=== PATIENT | female | born 1950 | race Caucasian/White ===

== ENCOUNTER → 2016-05-24 | Outpatient (CLI) | payer OTHER ==
[~2016-05-24] MED LIST: ASPCH81X PO; ASPEC325; FLEC100T21 PO; FLEC50TA20 PO; FRS/40 PO; GLC/500 PO; LORA-741 PO; MAGN400T6 PO; METO50TA16 PO; MULT-506 PO; TRIA75TA53 PO
[2016-05-24 18:07] LABS: MEAN CELL VOLUME 94.5 fL (80-100); MEAN CORPUSCULAR HEMOGLOBIN 33.2 pg (25-34); MEAN CORPUSCULAR HGB CONC 35.1 g/dl (32-36); MEAN PLATELET VOLUME 12.7 fL (7.4-10.4); PLATELET COUNT 318 K/uL (130-400); RED BLOOD COUNT 4.55 M/uL (4.2-5.4); WHITE BLOOD COUNT 8.95 K/uL (4.8-10.8)
[2016-05-24 18:36] LABS: URINE APPEARANCE TURBID (CLEAR); URINE BILIRUBIN NEG (NEG); URINE COLOR YELLOW; URINE EPITHELIAL CELL AUTO >30 /lpf (0-5); URINE NITRITE NEG (NEG); URINE SPECIFIC GRAVITY 1.011 (1.000-1.030); UROBILINOGEN NEG (NEG); ZZUR CULT IF INDIC CLEAN CATCH YES
[2016-05-24 18:42] LABS: MANUAL MICROSCOPIC REQUIRED? NO; REVIEW REQ? NO
[2016-05-24 18:44] LABS: ALT/SGPT 23 U/L (12-78); AST/SGOT 12 U/L (15-37); BLOOD UREA NITROGEN 31 mg/dl (7-18); BUN/CREATININE RATIO 30.6 (10-20); CALCIUM 8.9 mg/dl (8.5-10.1); CARBON DIOXIDE 28 mmol/L (21-32); CHLORIDE 105 mmol/L (98-107); GLUCOSE 121 mg/dl (70-99); POTASSIUM 3.7 mmol/L (3.5-5.1); SODIUM 143 mmol/L (136-145)
[2016-05-24 18:47] LABS: ALB/GLOB RATIO 0.9 (0.9-2); ALKALINE PHOSPHATASE 92 U/L (45-117)
== END | disposition home or self-care (01) ==
LOC: C.LABPVFM 15:45
PROVIDERS: ATTEND Dermatology
DX: L93.0 Discoid lupus erythematosus (principal)

== ENCOUNTER → 2016-09-06 | Outpatient (CLI) | payer OTHER ==
[~2016-09-06] MED LIST changes: +AMOX500T PO; +CEFU1TAB36 PO; +DOXY100C76 PO; +ENOX40IN SQ; +HYDR-5688 PO; +LEVO1TAB35 PO; +XRL15 PO
[2016-09-06 17:31] LABS: BLOOD UREA NITROGEN 29 mg/dl (7-18); BUN/CREATININE RATIO 31.6 (10-20); CALCIUM 8.8 mg/dl (8.5-10.1); CARBON DIOXIDE 29 mmol/L (21-32); CHLORIDE 106 mmol/L (98-107); CREATININE 0.91 mg/dl (0.60-1.20); GLUCOSE 91 mg/dl (70-99); POTASSIUM 4.1 mmol/L (3.5-5.1); SODIUM 142 mmol/L (136-145)
[2016-09-06 17:33] LABS: CHOLESTEROL 215 mg/dl (0-200); CHOLESTEROL/HDL RATIO 5.1; HDL CHOLESTEROL 42 mg/dl; LDL CHOLESTEROL CALCULATED 125 mg/dl; TRIGLYCERIDES 240 mg/dl (0-150); VERY LOW DENSITY LIPOPROT CALC 48 mg/dl
[2016-09-06 17:44] LABS: RATIO 8.1 mcg/mg (0-30.0)
[2016-09-07 05:54] LABS: ESTIMATED AVERAGE GLUCOSE 126 mg/dl; HA1C FLAG Normal (Normal)
== END | disposition home or self-care (01) ==
LOC: C.LABPVFM 15:47
PROVIDERS: ATTEND Nurse Practitioner
DX: E78.5 Hyperlipidemia, unspecified (principal); E11.9 Type 2 diabetes mellitus without complications; E55.9 Vitamin D deficiency, unspecified; I10 Essential (primary) hypertension

== ENCOUNTER → 2017-01-29 | Day surgery (SDC) | payer OTHER ==
[2017-01-17 08:26] VITALS: Ht 170.2 cm; Wt 118.2 kg
[~2017-01-29] VITALS: Ht 170.2 cm; Wt 118.2 kg
[~2017-01-29] MED LIST changes: -AMOX500T PO; -ASPEC325; -CEFU1TAB36 PO; -DOXY100C76 PO; -ENOX40IN SQ; -FLEC50TA20 PO; -HYDR-5688 PO; -LEVO1TAB35 PO; +LIDOCAINE HCL 2% 2 ML VIAL (20MG/ML) ONE; +MIDAZOLAM HCL 1 MG/ML 2ML VIAL ONE; +PROPOFOL IV EMULSION 10 MG/ML 20 ML VIAL IV ONE; -XRL15 PO
[2017-01-29 09:18] VITALS: TEMP 36.6
--- NOTE | 2017-01-29 10:02 | Endo History and Physical ---
History & Physical Date of Service: Jan 29, 2017. Chief Complaint: history of polyps Referring Physician: Monika HOLDEN History of Present Illness 67 yo CF who presents for colonoscopy secondary to history of colon polyps. Past Surgical History Hx Cardiac Surgery: Yes (HEART CATH-NO STENTS) Hx Internal Defibrillator: No Hx Pacemaker: No Hx Abdominal Surgery: Yes (OVARIAN TUMOR REMOVAL) Hx of Implantable Prosthesis: No Hx Post-Op Nausea and Vomiting: No Hx Cancer Surgery: Yes (BILAT MASTECTOMY WITH RECONSTRUCTION, KANE BSO) Hx Thoracic Surgery: No Hx Orthopedic: No Hx Urinary Tract Surgery: No Family History Polyp Social History Smoking Status: Never Smoker Hx Substance Use: No Hx Alcohol Use: Yes (OCCASIONALLY) Allergies Coded Allergies: No Known Allergies (Verified , 01/17/17) Current Medications Reported Home Medications Medications Dose Route/Sig Max Daily Dose Days Date Category Aspirin Chewable (Aspirin) 81 Mg Chew 81 Mg PO 3XWK 01/17/17 Reported Mag-Ox (Magnesium Oxide) 400 Mg Tab 400 Mg PO QAM 01/17/17 Reported Multivitamin (Multivitamins) Tab 1 Tab PO QAM 01/17/17 Reported Lasix (Furosemide) 40 Mg Tab 40 Mg PO DAILY PRN 01/17/17 Reported Ativan (Lorazepam) 0.5 Mg Tab 0.5 Mg PO TID PRN 01/17/17 Reported Maxzide 75MG/50MG (Triamterene/HCTZ) Tab 1 Tab PO QAM 01/17/17 Reported Glucophage (Metformin Hcl) 500 Mg Tab 500 Mg PO BID 01/17/17 Reported Lopressor (Metoprolol Tartrate) 50 Mg Tab 50 Mg PO BID 01/17/17 Reported Tambocor (Flecainide Acetate) 100 Mg Tab 100 Mg PO BID 01/17/17 Reported Vital Signs Weight (Kilograms): 118.18 Height (Feet): 5 Height (Inches): 7 Date Time Temp Pulse Resp B/P (MAP) Pulse Ox O2 Delivery O2 Flow Rate FiO2 01/29/17 09:18 36.6 56 20 173/85 (114) 97 Room Air Physical Exam General Appearance: WD/WN, no apparent distress Respiratory/Chest: Auscultation: breath sounds normal Cardiovascular: Heart Auscultation: RRR Abdomen: Bowel Sounds: normal Inspection & Palpation: soft, non-distended, no tenderness, guarding & rebound Assessment and Plan Assessment: 67 yo CF who presents for colonoscopy secondary to history of colon polyps. Plan: Proceed with colonoscopy.
--- NOTE | 2017-01-29 11:11 | Discharge Instructions ---
Endoscopy Patient Instructions Date / Procedure(s) Performed Jan 29, 2017. Colonoscopy Allergy Information Coded Allergies: No Known Allergies (Verified , 01/17/17) Discharge Date / Findings Jan 29, 2017. Colon polyps Diverticulosis Internal hemorrhoids Medication Instructions Stopped Medication(s): last dose couple weeks ago,Glucophage Friday,MVI and Magnesium week ago OK to resume all medications today as prescribed Reported Home Medications Medications Dose Route/Sig Max Daily Dose Days Date Category Aspirin Chewable (Aspirin) 81 Mg Chew 81 Mg PO 3XWK 01/17/17 Reported Mag-Ox (Magnesium Oxide) 400 Mg Tab 400 Mg PO QAM 01/17/17 Reported Multivitamin (Multivitamins) Tab 1 Tab PO QAM 01/17/17 Reported Lasix (Furosemide) 40 Mg Tab 40 Mg PO DAILY PRN 01/17/17 Reported Ativan (Lorazepam) 0.5 Mg Tab 0.5 Mg PO TID PRN 01/17/17 Reported Maxzide 75MG/50MG (Triamterene/HCTZ) Tab 1 Tab PO QAM 01/17/17 Reported Glucophage (Metformin Hcl) 500 Mg Tab 500 Mg PO BID 01/17/17 Reported Lopressor (Metoprolol Tartrate) 50 Mg Tab 50 Mg PO BID 01/17/17 Reported Tambocor (Flecainide Acetate) 100 Mg Tab 100 Mg PO BID 01/17/17 Reported Provider Instructions Activity Restrictions - No exercising or heavy lifting for 24 hours. - Do not drink alcohol the day of the procedure. - Do not drive a car or operate machinery until the day after the procedure. - Do not make any important decisions or sign important papers in 24 hours after the procedure. Following Day: - Return to full activity which may include returning to work/school. Diet Start your diet with liquids and light foods (jello, soup, juice, toast). Then eat your usual diet if not nauseated. Treatment For Common After Affects For mild abdominal pain, bloating, or excessive gas: - Rest - Eat lightly - Lie on right side Follow-Up Information Follow-up with Monika HOLDEN as scheduled Anesthesia Information What You Should Know You have had a procedure that required some medicine to reduce anxiety and discomfort. This treatment is called moderate sedation. After receiving the treatment, you may be sleepy, but you will be able to breathe on your own. The effects of the treatment may last for several hours. Follow these instructions along with Activity/Diet recommendations noted above: * Do NOT do anything where dizziness or clumsiness would be dangerous. * Rest quietly at home today, then you can be up and about tomorrow. * Have a responsible person stay with you the rest of today. * You may have had an I.V. today. If so, you may take the dressing off later today. Recommendations Call your doctor if: * Trouble breathing * Continuous vomiting for more than 24 hours * Temperature above 101 degrees * Severe abdominal pain or bloating * Pain not relieved by pain medicine ordered * There is increased drainage or redness from any incision * A large amount of rectal bleeding greater than 2-3 tablespoons. (If you had a polyp/s removed or have hemorrhoids, a small amount of blood - from the rectum is to be expected.) * You have any unanswered questions or concerns. IN THE EVENT OF A SERIOUS EMERGENCY, GO TO THE NEAREST EMERGENCY ROOM Your discharge instructions were prepared by provider Philippe Nino. Patient Instructions Signature Page Verena Field Patient (or Guardian) Signature/Date: I have read and understand the instructions given to me by my caregivers. Caregiver/RN/Doctor Signature/Date: The above-named patient and/or guardian has received patient instructions on this date. + Original Patient Signature Page (only) stays with chart. Please make copy for patient.
--- NOTE | 2017-01-29 11:20 | GI REPORT ---
Procedure Date: 01/29/2017 10:16 AM Procedure: Colonoscopy Indications: High risk colon cancer surveillance: Personal history of colonic polyps Medicines: Monitored Anesthesia Care Complications: No immediate complications. Estimated Blood Loss: Estimated blood loss: none. Procedure: Pre-Anesthesia Assessment: - Prior to the procedure, a History and Physical was performed, and patient medications and allergies were reviewed. The patient's tolerance of previous anesthesia was also reviewed. The risks and benefits of the procedure and the sedation options and risks were discussed with the patient. All questions were answered, and informed consent was obtained. Prior Anticoagulants: The patient has taken aspirin, last dose was 14 days prior to procedure. ASA Grade Assessment: III - A patient with severe systemic disease. After reviewing the risks and benefits, the patient was deemed in satisfactory condition to undergo the procedure. After I obtained informed consent, the scope was passed under direct vision. Throughout the procedure, the patient's blood pressure, pulse, and oxygen saturations were monitored continuously. The scope was introduced through the anus and advanced to the cecum, identified by appendiceal orifice and ileocecal valve. The colonoscopy was performed without difficulty. The patient tolerated the procedure well. The quality of the bowel preparation was good. The ileocecal valve, appendiceal orifice, and rectum were photographed. Findings: Three sessile polyps were found in the sigmoid colon, in the ascending colon and in the cecum. The polyps were 5 to 8 mm in size. These polyps were removed with a hot snare. Resection and retrieval were complete. To prevent bleeding after the polypectomy, one hemostatic clip was successfully placed (MR conditional). There was no bleeding at the end of the procedure. Multiple small-mouthed diverticula were found in the sigmoid colon. Non-bleeding internal hemorrhoids were found during retroflexion. The hemorrhoids were small. Impression: - Three 5 to 8 mm polyps in the sigmoid colon, in the ascending colon and in the cecum, removed with a hot snare. Resected and retrieved. Clip (MR conditional) was placed. - Diverticulosis in the sigmoid colon. - Non-bleeding internal hemorrhoids. Recommendation: - Resume previous diet. - Continue present medications. - Repeat colonoscopy for surveillance based on pathology results. - Return to primary care physician as previously scheduled. Philippe Nino DO 01/29/2017 11:20:07 AM This report has been signed electronically. Note Initiated On: 01/29/2017 10:16 AM I attest to the content of the Intraoperative Record and orders documented therein, exceptions below
[2017-01-29 11:43] VITALS: BP 109/72; PULSE 45; O2SAT 97
--- NOTE | 2017-01-29 13:04 | Anesthesiology Progress Note ---
Anesthesia Post Op Note Date & Time Jan 29, 2017 at 13:04 Vital Signs Pain Intensity: 0 Vital Signs Past 12 Hours Date Time Temp Pulse Resp B/P (MAP) Pulse Ox O2 Delivery O2 Flow Rate FiO2 01/29/17 11:43 45 20 109/72 (84) 97 Room Air 01/29/17 11:28 51 20 110/69 (83) 97 Room Air 01/29/17 11:13 50 20 100/50 (67) 97 Room Air 01/29/17 09:18 36.6 56 20 173/85 (114) 97 Room Air Notes Mental Status: alert / awake / arousable, participated in evaluation Pt Amnestic to Procedure: Yes Nausea / Vomiting: adequately controlled Pain: adequately controlled Airway Patency, RR, SpO2: stable & adequate BP & HR: stable & adequate Hydration State: stable & adequate Anesthetic Complications: no major complications apparent
== END | disposition home or self-care (01) ==
LOC: C.GI 08:45
PROVIDERS: ATTEND Internal Medicine
DX: Z12.11 Encounter for screening for malignant neoplasm of colon (principal); D12.5 Benign neoplasm of sigmoid colon; D12.2 Benign neoplasm of ascending colon; D12.0 Benign neoplasm of cecum; K57.30 Diverticulosis of large intestine without perforation or abscess without bleeding; K64.8 Other hemorrhoids; Z86.010 Personal history of colon polyps; E11.9 Type 2 diabetes mellitus without complications; I10 Essential (primary) hypertension; Z86.711 Personal history of pulmonary embolism; Z90.13 Acquired absence of bilateral breasts and nipples; Z98.890 Other specified postprocedural states; Z68.41 Body mass index [BMI] 40.0-44.9, adult; Z83.71 Family history of colonic polyps

== ENCOUNTER 2017-02-01 18:11 | Emergency (ER) | payer OTHER ==
[~2017-02-01 18:11] MED LIST changes: +AMOX500T PO; -ASPCH81X PO; +DOXY100C76 PO; +ENOX40IN SQ; +HYDR-5688 PO; -LIDOCAINE HCL 2% 2 ML VIAL (20MG/ML) ONE; -MIDAZOLAM HCL 1 MG/ML 2ML VIAL ONE; -PROPOFOL IV EMULSION 10 MG/ML 20 ML VIAL IV ONE
[2017-02-01 18:14] VITALS: TEMP 36.6
[2017-02-01 18:50] VITALS: BP 157/86; PULSE 61; O2SAT 93
--- NOTE | 2017-02-01 19:07 | EMERGENCY ROOM VISIT NOTE ---
History Report prepared by Santiago: Melina Kearney Under the Supervision of: Dr. Beni Gamboa M.D. First contact with patient: 18:17 Chief Complaint: BLEEDING Stated Complaint: SURGERY AND NOW BLEEDING ON LEFT LEG History of Present Illness The patient is a 67 year old female who presents to the Emergency Room with complaints of persistent bleeding from a surgical wound starting [employer]. The patient was seen in the ED yesterday after a dog bite to the left leg. She was missing a piece of tissue. She was taken to the OR to have the wound washed out. She had a wound vac placed today. She received a tetanus shot yesterday and police obtained records about the dog which showed that the dog's rabies vaccine was up to date. The wound was doing well upon leaving the hospital at 1430. She is not having any pain or fever. She noticed that there was blood pooling around the wound vac site which prompted her to present to the ED. She was given a shot of Lovenox prior to leaving because she has a history of PE after surgery. She was discharged with a prescription for 14 days of Lovenox. She has a history of diabetes. Source of History: patient, spouse/significant other Onset: [employer] Position: leg (left) Quality: other (bleeding) Timing: other (persistent) Associated Symptoms: No fevers Note: Pt denies leg pain. Review of Systems See HPI for pertinent positives & negatives. A total of 10 systems reviewed and were otherwise negative. Past Medical & Surgical Medical Problems: (1) Dog bite Old medical records were reviewed. Nurse's notes were reviewed and I agree with. Family History No pertinent family history stated. Social History Smoking Status: Never Smoker Drug Use: none Marital Status: Housing Status: lives with significant other Current/Historical Medications Scheduled Amoxicillin & Pot Clavulanate (Augmentin 500MG), 500 MG PO Q8H Enoxaparin (Lovenox), 40 MG SQ DAILY Flecainide (Tambocor), 100 MG PO BID Magnesium Oxide (Mag-Ox), 400 MG PO QAM Metformin Hcl (Glucophage), 500 MG PO BID Metoprolol Tartrate (Lopressor) (Lopressor), 50 MG PO BID Multivitamin (Multivitamin), 1 TAB PO QAM Triamterene/Hctz (Maxzide 75MG/50MG), 1 TAB PO QAM Scheduled PRN Furosemide (Lasix), 40 MG PO DAILY PRN for SWELLING Hydrocodone/Acetaminophen 5MG/325MG (Butler 5MG/325MG), 1 TABLET PO Q6H PRN for Pain Lorazepam (Ativan), 0.5 MG PO TID PRN for Sleep Physical Exam Vital Signs Date Time Temp Pulse Resp B/P (MAP) Pulse Ox O2 Delivery O2 Flow Rate FiO2 02/01/17 18:50 61 14 157/86 93 Room Air 02/01/17 18:14 36.6 64 18 156/92 95 Room Air Physical Exam General: Non-ill appearing older female in no acute distress. HEENT: Normal cephalic atraumatic. Pupils are equal round and reactive to light. Extraocular movements are intact. Oropharynx is pink with moist mucous membranes. No swelling of the mouth lips or tongue. Neck: Supple with a midline trachea. No meningeal signs or stiffness, no JVD or bruits. No Stridor. Chest: Clear to auscultation bilaterally. No wheezes or rhonchi. No increased work of breathing. Heart: regular rate and rhythm. Abdomen: Soft nontender, nondistended without rebound guarding or rigidity. Extremities: No cyanosis clubbing or edema. No calf tenderness or assymetry. LLE has a wound vac intact on lateral aspect. There is a small amount of dried blood on the inferior surface, but no active bleeding. Foot is pink and well perfused appearing with normal motor, sensation, cap refill, and pulse. Spine/Back. Non tender to palpation. No CVA tenderness Skin: Good turgor without rashes. Neurologic exam: Cranial nerves two through 12 are intact. Motor and sensation are intact and symmetrical throughout. Medical Decision & Procedures ED Course 1817: Past medical records reviewed. The patient was evaluated in room A11B, and a complete history and physical examination were performed. 1830: I discussed the patient's case with Dr. Pineda, [facility] orthopedic surgery. He recommends the patient be reassured and placed in a compressive dressing. He also recommends holding the Lovenox for 4 days and staying off the leg and elevating. 1837: Upon reevaluation, the patient is resting comfortably. I discussed the results and treatment plan with her. She verbalized agreement of the treatment plan. The patient was discharged home. Medical Decision Differentials include, but are not limited to; bleeding, infection. This patient comes in as described above I due to her well from treating her yesterday . she is a wound VAC on and was debridement in the OR. She did receive a shot Lovenox. When she got home she was walking on her leg and has a small amount of blood in the wound VAC. There is no active bleeding at present. She is neurologically and neurovascularly intact. She has nothing to suggest compartment syndrome or sepsis or infection. I did discuss case with Dr. Pineda whorecommends having her hold her Lovenox for the next 4 days and apply an Carmelo wrap and have an elevated and stay off as much as possible. She had no further bleeding in the ER she should follow up with her doctor Friday for recheck and return if any further bleeding fever chills any new problems or concerns. Medication Reconcilliation Current Medication List: was personally reviewed by me Blood Pressure Screening Patient's blood pressure: Elevated blood pressure Blood pressure disposition: Elevated BP felt to be situational Consults Time Called: 1824 Consulting Physician: Dr. Pineda, [facility] orthopedic surgery Returned Call: 1829 I discussed the patient's case with him. He recommends the patient be reassured and placed in a compressive dressing. He also recommends holding the Lovenox for 4 days and staying off the leg and elevating. Impression Primary Impression: Bleeding from wound Scribe Attestation The scribe's documentation has been prepared under my direction and personally reviewed by me in its entirety. I confirm that the note above accurately reflects all work, treatment, procedures, and medical decision making performed by me. Departure Information Dispostion Home / Self-Care Referrals Monika Loco, [email or web address] (PCP) Forms HOME CARE DOCUMENTATION FORM, IMPORTANT VISIT INFORMATION Patient Instructions My [facility] Additional Instructions Rest. Elevate. Use compression such as an Carmelo wrap but not too tight Hold your Lovenox for the next 4 days Return if: Increasing bleeding, worsening of symptoms, numbness or weakness, fever or chills, any new problems or concerns Have your regular doctor or Dr. Pineda recheck you on Friday
== END 2017-02-01 18:52 | disposition home or self-care (01) ==
LOC: C.EDB 18:13 → C.EDA 18:52
DX: L76.22 Postprocedural hemorrhage of skin and subcutaneous tissue following other procedure (principal); E11.9 Type 2 diabetes mellitus without complications; Z86.711 Personal history of pulmonary embolism; Z79.01 Long term (current) use of anticoagulants; Z79.84 Long term (current) use of oral hypoglycemic drugs

== ENCOUNTER 2017-02-04 23:19 | Inpatient (IN) | payer OTHER ==
[~2017-02-04] VITALS: Ht 167.6 cm; Wt 115.6 kg
[~2017-02-04 23:19] MED LIST changes: -DOXY100C76 PO
[2017-02-05] VITALS (8 sets, daily range): BP systolic 115–155; BP diastolic 62–95; PULSE 55–66; TEMP 36.6–37.1; O2SAT 93–96; Ht 167.6 cm; Wt 115.6 kg
[2017-02-05] MEDS ORDERED: OPTIRAY 320 IV PRN
--- NOTE | 2017-02-05 00:05 | EMERGENCY ROOM VISIT NOTE ---
History Report prepared by Santiago: Gene Evans Under the Supervision of: Dr. Juvencio Urbano M.D. First contact with patient: 23:33 Chief Complaint: RIB PAIN Stated Complaint: PAIN RIGHT LOWER RIB CAGE History of Present Illness The patient is a 67 year old female who presents to the Emergency Room with complaints of constant right lower rib pain starting this evening after dinner. The patient states that the pain is worse with deep inspiration. She states that she has a history of blood clots, and she is denying any shortness of breath. She additionally states that she was recently bit by a dog a week ago then a surgery, and afterwards she was put on Lovenox, though she recently stopped them because she was having some bleeding. The patient's notes that the patient recently had a colonoscopy, and she had some polyps removed. The patient denies any fevers. Source of History: patient Onset: this evening after dinner Position: other (right rib) Timing: constant Modifying Factors (Worsening): other (deep inspiration) Associated Symptoms: No fevers, No SOB Review of Systems See HPI for pertinent positives & negatives. A total of 10 systems reviewed and were otherwise negative. Past Medical & Surgical Medical Problems: (1) Dog bite Social History Smoking Status: Never Smoker Drug Use: none Marital Status: Housing Status: lives with significant other Occupation Status: employed Current/Historical Medications Scheduled Amoxicillin & Pot Clavulanate (Augmentin 500MG), 500 MG PO Q8H Enoxaparin (Lovenox), 40 MG SQ DAILY Flecainide (Tambocor), 100 MG PO BID Magnesium Oxide (Mag-Ox), 400 MG PO QAM Metformin Hcl (Glucophage), 500 MG PO BID Metoprolol Tartrate (Lopressor) (Lopressor), 50 MG PO BID Multivitamin (Multivitamin), 1 TAB PO QAM Triamterene/Hctz (Maxzide 75MG/50MG), 1 TAB PO QAM Scheduled PRN Furosemide (Lasix), 40 MG PO DAILY PRN for SWELLING Hydrocodone/Acetaminophen 5MG/325MG ([place] 5MG/325MG), 1 TABLET PO Q6H PRN for Pain Lorazepam (Ativan), 0.5 MG PO TID PRN for Sleep Allergies Coded Allergies: No Known Allergies (Unverified , 02/05/17) Physical Exam Vital Signs Date Time Temp Pulse Resp B/P (MAP) Pulse Ox O2 Delivery O2 Flow Rate FiO2 02/05/17 01:00 55 18 151/88 97 Room Air 02/04/17 23:24 36.9 57 18 129/83 95 Room Air Physical Exam GENERAL: Patient is anxious appearing and in minimal distress. HEENT: No acute trauma, normocephalic atraumatic, mucous membranes moist, no nasal congestion, no scleral icterus. NECK: No stridor, no adenopathy, no meningismus, trachea is midline. LUNGS: No dyspnea. Clear to auscultation and equal bilaterally. No wheeze, no rhonchi. HEART: Regular rate and rhythm. No murmurs, rubs, gallops appreciated. ABDOMEN: Soft, nontender, bowel sounds positive, no masses appreciated, no peritonitis. BACK: No midline tenderness, no CVA tenderness EXTREMITIES: Normal motion all extremities, no cyanosis, no edema. NEUROLOGIC: Alert and oriented, no acute motor or sensory deficits, no focal weakness, cranial nerves grossly intact. SKIN: No rash, no jaundice, no diaphoresis. Medical Decision & Procedures ER Provider Diagnostic Interpretation: Radiology results and stated below per my review and radiologist interpretation: CT CHEST With Contrast: Filling defect noted within the segmental/subsegmental right upper, middle and lower lobe as well as the left lower lobe pulmonary arteries suggesting pulmonary emboli. No central or saddle embolus. No right heart strain. Breathing motion artifact with dependent atelectasis. Right middle lobe pulmonary nodule measuring up to 6 mm (353). Groundglass opacity within the right upper lobe measuring up to 8 mm (3-96). In the absence of prior imaging demonstrating stability, consider follow-up according to Fleischner Society criteria. Small right and trace left pleural effusion. Postsurgical change within the right breast. Probable left mastectomy with breast augmentation. Subcentimeter mediastinal lymph nodes. Heart pericardium unremarkable. Upper abdomen is unremarkable. No acute osseous abnormality. Radiologist: Colt Victor MD Laboratory Results 02/04/17 23:55 Red Blood Count 4.74, Mean Corpuscular Volume 94.9, Mean Corpuscular Hemoglobin 32.3, Mean Corpuscular Hemoglobin Concent 34.0, Mean Platelet Volume 11.7, Neutrophils (%) (Auto) 71.4, Lymphocytes (%) (Auto) 18.4, Monocytes (%) (Auto) 8.9, Eosinophils (%) (Auto) 0.6, Basophils (%) (Auto) 0.4, Neutrophils # (Auto) 11.08, Lymphocytes # (Auto) 2.86, Monocytes # (Auto) 1.38, Eosinophils # (Auto) 0.10, Basophils # (Auto) 0.06 02/04/17 23:55 Test 02/04/17 23:55 02/05/17 00:03 White Blood Count 15.53 K/uL (4.8-10.8) Red Blood Count 4.74 M/uL (4.2-5.4) Hemoglobin 15.3 g/dL (12.0-16.0) Hematocrit 45.0 % (37-47) Mean Corpuscular Volume 94.9 fL (80-100) Mean Corpuscular Hemoglobin 32.3 pg (25-34) Mean Corpuscular Hemoglobin Concent 34.0 g/dl (32-36) Platelet Count 374 K/uL (130-400) Mean Platelet Volume 11.7 fL (7.4-10.4) Neutrophils (%) (Auto) 71.4 % Lymphocytes (%) (Auto) 18.4 % Monocytes (%) (Auto) 8.9 % Eosinophils (%) (Auto) 0.6 % Basophils (%) (Auto) 0.4 % Neutrophils # (Auto) 11.08 K/uL (1.4-6.5) Lymphocytes # (Auto) 2.86 K/uL (1.2-3.4) Monocytes # (Auto) 1.38 K/uL (0.11-0.59) Eosinophils # (Auto) 0.10 K/uL (0-0.5) Basophils # (Auto) 0.06 K/uL (0-0.2) RDW Standard Deviation 45.8 fL (36.4-46.3) RDW Coefficient of Variation 13.1 % (11.5-14.5) Immature Granulocyte % (Auto) 0.3 % Immature Granulocyte # (Auto) 0.05 K/uL (0.00-0.02) Prothrombin Time 10.1 SECONDS (9.0-12.0) Prothromb Time International Ratio 0.9 (0.9-1.1) Activated Partial Thromboplast Time 28.0 SECONDS (21.0-31.0) Partial Thromboplastin Ratio 1.1 Est Creatinine Clear Calc Drug Dose 61.9 ml/min Estimated GFR () 58.7 Estimated GFR (Non- 50.6 BUN/Creatinine Ratio 20.7 (10-20) Calcium Level 9.0 mg/dl (8.5-10.1) Troponin I < 0.015 ng/ml (0-0.045) Bedside Hemoglobin 15.6 g/dl (12.0-16.0) Bedside Hematocrit 46 % (37-47) Bedside Sodium 139 mEq/L (135-144) Bedside Potassium 4.2 mEq/L (3.3-5.0) Bedside Chloride 103 mEq/L (101-112) Bedside Total CO2 23 mEq/l (24-31) Anion Gap 18.0 mmol/L (16-25) Bedside Blood Urea Nitrogen 23 mg/dl (7-18) Bedside Creatinine 1.0 mg/dl (0.6-1.3) Bedside Glucose (other) 123 mg/dl (70-99) Bedside Ionized Calcium (Chuy) 1.11 mmol/l (1.12-1.32) Laboratory results as reviewed by me. ED Course 2333: The patient was evaluated in room B5. A complete history and physical exam was performed. 0127: Discussed the patient's case with Dr. Lomax. The patient will be evaluated for further treatment and disposition. 0132: Upon reevaluation, the patient is doing well. Discussed results and treatment plan with the patient. She verbalized understanding and agreement with the treatment plan. The patient will be evaluated for further management. Medical Decision Differential: Infectious, Reactive Airway Disease, Pneumonia, Pneumothorax, COPD , CHF, ACS, Pulmonary Embolism, MSK, GI, Dissection, amongst other etiologies entertained. Very pleasant 67 yr old female arrives for evaluation of right lower lateral chest pleuritic pain on deep inspiration. History of PE in past though off blood thinners up until a few days ago after requiring surgery on left ankle s/ p dog bite. Patient had been on lovenox for a few days then taken off for last couple due to increased bleeding from wound. Denies leg swelling/discomfort other than area of surgery. No other symptoms nor fevers. Given history we discussed options of CT PE, which is really only way to know for sure if there is a PE and she is agreeable to this. CT with multiple areas of small PEs. No infarct nor other acute emergent issues noted. Basic labs obtained which are unremarkable other than mildly elevated WBC though no evidence of infection. Hospitalist consulted and will bring her in and start Heparin to monitor for further bleeding from wound. Medication Reconcilliation Current Medication List: was personally reviewed by me Blood Pressure Screening Patient's blood pressure: Elevated blood pressure Managed by the hospitalist Consults Time Called: 0120 Consulting Physician: Dr. Lomax Returned Call: [phone] Discussed the patient's case with Dr. Lomax. The patient will be evaluated for further treatment and disposition. Impression Primary Impression: Pulmonary embolism Scribe Attestation The scribe's documentation has been prepared under my direction and personally reviewed by me in its entirety. I confirm that the note above accurately reflects all work, treatment, procedures, and medical decision making performed by me. Departure Information Dispostion Being Evaluated By Hospitalist Referrals No Doctor, Assigned (PCP) Patient Instructions [facility]
[2017-02-05 00:15] LABS: ISTAT HEMOGLOBIN 15.6 g/dl (12.0-16.0); ISTAT IONIZED CALCIUM 1.11 mmol/l (1.12-1.32)
[2017-02-05 01:40] LABS: BASO % 0.4 %; BASO ABS # 0.06 K/uL (0-0.2); COMPLETE YES; EOS % 0.6 %; IG% 0.3 %; LYMPH % 18.4 %; LYMPH ABS # 2.86 K/uL (1.2-3.4); MEAN CELL VOLUME 94.9 fL (80-100); MEAN CORPUSCULAR HEMOGLOBIN 32.3 pg (25-34); MEAN PLATELET VOLUME 11.7 fL (7.4-10.4); MONO % 8.9 %; NEUT % 71.4 %; PLATELET COUNT 374 K/uL (130-400); RED BLOOD COUNT 4.74 M/uL (4.2-5.4); WHITE BLOOD COUNT 15.53 K/uL (4.8-10.8)
[2017-02-05 01:43] LABS: INR 0.9 (0.9-1.1); PARTIAL THROMBOPLASTIN RATIO 1.1; PROTHROMBIN TIME (PATIENT) 10.1 SECONDS (9.0-12.0)
[2017-02-05 01:48] LABS: BLOOD UREA NITROGEN 23 mg/dl (7-18); BUN/CREATININE RATIO 20.7 (10-20); CARBON DIOXIDE 26 mmol/L (21-32); CHLORIDE 105 mmol/L (98-107); CREATININE 1.11 mg/dl (0.60-1.20); GLUCOSE 121 mg/dl (70-99); POTASSIUM 4.1 mmol/L (3.5-5.1); SODIUM 139 mmol/L (136-145)
[2017-02-05] MEDS ORDERED: MAGNESIUM HYDROXIDE SUSP 30 ML UDC PO PRN (02:30)
[2017-02-05] MEDS ORDERED: HYDROCODONE/ACETAMOPHEN 5/325MG TAB PO PRN (02:30)
[2017-02-05] MEDS ORDERED: ALUMINUM/MAGNESIUM/SIMETH (MAALOX MAX) 30 ML UDC PO PRN (02:30)
[2017-02-05] MEDS ORDERED: POLYETHYLENE (MIRALAX) 17 GM PACK PO PRN (02:30)
[2017-02-05] MEDS ORDERED: FUROSEMIDE 40 MG TAB PO PRN (02:30)
[2017-02-05] MEDS ORDERED: ACETAMINOPHEN 325 MG TAB PO PRN (02:30)
[2017-02-05] MEDS ORDERED: ONDANSETRON INJ 2 MG/ML 2 ML VIAL IV PRN (02:30)
[2017-02-05] MEDS ORDERED: HEPARIN 25000 UNIT/500 ML D5W ONE (02:35)
[2017-02-05] MEDS ORDERED: HEPARIN SOD 5000 UNIT/0.5 ML CARP ONE (02:35)
--- NOTE | 2017-02-05 03:22 | History and Physical ---
History & Physical Date & Time of Service: Feb 05, 2017 at 03:05 Chief Complaint: Pain Right Lower Rib Cage Primary Care Physician: Monika Loco C.R.N.P History of Present Illness Source: patient This is a 67 yo f with a history of PE which is suffering from a pulmonary embolism. The patient was having dinner this evening when she started to notice right lower rib pain which is sharp and painful with deep breaths only. The patient does have a history of PE and came to the ED for evaluation. She denies having SOB or chest pain or hemoptysis. She notes that she has a tendency to develop clots after surgeries. Her most recent PE was in 2004 after a mastectomy for breast cancer. She was placed on an injectable for a short period of time but refused to be placed on coumadin long-term. She was recently bitten by a dog in the left lower extremity and because of how extensive the bite was the patient was being seen by [facility] orthopedics. She was placed on Lovenox considering her history and after one dose developed significant bleeding from the wound site. She was recommended to hold the lovenox for four days and she was to restart the medication tomorrow. She notes that the wound vac was to be removed on . She notes she does have a history of a fibb requiring cardioversion however she states that she also refused warfarin for this. Past Medical/Surgical History A fibb DMII HTN Breast cancer Mastectomy Pulmonary emboli Family History No significant family history Social History Smoking Status: Never Smoker Smokeless Tobacco Use: No Alcohol Use: none Drug Use: none Marital Status: Housing status: lives with family Occupational Status: employed Immunizations History of Influenza Vaccine: No History of Tetanus Vaccine?: Yes Tetanus Immunization Date: Jun 12, 2001 History of Pneumococcal: No History of Hepatitis B Vaccine: No Multi-Drug Resistant Organisms History of MDRO: No Allergies Coded Allergies: No Known Allergies (Unverified , 02/05/17) Home Medications Scheduled Amoxicillin & Pot Clavulanate (Augmentin 500MG), 500 MG PO Q8H Enoxaparin (Lovenox), 40 MG SQ DAILY Flecainide (Tambocor), 100 MG PO BID Magnesium Oxide (Mag-Ox), 400 MG PO QAM Metformin Hcl (Glucophage), 500 MG PO BID Metoprolol Tartrate (Lopressor) (Lopressor), 50 MG PO BID Multivitamin (Multivitamin), 1 TAB PO QAM Triamterene/Hctz (Maxzide 75MG/50MG), 1 TAB PO QAM Scheduled PRN Furosemide (Lasix), 40 MG PO DAILY PRN for SWELLING Hydrocodone/Acetaminophen 5MG/325MG ([place] 5MG/325MG), 1 TABLET PO Q6H PRN for Pain Lorazepam (Ativan), 0.5 MG PO TID PRN for Sleep Review of Systems Constitutional: No fever, No chills, No sweats Eyes: No worsening of vision ENT: No hearing loss Respiratory: No cough, No sputum, No wheezing, No shortness of breath, No dyspnea on exertion, No dyspnea at rest Cardiovascular: No chest pain Abdomen: No pain, No nausea, No vomiting Musculoskeletal: No joint pain, No muscle pain Genitourinary - Female: No dysuria Neurologic: + numbness/tingling (BL), No weakness, No balance problems Psychiatric: No depression symptoms Endocrine: No fatigue Integumentary: No rash Physical Exam Vital Signs Date Time Temp Pulse Resp B/P (MAP) Pulse Ox O2 Delivery O2 Flow Rate FiO2 02/05/17 02:41 56 20 179/105 96 Room Air 02/05/17 01:00 55 18 151/88 97 Room Air 02/04/17 23:24 36.9 57 18 129/83 95 Room Air General Appearance: no apparent distress Head: normocephalic, atraumatic Eyes: normal inspection ENT: normal ENT inspection Neck: supple Respiratory/Chest: normal breath sounds, no respiratory distress, no accessory muscle use Cardiovascular: regular rate, rhythm, no murmur, normal peripheral pulses Abdomen/GI: normal bowel sounds, non tender, soft Back: normal inspection, no CVA tenderness Extremities/Musculoskelatal: normal inspection, + pertinent finding (wound on left LE is examined and no significant erythema surrounding , mastectomy scars noted) Neurologic/Psych: alert, normal mood/affect, oriented x 3 Skin: normal color, warm/dry, no rash Lymphatic: no adenopathy Diagnostics Laboratory Results Results Past 24 Hours Test 02/04/17 23:55 02/05/17 00:03 Range/Units White Blood Count 15.53 4.8-10.8 K/uL Red Blood Count 4.74 4.2-5.4 M/uL Hemoglobin 15.3 12.0-16.0 g/dL Hematocrit 45.0 37-47 % Mean Corpuscular Volume 94.9 80-100 fL Mean Corpuscular Hemoglobin 32.3 25-34 pg Mean Corpuscular Hemoglobin Concent 34.0 32-36 g/dl Platelet Count 374 130-400 K/uL Mean Platelet Volume 11.7 7.4-10.4 fL Neutrophils (%) (Auto) 71.4 % Lymphocytes (%) (Auto) 18.4 % Monocytes (%) (Auto) 8.9 % Eosinophils (%) (Auto) 0.6 % Basophils (%) (Auto) 0.4 % Neutrophils # (Auto) 11.08 1.4-6.5 K/uL Lymphocytes # (Auto) 2.86 1.2-3.4 K/uL Monocytes # (Auto) 1.38 0.11-0.59 K/uL Eosinophils # (Auto) 0.10 0-0.5 K/uL Basophils # (Auto) 0.06 0-0.2 K/uL RDW Standard Deviation 45.8 36.4-46.3 fL RDW Coefficient of Variation 13.1 11.5-14.5 % Immature Granulocyte % (Auto) 0.3 % Immature Granulocyte # (Auto) 0.05 0.00-0.02 K/uL Prothrombin Time 10.1 9.0-12.0 SECONDS Prothromb Time International Ratio 0.9 0.9-1.1 Activated Partial Thromboplast Time 28.0 21.0-31.0 SECONDS Partial Thromboplastin Ratio 1.1 Sodium Level 139 136-145 mmol/L Potassium Level 4.1 3.5-5.1 mmol/L Chloride Level 105 98-107 mmol/L Carbon Dioxide Level 26 21-32 mmol/L Anion Gap 8.0 18.0 16-25 mmol/L Blood Urea Nitrogen 23 7-18 mg/dl Creatinine 1.11 0.60-1.20 mg/dl Est Creatinine Clear Calc Drug Dose 61.9 ml/min Estimated GFR () 58.7 Estimated GFR (Non- 50.6 BUN/Creatinine Ratio 20.7 10-20 Random Glucose 121 70-99 mg/dl Calcium Level 9.0 8.5-10.1 mg/dl Troponin I < 0.015 0-0.045 ng/ml Bedside Hemoglobin 15.6 12.0-16.0 g/dl Bedside Hematocrit 46 37-47 % Bedside Sodium 139 135-144 mEq/L Bedside Potassium 4.2 3.3-5.0 mEq/L Bedside Chloride 103 101-112 mEq/L Bedside Total CO2 23 24-31 mEq/l Bedside Blood Urea Nitrogen 23 7-18 mg/dl Bedside Creatinine 1.0 0.6-1.3 mg/dl Bedside Glucose (other) 123 70-99 mg/dl Bedside Ionized Calcium (Chuy) 1.11 1.12-1.32 mmol/l Diagnostic Radiology Ct chest with contrast filling defect noted within the segmental/ subsegmental right upper, middle and lower lobe as well as the left lower lobe pulmonary arteries suggetsing pulmonary emboli. No central or saddle embolus. No right heart strain ground glass opacity within the right upper lobe measuring up to 8 mm; consider follow up small right and trace left pleural effusion sub centimeter mediastinal lumph nodes Impression Assessment and Plan This is a 67 yo f suffering from a pulmonary embolus. Considering that the patient has an ongoing open wound on her left LE will place the patient on heparin drip as if she starts to develop bleeding it can be d/c quickly. Bilateral pulmonary emboli - tele admission - Heparin standard without bolus - will monitor for S&S of bleeding from wound site - LE doppler Wound on left LE - consider ortho consult with [facility] if patient will be here > 48 hours as she was to have wound vac removed - continue Augmentin DMIII - metformin held - insulin ISS with BSG AC HS HTN - continue lasix 40 mg daily, Metoprolol 50 mg daily, Triamterine/ HCTZ 75/50 daily A fibb - continue flecainide and MagOxide DVT Prophylaxis - heparin drip FULL CODE Attending Addendum: I have physically seen and examined this patient, have directed the resident's medical activities, and agree with the H&P as noted above with the following exceptions as noted. The patient is awake, alert and oriented 3, well-developed and well-nourished, normocephalic and atraumatic, lying in bed and in no acute distress. HEENT--PERRL, EOMI, mucous membranes and oropharynx normal. Neck--supple, no JVD or bruits, thyroid normal, trachea midline, no adenopathy. Heart--normal S1 and S2, no extra beats, no murmurs, rubs or gallops. Lungs--clear bilaterally but decreased throughout, no respiratory distress, no accessory muscle use. Abdomen--normal bowel sounds and soft, nontender and nondistended, no hernias or masses, no organomegaly, obese. Extremities--no cyanosis, clubbing. 1+ left lower extremity pitting edema. There are good distal pulses b/l. Dermatologic--left lower extremity wound dressed, with no significant erythema or warmth surrounding, but 1+ pitting edema noted. Neurologic--cranial nerves II through XII grossly intact. Rheumatologic--normal range of motion. Psychiatric--mildly anxious and depressed Assessment and Plan: Pulmonary emboli involving right middle, right upper and right lower lobe, along with left lower lobe-- The patient will be admitted to the telemetry unit for close oxygen monitoring. Heparin IV standard dose per protocol without bolus. Order bilateral lower extremity venous Dopplers to assess for DVT. Left lower extremity wound secondary to dog bite-- She has been following with Dr. Beltran from [facility], and is due for dressing removal on February 06. Diabetes mellitus-- Hold metformin. Place on Accu-Cheks before meals and at bedtime with NovoLog coverage per scale. Atrial fibrillation/Hypertension-- Continue flight denied, mag oxide, Lasix, metoprolol and triamterene/HCTZ Anxiety with depression-- She does report reliving the dog bite event, and it does affect her interrupted sleep. We'll have available Ativan 0.5 mg by mouth at bedtime when necessary. I told her that is not unusual in the short interval after a trauma to relive the event. She should discuss this with her PCP, and if her symptoms should persist for a disproportionately long interval time, she may benefit from additional medications for treatment and/or counseling. Level of Care Telemetry Advanced Directives Existing Advance Directive: No Existing Living Will: No Existing Power of Forestry Foreman: No Resuscitation Status FULL RESUSCITATION VTE Prophylaxis VTE Risk Assessment Done? Y/N: Yes Risk Level: High Given or contraindicated: Other Anticoagulation Social Service Consult None Apply Note Total Time: Critical Care 30 - 74 minutes Additional Copies To Monika Loco C.R.N.P
[2017-02-05] MEDS ORDERED: GLUCAGON FOR INJ 1 MG VIAL SQ PRN (03:45)
[2017-02-05] MEDS ORDERED: GLUCOSE 40% GEL 15 GM TUBE PO PRN (03:45)
[2017-02-05] MEDS ORDERED: DEXTROSE 50% 50 ML SYR IV PRN (03:45)
[2017-02-05] MEDS ORDERED: GLUCOSE 10 TABS/TUBE PO PRN (03:45)
[2017-02-05] MEDS ORDERED: AMOXICILLIN/CLAVULANATE TAB 500 MG TAB PO SCH (06:00)
[2017-02-05] MEDS ORDERED: NURSING VERBAL MED ORDER ONE ×3 (06:15→19:30)
--- NOTE | 2017-02-05 06:32 | DIAGNOSTIC IMAGING REPORT ---
ULTRASOUND VENOUS DOPPLER LWR EXT BILA CLINICAL HISTORY: pulmonary emboli COMPARISON STUDY: No previous studies for comparison. FINDINGS: Real-time and color flow Doppler imaging were performed. Flow was seen within the femoral, popliteal and calf veins with no intraluminal thrombus demonstrated. The saphenous vein is patent. IMPRESSION: No evidence of lower extremity DVT. Electronically signed by: Alex Branch M.D. 02/05/2017 6:31 AM Dictated Date/Time: 02/05/2017 6:31 AM
--- NOTE | 2017-02-05 07:03 | DIAGNOSTIC IMAGING REPORT ---
(CHEST FOR PE) ANGIO WITH CT DOSE: 710.17 mGy.cm HISTORY: 67 years-old Female presents with acute right-sided rib pain with history of blood clots. TECHNIQUE: Multiple CTA images of the chest were obtained after the intravenous administration of 93 ml Optiray 320. Coronal and sagittal MIPS were obtained from the axial data set and were submitted for review. A dose lowering technique was utilized adhering to the principles of ALARA. COMPARISON: CT chest 06/15/2006. FINDINGS: CTA: Heart is mildly enlarged. Aortic annular calcifications. Mild mixed plaquing of the thoracic aorta with imaged great vessels patent. No aortic dissection or aneurysm identified. There is satisfactory opacification of the pulmonary arterial tree. Multiple filling defects within the pulmonary arteries are seen involving segmental and subsegmental branches of the right upper, middle and lower lobe with additional filling defects present within the segmental and subsegmental branches of the left upper and lower lobes. No evidence of right heart strain or central pulmonary embolus. CT CHEST: No dominant thyroid nodule. Nonspecific mildly prominent right hilar lymph nodes measure up to 9 mm in short axis. Trace right pleural effusion. Dependent groundglass opacities and linear consolidative densities suggest atelectasis. No large pulmonary infarction identified. There is a focal groundglass opacity, 8 x 6 mm within the apical segment right upper lobe on image 238 of series 4 which appears new from 06/15/2006. 6 mm noncalcified solid pulmonary nodule of the lateral segment right middle lobe on image 131 of series 4 is unchanged from 06/15/2006 compatible with benign etiology. No additional suspicious pulmonary nodules identified. Mild bilateral bronchial wall thickening. Central airways are patent. Imaged upper abdominal structures are unremarkable. 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 Prior right mastectomy. Probable left mastectomy with augmentation. Bones appear intact without suspicious lytic or blastic lesions identified. Multilevel advanced degenerative changes of the spine. IMPRESSION: 1. Multiple segmental and subsegmental pulmonary emboli involving all lobes bilaterally as above. No large central pulmonary emboli, evidence of right heart strain or large pulmonary infarction is identified. 2. Trace right pleural effusion. 3. Cardiomegaly. 4. 8 x 6 mm groundglass nodule of the apical segment right upper lobe, new from 06/15/2006. Follow-up according to the guidelines below recommended. 5. Additional incidental findings as above. Please refer to below summary of Fleischner criteria recommendations for follow-up of incidental CT nodules (Jannet Renee, Guidelines for management of small pulmonary nodules detected on CT scans: A statement from the Fleischner Society, Radiology 237: [phone].) SOLID NODULES Solitary nodule size: <6 mm * Low risk patients: no follow-up needed * high risk patients: optional CT at 12 months Solitary nodule size: 6-8 mm * Low risk patients: follow-up at 6-12 months, then consider further follow-up at 18-24 months * high risk patients: initial follow-up CT at 6-12 months and then at 18-24 months if no change Solitary nodule size: >8 mm * either low or high risk patients - consider follow-up CT at 3 months, and/or CT-PET, and/or biopsy Multiple nodules size: <6 mm * Low risk patients: no routine follow-up * high risk patients: optional CT at 12 months Multiple nodules size: 6-8 mm * Low risk patients: follow-up at 3-6 months, then consider further follow-up at 18-24 months * high risk patients: follow-up at 3-6 months, then at 18-24 months if no change Multiple nodules size: >8 mm * Low risk patients: follow-up at 3-6 months, then consider further follow-up at 18-24 months * high risk patients: follow-up at 3-6 months, then at 18-24 months if no change Note: newly detected indeterminate nodule in persons 35 years of age or older. * Low risk patients: minimal or absent history of smoking and/or other known risk factors * high risk patients: history of smoking or of other known risk factors (e.g. first degree relative with lung cancer, or exposure to asbestos, radon, uranium) * if a nodule up to 8 mm is partly solid or is ground glass further follow-up is required after 24 months to exclude possible slow growing adenocarcinoma (KATTY) SUBSOLID NODULES Solitary pure ground-glass nodule * nodule size <6 mm - no CT follow-up required * nodule size >=6 mm - follow-up CT at 6-12 months, then every 2 years until 5 years Solitary part-solid nodule * nodule size <6 mm - no CT follow-up required * nodule size >=6 mm - follow-up CT at 3-6 months. If unchanged, and solid component remains <6 mm, then annual follow-up for 5 years Multiple subsolid nodules * nodule size <6 mm - follow-up CT at 3-6 months, consider further follow-up at 2 and 4 years if stable * nodule size >=6 mm - follow-up CT at 3-6 months, subsequent management based on the most suspicious nodule(s) The above report was generated using voice recognition software. It may contain grammatical, syntax or spelling errors. Electronically signed by: Jairon Mendes M.D. 02/05/2017 7:01 AM Dictated Date/Time: 02/05/2017 6:49 AM
[2017-02-05] MEDS: LORAZEPAM 0.5 MG TAB PO PRN (07:46)
[2017-02-05] MEDS: FLECAINIDE ACETATE 100 MG TAB PO SCH ×2 (07:46→21:19)
[2017-02-05] MEDS: MULTIVITAMIN TAB PO SCH (07:46)
[2017-02-05] MEDS: MAGNESIUM OXIDE 400 MG TAB PO SCH (07:47)
[2017-02-05] MEDS: TRIAMTERENE/HCTZ 37.5/25MG CAP PO SCH (07:47)
[2017-02-05] MEDS: INSULIN ASPART 100 UNITS/ML 3 ML PEN SC SCH ×4 (07:48→21:00)
[2017-02-05] MEDS: METOPROLOL TARTRATE 50 MG TAB PO SCH ×2 (07:50→21:19)
[2017-02-05 09:05] LABS: PARTIAL THROMBOPLASTIN RATIO 1.4
[2017-02-05] MEDS: AMOXICILLIN/CLAVULANATE TAB 500 MG TAB PO SCH ×2 (10:42→17:11)
[2017-02-05 16:10] LABS: PARTIAL THROMBOPLASTIN RATIO 1.6
[2017-02-05] MEDS: HEPARIN 25,000 UNIT/500ML D5W 500 ML IV PRN ×3 (16:45→23:17)
[2017-02-05] MEDS ORDERED: LORAZEPAM 0.5 MG TAB PO PRN (21:00)
[2017-02-06] MEDS: AMOXICILLIN/CLAVULANATE TAB 500 MG TAB PO SCH ×2 (02:17→09:25)
[2017-02-06 04:12] VITALS: BP 150/83; PULSE 62; TEMP 36.7; O2SAT 95
[2017-02-06 05:56] LABS: BASO % 0.4 %; BASO ABS # 0.05 K/uL (0-0.2); COMPLETE YES; EOS % 0.9 %; HEMATOCRIT 40.5 % (37-47); IG% 0.3 %; LYMPH % 20.3 %; LYMPH ABS # 2.38 K/uL (1.2-3.4); MEAN CELL VOLUME 94.4 fL (80-100); MEAN CORPUSCULAR HEMOGLOBIN 32.4 pg (25-34); MEAN CORPUSCULAR HGB CONC 34.3 g/dl (32-36); MONO % 8.8 %; NEUT % 69.3 %; PLATELET COUNT 278 K/uL (130-400); RED BLOOD COUNT 4.29 M/uL (4.2-5.4); WHITE BLOOD COUNT 11.75 K/uL (4.8-10.8)
[2017-02-06 06:11] LABS: PARTIAL THROMBOPLASTIN RATIO 2.2
[2017-02-06 07:27] VITALS: BP 133/74; PULSE 57; TEMP 36.9; O2SAT 94
[2017-02-06] MEDS: HEPARIN 25,000 UNIT/500ML D5W 500 ML IV PRN (07:29)
[2017-02-06] MEDS: MAGNESIUM OXIDE 400 MG TAB PO SCH (07:34)
[2017-02-06] MEDS: TRIAMTERENE/HCTZ 37.5/25MG CAP PO SCH (07:34)
[2017-02-06] MEDS: MULTIVITAMIN TAB PO SCH (07:34)
[2017-02-06] MEDS: METOPROLOL TARTRATE 50 MG TAB PO SCH (07:34)
[2017-02-06] MEDS: FLECAINIDE ACETATE 100 MG TAB PO SCH (07:34)
[2017-02-06] MEDS: INSULIN ASPART 100 UNITS/ML 3 ML PEN SC SCH ×2 (07:35→12:49)
[2017-02-06] MEDS: LORAZEPAM 0.5 MG TAB PO PRN (07:40)
--- NOTE | 2017-02-06 09:29 | ORTHOPEDIC CONSULTATION REPORT ---
DATE OF CONSULTATION: 02/06/2017 The patient is a 67-year-old female approximately 5 days status postoperative I&D and wound closure by Dr. Pineda for an extensive wound laceration secondary to a dog bite on her left lower leg. The patient was discharged home and was recently readmitted and found to have a pulmonary embolus. She is now admitted to the medical service for management of her PE. Orthopedics was consulted for evaluation of her ankle. Currently, the patient is lying in bed. She has a Prevena wound VAC on the anterior lateral lower leg. The wound VAC appears to be functioning. There does not appear to be significant erythema around the edges of the wound VAC. The patient states she is having minimal discomfort. She is currently on IV heparin and it looks like she is going to be started on p.o. Xarelto today. I think given the fact that she is 5 days out from her surgery the risk of rebleeding is fairly small. We will keep the wound VAC in place for another day or two, but certainly it should be discontinued on Friday or prior to discharge for evaluation of the wound. She is currently on p.o. Augmentin as well and will continue this. I think if she is sedentary in bed it is a good idea to elevate her leg, but I think it is okay for her to get up and ambulate as well. We will continue to follow along with her during her hospital stay.
[2017-02-06] MEDS ORDERED: RIVAROXABAN TAB 15 MG TAB PO ONE (09:30)
--- NOTE | 2017-02-06 11:09 | Orthopedic Progress Note ---
Orthopedic Progress Note Date of Service Feb 06, 2017. Subjective Post OP Day: 5 Additional Notes: Pt POD #5 s/p I&D, wound closure by Dr Pineda for left lower leg dog bite, readmitted for PE, now ready for d/c Objective Wound Vac d/c'd, mild bloody drainage, skin appears a little tenuous, clean dry dressing applied Date Time Temp Pulse Resp B/P (MAP) Pulse Ox O2 Delivery O2 Flow Rate FiO2 02/06/17 07:46 Room Air 02/06/17 07:27 36.9 57 20 133/74 (93) 94 Room Air 02/06/17 04:12 36.7 62 18 150/83 (105) 95 Room Air 02/06/17 04:00 Room Air 02/06/17 00:00 Room Air 02/05/17 23:03 37.1 55 16 115/62 (79) 93 Room Air 02/05/17 21:08 62 18 144/84 (104) 95 Room Air 02/05/17 20:00 Room Air 02/05/17 19:45 37.0 64 18 155/80 (105) 93 Room Air 02/05/17 16:00 Room Air 02/05/17 14:58 36.8 66 20 115/76 (89) 96 02/05/17 12:00 Room Air 02/05/17 11:16 36.9 56 16 115/77 (90) 93 Room Air Laboratory Results 24 Hours: Test 02/06/17 05:38 White Blood Count 11.75 K/uL Red Blood Count 4.29 M/uL Hemoglobin 13.9 g/dL Hematocrit 40.5 % Mean Corpuscular Volume 94.4 fL Mean Corpuscular Hemoglobin 32.4 pg Mean Corpuscular Hemoglobin Concent 34.3 g/dl Platelet Count 278 K/uL Mean Platelet Volume 11.0 fL Neutrophils (%) (Auto) 69.3 % Lymphocytes (%) (Auto) 20.3 % Monocytes (%) (Auto) 8.8 % Eosinophils (%) (Auto) 0.9 % Basophils (%) (Auto) 0.4 % Neutrophils # (Auto) 8.14 K/uL Lymphocytes # (Auto) 2.38 K/uL Monocytes # (Auto) 1.03 K/uL Eosinophils # (Auto) 0.11 K/uL Basophils # (Auto) 0.05 K/uL Assessment & Plan Assessment: 67 yo female stable s/p recent I&D left lower leg dog bite, now with PE Plan: 1. Med management- now on Xarelto, cont PO Augmentin 2. Discussed wound management with pt and 3. Follow-up with Dr Pineda next week
--- NOTE | 2017-02-06 11:11 | Consultant Recommendations ---
Founder Chairman And Chief Creative Officer Recommendations Date of Service Feb 06, 2017. Founder Chairman And Chief Creative Officer Recommendations Maintain clean dry dressing(discussed with pt and ), pt given supplies to repeat dressing change in 2 days as long as wound not draining through current bandage. Continue oral antibiotics. [place] [facility] [place] 02/11([phone])
[2017-02-06 11:28] VITALS: BP 156/82; PULSE 54; TEMP 36.9; O2SAT 91
[2017-02-06 11:31] VITALS: O2SAT 91
[2017-02-06] MEDS ORDERED: AMOX500T PO (13:28)
--- NOTE | 2017-02-06 13:51 | Discharge Instructions ---
Discharge Instructions Date of Service Feb 06, 2017. Admission Reason for Admission: Pulmonary Embolism Discharge Discharge Diagnosis / Problem: Pulmonary emboli Discharge Goals Goal(s): Decrease discomfort, Diagnostic testing, Therapeutic intervention Activity Recommendations Activity Limitations: resume your previous activity . Instructions / Follow-Up Instructions / Follow-Up Ms. Field, crystal were admitted because you had right lower rib pain and were found to have pulmonary emboli (blood clots in your lungs). You were started on IV anticoagulant called Heparin which we transitioned to oral anticoagulant called Xarelto prior to discharging you. At this time you did not show any signs or symptoms of bleeding and we decided it is safe to discharge you home. We also had the orthopedists come see your dog bite wound at the hospital. Your wound vac was removed and they believed your wound was healing nicely and not bleeding. Please follow the instructions below for further management: -Please continue taking Xarelto 15mg twice a day for 21 days then follow up with your primary care doctor (Dr. Claudy Frank) to get another prescription for Xarelto 20mg once daily -For your dog bite wound: Maintain clean dry dressing (as orthopedist discussed ) and use supplies given to repeat dressing change in 2 days as long as wound not draining through current bandage. Continue oral antibiotics (Augmentin) and call [facility] for appt with Dr Pineda 02/11([phone]) -Continue taking Augmentin 500mg three times a day for 10 days -Continue pain medication Hydrocodone/Acetaminophen as prescribed previously for pain as needed -Continue taking home medications as prescribed -Follow up with primary care doctor in 1-2 days post hospitalization for further management and to discuss follow up imaging on incidental solitary nodule found on lung CTA in about 6-12 months Current Hospital Diet Patient's current hospital diet: Diabetes Type 2 Diet Discharge Diet Recommended Diet: AHA Diet (Heart Healthy), Diabetes Type 2 Diet Procedures Procedures Performed: Venous doppler Chest CTA Removal of wound vac Pending Studies Studies pending at discharge: no Medical Emergencies . Who to Call and When: Medical Emergencies: If at any time you feel your situation is an emergency, please call 911 immediately. . Non-Emergent Contact Non-Emergency issues call your: Primary Care Provider Call Non-Emergent contact if: you have a fever, your pain is not controlled, wound has increased redness . . "Provider Documentation" section prepared by Johnathon Cao. . Barrel Straightener Recommendations Barrel Straightener Recommendations: Maintain clean dry dressing(discussed with pt and ), pt given supplies to repeat dressing change in 2 days as long as wound not draining through current bandage. Continue oral antibiotics. Call [facility] for appt with Dr Pineda 02/11([phone]) VTE Core Measure Inpt VTE Proph given/why not?: Other Anticoagulation
[2017-02-06] MEDS ORDERED: XRL15 PO (14:04)
[2017-02-06 14:29] VITALS: BP 101/69; PULSE 60; TEMP 37.1; O2SAT 93
[2017-02-06 14:43] VITALS: O2SAT 93
--- NOTE | 2017-02-06 15:12 | Discharge Summary ---
Discharge Summary Date of Service Feb 06, 2017. (Johnathon Cao M.D.) Discharge Summary Admission Date: Feb 05, 2017 at 02:27 Discharge Date: Feb 06, 2017 Discharge Disposition: Home Principal Diagnosis: pulmonary emboli - bilateral Problems/Secondary Diagnoses: dog bite wound LLE DM 2 HTN Afib Immunizations: Have You Had Influenza Vaccine: No History of Tetanus Vaccine?: Yes Tetanus Immunization Date: Jun 12, 2001 History of Pneumococcal: No History of Hepatitis B Vaccine: No Procedures: Chest CTA (CHEST FOR PE) ANGIO WITH CT DOSE: 710.17 mGy.cm HISTORY: 67 years-old Female presents with acute right-sided rib pain with history of blood clots. TECHNIQUE: Multiple CTA images of the chest were obtained after the intravenous administration of 93 ml Optiray 320. Coronal and sagittal MIPS were obtained from the axial data set and were submitted for review. A dose lowering technique was utilized adhering to the principles of ALARA. COMPARISON: CT chest 06/15/2006. FINDINGS: CTA: Heart is mildly enlarged. Aortic annular calcifications. Mild mixed plaquing of the thoracic aorta with imaged great vessels patent. No aortic dissection or aneurysm identified. There is satisfactory opacification of the pulmonary arterial tree. Multiple filling defects within the pulmonary arteries are seen involving segmental and subsegmental branches of the right upper, middle and lower lobe with additional filling defects present within the segmental and subsegmental branches of the left upper and lower lobes. No evidence of right heart strain or central pulmonary embolus. CT CHEST: No dominant thyroid nodule. Nonspecific mildly prominent right hilar lymph nodes measure up to 9 mm in short axis. Trace right pleural effusion. Dependent groundglass opacities and linear consolidative densities suggest atelectasis. No large pulmonary infarction identified. There is a focal groundglass opacity, 8 x 6 mm within the apical segment right upper lobe on image 238 of series 4 which appears new from 06/15/2006. 6 mm noncalcified solid pulmonary nodule of the lateral segment right middle lobe on image 131 of series 4 is unchanged from 06/15/2006 compatible with benign etiology. No additional suspicious pulmonary nodules identified. Mild bilateral bronchial wall thickening. Central airways are patent. Imaged upper abdominal structures are unremarkable. 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 Prior right mastectomy. Probable left mastectomy with augmentation. Bones appear intact without suspicious lytic or blastic lesions identified. Multilevel advanced degenerative changes of the spine. IMPRESSION: 1. Multiple segmental and subsegmental pulmonary emboli involving all lobes bilaterally as above. No large central pulmonary emboli, evidence of right heart strain or large pulmonary infarction is identified. 2. Trace right pleural effusion. 3. Cardiomegaly. 4. 8 x 6 mm groundglass nodule of the apical segment right upper lobe, new from 06/15/2006. Follow-up according to the guidelines below recommended. 5. Additional incidental findings as above. Please refer to below summary of Fleischner criteria recommendations for follow-up of incidental CT nodules (Jannet Renee, Guidelines for management of small pulmonary nodules detected on CT scans: A statement from the Fleischner Society, Radiology 237: [phone].) Venous Doppler ULTRASOUND VENOUS DOPPLER LWR EXT BILA CLINICAL HISTORY: pulmonary emboli COMPARISON STUDY: No previous studies for comparison. FINDINGS: Real-time and color flow Doppler imaging were performed. Flow was seen within the femoral, popliteal and calf veins with no intraluminal thrombus demonstrated. The saphenous vein is patent. IMPRESSION: No evidence of lower extremity DVT. Consultations: Orthopedics Wound care (Johnathon Cao M.D.) Medication Reconciliation New Medications: Rivaroxaban (Xarelto) 15 Mg Tab 15 MG PO BID for 21 Days, #42 Continued Medications: Amoxicillin & Pot Clavulanate (Augmentin 500MG) 1 Tab Tab 500 MG PO Q8H for 10 Days, #30 TAB (This prescription has been renewed) Flecainide (Tambocor) 100 Mg Tab 100 MG PO BID, TAB Furosemide (Lasix) 40 Mg Tab 40 MG PO DAILY PRN for SWELLING, TAB Hydrocodone/Acetaminophen 5MG/325MG ([place] 5MG/325MG) Tab 1 TABLET PO Q6H PRN for Pain for 7 Days, TAB PRN PAIN Lorazepam (Ativan) 0.5 Mg Tab 0.5 MG PO TID PRN for Sleep, TAB Magnesium Oxide (Mag-Ox) 400 Mg Tab 400 MG PO QAM, TAB Metformin Hcl (Glucophage) 500 Mg Tab 500 MG PO BID, TAB Metoprolol Tartrate (Lopressor) (Lopressor) 50 Mg Tab 50 MG PO BID, TAB Multivitamin (Multivitamin) Tab 1 TAB PO QAM, TAB Triamterene/Hctz (Maxzide 75MG/50MG) Tab 1 TAB PO QAM, TAB Discontinued Medications: Enoxaparin (Lovenox) 40 Mg/0.4 Ml Inj 40 MG SQ DAILY for 14 Days, SYR Discharge Exam Review of Systems: Constitutional: No fever Respiratory: No shortness of breath Cardiovascular: No chest pain, No palpitations Abdomen: No pain, No nausea, No vomiting Musculoskeletal: + problem reported (R sided rib pain ) Genitourinary - Female: No dysuria Neurologic: + problem reported (denied dizziness/CANNON) Physical Exam: General Appearance: no apparent distress Eyes: normal inspection Neck: supple Respiratory/Chest: lungs clear, normal breath sounds, + pertinent finding ( mastectomy scars) Cardiovascular: regular rate, rhythm, no edema Abdomen / GI: normal bowel sounds, non tender, soft Extremities: + pertinent finding (LLE dog bite wound - improved erythema around dressing, unable to visualize wound due to wound vac dressing) Neurologic/Psychiatric: alert, oriented x 3 (Johnathon Cao M.D.) no chest pain or shortness of breath left lower leg - wound vac removed . Review of Systems: Constitutional: No fever Respiratory: No shortness of breath Cardiovascular: No chest pain Abdomen: No pain Musculoskeletal: No joint pain Physical Exam: General Appearance: no apparent distress Respiratory/Chest: lungs clear, no respiratory distress Cardiovascular: regular rate, rhythm Abdomen / GI: normal bowel sounds, non tender, soft Extremities: + pertinent finding (left leg in dressing. ) Neurologic/Psychiatric: alert, oriented x 3 (Minnie Erickson M.D.) Hospital Course Ms. Field is a 67 yoF with hx of afib and PE in 2004 pulmonary embolus. Because she had an open wound on her left LE, she was started on heparin drip for anticoagulation in the event she had bleeding in which case it could have been stopped. She did not show any signs/symptoms of bleeding prior to discharge and was successfully transitioned to Xarelto. Orthopedics and wound care also evaluated her LLE dog bite wound and removed her wound vac. Bilateral pulmonary emboli - Admitted to telemetry - On standard heparin drip without bolus - Was monitored for S&S of bleeding from wound site during the course of her stay - LE doppler ruled out DVT Wound on left LE - [facility] Ortho consulted - wound vac removed - Continued on Augmentin 500mg TID for 10 days - Per Ortho: Maintain clean dry dressing, given supplies to repeat dressing change in 2 days as long as wound not draining through current bandage. Continue oral antibiotics. Call [facility] for appt with Dr Pineda 02/11([phone]) DMIII - metformin held - insulin ISS with BSG AC HS HTN - continued on lasix 40 mg daily, Metoprolol 50 mg daily, Triamterine/ HCTZ 75/ 50 daily A fib - Continued home flecainide and MagOxide DVT Prophylaxis - heparin drip FULL CODE Total Time Spent: Less than 30 minutes This includes examination of the patient, discharge planning, medication reconciliation, and communication with other providers. (Johnathon Cao M.D.) Resident Physician Supervision Note: I independently interviewed and examined the patient and verified the louis history and physical, reviewed labs and image studies, discussed the case with the resident Dr. Cao and agree with the findings and care plan. Total Time Spent: Greater than 30 minutes (35) (Minnie Erickson M.D.) Discharge Instructions Please refer to the electronic Patient Visit Report (Discharge Instructions) for additional information. (Johnathon Cao M.D.) Additional Copies To Monika Loco C.R.N.P
== END 2017-02-06 14:41 | disposition home or self-care (01) | DRG 176 ==
LOC: C.EDB 23:20 → C.MED 02-05 02:27 → ENRESERV 02-05 02:40
PROVIDERS: ADMIT Student in an Organized Health Care Education/Training Program; ATTEND Family Medicine
DX: I26.99 Other pulmonary embolism without acute cor pulmonale (principal); S81.852A Open bite, left lower leg, initial encounter; E11.9 Type 2 diabetes mellitus without complications; I10 Essential (primary) hypertension; I48.91 Unspecified atrial fibrillation; Z79.01 Long term (current) use of anticoagulants; Z79.84 Long term (current) use of oral hypoglycemic drugs; Z79.899 Other long term (current) drug therapy; Z86.718 Personal history of other venous thrombosis and embolism; W54.0XXA Bitten by dog, initial encounter

== ENCOUNTER 2017-02-08 11:22 | Inpatient (IN) | payer OTHER ==
[~2017-02-08] VITALS: Ht 167.6 cm; Wt 114.0 kg
[~2017-02-08 11:22] MED LIST changes: -ENOX40IN SQ; +XRL15 PO
[2017-02-08 12:38] LABS: BASO % 0.5 %; BASO ABS # 0.06 K/uL (0-0.2); COMPLETE YES; EOS % 0.9 %; HEMATOCRIT 44.1 % (37-47); IG% 0.5 %; LYMPH % 14.7 %; LYMPH ABS # 1.94 K/uL (1.2-3.4); MEAN CELL VOLUME 94.2 fL (80-100); MEAN CORPUSCULAR HEMOGLOBIN 32.3 pg (25-34); MEAN CORPUSCULAR HGB CONC 34.2 g/dl (32-36); MEAN PLATELET VOLUME 11.2 fL (7.4-10.4); MONO % 8.3 %; NEUT % 75.1 %; PLATELET COUNT 397 K/uL (130-400); RED BLOOD COUNT 4.68 M/uL (4.2-5.4); WHITE BLOOD COUNT 13.18 K/uL (4.8-10.8)
[2017-02-08 13:05] LABS: BUN/CREATININE RATIO 26.9 (10-20); CALCIUM 9.6 mg/dl (8.5-10.1); CREATININE 0.95 mg/dl (0.60-1.20); POTASSIUM 4.4 mmol/L (3.5-5.1)
[2017-02-08] MEDS ORDERED: PIPERACILLIN/TAZOBACTAM 4.5 GM/100ML D5W IV STA (13:36)
[2017-02-08] MEDS ORDERED: LINEZOLID / D5W 600 MG in PREMIXED IN D5W 300 ML IV STA (13:36)
[2017-02-08] MEDS ORDERED: POLYETHYLENE (MIRALAX) 17 GM PACK PO PRN (13:45)
[2017-02-08] MEDS ORDERED: ACETAMINOPHEN 325 MG TAB PO PRN (13:45)
[2017-02-08] MEDS ORDERED: FUROSEMIDE 40 MG TAB PO PRN (13:45)
[2017-02-08] MEDS ORDERED: ALUMINUM/MAGNESIUM/SIMETH (MAALOX MAX) 30 ML UDC PO PRN (13:45)
[2017-02-08] MEDS ORDERED: ONDANSETRON INJ 2 MG/ML 2 ML VIAL IV PRN (13:45)
[2017-02-08] MEDS ORDERED: MAGNESIUM HYDROXIDE SUSP 30 ML UDC PO PRN (13:45)
--- NOTE | 2017-02-08 13:59 | History and Physical ---
History & Physical Date & Time of Service: Feb 08, 2017 at 13:54 Chief Complaint: Dog Bite Left Leg Primary Care Physician: Monika Loco C.R.N.P History of Present Illness Source: patient 67 y/o F Hx DM, HTN, PAF. Pt presented following dog bite injury 02/01 and required surgical closure of her wound. She was D/C after surgery and on 02/05 she presented with pleuritic CP and was diagnosed with a PE. She is presently on Xarelto. She presents today as despite compliance with Augmentin following surgery, her wound appears to be infected. There is pain, erythema and exudate at the bite/surgical site. She denies a fever or rigors. Denies current CP or SOB. Past Medical/Surgical History 1) HTN 2) Paroxysmal AF 3) Dog bite 02/01 4) PE - currently on Xarelto - was taking anticoagulation prior 5) DM II 6) Obese Family History No significant family history Social History Smoking Status: Never Smoker Drug Use: none Marital Status: Housing status: lives with family Occupational Status: employed Immunizations History of Influenza Vaccine: No History of Tetanus Vaccine?: Yes Tetanus Immunization Date: Jun 12, 2001 History of Pneumococcal: No History of Hepatitis B Vaccine: No Multi-Drug Resistant Organisms History of MDRO: No Allergies Coded Allergies: No Known Allergies (Unverified , 02/08/17) Home Medications Scheduled Amoxicillin & Pot Clavulanate (Augmentin 500MG), 500 MG PO Q8H Flecainide (Tambocor), 100 MG PO BID Magnesium Oxide (Mag-Ox), 400 MG PO QAM Metformin Hcl (Glucophage), 500 MG PO BID Metoprolol Tartrate (Lopressor) (Lopressor), 50 MG PO BID Multivitamin (Multivitamin), 1 TAB PO QAM Rivaroxaban (Xarelto), 15 MG PO BID Triamterene/Hctz (Maxzide 75MG/50MG), 1 TAB PO QAM Scheduled PRN Furosemide (Lasix), 40 MG PO DAILY PRN for SWELLING Lorazepam (Ativan), 0.5 MG PO TID PRN for Sleep Review of Systems Constitutional: No fever, No chills, No sweats Eyes: No worsening of vision ENT: No hearing loss, No unusual epistaxis, No nasal symptoms Respiratory: No cough, No sputum, No wheezing Cardiovascular: No chest pain, No orthopnea, No PND Abdomen: No pain, No nausea, No vomiting Musculoskeletal: + muscle pain (LLE), No joint pain Genitourinary - Female: No dysuria, No urinary frequency, No urinary urgency Neurologic: No memory loss, No paralysis, No weakness Psychiatric: No depression symptoms Endocrine: No fatigue Hematologic / Lymphatic: No abnormal bleeding/bruising Integumentary: + rash (Wound infection) Allergic / Immunologic: No environmental allergies, No seasonal allergies, No pet sensitivities Physical Exam Vital Signs Date Time Temp Pulse Resp B/P (MAP) Pulse Ox O2 Delivery O2 Flow Rate FiO2 02/08/17 13:35 60 16 154/90 97 02/08/17 11:29 36.9 59 18 138/104 97 Room Air General Appearance: WD/WN, no apparent distress Head: normocephalic Eyes: normal inspection ENT: normal ENT inspection, pharynx normal Neck: supple, no JVD Respiratory/Chest: chest non-tender, lungs clear, normal breath sounds, no respiratory distress, no accessory muscle use Cardiovascular: regular rate, rhythm, no edema, no gallop, no JVD, no murmur, normal peripheral pulses Abdomen/GI: normal bowel sounds, non tender, soft Extremities/Musculoskelatal: + pertinent finding (There is infalmmation, erythema and exudate from wound - there is discoloration which may indicate a degree of necrosis) 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, no motor/sensory deficits, alert, normal mood/affect, normal reflexes, oriented x 3 Skin: + pertinent finding (There is infalmmation, erythema and exudate from wound - there is discoloration which may indicate a degree of necrosis) Diagnostics Laboratory Results Results Past 24 Hours Test 02/08/17 12:15 Range/Units White Blood Count 13.18 4.8-10.8 K/uL Red Blood Count 4.68 4.2-5.4 M/uL Hemoglobin 15.1 12.0-16.0 g/dL Hematocrit 44.1 37-47 % Mean Corpuscular Volume 94.2 80-100 fL Mean Corpuscular Hemoglobin 32.3 25-34 pg Mean Corpuscular Hemoglobin Concent 34.2 32-36 g/dl Platelet Count 397 130-400 K/uL Mean Platelet Volume 11.2 7.4-10.4 fL Neutrophils (%) (Auto) 75.1 % Lymphocytes (%) (Auto) 14.7 % Monocytes (%) (Auto) 8.3 % Eosinophils (%) (Auto) 0.9 % Basophils (%) (Auto) 0.5 % Neutrophils # (Auto) 9.90 1.4-6.5 K/uL Lymphocytes # (Auto) 1.94 1.2-3.4 K/uL Monocytes # (Auto) 1.09 0.11-0.59 K/uL Eosinophils # (Auto) 0.12 0-0.5 K/uL Basophils # (Auto) 0.06 0-0.2 K/uL RDW Standard Deviation 44.7 36.4-46.3 fL RDW Coefficient of Variation 13.0 11.5-14.5 % Immature Granulocyte % (Auto) 0.5 % Immature Granulocyte # (Auto) 0.07 0.00-0.02 K/uL Sodium Level 135 136-145 mmol/L Potassium Level 4.4 3.5-5.1 mmol/L Chloride Level 103 98-107 mmol/L Carbon Dioxide Level 23 21-32 mmol/L Anion Gap 9.0 3-11 mmol/L Blood Urea Nitrogen 26 7-18 mg/dl Creatinine 0.95 0.60-1.20 mg/dl Est Creatinine Clear Calc Drug Dose 71.6 ml/min Estimated GFR () 70.8 Estimated GFR (Non- 61.1 BUN/Creatinine Ratio 26.9 10-20 Random Glucose 105 70-99 mg/dl Calcium Level 9.6 8.5-10.1 mg/dl Microbiology Results 02/08/17 Blood Culture, Received Pending 02/08/17 Blood Culture, Received Pending 02/08/17 Gram Stain, Received Pending 02/08/17 Wound Culture, Received Pending Diagnostic Radiology No DVT LLE 02/05 Impression Assessment and Plan 67 y/o F Hx DM, HTN, PAF. Pt presented following dog bite injury 02/01 and required surgical closure of her wound. She was D/C after surgery and on 02/05 she presented with pleuritic CP and was diagnosed with a PE. She is presently on Xarelto. She presents today as despite compliance with Augmentin following surgery, her wound appears to be infected. There is pain, erythema and exudate at the bite/surgical site. She denies a fever or rigors. Denies current CP or SOB. 1) Wound infection following dog bite and surgical closure - pt is failing outpt Augmentin - provided with Zosyn/Linezolid pending ID eval. 2) PE - remains on Xarelto - may need to hold for surgical debridement at discretion of orthopedist 3) PAF - currently in a sinus rhythm - cont Flecainide 4) DM II - Sliding scale provided 5) HTN - cont current meds Full code - Xarelto prophylaxis Total time for this admit including review of labs, meds, imaging, recent records - discussion with pt and ER attending - 35 min Level of Care Med/Surg Resuscitation Status FULL RESUSCITATION VTE Prophylaxis VTE Risk Assessment Done? Y/N: Yes Risk Level: High Given or contraindicated: Other Anticoagulation
[2017-02-08 14:18] VITALS: Ht 167.6 cm; Wt 114.0 kg
--- NOTE | 2017-02-08 15:43 | EMERGENCY ROOM VISIT NOTE ---
History Report prepared by Santiago: Rajesh Baca Under the Supervision of: Dr. River Beckman M.D. First contact with patient: 11:40 Chief Complaint: WOUND INFECTION Stated Complaint: DOG BITE LEFT LEG History of Present Illness The patient is a 67 year old female who presents to the Emergency Room with complaints of a persistent lower left leg wound infection that began after being bitten by a [place]rainian singleton last week. She says that she was seen here for the bite, and was then seen by orthopedics, and had a wound vac put on. The patient notes that the wound vac was taken off 2 days ago. She states she went to see the [facility] for the first time earlier today, and the patient was told that there was still some infection, and to come here for further treatment. The patient notes that she is on Amoxicillin, and she was on IV antibiotics when she was hospitalized here last week. Per the patient' s , the patient has a history of a blood clot, and is on Xarelto. Pt denies LOC, headache, fevers, chills, diaphoresis, visual changes, neck pain, chest pain, breathing difficulties, nausea, vomiting, abdominal pain, back pain , melena, hematochezia, urinary symptoms, numbness, weakness, lymphadenopathy, or other complaints. Source of History: patient, spouse/significant other Onset: Last week Position: leg (left) Quality: other (wound infection from dog bite) Timing: other (persistent) Note: Associated symptoms: Stitches coming loose from wound. Review of Systems See HPI for pertinent positives and negatives. A total of ten systems were reviewed and were otherwise negative. Past Medical & Surgical Medical Problems: (1) Dog bite (2) Wound infection Family History No significant family history Social History Smoking Status: Never Smoker Drug Use: none Marital Status: Housing Status: lives with significant other Occupation Status: employed Current/Historical Medications Scheduled Amoxicillin & Pot Clavulanate (Augmentin 500MG), 500 MG PO Q8H Flecainide (Tambocor), 100 MG PO BID Magnesium Oxide (Mag-Ox), 400 MG PO QAM Metformin Hcl (Glucophage), 500 MG PO BID Metoprolol Tartrate (Lopressor) (Lopressor), 50 MG PO BID Multivitamin (Multivitamin), 1 TAB PO QAM Rivaroxaban (Xarelto), 15 MG PO BID Triamterene/Hctz (Maxzide 75MG/50MG), 1 TAB PO QAM Scheduled PRN Furosemide (Lasix), 40 MG PO DAILY PRN for SWELLING Lorazepam (Ativan), 0.5 MG PO TID PRN for Sleep Allergies Coded Allergies: No Known Allergies (Unverified , 02/08/17) Physical Exam Vital Signs Date Time Temp Pulse Resp B/P (MAP) Pulse Ox O2 Delivery O2 Flow Rate FiO2 02/08/17 14:55 50 18 150/90 97 Room Air 02/08/17 14:18 Room Air 02/08/17 13:35 60 16 154/90 97 02/08/17 11:29 36.9 59 18 138/104 97 Room Air Physical Exam GENERAL: Awake, alert, well-appearing, in no distress HENT: Normocephalic, atraumatic. Oropharynx unremarkable. EYES: Normal conjunctiva. Sclera non-icteric. NECK: Supple. No nuchal rigidity. FROM. No JVD. RESPIRATORY: Clear to auscultation. CARDIAC: Regular rate, normal rhythm. Extremities warm and well perfused. Pulses equal. ABDOMEN: Soft, non-distended. No tenderness to palpation. No rebound or guarding. No masses. RECTAL: Deferred. MUSCULOSKELETAL: Chest examination reveals no tenderness. The back is symmetrical on inspection without obvious abnormality. There is no CVA tenderness to palpation. No joint edema. LOWER EXTREMITIES: Small amount of cloudy drainage the size of a pea at the inferior lateral aspect of the lower left leg. There is surrounding redness and bruising. NEURO: Normal sensorium. No sensory or motor deficits noted. SKIN: No rash or jaundice noted. Medical Decision & Procedures Laboratory Results 02/08/17 12:15 Red Blood Count 4.68, Mean Corpuscular Volume 94.2, Mean Corpuscular Hemoglobin 32.3, Mean Corpuscular Hemoglobin Concent 34.2, Mean Platelet Volume 11.2, Neutrophils (%) (Auto) 75.1, Lymphocytes (%) (Auto) 14.7, Monocytes (%) (Auto) 8.3, Eosinophils (%) (Auto) 0.9, Basophils (%) (Auto) 0.5, Neutrophils # (Auto) 9.90, Lymphocytes # (Auto) 1.94, Monocytes # (Auto) 1.09, Eosinophils # (Auto) 0.12, Basophils # (Auto) 0.06 02/08/17 12:15 Test 02/08/17 12:15 White Blood Count 13.18 K/uL (4.8-10.8) Red Blood Count 4.68 M/uL (4.2-5.4) Hemoglobin 15.1 g/dL (12.0-16.0) Hematocrit 44.1 % (37-47) Mean Corpuscular Volume 94.2 fL (80-100) Mean Corpuscular Hemoglobin 32.3 pg (25-34) Mean Corpuscular Hemoglobin Concent 34.2 g/dl (32-36) Platelet Count 397 K/uL (130-400) Mean Platelet Volume 11.2 fL (7.4-10.4) Neutrophils (%) (Auto) 75.1 % Lymphocytes (%) (Auto) 14.7 % Monocytes (%) (Auto) 8.3 % Eosinophils (%) (Auto) 0.9 % Basophils (%) (Auto) 0.5 % Neutrophils # (Auto) 9.90 K/uL (1.4-6.5) Lymphocytes # (Auto) 1.94 K/uL (1.2-3.4) Monocytes # (Auto) 1.09 K/uL (0.11-0.59) Eosinophils # (Auto) 0.12 K/uL (0-0.5) Basophils # (Auto) 0.06 K/uL (0-0.2) RDW Standard Deviation 44.7 fL (36.4-46.3) RDW Coefficient of Variation 13.0 % (11.5-14.5) Immature Granulocyte % (Auto) 0.5 % Immature Granulocyte # (Auto) 0.07 K/uL (0.00-0.02) Anion Gap 9.0 mmol/L (3-11) Est Creatinine Clear Calc Drug Dose 71.6 ml/min Estimated GFR () 70.8 Estimated GFR (Non- 61.1 BUN/Creatinine Ratio 26.9 (10-20) Calcium Level 9.6 mg/dl (8.5-10.1) Laboratory results reviewed by me Medications Administered Medications (Trade) Dose Ordered Sig/Justo Route Start Time Stop Time Status Last Admin Dose Admin Piperacillin Sod/ Tazobactam Sod (Zosyn Iv) 4.5 gm NOW STAT IV 02/08/17 13:36 02/08/17 13:38 DC 02/08/17 13:44 4.5 GM Linezolid 600 mg/ Prmx 300 ml @ 300 mls/hr NOW STAT IV 02/08/17 13:36 02/08/17 14:35 DC 02/08/17 14:22 300 MLS/HR ED Course 1149: The patient was evaluated in room A2. A complete history and physical exam was performed. 1333: Upon reexamination, the patient was resting. I discussed the test results and treatment plan with her. She expressed understanding and agreement. The patient will be evaluated for further management. 1335: I discussed the patient with Dr. Giovanna LANDAVERDE manager roofing - he will evaluate the patient for further treatment. Medical Decision Triage Nursing notes reviewed. The patient's presentation and history were concerning for a possible wound infection. Etiologies such as cellulitis, abscess, necrotizing fasciitis, wound dehiscence , seroma, DVT, joint effusion, lymphedema,, as well as others were entertained. Patient was evaluated. There was a very tiny amount of purulent drainage noted from the inferior aspect of the wound. This was cultured. There is some surrounding erythema and warmth. There is no significant streaking or crepitus of the leg. There is no dehiscence. The patient states she has been taking Augmentin. Given the situation broad-spectrum intravenous antibiotic coverage would be warranted as she is not done well as expected on the Augmentin. The patient was given a dose of IV Zosyn and IV linezolid after consultation with internal medicine. The patient does have a leukocytosis on CBC. Gram stain and blood cultures are pending. Medication Reconcilliation Current Medication List: was personally reviewed by me Blood Pressure Screening Patient's blood pressure: Elevated blood pressure Blood pressure disposition: Elevated BP felt to be situational Consults Time Called: 1333 Consulting Physician: Dr. Giovanna LANDAVERDE manager roofing Returned Call: [phone] I discussed the patient with Dr. Giovanna LANDAVERDE manager roofing - he will evaluate the patient for further treatment. Impression Primary Impression: Infected dog bite Additional Impression: Failure of outpatient treatment Scribe Attestation The scribe's documentation has been prepared under my direction and personally reviewed by me in its entirety. I confirm that the note above accurately reflects all work, treatment, procedures, and medical decision making performed by me. Departure Information Dispostion Being Evaluated By Hospitalist Referrals No Doctor, Assigned (PCP) Patient Instructions My [facility] Health Problem Qualifiers
[2017-02-08 16:38] VITALS: BP 146/75; PULSE 59; TEMP 36.4; O2SAT 98
[2017-02-08] MEDS ORDERED: PIPERACILL/TAZOBAC CONSULT ACTIVE PRN (17:15)
[2017-02-08] MEDS ORDERED: PIPERACILL/TAZOBAC IV 3.375 GM in DEXTROSE 5% 100ML 100 ML IV SCH (18:00)
--- NOTE | 2017-02-08 18:27 | Medical Consult ---
Consultation Date of Consultation: Feb 08, 2017. Attending Physician: Benjamin Heredia M.D. Reason for Consultation: Wound infection, possible resistance to Augmentin History of Present Illness 67-year-old female in usual state of health suffered dog bite wound to left lower extremity approximately 1 week ago, seen in the emergency department where wound closure was done, we see emergency department for bleeding, now presents with evidence of worsening infection despite treatment with oral Augmentin. Currently being treated with IV linezolid and Zosyn. Cultures are pending. Tolerating antibiotics without apparent difficulty. Has remained afebrile. Pain now 2/10 in intensity. Past Medical/Surgical History Medical Problems: (1) Bleeding from wound Status: Acute (2) Failure of outpatient treatment Status: Acute (3) Infected dog bite Status: Acute (4) Pulmonary embolism Status: Acute Medical Problems: (1) Dog bite (2) Wound infection Family History No significant family history Social History Smoking Status: Never Smoker Drug Use: none Marital Status: Housing Status: lives with significant other Occupation Status: employed Allergies Coded Allergies: No Known Allergies (Unverified , 02/08/17) Current Inpatient Medications Current Inpatient Medications Medications (Trade) Dose Ordered Sig/Justo Route Start Time Stop Time Status Last Admin Dose Admin Linezolid 600 mg/ Prmx 300 ml @ 300 mls/hr Q12H IV 02/09/17 04:00 02/18/17 03:59 Lactobacillus Acidophilus (Floranex Tab) 4 tab TIDM PO 02/08/17 17:45 03/10/17 17:59 Flecainide Acetate (Tambocor Tab) 100 mg BID PO 02/08/17 21:00 03/10/17 20:59 Furosemide (Lasix Tab) 40 mg DAILY PRN PO 02/08/17 13:45 03/10/17 13:44 Lorazepam (Ativan Tab) 0.5 mg TID PRN PO 02/08/17 13:45 03/10/17 13:44 Magnesium Oxide (Mag-Ox Tab) 400 mg QAM PO 02/09/17 09:00 03/11/17 08:59 Metoprolol Tartrate (Lopressor Tab) 50 mg BID PO 02/08/17 21:00 03/10/17 20:59 Triamterene/HCTZ (Dyazide 37.5/25 Mg Cap) 1 cap QAM PO 02/09/17 09:00 03/11/17 08:59 Acetaminophen (Tylenol Tab) 650 mg Q4H PRN PO 02/08/17 13:45 03/10/17 13:44 Al Hydrox/Mg Hydrox/Simethicone (Maalox Max Susp) 15 ml Q4H PRN PO 02/08/17 13:45 03/10/17 13:44 Magnesium Hydroxide (Milk Of Magnesia Susp) 30 ml Q6H PRN PO 02/08/17 13:45 03/10/17 13:44 Polyethylene (Miralax Powder Packet) 17 gm DAILY PRN PO 02/08/17 13:45 03/10/17 13:44 Zolpidem Tartrate (Ambien Tab) 5 mg HSZ PRN PO 02/08/17 13:45 03/10/17 13:44 Ondansetron HCl (Zofran Inj) 4 mg Q6H PRN IV 02/08/17 13:45 03/10/17 13:44 Piperacillin Sod/ Tazobactam Sod 4.5 gm/Dextrose 120 ml @ 30 mls/hr Q8H IV 02/08/17 20:00 02/18/17 19:59 Piperacillin Sod/ Tazobactam Sod (Consult) 1 ea UD PRN N/A 02/08/17 17:15 03/10/17 17:14 Review of Systems all systems were reviewed and are negative except as per HPI Physical Exam Date Time Temp Pulse Resp B/P (MAP) Pulse Ox O2 Delivery O2 Flow Rate FiO2 02/08/17 16:40 Room Air 02/08/17 16:38 36.4 59 17 146/75 (98) 98 Room Air 02/08/17 14:55 50 18 150/90 97 Room Air 02/08/17 14:18 Room Air 02/08/17 13:35 60 16 154/90 97 02/08/17 11:29 36.9 59 18 138/104 97 Room Air General Appearance: WD/WN, no apparent distress Head: normocephalic, atraumatic Eyes: normal inspection, sclerae normal ENT: normal ENT inspection, pharynx normal Neck: supple, no adenopathy, thyroid normal, trachea midline Respiratory/Chest: chest non-tender, lungs clear, normal breath sounds, no respiratory distress Cardiovascular: regular rate, rhythm, no gallop, no murmur Abdomen/GI: normal bowel sounds, non tender, soft, no organomegaly Back: normal inspection, no CVA tenderness Extremities/Musculoskelatal: normal inspection, normal capillary refill Neurologic/Psych: alert, normal mood/affect, oriented x 3 Skin: normal color, no rash, + pertinent finding ( Open wound left lower extremity laterally, minimal surrounding erythema, no purulence) Lymphatic: no adenopathy Laboratory Results Date/Time Source Procedure Growth Status 02/08/17 12:15 Blood Blood Culture Pending Received 02/08/17 12:10 Blood Blood Culture Pending Received 02/08/17 12:05 Drainage - Surface Leg Lower Left Gram Stain Pending Received 02/08/17 12:05 Drainage - Surface Leg Lower Left Wound Culture Pending Received Last 24 Hours Test 02/08/17 12:15 02/08/17 17:38 White Blood Count 13.18 K/uL Red Blood Count 4.68 M/uL Hemoglobin 15.1 g/dL Hematocrit 44.1 % Mean Corpuscular Volume 94.2 fL Mean Corpuscular Hemoglobin 32.3 pg Mean Corpuscular Hemoglobin Concent 34.2 g/dl Platelet Count 397 K/uL Mean Platelet Volume 11.2 fL Neutrophils (%) (Auto) 75.1 % Lymphocytes (%) (Auto) 14.7 % Monocytes (%) (Auto) 8.3 % Eosinophils (%) (Auto) 0.9 % Basophils (%) (Auto) 0.5 % Neutrophils # (Auto) 9.90 K/uL Lymphocytes # (Auto) 1.94 K/uL Monocytes # (Auto) 1.09 K/uL Eosinophils # (Auto) 0.12 K/uL Basophils # (Auto) 0.06 K/uL RDW Standard Deviation 44.7 fL RDW Coefficient of Variation 13.0 % Immature Granulocyte % (Auto) 0.5 % Immature Granulocyte # (Auto) 0.07 K/uL Sodium Level 135 mmol/L Potassium Level 4.4 mmol/L Chloride Level 103 mmol/L Carbon Dioxide Level 23 mmol/L Anion Gap 9.0 mmol/L Blood Urea Nitrogen 26 mg/dl Creatinine 0.95 mg/dl Est Creatinine Clear Calc Drug Dose 71.6 ml/min Estimated GFR () 70.8 Estimated GFR (Non- 61.1 BUN/Creatinine Ratio 26.9 Random Glucose 105 mg/dl Calcium Level 9.6 mg/dl Bedside Glucose 107 mg/dl Assessment & Plan 67-year-old female with complicated dog bite left lower leg, status post surgical debridement closure, now with evidence of surgical site infection. Likely is pathogens include Staph coccus, Streptococcus, and g negatives including pasteurella and Captnocytophagia. have substitute daptomycin for vancomycin, and will continue Zosyn, pending final culture results and sensitivities. Length of antibiotics will be determined by clinical response. Will follow.
[2017-02-08] MEDS: LACTOBACILLUS ACIDOPHILUS (FLORANEX) TAB PO SCH (19:04)
[2017-02-08 20:00] VITALS: O2SAT 98
[2017-02-08] MEDS: DAPTOmycin IV 500 MG in SODIUM CHLORIDE 0.9% 50ML 50 ML IV SCH (20:15)
[2017-02-08] MEDS ORDERED: PNEUMOCOCCAL POLYSACCHARIDES 25 MCG/0.5 ML VIAL/SYR IM. ONE (20:15)
[2017-02-08] MEDS: PIPERACILL/TAZOBAC IV 4.5 GM in DEXTROSE 5% 100ML IV SCH (20:15)
[2017-02-08] MEDS ORDERED: PNEUMOCOCCAL ADMINISTRATION CHARGE ONE (20:15)
[2017-02-08] MEDS ORDERED: RIVAROXABAN TAB 15 MG TAB PO SCH (21:00)
[2017-02-08] MEDS: METOPROLOL TARTRATE 50 MG TAB PO SCH (21:00)
[2017-02-08] MEDS ORDERED: NURSING VERBAL MED ORDER ONE ×2 (21:15→23:30)
[2017-02-08] MEDS ORDERED: FLUCONAZOLE 50 MG TAB PO ONE (21:15)
[2017-02-08] MEDS: FLECAINIDE ACETATE 100 MG TAB PO SCH (21:22)
[2017-02-08 22:50] VITALS: BP 121/77; PULSE 52; TEMP 36.7; O2SAT 96
[2017-02-08] MEDS: LORAZEPAM 0.5 MG TAB PO PRN (23:40)
[2017-02-08] MEDS ORDERED: GLUCAGON FOR INJ 1 MG VIAL SQ PRN (23:45)
[2017-02-08] MEDS ORDERED: DEXTROSE 50% 50 ML SYR IV PRN (23:45)
[2017-02-08] MEDS ORDERED: GLUCOSE 10 TABS/TUBE PO PRN (23:45)
[2017-02-08] MEDS ORDERED: GLUCOSE 40% GEL 15 GM TUBE PO PRN (23:45)
[2017-02-09] MEDS ORDERED: NURSING VERBAL MED ORDER ONE (01:15)
[2017-02-09] MEDS ORDERED: LINEZOLID / D5W 600 MG in PREMIXED IN D5W 300 ML IV SCH (04:00)
[2017-02-09] MEDS: PIPERACILL/TAZOBAC IV 4.5 GM in DEXTROSE 5% 100ML IV SCH ×3 (04:05→20:31)
[2017-02-09] MEDS: INSULIN ASPART 100 UNITS/ML 3 ML PEN SC SCH ×3 (06:00→17:31)
[2017-02-09 06:48] VITALS: BP 126/81; PULSE 67; TEMP 36.6; O2SAT 95
[2017-02-09 07:34] LABS: HEMATOCRIT 41.7 % (37-47); MEAN CELL VOLUME 94.1 fL (80-100); MEAN CORPUSCULAR HEMOGLOBIN 32.5 pg (25-34); MEAN CORPUSCULAR HGB CONC 34.5 g/dl (32-36); MEAN PLATELET VOLUME 11.2 fL (7.4-10.4); PLATELET COUNT 348 K/uL (130-400); RED BLOOD COUNT 4.43 M/uL (4.2-5.4); WHITE BLOOD COUNT 13.68 K/uL (4.8-10.8)
[2017-02-09] MEDS ORDERED: INSULIN ASPART 100 UNITS/ML 3 ML PEN SC SCH (08:00)
[2017-02-09 08:12] LABS: BUN/CREATININE RATIO 24.7 (10-20); CALCIUM 8.9 mg/dl (8.5-10.1); CREATININE 1.11 mg/dl (0.60-1.20); POTASSIUM 3.6 mmol/L (3.5-5.1)
[2017-02-09] MEDS: LACTOBACILLUS ACIDOPHILUS (FLORANEX) TAB PO SCH ×3 (08:30→17:24)
[2017-02-09] MEDS: METOPROLOL TARTRATE 50 MG TAB PO SCH ×2 (09:27→20:32)
[2017-02-09] MEDS: MAGNESIUM OXIDE 400 MG TAB PO SCH (09:27)
[2017-02-09] MEDS: TRIAMTERENE/HCTZ 37.5/25MG CAP PO SCH (09:27)
[2017-02-09] MEDS: FLECAINIDE ACETATE 100 MG TAB PO SCH ×2 (09:27→20:32)
--- NOTE | 2017-02-09 10:23 | Orthopedic Consultation ---
Orthopedic Consultation Date of Consultation: Feb 09, 2017. Attending Physician: Benjamin Heredia M.D. Reason for Consultation: Wound left leg History of Present Illness Patient is a 67-year-old female who approximately a week ago sustained a rather severe dog bite to the distal lateral aspect of the left leg. Fair amount of tissue loss was present secondary to the bite. She was washed out and primarily closed however the closure was tight at the time of surgery per Dr. Pineda. She even placed on Lovenox postoperatively. She presented to the emergency room with increasing chest pain. Imaging is positive for PE. She is on Cymbalta. The wound had a Prevena wound VAC on top of the. However the skin a portion of it has become rather dusky and becoming necrotic. Past Medical/Surgical History Medical Problems: (1) Bleeding from wound Status: Acute (2) Failure of outpatient treatment Status: Acute (3) Infected dog bite Status: Acute (4) Pulmonary embolism Status: Acute Family History No significant family history Social History Smoking Status: Never Smoker Drug Use: none Marital Status: Housing Status: lives with significant other Occupation Status: employed Allergies Coded Allergies: No Known Allergies (Unverified , 02/08/17) Home Medications Scheduled Amoxicillin & Pot Clavulanate (Augmentin 500MG), 500 MG PO Q8H Flecainide (Tambocor), 100 MG PO BID Magnesium Oxide (Mag-Ox), 400 MG PO QAM Metformin Hcl (Glucophage), 500 MG PO BID Metoprolol Tartrate (Lopressor) (Lopressor), 50 MG PO BID Multivitamin (Multivitamin), 1 TAB PO QAM Rivaroxaban (Xarelto), 15 MG PO BID Triamterene/Hctz (Maxzide 75MG/50MG), 1 TAB PO QAM Scheduled PRN Furosemide (Lasix), 40 MG PO DAILY PRN for SWELLING Lorazepam (Ativan), 0.5 MG PO TID PRN for Sleep Current Inpatient Medications Current Inpatient Medications Medications (Trade) Dose Ordered Sig/Justo Route Start Time Stop Time Status Last Admin Dose Admin Lactobacillus Acidophilus (Floranex Tab) 4 tab TIDM PO 02/08/17 17:45 03/10/17 17:59 02/08/17 19:04 4 TAB Flecainide Acetate (Tambocor Tab) 100 mg BID PO 02/08/17 21:00 03/10/17 20:59 02/09/17 09:27 100 MG Furosemide (Lasix Tab) 40 mg DAILY PRN PO 02/08/17 13:45 03/10/17 13:44 Lorazepam (Ativan Tab) 0.5 mg TID PRN PO 02/08/17 13:45 03/10/17 13:44 02/08/17 23:40 0.5 MG Magnesium Oxide (Mag-Ox Tab) 400 mg QAM PO 02/09/17 09:00 03/11/17 08:59 02/09/17 09:27 400 MG Metoprolol Tartrate (Lopressor Tab) 50 mg BID PO 02/08/17 21:00 03/10/17 20:59 02/09/17 09:27 50 MG Triamterene/HCTZ (Dyazide 37.5/25 Mg Cap) 1 cap QAM PO 02/09/17 09:00 03/11/17 08:59 02/09/17 09:27 1 CAP Acetaminophen (Tylenol Tab) 650 mg Q4H PRN PO 02/08/17 13:45 03/10/17 13:44 02/08/17 21:18 650 MG Al Hydrox/Mg Hydrox/Simethicone (Maalox Max Susp) 15 ml Q4H PRN PO 02/08/17 13:45 03/10/17 13:44 Magnesium Hydroxide (Milk Of Magnesia Susp) 30 ml Q6H PRN PO 02/08/17 13:45 03/10/17 13:44 Polyethylene (Miralax Powder Packet) 17 gm DAILY PRN PO 02/08/17 13:45 03/10/17 13:44 Zolpidem Tartrate (Ambien Tab) 5 mg HSZ PRN PO 02/08/17 13:45 03/10/17 13:44 Ondansetron HCl (Zofran Inj) 4 mg Q6H PRN IV 02/08/17 13:45 03/10/17 13:44 Piperacillin Sod/ Tazobactam Sod 4.5 gm/Dextrose 120 ml @ 30 mls/hr Q8H IV 02/08/17 20:00 02/18/17 19:59 02/09/17 04:05 30 MLS/HR Piperacillin Sod/ Tazobactam Sod (Consult) 1 ea UD PRN N/A 02/08/17 17:15 03/10/17 17:14 Daptomycin 500 mg/ Sodium Chloride 60 ml @ 100 mls/hr Q24H IV 02/08/17 20:00 02/18/17 19:59 02/08/17 20:15 100 MLS/HR Glucose (Glucose 40% Gel) 15-30 GRAMS 15 GRAMS... UD PRN PO 02/08/17 23:45 03/10/17 23:44 Glucose (Glucose Chew Tab) 4-8 Tablets 4 Tabl... UD PRN PO 02/08/17 23:45 03/10/17 23:44 Dextrose (Dextrose 50% 50ML Syringe) 25-50ML OF 50% DW IV FOR... UD PRN IV 02/08/17 23:45 03/10/17 23:44 Glucagon (Glucagon Inj) 1 mg UD PRN SQ 02/08/17 23:45 03/10/17 23:44 Insulin Aspart (novoLOG ASPART) SLIDING SCALE Q6 SC 02/09/17 06:00 03/11/17 05:59 Physical Exam Date Time Temp Pulse Resp B/P (MAP) Pulse Ox O2 Delivery O2 Flow Rate FiO2 02/09/17 07:50 Room Air 02/09/17 06:48 36.6 67 18 126/81 (96) 95 Room Air 02/08/17 23:43 Room Air 02/08/17 22:50 36.7 52 18 121/77 (92) 96 Room Air 02/08/17 20:00 98 Room Air 02/08/17 16:40 Room Air 02/08/17 16:38 36.4 59 17 146/75 (98) 98 Room Air 02/08/17 14:55 50 18 150/90 97 Room Air 02/08/17 14:18 Room Air 02/08/17 13:35 60 16 154/90 97 02/08/17 11:29 36.9 59 18 138/104 97 Room Air Resurrection: Light touch sensation and motor function is intact distally. No pain cath. Negative Homans. The wound is over the distal lateral aspect of the leg. The skin proximal to the wound looks good the midline portion looks like it is healing well and was closed with suture. The more lateral aspect is becoming demarcated and skin is necrotic. There is some questionable for diabetes material in the far lateral aspect. No gross fluctuance is appreciated. There is some yellowish material on the skin edges the most lateral aspect. The necrotic area measured about 10 cm in length by about 3 cm in width General Appearance: WD/WN Head: normocephalic Eyes: normal inspection Respiratory/Chest: chest non-tender Cardiovascular: regular rate, rhythm Laboratory Results Last 24 Hours Test 02/08/17 12:15 02/08/17 17:38 02/08/17 20:56 02/09/17 05:51 White Blood Count 13.18 K/uL Red Blood Count 4.68 M/uL Hemoglobin 15.1 g/dL Hematocrit 44.1 % Mean Corpuscular Volume 94.2 fL Mean Corpuscular Hemoglobin 32.3 pg Mean Corpuscular Hemoglobin Concent 34.2 g/dl Platelet Count 397 K/uL Mean Platelet Volume 11.2 fL Neutrophils (%) (Auto) 75.1 % Lymphocytes (%) (Auto) 14.7 % Monocytes (%) (Auto) 8.3 % Eosinophils (%) (Auto) 0.9 % Basophils (%) (Auto) 0.5 % Neutrophils # (Auto) 9.90 K/uL Lymphocytes # (Auto) 1.94 K/uL Monocytes # (Auto) 1.09 K/uL Eosinophils # (Auto) 0.12 K/uL Basophils # (Auto) 0.06 K/uL RDW Standard Deviation 44.7 fL RDW Coefficient of Variation 13.0 % Immature Granulocyte % (Auto) 0.5 % Immature Granulocyte # (Auto) 0.07 K/uL Sodium Level 135 mmol/L Potassium Level 4.4 mmol/L Chloride Level 103 mmol/L Carbon Dioxide Level 23 mmol/L Anion Gap 9.0 mmol/L Blood Urea Nitrogen 26 mg/dl Creatinine 0.95 mg/dl Est Creatinine Clear Calc Drug Dose 71.6 ml/min Estimated GFR () 70.8 Estimated GFR (Non- 61.1 BUN/Creatinine Ratio 26.9 Random Glucose 105 mg/dl Calcium Level 9.6 mg/dl Bedside Glucose 107 mg/dl 121 mg/dl 114 mg/dl Test 02/09/17 07:17 02/09/17 07:53 White Blood Count 13.68 K/uL Red Blood Count 4.43 M/uL Hemoglobin 14.4 g/dL Hematocrit 41.7 % Mean Corpuscular Volume 94.1 fL Mean Corpuscular Hemoglobin 32.5 pg Mean Corpuscular Hemoglobin Concent 34.5 g/dl RDW Standard Deviation 45.2 fL RDW Coefficient of Variation 13.1 % Platelet Count 348 K/uL Mean Platelet Volume 11.2 fL Sodium Level 136 mmol/L Potassium Level 3.6 mmol/L Chloride Level 101 mmol/L Carbon Dioxide Level 25 mmol/L Anion Gap 11.0 mmol/L Blood Urea Nitrogen 27 mg/dl Creatinine 1.11 mg/dl Est Creatinine Clear Calc Drug Dose 61.3 ml/min Estimated GFR () 58.7 Estimated GFR (Non- 50.6 BUN/Creatinine Ratio 24.7 Random Glucose 151 mg/dl Calcium Level 8.9 mg/dl Bedside Glucose 147 mg/dl Assessment & Plan Right leg wound status post dog bite with skin necrosis I discussed the case with Dr. Narvaez. She evaluated the wound. Recommendation is for removal of her sutures debridement of the necrotic area washout and placement of a wound VAC. We will then plan on consult in the wound care clinic for continued dressing changes and VAC changes. She will then follow the patient through the wound care clinic and if she ends up needing skin grafting she can reschedule at a later date once she has some granulation tissue. Plan will be I&D of the wound and VAC placement.
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
[2017-02-09] MEDS ORDERED: LIDOCAINE HCL 2% 2 ML VIAL (20MG/ML) ONE (14:18)
[2017-02-09] MEDS ORDERED: MIDAZOLAM HCL 1 MG/ML 2ML VIAL ONE (14:18)
[2017-02-09] MEDS ORDERED: PROPOFOL IV EMULSION 10 MG/ML 20 ML VIAL IV ONE ×3 (14:18→15:23)
[2017-02-09] MEDS ORDERED: FENTANYL CITRATE INJ 50 MCG/1 ML 2 ML VIAL ONE (14:18)
[2017-02-09] MEDS ORDERED: BUPIVACAINE 0.5 % 5 MG/1 ML MPF 30ML VIAL ONE (14:21)
[2017-02-09] MEDS ORDERED: BACITRACIN 50000 UNIT VIAL ONE ×2 (14:21→15:31)
[2017-02-09] MEDS ORDERED: KETAMINE HCL INJ 50 MG/ML 10 ML VIAL ONE (14:46)
[2017-02-09] MEDS ORDERED: BUPIVACAINE/EPINEPHRINE 0.5% MPF 1:200,000 30 ML VIAL ONE (15:05)
[2017-02-09] MEDS ORDERED: BUPIVACAINE/EPINEPHRINE 0.5% MPF 1:200,000 30 ML VIAL INJ ONE (15:47)
[2017-02-09] MEDS ORDERED: PROMETHAZINE HCL INJ 12.5 MG in SODIUM CHLORIDE 0.9% 50ML 50 ML IV PRN (16:15)
[2017-02-09] MEDS ORDERED: NALOXONE HCL 0.4 MG/1 ML VIAL/CARP IV PRN (16:15)
[2017-02-09] MEDS ORDERED: ONDANSETRON INJ 2 MG/ML 2 ML VIAL IV PRN ×2 (16:15→16:30)
[2017-02-09] MEDS ORDERED: EpHEDrine SULFATE INJ 50 MG/ML AMP IV PRN (16:15)
[2017-02-09] MEDS ORDERED: FLUMAZENIL 0.1 MG/1 ML 10 ML VIAL IV PRN (16:15)
[2017-02-09] MEDS ORDERED: LABETALOL HCL IV 5 MG/ML 20ML IV PRN (16:15)
[2017-02-09] MEDS ORDERED: ATROPINE SULFATE 0.1 MG/ML 5ML SYR IV PRN (16:15)
[2017-02-09] MEDS ORDERED: FENTANYL CITRATE INJ 50 MCG/1 ML 2 ML VIAL IV PRN (16:15)
--- NOTE | 2017-02-09 16:26 | Anesthesiology Progress Note ---
Anesthesia Post Op Note Date & Time Feb 09, 2017 at 16:25 Vital Signs Pain Intensity: 0 Vital Signs Past 12 Hours Date Time Temp Pulse Resp B/P (MAP) Pulse Ox O2 Delivery O2 Flow Rate FiO2 02/09/17 16:15 57 18 133/68 94 Room Air 02/09/17 16:05 36.9 59 20 121/69 95 Room Air 02/09/17 07:50 Room Air 02/09/17 06:48 36.6 67 18 126/81 (96) 95 Room Air Notes Mental Status: alert / awake / arousable, participated in evaluation Pt Amnestic to Procedure: Yes Nausea / Vomiting: adequately controlled Pain: adequately controlled Airway Patency, RR, SpO2: stable & adequate BP & HR: stable & adequate Hydration State: stable & adequate Anesthetic Complications: no major complications apparent
[2017-02-09] MEDS ORDERED: OXYCODONE HCL IR 5 MG TAB (IMMEDIATE RELEASE) PO PRN (16:30)
[2017-02-09] MEDS ORDERED: ALUMINUM/MAGNESIUM/SIMETH (MAALOX MAX) 30 ML UDC PO PRN (16:30)
[2017-02-09] MEDS ORDERED: MoRPHine SULFATE 2 MG/ML CARP IV PRN (16:30)
[2017-02-09] MEDS ORDERED: ZOLPIDEM TARTRATE 5 MG TAB PO PRN (16:30)
--- NOTE | 2017-02-09 16:38 | [facility] Operative Report ---
Operative Report Operative Date Feb 09, 2017. Pre-Operative Diagnosis Left Leg Wound Status Post Dog Bite with skin necrosis Post-Operative Diagnosis Same as preoperative Procedure(s) Performed Irrigation and Debridement left leg, Application of Wound Vac, Left Leg Surgeon Dr. Marcel Faye File Keeper Surgeon(s) None per surgeon Estimated Blood Loss 20ML Findings Significant revision of skin necrosis along the distal aspect of the wound. Proximal aspect the vast majority appeared healthy. Specimens CULTURE: 1.) Left Leg Wound Drains none Anesthesia sedation Complication(s) None Disposition Recovery Room / PACU Indications 67-year-old female who had sustained a dog bite to left leg. She had a fair amount of soft tissue loss at the time of initial injury. She was treated with irrigation and debridement and primary wound closure. She had a PREVENA wound VAC in place. She presented back to the hospital for treatment of a PE. The wound has has significantly necrosis along the distal aspect. She presents for wound irrigation and debridement and placement of a wound VAC Description of Procedure Risks benefits and alternatives of surgery including but not limited to infection DVT pain stiffness need for surgery damage to blood vessels damage to nerves or risks of anesthesia were discussed with the patient and she wished to proceed. Patient was identified in the laterality was confirmed and marked. A well-padded tourniquet was applied but was not used during the case. Given her history of PE the surgery was done under local with sedation. The right lower extremity was prepped and draped in usual standard manner with a combination of ChloraPrep throughout the elbow area and Betadine over the open wound. I injected local anesthetic around the wound with a combination of plain and epinephrine Marcaine. I removed all of her previous sutures. I then performed a thorough debridement sharply down to the level of fat. There was a region that measured approximately 5 cm x 3 cm that was necrotic. There was a very nice alignment of demarcation that I was able to follow excised back to good healing wound edges. The more posterior aspect of the wound had some questionable material for possible starting of an infection. This was sharply excised as well. There is a region centrally that had some fat necrosis and sequential material and this was cultured. The more anterior aspect I simply freshened the skin edges. I then thoroughly irrigated the wound with a total 9 L of saline with pulse irrigation. I then placed a wound VAC onto the limb. We thoroughly dried the region placed a layer of plastic over the wound cut out the section with a wound was and then cut the sponge to size. Then laid over another layer of plastic. I think cut into the plastic over the sponge and placed the suction onto this. I placed an additional Tegaderm posteriorly to ensure that we were well sealed. The VAC was then turned on and we had good suction. No leaks. A sterile dressing was applied. The patient tolerated the procedure well. She was transferred to the PACU in stable condition without apparent complication. I attest to the content of the Intraoperative Record and any orders documented therein. Any exceptions are noted below.
[2017-02-09] MEDS: POTASSIUM CHLORIDE INJ 10 MEQ in SODIUM CHLORIDE 0.9% 1000ML 1,000 ML IV SCH (17:00)
[2017-02-09 17:14] VITALS: BP 126/70; PULSE 55; TEMP 36.6; O2SAT 96
[2017-02-09] MEDS: DAPTOmycin IV 500 MG in SODIUM CHLORIDE 0.9% 50ML 50 ML IV SCH (20:31)
[2017-02-09] MEDS: ACETAMINOPHEN 500 MG TAB PO SCH (20:32)
[2017-02-09] MEDS: LORAZEPAM 0.5 MG TAB PO PRN (20:37)
[2017-02-09 22:40] VITALS: BP 132/75; PULSE 70; TEMP 36.6; O2SAT 96
[2017-02-09 23:10] VITALS: O2SAT 96
[2017-02-10] VITALS (8 sets, daily range): BP systolic 108–139; BP diastolic 69–86; PULSE 52–62; TEMP 36.4–37; O2SAT 94–97
[2017-02-10] MEDS ORDERED: NURSING VERBAL MED ORDER ONE (04:15)
[2017-02-10] MEDS: POTASSIUM CHLORIDE INJ 10 MEQ in SODIUM CHLORIDE 0.9% 1000ML 1,000 ML IV SCH (04:51)
[2017-02-10] MEDS: ACETAMINOPHEN 500 MG TAB PO SCH ×3 (05:56→21:22)
[2017-02-10 06:32] LABS: BASO % 0.4 %; BASO ABS # 0.05 K/uL (0-0.2); COMPLETE YES; EOS % 0.6 %; IG% 0.7 %; LYMPH % 15.8 %; LYMPH ABS # 2.13 K/uL (1.2-3.4); MEAN CELL VOLUME 92.4 fL (80-100); MEAN CORPUSCULAR HEMOGLOBIN 32.3 pg (25-34); MEAN PLATELET VOLUME 11.6 fL (7.4-10.4); MONO % 9.3 %; NEUT % 73.2 %; PLATELET COUNT 334 K/uL (130-400); RED BLOOD COUNT 4.33 M/uL (4.2-5.4); WHITE BLOOD COUNT 13.51 K/uL (4.8-10.8)
[2017-02-10 07:00] LABS: ALB/GLOB RATIO 0.6 (0.9-2); BUN/CREATININE RATIO 21.5 (10-20); CALCIUM 8.5 mg/dl (8.5-10.1); CREATININE 1.05 mg/dl (0.60-1.20); MAGNESIUM 2.4 mg/dl (1.8-2.4)
[2017-02-10 07:01] LABS: POTASSIUM 4.5 mmol/L (3.5-5.1)
--- NOTE | 2017-02-10 07:19 | Orthopedic Progress Note ---
Orthopedic Progress Note Date of Service Feb 10, 2017. Subjective Post OP Day: 1 Reports: feeling well, pain controlled w PO medications, Denies: complaints, chest pain, SOB, nausea / vomiting, light headedness, calf pain Additional Notes: Patient is complaining of a rash today. She states it is all over her body. She did use the hospital soap to wash herself. She denies any allergies to the medications she is currently taking. Objective calves soft nontender, N/V intact, capillary refill less than 2 sec., dressing C /D/I, A&O x3, toes mobile, hemovac drainage Diffuse papule rash over upper thighs, abdomen, bilateral triceps, and diffusely over the back. No areas of confluence or Chucho tree sign. Patient denies any itchiness at the time of exam. Was given Benadryl and states the rash is still present. Date Time Temp Pulse Resp B/P (MAP) Pulse Ox O2 Delivery O2 Flow Rate FiO2 02/10/17 03:40 36.8 58 18 135/86 (102) 95 Room Air 02/09/17 23:10 96 Room Air 02/09/17 22:40 36.6 70 18 132/75 (94) 96 Room Air 02/09/17 19:35 Room Air 02/09/17 18:03 Room Air 02/09/17 17:14 36.6 55 17 126/70 (88) 96 Room Air 02/09/17 16:15 57 18 133/68 94 Room Air 02/09/17 16:05 36.9 59 20 121/69 95 Room Air 02/09/17 07:50 Room Air Laboratory Results 24 Hours: Test 02/09/17 07:17 02/10/17 06:12 Hematocrit 41.7 % 40.0 % Hemoglobin 14.4 g/dL 14.0 g/dL White Blood Count 13.51 K/uL Red Blood Count 4.33 M/uL Mean Corpuscular Volume 92.4 fL Mean Corpuscular Hemoglobin 32.3 pg Mean Corpuscular Hemoglobin Concent 35.0 g/dl Platelet Count 334 K/uL Mean Platelet Volume 11.6 fL Neutrophils (%) (Auto) 73.2 % Lymphocytes (%) (Auto) 15.8 % Monocytes (%) (Auto) 9.3 % Eosinophils (%) (Auto) 0.6 % Basophils (%) (Auto) 0.4 % Neutrophils # (Auto) 9.91 K/uL Lymphocytes # (Auto) 2.13 K/uL Monocytes # (Auto) 1.25 K/uL Eosinophils # (Auto) 0.08 K/uL Basophils # (Auto) 0.05 K/uL Assessment & Plan Assessment: POD #1 Left lower leg I&D and wound vac placement. Plan: DVT - SCD, TENS Cultures - Deep cultures are pending at the moment Wound vac in place Diffuse rash over upper thigh, abdomen, triceps, and back - could be contact dermatitis vs. pityriasis rosea as she had tried new soaps and linens were changed. Inhouse Planning Pain Management: Morphine, PO Tylenol DVT Prophylaxis: TEDs, SCDs, Heparin Drip Discharge Planning Discharge Planning: uncertain
[2017-02-10] MEDS: INSULIN ASPART 100 UNITS/ML 3 ML PEN SC SCH ×4 (08:00→20:48)
[2017-02-10 08:12] LABS: BASO % 0.3 %; BASO ABS # 0.04 K/uL (0-0.2); EOS % 0.6 %; HEMATOCRIT 40.7 % (37-47); IG% 0.4 %; LYMPH % 19.1 %; LYMPH ABS # 2.33 K/uL (1.2-3.4); MEAN CELL VOLUME 93.3 fL (80-100); MEAN CORPUSCULAR HEMOGLOBIN 32.1 pg (25-34); NEUT % 71.6 %; PLATELET COUNT 407 K/uL (130-400); RED BLOOD COUNT 4.36 M/uL (4.2-5.4); WHITE BLOOD COUNT 12.23 K/uL (4.8-10.8)
[2017-02-10 08:14] LABS: COMPLETE YES; MEAN CORPUSCULAR HGB CONC 34.4 g/dl (32-36)
[2017-02-10 08:22] LABS: PARTIAL THROMBOPLASTIN RATIO 1.2; PROTHROMBIN TIME (PATIENT) 10.9 SECONDS (9.0-12.0)
[2017-02-10] MEDS: TRIAMTERENE/HCTZ 37.5/25MG CAP PO SCH (08:23)
[2017-02-10] MEDS: FLECAINIDE ACETATE 100 MG TAB PO SCH ×2 (08:24→20:55)
[2017-02-10] MEDS: MAGNESIUM OXIDE 400 MG TAB PO SCH (08:24)
[2017-02-10] MEDS: METOPROLOL TARTRATE 50 MG TAB PO SCH ×2 (08:24→20:54)
[2017-02-10] MEDS: LACTOBACILLUS ACIDOPHILUS (FLORANEX) TAB PO SCH ×3 (08:24→17:47)
[2017-02-10] MEDS: MULTIVITAMIN TAB PO SCH (08:25)
--- NOTE | 2017-02-10 10:54 | Progress Note ---
Subjective Date of Service: Feb 10, 2017. Subjective Pt evaluation today including: conversation w/ patient, conversation w/ family , physical exam 67 yo female who is here after being bitten by a dog while riding a bike. Patient had a Left lower leg I&D and wound vac placement by ortho team. Patient reports doing well, but has this new generalized rash on back and thighs. Paeint denies nausea and vomiting, fever, chills. Patient states that she would like her IV fluid stopped as these are worsening her lower extremity edema. Problem List Medical Problems: (1) Bleeding from wound Status: Acute (2) Failure of outpatient treatment Status: Acute (3) Infected dog bite Status: Acute (4) Pulmonary embolism Status: Acute Review of Systems Constitutional: No fever, No chills Respiratory: No cough, No sputum Abdomen: No pain, No nausea Neurologic: No memory loss, No paralysis Psychiatric: No depression symptoms, No anhedonism Skin: No rash, No itch All Other Systems: Reviewed and Negative Medications Current Inpatient Medications Medications (Trade) Dose Ordered Sig/Justo Route Start Time Stop Time Status Last Admin Dose Admin Lactobacillus Acidophilus (Floranex Tab) 4 tab TIDM PO 02/08/17 17:45 03/10/17 17:59 02/10/17 08:24 4 TAB Flecainide Acetate (Tambocor Tab) 100 mg BID PO 02/08/17 21:00 03/10/17 20:59 02/10/17 08:24 100 MG Furosemide (Lasix Tab) 40 mg DAILY PRN PO 02/08/17 13:45 03/10/17 13:44 Lorazepam (Ativan Tab) 0.5 mg TID PRN PO 02/08/17 13:45 03/10/17 13:44 02/09/17 20:37 0.5 MG Magnesium Oxide (Mag-Ox Tab) 400 mg QAM PO 02/09/17 09:00 03/11/17 08:59 02/10/17 08:24 400 MG Metoprolol Tartrate (Lopressor Tab) 50 mg BID PO 02/08/17 21:00 03/10/17 20:59 02/10/17 08:24 50 MG Triamterene/HCTZ (Dyazide 37.5/25 Mg Cap) 1 cap QAM PO 02/09/17 09:00 03/11/17 08:59 02/10/17 08:23 1 CAP Acetaminophen (Tylenol Tab) 650 mg Q4H PRN PO 02/08/17 13:45 03/10/17 13:44 Future Hold 02/08/17 21:18 650 MG Al Hydrox/Mg Hydrox/Simethicone (Maalox Max Susp) 15 ml Q4H PRN PO 02/08/17 13:45 03/10/17 13:44 Magnesium Hydroxide (Milk Of Magnesia Susp) 30 ml Q6H PRN PO 02/08/17 13:45 03/10/17 13:44 Polyethylene (Miralax Powder Packet) 17 gm DAILY PRN PO 02/08/17 13:45 03/10/17 13:44 Zolpidem Tartrate (Ambien Tab) 5 mg HSZ PRN PO 02/08/17 13:45 03/10/17 13:44 Glucose (Glucose 40% Gel) 15-30 GRAMS 15 GRAMS... UD PRN PO 02/08/17 23:45 03/10/17 23:44 Glucose (Glucose Chew Tab) 4-8 Tablets 4 Tabl... UD PRN PO 02/08/17 23:45 03/10/17 23:44 Dextrose (Dextrose 50% 50ML Syringe) 25-50ML OF 50% DW IV FOR... UD PRN IV 02/08/17 23:45 03/10/17 23:44 Glucagon (Glucagon Inj) 1 mg UD PRN SQ 02/08/17 23:45 03/10/17 23:44 Potassium Chloride 10 meq/ Sodium Chloride 1,005 ml @ 100 mls/hr Q10H3M IV 02/09/17 17:00 03/11/17 16:59 02/10/17 04:51 100 MLS/HR Oxycodone HCl (Roxicodone Immediate Rel Tab) 1-2 TABS FOR PAIN 1 TABLET ... Q4H PRN PO 02/09/17 16:30 02/23/17 16:29 Future Hold 02/09/17 23:16 5 MG Morphine Sulfate (MoRPHine SULFATE INJ) 2 mg Q2H PRN IV 02/09/17 16:30 02/23/17 16:29 Acetaminophen (Tylenol Tab) 1,000 mg Q8H PO 02/09/17 22:00 03/11/17 21:59 02/10/17 05:56 1,000 MG Diphenhydramine HCl (Benadryl Cap) 25 mg Q8H PRN PO 02/09/17 16:30 03/11/17 16:29 02/10/17 03:37 25 MG Multivitamins (Multivitamin Tab) 1 tab QAM PO 02/10/17 09:00 03/12/17 08:59 02/10/17 08:25 1 TAB Ondansetron HCl (Zofran Inj) 4 mg Q6H PRN IV 02/09/17 16:30 03/11/17 16:29 Insulin Aspart (novoLOG ASPART) SLIDING SCALE ACHS SC 02/10/17 08:00 03/12/17 07:59 Heparin Sodium/ Dextrose 500 ml @ 19 mls/hr Q24H PRN IV 02/10/17 10:35 03/12/17 10:34 Levofloxacin (Levaquin Tab) 750 mg DAILY@11 PO 02/10/17 11:15 02/20/17 11:14 Objective Vital Signs Date Time Temp Pulse Resp B/P (MAP) Pulse Ox O2 Delivery O2 Flow Rate FiO2 02/10/17 07:45 Room Air 02/10/17 07:28 37.0 56 18 116/78 (91) 94 Room Air 02/10/17 03:40 36.8 58 18 135/86 (102) 95 Room Air 02/09/17 23:10 96 Room Air 02/09/17 22:40 36.6 70 18 132/75 (94) 96 Room Air 02/09/17 19:35 Room Air 02/09/17 18:03 Room Air 02/09/17 17:14 36.6 55 17 126/70 (88) 96 Room Air 02/09/17 16:15 57 18 133/68 94 Room Air 02/09/17 16:05 36.9 59 20 121/69 95 Room Air Physical Exam General Appearance: WD/WN, no apparent distress Neck: supple, no adenopathy Respiratory/Chest: chest non-tender, lungs clear, normal breath sounds Cardiovascular: regular rate, rhythm, no edema, no gallop Abdomen: normal bowel sounds, non tender, + distended Extremities: normal range of motion, + pedal edema, + pertinent finding (left lower leg has dry dressing.) Skin: + rash (erythematous and papulous rash on thigh and back) Lymphatic: no adenopathy Laboratory Results Last 24 Hours Test 02/09/17 12:28 02/09/17 16:10 02/09/17 17:14 02/09/17 21:02 Bedside Glucose 130 mg/dl 118 mg/dl 111 mg/dl 129 mg/dl Test 02/10/17 06:12 02/10/17 07:52 02/10/17 07:54 White Blood Count 13.51 K/uL 12.23 K/uL Red Blood Count 4.33 M/uL 4.36 M/uL Hemoglobin 14.0 g/dL 14.0 g/dL Hematocrit 40.0 % 40.7 % Mean Corpuscular Volume 92.4 fL 93.3 fL Mean Corpuscular Hemoglobin 32.3 pg 32.1 pg Mean Corpuscular Hemoglobin Concent 35.0 g/dl 34.4 g/dl Platelet Count 334 K/uL 407 K/uL Mean Platelet Volume 11.6 fL 11.0 fL Neutrophils (%) (Auto) 73.2 % 71.6 % Lymphocytes (%) (Auto) 15.8 % 19.1 % Monocytes (%) (Auto) 9.3 % 8.0 % Eosinophils (%) (Auto) 0.6 % 0.6 % Basophils (%) (Auto) 0.4 % 0.3 % Neutrophils # (Auto) 9.91 K/uL 8.76 K/uL Lymphocytes # (Auto) 2.13 K/uL 2.33 K/uL Monocytes # (Auto) 1.25 K/uL 0.98 K/uL Eosinophils # (Auto) 0.08 K/uL 0.07 K/uL Basophils # (Auto) 0.05 K/uL 0.04 K/uL RDW Standard Deviation 44.7 fL 44.9 fL RDW Coefficient of Variation 13.0 % 13.1 % Immature Granulocyte % (Auto) 0.7 % 0.4 % Immature Granulocyte # (Auto) 0.09 K/uL 0.05 K/uL Sodium Level 135 mmol/L Potassium Level 4.5 mmol/L Chloride Level 104 mmol/L Carbon Dioxide Level 23 mmol/L Anion Gap 8.0 mmol/L Blood Urea Nitrogen 23 mg/dl Creatinine 1.05 mg/dl Est Creatinine Clear Calc Drug Dose 64.8 ml/min Estimated GFR () 62.8 Estimated GFR (Non- 54.1 BUN/Creatinine Ratio 21.5 Random Glucose 134 mg/dl Calcium Level 8.5 mg/dl Magnesium Level 2.4 mg/dl Total Bilirubin 0.5 mg/dl Aspartate Amino Transf (AST/SGOT) 14 U/L Alanine Aminotransferase (ALT/SGPT) 15 U/L Alkaline Phosphatase 97 U/L Total Protein 7.0 gm/dl Albumin 2.7 gm/dl Globulin 4.3 gm/dl Albumin/Globulin Ratio 0.6 Chemistry Specimen Hemolysis Prothrombin Time 10.9 SECONDS Prothromb Time International Ratio 1.0 Activated Partial Thromboplast Time 31.2 SECONDS Partial Thromboplastin Ratio 1.2 Bedside Glucose 140 mg/dl Assessment and Plan 67 years old female with past medical history of paroxysmal atrial fibrillation , diabetes mellitus type 2, hypertension and obesity. Patient was bitten by a neighbor's dog on February 01 and presented for wound cleaning and closure. She wasn't Augmentin as an outpatient. Unfortunately developed pulmonary embolism and was started on Xarelto. she went to wound care appointment 02/08 and was sent back to the ED because the wound is infected Assessment Infected dog bite left lower extremity, failed outpatient Augmentin Acute pulmonary embolism currently on Xarelto last taken was February 08 Paroxysmal atrial atrial fibrillation, taking flecainide for that and refused anticoagulation in the past Diabetes mellitus type 2 Hypertension Obesity Rash likely secondary to antibiotics Plan Orthopedic consult was appreciated, Dr. Damian's team performed I&D yesterday followed by wound VAC Dr. Mathis was consulted Considering future skin graft after finishing antibiotics Infectious disease consult appreciated, currently patient is on daptomycin and Zosyn initially However, developed rash, will change to levofloxacin after discussing with ID. Deep cultures are still pending. Start patient on Lactinex to protect her from C. difficile Currently Xarelto is on hold last taking was February 08. Will start patient on heparin drip I will discuss with patient her chads score and benefits versus risk of starting anticoagulation Continue home medication Obtain labs in a.m. IV fluids are stopped. 1) Wound infection following dog bite and surgical closure - pt is failing outpt Augmentin -on Levofloxacin 2) PE - remains on Xarelto - may need to hold for surgical debridement at discretion of orthopedist. On heparin drip 3) PAF - currently in a sinus rhythm - cont Flecainide 4) DM II - Sliding scale provided 5) HTN - cont current meds Full code - Heparin drip Total time for this admit including review of labs, meds, imaging, recent records - discussion with pt and ER attending - 35 min Continued [facility] stay due to: other Discharge planning: uncertain
[2017-02-10] MEDS: HEPARIN 25,000 UNIT/500ML D5W 500 ML IV PRN ×5 (11:56→23:19)
[2017-02-10] MEDS ORDERED: HEPARIN 25,000 UNIT/500ML D5W 500 ML IV PRN (12:00)
[2017-02-10] MEDS: LEVOFLOXACIN 750 MG TAB PO SCH (12:42)
[2017-02-10] MEDS ORDERED: HEPARIN IV LOW DOSE NO BOLUS SCH (15:00)
--- NOTE | 2017-02-10 16:38 | Infectious Disease Progress Nt ---
Progress Note Date of Service Feb 10, 2017. Subjective Pt evaluation today including: conversation w/ patient, conversation w/ family , physical exam, chart review, lab review, review of studies, conversation w/ senior science consultant, review of inpatient medication list Patient now status post wound debridement and placement of wound VAC. Cultures growing Aeromonas. Patient has developed diffuse maculopapular rash, and changed to oral levofloxacin as discussed with hospitalist. Otherwise feels well and offers no new complaints. Remains afebrile. All Other Systems: Reviewed and Negative Medications Current Inpatient Medications Medications (Trade) Dose Ordered Sig/Justo Route Start Time Stop Time Status Last Admin Dose Admin Lactobacillus Acidophilus (Floranex Tab) 4 tab TIDM PO 02/08/17 17:45 03/10/17 17:59 02/10/17 12:42 4 TAB Flecainide Acetate (Tambocor Tab) 100 mg BID PO 02/08/17 21:00 03/10/17 20:59 02/10/17 08:24 100 MG Furosemide (Lasix Tab) 40 mg DAILY PRN PO 02/08/17 13:45 03/10/17 13:44 Lorazepam (Ativan Tab) 0.5 mg TID PRN PO 02/08/17 13:45 03/10/17 13:44 02/09/17 20:37 0.5 MG Magnesium Oxide (Mag-Ox Tab) 400 mg QAM PO 02/09/17 09:00 03/11/17 08:59 02/10/17 08:24 400 MG Metoprolol Tartrate (Lopressor Tab) 50 mg BID PO 02/08/17 21:00 03/10/17 20:59 02/10/17 08:24 50 MG Triamterene/HCTZ (Dyazide 37.5/25 Mg Cap) 1 cap QAM PO 02/09/17 09:00 03/11/17 08:59 02/10/17 08:23 1 CAP Acetaminophen (Tylenol Tab) 650 mg Q4H PRN PO 02/08/17 13:45 03/10/17 13:44 Future Hold 02/08/17 21:18 650 MG Al Hydrox/Mg Hydrox/Simethicone (Maalox Max Susp) 15 ml Q4H PRN PO 02/08/17 13:45 03/10/17 13:44 Magnesium Hydroxide (Milk Of Magnesia Susp) 30 ml Q6H PRN PO 02/08/17 13:45 03/10/17 13:44 Polyethylene (Miralax Powder Packet) 17 gm DAILY PRN PO 02/08/17 13:45 03/10/17 13:44 Zolpidem Tartrate (Ambien Tab) 5 mg HSZ PRN PO 02/08/17 13:45 03/10/17 13:44 Glucose (Glucose 40% Gel) 15-30 GRAMS 15 GRAMS... UD PRN PO 02/08/17 23:45 03/10/17 23:44 Glucose (Glucose Chew Tab) 4-8 Tablets 4 Tabl... UD PRN PO 02/08/17 23:45 03/10/17 23:44 Dextrose (Dextrose 50% 50ML Syringe) 25-50ML OF 50% DW IV FOR... UD PRN IV 02/08/17 23:45 03/10/17 23:44 Glucagon (Glucagon Inj) 1 mg UD PRN SQ 02/08/17 23:45 03/10/17 23:44 Oxycodone HCl (Roxicodone Immediate Rel Tab) 1-2 TABS FOR PAIN 1 TABLET ... Q4H PRN PO 02/09/17 16:30 02/23/17 16:29 Future Hold 02/09/17 23:16 5 MG Morphine Sulfate (MoRPHine SULFATE INJ) 2 mg Q2H PRN IV 02/09/17 16:30 02/23/17 16:29 Acetaminophen (Tylenol Tab) 1,000 mg Q8H PO 02/09/17 22:00 03/11/17 21:59 02/10/17 14:14 1,000 MG Diphenhydramine HCl (Benadryl Cap) 25 mg Q8H PRN PO 02/09/17 16:30 03/11/17 16:29 02/10/17 12:01 25 MG Multivitamins (Multivitamin Tab) 1 tab QAM PO 02/10/17 09:00 03/12/17 08:59 02/10/17 08:25 1 TAB Ondansetron HCl (Zofran Inj) 4 mg Q6H PRN IV 02/09/17 16:30 03/11/17 16:29 Insulin Aspart (novoLOG ASPART) SLIDING SCALE ACHS SC 02/10/17 08:00 03/12/17 07:59 Heparin Sodium/ Dextrose 500 ml @ 19 mls/hr Q24H PRN IV 02/10/17 10:35 03/12/17 10:34 02/10/17 15:10 19 MLS/HR Levofloxacin (Levaquin Tab) 750 mg DAILY@11 PO 02/10/17 11:15 02/20/17 11:14 02/10/17 12:42 750 MG Objective Vital Signs Date Time Temp Pulse Resp B/P (MAP) Pulse Ox O2 Delivery O2 Flow Rate FiO2 02/10/17 15:20 36.9 57 18 108/69 (82) 94 Room Air 02/10/17 10:57 36.4 59 18 132/82 (99) 95 Room Air 02/10/17 07:45 Room Air 02/10/17 07:28 37.0 56 18 116/78 (91) 94 Room Air 02/10/17 03:40 36.8 58 18 135/86 (102) 95 Room Air 02/09/17 23:10 96 Room Air 02/09/17 22:40 36.6 70 18 132/75 (94) 96 Room Air 02/09/17 19:35 Room Air 02/09/17 18:03 Room Air 02/09/17 17:14 36.6 55 17 126/70 (88) 96 Room Air Physical Exam General Appearance: WD/WN, no apparent distress Eyes: normal inspection, EOMI, sclerae normal ENT: normal ENT inspection, pharynx normal Neck: supple, no adenopathy, thyroid normal, trachea midline Respiratory/Chest: chest non-tender, lungs clear, normal breath sounds, no respiratory distress Cardiovascular: regular rate, rhythm, no gallop, no murmur Abdomen: normal bowel sounds, non tender, soft, no organomegaly Extremities: no calf tenderness, normal capillary refill Neurologic/Psychiatric: alert, normal mood/affect, oriented x 3 Skin: normal color, + pertinent finding ( Diffuse maculopapular rash sparing the face, wound VAC in place left leg) Lymphatic: no adenopathy Laboratory Results RUN DATE: 02/10/17 [facility] LAB PAGE 1 RUN TIME: 918 Specimen Inquiry PATIENT: EVIN KAUR LOC: [facility] U # : [id number] AGE/SX: 67/F ROOM: [facility] REG : 02/08/[address]: Benjamin Heredia M.D. : 1950 BED: 2 DIS : STATUS: ADM IN TLOC: SPEC #: [id number] SANDRA: 02/08/17 STATUS: COMP REQ #: [id number] RECD: 02/08/[address] [place]: River Beckman MD SOURCE: DRAIN-SURF ENTR: 02/08/[address]: Monika Loco CRobertoRRobertoNRobertoP SPDESC: LEG LL ORDERED: SURF WND CU/BALDOMERO COMMENTS: Has Specimen Been Obtained/Collected? Y Procedure Result Verified Site GRAM STAIN Final 02/09/17-743 RESULT RARE EPITHELIAL CELLS NO ORGANISMS SEEN NO WBCs SEEN SURFACE WOUND CULTURE Final 02/10/17 Organism 1 AEROMONAS HYDROPHILA GROUP QUANITY MODERATE SENS SENSITIVITY TO FOLLOW 1. AEROMONAS HYDROPHILA GROUP Target Route Dose RX AB Cost M.I.C. IQ ------ ----- ------ -- ------ -------- - ------ TRIMET/SULFA S <=2/38 AMPICILLIN/SUL S <=8/4 CEFAZOLIN S <=8 CEFOXITIN S <=8 CEFOTAXIME S <=2 CEFTRIAXONE S <=1 CEFEPIME S <=4 CEFUROXIME S <=4 GENTAMICIN S <=4 AMIKACIN S <=16 CIPROFLOXACIN S <=1 LEVOFLOXACIN S <=2 ERTAPENEM S <=1 PIP/TAZO S <=16 S = SENSITIVE I = INTERMEDIATE R = RESISTANT END OF REPORT Last 24 Hours Test 02/09/17 17:14 02/09/17 21:02 02/10/17 06:12 02/10/17 07:52 Bedside Glucose 111 mg/dl 129 mg/dl White Blood Count 13.51 K/uL 12.23 K/uL Red Blood Count 4.33 M/uL 4.36 M/uL Hemoglobin 14.0 g/dL 14.0 g/dL Hematocrit 40.0 % 40.7 % Mean Corpuscular Volume 92.4 fL 93.3 fL Mean Corpuscular Hemoglobin 32.3 pg 32.1 pg Mean Corpuscular Hemoglobin Concent 35.0 g/dl 34.4 g/dl Platelet Count 334 K/uL 407 K/uL Mean Platelet Volume 11.6 fL 11.0 fL Neutrophils (%) (Auto) 73.2 % 71.6 % Lymphocytes (%) (Auto) 15.8 % 19.1 % Monocytes (%) (Auto) 9.3 % 8.0 % Eosinophils (%) (Auto) 0.6 % 0.6 % Basophils (%) (Auto) 0.4 % 0.3 % Neutrophils # (Auto) 9.91 K/uL 8.76 K/uL Lymphocytes # (Auto) 2.13 K/uL 2.33 K/uL Monocytes # (Auto) 1.25 K/uL 0.98 K/uL Eosinophils # (Auto) 0.08 K/uL 0.07 K/uL Basophils # (Auto) 0.05 K/uL 0.04 K/uL RDW Standard Deviation 44.7 fL 44.9 fL RDW Coefficient of Variation 13.0 % 13.1 % Immature Granulocyte % (Auto) 0.7 % 0.4 % Immature Granulocyte # (Auto) 0.09 K/uL 0.05 K/uL Sodium Level 135 mmol/L Potassium Level 4.5 mmol/L Chloride Level 104 mmol/L Carbon Dioxide Level 23 mmol/L Anion Gap 8.0 mmol/L Blood Urea Nitrogen 23 mg/dl Creatinine 1.05 mg/dl Est Creatinine Clear Calc Drug Dose 64.8 ml/min Estimated GFR () 62.8 Estimated GFR (Non- 54.1 BUN/Creatinine Ratio 21.5 Random Glucose 134 mg/dl Calcium Level 8.5 mg/dl Magnesium Level 2.4 mg/dl Total Bilirubin 0.5 mg/dl Aspartate Amino Transf (AST/SGOT) 14 U/L Alanine Aminotransferase (ALT/SGPT) 15 U/L Alkaline Phosphatase 97 U/L Total Protein 7.0 gm/dl Albumin 2.7 gm/dl Globulin 4.3 gm/dl Albumin/Globulin Ratio 0.6 Chemistry Specimen Hemolysis Prothrombin Time 10.9 SECONDS Prothromb Time International Ratio 1.0 Activated Partial Thromboplast Time 31.2 SECONDS Partial Thromboplastin Ratio 1.2 Test 02/10/17 07:54 02/10/17 12:07 Bedside Glucose 140 mg/dl 124 mg/dl Assessment and Plan 67-year-old female with complicated dog bite left lower leg, status post previous debridement, failed oral antibiotics, now status post debridement and wound VAC placement. Cultures growing Aeromonas. Has developed diffuse maculopapular rash consistent with drug eruption, previous antibiotic stopped. Patient be continued on oral levofloxacin, with length of antibiotics to be determined by clinical response. Will follow.
[2017-02-10 18:57] LABS: PARTIAL THROMBOPLASTIN RATIO 1.3
[2017-02-10] MEDS ORDERED: HEPARIN IV BOLUS 4,500 UNIT in SYRINGE 0 ML IV ONE (20:00)
[2017-02-10] MEDS: LORAZEPAM 0.5 MG TAB PO PRN (21:05)
[2017-02-11 02:08] LABS: HEMATOCRIT 36.7 % (37-47); MEAN CELL VOLUME 93.1 fL (80-100); MEAN CORPUSCULAR HEMOGLOBIN 32.2 pg (25-34); MEAN CORPUSCULAR HGB CONC 34.6 g/dl (32-36); MEAN PLATELET VOLUME 11.5 fL (7.4-10.4); PLATELET COUNT 366 K/uL (130-400); RED BLOOD COUNT 3.94 M/uL (4.2-5.4); WHITE BLOOD COUNT 11.18 K/uL (4.8-10.8)
[2017-02-11] MEDS: ZOLPIDEM TARTRATE 5 MG TAB PO PRN ×2 (02:26→21:51)
[2017-02-11 02:27] LABS: BUN/CREATININE RATIO 23.7 (10-20); CALCIUM 8.8 mg/dl (8.5-10.1); CREATININE 0.92 mg/dl (0.60-1.20); PARTIAL THROMBOPLASTIN RATIO 1.6
[2017-02-11] MEDS ORDERED: HEPARIN IV BOLUS 4,500 UNIT in SYRINGE 0 ML IV ONE (03:15)
[2017-02-11] MEDS: HEPARIN 25,000 UNIT/500ML D5W 500 ML IV PRN ×7 (03:18→19:16)
[2017-02-11] MEDS: ACETAMINOPHEN 500 MG TAB PO SCH ×3 (06:09→21:51)
[2017-02-11 06:46] VITALS: BP 99/63; PULSE 56; TEMP 37; O2SAT 95
[2017-02-11] MEDS: INSULIN ASPART 100 UNITS/ML 3 ML PEN SC SCH ×4 (08:46→20:47)
[2017-02-11] MEDS: LACTOBACILLUS ACIDOPHILUS (FLORANEX) TAB PO SCH ×3 (08:48→18:06)
[2017-02-11] MEDS: FLECAINIDE ACETATE 100 MG TAB PO SCH ×2 (08:53→20:43)
[2017-02-11] MEDS: MAGNESIUM OXIDE 400 MG TAB PO SCH (08:53)
[2017-02-11] MEDS: MULTIVITAMIN TAB PO SCH (08:54)
[2017-02-11] MEDS: METOPROLOL TARTRATE 50 MG TAB PO SCH ×2 (08:54→20:43)
[2017-02-11] MEDS: TRIAMTERENE/HCTZ 37.5/25MG CAP PO SCH (08:54)
[2017-02-11] MEDS: LORAZEPAM 0.5 MG TAB PO PRN (09:00)
[2017-02-11 10:00] LABS: PARTIAL THROMBOPLASTIN RATIO 1.6
[2017-02-11] MEDS: LEVOFLOXACIN 750 MG TAB PO SCH (10:50)
[2017-02-11] MEDS ORDERED: HEPARIN IV BOLUS 3,000 UNIT in SYRINGE 0 ML IV ONE ×2 (11:15→18:30)
--- NOTE | 2017-02-11 13:16 | ORTHOPEDIC PROGRESS NOTE ---
DATE: 02/11/2017 SUBJECTIVE: The patient is a 67-year-old white female who underwent a repeat I&D of her left lower extremity by Dr. Faye on 02/09/2017. The patient had had a previous irrigation and debridement by Dr. Pineda after a dog had bite her and became infected. Dr. Faye did the second washout and a wound VAC was placed on the wound itself. She is currently lying in bed and feels good and has good pain control. She has no complaints currently and would like to be up and more ambulatory if possible. Wound care had been by and saw her and changed her wound VAC and a new wound VAC has now been applied and she is anxious to get up and moving. She has no new complaints concerning her left lower extremity. OBJECTIVE: VITAL SIGNS: Stable. She is afebrile. EXTREMITIES: Currently, she has a new wound VAC that had been placed on the left lower extremity bite wound and appears in good condition. There is just some slight area of erythema around the actual edges of the wound itself, but there is no overt drainage coming from the wound VAC right at this time. She has no other erythema on the lower extremity noted. NEUROLOGIC: Neurovascular is intact and appears otherwise stable. ASSESSMENT: Postop day 2 status post irrigation and debridement, left lower extremity wound. PLAN: Continue IV antibiotics as per infectious disease team. The patient had developed a rash from previous IV antibiotics and has now been put on oral levofloxacin. She has also been started on oral prednisone for her rash and medicine service is adjusting anticoagulation. We will continue to follow her while she is here in the hospital. No further irrigation and debridement is needed at this time.
[2017-02-11 14:53] VITALS: BP 116/79; PULSE 67; TEMP 36.6; O2SAT 94
--- NOTE | 2017-02-11 15:24 | Infectious Disease Progress Nt ---
Progress Note Date of Service Feb 11, 2017. Subjective Pt evaluation today including: conversation w/ patient, conversation w/ family , physical exam, chart review, lab review, review of studies, conversation w/ advisor consultant, review of inpatient medication list Patient offering no new complaints today. Rash improved. No fever. Pain controlled. Appears to be tolerating levofloxacin without apparent difficulty. OR culture growing Aeromonas. All Other Systems: Reviewed and Negative Medications Current Inpatient Medications Medications (Trade) Dose Ordered Sig/Justo Route Start Time Stop Time Status Last Admin Dose Admin Lactobacillus Acidophilus (Floranex Tab) 4 tab TIDM PO 02/08/17 17:45 03/10/17 17:59 02/11/17 12:23 4 TAB Flecainide Acetate (Tambocor Tab) 100 mg BID PO 02/08/17 21:00 03/10/17 20:59 02/11/17 08:53 100 MG Furosemide (Lasix Tab) 40 mg DAILY PRN PO 02/08/17 13:45 03/10/17 13:44 Lorazepam (Ativan Tab) 0.5 mg TID PRN PO 02/08/17 13:45 03/10/17 13:44 02/11/17 09:00 0.5 MG Magnesium Oxide (Mag-Ox Tab) 400 mg QAM PO 02/09/17 09:00 03/11/17 08:59 02/11/17 08:53 400 MG Metoprolol Tartrate (Lopressor Tab) 50 mg BID PO 02/08/17 21:00 03/10/17 20:59 02/10/17 20:54 50 MG Triamterene/HCTZ (Dyazide 37.5/25 Mg Cap) 1 cap QAM PO 02/09/17 09:00 03/11/17 08:59 02/11/17 08:54 1 CAP Acetaminophen (Tylenol Tab) 650 mg Q4H PRN PO 02/08/17 13:45 03/10/17 13:44 Future Hold 02/08/17 21:18 650 MG Al Hydrox/Mg Hydrox/Simethicone (Maalox Max Susp) 15 ml Q4H PRN PO 02/08/17 13:45 03/10/17 13:44 Magnesium Hydroxide (Milk Of Magnesia Susp) 30 ml Q6H PRN PO 02/08/17 13:45 03/10/17 13:44 Polyethylene (Miralax Powder Packet) 17 gm DAILY PRN PO 02/08/17 13:45 03/10/17 13:44 Zolpidem Tartrate (Ambien Tab) 5 mg HSZ PRN PO 02/08/17 13:45 03/10/17 13:44 02/11/17 02:26 5 MG Glucose (Glucose 40% Gel) 15-30 GRAMS 15 GRAMS... UD PRN PO 02/08/17 23:45 03/10/17 23:44 Glucose (Glucose Chew Tab) 4-8 Tablets 4 Tabl... UD PRN PO 02/08/17 23:45 03/10/17 23:44 Dextrose (Dextrose 50% 50ML Syringe) 25-50ML OF 50% DW IV FOR... UD PRN IV 02/08/17 23:45 03/10/17 23:44 Glucagon (Glucagon Inj) 1 mg UD PRN SQ 02/08/17 23:45 03/10/17 23:44 Oxycodone HCl (Roxicodone Immediate Rel Tab) 1-2 TABS FOR PAIN 1 TABLET ... Q4H PRN PO 02/09/17 16:30 02/23/17 16:29 Future Hold 02/09/17 23:16 5 MG Morphine Sulfate (MoRPHine SULFATE INJ) 2 mg Q2H PRN IV 02/09/17 16:30 02/23/17 16:29 02/11/17 09:37 2 MG Acetaminophen (Tylenol Tab) 1,000 mg Q8H PO 02/09/17 22:00 03/11/17 21:59 02/11/17 13:45 1,000 MG Diphenhydramine HCl (Benadryl Cap) 25 mg Q8H PRN PO 02/09/17 16:30 03/11/17 16:29 02/10/17 21:20 25 MG Multivitamins (Multivitamin Tab) 1 tab QAM PO 02/10/17 09:00 03/12/17 08:59 02/11/17 08:54 1 TAB Ondansetron HCl (Zofran Inj) 4 mg Q6H PRN IV 02/09/17 16:30 03/11/17 16:29 Insulin Aspart (novoLOG ASPART) SLIDING SCALE ACHS SC 02/10/17 08:00 03/12/17 07:59 Heparin Sodium/ Dextrose 500 ml @ 27 mls/hr [id number] PRN IV 02/10/17 10:35 03/12/17 10:34 02/11/17 15:02 27 MLS/HR Levofloxacin (Levaquin Tab) 750 mg DAILY@11 PO 02/10/17 11:15 02/20/17 11:14 02/11/17 10:50 750 MG Prednisone (PredniSONE TAB) 40 mg QDB PO 02/11/17 08:30 02/15/17 08:31 02/11/17 08:49 40 MG Objective Vital Signs Date Time Temp Pulse Resp B/P (MAP) Pulse Ox O2 Delivery O2 Flow Rate FiO2 02/11/17 14:53 36.6 67 18 116/79 (91) 94 Room Air 02/11/17 06:46 37.0 56 17 99/63 (75) 95 Room Air 02/10/17 23:20 Room Air 02/10/17 22:45 37.0 52 18 126/82 (97) 97 Room Air 02/10/17 21:01 62 139/79 (99) 02/10/17 20:08 94 Room Air 02/10/17 20:00 36.8 60 20 115/69 (84) 94 Room Air 02/10/17 16:00 Room Air Physical Exam General Appearance: WD/WN, no apparent distress Eyes: normal inspection, EOMI, sclerae normal ENT: normal ENT inspection, pharynx normal Neck: supple, no adenopathy, trachea midline Respiratory/Chest: chest non-tender, lungs clear, normal breath sounds, no respiratory distress Cardiovascular: regular rate, rhythm, no gallop, no murmur Abdomen: normal bowel sounds, non tender, soft, no organomegaly Extremities: non-tender, no calf tenderness Neurologic/Psychiatric: alert, normal mood/affect, oriented x 3 Skin: normal color, + pertinent finding (Diffuse maculopapular rash slightly better, wound VAC in place left leg) Lymphatic: no adenopathy Laboratory Results RUN DATE: 02/11/17 [facility] LAB PAGE 1 RUN TIME: 954 Specimen Inquiry PATIENT: EVIN KAUR LOC: MARIA ELENA U # : [id number] AGE/SX: 67/F ROOM: [facility] REG : 02/08/[address]: Benjamin Heredia M.D. : 1950 BED: 2 DIS : STATUS: ADM IN TLOC: SPEC #: [id number] SANDRA: 02/09/17 STATUS: COMP REQ #: [id number] RECD: 02/09/[address]: Benjamin Heredia M.D. SOURCE: TISSUE ENTR: 02/09/[address]: Prosper Lim MD SPDESC: LEG LL Monika Loco C.R.N.P Sensiba, Paul R., M.D. ORDERED: DEP RENETTA CUL/BALDOMERO COMMENTS: LEFT LEG WOUND DOG BITE Procedure Result Verified Site GRAM STAIN Final 02/10/17-720 RESULT FEW WBCs SEEN NO ORGANISMS SEEN DEEP WOUND CULTURE Final 02/11/17-954 Organism 1 AEROMONAS HYDROPHILA GROUP QUANITY RARE SENS NO SENSITIVITY TO FOLLOW PLEASE SEE CULTURE NUMBER [id number] FOR SENSITIVITIES. Last 24 Hours Test 02/10/17 17:03 02/10/17 18:33 02/10/17 20:29 02/11/17 01:39 Bedside Glucose 102 mg/dl 146 mg/dl Activated Partial Thromboplast Time 32.6 SECONDS 40.6 SECONDS Partial Thromboplastin Ratio 1.3 1.6 White Blood Count 11.18 K/uL Red Blood Count 3.94 M/uL Hemoglobin 12.7 g/dL Hematocrit 36.7 % Mean Corpuscular Volume 93.1 fL Mean Corpuscular Hemoglobin 32.2 pg Mean Corpuscular Hemoglobin Concent 34.6 g/dl RDW Standard Deviation 44.6 fL RDW Coefficient of Variation 13.1 % Platelet Count 366 K/uL Mean Platelet Volume 11.5 fL Sodium Level 139 mmol/L Potassium Level 4.0 mmol/L Chloride Level 106 mmol/L Carbon Dioxide Level 21 mmol/L Anion Gap 12.0 mmol/L Blood Urea Nitrogen 22 mg/dl Creatinine 0.92 mg/dl Est Creatinine Clear Calc Drug Dose 74.0 ml/min Estimated GFR () 73.6 Estimated GFR (Non- 63.5 BUN/Creatinine Ratio 23.7 Random Glucose 133 mg/dl Calcium Level 8.8 mg/dl Test 02/11/17 08:11 02/11/17 09:33 02/11/17 11:56 Bedside Glucose 156 mg/dl 142 mg/dl Activated Partial Thromboplast Time 42.2 SECONDS Partial Thromboplastin Ratio 1.6 Assessment and Plan 67-year-old female with complicated dog bite left lower leg, status post previous debridement, failed oral antibiotics, now status post debridement and wound VAC placement. Cultures growing Aeromonas. Has developed diffuse maculopapular rash consistent with drug eruption, previous antibiotic stopped. Patient be continued on oral levofloxacin, with length of antibiotics to be determined by clinical response, likely in the range of 2 weeks. Will follow.
[2017-02-11] MEDS ORDERED: NURSING VERBAL MED ORDER ONE (17:15)
[2017-02-11 17:46] LABS: PARTIAL THROMBOPLASTIN RATIO 1.7
[2017-02-11 20:30] VITALS: BP 135/80; PULSE 71
[2017-02-11 23:40] VITALS: BP 120/70; PULSE 53; TEMP 36.5; O2SAT 97
[2017-02-12 01:40] LABS: PARTIAL THROMBOPLASTIN RATIO 1.9
[2017-02-12] MEDS: HEPARIN 25,000 UNIT/500ML D5W 500 ML IV PRN ×5 (03:01→15:02)
[2017-02-12] MEDS: ACETAMINOPHEN 500 MG TAB PO SCH ×2 (05:41→13:27)
[2017-02-12 06:02] LABS: HEMATOCRIT 40.2 % (37-47); MEAN CELL VOLUME 92.8 fL (80-100); MEAN CORPUSCULAR HEMOGLOBIN 32.3 pg (25-34); MEAN CORPUSCULAR HGB CONC 34.8 g/dl (32-36); PLATELET COUNT 454 K/uL (130-400); RED BLOOD COUNT 4.33 M/uL (4.2-5.4); WHITE BLOOD COUNT 15.52 K/uL (4.8-10.8)
[2017-02-12 06:22] LABS: PARTIAL THROMBOPLASTIN RATIO 1.7
--- NOTE | 2017-02-12 06:35 | Progress Note ---
Subjective Date of Service: Feb 12, 2017. Subjective Patient reports doing well, but has this new generalized rash on back and thighs which has not improved. Paeint denies nausea and vomiting, fever, chills. Problem List Medical Problems: (1) Bleeding from wound Status: Acute (2) Failure of outpatient treatment Status: Acute (3) Infected dog bite Status: Acute (4) Pulmonary embolism Status: Acute Review of Systems Constitutional: No fever, No chills Abdomen: No pain, No nausea Psychiatric: No depression symptoms Heme: No abnormal bleeding/bruising Skin: No rash All Other Systems: Reviewed and Negative Objective Vital Signs Date Time Temp Pulse Resp B/P (MAP) Pulse Ox O2 Delivery O2 Flow Rate FiO2 02/11/17 23:40 36.5 53 18 120/70 (87) 97 Room Air 02/11/17 20:30 71 135/80 (98) 02/11/17 19:15 Room Air 02/11/17 15:30 Room Air 02/11/17 14:53 36.6 67 18 116/79 (91) 94 Room Air 02/11/17 06:46 37.0 56 17 99/63 (75) 95 Room Air Physical Exam Comments: General Appearance: WD/WN, no apparent distress Neck: supple, no adenopathy Respiratory/Chest: chest non-tender, lungs clear, normal breath sounds Cardiovascular: regular rate, rhythm, no edema, no gallop Abdomen: normal bowel sounds, non tender, + distended Extremities: normal range of motion, + pedal edema, + pertinent finding (left lower leg has dry dressing.) Skin: + rash (erythematous and papulous rash on thigh and back) Lymphatic: no adenopathy Laboratory Results Last 24 Hours Test 02/11/17 08:11 02/11/17 09:33 02/11/17 11:56 02/11/17 16:55 Bedside Glucose 156 mg/dl 142 mg/dl 214 mg/dl Activated Partial Thromboplast Time 42.2 SECONDS Partial Thromboplastin Ratio 1.6 Test 02/11/17 17:07 02/11/17 20:36 02/12/17 01:01 02/12/17 05:47 Activated Partial Thromboplast Time 43.3 SECONDS 48.6 SECONDS 44.8 SECONDS Partial Thromboplastin Ratio 1.7 1.9 1.7 Bedside Glucose 208 mg/dl White Blood Count 15.52 K/uL Red Blood Count 4.33 M/uL Hemoglobin 14.0 g/dL Hematocrit 40.2 % Mean Corpuscular Volume 92.8 fL Mean Corpuscular Hemoglobin 32.3 pg Mean Corpuscular Hemoglobin Concent 34.8 g/dl RDW Standard Deviation 43.3 fL RDW Coefficient of Variation 12.8 % Platelet Count 454 K/uL Mean Platelet Volume 11.0 fL Test 02/12/17 06:24 Bedside Glucose 122 mg/dl Assessment and Plan 67 years old female with past medical history of paroxysmal atrial fibrillation , diabetes mellitus type 2, hypertension and obesity. Patient was bitten by a neighbor's dog on February 01 and presented for wound cleaning and closure. She wasn't Augmentin as an outpatient. Unfortunately developed pulmonary embolism and was started on Xarelto. she went to wound care appointment 02/08 and was sent back to the ED because the wound is infected Assessment Infected dog bite left lower extremity, failed outpatient Augmentin Acute pulmonary embolism currently on Xarelto last taken was February 08 Paroxysmal atrial atrial fibrillation, taking flecainide for that and refused anticoagulation in the past Diabetes mellitus type 2 Hypertension Obesity Rash likely secondary to antibiotics Plan Orthopedic consult was appreciated, Dr. Damian's team performed I&D yesterday followed by wound VAC Dr. Mathis was consulted Considering future skin graft after finishing antibiotics Infectious disease consult appreciated, currently patient is on daptomycin and Zosyn initially However, developed rash, will change to levofloxacin after discussing with ID. Deep cultures are still pending. Start patient on Lactinex to protect her from C. difficile Currently Xarelto is on hold last taking was February 08. Will continue patient on heparin drip Risk is levated based on chadsvasc score. discussed risk of xarelto failing due to BMI. patient is aware but wants to continue with it Continue home medication Obtain labs in a.m. IV fluids are stopped. 1) Wound infection following dog bite and surgical closure - pt is failing outpt Augmentin -on Levofloxacin 2) PE - remains on Xarelto - may need to hold for surgical debridement at discretion of orthopedist. On heparin drip 3) PAF - currently in a sinus rhythm - cont Flecainide 4) DM II - Sliding scale provided 5) HTN - cont current meds Full code - Heparin drip Total time for this admit including review of labs, meds, imaging, recent records - discussion with pt and ER attending - 35 min Continued [facility] stay due to: other Discharge planning: uncertain
[2017-02-12] MEDS ORDERED: HEPARIN IV BOLUS 3,000 UNIT in SYRINGE 0 ML IV ONE ×2 (06:45→14:45)
[2017-02-12 07:09] VITALS: BP 172/93; PULSE 48; TEMP 36.5; O2SAT 97
[2017-02-12] MEDS: INSULIN ASPART 100 UNITS/ML 3 ML PEN SC SCH ×3 (08:00→17:54)
[2017-02-12 08:05] VITALS: O2SAT 97
[2017-02-12 08:07] VITALS: BP 129/74; PULSE 46
[2017-02-12] MEDS ORDERED: NURSING VERBAL MED ORDER ONE (08:23)
--- NOTE | 2017-02-12 08:32 | Orthopedic Progress Note ---
Orthopedic Progress Note Date of Service Feb 12, 2017. Subjective Reports: feeling well, Denies: chest pain, SOB, nausea / vomiting, light headedness Objective calves soft nontender, N/V intact, dressing C/D/I (wound vac), A&O x3, toes mobile Date Time Temp Pulse Resp B/P (MAP) Pulse Ox O2 Delivery O2 Flow Rate FiO2 02/12/17 08:07 46 129/74 (92) 02/12/17 07:09 36.5 48 16 172/93 (119) 97 Room Air 02/11/17 23:40 36.5 53 18 120/70 (87) 97 Room Air 02/11/17 20:30 71 135/80 (98) 02/11/17 19:15 Room Air 02/11/17 15:30 Room Air 02/11/17 14:53 36.6 67 18 116/79 (91) 94 Room Air Laboratory Results 24 Hours: Test 02/12/17 05:47 Hematocrit 40.2 % Hemoglobin 14.0 g/dL Additional Notes: GRAM STAIN Final 02/10/17-720 RESULT FEW WBCs SEEN NO ORGANISMS SEEN DEEP WOUND CULTURE Final 02/11/17-954 Organism 1 AEROMONAS HYDROPHILA GROUP QUANITY RARE SENS NO SENSITIVITY TO FOLLOW PLEASE SEE CULTURE NUMBER [id number] FOR SENSITIVITIES. Assessment & Plan Assessment: POD #3 Left lower leg I&D and wound vac placement. Plan: DVT - SCD, TENS Cultures - see above. ID recommend PO Levaquin x [address]- will need outpatient wound care follow up. Diffuse rash over upper thigh, abdomen, triceps, and back - could be contact dermatitis vs. pityriasis rosea as she had tried new soaps and linens were changed. ORTHOPEDICALLY STABLE. NO NEED FOR FURTHER SURGICAL INTERVENTION AT THIS TIME. [place] [facility] [id number] Planning Pain Management: Morphine, PO Tylenol DVT Prophylaxis: TEDs, SCDs, Heparin Drip Discharge Planning Discharge Planning: uncertain
--- NOTE | 2017-02-12 08:34 | Consultant Recommendations ---
Track Layer Head Recommendations Date of Service Feb 12, 2017. Track Layer Head Recommendations PO LEVAQUIN X 2 WEEKS PER ID FOLLOW UP WITH WOUND CARE FOR WOUND VAC/WOUND MANAGEMENT FOLLOW UP AT [facility] [place] [phone] IN 2 WEEKS. PAIN MANAGEMENT
[2017-02-12] MEDS: METOPROLOL TARTRATE 50 MG TAB PO SCH (08:38)
[2017-02-12] MEDS: LACTOBACILLUS ACIDOPHILUS (FLORANEX) TAB PO SCH ×3 (08:47→18:11)
[2017-02-12] MEDS: FLECAINIDE ACETATE 100 MG TAB PO SCH (08:47)
[2017-02-12] MEDS: MAGNESIUM OXIDE 400 MG TAB PO SCH (08:48)
[2017-02-12] MEDS: TRIAMTERENE/HCTZ 37.5/25MG CAP PO SCH (08:48)
[2017-02-12] MEDS: MULTIVITAMIN TAB PO SCH (08:49)
[2017-02-12 09:20] VITALS: BP 156/83; PULSE 63; O2SAT 97
[2017-02-12] MEDS: LEVOFLOXACIN 750 MG TAB PO SCH (10:57)
[2017-02-12 13:27] LABS: PARTIAL THROMBOPLASTIN RATIO 1.7
[2017-02-12] MEDS: LORAZEPAM 0.5 MG TAB PO PRN (13:33)
[2017-02-12 15:14] VITALS: BP 114/81; PULSE 62; TEMP 36.6; O2SAT 96
--- NOTE | 2017-02-12 15:52 | Progress Note ---
Progress Note Date of Service Feb 12, 2017. Progress Note Patient seen today at beside. VSS and patient is happy. Her wound vac is in place. She is being d/c home with antibiotics and wound vac. She is having home health nurse some to change vac for her. She should follow-up with wound care ( Dr. Metcalf). Pending wound status, she could be a candidate for skin graft in the future. She may follow-up in our office as needed.
[2017-02-12 16:58] VITALS: BP 114/81; PULSE 62; TEMP 36.6; O2SAT 96
[2017-02-12] MEDS ORDERED: RIVAROXABAN TAB 15 MG TAB PO SCH (18:00)
--- NOTE | 2017-02-12 18:03 | Discharge Instructions ---
Discharge Instructions Date of Service Feb 12, 2017. Admission Reason for Admission: Dog Bite, Wound Infection Discharge Discharge Diagnosis / Problem: Tip bite wound/ s/p debridement on wound vac Discharge Goals Goal(s): Decrease discomfort, Improve function, Increase independence Activity Recommendations Activity Limitations: as noted below Lifting Limitations: gradually increase as tolerated Exercise/Sports Limitations: until after follow-up appointment May Resume Sexual Activity: when tolerated Shower/Bathe: keep incision dry Driving or Machine Use: no driving . Instructions / Follow-Up Instructions / Follow-Up Spoke w/ wound clinic, scheduled follow up, and DC instructions revised - " Please, follow up with Monika HOLDEN on FridayFebruary 18 at 10:30 am. *If you need to change this appointment you can call her office at [phone]. Please, follow up at [facility] on February 20 at 2:[address] Lim (infectious disease specialist) will also see you while you are at the clinic. *This clinic is located at [address] ([address]) in [place]. The clinic phone number is [phone]. Please, follow up with Dr. Faye at [facility] as directed/if directed to by the wound clinic. *Office phone number [phone]." - Current Hospital Diet Patient's current hospital diet: AHA Diet (Heart Healthy), Diabetes Type 2 Diet Discharge Diet Recommended Diet: Diabetes Type 2 Diet Procedures Procedures Performed: Irrigation and Debridement left leg, Application of Wound Vac, Left Leg Pending Studies Studies pending at discharge: no Medical Emergencies . Who to Call and When: Medical Emergencies: If at any time you feel your situation is an emergency, please call 911 immediately. . Non-Emergent Contact Non-Emergency issues call your: Primary Care Provider Call Non-Emergent contact if: you have a fever, your pain is worsening . . "Provider Documentation" section prepared by Hunter Palomares. . Business Operations Manager Recommendations Business Operations Manager Recommendations: PO LEVAQUIN X 2 WEEKS PER ID FOLLOW UP WITH WOUND CARE FOR WOUND VAC/WOUND MANAGEMENT [place] [facility] [phone] [place] 2 WEEKS. PAIN MANAGEMENT VTE Core Measure Inpt VTE Proph given/why not?: Other Anticoagulation
--- NOTE | 2017-02-12 18:15 | Infectious Disease Progress Nt ---
Progress Note Date of Service Feb 12, 2017. Subjective Pt evaluation today including: conversation w/ patient, conversation w/ family , physical exam, chart review, lab review, review of studies, conversation w/ production support consultant, review of inpatient medication list No new complaints today. Pain controlled. Remains afebrile. Cultures positive for Aeromonas. All Other Systems: Reviewed and Negative Medications Current Inpatient Medications Medications (Trade) Dose Ordered Sig/Justo Route Start Time Stop Time Status Last Admin Dose Admin Lactobacillus Acidophilus (Floranex Tab) 4 tab TIDM PO 02/08/17 17:45 03/10/17 17:59 02/12/17 12:21 4 TAB Flecainide Acetate (Tambocor Tab) 100 mg BID PO 02/08/17 21:00 03/10/17 20:59 02/12/17 08:47 100 MG Furosemide (Lasix Tab) 40 mg DAILY PRN PO 02/08/17 13:45 03/10/17 13:44 Lorazepam (Ativan Tab) 0.5 mg TID PRN PO 02/08/17 13:45 03/10/17 13:44 02/12/17 13:33 0.5 MG Magnesium Oxide (Mag-Ox Tab) 400 mg QAM PO 02/09/17 09:00 03/11/17 08:59 02/12/17 08:48 400 MG Metoprolol Tartrate (Lopressor Tab) 50 mg BID PO 02/08/17 21:00 03/10/17 20:59 02/11/17 20:43 50 MG Triamterene/HCTZ (Dyazide 37.5/25 Mg Cap) 1 cap QAM PO 02/09/17 09:00 03/11/17 08:59 02/12/17 08:48 1 CAP Acetaminophen (Tylenol Tab) 650 mg Q4H PRN PO 02/08/17 13:45 03/10/17 13:44 Future Hold 02/08/17 21:18 650 MG Al Hydrox/Mg Hydrox/Simethicone (Maalox Max Susp) 15 ml Q4H PRN PO 02/08/17 13:45 03/10/17 13:44 Magnesium Hydroxide (Milk Of Magnesia Susp) 30 ml Q6H PRN PO 02/08/17 13:45 03/10/17 13:44 Polyethylene (Miralax Powder Packet) 17 gm DAILY PRN PO 02/08/17 13:45 03/10/17 13:44 Zolpidem Tartrate (Ambien Tab) 5 mg HSZ PRN PO 02/08/17 13:45 03/10/17 13:44 02/11/17 21:51 5 MG Glucose (Glucose 40% Gel) 15-30 GRAMS 15 GRAMS... UD PRN PO 02/08/17 23:45 03/10/17 23:44 Glucose (Glucose Chew Tab) 4-8 Tablets 4 Tabl... UD PRN PO 02/08/17 23:45 03/10/17 23:44 Dextrose (Dextrose 50% 50ML Syringe) 25-50ML OF 50% DW IV FOR... UD PRN IV 02/08/17 23:45 03/10/17 23:44 Glucagon (Glucagon Inj) 1 mg UD PRN SQ 02/08/17 23:45 03/10/17 23:44 Oxycodone HCl (Roxicodone Immediate Rel Tab) 1-2 TABS FOR PAIN 1 TABLET ... Q4H PRN PO 02/09/17 16:30 02/23/17 16:29 Future Hold 02/09/17 23:16 5 MG Morphine Sulfate (MoRPHine SULFATE INJ) 2 mg Q2H PRN IV 02/09/17 16:30 02/23/17 16:29 02/11/17 09:37 2 MG Acetaminophen (Tylenol Tab) 1,000 mg Q8H PO 02/09/17 22:00 03/11/17 21:59 02/12/17 13:27 1,000 MG Diphenhydramine HCl (Benadryl Cap) 25 mg Q8H PRN PO 02/09/17 16:30 03/11/17 16:29 02/10/17 21:20 25 MG Multivitamins (Multivitamin Tab) 1 tab QAM PO 02/10/17 09:00 03/12/17 08:59 02/12/17 08:49 1 TAB Ondansetron HCl (Zofran Inj) 4 mg Q6H PRN IV 02/09/17 16:30 03/11/17 16:29 Insulin Aspart (novoLOG ASPART) SLIDING SCALE ACHS SC 02/10/17 08:00 03/12/17 07:59 02/11/17 20:47 3 UNITS Levofloxacin (Levaquin Tab) 750 mg DAILY@11 PO 02/10/17 11:15 02/20/17 11:14 02/12/17 10:57 750 MG Rivaroxaban (Xarelto Tab) 15 mg BIDM PO 02/12/17 18:00 03/05/17 17:59 Objective Vital Signs Date Time Temp Pulse Resp B/P (MAP) Pulse Ox O2 Delivery O2 Flow Rate FiO2 02/12/17 16:58 36.6 62 18 96 Room Air 02/12/17 15:15 Room Air 02/12/17 15:14 36.6 62 18 114/81 (92) 96 Room Air 02/12/17 09:20 63 156/83 (107) 97 Room Air 02/12/17 08:07 46 129/74 (92) 02/12/17 08:05 97 Room Air 02/12/17 07:09 36.5 48 16 172/93 (119) 97 Room Air 02/11/17 23:40 36.5 53 18 120/70 (87) 97 Room Air 02/11/17 20:30 71 135/80 (98) 02/11/17 19:15 Room Air Physical Exam General Appearance: WD/WN, no apparent distress Eyes: normal inspection, EOMI, sclerae normal ENT: normal ENT inspection, pharynx normal Neck: supple, no adenopathy, trachea midline Respiratory/Chest: chest non-tender, lungs clear, normal breath sounds, no respiratory distress Cardiovascular: regular rate, rhythm, no gallop, no murmur Abdomen: normal bowel sounds, non tender, soft, no organomegaly Extremities: no calf tenderness, normal capillary refill Neurologic/Psychiatric: alert, oriented x 3 Skin: normal color, + rash (Improving), + pertinent finding (Surgical dressing intact) Lymphatic: no adenopathy Laboratory Results Last 24 Hours Test 02/11/17 20:36 02/12/17 01:01 02/12/17 05:47 02/12/17 06:24 Bedside Glucose 208 mg/dl 122 mg/dl Activated Partial Thromboplast Time 48.6 SECONDS 44.8 SECONDS Partial Thromboplastin Ratio 1.9 1.7 White Blood Count 15.52 K/uL Red Blood Count 4.33 M/uL Hemoglobin 14.0 g/dL Hematocrit 40.2 % Mean Corpuscular Volume 92.8 fL Mean Corpuscular Hemoglobin 32.3 pg Mean Corpuscular Hemoglobin Concent 34.8 g/dl RDW Standard Deviation 43.3 fL RDW Coefficient of Variation 12.8 % Platelet Count 454 K/uL Mean Platelet Volume 11.0 fL Test 02/12/17 07:59 02/12/17 11:54 02/12/17 12:50 02/12/17 17:09 Bedside Glucose 126 mg/dl 120 mg/dl 137 mg/dl Activated Partial Thromboplast Time 44.1 SECONDS Partial Thromboplastin Ratio 1.7 Assessment and Plan 67-year-old female with complicated dog bite left lower leg, status post previous debridement, failed oral antibiotics, now status post debridement and wound VAC placement. Cultures growing Aeromonas.Developed diffuse maculopapular rash consistent with drug eruption, previous antibiotic stopped. Patient be continued on oral levofloxacin, with length of antibiotics to be determined by clinical response, likely in the range of 2 weeks. Would like to see the patient in the office before oral antibiotics discontinued. Will discuss with all involved.
[2017-02-12] MEDS ORDERED: LEVO1TAB35 PO (18:18)
[2017-02-20] MEDS ORDERED: CEFU1TAB36 PO (14:14)
--- NOTE | 2017-02-24 08:16 | Discharge Summary ---
Discharge Summary Date of Service Feb 12, 2017. Discharge Summary Admission Date: Feb 08, 2017 at 13:51 Discharge Date: Feb 12, 2017 Discharge Disposition: Home with services Principal Diagnosis: Left lower leg wound secondary to dog bite Immunizations: Have You Had Influenza Vaccine: No History of Tetanus Vaccine?: Yes Tetanus Immunization Date: Jun 12, 2001 History of Pneumococcal: No History of Hepatitis B Vaccine: No Consultations: Orthopedic Consultation Date of Consultation: Feb 09, 2017. Attending Physician: Benjamin Heredia M.D. Reason for Consultation: Wound left leg History of Present Illness Patient is a 67-year-old female who approximately a week ago sustained a rather severe dog bite to the distal lateral aspect of the left leg. Fair amount of tissue loss was present secondary to the bite. She was washed out and primarily closed however the closure was tight at the time of surgery per Dr. Pineda. She even placed on Lovenox postoperatively. She presented to the emergency room with increasing chest pain. Imaging is positive for PE. She is on Cymbalta. The wound had a Prevena wound VAC on top of the. However the skin a portion of it has become rather dusky and becoming necrotic. Past Medical/Surgical History Medical Problems: (1) Bleeding from wound Status: Acute (2) Failure of outpatient treatment Status: Acute (3) Infected dog bite Status: Acute (4) Pulmonary embolism Status: Acute Family History No significant family history Social History Smoking Status: Never Smoker Drug Use: none Marital Status: Housing Status: lives with significant other Occupation Status: employed Allergies Coded Allergies: No Known Allergies (Unverified , 02/08/17) Home Medications Scheduled Amoxicillin & Pot Clavulanate (Augmentin 500MG), 500 MG PO Q8H Flecainide (Tambocor), 100 MG PO BID Magnesium Oxide (Mag-Ox), 400 MG PO QAM Metformin Hcl (Glucophage), 500 MG PO BID Metoprolol Tartrate (Lopressor) (Lopressor), 50 MG PO BID Multivitamin (Multivitamin), 1 TAB PO QAM Rivaroxaban (Xarelto), 15 MG PO BID Triamterene/Hctz (Maxzide 75MG/50MG), 1 TAB PO QAM Scheduled PRN Furosemide (Lasix), 40 MG PO DAILY PRN for SWELLING Lorazepam (Ativan), 0.5 MG PO TID PRN for Sleep Current Inpatient Medications Current Inpatient Medications Medications (Trade) Dose Ordered Sig/Justo Route Start Time Stop Time Status Last Admin Dose Admin Lactobacillus Acidophilus (Floranex Tab) 4 tab TIDM PO 02/08/17 17:45 03/10/17 17:59 02/08/17 19:04 4 TAB Flecainide Acetate (Tambocor Tab) 100 mg BID PO 02/08/17 21:00 03/10/17 20:59 02/09/17 09:27 100 MG Furosemide (Lasix Tab) 40 mg DAILY PRN PO 02/08/17 13:45 03/10/17 13:44 Lorazepam (Ativan Tab) 0.5 mg TID PRN PO 02/08/17 13:45 03/10/17 13:44 02/08/17 23:40 0.5 MG Magnesium Oxide (Mag-Ox Tab) 400 mg QAM PO 02/09/17 09:00 03/11/17 08:59 02/09/17 09:27 400 MG Metoprolol Tartrate (Lopressor Tab) 50 mg BID PO 02/08/17 21:00 03/10/17 20:59 02/09/17 09:27 50 MG Triamterene/HCTZ (Dyazide 37.5/25 Mg Cap) 1 cap QAM PO 02/09/17 09:00 03/11/17 08:59 02/09/17 09:27 1 CAP Acetaminophen (Tylenol Tab) 650 mg Q4H PRN PO 02/08/17 13:45 03/10/17 13:44 02/08/17 21:18 650 MG Al Hydrox/Mg Hydrox/Simethicone (Maalox Max Susp) 15 ml Q4H PRN PO 02/08/17 13:45 03/10/17 13:44 Magnesium Hydroxide (Milk Of Magnesia Susp) 30 ml Q6H PRN PO 02/08/17 13:45 03/10/17 13:44 Polyethylene (Miralax Powder Packet) 17 gm DAILY PRN PO 02/08/17 13:45 03/10/17 13:44 Zolpidem Tartrate (Ambien Tab) 5 mg HSZ PRN PO 02/08/17 13:45 03/10/17 13:44 Ondansetron HCl (Zofran Inj) 4 mg Q6H PRN IV 02/08/17 13:45 03/10/17 13:44 Piperacillin Sod/ Tazobactam Sod 4.5 gm/Dextrose 120 ml @ 30 mls/hr Q8H IV 02/08/17 20:00 02/18/17 19:59 02/09/17 04:05 30 MLS/HR Piperacillin Sod/ Tazobactam Sod (Consult) 1 ea UD PRN N/A 02/08/17 17:15 03/10/17 17:14 Daptomycin 500 mg/ Sodium Chloride 60 ml @ 100 mls/hr Q24H IV 02/08/17 20:00 02/18/17 19:59 02/08/17 20:15 100 MLS/HR Glucose (Glucose 40% Gel) 15-30 GRAMS 15 GRAMS... UD PRN PO 02/08/17 23:45 03/10/17 23:44 Glucose (Glucose Chew Tab) 4-8 Tablets 4 Tabl... UD PRN PO 02/08/17 23:45 03/10/17 23:44 Dextrose (Dextrose 50% 50ML Syringe) 25-50ML OF 50% DW IV FOR... UD PRN IV 02/08/17 23:45 03/10/17 23:44 Glucagon (Glucagon Inj) 1 mg UD PRN SQ 02/08/17 23:45 03/10/17 23:44 Insulin Aspart (novoLOG ASPART) SLIDING SCALE Q6 SC 02/09/17 06:00 03/11/17 05:59 Physical Exam Date Time Temp Pulse Resp B/P (MAP) Pulse Ox O2 Delivery O2 Flow Rate FiO2 02/09/17 07:50 Room Air 02/09/17 06:48 36.6 67 18 126/81 (96) 95 Room Air 02/08/17 23:43 Room Air 02/08/17 22:50 36.7 52 18 121/77 (92) 96 Room Air 02/08/17 20:00 98 Room Air 02/08/17 16:40 Room Air 02/08/17 16:38 36.4 59 17 146/75 (98) 98 Room Air 02/08/17 14:55 50 18 150/90 97 Room Air 02/08/17 14:18 Room Air 02/08/17 13:35 60 16 154/90 97 02/08/17 11:29 36.9 59 18 138/104 97 Room Air Resurrection: Light touch sensation and motor function is intact distally. No pain cath. Negative Homans. The wound is over the distal lateral aspect of the leg. The skin proximal to the wound looks good the midline portion looks like it is healing well and was closed with suture. The more lateral aspect is becoming demarcated and skin is necrotic. There is some questionable for diabetes material in the far lateral aspect. No gross fluctuance is appreciated. There is some yellowish material on the skin edges the most lateral aspect. The necrotic area measured about 10 cm in length by about 3 cm in width General Appearance: WD/WN Head: normocephalic Eyes: normal inspection Respiratory/Chest: chest non-tender Cardiovascular: regular rate, rhythm Laboratory Results Last 24 Hours Test 02/08/17 12:15 02/08/17 17:38 02/08/17 20:56 02/09/17 05:51 White Blood Count 13.18 K/uL Red Blood Count 4.68 M/uL Hemoglobin 15.1 g/dL Hematocrit 44.1 % Mean Corpuscular Volume 94.2 fL Mean Corpuscular Hemoglobin 32.3 pg Mean Corpuscular Hemoglobin Concent 34.2 g/dl Platelet Count 397 K/uL Mean Platelet Volume 11.2 fL Neutrophils (%) (Auto) 75.1 % Lymphocytes (%) (Auto) 14.7 % Monocytes (%) (Auto) 8.3 % Eosinophils (%) (Auto) 0.9 % Basophils (%) (Auto) 0.5 % Neutrophils # (Auto) 9.90 K/uL Lymphocytes # (Auto) 1.94 K/uL Monocytes # (Auto) 1.09 K/uL Eosinophils # (Auto) 0.12 K/uL Basophils # (Auto) 0.06 K/uL RDW Standard Deviation 44.7 fL RDW Coefficient of Variation 13.0 % Immature Granulocyte % (Auto) 0.5 % Immature Granulocyte # (Auto) 0.07 K/uL Sodium Level 135 mmol/L Potassium Level 4.4 mmol/L Chloride Level 103 mmol/L Carbon Dioxide Level 23 mmol/L Anion Gap 9.0 mmol/L Blood Urea Nitrogen 26 mg/dl Creatinine 0.95 mg/dl Est Creatinine Clear Calc Drug Dose 71.6 ml/min Estimated GFR () 70.8 Estimated GFR (Non- 61.1 BUN/Creatinine Ratio 26.9 Random Glucose 105 mg/dl Calcium Level 9.6 mg/dl Bedside Glucose 107 mg/dl 121 mg/dl 114 mg/dl Test 02/09/17 07:17 02/09/17 07:53 White Blood Count 13.68 K/uL Red Blood Count 4.43 M/uL Hemoglobin 14.4 g/dL Hematocrit 41.7 % Mean Corpuscular Volume 94.1 fL Mean Corpuscular Hemoglobin 32.5 pg Mean Corpuscular Hemoglobin Concent 34.5 g/dl RDW Standard Deviation 45.2 fL RDW Coefficient of Variation 13.1 % Platelet Count 348 K/uL Mean Platelet Volume 11.2 fL Sodium Level 136 mmol/L Potassium Level 3.6 mmol/L Chloride Level 101 mmol/L Carbon Dioxide Level 25 mmol/L Anion Gap 11.0 mmol/L Blood Urea Nitrogen 27 mg/dl Creatinine 1.11 mg/dl Est Creatinine Clear Calc Drug Dose 61.3 ml/min Estimated GFR () 58.7 Estimated GFR (Non- 50.6 BUN/Creatinine Ratio 24.7 Random Glucose 151 mg/dl Calcium Level 8.9 mg/dl Bedside Glucose 147 mg/dl Assessment & Plan Right leg wound status post dog bite with skin necrosis I discussed the case with Dr. Narvaez. She evaluated the wound. Recommendation is for removal of her sutures debridement of the necrotic area washout and placement of a wound VAC. We will then plan on consult in the wound care clinic for continued dressing changes and VAC changes. She will then follow the patient through the wound care clinic and if she ends up needing skin grafting she can reschedule at a later date once she has some granulation tissue. Plan will be I&D of the wound and VAC placement. Medication Reconciliation Continued Medications: Flecainide (Tambocor) 100 Mg Tab 100 MG PO BID, TAB Furosemide (Lasix) 40 Mg Tab 40 MG PO DAILY PRN for SWELLING, TAB Lorazepam (Ativan) 0.5 Mg Tab 0.5 MG PO TID PRN for Sleep, TAB Magnesium Oxide (Mag-Ox) 400 Mg Tab 400 MG PO QAM, TAB Metformin Hcl (Glucophage) 500 Mg Tab 500 MG PO BID, TAB Metoprolol Tartrate (Lopressor) (Lopressor) 50 Mg Tab 50 MG PO BID, TAB Multivitamin (Multivitamin) Tab 1 TAB PO QAM, TAB Rivaroxaban (Xarelto) 15 Mg Tab 15 MG PO BID for 21 Days, #42 Triamterene/Hctz (Maxzide 75MG/50MG) Tab 1 TAB PO QAM, TAB Discharge Exam Review of Systems: Constitutional: No fever, No chills Respiratory: No cough, No sputum Abdomen: No pain Neurologic: No memory loss, No paralysis Integumentary: No rash, No itch Physical Exam: General Appearance: WD/WN, no apparent distress Neck: supple, no adenopathy Respiratory/Chest: chest non-tender, lungs clear Cardiovascular: regular rate, rhythm, no edema Abdomen / GI: normal bowel sounds, non tender, soft Extremities: + pertinent finding (left lower leg with wound vac ) Lymphatic: no adenopathy Hospital Course 67 years old female with past medical history of paroxysmal atrial fibrillation , diabetes mellitus type 2, hypertension and obesity. Patient was bitten by a neighbor's dog on February 01 and presented for wound cleaning and closure. She wasn't Augmentin as an outpatient. Unfortunately developed pulmonary embolism and was started on Xarelto. she went to wound care appointment 02/08 and was sent back to the ED because the wound is infected Assessment Infected dog bite left lower extremity, failed outpatient Augmentin Acute pulmonary embolism currently on Xarelto last taken was February 08 Paroxysmal atrial atrial fibrillation, taking flecainide for that and refused anticoagulation in the past Diabetes mellitus type 2 Hypertension Obesity Rash likely secondary to antibiotics Plan Orthopedic consult was appreciated, Dr. Damian's team performed I&D followed by wound VAC Dr. Mathis was consulted Considering future skin graft after finishing antibiotics Infectious disease consult appreciated, currently patient is on daptomycin and Zosyn initially However, developed rash, will change to levofloxacin after discussing with ID. This was later changed to a cephalosporin as levofloxacin is contraindicated ( day after discharge). Restarted Xarelto is on hold last taking was February 08. Risk is elevated based on chadsvasc score. discussed risk of xarelto failing due to BMI. patient is aware but wants to continue with it Continue home medication Obtain labs in a.m. IV fluids are stopped. 1) Wound infection following dog bite and surgical closure - as stated above. 2) PE - remains on Xarelto - may need to hold for surgical debridement at discretion of orthopedist. On heparin drip 3) PAF - currently in a sinus rhythm - cont Flecainide 4) DM II - Sliding scale provided 5) HTN - cont current meds Total Time Spent: Greater than 30 minutes This includes examination of the patient, discharge planning, medication reconciliation, and communication with other providers. Discharge Instructions Please refer to the electronic Patient Visit Report (Discharge Instructions) for additional information. Follow-Up as noted in discharge instructions
== END 2017-02-12 19:09 | disposition home health service (06) | DRG 570 ==
LOC: C.EDB 11:23 → C.MSN 13:51 → EDBEDREQ 14:26 → ENRESERV 15:18
PROVIDERS: ADMIT Internal Medicine; ATTEND Internal Medicine Sports Medicine
PROC: 0JBP0ZZ Excision of Left Lower Leg Subcutaneous Tissue and Fascia, Open Approach (ICD-10-PCS; principal; 2017-02-09 13:00)
DX: L08.9 Local infection of the skin and subcutaneous tissue, unspecified (principal); I26.99 Other pulmonary embolism without acute cor pulmonale; S81.802A Unspecified open wound, left lower leg, initial encounter; I10 Essential (primary) hypertension; E11.9 Type 2 diabetes mellitus without complications; I48.0 Paroxysmal atrial fibrillation; E66.9 Obesity, unspecified; Z91.19 Patient's noncompliance with other medical treatment and regimen

== ENCOUNTER → 2017-05-29 | Outpatient (CLI) | payer OTHER ==
[~2017-05-29] MED LIST changes: +AMOX500C3 PO; -AMOX500T PO; +BENZ100C84 PO; -HYDR-5688 PO; +PRED10TA PO; +RIVA1.5T PO; -XRL15 PO
--- NOTE | 2017-05-29 13:43 | DIAGNOSTIC IMAGING REPORT ---
R FOOT MIN 3 VIEWS ROUTINE CLINICAL HISTORY: Left foot pain COMPARISON: None. DISCUSSION: There is a talar beak. There is Achilles insertional spur and plantar calcaneal spur. There are no acute fractures. There are mild osteoarthritic changes the level the first metatarsal phalangeal joint. A mild deformity involving the proximal aspect of the proximal phalanx the fifth toe is felt to be chronic. There is dorsal soft tissue swelling. IMPRESSION: Mild degenerative change. No evidence of erosive disease. Calcaneal spurring. Dorsal soft tissue swelling. No acute fractures. Electronically signed by: Alex Branch M.D. 05/29/2017 1:41 PM Dictated Date/Time: 05/29/2017 1:40 PM
--- NOTE | 2017-05-29 13:44 | DIAGNOSTIC IMAGING REPORT ---
LEFT FOOT 3 VIEWS CLINICAL HISTORY: Left foot pain. FINDINGS: 3 views of the left foot are obtained. No prior studies are available for comparison at the time of dictation. The skeletal structures are osteopenic. No fracture is seen. There are large dorsal and plantar calcaneal enthesophytes. Pes planus is noted. Degenerative spurring is seen along the dorsal aspect of the tarsal bones. Mild arthritic change is seen at the first tarsometatarsal articulation. An os naviculari is incidentally noted. Soft tissue edema is present throughout the foot. IMPRESSION: 1. Soft tissue swelling with no radiographic evidence of left foot fracture. 2. Osteopenia, pes planus, arthritic change, and large heel spurs as above. Electronically signed by: Chad Doe M.D. 05/29/2017 1:43 PM Dictated Date/Time: 05/29/2017 1:41 PM
== END | disposition home or self-care (01) ==
LOC: C.RADPV 13:14
PROVIDERS: ATTEND Family Medicine
DX: M79.672 Pain in left foot (principal); M85.872 Other specified disorders of bone density and structure, left ankle and foot; M21.42 Flat foot [pes planus] (acquired), left foot; M77.32 Calcaneal spur, left foot; M77.31 Calcaneal spur, right foot

== ENCOUNTER → 2017-08-08 | Outpatient (CLI) | payer OTHER ==
[2017-08-08 18:06] LABS: BLOOD UREA NITROGEN 23 mg/dl (7-18); CALCIUM 8.8 mg/dl (8.5-10.1); CARBON DIOXIDE 29 mmol/L (21-32); CHOLESTEROL 204 mg/dl (0-200); GLUCOSE 89 mg/dl (70-99); LDL CHOLESTEROL CALCULATED 117 mg/dl; SODIUM 137 mmol/L (136-145)
[2017-08-09 07:03] LABS: HEMOGLOBIN A1C 6.1 % (4.5-5.6)
== END | disposition home or self-care (01) ==
LOC: C.LABPVFM 15:47
PROVIDERS: ATTEND Nurse Practitioner
DX: I10 Essential (primary) hypertension (principal); E78.5 Hyperlipidemia, unspecified; E55.9 Vitamin D deficiency, unspecified; E11.9 Type 2 diabetes mellitus without complications

== ENCOUNTER 2017-12-11 20:16 | Emergency (ER) | payer OTHER ==
[~2017-12-11] VITALS: Ht 167.6 cm; Wt 117.3 kg
[2017-12-11 20:21] VITALS: TEMP 36.9; Ht 167.6 cm; Wt 117.3 kg
[2017-12-11 20:45] VITALS: O2SAT 96
[2017-12-11 21:22] LABS: BASO % 0.7 %; BASO ABS # 0.06 K/uL (0-0.2); EOS % 2.1 %; EOS ABS # 0.17 K/uL (0-0.5); HEMATOCRIT 43.6 % (37-47); HEMOGLOBIN 14.6 g/dL (12.0-16.0); IG# 0.02 K/uL (0.00-0.02); LYMPH ABS # 2.45 K/uL (1.2-3.4); MEAN CORPUSCULAR HEMOGLOBIN 31.8 pg (25-34); MEAN CORPUSCULAR HGB CONC 33.5 g/dl (32-36); MEAN PLATELET VOLUME 12.1 fL (7.4-10.4); MONO % 7.5 %; MONO ABS # 0.61 K/uL (0.11-0.59); NEUT % 59.5 %; NEUT ABS # 4.87 K/uL (1.4-6.5); PLATELET COUNT 327 K/uL (130-400); RED CELL DISTRIBUTION WIDTH CV 13.2 % (11.5-14.5); RED CELL DISTRIBUTION WIDTH SD 45.8 fL (36.4-46.3); WHITE BLOOD COUNT 8.18 K/uL (4.8-10.8)
--- NOTE | 2017-12-11 21:23 | EMERGENCY ROOM VISIT NOTE ---
History Report prepared by Santiago: Gaby Mckeon Under the Supervision of: Dr. Pawel Mcelroy M.D. First contact with patient: 20:47 Chief Complaint: IRREGULAR HEARTBEAT Stated Complaint: HEART ARRHYTHMIA History of Present Illness The patient is a 67 year old white female with a past medical history of irregular heartbeat and hysterectomy who presents to the ED with a cc of an episode of irregular heart rhythm beginning this afternoon. She notes her symptoms have resolved following 2 of her normal Flecainide. The patient reports she takes Xarelto, Metoprolol, Trimedyne, Metformin. The patient denies recent increase in stress or recent changes in sleep or caffeine intake. She also denies recent increase of her chronic leg swelling. The patient sees Dr. Bauer as her woods rider. Source of History: patient Onset: this afternoon Position: chest Quality: other (irregular heart rhythm) Timing: other (episode) Modifying Factors (Relieving): other (Flecainide) Note: Denies: increased leg swelling Review of Systems See HPI for pertinent positives and negatives. A total of ten systems were reviewed and were otherwise negative. Past Medical & Surgical Medical Problems: (1) Dog bite (2) Wound infection Family History No significant family history Social History Smoking Status: Never Smoker Drug Use: none Marital Status: Housing Status: lives with significant other Occupation Status: employed Current/Historical Medications Scheduled Flecainide (Tambocor), 100 MG PO BID Magnesium Oxide (Mag-Ox), 400 MG PO QAM Metformin Hcl (Glucophage), 500 MG PO BID Metoprolol Tartrate (Lopressor) (Lopressor), 50 MG PO BID Multivitamin (Multivitamin), 1 TAB PO QAM Rivaroxaban (Xarelto), 15 MG PO DAILY Triamterene/Hctz (Maxzide 75MG/50MG), 1 TAB PO QAM Scheduled PRN Furosemide (Lasix), 40 MG PO DAILY PRN for SWELLING Lorazepam (Ativan), 0.5 MG PO TID PRN for Sleep Allergies Coded Allergies: Flecainide (Unverified Allergy, Unknown, RASH, 12/11/17) Levofloxacin (Verified Adverse Reaction, Unknown, interacts with flecainide, 12/11/17) Physical Exam Vital Signs Date Time Temp Pulse Resp B/P (MAP) Pulse Ox O2 Delivery O2 Flow Rate FiO2 12/11/17 22:28 58 19 143/82 96 12/11/17 20:45 96 Room Air 12/11/17 20:36 65 12/11/17 20:21 36.9 69 16 172/88 95 Room Air Physical Exam GENERAL: Awake, alert, well-appearing, NAD HENT: Normocephalic, atraumatic. EYES: Normal conjunctiva. Sclera non-icteric. PERRL. No anisocoria. NECK: Supple. No nuchal rigidity. FROM. RESPIRATORY: CTAB, no rhonchi, wheezing, crackles CARDIAC: RRR, no MRG ABDOMEN: Soft, NTND, BS+ MSK: No chest wall TTP, trace pretibial edema bilaterally. NEURO: GCS 15, CN 2-12 intact, moves all 4s on command SKIN: No rash or jaundice noted. Medical Decision & Procedures ER Provider Diagnostic Interpretation: Radiology results as stated below per my review and radiologist interpretation: CHEST ONE VIEW PORTABLE CLINICAL HISTORY: Weakness COMPARISON STUDY: October 2010 FINDINGS: The cardiac and mediastinal contours are normal. There is no evidence of focal pulmonary consolidation. There is no evidence of failure. No pleural effusions are visualized.[ Increased density at the level of the left lower hemithorax is felt to be secondary to overlying breast implant. There are surgical clips project over the right breast. IMPRESSION: No active disease in the chest. Electronically signed by: Alex Branch M.D. 12/11/2017 9:44 PM Dictated Date/Time: 12/11/2017 9:43 PM Laboratory Results 12/11/17 20:50 Red Blood Count 4.59, Mean Corpuscular Volume 95.0, Mean Corpuscular Hemoglobin 31.8, Mean Corpuscular Hemoglobin Concent 33.5, Mean Platelet Volume 12.1, Neutrophils (%) (Auto) 59.5, Lymphocytes (%) (Auto) 30.0, Monocytes (%) (Auto) 7.5, Eosinophils (%) (Auto) 2.1, Basophils (%) (Auto) 0.7, Neutrophils # (Auto) 4.87, Lymphocytes # (Auto) 2.45, Monocytes # (Auto) 0.61, Eosinophils # (Auto) 0.17, Basophils # (Auto) 0.06 12/11/17 20:50 Test 12/11/17 20:50 White Blood Count 8.18 K/uL (4.8-10.8) Red Blood Count 4.59 M/uL (4.2-5.4) Hemoglobin 14.6 g/dL (12.0-16.0) Hematocrit 43.6 % (37-47) Mean Corpuscular Volume 95.0 fL (80-100) Mean Corpuscular Hemoglobin 31.8 pg (25-34) Mean Corpuscular Hemoglobin Concent 33.5 g/dl (32-36) Platelet Count 327 K/uL (130-400) Mean Platelet Volume 12.1 fL (7.4-10.4) Neutrophils (%) (Auto) 59.5 % Lymphocytes (%) (Auto) 30.0 % Monocytes (%) (Auto) 7.5 % Eosinophils (%) (Auto) 2.1 % Basophils (%) (Auto) 0.7 % Neutrophils # (Auto) 4.87 K/uL (1.4-6.5) Lymphocytes # (Auto) 2.45 K/uL (1.2-3.4) Monocytes # (Auto) 0.61 K/uL (0.11-0.59) Eosinophils # (Auto) 0.17 K/uL (0-0.5) Basophils # (Auto) 0.06 K/uL (0-0.2) RDW Standard Deviation 45.8 fL (36.4-46.3) RDW Coefficient of Variation 13.2 % (11.5-14.5) Immature Granulocyte % (Auto) 0.2 % Immature Granulocyte # (Auto) 0.02 K/uL (0.00-0.02) Prothrombin Time 9.9 SECONDS (9.0-12.0) Prothromb Time International Ratio 0.9 (0.9-1.1) Activated Partial Thromboplast Time 26.1 SECONDS (21.0-31.0) Partial Thromboplastin Ratio 1.0 Anion Gap 8.0 mmol/L (3-11) Est Creatinine Clear Calc Drug Dose 70.5 ml/min Estimated GFR () 68.2 Estimated GFR (Non- 58.9 BUN/Creatinine Ratio 25.5 (10-20) Calcium Level 8.9 mg/dl (8.5-10.1) Phosphorus Level 2.5 mg/dl (2.5-4.9) Magnesium Level 2.0 mg/dl (1.8-2.4) Thyroid Stimulating Hormone (TSH) 2.680 uIu/ml (0.300-4.500) Laboratory results reviewed by me ECG Per My Interpretation Rate (beats per minute): 66 Rhythm: normal sinus Findings: Q waves (Inferior), T-wave inversion (V2, V2), left axis deviation Comparison ECG Date: 04/17/10 Change: no significant change ED Course 2058: The patient was evaluated in room C11. A complete history and physical exam was performed. 2157: Discussed the patient's case with Dr. Huff, woods rider. He recommends continuation of her current medication. 2201: I reevaluated the patient. Discussed results and discharge instructions: she verbalized understanding and agreement. The patient is ready for discharge. Medical Decision Nursing notes reviewed. Ancillary studies and prior records reviewed. The patient is a 67 year old white female with a past medical history of irregular heartbeat and hysterectomy who presents to the ED with a cc of an episode of irregular heart rhythm beginning this afternoon. Differential diagnosis: Etiologies such as premature contractions, electrolyte abnormality, cardiac dysrhythmia, thyroid dysfunction, pulmonary embolism, infection, gastrointestinal, as well as others were entertained. Patient was seated evaluated the bedside. The patient was complaining some palpitations. She states that she has had episodic bouts of atrial fibrillation. At baseline the patient does take metoprolol as well as flecainide. The patient is on blood thinning medication. The patient denies any recent changes, stressors, caffeine, stimulants, or weight loss medications. Patient denies any history of thyroid issues. Initial EKG shows that the patient is in normal sinus rhythm. She did have blood work obtained. Patient's electrolytes are normal. Her troponin was not obtained at this time as the patient lacks any chest pains. Patient's chest x- ray was unremarkable. Given that everything looks well and the patient has been asymptomatic since presentation I did discuss her case with the on-call woods rider who recommended to continue take her medications as prescribed and to follow-up as already scheduled and to return if she has any worsening symptoms. Patient was given strict follow-up, discharge, and return precautions. All questions were answered. Patient was deemed suitable for outpatient follow-up at this time. Patient agreed with the plan of care and was safely discharged home. Medication Reconcilliation Current Medication List: was personally reviewed by me Blood Pressure Screening Patient's blood pressure: Elevated blood pressure Blood pressure disposition: Referred to PCP Consults Time Called: 2152 Consulting Physician: Dr. Huff, woods rider Returned Call: [phone] Discussed the patient's case with Dr. Huff, woods rider. He recommends continuation of her current medication. Impression Primary Impression: Palpitations Additional Impression: Paroxysmal atrial fibrillation Scribe Attestation The scribe's documentation has been prepared under my direction and personally reviewed by me in its entirety. I confirm that the note above accurately reflects all work, treatment, procedures, and medical decision making performed by me. Departure Information Dispostion Home / Self-Care Referrals Monika Loco C.R.N.P (PCP) Forms HOME CARE DOCUMENTATION FORM, IMPORTANT VISIT INFORMATION Patient Instructions ED Palpitations, My [facility] Additional Instructions Please return to the emergency department if you have worsening or recurrent symptoms not amenable to at-home treatment. Please call for a follow-up appointment with her primary care physician. Please take your medications as prescribed. If you have other concerns and/or complaints please feel free to also call your primary care physician's office or return the ED for further evaluation, management, and treatment. You may take tylenol 650 mg every 6 hours as needed for pain/fever unless told by your physician to not take it or have liver problems. Please follow-up with your woods rider as needed. Take your medications as prescribed. You have been examined and treated today on an emergency basis only. This is not a substitute for, or an effort to provide, complete comprehensive medical care. It is impossible to recognize and treat all injuries or illnesses in a single emergency department visit. It is therefore important that you follow up closely with [facility], your PCP, and/or your specialist(s). Call as soon as possible for an appointment. Thank you for your time and consideration. I look forward to speaking with you again soon. Please don't hesitate to call us if you have any questions. Problem Qualifiers
[2017-12-11 21:34] LABS: INR 0.9 (0.9-1.1); PTT PATIENT 26.1 SECONDS (21.0-31.0)
--- NOTE | 2017-12-11 21:45 | DIAGNOSTIC IMAGING REPORT ---
CHEST ONE VIEW PORTABLE CLINICAL HISTORY: Weakness COMPARISON STUDY: October 2010 FINDINGS: The cardiac and mediastinal contours are normal. There is no evidence of focal pulmonary consolidation. There is no evidence of failure. No pleural effusions are visualized.[ Increased density at the level of the left lower hemithorax is felt to be secondary to overlying breast implant. There are surgical clips project over the right breast. IMPRESSION: No active disease in the chest. Electronically signed by: Alex Branch M.D. 12/11/2017 9:44 PM Dictated Date/Time: 12/11/2017 9:43 PM
[2017-12-11 21:46] LABS: CALCIUM 8.9 mg/dl (8.5-10.1); CREATININE 0.98 mg/dl (0.60-1.20); PHOSPHORUS 2.5 mg/dl (2.5-4.9); POTASSIUM 3.8 mmol/L (3.5-5.1)
[2017-12-11 22:28] VITALS: BP 143/82; PULSE 58; O2SAT 96
== END 2017-12-11 22:29 | disposition home or self-care (01) ==
LOC: C.EDB 20:17 → C.EDC 22:29
DX: R00.2 Palpitations (principal); I48.91 Unspecified atrial fibrillation; Z88.8 Allergy status to other drugs, medicaments and biological substances

== ENCOUNTER 2024-04-24 13:46 | Inpatient (IN) ==
--- NOTE | 2024-04-24 13:55 | Emergency Department Note ---
Impression & Plan Back pain hand off ED Provider Note HPI: History obtained from Patient. The patient is a 74-year-old female with history of CVA in March 2024 ultimately requiring thrombectomy, patient has resumed anticoagulation with Eliquis as of 04/13/2024, [facility], patient is with right-sided residual deficits and significant speech abnormality/aphasia, who presents with EMS over concern for "muscle spasms". Per EMS report the patient has had some increased spasms in her back and lower extremities that been treated at [facility] with baclofen. On arrival here to the ED, the patient is able to answer questions with head nodding. She admits to pain in the right lower back but denies pain in the abdomen, she denies pain in the left lower extremity but states she is having some pain in the right lower extremity.Patient arrives with paperwork from [facility] requesting CT imaging of the lumbar spine as well as CT imaging of the abdomen and pelvis. ROS: - Per HPI Differential Diagnosis: Muscle spasms in the setting of previous CVA with right-sided paralysis, critical electrolyte abnormalities, acute kidney injury/dehydration, degenerative disease of the lumbar spine with radiculopathy, amongst other potential pathologies. *Outpatient medications and allergy history reviewed. PE: General: Alert HEENT: Normocephalic, trachea midline Eyes: Extraocular eye movement is intact, no scleral erythema Pulmonary: Clear to auscultation bilaterally, no wheezing Cardio: Regular rate and irregular rhythm GI: Abdomen is soft to palpation : No suprapubic tenderness MSK: No evidence of trauma or malformation of the extremities, no edema, R ankle boot in place Skin: There is a large patch of blanchable erythema to the left lower quadrant of the abdomen without any skin peeling or blister formation, otherwise no evidence of rash Neuro: Baseline right-sided deficits with R UE contracture from previous CVA, severe aphasia, otherwise alert, no new focal deficits Psychiatric: Cooperative INDEPENDENT INTERPRETATIONS: ekg monitor tech: (As interpreted by myself): - An order was placed for continuous cardiac monitoring - Patient was noted to be in atrial fibrillation with a rate of 75 EKG: (As interpreted by myself): Rate: 81 Rhythm: Atrial fibrillation Intervals: QRS 148 ms, QTc [address] changes: No ST elevation Time: 1421 Interventions provided in ED: -IV morphine, IV Zofran Medical Decision Making: Shortly after the patient arrived IV was established and lab work ordered, patient was placed on court recording monitor. I did discuss patient's presentation with the RN taking care of the patient at [facility], Chad, and he does state that the patient was having spasms mostly in the right side of her body and she was sent to the ER to be evaluated for CT imaging of the abdomen pelvis as well as CT imaging of the lumbar spine to ensure there was no other pathology is potentially the source of her right-sided pain. He states they have been using baclofen 3 times daily at the facility without resolution of her intermittent pain/muscle spasms. Lab work shows no leukocytosis, hemoglobin is normal, platelet count is normal, CMP does not show any evidence of any critical abnormalities. Urinalysis does not show any evidence of obvious infection although 2+ leukocyte esterase with some pyuria, will send for culture.CT imaging of the abdomen pelvis as well as CT imaging of the lumbar spine were obtained. CT AP shows some R sided hydronephrosis without obvious stone. Constipation/fecaloma also noted. Patient does not have R flank tenderness on my exam. I suspect this hydronephrosis is secondary to stool burden as it occurs at the level of dilated rectum per radiology. CT lumbar spine shows degenerative changes with osteophytes impinging upon thecal sac and neural foraminal recesses. Recommendation was made for MRI lumbar spine by the radiologist that interpreted the scan. I discussed the above findings with the patient and her over the phone. They are agreeable for MRI for further evaluation given the patient's difficulty with pain control at [facility]. I do not feel that she would be a good surgical candidate however further diagnostic imaging would be of benefit to determine this given the patient's pain. Case was discussed with my colleague, Dr. Jones, and he will follow up on the patient's MRI lumbar spine for final disposition. Diagnosis: 1. Back pain, acute 2. R LE pain, acute 3. Lumbar disc herniations on CT L spine 4. History of CVA with R sided deficits and aphasia 5. Constipation Disposition: Signed Out Rohan Contreras DO Emergency Medicine Past Med/Surg History Problem List (Updated 04/24/24 @ 19:13 by Rohan Contreras DO) Back pain (Acute) Abnormal findings on diagnostic imaging of limbs Edema of left lower extremity History of breast cancer dx'd 1993 BL - lumpectomy + radiation recurrence 1999 Rt breast - Rt mastectomy recurrence 2004 Lt breast - Lt mastectomy History of uterine cancer 2011 - treated surgically History of skin cancer removed Abnormal x-ray of knee Left knee pain Gout Hair loss History of colon polyps Encounter for pre-operative examination Statin intolerance Vitamin D deficiency (Chronic) Venous insufficiency (Chronic) Type 2 diabetes mellitus without complication (Chronic) Peripheral edema (Chronic) Insomnia (Chronic) Hypertension (Chronic) Hyperlipidemia (Chronic) Diabetic neuropathy (Chronic) Depression with anxiety (Chronic) Atrial fibrillation (Chronic) Medical History Osteomyelitis of third toe of left foot Fear of needles On anticoagulant therapy History of cardioversion Limb alert care status History of pulmonary embolism Atrial fibrillation Tubular adenoma of colon Diverticulosis of intestine Surgical History History of toe surgery History of lumpectomy of both breasts History of surgery History of tonsillectomy History of hernia surgery History of breast biopsy History of colonoscopy History of total abdominal hysterectomy and bilateral salpingo-oophorectomy History of modified radical mastectomy of both breasts History of hysteroscopy History of dilation and curettage Status post debridement History of breast reconstruction Family History Father Prostate cancer Family/Other Myocardial infarction Denies family history of Ovarian cancer Breast cancer Colorectal cancer Social History Smoking Status: Former smoker Second Hand Exposure: No; Do You Dip or Chew Tobacco: No; Hx Alcohol Use: No Hx Substance Use: No Preferred Language: Botswanan Communication Ability: Effective Visual Impairment: No Limitations Hearing Ability: Normal Bariatric Program Coordinator Required: No Beliefs That Will Affect Care: None marital status: Current Living Situation: Spouse current occupational status: retired 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 How many Children do You have: 2 Feels Safe at Home: Yes Childhood Exposure to Second-Hand Smoke: No Diet: diabetic caffeine: Yes Dental Care, Regularly: Yes Physical Activity Frequency: Daily Seatbelt Use: always Sunscreen Use: No Assistive Devices: None Allergies Allergies Allergy/AdvReac Type Severity Reaction Status Date / Time levofloxacin Allergy Severe Rash Verified 02/27/24 14:52 Home Meds Home Medications Medication Instructions Recorded Confirmed flecainide 100 mg tablet 100 mg PO Q12H 12/25/18 02/27/24 furosemide 40 mg tablet 40 mg PO DAILY PRN Edema 12/28/18 02/27/24 triamterene 75 1 tab PO DAILY PRN NEEDED 12/28/18 02/27/24 mg-hydrochlorothiazide 50 mg tablet multivitamin 1 tab PO QAM 01/21/22 02/27/24 potassium chloride 10 mEq 10 meq PO 3XWK 01/21/22 02/27/24 tablet,extended release vitamin B complex 1 cap PO QAM 01/21/22 02/27/24 magnesium 250 mg tablet 500 mg PO DAILY 06/26/23 02/27/24 nervive PO DAILY 06/26/23 01/06/24 Previous Rx's Medication Instructions Recorded metoprolol tartrate 50 mg tablet 50 mg PO Q12H #180 tabs 11/29/19 rivaroxaban 15 mg tablet (Xarelto) 15 mg PO QAM #90 tabs 03/18/23 nystatin 100,000 unit/gram topical 1 applic topical BID PRN rash #30 04/23/23 cream grams allopurinol 300 mg tablet 300 mg PO DAILY #135 tabs 07/14/23 metformin 500 mg tablet,extended 1,000 mg (2 x 500 mg) PO BID #360 09/04/23 release 24 hr tabs colchicine 0.6 mg tablet 0.6 mg PO .COMPLEX PRN gout flare 11/05/23 #90 tabs lorazepam 0.5 mg tablet 0.5 mg PO DAILY PRN anxiety #20 02/23/24 tabs Results & Data (ED) Vital Signs Vital Signs - 24 hr 04/24/24 13:53 04/24/24 14:07 04/24/24 15:00 Temperature 36.5 C Temperature Source Oral Pulse Rate 103 H Pulse Rate [Apical] 80 Pulse Rhythm [Apical] Irregular Respiratory Rate 18 24 Respiratory Effort / Characteristics Non-Labored Spontaneous Respiratory Depth Normal Normal Respiratory Pattern Regular Blood Pressure 120/48 L Blood Pressure [Left Arm] 104/83 Blood Pressure Mean 72 Blood Pressure Mean [Left Arm] 90 Pulse Oximetry 94 99 Oxygen Delivery Method Room Air Room Air Room Air Sepsis Recent Fever Within 48 Hours No Sepsis New/Unexplained Change in Mental Status No Sepsis Action Taken by Nursing No Action Required 04/24/24 15:51 04/24/24 17:00 Temperature Temperature Source Pulse Rate 73 Pulse Rate [Apical] 75 Pulse Rhythm [Apical] Respiratory Rate 18 Respiratory Effort / Characteristics Respiratory Depth Respiratory Pattern Blood Pressure Blood Pressure [Left Arm] 132/62 Blood Pressure Mean Blood Pressure Mean [Left Arm] 85 Pulse Oximetry 96 Oxygen Delivery Method Sepsis Recent Fever Within 48 Hours Sepsis New/Unexplained Change in Mental Status Sepsis Action Taken by Nursing Laboratory Data 04/24/24 14:50 04/24/24 14:50 Lab Results 04/24/24 04/24/24 Range/Units 14:50 15:31 WBC 7.44 (4.8-10.8) K/ul RBC 4.33 (4.20-5.40) M/uL Hgb 13.6 (12.0-16.0) g/dl Hct 40.6 (37.0-47.0) % MCV 93.8 (80.0-100.0) fL MCH 31.4 (25.0-34.0) pg MCHC 33.5 (32.0-36.0) g/dL RDW Std Deviation 47.9 H (36.4-46.3) fL RDW Coeff of Linda 14.0 (11.5-14.5) % Plt Count 320 (130-400) K/uL MPV 11.1 (9.4-12.4) fL Immature Gran % (Auto) 0.3 % Neut % (Auto) 69.2 % Lymph % (Auto) 22.4 % [place] % (Auto) 6.9 % Eos % (Auto) 0.7 % Baso % (Auto) 0.5 % Neut # (Auto) 5.15 (1.40-6.50) K/uL Lymph # (Auto) 1.67 (1.20-3.40) K/uL [place] # (Auto) 0.51 (0.11-0.59) K/uL Eos # (Auto) 0.05 (0.00-0.50) K/uL Baso # (Auto) 0.04 (0.00-0.20) K/uL Immature Gran # (Auto) 0.02 (0.01-0.20) K/uL PT 10.4 (9.0-12.0) Seconds INR 1.0 (0.9-1.1) Sodium 138 (136-145) mmol/L Potassium 4.1 (3.5-5.1) mmol/L Chloride 104 (98-107) mmol/L Carbon Dioxide 29 (21-32) mmol/L Anion Gap 5 (3-11) BUN 20 (6-23) mg/dl Creatinine 0.62 (0.6-1.2) mg/dl Est Cr Clr Drug Dosing 100.3 ml/min eGFR 92.24 BUN/Creatinine Ratio 32.3 H (10-20) Glucose 160 H (70-99(Fasting)) mg/dl Calcium 8.4 L (8.6-10.3) mg/dl Total Bilirubin 0.4 (0.2-1.0) mg/dl AST 18 (13-39) U/L ALT 22 (7-52) U/L Alkaline Phosphatase 97 (34-104) U/L Total Protein 5.6 L (6.0-8.3) gm/dl Albumin 3.0 L (3.4-5.0) gm/dl Globulin 2.6 (2.5-4.0) gm/dl Albumin/Globulin Ratio 1.2 (0.9-2) Lipase 23 (11-82) U/L Urine Color Yellow Urine Appearance Clear (Clear) Urine pH 7.5 (4.5-7.5) Ur Specific [place] 1.013 (1.000-1.030) Urine Protein Negative (Negative) Urine Glucose (UA) Negative (Negative) Urine Ketones Negative (Negative) Urine Blood Negative (Negative) Urine Nitrite Negative (Negative) Urine Bilirubin Negative (Negative) Urine Urobilinogen Negative (Negative) Ur Leukocyte Esterase 2+ H (Negative) Urine WBC (Auto) 11-20 H (0-5) /hpf Urine RBC (Auto) 3-5 H (0-2) /hpf U Hyaline Cast (Auto) 0-2 (0-2) /lpf U Epithel Cells (Auto) 0-2 (0-2) /hpf Urine Bacteria (Auto) None Seen (None Seen) Administered Medications Discontinued Medications Sodium Chloride (Nss) 1,000 mls @ 999 mls/hr IV .Q1H1M ONE Stop: 04/24/24 14:54 Last Infusion: 04/24/24 17:02 Dose: Infused Documented By: Admin: 04/24/24 14:58 Dose: 999 mls/hr Documented By: CAMERON Ioversol (Optiray 320 100ml) 92 ml IV ONCE ONE Stop: 04/24/24 16:46 Last Admin: 04/24/24 16:45 Dose: 92 ml Documented By: ALO Morphine Sulfate (Morphine Sulfate 4 Mg/Ml 1 Ml Carp\\Vial) 4 mg IV NOW STA Stop: 04/24/24 14:03 Last Admin: 04/24/24 14:58 Dose: 4 mg Documented By: CAMERON Morphine Sulfate (Morphine Sulfate 4 Mg/Ml 1 Ml Carp\\Vial) 4 mg IV NOW STA Stop: 04/24/24 17:13 Last Admin: 04/24/24 17:56 Dose: 4 mg Documented By: GIO Ondansetron HCl (Ondansetron Inj 2 Mg/Ml 2 Ml Vial) 4 mg IV NOW STA Stop: 04/24/24 14:03 Last Admin: 04/24/24 14:58 Dose: 4 mg Documented By: CAMERON Imaging Data Radiologist's Impression: Abdomen/Pelvis CT 04/24/24 13:53 EXAM: CT abd pelvis IV con only CLINICAL HISTORY: Back pain/spasms. TECHNIQUE: CT of the abdomen and pelvis was performed with contrast 92 ml Optiray 320, with the following protocol: axial images with, and reconstructed coronal and sagittal images. One of the following dose reduction techniques was utilized for this exam: Automated exposure control, adjustment of the mA and/or kV according to patient size, and use of iterative reconstruction. COMPARISON: No prior studies available for comparison. FINDINGS: Lung bases: Mild bilateral pleural thickening. Subsegmetal atelectasis in the left lung base. Abdomen: Liver: Normal in size, shape, and density. No focal lesions, cysts, or masses were identified. Hepatic vasculature and biliary ducts are unremarkable. Gallbladder and Biliary System: The gallbladder is normal in size and shape. No wall thickening, pericholecystic fluid, or gallstones were identified. The common bile duct is normal in caliber without dilation. Pancreas: Pancreatic head, body, and tail are visualized and appear normal in size and density. No pancreatic masses or calcifications were noted. The pancreatic duct is not dilated. Spleen: Normal in size, shape, and density. No splenic lesions or masses were identified. Kidneys and Adrenal Glands: Both kidneys are normal in size, shape, and position. Cortical thickness is within normal limits. No renal calculi Mild right hydroureteronephrosis down to the mid pelvic ureter at the level of the distended rectum with no detected stones further postcontrast study with delayed images is advised for better evaluation The lateral limb of the left adrenal gland appears nodular. The right adrenal gland is normal. Pelvis: Urinary Bladder: Underfilled. Barry catheter is situ. Uterus: Not seen. Ovaries: Not well visualized but no gross abnormalities noted. Vagina: Normal in contour and wall thickness. Cervix: No evidence of mass or abnormal thickening. Peritoneal and Retroperitoneal Structures: No free fluid or abnormal fluid collections were identified within the abdomen or pelvis. No lymphadenopathy was noted. Bowel: Fecal loaded colon. Dilated rectum which is seen distended with fecaloma with associated mild mural thickening of a stool and mild perirectal fat stranding , suggesting Stercoral colitis, clinical correlation is advised The rest of the visualized bowel loops are normal in caliber and appearance. No evidence of bowel obstruction or wall thickening. Bones and Soft Tissues: Lower thoracic and lumbar levoscoliosis. Severe degenerative changes of the lumbar spine. Large anterior abdominal wall hernia herniating bowel loops with no signs of complications IMPRESSION: 1. Dilated rectum which is seen distended with fecaloma with associated mild mural thickening of a stool and mild perirectal fat stranding , suggesting Stercoral colitis, clinical correlation is advised. 2. Mild right hydroureteronephrosis down to the mid pelvic ureter at the level of the distended rectum with no detected stones further postcontrast study with delayed images is advised for better evaluation. 3. The lateral limb of the left adrenal gland appears nodular. 4. Lower thoracic and lumbar levoscoliosis. 5. Severe degenerative changes of the lumbar spine. Electronically signed by Abdi Mcdaniel 04-24-2024 6:[address] 04/24/24 13:53 EXAM: CT lumbar spine w con CLINICAL HISTORY: back pain/spasms. TECHNIQUE: CT scan with contrast lumbar spine done. 92 ml Optiray 320 was administered for post contrast images. Axial images were obtained with reformatted coronal and sagittal images and submitted for interpretation. One of the following dose reduction techniques were utilized for this exam: Automated exposure control, adjustment of the mA and/or kV according to patient size, and use of iterative reconstruction. COMPARISON: None. FINDINGS: Vertebrae: Marked silicotic deformity to the left side. Partial fusion of L3 and L4 vertebral bodies. Osteopenia. Advanced spondylodegnerative changes are evidenced by a marked reduction in the height of scanned discs and vertebral end plates osteophytes. No fractures, lytic or sclerotic lesions. Multilevel disc herniations with osteophytes abutting the thecal sac and partially encroaching upon neural recesses and foramina. Bilateral multilevel facet joint arthropathy. Soft Tissues: L2/L3 anterior yolanda vertebral soft tissue lesion measuring 39X18 likely anterior disc herniation. No abnormal masses, fluid collections, or signs of inflammation. Vascular Structures: Normal appearance and enhancement of the abdominal aorta and other major vessels. No evidence of aneurysm, dissection, or significant atherosclerosis. N.B rectal fecaloma is noted with increased mural thickening and surrounding mild fat stranding Mild right hydronephrosis and hydroureter. Mild bilateral degenerative sacro-illitis IMPRESSION: 1. No acute fracture. 2. Osteopenia. 3. Marked scoliotic deformity to the left side. 4. Advanced spondylodegnerative Multilevel disc herniations with osteophytes abutting the thecal sac and partially encroaching upon neural recesses and foramina, further assessment by MRI is recommended. 5. Mild bilateral degenerative sacro-illitis. 6. rectal fecaloma with increased mural thickening and surrounding mild fat stranding suggestive of an associated mild inflammatory process. 7. Mild right hydronephrosis and hydroureter. 8. L2/L3 anterior yolanda vertebral soft tissue lesion measuring 39 X 18 likely anterior disc herniation. Electronically signed by Abdi Mcdaniel 04-24-2024 5:57 PM Femur X-Ray 04/24/24 17:11 INDICATION: Pain TECHNIQUE: 2 views of the right femur were obtained. COMPARISON: None FINDINGS: No displaced acute osseous process is identified. Evaluation of the upper segment of the femur somewhat limited due to overlying soft tissues and underpenetration. IMPRESSION: No displaced acute osseous process is identified. Evaluation of the upper segment of the femur somewhat limited due to overlying soft tissues and underpenetration. Electronically signed by Jose F Argueta 04-24-2024 6:14 PM Discharge Plan Visit Data Chief Complaint: Back Injury/Pain Stated Complaint: R LEG & BACK PAIN, MUSCLE SPASMS ED Provider: Chad Jones Discharge Problem: Back pain Forms Stand Alone Forms: [facility] Prescriptions Prescriptions: No Action metoprolol tartrate 50 mg tablet 50 mg PO Q12H Qty: 180 3RF Xarelto 15 mg tablet 15 mg PO QAM Qty: 90 3RF allopurinol 300 mg tablet 300 mg PO DAILY Qty: 135 2RF Rx Instructions: 1 and 1/2 tabs daily metformin 500 mg tablet extended release 24 hr 1,000 mg PO BID Qty: 360 3RF Rx Instructions: pt aware dose change colchicine 0.6 mg tablet 0.6 mg PO .COMPLEX PRN (Reason: gout flare) Qty: 90 0RF Rx Instructions: 0.6 mg orally tid and call office PRN; lorazepam 0.5 mg tablet 0.5 mg PO DAILY PRN (Reason: anxiety) Qty: 20 1RF flecainide 100 mg tablet 100 mg PO Q12H furosemide 40 mg tablet 40 mg PO DAILY PRN (Reason: Edema) triamterene-hydrochlorothiazid 75-50 mg tablet 1 tab PO DAILY MDD htn PRN (Reason: NEEDED) magnesium 250 mg tablet 500 mg PO DAILY nervive PO DAILY nystatin 100,000 unit/gram cream 1 applic topical BID PRN (Reason: rash) Qty: 30 5RF multivitamin Tablet 1 tab PO QAM potassium chloride 10 mEq Tablet Extended Release 10 meq PO 3XWK vitamin B complex Capsule 1 cap PO QAM Referrals Referrals: Monika Loco CRNP [Primary Care Provider] -
--- OUTSIDE RECORDS SUMMARY | 2024-04-24 13:56 | External Medical Summary ---
Author Name Unknown Address Unknown Organization K09:[facility] [place] [place] [address] Laboratory Report Ordering Provider Test Date Status LUDWIG JAIN 04/09/2024 07:03:01 Final Observation Date Value Abnormality Reference (Units ) Status SYNC LEUKOCYTES IN BLOOD BY AUTOMATED COUNT 04/09/2024 07:03:01 10.11 4.00-10.80 (K/uL) Final Segs 04/09/2024 07:03:01 69.1 40.0-75.0 (%) Final Lymphs % 04/09/2024 07:03:01 22.4 18.0-42.0 (%) Final Monos 04/09/2024 07:03:01 7.1 1.0-11.0 (%) Final Eosinophils 04/09/2024 07:03:01 1.0 0.0-6.0 (%) Final Basos 04/09/2024 07:03:01 0.4 0.0-2.0 (%) Final Absolute Segs 04/09/2024 07:03:01 6.99 1.80-7.70 (K/uL) Final Lymphs, absolute 04/09/2024 07:03:01 2.26 1.00-4.80 (K/ul) Final Monos, Abs 04/09/2024 07:03:01 0.72 0.00-1.10 (K/uL) Final Eos, Abs 04/09/2024 07:03:01 0.10 0.00-0.70 (K/uL) Final Basos, Abs 04/09/2024 07:03:01 0.04 0.00-0.20 (K/uL) Final Performing Location [facility] [place] [place] [address]
--- OUTSIDE RECORDS SUMMARY | 2024-04-24 13:56 | External Medical Summary ---
Author Name Unknown Address Unknown Organization K09:[facility] [address] [place] [address] Laboratory Report Ordering Provider Test Date Status VIRGINIA COOPER 04/20/2024 02:10:00 Final Observation Date Value Abnormality Reference (Units ) Status Color of Urine by Auto 04/20/2024 02:10:00 Yellow Light Yellow, Yellow, Dark Yellow Final Clarity, Urine 04/20/2024 02:10:00 Slightly Cloudy Abnormal Clear Final Glucose [Mass/volume] in Urine by Automated test strip 04/20/2024 02:10:00 Negative Negative (mg/dL) Final Bilirubin.total [Presence] in Urine by Automated test strip 04/20/2024 02:10:00 Negative Negative Final Ketones [Mass/volume] in Urine by Automated test strip 04/20/2024 02:10:00 Negative Negative (mg/dL) Final Specific gravity, Urine 04/20/2024 02:10:00 1.015 1.003-1.030 Final Hemoglobin [Presence] in Urine by Automated test strip 04/20/2024 02:10:00 Moderate Abnormal Negative Final pH, Urine 04/20/2024 02:10:00 6.0 5.0-7.5 (Units) Final Protein [Mass/volume] in Urine by Automated test strip 04/20/2024 02:10:00 Trace Abnormal Negative (mg/dL) Final Urobilinogen [Mass/volume] in Urine by Automated test strip 04/20/2024 02:10:00 0.2 0.2, 1.0 (mg/dL) Final Nitrite [Presence] in Urine by Automated test strip 04/20/2024 02:10:00 Positive Abnormal Negative Final Leukocyte esterase [Presence] in Urine by Automated test strip 04/20/2024 02:10:00 Moderate Abnormal Negative Final RBC, Urine 04/20/2024 02:10:00 10-19 Abnormal 0-2 (/HPF) Final WBC, Urine 04/20/2024 02:10:00 50+ Abnormal 0-2 (/HPF) Final Bacteria [#/area] in Urine sediment by Microscopy high power field 04/20/2024 02:10:00 >200 Abnormal 0-25 (/HPF) Final Performing Location [facility] [address] [place] [address]
--- OUTSIDE RECORDS SUMMARY | 2024-04-24 13:56 | External Medical Summary | Summary of Care ---
Author Name Unknown Organization [facility] Address [address] [place] [address] Phone [phone] Care Team Providers Care Director Title Name Role Phone Monika Loco Primary Care Provide r Reason for Referral * Precert (Within 10 days (routine)) - Authorized Specialty Diagnoses / Procedures Referred By Contac t Referred To Contact Radiology Diagnoses Generalized abdominal pain Procedures CT ABDOMEN W WO IV CONTRAST - WO ORAL CONTRAST Radiology [address] [place] [address] Phone: tel: fax: Referral ID Status Reason Start Date Expiration Date V isits Requested Visits Authorized [id number] Authorized 04/19/2024 [id number] Encounter Details Date Type Department Care Team (Late st Contact Info) Description 04/19/2024 Orders Only Radiology [address] [place] [address] Requisition, External Radiology [address] [place] [address] Generalized abdominal pain* Allergies Active Allergy Reactions Criticality Noted Date Comments Levofloxacin Other (Please comment),Rash High 02/24/2017 Prolonged QT, interfered with Fleconide documented as of this encounter (statuses as of 04/19/2024) Medications LORAzepam (ATIVAN) 0.5 MG TabletIndications :Follow-up examination, following other surgery TAKE 1 TABLET BY MOUTH NEEDED FOR ANXIETY. 20 Tab 0 5 Active Multivitamin Adult Extra C Oral Tablet Chewable Take 1 Tablet by mouth in the morning. 2 Active Vitamin B Complex-C Oral Capsule Take 1 Capsule by mouth daily at noon. 2 Active Potassium Chloride Shaina ER 10 MEQ Oral Tablet Extended Release TAKE 1 TABLET BY MOUTH THREE TIMES A WEEK 40 Tablet 3 2 Active Colchicine 0.6 MG Oral Tablet Take 1 tablet by mouth three times daily as needed 90 Tablet 07/17/2023 3:22 PM EDT 3 Active Ezetimibe 10 MG Oral Tablet (Zetia)Indication s:Dyslipidemia, goal LDL below 100 Take 1 Tablet by mouth in the morning. 90 Tablet 3 11/28/2023 8:13 AM EDT 3 Active Furosemide 40 MG Oral Tablet (Lasix)Indication s:Paroxysmal atrial fibrillation (HCC),Stasis edema TAKE ONE TABLET BY MOUTH EVERY DAY NEEDED FOR SWELLING 100 Tablet 3 03/13/2024 9:15 AM EST 4 06/28/19 25 Active Allopurinol 300 MG Oral Tablet (Zyloprim) 300 mg orally daily; 1 and 1/2 tabs daily 135 Tablet 2 10/14/2023 5:33 PM EDT 4 Active Ketoconazole 2 % External Shampoo (Nizoral) Use as shampoo on scalp at least 3 times weekly, lather, wait 5 min, then rinse 120 mL 5 11/03/2023 2:18 PM EDT 4 Active metFORMIN HCl ER 500 MG Oral Tablet Extended Release 24 Hour (Glucophage XR) take 2 tablets by mouth twice daily 360 Tablet 3 02/03/2024 1:26 PM EDT 4 Active Fluocinonide 0.05 % External Solution Apply to scalp nightly as needed 60 mL 3 11/04/2023 5:47 PM EDT 4 Active Flecainide Acetate 100 MG Oral Tablet (Tambocor)Indicat ions:Paroxysmal atrial fibrillation (HCC),HTN, goal below 140/90 Take 1 Tablet by mouth in the morning and 1 Tablet before bedtime. 180 Tablet 3 04/03/2024 10:36 AM EST 4 Active metroNIDAZOLE 0.75 % External Cream (MetroCream) Apply to affected areas of the face daily for maintenance, twice daily for flares 45 g 3 01/08/2024 5:49 PM EDT 4 Active Hydrocortisone 2.5 % External Cream Apply to affected areas on face (alar creases, left lateral nasal root) twice daily as needed 60 g 3 01/08/2024 5:49 PM EDT 4 Active Magnesium 500 MG Oral Capsule Take 1 Capsule by mouth in the morning. Active Lisinopril 20 MG Oral Tablet (Prinivil) Take 1 Tablet by mouth in the morning. 60 Tablet 1 4 Active Metoprolol Tartrate 100 MG Oral Tablet (Lopressor) Take 1 Tablet by mouth in the morning and 1 Tablet before bedtime. 60 Tablet 1 4 Active Apixaban 5 MG Oral Tablet (Eliquis) Take 1 Tablet by mouth in the morning and 1 Tablet before bedtime. Do not start before April 13, 2024. 180 Tablet 2 4 Active documented as of this encounter (statuses as of 04/19/2024) Active Problems Problem Noted Date Diagnosed Date Gait abnormality 04/01/2024 Impaired mobility and ADLs 04/01/2024 Dysphagia due to recent stroke 04/01/2024 Acute ischemic left MCA stroke 03/30/2024 Right hemiparesis 03/30/2024 Mixed aphasia 03/30/2024 Hx of melanoma of skin 01/31/2023 Overview (01/31/2023): MIS/LM type, R upper back, 01/2023 Status post amputation of lesser toe of left alfred t 08/20/2022 Diabetic neuropathy 07/29/2022 Depression with anxiety 07/29/2022 Type 2 diabetes mellitus without complication Hyperlipidemia 07/29/2022 Hypertension 07/29/2022 Dyslipidemia, goal LDL below 70 04/30/2021 Statin intolerance 04/30/2021 HTN, goal below 140/90 09/21/2020 Hx of actinic keratosis 05/14/2017 Hx of nonmelanoma skin cancer 02/09/2010 Overview (05/06/2018): BCC L midback 04/2017, BCC L clavicle 2009 Obesity, morbid (more than 1 00 lbs over ideal weight or BMI > 40) 10/03/2009 Overview (07/10/2015): Per Obesity Protocol, #19 ICD-10 update of inactive term CHEST [id number] 12/17/2005 Atrial fibrillation 08/21/2005 [facility] current use of anticoagulant therapy 0 07/02/2005 Overview (01/20/2017): ICD-10 update of inactive term HISTORY OF CANCER OF BREAST 03/27/2005 documented as of this encounter (statuses as of 04/19/2024) Resolved Problems Problem Noted Date Diagnosed Date Resolved Date Osteomyelitis of left foot 07/30/2022 0 08/07/2023 ADVANCE DIRECTIVE INFORMATION 12/09/2017 02/23/2024 Overview (03/27/2005): Yes, Patient instructed to provide copy of advance directive for provider to review and to be scanned into Electronic Medical Record Endometrial cancer 02/01/2013 4 Cancer Staging:Pathologic stage from 12/17/2010:FIGO Stage IA(pT1a, pN0, cM0) - Signed by Lawrence Crandall MD on 09/18/2021 Pulmonary embolus 07/02/2005 08/01/2023 Anticoagulation management encounter 07/02/2005 02/09/2024 Overview (02/09/2024): 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) 03/15/200303/2024 MALIGN NEOPL BREAST NEC (right) 03/15/2003 08/01/2023 Encounter for long-term (cur rent) use of medications 03/15/2003 03/06/2015 Overview (02/11/2017): ICD-10 update of inactive term MALIGN NEOPL BREAST NOS 07/20 documented as of this encounter (statuses as of 04/19/2024) Immunizations Name Administration Dates Next Due COVID-19 mRNA, LNP-s, No Pre serve, 2-Dose Series (Pfizer) 01/18/2021,06/16/2020,05/26/2020 COVID-19, LNP-s, No Preserve , Villa-sucrose, Ages 12+ (Pfizer) 07/26/2021 Covid-19, Mrna, Lnp-s, Pf, B ivalent, 30 Mcg, IM, 12 yrs and above (Pfizer) 02/26/2022 Pneumococcal Conjugate Vacc, 13 Valent (Prevnar) 01/20/2020 Pneumococcal Polysaccharide PPV23 (Pneumovax) 02/26/2021 Seasonal Influenza, High Dos e, Trivalent, PF, IM (Fluzone HD) 12/13/2020,12/22/2019 Seasonal Influenza, Quadriva lent Hd, 65+ Yrs 01/17/2022,12/22/2019 TDAP (age 10 and older)(Boostrix) 2017 Varicella Zoster Vaccine (Adult) 01/09/2012 Zoster Vaccine Recombinant (Shingrix) 05/02/2020 ,02/24/2020 documented as of this encounter Social History Tobacco Use Types Packs/Day Years Used Date Smoking Tobacco: Never Smokeless Tobacco: Never Alcohol Use Standard Drinks/Week Comments Yes 0 (1 standard drink = 0.6 oz pur e alcohol) rarely Comments No Sex and Gender Information Value Date Recorded Sex Assigned at Not on file Legal Sex Female 5:26 AM EST Gender Identity Not on file Sexual Orientation Not on file 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 Answer Date of Assessment Author No 07/31/2022 5:35 PM Kirstin Frederick RN * Are you blind or do you have serious difficulty seeing, even when wearing glasses? Answer Date of Assessment Author No 07/31/2022 5:35 PM Kirstin Frederick RN * Do you have serious difficulty walking or climbing stairs? (5 years old or older) Answer Date of Assessment Author No 07/31/2022 5:35 PM EDT Kirstin Matson RN * Do you have difficulty dressing or bathing? (5 years old or older) Answer Date of Assessment Author No 07/31/2022 5:35 PM EDT Kirstin Matson RN * Because of a physical, mental, or emotional condition, do you have difficulty doing errands alone such as visiting a doctors office or shopping? (15 years old or older) Answer Date of Assessment Author No 07/31/2022 5:35 PM EDT Kirstin Matson RN documented as of this encounter Mental Status * Because of a physical, mental, or emotional condition, do you have serious difficulty concentrating, remembering, or making decisions? (5 years old or older) Answer Entry Date Author No 07/31/2022 5:35 PM EDT Kirstin Matson RN documented in this encounter Plan of Treatment Upcoming Encounters Date Type Department Care Team (Late st Contact Info) Description 04/19/2024 4:00 PM EST Imaging Radiology [facility] [address] [facility] [address] [place] [address] 06/02/2024 9:20 AM EST Telemedicine Neurology [address] [place] [phone] Solitario Cordero MD [address] [facility] [place] [address] [facility] [address] [place] [address] 06/10/2024 1:00 PM EST Office Visit Neurosurgery, [place] [address] [place] [address] Sunny Reyes PA-C [address] [facility] [place] [address] 11/03/2024 9:30 AM EDT Office Visit Gynecology/Oncology, [place] [address] [place] [address] Chiara Garcia PA-C [address] [place] [phone] 01/06/2025 8:00 AM EDT Office Visit Cardiology, [facility] [address] [place] [address] Ralph Bauer MD [address] [place] [address] Scheduled Orders Name Type Priority Associated Diagnoses Orde r Schedule CT ABDOMEN W WO IV CONTRAST - WO ORAL CONTRAST Medical Imaging Routine Generalized abdominal pain Expected: 04/19/2024, Expires: 05/20/2025 Health Maintenance Due Date Last Done Comments Depression Monitoring 1960 Albumin/Creatinine Ratio 01/22/1966 Diabetic Foot Exam 01/22/1966 COVID-19 Vaccine ( season) 2023 02/26/2022, 07/26/2021, 01/18/2021, Additional history exists HbA1c 09/28/2024 03/30/2024, 07/20, 02/20/2022, Additional history exists Diabetic Eye Exam 01/20/2025 01/21/2024, , 01/28/2023, Additional history exists GFR 04/14/2025 04/14/2024, 03/22, 04/07/2024, Additional history exists DTap/Tdap Vaccines (2 - Td or Tdap) 2027 2017 DXA Scan 02/18/2030 02/18/2023, 12/01/2003 Zoster Vaccines Completed 05/02/2020, 08/2019, 01/09/2012 Pneumococcal Vaccine: 50+ Years Completed 02/26/2021, 01/20/2020 Influenza Vaccine (FLU shot) Completed , 01/14/2024, 01/17/2022, Additional history exists HPV (Gardasil) Vaccine Aged Out No lo nger eligible based on patient's age to complete this topic Hepatitis B Vaccine Aged Out No longe r eligible based on patient's age to complete this topic MENINGOCOCCAL (MENACTRA/MENVEO) Aged Out No longer eligible based on patient's age to complete this topic documented as of this encounter Medical Devices Implanted Type Area Python Django Developer Device Identifier Shelf Expiration Date Model / Serial / Lot Mesh C-Qur 4 X 6 Inch 61469 - [id number] Implanted:Qty: 1 on 12/17/2010 at OR [facility] [place] N/A: Abdomen [employer] 31429 / / [id number] documented as of this encounter Visit Diagnoses Diagnosis Generalized abdominal pain- Primary Abdominal pain, generalized documented in this encounter Advance Directives * Full Code (Latest Code Status on File) Date Activated Date Inactivated Comments 03/30/2024 10:30 AM 04/06/2024 5:46 PM This orde r reflects the patients wishes and were consensually agreed upon. Question Answer Comments Discussion of Advance Direct makayla occurred with: Not Discussed due to patient's condition * Full Code Date Activated Date Inactivated Comments 03/30/2024 9:45 AM 03/30/2024 10:30 AM This orde r reflects the patients wishes and were consensually agreed upon. Question Answer Comments Discussion of Advance Direct makayla occurred with: Not Discussed due to patient's condition * Full Code Date Activated Date Inactivated Comments 07/30/2022 5:31 AM 08/03/2022 5:43 PM This order r eflects the patients wishes and were consensually agreed upon. Question Answer Comments Discussion of Advance Directives occurred with: Patient * Full Code Date Activated Date Inactivated Comments 12/17/2010 1:35 PM 12/21/2010 4:37 PM This order re flects the patients wishes and were consensually agreed upon. Care Teams Director Title Relationship Specialty Start Date End Date Monika Loco CRNP [address] [place], [place] [address] [address] PCP - General Nurse Practitioner 12/08/18 documented as of this encounter
--- OUTSIDE RECORDS SUMMARY | 2024-04-24 13:56 | External Medical Summary ---
Author Name Unknown Address Unknown Organization [id number] [address] [place] [address] Laboratory Report Ordering Provider Test Date Status VIRGINIA COOPER 04/21/2024 05:55:29 Final Observation Date Value Abnormality Reference (Units ) Status BUN 04/21/2024 05:55:29 24 Above high normal 6-20 (mg/dL) Final Creatinine 04/21/2024 05:55:29 0.7 0.5-1.0 (mg/dL) Final Glomerular filtration rate/1.73 sq M.predicted [Volume Rate/Area] in Serum, Plasma or Blood by Creatinine-based formula (CKD-EPI) 04/21/2024 05:55:29 87 >=60 (mL/min) Final eGFR is calculated based on the CKD-EPI 2020 equation. Sodium 04/21/2024 05:55:29 139 135-146 (m mol/L) Final Potassium 04/21/2024 05:55:29 4.4 3.5-5.1 (m mol/L) Final Cl 04/21/2024 05:55:29 102 98-107 (mm ol/L) Final CO2 04/21/2024 05:55:29 27 22-32 (mmo l/L) Final Anion gap 04/21/2024 05:55:29 10 7-15 (mmol /L) Final Glucose 04/21/2024 05:55:29 112 70-120 (mg /dL) Final Calcium 04/21/2024 05:55:29 8.4 8.4-10.2 ( mg/dL) Final Performing Location [facility] [address] [place] [address]
--- OUTSIDE RECORDS SUMMARY | 2024-04-24 13:56 | External Medical Summary | Summary of Care ---
Author Name Unknown Organization [facility] Address [address] [place] [address] Phone [phone] Care Team Providers Care People Manager Name Role Phone Monika Loco Primary Care Provide r Encounter Details Date Type Department Care Team (Late st Contact Info) Description 04/07/2024 Population Health External Data Unspecified Department Allergies Active Allergy Reactions Criticality Noted Date Comments Levofloxacin Other (Please comment),Rash High 02/24/2017 Prolonged QT, interfered with Fleconide documented as of this encounter (statuses as of 04/07/2024) Medications LORAzepam (ATIVAN) 0.5 MG TabletIndications :Follow-up [...] Capsule by mouth in the morning. Active Aspirin 81 MG Oral Tablet Chewable Take 1 Tablet by mouth in the morning for 6 days. 6 Tablet 4 04/12/20 24 Active Lisinopril 20 MG Oral Tablet (Prinivil) [...] as of this encounter (statuses as of 04/07/2024) Active Problems Problem Noted Date Diagnosed Date [...] #19 ICD-10 update of inactive term CHEST [id number] 12/17/2005 Atrial fibrillation 08/21/2005 [facility] of [facility] therapy 0 07/02/2005 Overview (01/20/2017): ICD-10 update of inactive term HISTORY OF CANCER OF BREAST 03/27/2005 documented as of this encounter (statuses as of 04/07/2024) Resolved Problems Problem Noted Date Diagnosed Date Resolved Date Osteomyelitis of left foot 07/30/2022 0 08/07/2023 ADVANCE DIRECTIVE INFORMATION 12/09/2017 02/23/2024 Overview (03/27/2005): Yes, Patient instructed to provide copy of advance directive for provider to review and to be scanned into Electronic Medical Record Endometrial cancer 02/01/2013 Cancer Staging:Pathologic stage from 12/17/2010:FIGO Stage IA(pT1a, [...] as of this encounter (statuses as of 04/07/2024) Immunizations Name Administration Dates Next Due COVID-19 mRNA, LNP-s, No Pre serve, 2-Dose Series (This Week In) 01/18/2021,06/16/2020,05/26/2020 COVID-19, LNP-s, No Preserve , Villa-sucrose, [...] Industry Job Start Date Job End Date [employer] Not on file Not on file Not [...] Kirstin Frederick RN * Do you have difficulty dressing or bathing? (5 years old or older) Answer Date of Assessment Author No 07/31/2022 5:35 PM Kirstin Frederick RN * Because of a physical, mental, or emotional condition, do you have difficulty doing errands alone such as visiting a doctors office or shopping? (15 years old or older) Answer Date of Assessment Author No 07/31/2022 5:35 PM Kirstin Frederick RN documented as of this encounter Mental Status * Because of a physical, mental, or emotional condition, do you have serious difficulty concentrating, remembering, or making decisions? (5 years old or older) Answer Entry Date Author No 07/31/2022 5:35 PM EDT Kirstin Matson RN documented in this encounter Plan of Treatment Upcoming Encounters Date Type Department Care Team (Late st Contact Info) Description 06/02/2024 9:20 AM EST Telemedicine Neurology [address] Edward, [place] [address] [place] [address] Solitario Cordero MD [address] [place], [place] [id number] [facility] [address] [place] [address] 06/10/2024 1:00 PM EST Office Visit Neurosurgery, [place] [address] [place], [place] [id number] Sunny Reyes PA-C [address] [place], [place] [id number] 11/03/2024 9:30 AM EDT Office Visit Gynecology/Oncology, [place] [address] [place], [place] [phone] Chiara Gracia PA-C [address] [place] [address] 01/06/2025 8:00 AM EDT Office Visit Cardiology, [facility] [address] [place] [address] Ralph Bauer MD [address] [facility] [place] [address] Health Maintenance Due Date Last Done Comments Depression Monitoring 1960 Albumin/Creatinine Ratio 01/22/1966 Diabetic Foot Exam 01/22/1966 COVID-19 Vaccine ( season) 2023 02/26/2022, 07/26/2021, 01/18/2021, Additional history exists HbA1c 09/28/2024 03/30/2024, 07/20, 02/20/2022, Additional history exists Diabetic Eye Exam 01/20/2025 01/21/2024, , 01/28/2023, Additional history exists GFR 04/05/2025 04/05/2024, 03/21, 04/03/2024, Additional history exists DTap/Tdap Vaccines (2 - Td or Tdap) 2027 2017 DXA Scan 02/18/2030 02/18/2023, 12/01/2003 Zoster Vaccines Completed 05/02/2020, 08/2019, 01/09/2012 Pneumococcal Vaccine: 65+ Years Completed 02/26/2021, 01/20/2020 Influenza Vaccine (FLU [...] this encounter Medical Devices Implanted Type Area Screw Machine Operator Single Spindle Device Identifier Shelf Expiration Date Model / Serial / Lot Mesh C-Qur 4 X 6 Inch 96036 - [id number] Implanted:Qty: 1 on 12/17/2010 at OR [facility] [place] N/A: Abdomen [employer] 65587 / / [id number] documented as of this encounter Advance Directives * Full Code [...] and were consensually agreed upon. Care Teams People Manager Relationship Specialty Start Date End Date Monika Loco CRNP [address] [place] [address] [place] [address] PCP - General Nurse Practitioner 12/08/18 documented as of this encounter
--- OUTSIDE RECORDS SUMMARY | 2024-04-24 13:56 | External Medical Summary ---
Author Name Unknown Address Unknown Organization [facility] [address] [place] [address] Laboratory Report Ordering Provider Test Date Status VIRGINIA COOPER 04/21/2024 05:55:29 Final Observation Date Value Abnormality Reference (Units ) Status WBC, Total 04/21/2024 05:55:29 7.81 4.00-10.8 0 (K/uL) Final RBC 04/21/2024 05:55:29 4.05 3.85-5.15 (M/uL) Final Hemoglobin 04/21/2024 05:55:29 13.0 12.0-15.3 (g/dL) Final HCT 04/21/2024 05:55:29 39.2 36.0-45.2 (%) Final MCV 04/21/2024 05:55:29 96.8 81.5-97.5 (fL) Final MCH 04/21/2024 05:55:29 32.1 27.0-34.0 (pg) Final MCHC 04/21/2024 05:55:29 33.2 32.0-36.0 (g/dL) Final RDW 04/21/2024 05:55:29 14.5 11.5-15.5 (%) Final Platelets 04/21/2024 05:55:29 335 140-400 (K /uL) Final MPV 04/21/2024 05:55:29 11.6 6.6-11.1 ( fL) Final Performing Location [facility]ORY [facility] [address] [place] [address]
--- OUTSIDE RECORDS SUMMARY | 2024-04-24 13:56 | External Medical Summary ---
Author Name Unknown Address Unknown Organization [id number]:[facility]AT[facility] [address] [place] [address] Laboratory Report Ordering Provider Test Date Status VIRGINIA COOPER 04/14/2024 05:26:00 Final Observation Date Value Abnormality Reference (Units ) Status WBC, Total 04/14/2024 05:26:00 8.90 4.00-10.8 0 (K/uL) Final RBC 04/14/2024 05:26:00 4.17 3.85-5.15 (M/uL) Final Hemoglobin 04/14/2024 05:26:00 13.5 12.0-15.3 (g/dL) Final HCT 04/14/2024 05:26:00 40.5 36.0-45.2 (%) Final MCV 04/14/2024 05:26:00 97.1 81.5-97.5 (fL) Final MCH 04/14/2024 05:26:00 32.4 27.0-34.0 (pg) Final MCHC 04/14/2024 05:26:00 33.3 32.0-36.0 (g/dL) Final RDW 04/14/2024 05:26:00 13.6 11.5-15.5 (%) Final Platelets 04/14/2024 05:26:00 359 140-400 (K /uL) Final MPV 04/14/2024 05:26:00 11.7 6.6-11.1 ( fL) Final Performing Location LABORATORY [facility] [address] [place] [address]
--- OUTSIDE RECORDS SUMMARY | 2024-04-24 13:56 | External Medical Summary ---
Author Name Unknown Address Unknown Organization K01:[facility] [place] - [address] [facility] [address] [facility] [address] Laboratory Report Ordering Provider Test Date Status VIRGINIA COOPER 04/20/2024 02:10:00 Final Observation Date Value Abnormality Reference (Units ) Status Bacteria identified in Specimen by Culture 04/20/2024 02:10:00 [id number]^KLEBSIELL A PNEUMONIAE Abnormal Final >100,000 colonies/mL Klebsie lla pneumoniae Performing Location LABORATORY C - [address] [facility] [address] [place] [place] [address] Ordering Provider Test Date Status VIRGINIA COOPER 04/20/2024 02:10:00 Final Observation Date Value Abnormality Reference (Units ) Status Ampicillin + Sulbactam 04/20/2024 02:10:00 4 Susceptible Final Cefazolin 04/20/2024 02:10:00 <=4 Susceptible Final Cefepime susceptibility 04/20/2024 02:10:00 <=1 Susceptible Final Ceftriaxone suceptibility 04/20/2024 02:10:00 <=1 Susceptible Final Ciprofloxacin 04/20/2024 02:10:00 <=0.25 Susceptible Final Due to serious side effects, the FDA has advised against using Ciprofloxacin to treat uncomplicated UTIs and respiratory tract infections unless there are no alternative treatment options. Gentamicin susceptibility 04/20/2024 02:10:00 <=1 Susc eptible Final Nitrofurantoin susceptibility 04/20/2024 02:10:00 <=16 Susceptible Final Piperacillin + Tazobactamsusceptibility 04/20/2024 02:10:00 <=4 Susceptible Final TMP-SMZ susceptibility 04/20/2024 02:10:00 <=20 Suscept ible Final Test: Culture, Urine, Quanti tative
Specimen Type: Urine
Specimen Date: 04/20/2024 0210
Result Date: 04/22/2024 0717
Result Status: Final result
Abnormal: Yes
Resulting Lab: LAB[facility]ATORY [facility]
[address]
[place] [address]

CULTURE

>100,000 colonies/mL Klebsiella pneumoniae (Abnormal)

SUSCEPTIBILITY

Klebsiella
pneumoniae
METHOD MICROBROTH
DILUTIONS

AMPICILLIN/SULBACTAM 4 Susceptible
CEFAZOLIN <=4 Susceptible
CEFEPIME <=1 Susceptible
CEFTRIAXONE <=1 Susceptible
CIPROFLOXACIN <=0.25 Susceptible
[1]
GENTAMICIN <=1 Susceptible
NITROFURANTOIN <=16 Susceptible
PIPERACILLIN TAZOBACTAM <=4 Susceptible
TRIMETH/SULFAMETHOXAZOLE <=20 Susceptible

[1] Due to serious side effects, the FDA has advised against using
Ciprofloxacin to treat uncomplicated UTIs and respiratory tract infections
unless there are no alternative treatment options.

null Performing Location LAB[facility]AT[facility] - [address] [place] [address]
--- OUTSIDE RECORDS SUMMARY | 2024-04-24 13:56 | External Medical Summary ---
Author Name Unknown Address Unknown Organization [id number]:[facility] [place] [address] Laboratory Report Ordering Provider Test Date Status LUDWIG JAIN 04/09/2024 07:03:01 Final Observation Date Value Abnormality Reference (Units ) Status BUN 04/09/2024 07:03:01 50 Above high normal 6- 20 (mg/dL) Final Creatinine 04/09/2024 07:03:01 0.8 0.5-1.0 ( mg/dL) Final Results rechecked. Glomerular filtration rate/1 .73 sq M.predicted [Volume Rate/Area] in Serum, Plasma or Blood by Creatinine-based formula (CKD-EPI) 04/09/2024 07:03:01 82 >=60 (mL/min) Fi nal eGFR is calculated based on the CKD-EPI 2020 equation. Sodium 04/09/2024 07:03:01 140 135-146 (m mol/L) Final Potassium 04/09/2024 07:03:01 4.5 3.5-5.1 (m mol/L) Final Cl 04/09/2024 07:03:01 107 98-107 (mm ol/L) Final CO2 04/09/2024 07:03:01 21 Below low normal 22- 32 (mmol/L) Final Anion gap 04/09/2024 07:03:01 12 7-15 (mmol /L) Final Glucose 04/09/2024 07:03:01 174 Above high normal 70 -120 (mg/dL) Final Calcium 04/09/2024 07:03:01 8.4 8.4-10.2 ( mg/dL) Final Performing Location [facility] [place] [address]
--- OUTSIDE RECORDS SUMMARY | 2024-04-24 13:56 | External Medical Summary ---
Author Name Unknown Address Unknown Organization K09:[facility] [place] [address] Laboratory Report Ordering Provider Test Date Status LUDWIG JAIN 04/09/2024 07:03:01 Final Observation Date Value Abnormality Reference (Units ) Status WBC, Total 04/09/2024 07:03:01 10.11 4.00-10.8 0 (K/uL) Final RBC 04/09/2024 07:03:01 4.36 3.85-5.15 (M/uL) Final Hemoglobin 04/09/2024 07:03:01 13.8 12.0-15.3 (g/dL) Final HCT 04/09/2024 07:03:01 42.4 36.0-45.2 (%) Final MCV 04/09/2024 07:03:01 97.2 81.5-97.5 (fL) Final MCH 04/09/2024 07:03:01 31.7 27.0-34.0 (pg) Final MCHC 04/09/2024 07:03:01 32.5 32.0-36.0 (g/dL) Final RDW 04/09/2024 07:03:01 14.0 11.5-15.5 (%) Final Platelets 04/09/2024 07:03:01 375 140-400 (K /uL) Final MPV 04/09/2024 07:03:01 12.0 6.6-11.1 ( fL) Final Performing Location [facility] [place] [address]
--- OUTSIDE RECORDS SUMMARY | 2024-04-24 13:56 | External Medical Summary ---
Author Name Unknown Address Unknown Organization [id number]:[facility] [place] - [address] [id number] Laboratory Report Ordering Provider Test Date Status LUDWIG JAIN 04/08/2024 08:08:07 Final Observation Date Value Abnormality Reference (Units) Status Bacteria identified in Specimen by Culture 04/08/2024 08:08:07 No significant growth Final Test: Culture, Urine, Quanti tative
Specimen Type: Urine
Specimen Date: 04/08/2024 0808
Result Date: 04/09/2024 0833
Result Status: Final result
Resulting Lab: [facility] [place]
[address]
[place] [address]

CULTURE

No significant growth

null Performing Location [facility] [place] - [address] [facility] [address]
--- OUTSIDE RECORDS SUMMARY | 2024-04-24 13:56 | External Medical Summary ---
Author Name Unknown Address Unknown Organization [id number]:[facility] [address] [place] [address] Laboratory Report Ordering Provider Test Date Status LUDWIG JAIN 04/08/2024 08:08:07 Final Observation Date Value Abnormality Reference (Units ) Status Color of Urine by Auto 04/08/2024 08:08:07 Yellow Light Yellow, Yellow, Dark Yellow Final Clarity, Urine 04/08/2024 08:08:07 Slightly Cloudy Abnormal Clear Final Glucose [Mass/volume] in Urine by Automated test strip 04/08/2024 08:08:07 Negative Negative (mg/dL) Final Bilirubin.total [Presence] in Urine by Automated test strip 04/08/2024 08:08:07 Negative Negative Final Ketones [Mass/volume] in Urine by Automated test strip 04/08/2024 08:08:07 Negative Negative (mg/dL) Final Specific gravity, Urine 04/08/2024 08:08:07 1.025 1.003-1.030 Final Hemoglobin [Presence] in Urine by Automated test strip 04/08/2024 08:08:07 Small Abnormal Negative Final pH, Urine 04/08/2024 08:08:07 6.0 5.0-7.5 (Units) Final Protein [Mass/volume] in Urine by Automated test strip 04/08/2024 08:08:07 100 Abnormal Negative (mg/dL) Final Urobilinogen [Mass/volume] in Urine by Automated test strip 04/08/2024 08:08:07 0.2 0.2, 1.0 (mg/dL) Final Nitrite [Presence] in Urine by Automated test strip 04/08/2024 08:08:07 Negative Negative Final Leukocyte esterase [Presence] in Urine by Automated test strip 04/08/2024 08:08:07 Negative Negative Final RBC, Urine 04/08/2024 08:08:07 3-5 Abnormal 0-2 (/HPF) Final WBC, Urine 04/08/2024 08:08:07 0-2 0-2 (/HPF) Final Bacteria [#/area] in Urine sediment by Microscopy high power field 04/08/2024 08:08:07 26-50 Abnormal 0-25 (/HPF) Final Crystals.amorphous [#/area] in Urine sediment by Microscopy high power field 04/08/2024 08:08:07 Many Abnormal None (/HPF) Final Performing Location [facility] [address] [place] [address]
--- OUTSIDE RECORDS SUMMARY | 2024-04-24 13:56 | External Medical Summary ---
Author Name Unknown Address Unknown Organization [id number]:[facility] [address] [place] [address] Laboratory Report Ordering Provider Test Date Status VIRGINIA COOPER 04/14/2024 05:26:00 Final Observation Date Value Abnormality Reference (Units ) Status BUN 04/14/2024 05:26:00 19 6-20 (mg/dL) Final Creatinine 04/14/2024 05:26:00 0.7 0.5-1.0 (mg/dL) Final Glomerular filtration rate/1.73 sq M.predicted [Volume Rate/Area] in Serum, Plasma or Blood by Creatinine-based formula (CKD-EPI) 04/14/2024 05:26:00 90 >=60 (mL/min) Final eGFR is calculated based on the CKD-EPI 2020 equation. Sodium 04/14/2024 05:26:00 141 135-146 (m mol/L) Final Potassium 04/14/2024 05:26:00 4.7 3.5-5.1 (m mol/L) Final Cl 04/14/2024 05:26:00 106 98-107 (mm ol/L) Final CO2 04/14/2024 05:26:00 27 22-32 (mmo l/L) Final Anion gap 04/14/2024 05:26:00 8 7-15 (mmol /L) Final Glucose 04/14/2024 05:26:00 106 70-120 (mg /dL) Final Calcium 04/14/2024 05:26:00 8.9 8.4-10.2 ( mg/dL) Final Performing Location [facility] [address] [place] [address]
--- OUTSIDE RECORDS SUMMARY | 2024-04-24 13:57 | External Medical Summary ---
Author Name Unknown Address Unknown Organization [id number]:[facility] [place] [address] [place] [address] Laboratory Report Ordering Provider Test Date Status SHAKEEL GIL 04/04/2024 07:23:00 Final Observation Date Value Abnormality Reference (Units ) Status BUN 04/04/2024 07:23:00 34 Above high normal 6-20 (mg/dL) Final Creatinine 04/04/2024 07:23:00 0.7 0.5-1.0 (mg/dL) Final Glomerular filtration rate/1.73 sq M.predicted [Volume Rate/Area] in Serum, Plasma or Blood by Creatinine-based formula (CKD-EPI) 04/04/2024 07:23:00 88 >=60 (mL/min) Final eGFR is calculated based on the CKD-EPI 2020 equation. Sodium 04/04/2024 07:23:00 136 135-146 (m mol/L) Final Potassium 04/04/2024 07:23:00 4.7 3.5-5.1 (m mol/L) Final Results may be falsely eleva rosalind due to hemolysis. Cl 04/04/2024 07:23:00 102 98-107 (mm ol/L) Final CO2 04/04/2024 07:23:00 20 Below low normal 22- 32 (mmol/L) Final Anion gap 04/04/2024 07:23:00 14 7-15 (mmol /L) Final Glucose 04/04/2024 07:23:00 213 Above high normal 70 -120 (mg/dL) Final Calcium 04/04/2024 07:23:00 8.8 8.4-10.2 ( mg/dL) Final Performing Location [facility] [place] [address] [place] [address]
--- OUTSIDE RECORDS SUMMARY | 2024-04-24 13:57 | External Medical Summary ---
Author Name Unknown Address Unknown Organization : Laboratory Report Ordering Provider Test Date Status ARBEN BERGMAN 04/03/2024 21:08:18 Final Observation Date Value Abnormality Reference (Units ) Status Glucose Point of Care 04/03/2024 21:08:18 233 Above high normal 70-120 (mg/dL) Final Performing Location
--- OUTSIDE RECORDS SUMMARY | 2024-04-24 13:57 | External Medical Summary ---
Author Name Unknown Address Unknown Organization : Laboratory Report Ordering Provider Test Date Status ARBEN BERGMAN 04/04/2024 07:50:22 Final Observation Date Value Abnormality Reference (Units ) Status Glucose Point of Care 04/04/2024 07:50:22 225 Above high normal 70-120 (mg/dL) Final Performing Location
--- OUTSIDE RECORDS SUMMARY | 2024-04-24 13:57 | External Medical Summary ---
Author Name Unknown Address Unknown Organization : Laboratory Report Ordering Provider Test Date Status ARBEN BERGMAN 04/03/2024 08:45:51 Final Observation Date Value Abnormality Reference (Units ) Status Glucose Point of Care 04/03/2024 08:45:51 167 Above high normal 70-120 (mg/dL) Final Performing Location
--- OUTSIDE RECORDS SUMMARY | 2024-04-24 13:57 | External Medical Summary ---
Author Name Unknown Address Unknown Organization : Laboratory Report Ordering Provider Test Date Status SHILPA HI 04/06/2024 11:50:52 Final Observation Date Value Abnormality Reference (Units ) Status Glucose Point of Care 04/06/2024 11:50:52 225 Above high normal 70-120 (mg/dL) Final Performing Location
--- OUTSIDE RECORDS SUMMARY | 2024-04-24 13:57 | External Medical Summary ---
Author Name Unknown Address Unknown Organization [id number]:[facility] [place] [address] [place] [address] Laboratory Report Ordering Provider Test Date Status SHAKEEL GIL 04/04/2024 10:16:00 Final Observation Date Value Abnormality Reference (Units ) Status WBC, Total 04/04/2024 10:16:00 12.11 Above high normal 4.00-10.80 (K/uL) Final RBC 04/04/2024 10:16:00 4.75 3.85-5.15 (M/uL) Final Hemoglobin 04/04/2024 10:16:00 14.7 12.0-15.3 (g/dL) Final HCT 04/04/2024 10:16:00 45.7 Above high normal 36.0-45.2 (%) Final MCV 04/04/2024 10:16:00 96.2 81.5-97.5 (fL) Final MCH 04/04/2024 10:16:00 30.9 27.0-34.0 (pg) Final MCHC 04/04/2024 10:16:00 32.2 32.0-36.0 (g/dL) Final RDW 04/04/2024 10:16:00 13.0 11.5-15.5 (%) Final Platelets 04/04/2024 10:16:00 390 140-400 (K/uL) Final MPV 04/04/2024 10:16:00 11.6 6.6-11.1 (fL) Final Nucleated erythrocytes/100 leukocytes [Ratio] in Blood by Automated count 04/04/2024 10:16:00 0 <=0 (/100 WBCs) Final Performing Location [facility] [place] [address] [place] [address]
--- OUTSIDE RECORDS SUMMARY | 2024-04-24 13:57 | External Medical Summary ---
Author Name Unknown Address Unknown Organization : Laboratory Report Ordering Provider Test Date Status ARBEN BERGMAN 04/03/2024 16:53:04 Final Observation Date Value Abnormality Reference (Units ) Status Glucose Point of Care 04/03/2024 16:53:04 246 Above high normal 70-120 (mg/dL) Final Performing Location
--- OUTSIDE RECORDS SUMMARY | 2024-04-24 13:57 | External Medical Summary | Summary of Care ---
Author Name Unknown Organization [facility] Address [address] [place] [address] Phone [phone] Care Team Providers Care Finishing Room Supervisor Name Role Phone Monika Loco Primary Care Provide r Reason for Referral * Evaluate & Treat - Unlimited Visits (Within 30 days (routine)) - Authorized Specialty Diagnoses / Procedures Referred By Contact Referred To Contact Cardiovascular Medicine / Cardiology Diagnoses Statin intolerance Dyslipidemia, goal LDL below 70 Arian Russell DO [address] [place] [address] Phone: tel: fax: Referral ID Status Reason Start Date Expiration Date Visits Requested Visits Authorized [id number] Authorized Specialty Services Required [phone] Question Answer Referral Priority Within 30 days (routine) Where should this appointment be scheduled? Irina To which of the following clinics are you referring your patient? Lipid Clinic Comments Discharge Order Reason for Visit * Auth/Cert Specialty Diagnoses / Procedures Referred By Abdias man Referred To Contact Diagnoses Pain Pain [R52] Procedures CAROTID (INTERNAL) ARTERY CATHETHER PLACEMENT VERTEBRAL ARTERY CATHETER PLACEMENT CATHETER PLACEMENT INTERNAL CAROTID ARTERY CATHETER PLACEMENT VERTEBRAL ARTERY, Yannick Monteiro MD, PhD [address] [place] [address] Phone: tel: fax: [facility] [address] [place] [address] Phone: tel: Referral ID Status Reason Start Date Expiration Date Visits Re quested Visits Authorized [id number] Encounter Details Date Type Department Care Team (Latest Contact Info) Description 03/30/2024 7:34 AM EST - 04/06/2024 1:45 PM EST Hospital Encounter [id number] 4[facility] F[facility] [address] [id number] Yannick Monteiro MD, PhD [address] [place] [address] Art Ybarra MD [address] [place] [address] Solitario Cordero MD [address] [place] [address] Aries Yee MD [address] [place] [address] Various: KRAVS,EKG Discharge Disposition: IP Rehab Allergies Active Allergy Reactions Criticality Noted Date Comments Levofloxacin Other (Please comment),Rash High 02/24/2017 Prolonged QT, interfered with Fleconide documented as of this encounter (statuses as of 04/07/2024) Medications LORAzepam (ATIVAN) 0.5 MG TabletIndication s:Follow-up examination, following other surgery TAKE 1 TABLET BY MOUTH NEEDED FOR ANXIETY. 20 Tab 0 03/06/20 15 Active Multivitamin Adult Extra C Oral Tablet Chewable Take 1 Tablet by mouth in the morning. 01/22/20 22 Active Vitamin B Complex-C Oral Capsule Take 1 Capsule by mouth daily at noon. 01/22/20 22 Active Potassium Chloride Shaina ER 10 MEQ Oral Tablet Extended Release TAKE 1 TABLET BY MOUTH THREE TIMES A WEEK 40 Tablet 3 01/03/20 22 Active Colchicine 0.6 MG Oral Tablet Take 1 tablet by mouth three times daily as needed 90 Tablet 4 3:22 PM EDT 02/08/20 23 Active Ezetimibe 10 MG Oral Tablet (Zetia)Indicatio ns:Dyslipidemia, goal LDL below 100 Take 1 Tablet by mouth in the morning. 90 Tablet 3 4 8:13 AM EDT 03/04/20 23 Active Furosemide 40 MG Oral Tablet (Lasix)Indicatio ns:Paroxysmal atrial fibrillation (HCC),Stasis edema TAKE ONE TABLET BY MOUTH EVERY DAY NEEDED FOR SWELLING 100 Tablet 3 4 9:15 AM EST 06/06/19 24 025 Active Allopurinol 300 MG Oral Tablet (Zyloprim) 300 mg orally daily; 1 and 1/2 tabs daily 135 Tablet 2 4 5:33 PM EDT 07/14/19 24 Active Ketoconazole 2 % External Shampoo (Nizoral) Use as shampoo on scalp at least 3 times weekly, lather, wait 5 min, then rinse 120 mL 5 4 2:18 PM EDT 08/07/19 24 Active metFORMIN HCl ER 500 MG Oral Tablet Extended Release 24 Hour (Glucophage XR) take 2 tablets by mouth twice daily 360 Tablet 3 4 1:26 PM EDT 09/04/19 24 Active Fluocinonide 0.05 % External Solution Apply to scalp nightly as needed 60 mL 3 4 5:47 PM EDT 11/03/19 24 Active Flecainide Acetate 100 MG Oral Tablet (Tambocor)Indica tions:Paroxysmal atrial fibrillation (HCC),HTN, goal below 140/90 Take 1 Tablet by mouth in the morning and 1 Tablet before bedtime. 180 Tablet 3 4 10:36 AM EST 12/10/19 24 Active metroNIDAZOLE 0.75 % External Cream (MetroCream) Apply to affected areas of the face daily for maintenance , twice daily for flares 45 g 3 4 5:49 PM EDT 01/08/20 24 Active Hydrocortisone 2.5 % External Cream Apply to affected areas on face (alar creases, left lateral nasal root) twice daily as needed 60 g 3 4 5:49 PM EDT 01/08/20 24 Active Magnesium 500 MG Oral Capsule Take 1 Capsule by mouth in the morning. Active Aspirin 81 MG Oral Tablet Chewable Take 1 Tablet by mouth in the morning for 6 days. 6 Tablet 04/06/20 24 Active Lisinopril 20 MG Oral Tablet (Prinivil) Take 1 Tablet by mouth in the morning. 60 Tablet 1 04/06/20 24 Active Metoprolol Tartrate 100 MG Oral Tablet (Lopressor) Take 1 Tablet by mouth in the morning and 1 Tablet before bedtime. 60 Tablet 1 04/06/20 24 Active Apixaban 5 MG Oral Tablet (Eliquis) Take 1 Tablet by mouth in the morning and 1 Tablet before bedtime. Do not start before April 13, 2024. 180 Tablet 2 04/13/20 24 Active Rosuvastatin Calcium 5 MG Oral Tablet (Crestor)Indicat ions:Dyslipidemi a, goal LDL below 100 Take one tab three days per week. 30 Tablet 11 05/22/19 23 Discontinued(Me dication List Clean Up) Acetaminophen 325 MG Oral Tablet (Tylenol) Take 2 Tablets by mouth every 6 hours as needed for Pain, Mild or Fever >38C(100.5F ). 30 Tablet 08/04/19 23 Discontinued Rivaroxaban 15 MG Oral Tablet (Xarelto) Take one tablet by mouth every morning 90 Tablet 3 4 5:12 PM EDT 03/18/20 23 Discontinued Triamterene-HCTZ 75-50 MG Oral Tablet (Maxzide)Indicat ions:HTN, goal below 140/90 TAKE ONE TABLET BY MOUTH THREE DAYS PER WEEK. 40 Tablet 3 05/13/19 24 Discontinued Metoprolol Tartrate 50 MG Oral Tablet (Lopressor)Indic ations:Paroxysma l atrial fibrillation (HCC),HTN, goal below 140/90 TAKE ONE TABLET BY MOUTH TWICE A DAY, IN THE MORNING AND BEFORE BEDTIME 180 Tablet 3 4 3:06 PM EST 07/17/19 24 Discontinued Magnesium 200 MG Oral Tablet Chewable Take 1 Tablet by mouth in the morning. 024 Discontinued(Me dication List Clean Up) Doxycycline Monohydrate 100 MG Oral Capsule Take 1 Capsule by mouth in the morning and 1 Capsule before bedtime. Do all this for 14 days. 28 Capsule 4 4:17 PM EDT 01/08/20 24 024 Discontinued(Tx dication List Clean Up) Apixaban 5 MG Oral Tablet (Eliquis) Take 1 Tablet by mouth in the morning and 1 Tablet before bedtime. Do not start before April 13, 2024. 60 Tablet 2 04/13/20 24 024 Discontinued documented as of this encounter (statuses as [...] #19 ICD-10 update of inactive term CHEST [id number] 12/17/2005 Atrial fibrillation 08/21/2005 salvage determiner current use of anticoagulant therapy 0 07/02/2005 [...] IA(pT1a, pN0, cM0) - Signed by Lawrence Cradnall MD on 09/18/2021 Pulmonary embolus 07/02/2005 08/01/2023 [...] mRNA, LNP-s, No Pre serve, 2-Dose Series ([employer]) 01/18/2021,06/16/2020,05/26/2020 COVID-19, LNP-s, No Preserve , Villa-sucrose, Ages 12+ (Pfizer) 07/26/2021 Covid-19, Mrna, Lnp-s, Pf, B ivalent, 30 Mcg, IM, 12 yrs and above ([employer]) 02/26/2022 Pneumococcal Conjugate Vacc, 13 Valent (Prevnar) [...] 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 file Not on file Not on file documented as of this encounter Last Filed Vital Signs Vital Sign Reading Time Taken Comments Blood Pressure 150/99 04/06/2024 6:00 AM EST Pulse 98 04/06/2024 6:00 AM EST Temperature 36.3 C (97.3 F) 04/06/2024 6:00 AM ES T Respiratory Rate 18 04/06/2024 8:28 AM EST Oxygen Saturation 95% 04/06/2024 8:28 AM EST Inhaled Oxygen Concentration - - Weight 109.5 kg (241 lb 8 oz) 04/06/2024 4:15 AM EST Height 167.6 cm (5' 6") 03/30/2024 7:00 PM EST Body Mass Index 38.98 03/30/2024 7:00 PM EST documented in this encounter Functional Status * Are you deaf or do you have serious difficulty hearing? Answer Date of Assessment Author No 07/31/2022 5:35 PM EDT Kirstin Matson RN * Are you blind or do you have serious difficulty seeing, even when wearing glasses? Answer Date of Assessment Author No 07/31/2022 5:35 PM EDT Kirstin Matson RN * Do you have serious difficulty [...] of Assessment Author No 07/31/2022 5:35 PM EDKirstin Guajardo RN documented as of this encounter Mental Status * Because of a physical, mental, or emotional condition, do you have serious difficulty concentrating, remembering, or making decisions? (5 years old or older) Answer Entry Date Author No 07/31/2022 5:35 PM EDT Kirstin Matson RN documented in this encounter Discharge Summaries * Juvencio Layne MD - 04/06/2024 11:14 AM EST [address] [address] Admission Date: 03/30/2024 Discharge Date: 04/06/2024 RECOMMENDED TO DO FOR NEXT PROVIDER(S): Subacute Follow-up (4 - 8 weeks) -Patient to start eliquis on 04/13 -Continue lisinopril for hypertension -Cardiology lipid clinic referral Secondary stroke risk education: BP medications for goal less than 130/80 Statin for goal LDL less than 70 Regular screen for Diabetes with goal HbA1c less than 7.0 and good glycemic control Moderate weight loss A low fat, low carbohydrate, low sodium diet Regular exercise routine (moderate to vigorous aerobic exercise of at least 40 minutes, a minimum of 3 days per week) Adherence to the treatment plan for sleep apnea Secondary stroke risk reduction: Aspirin Eliquis on 04/13 (* refer to below medication list for dosages on the above) SCHEDULED FOLLOW-UP: Future Appointments Appt Date/Time Provider Department 06/02/2024 9:20 AM Sridevi Beckett [address]; Solitario Cordero MD Neurology [facility] [place] Arrive at: ARRIVE AT: Family Practice [address] [place] [address], [place] 06/10/2024 1:00 PM Sunny Reyes PA-C Neurosurgery, [place] 11/03/2024 9:30 AM Chiara Garcia PA-C Gynecology/Oncology, [place] 01/06/2025 8:00 AM Ralph Bauer MD Cardiology, [facility] DISPOSITION ON DISCHARGE: IRB DISCHARGE DIAGNOSES: Active Hospital Problems Diagnosis *Principal Diagnosis - Acute ischemic left MCA stroke (HCC) Gait abnormality Impaired mobility and ADLs Dysphagia due to recent stroke Right hemiparesis (HCC) Mixed aphasia Resolved Hospital Problems No resolved problems to display. RISK FACTORS IDENTIFIED: Ischemic Stroke Risk Factors Hypertension Dyslipidemia Diabetes Atrial Fibrillation / Flutter Hemorrhagic Stroke Risk Factors Hypertension Currently taking antithrombotic medication Stroke Mimic Risk Factors None PROPOSED STROKE MECHANISM: Cardioembolic ADMISSION HISTORY & PHYSICAL EXAM (focused): Verena Field is a 74 year old female w/ PMHX Paroxysmal Afib (Xarelto, Flecanide 100 BID and Lopressor 50 BID) Non obstructive CAD RBBB Recurrent PE (last 2016 on Xarelto) Obesity HTN (Triamterne HXTZ 75-50) HLD (crestor 5, Zetia - statin intolerance) T2DM (Metformin, last A1c 7.2) H/o skin cancer: melanoma in situ, right upper back 2022 Hx BCC L midback 04/2017, BCC L clavicle 2008 Hx AK Hx breast (s/p double mastectomy) and uterine CA (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 LKW was 12/8 at 2200. Found to have. L gaze, R weakness, and aphasia. OSH NIH 24. No TNK as patient is on xarelto. CTH/CTA with M1 occlusion. Taken to angio directly by neurosurgery. Patient returned from thrombectomy and is unable to speak Physical Examination: General: Patient in no apparent distress. HEENT: normocephalic, atraumatic. HOB at 0 Heart: regular rate and rhythm; S1 and S2 present; no murmurs auscultated Pulmonary: Lungs clear to auscultation bilaterally; no wheezes, rhonchi or crackles. Abdomen: Soft, non-tender, non-distended. Normal bowel sounds and no rebound or guarding. MSK: Patient able to move left arm independently. Not able to raise right arm. Right leg with triple flexion. Left leg wiggles toes. Toe amputation Extremities: No pitting edema present at lower extremity bilaterally Skin: [place], warm, no wounds or lesions present. Neuro: NIH Stroke Scale: 1a. Level of Consciousness: alert = 0 1b. LOC Questions: (month, age): aphasic or stuporous patient who does not comprehend the questions= 2 1c. LOC Commands (open and close eyes, make fist and let go using non-paretic hand): both incorrect= 2 2. Best Gaze (eyes open and patient follows examiner's finger or face): normal = 0 3. Visual (visual threat or finger counting in each quadrant): no loss = 0 4. Facial Palsy (show teeth, raise eye brows and squeeze eyes shut, or grimace symmetry in a comatose patient): partial paralysis (lower face paralysis) = 2 5a. Motor Arm (extend arm (palms down) to 90 degrees and score drift/movement (10 seconds) - Left: no drift = 0 5b. Motor Arm: (extend arm (palms down) to 90 degrees and score drift/movement (10 seconds) - Right: no movement at all = 4 6a. Motor Leg (elevate leg 30 degrees and score drift/ movement (5 seconds) - Left: no drift = 0 6b. Motor Leg (elevate leg 30 degrees and score drift/ movement (5 seconds) - Right: some effort against gravity (extremity drifts downward and hits the bed) = 2 7. Limb Ataxia (finger to nose, heel down recinos): present in two limbs = 2 8. Sensory (pin prick to face, arm, trunk and leg, compare side to side): partial loss (decreased sensation) = 1 9. Best Language: severe aphasia = 2 10. Dysarthria (evaluate speech clarity by patient repeating listed words): mute/anarthic = 2 11. Extinction and Inattention: profound neglect (extinction to more than one modality, or profoundhemi-inattention) = 2 Total: 20 HOSPITAL COURSE (focused): 74F with history of afib on xarelto, HTN, HLD, DMT2 who presented with L M1 occlusion and received mechanical thrombectomy with TICI3. MRI after procedure showed L MCA infarct with some petechial hemorrhage with stable bleed on repeat CTH. Etiology of the stroke was thought to be cardioembolic given lack of significant atherosclerotic disease on CTA and history of atrial fibrillation. She was compliant with the medication so will start Eliquis instead of Xarelto on 04/13. She should stop aspirin at that time. She was found to be hypertensive so started on lisinopril. Metoprolol dose was increased for improved rate control. She was briefly on Unasyn for possible aspiration PNA but stopped given unremarkable labs and CXRs. Given lack of bowel movements, abdominal XR was done which showed mild stool burden. Upon discharge, she was also referred to lipid clinic due to mildly uncontrolled HLD for consideration of PCSK9. Discharged to [facility] on 04/05/2024. DAY OF DISCHARGE PHYSICAL EXAMINATION: General Examination: Constitutional: Appearance no deformities, well groomed, and in bed, somewhat frequent coughing or throat clearing while in room Head/face, ears, nose, throat: normocephalic, atraumatic Cardiovascular: normal heart sounds, regular rate, regular rhythm, normal pulses, and no carotid bruit Psychiatric: pleasant and in no acute distress Neurologic Examination: Ophthalmoscopic: deferred Mental Status and Orientation: alert, awake, and following commands Memory: KAITLIN given aphasia Attention: normal Knowledge: KAITLIN given aphasia Language: expressive aphasia and following commands Speech: aphasic Cranial Nerves: CN 2 - no visual defect on confrontation and pupils round, equal, reactive to light CN 3, 4, 6 - extra-ocular movements intact and no nystagmus CN 5 - symmetrical sensation to V1-3 CN 7 - some facial asymmetry, right sided paresis CN 8 - intact hearing CN 9, 10 - did not assess CN 11 - asymmetric shoulder shrug CN 12 - KAITLIN Sensory: intact to light touch throughout Coordination: shaky but normal finger to nose on left upper extremity Gait: deferred due to fall risk Muscle Tone: right side flaccid Right sided hemiparesis. Can move left side anti-gravity without drift. Stroke Center Guidelines and Treatment: Therapy needs were identified with recommendations as follows: . P.T. - IPR O.T. - IPR S. T. - Soft and bite sized diet, continued therapy Antithrombotic Therapy: receiving antiplatelet or anticoagulation Atrial Fibrillation or Flutter: yes - will start eliquis on 04/13 Statin: contraindicated, reason: statin intolerance, on zetia Stroke Education: personal risk factors for stroke medications prescribed and side effects warning signs for stroke, and activation of the emergency medical system bleeding risk smoking cessation weight reduction, Body mass index is 38.98 kg/m. diabetes mellitus teaching about diagnosis and management lifestyle changes including dietary modification and exercise/activity level rehabilitation expectations Stroke Specific Test Results: Neuroimaging: CT Scan/CT Angio: Evolving left MCA and CORINA distribution infarcts not significantly changed, no newabnormality identified. MRI: Scattered areas of acute/subacute infarcts throughout the left MCA territory with predominantly petechial type hemorrhagic transformation. No significant mass effect. Short-term follow-up CT is recommended. Vessel Status: TTE: The examination is limited quality but adequate for evaluation of the referral indication. The qualitative LV ejection fraction is 60-64% (normal). The LV wall thickness is mildly increased (concentric). No LV segmental wall motion abnormalities. The right ventricular cavity is mildly dilated. The right ventricular systolic function is qualitatively normal. Mild aortic valve stenosis is present. There is no source of cardiac embolus within the limitations of a limited quality transthoracic echo. Labwork: LDL: 115 HbA1c: 7.2 Test Results Still Pending at Discharge: none MEDICATIONS: MEDICATION UPDATES AT DISCHARGE START taking these medications INSTRUCTIONS Apixaban 5 MG Tablet Commonly known as: Eliquis Start taking on: April 13, 2024 Take 1 Tablet by mouth in the morning and 1 Tablet before bedtime. Do not start before March. aspirin 81 MG chewable tablet Take 1 Tablet by mouth in the morning for 6 days. Lisinopril 20 MG Tablet Commonly known as: Prinivil Take 1 Tablet by mouth in the morning. CHANGE how you take these medications INSTRUCTIONS Metoprolol Tartrate 100 MG Tablet Commonly known as: Lopressor What changed: medication strength how much to take how to take this when to take this Take 1 Tablet by mouth in the morning and 1 Tablet before bedtime. CONTINUE taking these medications INSTRUCTIONS Allopurinol 300 MG Tablet Commonly known as: Zyloprim 300 mg orally daily; 1 and 1/2 tabs daily colchicine 0.6 MG Tablet Take 1 tablet by mouth three times daily as needed Ezetimibe 10 MG Tablet Commonly known as: Zetia Take 1 Tablet by mouth in the morning. flecainide 100 MG Tablet Commonly known as: Tambocor Take 1 Tablet by mouth in the morning and 1 Tablet before bedtime. Fluocinonide 0.05 % external solution Apply to scalp nightly as needed Furosemide 40 MG Tablet Commonly known as: Lasix TAKE ONE TABLET BY MOUTH EVERY DAY NEEDED FOR SWELLING hydrocortisone 2.5 % cream Apply to affected areas on face (alar creases, left lateral nasal root) twice daily as needed Ketoconazole 2 % shampoo Commonly known as: Nizoral Use as shampoo on scalp at least 3 times weekly, lather, wait 5 min, then rinse LORAzepam 0.5 MG Tablet Commonly known as: Ativan TAKE 1 TABLET BY MOUTH NEEDED FOR ANXIETY. Magnesium 500 MG Capsule Take 1 Capsule by mouth in the morning. metFORMIN ER 500 MG Tb24 Commonly known as: Glucophage XR take 2 tablets by mouth twice daily metroNIDAZOLE (topical) 0.75 % cream Commonly known as: MetroCream Apply to affected areas of the face daily for maintenance, twice daily for flares Multivitamin Adult Extra C Chew Take 1 Tablet by mouth in the morning. potassium chloride ER 10 MEQ Tbcr TAKE 1 TABLET BY MOUTH THREE TIMES A WEEK Vitamin B Complex-C Capsule Take 1 Capsule by mouth daily at noon. STOP taking these medications Acetaminophen 325 MG Tablet Commonly known as: Tylenol triamterene-hctz 75-50 mg per tab 75-50 MG per tablet Commonly known as: Maxzide Xarelto 15 MG Tablet Generic drug: Rivaroxaban Operations & Procedures: mechanical thrombectomy 03/30 Complications: none significant OTHER INFORMATION: Vital Signs (last recorded): Most Recent Systolic BP: 150 mmHg (04/06/24 0600) Most Recent Diastolic BP: 99 mmHg (04/06/24 0600) Pulse: 98 (04/06/24 0600) Resp: 18 (04/06/24 08) Most Recent Temperature: 36.28 C (04/06/24 0600) Weight: 109.5 kg (241 lb 8 oz) (04/06/24 0415) SpO2: 95 % (04/06/24 08) Allergies: Levofloxacin Activity: as tolerated Diet: low sodium and low calorie Code Status: Full Code Condition on Discharge: good Indwelling Devices: none Isolation status: None Cognition: normal SEVERITY SCORES: [employer] Stroke Scale: 1A. LOC: 0 1B. Question: 2 1C. Commands: 0 2. Gaze: 0 3. Visual [place]: 0 4. Facial Palsy: 1 5A. Arm Left: 0 5B. Arm Right: 4 6A. Leg Left: 0 6B. Leg Right: 3 7. Ataxia: untestable 8. Sensory: 1 9. Aphasia: 3 10. Dysarthria: 2 11. Extinction: 0 Total: 16 CONSULTS ORDERED: ADULT OCCUPATIONAL THERAPY CONSULT IP ADULT PHYSICAL THERAPY CONSULT IP ADULT SPEECH THERAPY CONSULT IP (ACUTE CARE REHAB) CARE MANAGEMENT CONSULT IP NEUROLOGY CONSULT IP REHAB CONSULT IP REHAB CONSULT IP REFERRING PHYSICIAN: REF: SELF [address] ADDRESS AVAILABLE PRIMARY CARE PROVIDER: PCP: ADINA Rowell [id number] [facility] / [facility] [id number] (office) [phone] (fax) Note: To contact a physician responsible for this patients hospital care, please call [email or web address] [phone]. Cosigned by Aries Yee MD at 04/06/2024 5:30 PM EST Associated attestation - Aries Yee MD - 04/06/2024 5:30 PM EST I saw and evaluated the patient today. I have reviewed the resident/fellow physician note and agree. documented in this encounter Discharge Instructions * Discharge Instr - AVS* Juvencio Layne MD - 04/01/2024 3:29 PM EST Discharge Date: 04/05/2024 You may call Neurology at [phone] during business hours. For after-hours emergencies call [phone] and have the on-call Neurologist paged. The information below provides you with the instructions and the list of medications you need to betaking following discharge from the hospital. If you have any questions, please ask before leaving.Please carry this letter with you when you see your doctor in the clinic. If you have questions, you can reach us at the numbers above. Brief summary of your inpatient care: 74F with history of afib on xarelto, HTN, HLD, DMT2 who presented with L M1 occlusion and received mechanical thrombectomy with TICI3. MRI after procedure showed L MCA infarct with some petechial hemorrhage with stable bleed on repeat CTH. Etiology of the stroke was thought to be cardioembolic given lack of significant atherosclerotic disease on CTA and patient had history of atrial fibrillation.She was compliant with the medication so will start Eliquis instead of Xarelto on 04/13. She shouldstop aspirin at that time. She was found to be hypertensive so started on lisinopril. Metoprolol was increased due to intermittent tachycardia and atrial flutter/fibrillation. She received lasix given fluid retention and had good response. She was briefly on Unasyn for possible aspiration PNA but stopped given unremarkable labs and CXRs. Given lack of bowel movements, abdominal XR was done which showed mild stool burden; did have a bowel movement on 04/05 after receiving tap water enema. Upon discharge, she was also referred to lipid clinic due to mildly uncontrolled HLD for consideration of PCSK9 inhibitor. Discharged to [facility] on 04/06/2024. Your doctors during this hospitalization included: Dr. Cordero, Dr. Yee, Dr. Russell Diet: Stroke Diet (low sodium, low cholesterol, low fat, and low calories) Activity: As tolerated See your primary care physician (ADINA Rowell) in 1 week(s). See Neurology in 4-6 weeks. SPECIAL INSTRUCTIONS: - Start Eliquis on 04/13. Aspirin can be discontinued at this time - Patient started on Lisinopril while inpatient for BP control. 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 - Recommend checking BMP at rehab as she had been receiving Lasix while inpatient (not continued atdischarge) and was started on Lisinopril. - Referral to cardiology lipid clinic ordered Stroke education was given for the following: Activation of emergency medical system. Follow-up after discharge. Medications prescribed at discharge. Risk factors for stroke. Warning signs and symptoms of stroke. Patient given Epic Supply handouts: Risk Factors for Stroke Symptoms of a Stroke Discharge Instructions for Stroke Discharge Instructions for Transient Ischemic Attack (TIA) When to Use the Emergency Room (ER) Stroke: Taking Medications Make sure to bring the following items to your neuro follow-up appointment: (use the lines below as a check list when preparing for follow-up appointment) Medication list and medications in their bottles Copy of discharge instructions Any outside records Copies of any outside images Family member or friend A list of any questions you may have IF YOU HAVE ANY OF THE FOLLOWING SYMPTOMS, CALL 911 IMMEDIATELY. Stroke Symptoms: Give me 5 1. Walk - sudden trouble walking, dizziness, loss of balance or coordination 2. Talk - sudden confusion, trouble speaking or understanding 3. Reach - sudden weakness or numbness of the face, arm, or leg, especially on one side of the body 4. See - sudden trouble seeing in one or both eyes 5. Feel - sudden, severe headache with no cause documented in this encounter Progress Notes * David Troncoso MD - 04/05/2024 9:00 AM EST Progress Note - Physical Medicine & Rehabilitation [facility] [place] [address] Name: Verena Field Location: [facility] [place] A461/A Date: 04/05/2024 Time: 1:07 PM Admission Date: 03/30/2024 Attending Physician/Provider: Solitario Cordero MD Primary Care Physician/Provider: ADINA Rowell Admitting Diagnosis: Principal Problem: Acute ischemic left MCA stroke (HCC) Active Problems: Right hemiparesis (HCC) Mixed aphasia Gait abnormality Impaired mobility and ADLs Dysphagia due to recent stroke Resolved Problems: * No resolved hospital problems. * Subjective Pt resting comfortably in bed. Pt aphasic but in no apparent distress. Pt did have some non productive coughs. Recent Physical Therapy Assessment: P.T. Bed Mobility Supine-Sit: Dependent (x2) (04/03/24911) Sit-Supine: Dependent (x2) (04/03/24911) Transfers Sit-Stand: Maximal Assistance (Ax2) (03/31/24840) Stand-Sit: Maximal Assistance (Ax2) (03/31/24840) W/C-Bed/Mat: Maximal Assistance (Ax2) (03/31/24840) Recent Occupational Therapy Assessments: Self Care Able to provide self care: Yes (03/31/241032) Feeding: Minimal Assistance (Pt able to bring left hand to mouth while holding form but unable to process the need of piercing food with utensil) (03/31/241032) Grooming: Supervision (Please comment) (wash face) (04/03/24843) Dressing Upper Body: Maximal Assistance (manage gown) (04/03/24843) Lower Body: Dependent (manage socks) (04/03/24843) Functional Ambulation Assistive Device: No device (04/03/24843) Distance in feet:: 0 (04/03/24843) Level of Assistance: Not Tested (04/03/24843) Bed Mobility Supine-Sit: Dependent (x2) (04/03/24843) Sit-Supine: Dependent (x2) (04/03/24843) OT Transfers Sit-Stand: Maximal Assistance (x2) (03/31/241032) Stand-Sit: Maximal Assistance (x2) (03/31/241032) Bed-Chair: Maximal Assistance (x2 via stand pivot) (03/31/241032) CURRENT LEVEL OF FUNCTION: Weight Bearing Status: Weight bearing as tolerated (04/03/24911) Bed Mobility: Bed Mobility Supine-Sit: Dependent (x2) (04/03/24843) Sit-Supine: Dependent (x2) (04/03/24843) Transfer: OT Transfers Sit-Stand: Maximal Assistance (x2) (03/31/241032) Stand-Sit: Maximal Assistance (x2) (03/31/241032) Bed-Chair: Maximal Assistance (x2 via stand pivot) (03/31/241032) Ambulation: Functional Ambulation Assistive Device: No device (04/03/24843) Distance in feet:: 0 (04/03/24843) Level of Assistance: Not Tested (04/03/24843) Review of Systems: as per HPI Past Medical History: Diagnosis Date Atrial fibrillation (HCC) CA IN SITU BREAST (left) 03/15/2003 Endometrial cancer (HCC) 02/01/2013 HTN, goal below 140/90 MALIGN NEOPL BREAST NOS Malignant neoplasm of female breast (HCC) 07/04/1995 bilateral DCIS with involved margins Multiple pulmonary nodules NONE 02/15/2005 left stereo bx at [facility] by Dr. Watt Osteomyelitis of left foot (HCC) 07/30/2022 Pulmonary embolus (HCC) 07/02/2005 Recurrent pulmonary embolism (HCC) Past Surgical History: Procedure Laterality Date BREAST RECONSTRUCTION W/TRAM 01/29/01 right breast CAROTID (INTERNAL) ARTERY CATHETHER PLACEMENT N/A 03/30/2024 CATHETER PLACEMENT INTERNAL CAROTID ARTERY performed by Yannick Monteiro MD, PhD at OR [facility] [place] COMPLETE REMOVAL OF BREAST, SIMPLE 06/07/05 left simple mas. with implant at [facility] by DRAINAGE OF ABDOMINAL ABSCESS 12/17/2010 DRAINAGE OF ABDOMEN ABSCESS OPEN performed by ELENO BLEDSOE at OR [facility] [place] INCISION OF BREAST LESION, DEEP 07/04/95 right breast re-excision of involved margins NIPPLE/AREOLA RECONSTRUCTION 01/29/01 [facility] stage (Dr. Abdalla) PARTIAL AMPUTATION OF TOE Left 07/31/2022 AMPUTATION TOE INTERPHALANGEAL JOINT performed by Yonis Henriquez DO at [facility] PARTIAL MASTECTOMY 07/04/95 left breast segmental mastectomy PROSTHETIC MAT/MESH, ABD, NECROTIC, REMOVAL 12/17/2010 REMOVAL MESH ABDOMINAL WALL NECROTIZING SOFT TISSUE INFECTION performed by ELENO BLEDSOE at OR [facility] [place] RADIATION TREATMENT DELIVERY 08/10to09/18/95 left breast 5,040 cGy REMOVAL OF OVARY(S) age 14 Oopherectomy,Uni, REMOVE TONSILS & ADENOIDS, UNDER 10 age 3 Tonsillectomy/Adenoids,<10 Y/O REPAIR INITIAL INCISIONAL OR VENTRAL HERNIA; REDUCIBLE 12/17/2010 REPAIR INITIAL INCISIONAL /VENTRAL HERNIA REDUCIBLE performed by ELENO BLEDSOE at OR [facility] [place] SUCTION REMOVE FAT TISSUE, TRUNK 01/29/01 right breast THIGH OR KNEE SURGERY NEC 1997, 1998 Knee/Leg Other Procedures Unlisted TOTAL ABD HYSTERECTOMY W/WO REMOVAL OF TUBE(S) 12/17/2010 TOTAL ABDOMINAL HYSTERECTOMY WITH OR WITHOUT TUBES AND OVARIES performed by ELENO BLEDSOE at OR [facility] [place] VERTEBRAL ARTERY CATHETER PLACEMENT N/A 03/30/2024 CATHETER PLACEMENT VERTEBRAL ARTERY, performed by Yannick Monteiro MD, PhD at OR [facility] [place] Social History Tobacco Use Smoking status: Never Smokeless tobacco: Never Vaping Use Vaping status: Never Used Substance Use Topics Alcohol use: Yes Comment: rarely Drug use: No Family History Problem Relation Name Age of Onset Cancer Father prostate ca Diabetes Mother Heart Disorder Mother Stroke Mother Cancer Grandfather (Paternal) Heart Disorder Grandfather (Maternal) Heart Disorder Grandmother (Maternal) Stroke Grandmother (Maternal) Review of patient's allergies indicates: Allergen Reactions Levofloxacin Other (Please comment) and Rash Prolonged QT, interfered with Fleconide Current Facility-Administered Medications Medication Dose Route Frequency Provider senna-docusate (Senokot-S) 2 Tablet 2 Tablet Oral BID(AM/PM) Arian Russell, DO Insulin Glargine (Lantus) inj 16 Units 16 Units Subcutaneous HS insulin Isidra Santillan, DO Lisinopril (Prinivil) tab 5 mg 5 mg Oral Daily(AM) Arian Russell, DO Polyethylene Glycol 3350 (Miralax) oral powder 34 g 2 Packet Oral BID (0900,2100) Arian Russell,DO insulin aspart (NovoLOG) inj Subcutaneous With Meals and HS Arian Russell, DO Metoprolol Tartrate (Lopressor) tab 100 mg 100 mg Oral BID(AM/PM) Arian Russell, DO Enoxaparin (Lovenox) inj 40 mg 40 mg Subcutaneous Daily(AM) Arian Russell, DO hydrALAZINE (Apresoline) inj 10 mg 10 mg Intravenous Q6H PRN Arian Russell, DO aspirin chew tab 81 mg 81 mg Oral Daily(AM) Arian Russell, DO flecainide (Tambocor) tab 100 mg 100 mg Oral Q12H Arian Russell, DO dextrose 50% inj 25 mL 25 mL IV Push PRN Arian Russell, DO dextrose 50% inj 50 mL 50 mL IV Push PRN Arian Russell DO Ezetimibe (Zetia) tab 10 mg 10 mg Oral Daily(AM) Arian Russell DO glucagon (Glucagen) inj 1 mg 1 mg Intramuscular PRN Arian Russell DO Glucose (Glutose 15) 40 % gel 15 g of glucose 15 g of glucose Oral PRN Arian Russell DO Glucose (Glutose 15) 40 % gel 30 g of glucose 30 g of glucose Oral PRN Arian Russell DO glucose chew tab 16 g 16 g Oral PRN Arian Russell DO Objective PHYSICAL EXAM: BP: 131 mmHg/76 mmHg (04/05/24 1210) Pulse: 64 (04/05/24 1104) Resp: 18 (04/05/24 1104) Temp: 36.61 C (04/05/24 1104) Temp Summary: Temp Min: 36 C (96.8 F) Max: 36.7 C (98.1 F) SpO2: 97 % (04/05/24 1104) O2 flow rate: Supplemental O2 Delivery: Room Air, None (04/05/24 1104) Vital Signs Last 24 Hours: BP Min: 104/69 Max: 153/92 Pulse Av.9 Min: 64 Max: 107 Most Recent Temperature Av.3 C Min: 36 C Max: 36.72 C Resp Av.3 Min: 18 Max: 20 General: NAD; resting comfortably Respiratory: nonlabored breathing on room air Skin: warm, dry Psychiatric: not agitated NEURO/MSK: Mental Status & Orientation: awake, alert Attention: normal Language: aphasic Speech: unable to assess 2/2 aphasia Cranial Nerves: right facial asymmetry Motor: 0-1/5 strength in the right upper and lower extremity DATA REVIEW: Hemoglobin A1c Results: Lab Results Component Value Date/Time HEMOGLOBIN A1C - [facility] 7.2 (H) 03/30/2024 10:41 AM HEMOGLOBIN A1C - [facility] 7.6 (H) 08/11/2014 04:11 PM HEMOGLOBIN A1C - [facility] 5.5 08/25/2009 03:32 PM HEMOGLOBIN A1C - [facility] 5.6 01/08/2008 09:08 AM Recent Results (from the past 24 hours) GLUCOSE METER, POINT OF CARE Collection Time: 04/04/24 4:50 PM Result Value Ref Range GLUCOSE - POCT 189 (H) 70 - 120 mg/dL GLUCOSE METER, POINT OF CARE Collection Time: 04/04/24 9:58 PM Result Value Ref Range GLUCOSE - POCT 244 (H) 70 - 120 mg/dL BASIC METABOLIC PANEL Collection Time: 04/05/24 6:50 AM Result Value Ref Range BUN 37 (H) 6 - 20 mg/dL CREATININE 0.7 0.5 - 1.0 mg/dL EGFR >90 >=60 mL/min SODIUM 136 135 - 146 mmol/L POTASSIUM CHLORIDE 102 98 - 107 mmol/L CO2 ANION GAP GLUCOSE 203 (H) 70 - 120 mg/dL CALCIUM 8.7 8.4 - 10.2 mg/dL CBC Collection Time: 04/05/24 6:50 AM Result Value Ref Range WBC 9.51 4.00 - 10.80 K/uL RBC 4.82 3.85 - 5.15 M/uL HGB 15.3 12.0 - 15.3 g/dL HCT 46.2 (H) 36.0 - 45.2 % MCV 95.9 81.5 - 97.5 fL MCH 31.7 27.0 - 34.0 pg MCHC 33.1 32.0 - 36.0 g/dL RDW 13.2 11.5 - 15.5 % PLT 367 140 - 400 K/uL MPV 11.7 6.6 - 11.1 fL nRBCs 0 <=0 /100 WBCs GLUCOSE METER, POINT OF CARE Collection Time: 04/05/24 7:41 AM Result Value Ref Range GLUCOSE - POCT 224 (H) 70 - 120 mg/dL GLUCOSE METER, POINT OF CARE Collection Time: 04/05/24 11:42 AM Result Value Ref Range GLUCOSE - POCT 239 (H) 70 - 120 mg/dL GLUCOSE METER, POINT OF CARE Collection Time: 04/05/24 12:17 PM Result Value Ref Range GLUCOSE - POCT 209 (H) 70 - 120 mg/dL ASSESSMENT: Principal Problem: Acute ischemic left MCA stroke (HCC) (POA: Yes) Active Problems: Right hemiparesis (HCC) (POA: Yes) Mixed aphasia (POA: Yes) Gait abnormality (POA: Yes) Impaired mobility and ADLs (POA: Yes) Dysphagia due to recent stroke (POA: Yes) POA = Present On Admission Verena Field is a(n) 74 year old female PMHx Afib on Xarelto, recurrent PE, CAD, RBBB, HTN, T2DM, breast cancer s/p mastectomy, osteomyelitis of L foot s/p toe amputation in 2022 who presents withmobility and ADL deficits secondary to L MCA stroke . PLAN: Disposition Recommendation: IRF vs SNF; and daughter are supportive but pt requires at lot of assistance at this time Physiatry-Focused Considerations(s): Rehabilitation Diagnosis: Stroke Pertinent Medical Post-Acute Care Information: L MCA s/p thrombectomy with TICI 3 Ambulatory Dysfunction: not tested Speech/Cognition/Swallow: regular/thin Skin: prevent pressure injury Bowel: Miralax/Colace prn Bladder: barry cath. Pain: Tylenol prn Sleep: Melatonin prn PM&R will follow peripherally. Please reach out if patient's functional or medical status changes. Thank you for consulting Physical Medicine and Rehabilitation (PM&R / Physiatry). We appreciatethe opportunity to assist in the care of your patient. Please contact service via [employer] Role for further questions or concerns: PMRRESIDENTCONSULTS * Arian Russell DO - 04/05/2024 6:50 AM EST STROKE PROGRESS NOTE - Stroke / Vascular Neurology [facility] [place]-[address] [address] Name: Verena Field Location: [facility] [place] A461/A Date: 04/05/2024 Time: 10:04 AM SUBJECTIVE: Verena Field is a 74 year old patient initially seen for L M1 occlusion and s/p mechanical thrombectomy with TICI3. Changes since last visit: NAEO. She states she has some right sided abdominal pain and still has not had a bowel movement. She has history of hernia. Denies worsening of her current neurologic symptoms. 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 Watt Osteomyelitis of left foot (HCC) 07/30/2022 Pulmonary embolus (HCC) 07/02/2005 Recurrent pulmonary embolism (HCC) Pertinent past social history: Social History Tobacco Use Smoking status: Never Smokeless tobacco: Never Vaping Use Vaping status: Never Used Substance Use Topics Alcohol use: Yes Comment: rarely Drug use: No Current Medications: Note that completed medications (per the MAR) continue to display for 24 hours. Ordered medicationsto be given in the future also display. Current Facility-Administered Medications Medication Dose Route Frequency Provider Furosemide (Lasix) inj 40 mg 40 mg IV Push Once Arian Russell, DO senna-docusate (Senokot-S) 2 Tablet 2 Tablet Oral BID(AM/PM) Arian Russell, DO tap water enema 1 Enema 1 Enema Rectal Once Arian Russell, DO Insulin Glargine (Lantus) inj 16 Units 16 Units Subcutaneous HS insulin Isidra Santillan, DO Lisinopril (Prinivil) tab 5 mg 5 mg Oral Daily(AM) Arian Russell, DO Polyethylene Glycol 3350 (Miralax) oral powder 34 g 2 Packet Oral BID (0900,2100) Arian Russell,DO insulin aspart (NovoLOG) inj Subcutaneous With Meals and HS Arian Russell, DO Metoprolol Tartrate (Lopressor) tab 100 mg 100 mg Oral BID(AM/PM) Arian Russell, DO Enoxaparin (Lovenox) inj 40 mg 40 mg Subcutaneous Daily(AM) Arian Russell, DO hydrALAZINE (Apresoline) inj 10 mg 10 mg Intravenous Q6H PRN Arian Russell, DO aspirin chew tab 81 mg 81 mg Oral Daily(AM) Arian Russell, DO flecainide (Tambocor) tab 100 mg 100 mg Oral Q12H Arian Russell, DO dextrose 50% inj 25 mL 25 mL IV Push PRN Arian Russell, DO dextrose 50% inj 50 mL 50 mL IV Push PRN Arian Russell, DO Ezetimibe (Zetia) tab 10 mg 10 mg Oral Daily(AM) Arian Russell, glucagon (Glucagen) inj 1 mg 1 mg Intramuscular PRN Arian Russell, Glucose (Glutose 15) 40 % gel 15 g of glucose 15 g of glucose Oral PRN Arian Russell, Glucose (Glutose 15) 40 % gel 30 g of glucose 30 g of glucose Oral PRN Arian Russell, glucose chew tab 16 g 16 g Oral PRN Arian Russell, DO OBJECTIVE: Physical Examination: Most Recent Vital Signs: BP: 153 mmHg/92 mmHg (04/05/24916) Pulse: 107 (04/05/24916) Resp: 18 (04/05/24641) Temp: 36 C (04/05/24641) Temp Summary: Temp Min: 36 C (96.8 F) Max: 36.7 C (98.1 F) SpO2: 97 % (04/05/24641) O2 flow rate: Supplemental O2 Delivery: Room Air, None (04/05/24641) Weight: 110.7 kg (244 lb) (04/05/24 0236) Height: 167.6 cm (5' 6") (03/30/24 1900) Body mass index is 39.38 kg/m. Vital Signs Last 24 Hours: Systolic BP: Most Recent Systolic BP Av.4 mmHg Min: 113 mmHg Max: 153 mmHg Temperature: Most Recent Temperature Av.3 C Min: 36 C Max: 36.72 C Pulse: Pulse Av.4 Min: 68 Max: 107 Respirations: Resp Av.3 Min: 18 Max: 20 SpO2: SpO2 Av % Min: 94 % Max: 97 % General Examination: Constitutional: Appearance no deformities, well groomed, and in bed, somewhat frequent coughing or throat clearing while in room Head/face, ears, nose, throat: normocephalic, atraumatic Cardiovascular: normal heart sounds, regular rate, regular rhythm, normal pulses, and no carotid bruit Psychiatric: pleasant and in no acute distress Extremities: 1+ pitting edema in right arm and right leg but improved Neurologic Examination: Ophthalmoscopic: deferred Mental Status and Orientation: alert, awake, and following commands Memory: KAITLIN given aphasia Attention: normal Knowledge: KAITLIN given aphasia Language: expressive aphasia and following commands Speech: aphasic Cranial Nerves: CN 2 - no visual defect on confrontation and pupils round, equal, reactive to light CN 3, 4, 6 - extra-ocular movements intact and no nystagmus CN 5 - symmetrical sensation to V1-3 CN 7 - some facial asymmetry, right sided paresis CN 8 - intact hearing CN 9, 10 - did not assess CN 11 - asymmetric shoulder shrug CN 12 - KAITLIN Sensory: intact to light touch throughout Coordination: shaky but normal finger to nose on left upper extremity Gait: deferred due to fall risk Muscle Tone: right side flaccid Muscle exam: See below Reflexes: deferred SEVERITY SCORES: [employer] Stroke Scale: 1A. LOC: 0 1B. Question: 2 1C. Commands: 0 2. Gaze: 0 3. Visual [place]: 0 4. Facial Palsy: 1 5A. Arm Left: 0 5B. Arm Right: 4 6A. Leg Left: 0 6B. Leg Right: 3 7. Ataxia: untestable 8. Sensory: 0 9. Aphasia: 3 10. Dysarthria: 2 11. Extinction: 0 Total: 15 Personal Review and Interpretation of New Neuroimaging: CTA with complete left M1 occlusion and otherwise no significant atherosclerotic disease MRI brain with left MCA territory strokes and some petechial hemorrhage. No significant mass effect. I have reviewed the following Diagnostic Tests and noted significant findings as follows: TTE w/o bubble study: Interpretation Summary The examination is limited quality but adequate for evaluation of the referral indication. The qualitative LV ejection fraction is 60-64% (normal). The LV wall thickness is mildly increased (concentric). No LV segmental wall motion abnormalities. The right ventricular cavity is mildly dilated. The right ventricular systolic function is qualitatively normal. Mild aortic valve stenosis is present. There is no source of cardiac embolus within the limitations of a limited quality transthoracic echo. LABS: Labs reviewed as indicated below: LDL 115 A1c 7.2 IMPRESSION: 74F with history of afib on xarelto, HTN, HLD, DMT2 who presents with L M1 occlusion and is s/p thrombectomy with TICI3. NIHSS today at 15 and she is intermittently spontaneously moves her right leg but her right arm continues to remain flaccid. MRI shows expected L MCA infarct but with some hemorrhagic conversion (PH2) in MCA and CORINA territory and repeat CTH shows stable infarct. Etiology of stroke likely cardioembolic given lack of significant atherosclerotic disease and patient has history of atrial fibrillation. Per family, she is compliant with her xarelto and did not miss doses. She was hypertensive during this stay so lisinopril was started. She has tried atorvastatin in the past butseems to have gotten myopathies so is on zetia. LDL is not at goal and cannot go higher on zetia soshould consider PCSK9 inhibitor agent. She has not had a bowel movement since 03/30 and complains of right sided abdominal pain. XR shows mild stool burden but will order tap water enema to see if it can produce a bowel movvement. She briefly had fever during some aspiration events so there was concern for aspiration pneumonia and Unasyn was started. However, fever improved spontaneously and she had no increased white count. CXRs were largely unremarkable so Unasyn was stopped. Per the , she tends to clear her throat and cough a lot at home already so this is not too unusual for her. RECOMMENDATIONS / PLAN: Left M1 Occlusion s/p thrombectomy Monitoring -Neurochecks q4h checks -SBP goal < 180 -stat head CT with changes in mental status or new neuro symptoms Treatment -Diet soft and bite sized -Stopped Unasyn given low concern for aspiration pneumonia. Will consider interval CXR if worseningrespiratory function or fevers -Abdominal XR with mild stool burden. Tap water enema ordered -Lisinopril to 5 mg daily -Continue CREDIT CARD ANALYST Zetia. Can consider PCSK9 inhibitor outpatient along with referral to lipid clinic -Hold Xarelto for 2 weeks from stroke date. Continue ASA 81 mg daily in the interim. As she was compliant, will switch to eliquis on 04/13 when restarting AC -Monitor fluid status daily. 40mg IV lasix today. Daily BMPs -Hydralazine PRN for SBP over 180 -HOB flat or below 30 if able -PT/OT/ST/rehab consults -Stroke Education -Neurosurgery follow up in 3 months The patient was examined and was discussed with Dr. Yee. Cosigned by Aries Yee MD at 04/05/2024 4:41 PM EST Associated attestation - Aries Yee MD - 04/05/2024 4:41 PM EST I saw and evaluated the patient today. I have reviewed the resident/fellow physician note and agree. * Isidra Santillan DO - 04/04/2024 6:47 AM EST STROKE PROGRESS NOTE - Stroke / Vascular Neurology [facility] [place]-[address] [address] Name: Verena Field Location: [facility] [place] A461/A Date: 04/04/2024 Time: 6:47 AM SUBJECTIVE: Verena Field is a 74 year old patient initially seen for L M1 occlusion and s/p mechanical thrombectomy with TICI3. Changes since last visit: Patient appears comfortable this morning and shakes her head when asked about pain or new symptoms. 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 Watt Osteomyelitis of left foot (HCC) 07/30/2022 Pulmonary embolus (HCC) 07/02/2005 Recurrent pulmonary embolism (HCC) Pertinent past social history: Social History Tobacco Use Smoking status: Never Smokeless tobacco: Never Vaping Use Vaping status: Never Used Substance Use Topics Alcohol use: Yes Comment: rarely Drug use: No Current Medications: Note that completed medications (per the MAR) continue to display for 24 hours. Ordered medicationsto be given in the future also display. Current Facility-Administered Medications Medication Dose Route Frequency Provider Lisinopril (Prinivil) tab 5 mg 5 mg Oral Daily(AM) Arian Russell DO Polyethylene Glycol 3350 (Miralax) oral powder 34 g 2 Packet Oral BID (0900,2100) Russell, Arian Yeon,DO senna-docusate (Senokot-S) 2 Tablet 2 Tablet Oral Daily(AM) Arian Russell, Furosemide (Lasix) tab 40 mg 40 mg Oral Daily PRN Arian Russell, insulin aspart (NovoLOG) inj Subcutaneous With Meals and HS Arian Russell, DO Metoprolol Tartrate (Lopressor) tab 100 mg 100 mg Oral BID(AM/PM) Arian Russell, Enoxaparin (Lovenox) inj 40 mg 40 mg Subcutaneous Daily(AM) Arian Russell, hydrALAZINE (Apresoline) inj 10 mg 10 mg Intravenous Q6H PRN Arian Russell, aspirin chew tab 81 mg 81 mg Oral Daily(AM) Arian Russell, flecainide (Tambocor) tab 100 mg 100 mg Oral Q12H Arian Russell, dextrose 50% inj 25 mL 25 mL IV Push PRN Arian Russell, dextrose 50% inj 50 mL 50 mL IV Push PRN Arian Russell, DO Ezetimibe (Zetia) tab 10 mg 10 mg Oral Daily(AM) Arian Russell, glucagon (Glucagen) inj 1 mg 1 mg Intramuscular PRN Arian Russell, Glucose (Glutose 15) 40 % gel 15 g of glucose 15 g of glucose Oral PRN Arian Russell, Glucose (Glutose 15) 40 % gel 30 g of glucose 30 g of glucose Oral PRN Arian Russell, DO glucose chew tab 16 g 16 g Oral PRN Arian Russell, DO OBJECTIVE: Physical Examination: Most Recent Vital Signs: BP: 104 mmHg/60 mmHg (04/04/24199) Pulse: 77 (04/04/24199) Resp: 20 (04/04/24199) Temp: 36.39 C (04/04/24199) Temp Summary: Temp Min: 36 C (96.8 F) Max: 36.8 C (98.2 F) SpO2: 97 % (04/04/24199) O2 flow rate: Supplemental O2 Delivery: Room Air, None (12/15/24 0200) Weight: 109.5 kg (241 lb 8 oz) (04/04/24 0200) Height: 167.6 cm (5' 6") (03/30/24 1900) Body mass index is 38.98 kg/m. Vital Signs Last 24 Hours: Systolic BP: Most Recent Systolic BP Av.7 mmHg Min: 104 mmHg Max: 169 mmHg Temperature: Most Recent Temperature Av.5 C Min: 36 C Max: 36.78 C Pulse: Pulse Av.8 Min: 68 Max: 92 Respirations: Resp Av.4 Min: 20 Max: 22 SpO2: SpO2 Av.6 % Min: 95 % Max: 98 % Afebrile, BP labile General Examination: Constitutional: Appearance no deformities, well groomed, and in bed, no cough during exam Head/face, ears, nose, throat: normocephalic, atraumatic Cardiovascular: normal heart sounds, regular rate, regular rhythm Psychiatric: pleasant and in no acute distress Extremities: 2+ pitting edema in right arm and right leg Neurologic Examination: Mental Status and Orientation: alert, awake, and following commands Memory: KAITLIN given aphasia Attention: normal Knowledge: KAITLIN given aphasia Language: expressive aphasia, but following commands Speech: aphasic, trying to mouth words Cranial Nerves: CN 2 - no visual defect on confrontation and pupils round, equal, reactive to light CN 3, 4, 6 - extra-ocular movements intact and no nystagmus CN 5 - symmetrical sensation to V1-3 CN 7 - mild lower facial asymmetry CN 8 - intact hearing CN 9, 10 - uvula midline CN 11 - asymmetric shoulder shrug, but able to perform bilaterally0 CN 12 - KAITLIN Sensory: intact to light touch throughout Coordination: normal finger to nose on left upper extremity Gait: deferred due to fall risk Muscle Tone: right side flaccid Muscle exam: See below Reflexes: deferred SEVERITY SCORES: National [employer] Stroke Scale: 1A. LOC: 0 1B. Question: 2 1C. Commands: 0 2. Gaze: 0 3. Visual Schofield: 0 4. Facial Palsy: 1 5A. Arm Left: 0 5B. Arm Right: 4 6A. Leg Left: 0 6B. Leg Right: 3 7. Ataxia: untestable 8. Sensory: 0 9. Aphasia: 3 10. Dysarthria: 2 11. Extinction: 0 Total: 15 Personal Review and Interpretation of New Neuroimaging: CTA with complete left M1 occlusion and otherwise no significant atherosclerotic disease MRI brain with left MCA territory strokes and some petechial hemorrhage. No significant mass effect. I have reviewed the following Diagnostic Tests and noted significant findings as follows: TTE w/o bubble study: Interpretation Summary The examination is limited quality but adequate for evaluation of the referral indication. The qualitative LV ejection fraction is 60-64% (normal). The LV wall thickness is mildly increased (concentric). No LV segmental wall motion abnormalities. The right ventricular cavity is mildly dilated. The right ventricular systolic function is qualitatively normal. Mild aortic valve stenosis is present. There is no source of cardiac embolus within the limitations of a limited quality transthoracic echo. LABS: Laboratory Values: reviewed. -- Brief labs below include the 7 most recent results over the past week. Chemistry Panel: Lab results within last 7 days (see chart for full results) Units 04/04/24 0723 04/03/24 0654 04/02/24 0556 04/01/24 0721 03/31/24 0424 03/30/24 1007 SODIUM mmol/L 136 137 135 137 142 139 POTASSIUM mmol/L 4.7 4.1 4.5 4.5 3.7 3.9 CHLORIDE mmol/L 102 103 104 106 106 104 CO2 mmol/L 20* 22 20* 20* 23 17* EGFR mL/min 88 90 >90 >90 >90 >90 BUN mg/dL 34* 26* 17 16 11 16 CREATININE mg/dL 0.7 0.7 0.6 0.7 0.6 0.5 GLUCOSE mg/dL 213* 180* 184* 198* 187* 246* CALCIUM mg/dL 8.8 8.3* 8.3* 8.2* 7.9* 7.7* Magnesium mg/dL -- -- -- -- -- 2.0 Phosphorus mg/dL -- -- -- -- -- 2.8 ANION GAP mmol/L 14 12 11 11 13 18* Complete Blood Count: Lab results within last 7 days (see chart for full results) Units 04/04/24 1016 04/03/24 0654 04/02/24 0556 04/01/24 0721 03/31/24 2225 03/31/24 0424 03/30/24 1007 WBC K/uL 12.11* 7.94 9.18 8.55 9.64 8.81 10.26 HGB g/dL 14.7 14.0 13.8 12.6 12.4 12.3 13.1 HCT % 45.7* 42.0 41.3 37.2 36.7 37.4 39.5 PLT K/uL 390 246 276 236 243 258 267 MCV fL 96.2 96.1 94.3 92.5 94.1 95.7 95.2 IMPRESSION: Verena Field is a 74 year old female with history of afib on xarelto, HTN, HLD, DMT2 who presents with L M1 occlusion and is s/p thrombectomy with TICI3. Exam is grossly stable from yesterday; still with flaccid paresis of RUE>RLE. Does show some improvement in aphasia. Given symptom sheet for aphasia to allow her to communicate more easily. Etiology of stroke likely cardioembolic given lack of significant atherosclerotic disease and patient has history of atrial fibrillation. Was previously on Xarelto and reportedly adherent; may need to switch to alternate agent after discharge. She was hypertensive during this stay so lisinopril was started. She has tried atorvastatin in the past but seems to have gotten myopathies so is on zetia.LDL is not at goal and cannot go higher on zetia so should consider PCSK9 inhibitor agent. Mild leukocytosis on CBC today, likely hemoconcentration given concurrent rise in BUN and PLT. Labsotherwise grossly stable and no clinical signs of infection on exam. RECOMMENDATIONS / PLAN: Left M1 Occlusion s/p thrombectomy Monitoring -Neurochecks q4h checks -SBP goal < 180 -stat head CT with changes in mental status or new neuro symptoms Treatment -Diet soft and bite sized -Lisinopril 10 mg daily -Continue CREDIT CARD ANALYST Zetia - Can consider PCSK9 inhibitor outpatient along with referral to lipid clinic -Hold Xarelto for 2 weeks from stroke date (03/30) - Consider switching to eliquis on 04/13 when restarting AC - Continue ASA 81 mg daily -Lasix 20mg IV x1 and ordered PRN per home orders. Will monitor fluid status daily -Hydralazine PRN for SBP over 180 -HOB flat or below 30 if able -PT/OT/ST/rehab consults -Stroke Education -Neurosurgery follow up in 3 months The patient was examined and was discussed with Dr. Cordero. Isidra Santillan DO Cosigned by Solitario Cordero MD at 04/04/2024 2:47 PM EST Associated attestation - Solitario Cordero MD - 04/04/2024 2:47 PM EST I saw and evaluated the patient today. I have reviewed the resident/fellow physician note and agree. * Arian Russell DO - 04/03/2024 6:47 AM EST STROKE PROGRESS NOTE - Stroke / Vascular Neurology [facility] [place]-[address] [address] Name: Verena Field Location: [facility] [place] A461/[id number] Date: 04/03/2024 Time: 9:47 AM SUBJECTIVE: Verena Field is a 74 year old patient initially seen for L M1 occlusion and s/p mechanical thrombectomy with TICI3. Changes since last visit: NAEO. She feels her hand is less swollen after the lasix. Her family spoke to yesterday for rehab options and is currently pending authorization for [facility]. 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 Watt Osteomyelitis of left foot (HCC) 07/30/2022 Pulmonary embolus (HCC) 07/02/2005 Recurrent pulmonary embolism (HCC) Pertinent past social history: Social History Tobacco Use Smoking status: Never Smokeless tobacco: Never Vaping Use Vaping status: Never Used Substance Use Topics Alcohol use: Yes Comment: rarely Drug use: No Current Medications: Note that completed medications (per the MAR) continue to display for 24 hours. Ordered medicationsto be given in the future also display. Current Facility-Administered Medications Medication Dose Route Frequency Provider Furosemide (Lasix) inj 60 mg 60 mg IV Push Once Arian Russell, Lisinopril (Prinivil) tab 5 mg 5 mg Oral Daily(AM) Arian Russell, Polyethylene Glycol 3350 (Miralax) oral powder 34 g 2 Packet Oral BID (0900,2100) Arian Russell, senna-docusate (Senokot-S) 2 Tablet 2 Tablet Oral Daily(AM) Arian Russell, Furosemide (Lasix) tab 40 mg 40 mg Oral Daily PRN Arian Russell, insulin aspart (NovoLOG) inj Subcutaneous With Meals and HS Arian Russell, DO Metoprolol Tartrate (Lopressor) tab 100 mg 100 mg Oral BID(AM/PM) Arian Russell, Enoxaparin (Lovenox) inj 40 mg 40 mg Subcutaneous Daily(AM) Arian Russell, hydrALAZINE (Apresoline) inj 10 mg 10 mg Intravenous Q6H PRN Arian Russell, aspirin chew tab 81 mg 81 mg Oral Daily(AM) Arian Russell, DO flecainide (Tambocor) tab 100 mg 100 mg Oral Q12H Arian Russell, dextrose 50% inj 25 mL 25 mL IV Push PRN Arian Russell, dextrose 50% inj 50 mL 50 mL IV Push PRN Arian Russell, DO Ezetimibe (Zetia) tab 10 mg 10 mg Oral Daily(AM) Arian Russell, DO glucagon (Glucagen) inj 1 mg 1 mg Intramuscular PRN Arian Russell, DO Glucose (Glutose 15) 40 % gel 15 g of glucose 15 g of glucose Oral PRN Arian Russell, DO Glucose (Glutose 15) 40 % gel 30 g of glucose 30 g of glucose Oral PRN Arian Russell, DO glucose chew tab 16 g 16 g Oral PRN Arian Russell, DO OBJECTIVE: Physical Examination: Most Recent Vital Signs: BP: 112 mmHg/71 mmHg (04/03/24609) Pulse: 86 (04/03/24609) Resp: 20 (04/03/24609) Temp: 36.5 C (04/03/24609) Temp Summary: Temp Min: 36.1 C (97 F) Max: 37.5 C (99.5 F) SpO2: 96 % (04/03/24609) O2 flow rate: Supplemental O2 Delivery: Room Air, None (04/03/24609) Weight: 109 kg (240 lb 4.8 oz) (04/03/24414) Height: 167.6 cm (5' 6") (03/30/24 1900) Body mass index is 38.79 kg/m. Vital Signs Last 24 Hours: Systolic BP: Most Recent Systolic BP Av.4 mmHg Min: 110 mmHg Max: 140 mmHg Temperature: Most Recent Temperature Av.8 C Min: 36.11 C Max: 37.5 C Pulse: Pulse Av.2 Min: 69 Max: 119 Respirations: Resp Av Min: 20 Max: 20 SpO2: SpO2 Av.8 % Min: 92 % Max: 98 % General Examination: Constitutional: Appearance no deformities, well groomed, and in bed, somewhat frequent coughing or throat clearing while in room Head/face, ears, nose, throat: normocephalic, atraumatic Cardiovascular: normal heart sounds, regular rate, regular rhythm, normal pulses, and no carotid bruit Psychiatric: pleasant and in no acute distress Extremities: 2+ pitting edema in right arm and right leg but improved from yesterday Neurologic Examination: Ophthalmoscopic: deferred Mental Status and Orientation: alert, awake, and following commands Memory: KAITLIN given aphasia Attention: normal Knowledge: KAITLIN given aphasia Language: expressive aphasia and following commands Speech: aphasic Cranial Nerves: CN 2 - no visual defect on confrontation and pupils round, equal, reactive to light CN 3, 4, 6 - extra-ocular movements intact and no nystagmus CN 5 - symmetrical sensation to V1-3 CN 7 - some facial asymmetry CN 8 - intact hearing CN 9, 10 - did not assess CN 11 - asymmetric shoulder shrug CN 12 - KAITLIN Sensory: intact to light touch throughout Coordination: shaky but normal finger to nose on left upper extremity Gait: deferred due to fall risk Muscle Tone: right side flaccid Muscle exam: See below Reflexes: deferred SEVERITY SCORES: National [employer] Stroke Scale: 1A. LOC: 0 1B. Question: 2 1C. Commands: 0 2. Gaze: 0 3. Visual Schofield: 0 4. Facial Palsy: 1 5A. Arm Left: 0 5B. Arm Right: 4 6A. Leg Left: 0 6B. Leg Right: 3 7. Ataxia: untestable 8. Sensory: 0 9. Aphasia: 3 10. Dysarthria: 2 11. Extinction: 0 Total: 15 Personal Review and Interpretation of New Neuroimaging: CTA with complete left M1 occlusion and otherwise no significant atherosclerotic disease MRI brain with left MCA territory strokes and some petechial hemorrhage. No significant mass effect. I have reviewed the following Diagnostic Tests and noted significant findings as follows: TTE w/o bubble study: Interpretation Summary The examination is limited quality but adequate for evaluation of the referral indication. The qualitative LV ejection fraction is 60-64% (normal). The LV wall thickness is mildly increased (concentric). No LV segmental wall motion abnormalities. The right ventricular cavity is mildly dilated. The right ventricular systolic function is qualitatively normal. Mild aortic valve stenosis is present. There is no source of cardiac embolus within the limitations of a limited quality transthoracic echo. LABS: Labs reviewed as indicated below: LDL 115 A1c 7.2 IMPRESSION: 74F with history of afib on xarelto, HTN, HLD, DMT2 who presents with L M1 occlusion and is s/p thrombectomy with TICI3. NIHSS today at 15 and she is moving her right leg more but her right arm continues to remain flaccid. MRI shows expected L MCA infarct but with some hemorrhagic conversion (PH2) in MCA and CORINA territory and repeat CTH shows stable infarct. Etiology of stroke likely cardioembolic given lack of significant atherosclerotic disease and patient has history of atrial fibrillation. Per family, she is compliant with her xarelto and did not miss doses. She was hypertensive during this stay so lisinopril was started. She has tried atorvastatin in the past but seems to have gotten my opathies so is on zetia. LDL is not at goal and cannot go higher on zetia so should consider PCSK9 inhibitor agent. She briefly had fever during some aspiration events so there was concern for aspiration pneumonia and Unasyn was started. However, fever improved spontaneously and she had no increased white count. CXRs were largely unremarkable so Unasyn was stopped. Per the , she tends to clear her throat and cough a lot at home already so this is not too unusual for her. RECOMMENDATIONS / PLAN: Left M1 Occlusion s/p thrombectomy Monitoring -Neurochecks q4h checks -SBP goal < 180 -stat head CT with changes in mental status or new neuro symptoms Treatment -Diet soft and bite sized -Stopped Unasyn given low concern for aspiration pneumonia. Will consider interval CXR if worseningrespiratory function or fevers -Decrease lisinopril to 5 mg daily given low normal blood pressures -Continue CREDIT CARD ANALYST Zetia. Can consider PCSK9 inhibitor outpatient along with referral to lipid clinic -Hold Xarelto for 2 weeks from stroke date. Continue ASA 81 mg daily in the interim. As she was compliant, can consider switching to eliquis on 04/13 when restarting AC -Monitor fluid status daily. Lasix 60 mg today again and will reassess. Daily BMPs -Pending BNP -Hydralazine PRN for SBP over 180 -HOB flat or below 30 if able -PT/OT/ST/rehab consults -Stroke Education -Neurosurgery follow up in 3 months The patient was examined and was discussed with Dr. Cordero. Cosigned by Solitario Cordero MD at 04/03/2024 6:33 PM EST Associated attestation - Solitario Cordero MD - 04/03/2024 6:33 PM EST I saw and evaluated the patient today. I have reviewed the resident/fellow physician note and agree. * Arian Russell DO - 04/02/2024 6:57 AM EST STROKE PROGRESS NOTE - Stroke / Vascular Neurology [facility] [place]-[address] [address] Name: Verena Field Location: [facility] [place] A461/A Date: 04/02/2024 Time: 10:39 AM SUBJECTIVE: Verena Field is a 74 year old patient initially seen for L M1 occlusion and s/p mechanical thrombectomy with TICI3. Changes since last visit: NAEO. She states her swallowing feels a little better. Denies any other new symptoms at this time including headache, pain, or worsening weakness. 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 Watt Osteomyelitis of left foot (HCC) 07/30/2022 Pulmonary embolus (HCC) 07/02/2005 Recurrent pulmonary embolism (HCC) Pertinent past social history: Social History Tobacco Use Smoking status: Never Smokeless tobacco: Never Vaping Use Vaping status: Never Used Substance Use Topics Alcohol use: Yes Comment: rarely Drug use: No Current Medications: Note that completed medications (per the MAR) continue to display for 24 hours. Ordered medicationsto be given in the future also display. Current Facility-Administered Medications Medication Dose Route Frequency Provider Furosemide (Lasix) tab 40 mg 40 mg Oral Daily PRN Arian Russell, Polyethylene Glycol 3350 (Miralax) oral powder 17 g 1 Packet Oral Daily(AM) Arian Russell DO senna-docusate (Senokot-S) 1 Tablet 1 Tablet Oral Daily(AM) Arian Russell, Enoxaparin (Lovenox) inj 40 mg 40 mg Subcutaneous Daily(AM) Arian Russell DO hydrALAZINE (Apresoline) inj 10 mg 10 mg Intravenous Q6H PRN Arian Russell DO Lisinopril (Prinivil) tab 10 mg 10 mg Oral Daily(AM) Arian Russell, Metoprolol Tartrate (Lopressor) tab 50 mg 50 mg Oral BID(AM/PM) Arian Russell, DO aspirin chew tab 81 mg 81 mg Oral Daily(AM) Arian Russell, DO flecainide (Tambocor) tab 100 mg 100 mg Oral Q12H Arian Russell, DO insulin aspart (NovoLOG) inj Subcutaneous With Meals and HS Arian Russell, DO dextrose 50% inj 25 mL 25 mL IV Push PRN Arian Russell, dextrose 50% inj 50 mL 50 mL IV Push PRN Arian Russell, DO Ezetimibe (Zetia) tab 10 mg 10 mg Oral Daily(AM) Arian Russell, DO glucagon (Glucagen) inj 1 mg 1 mg Intramuscular PRN Arian Russell, Glucose (Glutose 15) 40 % gel 15 g of glucose 15 g of glucose Oral PRN Arian Russell, DO Glucose (Glutose 15) 40 % gel 30 g of glucose 30 g of glucose Oral PRN Arian Russell, glucose chew tab 16 g 16 g Oral PRN Arian Russell, DO OBJECTIVE: Physical Examination: Most Recent Vital Signs: BP: 123 mmHg/75 mmHg (04/02/24 1003) Pulse: 119 (04/02/24 1003) Resp: 24 (04/02/24 0603) Temp: 36.89 C (04/02/24 1007) Temp Summary: Temp Min: 35.8 C (96.4 F) Max: 37.7 C (99.9 F) SpO2: 96 % (04/02/24 0603) O2 flow rate: Supplemental O2 Delivery: Room Air, None (04/02/24 0800) Weight: 110.5 kg (243 lb 9.7 oz) (04/02/24 0259) Height: 167.6 cm (5' 6") (03/30/24 1900) Body mass index is 39.32 kg/m. Vital Signs Last 24 Hours: Systolic BP: Most Recent Systolic BP Av mmHg Min: 119 mmHg Max: 173 mmHg Temperature: Most Recent Temperature Av.8 C Min: 35.78 C Max: 37.72 C Pulse: Pulse Av.4 Min: 67 Max: 124 Respirations: Resp Av.6 Min: 18 Max: 26 SpO2: SpO2 Av.9 % Min: 91 % Max: 99 % General Examination: Constitutional: Appearance no deformities, well groomed, and in bed, somewhat frequent coughing or throat clearing while in room Head/face, ears, nose, throat: normocephalic, atraumatic Cardiovascular: normal heart sounds, regular rate, regular rhythm, normal pulses, and no carotid bruit Psychiatric: pleasant and in no acute distress Extremities: 2+ pitting edema in right arm and right leg Neurologic Examination: Ophthalmoscopic: deferred Mental Status and Orientation: alert, awake, and following commands Memory: KAITLIN given aphasia Attention: normal Knowledge: KAITLIN given aphasia Language: expressive aphasia and following commands Speech: aphasic Cranial Nerves: CN 2 - no visual defect on confrontation and pupils round, equal, reactive to light CN 3, 4, 6 - extra-ocular movements intact and no nystagmus CN 5 - symmetrical sensation to V1-3 CN 7 - some facial asymmetry CN 8 - intact hearing CN 9, 10 - did not assess CN 11 - asymmetric shoulder shrug CN 12 - KAITLIN Sensory: intact to light touch throughout Coordination: shaky but normal finger to nose on left upper extremity Gait: deferred due to fall risk Muscle Tone: right side flaccid Muscle exam: See below Reflexes: deferred SEVERITY SCORES: National [employer] Stroke Scale: 1A. LOC: 0 1B. Question: 2 1C. Commands: 0 2. Gaze: 0 3. Visual Schofield: 0 4. Facial Palsy: 1 5A. Arm Left: 0 5B. Arm Right: 4 6A. Leg Left: 0 6B. Leg Right: 3 7. Ataxia: untestable 8. Sensory: 0 9. Aphasia: 3 10. Dysarthria: 2 11. Extinction: 0 Total: 15 Personal Review and Interpretation of New Neuroimaging: CTA with complete left M1 occlusion and otherwise no significant atherosclerotic disease MRI brain with left MCA territory strokes and some petechial hemorrhage. No significant mass effect. I have reviewed the following Diagnostic Tests and noted significant findings as follows: TTE w/o bubble study: Interpretation Summary The examination is limited quality but adequate for evaluation of the referral indication. The qualitative LV ejection fraction is 60-64% (normal). The LV wall thickness is mildly increased (concentric). No LV segmental wall motion abnormalities. The right ventricular cavity is mildly dilated. The right ventricular systolic function is qualitatively normal. Mild aortic valve stenosis is present. There is no source of cardiac embolus within the limitations of a limited quality transthoracic echo. LABS: Labs reviewed as indicated below: LDL 115 A1c 7.2 IMPRESSION: 74F with history of afib on xarelto, HTN, HLD, DMT2 who presents with L M1 occlusion and is s/p thrombectomy with TICI3. NIHSS today at 15 and she is moving her right leg more but her right arm continues to remain flaccid. MRI shows expected L MCA infarct but with some hemorrhagic conversion (PH2) in MCA and CORINA territory and repeat CTH shows stable infarct. Etiology of stroke likely cardioembolic given lack of significant atherosclerotic disease and patient has history of atrial fibrillation. Per family, she is compliant with her xarelto and did not miss doses. She was hypertensive during this stay so lisinopril was started. She has tried atorvastatin in the past but seems to have gotten my opathies so is on zetia. LDL is not at goal and cannot go higher on zetia so should consider PCSK9 inhibitor agent. She briefly had fever during some aspiration events so there was concern for aspiration pneumonia and Unasyn was started. However, fever improved spontaneously and she had no increased white count. CXRs were largely unremarkable so Unasyn was stopped. Per the , she tends to clear her throat and cough a lot at home already so this is not too unusual for her. RECOMMENDATIONS / PLAN: Left M1 Occlusion s/p thrombectomy Monitoring -Neurochecks q4h checks -SBP goal < 180 -stat head CT with changes in mental status or new neuro symptoms Treatment -Diet soft and bite sized -Stopped Unasyn given low concern for aspiration pneumonia. Will consider interval CXR if worseningrespiratory function or fevers -Lisinopril 10 mg daily -Continue CREDIT CARD ANALYST Zetia. Can consider PCSK9 inhibitor outpatient along with referral to lipid clinic -Hold Xarelto for 2 weeks from stroke date. Continue ASA 81 mg daily in the interim. As she was compliant, can consider switching to eliquis on 04/13 when restarting AC -Lasix 20mg IV x1 and ordered PRN per home orders. Will monitor fluid status daily -Hydralazine PRN for SBP over 180 -HOB flat or below 30 if able -PT/OT/ST/rehab consults -Stroke Education -Neurosurgery follow up in 3 months The patient was examined and was discussed with Dr. Pulakanti. Cosigned by Solitario Cordero MD at 04/02/2024 6:01 PM EST Associated attestation - Solitario Cordero MD - 04/02/2024 6:01 PM EST I saw and evaluated the patient today. I have reviewed the resident/fellow physician note and agree. * David Troncoso MD - 04/01/2024 3:00 PM EST Progress Note - Physical Medicine & Rehabilitation [facility] [place]-[address] [address] Name: Verena Field Location: [facility] [place] A461/A Date: 04/01/2024 Time: 10:28 PM Admission Date: 03/30/2024 Attending Physician/Provider: Solitario Cordero MD Primary Care Physician/Provider: ADINA Rowell Admitting Diagnosis: Active Problems: Acute ischemic left MCA stroke (HCC) Right hemiparesis (HCC) Mixed aphasia Gait abnormality Impaired mobility and ADLs Dysphagia due to recent stroke Resolved Problems: * No resolved hospital problems. * Subjective Daughter and at bedside. Discussed post acute care options with pt and family. Pt participation limited due to aphasia. Recent Physical Therapy Assessment: P.T. Bed Mobility Supine-Sit: Maximal Assistance (Ax2) (03/31/24840) Transfers Sit-Stand: Maximal Assistance (Ax2) (03/31/24840) Stand-Sit: Maximal Assistance (Ax2) (03/31/24840) W/C-Bed/Mat: Maximal Assistance (Ax2) (03/31/24840) Recent Occupational Therapy Assessments: Self Care Able to provide self care: Yes (03/31/241032) Feeding: Minimal Assistance (Pt able to bring left hand to mouth while holding form but unable to process the need of piercing food with utensil) (03/31/241032) Grooming: Minimal Assistance (comb hair with left hand) (03/31/241032) Dressing Upper Body: Maximal Assistance (03/31/241032) Lower Body: Dependent (03/31/241032) Bed Mobility Supine-Sit: Maximal Assistance (x2) (03/31/241032) OT Transfers Sit-Stand: Maximal Assistance (x2) (03/31/241032) Stand-Sit: Maximal Assistance (x2) (03/31/241032) Bed-Chair: Maximal Assistance (x2 via stand pivot) (03/31/241032) CURRENT LEVEL OF FUNCTION: Weight Bearing Status: Weight bearing as tolerated (03/31/24 0841) Bed Mobility: Bed Mobility Supine-Sit: Maximal Assistance (x2) (03/31/241032) Transfer: OT Transfers Sit-Stand: Maximal Assistance (x2) (03/31/241032) Stand-Sit: Maximal Assistance (x2) (03/31/241032) Bed-Chair: Maximal Assistance (x2 via stand pivot) (03/31/241032) Ambulation: Review of Systems: as per HPI Past Medical History: Diagnosis Date Atrial fibrillation (HCC) CA IN SITU BREAST (left) 03/15/2003 Endometrial cancer (HCC) 02/01/2013 HTN, goal below 140/90 MALIGN NEOPL BREAST NOS Malignant neoplasm of female breast (HCC) 07/04/1995 bilateral DCIS with involved margins Multiple pulmonary nodules NONE 02/15/2005 left stereo bx at [facility] by Dr. Watt Osteomyelitis of left foot (HCC) 07/30/2022 Pulmonary embolus (HCC) 07/02/2005 Recurrent pulmonary embolism (HCC) Past Surgical History: Procedure Laterality Date BREAST RECONSTRUCTION W/TRAM 01/29/01 right breast CAROTID (INTERNAL) ARTERY CATHETHER PLACEMENT N/A 03/30/2024 CATHETER PLACEMENT INTERNAL CAROTID ARTERY performed by Yannick Monteiro MD, PhD at OR [facility] [place] COMPLETE REMOVAL OF BREAST, SIMPLE 06/07/05 left simple mas. with implant at [facility] by DRAINAGE OF ABDOMINAL ABSCESS 12/17/2010 DRAINAGE OF ABDOMEN ABSCESS OPEN performed by ELENO BLEDSOE at [facility] INCISION OF BREAST LESION, DEEP 07/04/95 right breast re-excision of involved margins NIPPLE/AREOLA RECONSTRUCTION 01/29/01 [facility] stage (Dr. Abdalla) PARTIAL AMPUTATION OF TOE Left 07/31/2022 AMPUTATION TOE INTERPHALANGEAL JOINT performed by Yonis Henriquez DO at OR [facility] PARTIAL MASTECTOMY 07/04/95 left breast segmental mastectomy PROSTHETIC MAT/MESH, ABD, NECROTIC, REMOVAL 12/17/2010 REMOVAL MESH ABDOMINAL WALL NECROTIZING SOFT TISSUE INFECTION performed by ELENO BLEDSOE at OR [facility] [place] RADIATION TREATMENT DELIVERY 08/10to09/18/95 left breast 5,040 cGy REMOVAL OF OVARY(S) age 14 Oopherectomy,Uni, REMOVE TONSILS & ADENOIDS, UNDER 10 age 3 Tonsillectomy/Adenoids,<10 Y/O REPAIR INITIAL INCISIONAL OR VENTRAL HERNIA; REDUCIBLE 12/17/2010 REPAIR INITIAL INCISIONAL /VENTRAL HERNIA REDUCIBLE performed by ELENO BLEDSOE at OR [facility] [place] SUCTION REMOVE FAT TISSUE, TRUNK 01/29/01 right breast THIGH OR KNEE SURGERY NEC 1997, 1998 Knee/Leg Other Procedures Unlisted TOTAL ABD HYSTERECTOMY W/WO REMOVAL OF TUBE(S) 12/17/2010 TOTAL ABDOMINAL HYSTERECTOMY WITH OR WITHOUT TUBES AND OVARIES performed by ELENO BLEDSOE at OR [facility] [place] VERTEBRAL ARTERY CATHETER PLACEMENT N/A 03/30/2024 CATHETER PLACEMENT VERTEBRAL ARTERY, performed by Yannick Monteiro MD, PhD at OR [facility] [place] Social History Tobacco Use Smoking status: Never Smokeless tobacco: Never Vaping Use Vaping status: Never Used Substance Use Topics Alcohol use: Yes Comment: rarely Drug use: No Family History Problem Relation Name Age of Onset Cancer Father prostate ca Diabetes Mother Heart Disorder Mother Stroke Mother Cancer Grandfather (Paternal) Heart Disorder Grandfather (Maternal) Heart Disorder Grandmother (Maternal) Stroke Grandmother (Maternal) Review of patient's allergies indicates: Allergen Reactions Levofloxacin Other (Please comment) and Rash Prolonged QT, interfered with Fleconide Current Facility-Administered Medications Medication Dose Route Frequency Provider Enoxaparin (Lovenox) inj 40 mg 40 mg Subcutaneous Daily(AM) Arian Russell DO hydrALAZINE (Apresoline) inj 10 mg 10 mg Intravenous Q6H PRN Arian Russell DO Lisinopril (Prinivil) tab 10 mg 10 mg Oral Daily(AM) Arian Russell DO Metoprolol Tartrate (Lopressor) tab 50 mg 50 mg Oral BID(AM/PM) Russell, Arian Yeon, DO aspirin chew tab 81 mg 81 mg Oral Daily(AM) Arian Russell, DO flecainide (Tambocor) tab 100 mg 100 mg Oral Q12H Arian Russell, DO insulin aspart (NovoLOG) inj Subcutaneous With Meals and HS Arian Russell, DO dextrose 50% inj 25 mL 25 mL IV Push PRN Arian Russell, dextrose 50% inj 50 mL 50 mL IV Push PRN Arian Russell, DO Ezetimibe (Zetia) tab 10 mg 10 mg Oral Daily(AM) Arian Russell, DO glucagon (Glucagen) inj 1 mg 1 mg Intramuscular PRN Arian Russell, Glucose (Glutose 15) 40 % gel 15 g of glucose 15 g of glucose Oral PRN Arian Russell, Glucose (Glutose 15) 40 % gel 30 g of glucose 30 g of glucose Oral PRN Arian Russell, glucose chew tab 16 g 16 g Oral PRN Arian Russell, Objective PHYSICAL EXAM: BP: 141 mmHg/80 mmHg (04/01/242212) Pulse: 67 (04/01/242212) Resp: 26 (04/01/242212) Temp: 37.11 C (04/01/242212) Temp Summary: Temp Min: 36.7 C (98 F) Max: 37.7 C (99.9 F) SpO2: 91 % (04/01/242212) O2 flow rate: Supplemental O2 Delivery: Room Air, None (04/01/242212) Vital Signs Last 24 Hours: BP Min: 120/58 Max: 188/78 Pulse Av Min: 60 Max: 75 Most Recent Temperature Av.1 C Min: 36.67 C Max: 37.72 C Resp Av.8 Min: 18 Max: 26 General: NAD; resting comfortably Respiratory: nonlabored breathing on room air Skin: warm, dry Psychiatric: not agitated NEURO/MSK: Mental Status & Orientation: awake unable to fully assess 2/2 aphasia Attention: diminished Language: expressive aphasia Cranial Nerves: R facial droop Motor: 0-1/5 strength in the right upper and lower extremity DATA REVIEW: Hemoglobin A1c Results: Lab Results Component Value Date/Time HEMOGLOBIN A1C - [facility] 7.2 (H) 03/30/2024 10:41 AM HEMOGLOBIN A1C - [facility] 7.6 (H) 08/11/2014 04:11 PM HEMOGLOBIN A1C - [facility] 5.5 08/25/2009 03:32 PM HEMOGLOBIN A1C - [facility] 5.6 01/08/2008 09:08 AM Recent Results (from the past 24 hours) GLUCOSE METER, POINT OF CARE Collection Time: 04/01/24 7:19 AM Result Value Ref Range GLUCOSE - POCT 191 (H) 70 - 120 mg/dL BASIC METABOLIC PANEL Collection Time: 04/01/24 7:21 AM Result Value Ref Range BUN 16 6 - 20 mg/dL CREATININE 0.7 0.5 - 1.0 mg/dL EGFR >90 >=60 mL/min SODIUM 137 135 - 146 mmol/L POTASSIUM 4.5 3.5 - 5.1 mmol/L CHLORIDE 106 98 - 107 mmol/L CO2 20 (L) 22 - 32 mmol/L ANION GAP 11 7 - 15 mmol/L GLUCOSE 198 (H) 70 - 120 mg/dL CALCIUM 8.2 (L) 8.4 - 10.2 mg/dL CBC Collection Time: 04/01/24 7:21 AM Result Value Ref Range WBC 8.55 4.00 - 10.80 K/uL RBC 4.02 3.85 - 5.15 M/uL HGB 12.6 12.0 - 15.3 g/dL HCT 37.2 36.0 - 45.2 % MCV 92.5 81.5 - 97.5 fL MCH 31.3 27.0 - 34.0 pg MCHC 33.9 32.0 - 36.0 g/dL RDW 12.7 11.5 - 15.5 % PLT 236 140 - 400 K/uL MPV 11.8 6.6 - 11.1 fL nRBCs 0 <=0 /100 WBCs GLUCOSE METER, POINT OF CARE Collection Time: 04/01/24 11:26 AM Result Value Ref Range GLUCOSE - POCT 193 (H) 70 - 120 mg/dL GLUCOSE METER, POINT OF CARE Collection Time: 04/01/24 4:25 PM Result Value Ref Range GLUCOSE - POCT 205 (H) 70 - 120 mg/dL GLUCOSE METER, POINT OF CARE Collection Time: 04/01/24 9:22 PM Result Value Ref Range GLUCOSE - POCT 146 (H) 70 - 120 mg/dL ASSESSMENT: Active Problems: Acute ischemic left MCA stroke (HCC) (POA: Unknown) Right hemiparesis (HCC) (POA: Unknown) Mixed aphasia (POA: Unknown) Gait abnormality (POA: Unknown) Impaired mobility and ADLs (POA: Unknown) Dysphagia due to recent stroke (POA: Unknown) POA = Present On Admission Verena Field is a(n) 74 year old female PMHx Afib on Xarelto, recurrent PE, CAD, RBBB, HTN, T2DM, breast cancer s/p mastectomy, osteomyelitis of L foot s/p toe amputation in 2022 who presents withmobility and ADL deficits secondary to L MCA stroke . PLAN: Disposition Recommendation: IRF vs SNF, will f/u after PT/OT sees pt tomorrow. Physiatry-Focused Considerations(s): Rehabilitation Diagnosis: Stroke Pertinent Medical Post-Acute Care Information: L MCA s/p thrombectomy with TICI 3 Ambulatory Dysfunction: not tested Speech/Cognition/Swallow: regular/thin Skin: prevent pressure injury Bowel: Miralax/Colace prn Bladder: barry cath. Pain: Tylenol prn Sleep: Melatonin prn PM&R will follow peripherally. Please reach out if patient's functional or medical status changes. Thank you for consulting Physical Medicine and Rehabilitation (PM&R / Physiatry). We appreciatethe opportunity to assist in the care of your patient. I spent a total of 55 minutes coordinating, documenting, and providing care for this patient excluding time spent in the performance of separately billed services or time spent by another provider/QHP. Please contact service via Promodityt Role for further questions or concerns: PMRRESIDENTCONSULTS * Rober Dietz MD - 04/01/2024 8:00 AM EST NEUROLOGICAL SURGERY PROGRESS NOTE [address] [address] Name: Verena Field Location: [facility] [place] A461/A Date: 04/01/2024 Time: 8:00 AM SUBJECTIVE: NAEO. MRI completed OBJECTIVE: Most recent vital signs: BP: 161 mmHg/82 mmHg (04/01/24619) Pulse: 66 (04/01/24619) Resp: 20 (04/01/24619) Temp: 36.67 C (04/01/24619) Temp Summary: Temp Min: 36.7 C (98 F) Max: 38.4 C (101.2 F) SpO2: 97 % (04/01/24619) O2 flow rate: Supplemental O2 Delivery: Room Air, None (04/01/24719) Vital signs over last 24 hours: Systolic BP: Most Recent Systolic BP Av.5 mmHg Min: 120 mmHg Max: 194 mmHg Temperature: Most Recent Temperature Av.4 C Min: 36.67 C Max: 38.44 C Pulse: Pulse Avg: Pulse Av.6 Min: 61 Max: 82 Respirations: Resp Av.1 Min: 17 Max: 32 SpO2: SpO2 Av.5 % Min: 95 % Max: 100 % SpO2: SpO2 Av.5 % Min: 95 % Max: 100 % FiO2%: No data recorded ICP: No data found.CPP (adult): No data found.Intake Input/Output: (last 24 hours) Intake/Output Summary (Last 24 hours) at 04/01/2024 0800 Last data filed at 04/01/2024 0300 Gross per 24 hour Intake 692 ml Output 90 ml Net 602 ml Wound Care: clean, dry, intact Neurologic Examination GCS 3/2/6 PERRL Aphasic L gaze preference can overcome midline RUE/RLE trace withdrawal LUE/LLE follows Sensation grossly intact x4 LABS: Blood count: Lab Results Component Value Date/Time WBC 8.55 04/01/2024 07:21 AM WBC 12.66 (H) 08/11/2014 04:11 PM HGB 12.6 04/01/2024 07:21 AM HGB 14.5 10/01/2022 12:00 AM HGB 16.1 (H) 08/11/2014 04:11 PM HCT 37.2 04/01/2024 07:21 AM HCT 47.5 (H) 08/11/2014 04:11 PM PLT 236 04/01/2024 07:21 AM PLT 398 08/11/2014 04:11 PM Coagulation studies: Lab Results Component Value Date/Time INR 1.1 03/31/2024 10:25 PM INR 0.94 08/11/2014 04:11 PM Chemistry: Lab Results Component Value Date/Time BUN 16 04/01/2024 07:21 AM BUN 24 (H) 08/11/2014 04:11 PM CREAT 0.7 04/01/2024 07:21 AM CREAT 0.83 10/01/2022 12:00 AM CREAT 0.8 08/11/2014 04:11 PM GFRESTIMATED >60.0 08/11/2014 04:11 PM NA 137 04/01/2024 07:21 AM NA 141 08/11/2014 04:11 PM POTASSIUM 4.5 04/01/2024 07:21 AM POTASSIUM 4.2 10/01/2022 12:00 AM POTASSIUM 4.5 08/11/2014 04:11 PM CO2 20 (L) 04/01/2024 07:21 AM CO2 26 08/11/2014 04:11 PM Imaging studies: MRI brain completed showing L MCA territory infarct Problem list: Active Problems: Acute ischemic left MCA stroke (HCC) Right hemiparesis (HCC) Mixed aphasia Resolved Problems: * No resolved hospital problems. * CLINICAL HISTORY AND PLAN: 74 year old female w/ PMH significant for a-fib (on xarelto), obesity, HTN, HLD, and DM2 who presents to the neurosurgery service for DSA and possible mechanical thrombectomy for L M1 occlusion on CTH/CTA. LKW 12 10pm. Found by family to have L gaze, R weakness, and aphasia. OSH NIH 24. No TNK as patient is on xarelto. CTH/CTA with above findings. No s/p L M1 MT TICI3 (03/30/2024, Dr. Monteiro). Stroke care per neurology Will order 3 month follow up with neurosurgery stroke clinic Neurosurgery will sign off, please reach out with questions Discussed with Dr. Cayetano Dietz MD Neurosurgery, PGY3 Cosigned by Yannick Monteiro MD, PhD at 04/01/2024 11:02 AM EST Associated attestation - Yannick Monteiro MD, PhD - 04/01/2024 11:02 AM EST I saw and evaluated the patient today. I have reviewed the resident/fellow physician note and agree. * Arian Russell, - 04/01/2024 7:02 AM EST STROKE PROGRESS NOTE - Stroke / Vascular Neurology [facility] [place]-[address] [address] Name: Verena Field Location: [facility] [place] A461/A Date: 04/01/2024 Time: 12:58 PM SUBJECTIVE: Verena Field is a 74 year old patient initially seen for L M1 occlusion and s/p mechanical thrombectomy with TICI3. Changes since last visit: Overnight, she continued to have aspiration events and had trouble taking pills so was made NPO. Her MRI came back showing her L MCA infarct and some hemorrhagic conversion. Today she denies any abdominal pain and does feel like she has some trouble swallowing. Per the , she already clears her throat a lot at home and can get red like she was this morning. Howeverdenies any pain or other new symptoms at this time. 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 Watt Osteomyelitis of left foot (HCC) 07/30/2022 Pulmonary embolus (HCC) 07/02/2005 Recurrent pulmonary embolism (HCC) Pertinent past social history: Social History Tobacco Use Smoking status: Never Smokeless tobacco: Never Vaping Use Vaping status: Never Used Substance Use Topics Alcohol use: Yes Comment: rarely Drug use: No Current Medications: Note that completed medications (per the MAR) continue to display for 24 hours. Ordered medicationsto be given in the future also display. Current Facility-Administered Medications Medication Dose Route Frequency Provider Enoxaparin (Lovenox) inj 40 mg 40 mg Subcutaneous Daily(AM) Arian Russell, hydrALAZINE (Apresoline) inj 10 mg 10 mg Intravenous Q6H PRN Arian Russell, DO aspirin chew tab 81 mg 81 mg Oral Daily(AM) Arian Russell, DO flecainide (Tambocor) tab 100 mg 100 mg Oral Q12H Arian Russell, DO insulin aspart (NovoLOG) inj Subcutaneous With Meals and HS Arian Russell, DO Metoprolol Tartrate (Lopressor) inj 5 mg 5 mg IV Push Q12H Juliette Son MD dextrose 50% inj 25 mL 25 mL IV Push PRN Arian Russell, dextrose 50% inj 50 mL 50 mL IV Push PRN Arian Russell, DO Ezetimibe (Zetia) tab 10 mg 10 mg Oral Daily(AM) Arian Russell, DO glucagon (Glucagen) inj 1 mg 1 mg Intramuscular PRN Arian Russell, Glucose (Glutose 15) 40 % gel 15 g of glucose 15 g of glucose Oral PRN Arian Russell, DO Glucose (Glutose 15) 40 % gel 30 g of glucose 30 g of glucose Oral PRN Arian Russell, DO glucose chew tab 16 g 16 g Oral PRN Arian Russell, DO OBJECTIVE: Physical Examination: Most Recent Vital Signs: BP: 165 mmHg/73 mmHg (04/01/24 1022) Pulse: 60 (04/01/24 1022) Resp: 20 (04/01/24 1022) Temp: 37.39 C (04/01/24 1022) Temp Summary: Temp Min: 36.7 C (98 F) Max: 38.4 C (101.2 F) SpO2: 97 % (04/01/24 1022) O2 flow rate: Supplemental O2 Delivery: Room Air, None (04/01/24 1022) Weight: 109.8 kg (242 lb 1.6 oz) (04/01/24 7719) Height: 167.6 cm (5' 6") (03/30/24 1900) Body mass index is 39.08 kg/m. Vital Signs Last 24 Hours: Systolic BP: Most Recent Systolic BP Av.5 mmHg Min: 120 mmHg Max: 194 mmHg Temperature: Most Recent Temperature Av.5 C Min: 36.67 C Max: 38.44 C Pulse: Pulse Av.7 Min: 60 Max: 78 Respirations: Resp Av Min: 20 Max: 32 SpO2: SpO2 Av.4 % Min: 95 % Max: 97 % General Examination: Constitutional: Appearance no deformities, well groomed, and in bed, somewhat frequent coughing or throat clearing while in room Head/face, ears, nose, throat: normocephalic, atraumatic Cardiovascular: normal heart sounds, regular rate, regular rhythm, normal pulses, and no carotid bruit Psychiatric: pleasant and in no acute distress Neurologic Examination: Ophthalmoscopic: deferred Mental Status and Orientation: alert, awake, and following commands Memory: KAITLIN given aphasia Attention: normal Knowledge: KAITLIN given aphasia Language: expressive aphasia and following commands Speech: aphasic Cranial Nerves: CN 2 - no visual defect on confrontation and pupils round, equal, reactive to light CN 3, 4, 6 - extra-ocular movements intact and no nystagmus CN 5 - symmetrical sensation to V1-3 CN 7 - some facial asymmetry CN 8 - intact hearing CN 9, 10 - did not assess CN 11 - asymmetric shoulder shrug CN 12 - KAITLIN Sensory: intact to light touch throughout Coordination: shaky but normal finger to nose on left upper extremity Gait: deferred due to fall risk Muscle Tone: right side flaccid Muscle exam: See below Reflexes: deferred SEVERITY SCORES: [employer] Stroke Scale: 1A. LOC: 0 1B. Question: 2 1C. Commands: 0 2. Gaze: 0 3. Visual [place]: 0 4. Facial Palsy: 1 5A. Arm Left: 0 5B. Arm Right: 4 6A. Leg Left: 0 6B. Leg Right: 4 7. Ataxia: untestable 8. Sensory: 0 9. Aphasia: 3 10. Dysarthria: 2 11. Extinction: 0 Total: 16 Personal Review and Interpretation of New Neuroimaging: CTA with complete left M1 occlusion and otherwise no significant atherosclerotic disease I have reviewed the following Diagnostic Tests and noted significant findings as follows: TTE w/o bubble study: Interpretation Summary The examination is limited quality but adequate for evaluation of the referral indication. The qualitative LV ejection fraction is 60-64% (normal). The LV wall thickness is mildly increased (concentric). No LV segmental wall motion abnormalities. The right ventricular cavity is mildly dilated. The right ventricular systolic function is qualitatively normal. Mild aortic valve stenosis is present. There is no source of cardiac embolus within the limitations of a limited quality transthoracic echo. LABS: Labs reviewed as indicated below: LDL 115 A1c 7.2 IMPRESSION: 74F with history of afib on xarelto, HTN, HLD, DMT2 who presents with L M1 occlusion and is s/p thrombectomy with TICI3. NIHSS today is largely unchanged at 16 and she currently has right sided hemiparesis, dense expressive aphasia, and some facial asymmetry. However, patient is more awake and better at following commands. MRI shows expected L MCA infarct but with some hemorrhagic conversion (PH2) in MCA and CORINA territory and repeat CTH shows stable infarct. Etiology of stroke likely cardioembolic given lack of significant atherosclerotic disease and patient has history of atrial fibrillation. Per family, she is compliant with her xarelto and did not miss doses. She was hypertensive during this stay so lisinopril was started. She has tried atorvastatin in the past but seems to have gottenmyopathies so is on zetia. LDL is not at goal and cannot go higher on zetia so should consider PCSK9 inhibitor agent. She briefly had fever during some aspiration events so there was concern for aspiration pneumonia and Unasyn was started. However, fever improved spontaneously and she had no increased white count. CXRs were largely unremarkable so Unasyn was stopped. Per the , she tends to clear her throat and cough a lot at home already so this is not too unusual for her. RECOMMENDATIONS / PLAN: Left M1 Occlusion s/p thrombectomy Monitoring -Neurochecks q4h checks -SBP goal < 180 -stat head CT with changes in mental status or new neuro symptoms Treatment -Diet changed to soft and bite sized -Stopped Unasyn given low concern for aspiration pneumonia. Will consider interval CXR if worseningrespiratory function or fevesr. -Start lisinopril 10 mg daily -Continue CREDIT CARD ANALYST Zetia. Can consider PCSK9 inhibitor outpatient -Hold Xarelto for 2 weeks from stroke date. Continue ASA 81 mg daily in the interim. As she was compliant, can consider switching to eliquis -Patient will need referral to lipid clinic when disharged -Hydralazine PRN for SBP over 180 -HOB flat or below 30 if able. -PT/OT/ST/rehab consults -Stroke Education The patient was examined and was discussed with Dr. Cordero. Cosigned by Solitario Cordero MD at 04/01/2024 4:14 PM EST Associated attestation - Solitario Cordero MD - 04/01/2024 4:14 PM EST I saw and evaluated the patient today. I have reviewed the resident/fellow physician note and agree. * Arian Russell DO - 03/31/2024 3:15 PM EST [facility] [place] A545/A HANDOFF COMMUNICATION: Sending patient service: [facility] Accepting service: Neurology - Stroke Sending attending aware of patient and transfer: yes Receiving attending aware of patient and transfer: yes Name of receiving attending provider: Solitario Cordero Patient care is being assumed by receiving service: when patient arrives in receiving unit Reason for transfer: ICU step down SUBJECTIVE: 74F with history of afib on xarelto, HTN, HLD, DMT2 who presents with L M1 occlusion and is s/p thrombectomy with TICI3. NIHSS today is largely unchanged at 18 and she currently has right sided hemiparesis, dense expressive aphasia, and some facial asymmetry. However, patient is more awake and better at following commands. Etiology of stroke likely cardioembolic given lack of significant atherosclerotic disease and patient has history of atrial fibrillation. CURRENT HOSPITAL MEDICATIONS: Note that completed medications (per the MAR) continue to display for 24 hours. Ordered medicationsto be given in the future also display. Current Facility-Administered Medications Medication Dose Route Frequency Provider [START ON 04/01/2024] aspirin chew tab 81 mg 81 mg Oral Daily(AM) Susanne Porter MD flecainide (Tambocor) tab 100 mg 100 mg Oral Q12H Janes Valentine DO insulin aspart (NovoLOG) inj Subcutaneous With Meals and HS Susanne Porter MD insulin aspart (NovoLOG) inj Subcutaneous With meals Susanne Porter MD Metoprolol Tartrate (Lopressor) tab 50 mg 50 mg Oral BID(AM/PM) Janes Valentine DO rosuvastatin (Crestor) tab 5 mg 5 mg Oral Daily(AM) Janes Valentine DO Acetaminophen (Tylenol) supp 650 mg 650 mg Rectal Q4H PRN Susanne Porter MD chlorHEXIDINE (Periogard) 0.12 % oral rinse 15 mL 15 mL Oral mucosal membrane BID (08,1999) Susanne Porter MD dextrose 50% inj 25 mL 25 mL IV Push PRN Georgette Dick MD dextrose 50% inj 50 mL 50 mL IV Push PRN Georgette Dick MD Ezetimibe (Zetia) tab 10 mg 10 mg Oral Daily(AM) Susanne Porter MD glucagon (Glucagen) inj 1 mg 1 mg Intramuscular PRN Georgette Dick MD Glucose (Glutose 15) 40 % gel 15 g of glucose 15 g of glucose Oral PRN Georgette Dick MD Glucose (Glutose 15) 40 % gel 30 g of glucose 30 g of glucose Oral PRN Georgette Dick MD glucose chew tab 16 g 16 g Oral PRN Georgette Dick MD Oral Hygiene: Mouth Swab with dentifrice Oral Q4H Limited (00;04;12;16) Susanne Porter MD TRANSFER MEDICATION RECONCILIATION COMPLETED? yes REVIEW OF SYSTEMS: As per HPI and all other systems reviewed and negative. OBJECTIVE: Most Recent Vital Signs: BP: 154 mmHg/67 mmHg (03/31/24 1500) Pulse: 69 (03/31/24 1500) Resp: 20 (03/31/24 1500) Temp: 37.61 C (03/31/24 1400) Temp Summary: Temp Min: 36.5 C (97.7 F) Max: 37.6 C (99.7 F) SpO2: 96 % (03/31/24 1500) O2 flow rate: Supplemental O2 Delivery: Room Air, None (03/31/24 1400) Vital Signs Last 24 Hours: Systolic BP: Most Recent Systolic BP Av mmHg Min: 142 mmHg Max: 174 mmHg Temperature: Most Recent Temperature Av.9 C Min: 36.5 C Max: 37.61 C Pulse: Pulse Av Min: 63 Max: 82 Respirations: Resp Av.6 Min: 17 Max: 32 SpO2: SpO2 Av.2 % Min: 94 % Max: 100 % Intake/Output Summary (Last 24 hours) at 03/31/2024 1516 Last data filed at 03/31/2024 1400 Gross per 24 hour Intake 480 ml Output 650 ml Net -170 ml General Examination: Constitutional: Appearance no deformities, well groomed, and in bed Head/face, ears, nose, throat: normocephalic, atraumatic Cardiovascular: normal heart sounds, regular rate, regular rhythm, normal pulses, and no carotid bruit Psychiatric: pleasant and in no acute distress Neurologic Examination: Ophthalmoscopic: deferred Mental Status and Orientation: alert, awake, and following commands Memory: KAITLIN given aphasia Attention: normal Knowledge: KAITLIN given aphasia Language: expressive aphasia and following commands Speech: aphasic Cranial Nerves: CN 2 - no visual defect on confrontation and pupils round, equal, reactive to light CN 3, 4, 6 - extra-ocular movements intact and no nystagmus CN 5 - symmetrical sensation to V1-3 CN 7 - some facial asymmetry CN 8 - intact hearing CN 9, 10 - did not assess CN 11 - asymmetric shoulder shrug CN 12 - KAITLIN Sensory: intact to light touch throughout Coordination: shaky but normal finger to nose on left upper extremity Gait: deferred due to fall risk Muscle Tone: right side flaccid Muscle exam: See below Reflexes: deferred SEVERITY SCORES: [employer] Stroke Scale: 1A. LOC: 0 1B. Question: 2 1C. Commands: 0 2. Gaze: 0 3. Visual [place]: 0 4. Facial Palsy: 1 5A. Arm Left: 0 5B. Arm Right: 4 6A. Leg Left: 2 6B. Leg Right: 3 7. Ataxia: untestable 8. Sensory: 1 9. Aphasia: 3 10. Dysarthria: 2 11. Extinction: 0 Total: 18 LABS: Labs reviewed IMPRESSION and PLAN: Active Problems: Acute ischemic left MCA stroke (HCC) (POA: Unknown) Right hemiparesis (HCC) (POA: Unknown) Mixed aphasia (POA: Unknown) Diagnostics -Continue telemetry -MRI brain without contrast when able Monitoring -Neurochecks q4h checks s/p thrombectomy -SBP goal < 180 -stat head CT with changes in mental status or new neuro symptoms Treatment -Continue CREDIT CARD ANALYST Zetia. Can consider PCSK9 inhibitor outpatient -Hold Xarelto for 2 weeks from stroke date. Continue ASA 81 mg daily in the interim. Will discuss different agents if compliance is an issue once able -Patient will need referral to lipid clinic when disharged -HOB flat or below 30 if able. -PT/OT/ST/rehab consults -Stroke Education * Susanne Porter MD - 03/31/2024 2:48 PM EST BRIEF TRANSFER OUT OF INTENSIVE CARE NOTE - CRITICAL CARE MEDICINE [facility] [place]-[address] [id number] Name: Verena Field Current Location: [address] Primary ICU Problem: Acute ischemic stroke Proximal LEFT M1 MCA occlusion s/p mechanical thrombectomy + 6 vessel angiogram TICI score 3 ICU Course/Complications: Verena Field is a 74 year old female w/ PMHX Paroxysmal Afib (Xarelto, Flecanide 100 BID and Lopressor 50 BID) Non obstructive CAD RBBB Recurrent PE (last 2016 on Xarelto) Obesity HTN (Triamterne HXTZ 75-50) HLD (crestor 5, Zetia - statin intolerance) T2DM (Metformin, last A1c 7.2) H/o skin cancer: melanoma in situ, right upper back 2022 Hx BCC L midback 04/2017, BCC L clavicle 2008 Hx [place] Hx breast (s/p double mastectomy) and uterine CA (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 LKW was 03/28 at 2200. Found to have. L gaze, R weakness, and aphasia. OSH NIH 24. No TNK as patient is on xarelto. CTH/CTA with M1 occlusion. Taken to angio directly by neurosurgery. Patient returned from thrombectomy with aphasia. Neurology was consulted and recommended follow up CTH and initiation of ASA + Zetia. Seen by speech on 03/31 and cleared for diet. Delirium: No Mechanical Ventilation: Intubated: No Difficult airway: No Major Procedures: 03/30: mechanical thrombectomy Medications: Medication changes: Holding CREDIT CARD ANALYST HCTZ and xarelto Antibiotics: No Pending ICU Issues: Active issues currently being followed or monitored at time of transfer out of ICU: NEUROLOGICAL: Acute ischemic stroke Proximal LEFT M1 MCA occlusion s/p mechanical thrombectomy + 6 vessel angiogram TICI score 3 CTH ordered "Evolving large early subacute infarction involving the left CORINA and MCA territories without significantly increased mass effect or evidence of hemorrhagic transformation. No other areas suspicious for acute infarction identified. Chronic microvascular white matter disease and parenchymal volume loss. Additional findings as above. " MRI ordered Patient started on ASA 81mg and zetia 10mg and crestor 5mg Neurosurgery consulted, appreciate recs q1h neuro checks, vitals SBP goal 100-180 Keep bed flat for 6 hours NPO while flat Maintenance fluids as needed MRI brain wo contrast for prognostication stroke care per neurology Antiplatelet/anticoagulation per neurology PULMONARY / RESPIRATORY: No acute issues SpO2 >92% CARDIOVASCULAR: Hx of Paroxysmal Afib Hx Non obstructive CAD Hx RBBB Hx Recurrent PE (last 2016 on Xarelto) Hx of HTN Hx of HLD Vasopressors: None Goal: Normotension MAP goal > 65. sbp 100-180 Antiplatelets per Neurology ASA Hold CREDIT CARD ANALYST Xarelto, Start Flecanide 100 BID and Lopressor 50 BID Hold CREDIT CARD ANALYST HCTZ GASTROINTESTINAL / HEPATOBILIARY: No acute issues Bowel reg: held for NPO status Stress ulcer ppx: not indicated Diet: CC diet thin diet Full assist and close supervision - watch for pocketing RENAL / METABOLIC / FLUIDS: No acute issues Baseline Cr 0.5-0.7. Daily BMP INFECTIOUS DISEASES: No acute concerns ENDOCRINE: T2DM SSI +CC Blood Glucose Monitoring (BGM) Goal: 140-180. 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 / MOBILITY: Ischemic stroke Speech Rehab PT/OT DERMATOLOGIC / WOUND CARE: No concerns Consults following or that need to be accomplished: Neurosurgery PT OT Rehab Central Lines/Chest Tubes/PICC/IUBC: Remaining in place: No Family Meeting/Goals of Care: Full Code Family meeting summary/decision makers: Follow Up: Outpatient follow up clinics/labs/studies: Follow up with lipid clinic - may need PCSK9i PT/OT/Speech Incidental findings that need to be addressed: None * Rober Dietz MD - 03/31/2024 8:49 AM EST NEUROLOGICAL SURGERY PROGRESS NOTE [facility] [place] [address] Name: Verena Field Location: [place] [id number] Date: 03/31/2024 Time: 8:49 AM SUBJECTIVE: NAEO. MRI brain pending OBJECTIVE: Most recent vital signs: BP: 157 mmHg/64 mmHg (03/31/24699) Pulse: 68 (03/31/24699) Resp: 21 (03/31/24699) Temp: 36.61 C (03/31/24599) Temp Summary: Temp Min: 36.2 C (97.2 F) Max: 37.2 C (99 F) SpO2: 96 % (03/31/24699) O2 flow rate: Supplemental O2 Delivery: Room Air, None (12/11/24 0700) Vital signs over last 24 hours: Systolic BP: Most Recent Systolic BP Av.7 mmHg Min: 141 mmHg Max: 176 mmHg Temperature: Most Recent Temperature Av.6 C Min: 36.22 C Max: 37.22 C Pulse: Pulse Avg: Pulse Av.6 Min: 63 Max: 77 Respirations: Resp Av.5 Min: 18 Max: 27 SpO2: SpO2 Av.9 % Min: 94 % Max: 98 % SpO2: SpO2 Av.9 % Min: 94 % Max: 98 % FiO2%: No data recorded ICP: No data found.CPP (adult): No data found.Intake Input/Output: (last 24 hours) Intake/Output Summary (Last 24 hours) at 03/31/2024 0849 Last data filed at 03/31/2024 0600 Gross per 24 hour Intake 600 ml Output 1125 ml Net -525 ml Wound Care: clean, dry, intact Neurologic Examination GCS 3/2/6 PERRL L gaze preference can overcome midline RUE/RLE trace withdrawal LUE/LLE follows Sensation grossly intact x4 LABS: Blood count: Lab Results Component Value Date/Time WBC 8.81 03/31/2024 04:24 AM WBC 12.66 (H) 08/11/2014 04:11 PM HGB 12.3 03/31/2024 04:24 AM HGB 14.5 10/01/2022 12:00 AM HGB 16.1 (H) 08/11/2014 04:11 PM HCT 37.4 03/31/2024 04:24 AM HCT 47.5 (H) 08/11/2014 04:11 PM PLT 258 03/31/2024 04:24 AM PLT 398 08/11/2014 04:11 PM Coagulation studies: Lab Results Component Value Date/Time INR 1.0 03/30/2024 10:41 AM INR 0.94 08/11/2014 04:11 PM Chemistry: Lab Results Component Value Date/Time BUN 11 03/31/2024 04:24 AM BUN 24 (H) 08/11/2014 04:11 PM CREAT 0.6 03/31/2024 04:24 AM CREAT 0.83 10/01/2022 12:00 AM CREAT 0.8 08/11/2014 04:11 PM GFRESTIMATED >60.0 08/11/2014 04:11 PM NA 142 03/31/2024 04:24 AM NA 141 08/11/2014 04:11 PM POTASSIUM 3.7 03/31/2024 04:24 AM POTASSIUM 4.2 10/01/2022 12:00 AM POTASSIUM 4.5 08/11/2014 04:11 PM CO2 23 03/31/2024 04:24 AM CO2 26 08/11/2014 04:11 PM Imaging studies: MRI brain pending Problem list: Active Problems: Acute ischemic left MCA stroke (HCC) Right hemiparesis (HCC) Mixed aphasia Resolved Problems: * No resolved hospital problems. * CLINICAL HISTORY AND PLAN: 74 year old female w/ PMH significant for a-fib (on xarelto), obesity, HTN, HLD, and DM2 who presents to the neurosurgery service for DSA and possible mechanical thrombectomy for L M1 occlusion on CTH/CTA. LKW 12 10pm. Found by family to have L gaze, R weakness, and aphasia. OSH NIH 24. No TNK as patient is on xarelto. CTH/CTA with above findings. No s/p L M1 MT TICI3 (03/30/2024, Dr. Monteiro). q1h neuro checks, vitals SBP goal 100-180 MRI brain wo contrast for prognostication stroke care per neurology Antiplatelet/anticoagulation per neurology post angiogram orders as written neurovascular checks as ordered if hemorrhage is noted, please apply direct pressure for 15 minutes; call Neurosurgery service if it persists or hematoma is observed PT/OT/Speech Therapy OOB as tolerated Discussed with Dr. Cayetano Dietz MD Neurosurgery, PGY3 Cosigned by Yannick Monteiro MD, PhD at 03/31/2024 3:50 PM EST Associated attestation - Yannick Monteiro MD, PhD - 03/31/2024 3:50 PM EST I saw and evaluated the patient today. I have reviewed the resident/fellow physician note and agree. * Susanne Porter MD - 03/31/2024 7:41 AM EST CCM - PROGRESS NOTE [facility] [place]-[address] [address] Name: Verena Field Location: [facility] [place] A545/[id number] Date: 03/31/2024 Date of admission: 03/30/2024 Hospital length of stay: 1 days PATIENT DESCRIPTION: Verena Field is a 74 year old female w/ PMHX Paroxysmal Afib (Xarelto, Flecanide 100 BID and Lopressor 50 BID) Non obstructive CAD RBBB Recurrent PE (last 2016 on Xarelto) Obesity HTN (Triamterne HXTZ 75-50) HLD (crestor 5, Zetia - statin intolerance) T2DM (Metformin, last A1c 7.2) H/o skin cancer: melanoma in situ, right upper back 2022 Hx BCC L midback 04/2017, BCC L clavicle 2008 Hx [place] Hx breast (s/p double mastectomy) and uterine CA (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 LKW was 03/28 at 2200. Found to have. L gaze, R weakness, and aphasia. OSH NIH 24. No TNK as patient is on xarelto. CTH/CTA with M1 occlusion. Taken to angio directly by neurosurgery. Patient returned from thrombectomy with aphasia. Neurology was consulted and recommended follow up CTH and initiation of ASA + Zetia. Subjective EVENTS OF NOTE: 03/30: Admitted, mechanical thrombectomy. INTERIM HISTORY / SUBJECTIVE: Overnight: No events. Remained normotensive. This morning, patient evaluated at bedside. Patient with aphasia Objective CONSTITUTIONAL DATA / OBJECTIVE: Vital Signs (Most Recent): Pulse: 68 (03/31/24 0700) BP: 157/64 (03/31/24699) Resp: 21 (03/31/24699) Temp: 36.6 C (97.9 F) (03/31/24 06) SpO2: 96 % (03/31/24699) Vital Signs (Last 24 Hours): Pulse Av.6 Min: 63 Max: 77 No data recorded Most Recent Systolic BP Av.7 mmHg Min: 141 mmHg Max: 176 mmHg Most Recent Diastolic BP Av.8 mmHg Min: 54 mmHg Max: 71 mmHg Resp Av.5 Min: 18 Max: 27 Most Recent Temperature Av.6 C Min: 36.22 C Max: 37.22 C SpO2 Av.9 % Min: 94 % Max: 98 % Ventilatory Support: HFNC: CPAP/EPAP: IPAP: Ventilator Settings: Intake & Output Summary (Last 24 hours): Intake/Output Summary (Last 24 hours) at 03/31/2024741 Last data filed at 03/31/2024599 Gross per 24 hour Intake 1000 ml Output 1125 ml Net -125 ml Net IO Since Admission: -125 mL [03/31/24741] Height & Weight: Height: 167.6 cm (5' 6") (03/30/24 1900) Weight: 109.5 kg (241 lb 6.5 oz) (03/31/24599) Weight change: Body mass index is 38.96 kg/m. Physical Examination: General: Patient in no apparent distress. HEENT: normocephalic, atraumatic. HOB at 30 Heart: regular rate and rhythm; S1 and S2 present; no murmurs auscultated Pulmonary: Lungs clear to auscultation bilaterally; no wheezes, rhonchi or crackles. Abdomen: Soft, non-tender, non-distended. Normal bowel sounds and no rebound or guarding. MSK: BL LE edema. Left leg wiggles toes. Toe amputation on left leg. Right leg- not moving. Right arm not moving. Skin: [place], warm, no wounds or lesions present. Neuro: NIH Stroke Scale: 1a. Level of Consciousness: alert = 0 1b. LOC Questions: (month, age): aphasic or stuporous patient who does not comprehend the questions= 2 1c. LOC Commands (open and close eyes, make fist and let go using non-paretic hand): obeys one correctly = 1 2. Best Gaze (eyes open and patient follows examiner's finger or face): normal = 0 3. Visual (visual threat or finger counting in each quadrant): no loss = 0 4. Facial Palsy (show teeth, raise eye brows and squeeze eyes shut, or grimace symmetry in a comatose patient): partial paralysis (lower face paralysis) = 2 5a. Motor Arm (extend arm (palms down) to 90 degrees and score drift/movement (10 seconds) - Left: no drift = 0 5b. Motor Arm: (extend arm (palms down) to 90 degrees and score drift/movement (10 seconds) - Right: no movement at all = 4 6a. Motor Leg (elevate leg 30 degrees and score drift/ movement (5 seconds) - Left: no drift = 0 6b. Motor Leg (elevate leg 30 degrees and score drift/ movement (5 seconds) - Right: no movement atall = 4 7. Limb Ataxia (finger to nose, heel down recinos): unable to understand instructions or paralyzed extremity = 0 8. Sensory (pin prick to face, arm, trunk and leg, compare side to side): dense loss (complete lossof sensation) = 2 9. Best Language: severe aphasia = 2 10. Dysarthria (evaluate speech clarity by patient repeating listed words): mute/anarthic = 2 11. Extinction and Inattention: profound neglect (extinction to more than one modality, or profoundhemi-inattention) = 2 Total: 21 Urethral Catheter Latex;Regular catheter (Active) Number of days: 1 Peripheral Line Left;Lower;Posterior Arm 18 Gauge (Active) Number of days: Peripheral Line Lower;Right Arm 20 Gauge (Active) Number of days: 1 Peripheral Line Left;Lower Arm 20 Gauge (Active) Number of days: 1 Laboratory Values: reviewed. -- Brief labs below include the 7 most recent results over the past week. Blood Gas: No results in the last 7 days - inpatent use only Chemistry Panel: Lab results within last 7 days (see chart for full results) Units 03/31/24 0424 03/30/24 1007 SODIUM mmol/L 142 139 POTASSIUM mmol/L 3.7 3.9 CHLORIDE mmol/L 106 104 CO2 mmol/L 23 17* EGFR mL/min >90 >90 BUN mg/dL 11 16 CREATININE mg/dL 0.6 0.5 GLUCOSE mg/dL 187* 246* CALCIUM mg/dL 7.9* 7.7* Magnesium mg/dL -- 2.0 Phosphorus mg/dL -- 2.8 ANION GAP mmol/L 13 18* Complete Blood Count: Lab results within last 7 days (see chart for full results) Units 03/31/24 0424 03/30/24 1007 WBC K/uL 8.81 10.26 HGB g/dL 12.3 13.1 HCT % 37.4 39.5 PLT K/uL 258 267 MCV fL 95.7 95.2 Cardiac Studies: No results in the last 7 days - inpatent use only Coagulation Studies: Lab results within last 7 days (see chart for full results) Units 03/30/24 1041 Prothrombin Time seconds 13.3 INR 1.0 aPTT seconds 25 Liver Function Panel: Lab results within last 7 days (see chart for full results) Units 03/31/24 0424 03/30/24 1007 Albumin g/dL -- 3.1* Protein g/dL -- 5.7* Bilirubin, Total mg/dL -- 0.3 AST U/L -- 16 ALT U/L -- 12 Alkaline Phosphatase U/L -- 90 Triglycerides mg/dL 235* -- Infectious Studies: No results in the last 7 days - inpatent use only Cultures: reviewed. Recent Cultures (2 Weeks) No lab values to display. Radiographic Studies: reviewed. No imaging results in the last 72 hours Assessment & Plan Active Problems: Acute ischemic left MCA stroke (HCC) (POA: Unknown) Right hemiparesis (HCC) (POA: Unknown) Mixed aphasia (POA: Unknown) POA = Present On Admission NEUROLOGICAL: Acute ischemic stroke Proximal LEFT M1 MCA occlusion s/p mechanical thrombectomy + 6 vessel angiogram TICI score 3 CTH ordered "Evolving large early subacute infarction involving the left CORINA and MCA territories without significantly increased mass effect or evidence of hemorrhagic transformation. No other areas suspicious for acute infarction identified. Chronic microvascular white matter disease and parenchymal volume loss. Additional findings as above. " MRI ordered Patient started on ASA 81mg and zetia 10mg and crestor 5mg Neurosurgery consulted, appreciate recs q1h neuro checks, vitals SBP goal 100-180 Keep bed flat for 6 hours NPO while flat Maintenance fluids as needed MRI brain wo contrast for prognostication stroke care per neurology Antiplatelet/anticoagulation per neurology Neurology consulted, appreciate recs Start CREDIT CARD ANALYST zetia when able. If LDL still not at goal, can consider PCSK9 inhibitor Hold Xarelto until MRI brain. Can start ASA 81mg daily in meantime. Will discuss patient's candidacy for ASPIRE trial. RASS Goal: 0 RASS Assessment: 0 Alert and Calm (03/31/24 0700) Analgesia/Sedation: none Pain Control: none Current Paralytic: none Spontaneous Awakening Trial (SAT): N/A Delirium/Confusion Assessment: CAM-ICU Positive?: Yes (03/31/24 0400) PULMONARY / RESPIRATORY: No acute issues SpO2 >92% CARDIOVASCULAR: Hx of Paroxysmal Afib Hx Non obstructive CAD Hx RBBB Hx Recurrent PE (last 2016 on Xarelto) Hx of HTN Hx of HLD TTE: bubble study negative Vasopressors: None Goal: Normotension MAP goal > 65. sbp 100-180 Antiplatelets per Neurology ASA Hold CREDIT CARD ANALYST Xarelto, RFlecanide 100 BID and Lopressor 50 BID Hold CREDIT CARD ANALYST HCTZ GASTROINTESTINAL / HEPATOBILIARY: No acute issues Bowel reg: held for NPO status Stress ulcer ppx: not indicated Diet: HH CC diet thin diet Full assist and close supervision - watch for pocketing RENAL / METABOLIC / FLUIDS: No acute issues Baseline Cr 0.5-0.7. Most Recent: Serum creatinine: 0.6 mg/dL 03/31/24 0424 Estimated creatinine clearance: 75 mL/min Monitor electrolytes at least daily. Replete electrolytes as indicated. Avoid Nephrotoxins including NSAIDS and IV contrast. Strict monitoring of fluid intake and output. Renal dosing and medication considerations adjusted for glomerular filtration rate. Daily weights. INFECTIOUS DISEASES: No acute concerns ENDOCRINE: T2DM SSI +CC Blood Glucose Monitoring (BGM) Goal: 140-180. 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 / MOBILITY: Ischemic stroke Speech Rehab PT/OT DERMATOLOGIC / WOUND CARE: No concerns Wound care PRN LINES / DRAINS / TUBES: LINES ALL Duration Peripheral Line Left;Lower;Posterior Arm 18 Gauge -- days Peripheral Line Left;Lower Arm 20 Gauge <1 day Peripheral Line Lower;Right Arm 20 Gauge <1 day Supplemental Airway NRB <1 day Urethral Catheter Latex;Regular catheter <1 day List of services consulted/following: ADULT OCCUPATIONAL THERAPY CONSULT IP ADULT PHYSICAL THERAPY CONSULT IP ADULT SPEECH THERAPY CONSULT IP (ACUTE CARE REHAB) CARE MANAGEMENT CONSULT IP NEUROLOGY CONSULT IP REHAB CONSULT IP GLOBAL ISSUES: Code Status: Full Code Analgesia: no pain Sedation: N/A Delirium/Confusion Assessment Method for ICU (CAM-ICU): CAM-ICU negative HOB Elevation: contraindicated Nutrition: NPO DVT Prophylaxis: pneumatic compression devices alone due to chemoprophylaxis contraindication Stress Ulcer Prophylaxis: not indicated Glycemic Control: controlled - protocol Oral hygiene every four hours Chlorhexidine mouth rinse every twelve hours Central Line Necessity Reviewed: N/A Barry: will remove Disposition: keep in ICU Patient's decisional capacity: does not have capacity to make decisions Communication with Patient/Family: Spoke to family at bedside on 03/30. Family to return later today Goals of Care: improve neurological function Patient was discussed with attending physician, MD Susanne Hartmann MD Resident Physician This chart was completed in part utilizing [employer] Speech Voice Recognition Software. Grammatical errors, random word insertions, pronoun errors, and incomplete sentences are an occasional consequence of this system due to software limitations, ambient noise, and hardware issues. Any formal questions or concerns about the content, text, or information contained within the body of this dictation should be directly addressed to the provider for clarification. Cosigned by Art Ybarra MD at 03/31/2024 2:05 PM EST Associated attestation - Art Ybarra MD - 03/31/2024 2:05 PM EST I saw and evaluated the patient today. I have reviewed the resident/fellow physician note and agree. Overall, no significant change in her neurological exam. Did pass speech evaluation this morning. CT head done this morning shows early subacute infarction involving in left CORINA and MCA territory with no mass effect or hemorrhagic transformation. Would continue to hold anticoagulation for now. MRI is pending. Aspirin, Zetia we will be continued. Low-dose Crestor will be added given her lipid profile. She will need physical therapy and ongoing speech therapy support. Neurology and Neurosurgery follow-up. Stable for floor transfer to Neurology service. Art Ybarra MD This chart was completed in part utilizing [employer] Speech Voice Recognition Software. Grammatical errors, random word insertions, pronoun errors, and incomplete sentences are an occasional consequence of this system due to software limitations, ambient noise, and hardware issues. Any formal questions or concerns about the content, text, or information contained within the body of this dictation should be directly addressed to the provider for clarification. * Arian Russell, - 03/31/2024 7:00 AM EST STROKE PROGRESS NOTE - Stroke / Vascular Neurology [facility] [place]-[address] [address] Name: Verena Field Location: [facility] [place] A545/A Date: 03/31/2024 Time: 1:06 PM SUBJECTIVE: Verena Field is a 74 year old patient initially seen for L M1 occlusion and s/p mechanical thrombectomy with TICI3. Changes since last visit: NAEO. TTE is unremarkable and per nursing, has been more alert and following commands better. She is still largely unable to move her right arm and her right leg is very weak. 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 Watt Osteomyelitis of left foot (HCC) 07/30/2022 Pulmonary embolus (HCC) 07/02/2005 Recurrent pulmonary embolism (HCC) Pertinent past social history: Social History Tobacco Use Smoking status: Never Smokeless tobacco: Never Vaping Use Vaping status: Never Used Substance Use Topics Alcohol use: Yes Comment: rarely Drug use: No Current Medications: Note that completed medications (per the MAR) continue to display for 24 hours. Ordered medicationsto be given in the future also display. Current Facility-Administered Medications Medication Dose Route Frequency Provider [START ON 04/01/2024] aspirin chew tab 81 mg 81 mg Oral Daily(AM) Susanne Porter MD flecainide (Tambocor) tab 100 mg 100 mg Oral Q12H Janes Valentine DO insulin aspart (NovoLOG) inj Subcutaneous With Meals and HS Susanne Porter MD insulin aspart (NovoLOG) inj Subcutaneous With meals Susanne Porter MD Metoprolol Tartrate (Lopressor) tab 50 mg 50 mg Oral BID(AM/PM) Janes Valentine, rosuvastatin (Crestor) tab 5 mg 5 mg Oral Daily(AM) Deja Valentineda, Acetaminophen (Tylenol) supp 650 mg 650 mg Rectal Q4H PRN Susanne Porter MD chlorHEXIDINE (Periogard) 0.12 % oral rinse 15 mL 15 mL Oral mucosal membrane BID (0800,1999) Susanne Porter MD dextrose 50% inj 25 mL 25 mL IV Push PRN Georgette Dick MD dextrose 50% inj 50 mL 50 mL IV Push PRN Georgette Dick MD Ezetimibe (Zetia) tab 10 mg 10 mg Oral Daily(AM) Susanne Porter MD glucagon (Glucagen) inj 1 mg 1 mg Intramuscular PRN Georgette Dick MD Glucose (Glutose 15) 40 % gel 15 g of glucose 15 g of glucose Oral PRN Georgette Dick MD Glucose (Glutose 15) 40 % gel 30 g of glucose 30 g of glucose Oral PRN Georgette Dick MD glucose chew tab 16 g 16 g Oral PRN Georgette Dick MD Oral Hygiene: Mouth Swab with dentifrice Oral Q4H Limited (00;04;12;16) Susanne Porter MD OBJECTIVE: Physical Examination: Most Recent Vital Signs: BP: 154 mmHg/58 mmHg (03/31/24 1100) Pulse: 82 (03/31/24 1100) Resp: 21 (03/31/24 1100) Temp: 37.5 C (03/31/24 1200) Temp Summary: Temp Min: 36.2 C (97.2 F) Max: 37.5 C (99.5 F) SpO2: 100 % (03/31/24 1000) O2 flow rate: Supplemental O2 Delivery: Room Air, None (03/31/24 1200) Weight: 109.5 kg (241 lb 6.5 oz) (03/31/24 0600) Height: 167.6 cm (5' 6") (03/30/24 1900) Body mass index is 38.96 kg/m. Vital Signs Last 24 Hours: Systolic BP: Most Recent Systolic BP Av.3 mmHg Min: 141 mmHg Max: 174 mmHg Temperature: Most Recent Temperature Av.8 C Min: 36.22 C Max: 37.5 C Pulse: Pulse Av.5 Min: 63 Max: 82 Respirations: Resp Av.7 Min: 17 Max: 26 SpO2: SpO2 Av.2 % Min: 94 % Max: 100 % General Examination: Constitutional: Appearance no deformities, well groomed, and in bed Head/face, ears, nose, throat: normocephalic, atraumatic Cardiovascular: normal heart sounds, regular rate, regular rhythm, normal pulses, and no carotid bruit Psychiatric: pleasant and in no acute distress Neurologic Examination: Ophthalmoscopic: deferred Mental Status and Orientation: alert, awake, and following commands Memory: KAITLIN given aphasia Attention: normal Knowledge: KAITLIN given aphasia Language: expressive aphasia and following commands Speech: aphasic Cranial Nerves: CN 2 - no visual defect on confrontation and pupils round, equal, reactive to light CN 3, 4, 6 - extra-ocular movements intact and no nystagmus CN 5 - symmetrical sensation to V1-3 CN 7 - some facial asymmetry CN 8 - intact hearing CN 9, 10 - did not assess CN 11 - asymmetric shoulder shrug CN 12 - KAITLIN Sensory: intact to light touch throughout Coordination: shaky but normal finger to nose on left upper extremity Gait: deferred due to fall risk Muscle Tone: right side flaccid Muscle exam: See below Reflexes: deferred SEVERITY SCORES: [employer] Stroke Scale: 1A. LOC: 0 1B. Question: 2 1C. Commands: 0 2. Gaze: 0 3. Visual [place]: 0 4. Facial Palsy: 1 5A. Arm Left: 0 5B. Arm Right: 4 6A. Leg Left: 2 6B. Leg Right: 3 7. Ataxia: untestable 8. Sensory: 1 9. Aphasia: 3 10. Dysarthria: 2 11. Extinction: 0 Total: 18 Personal Review and Interpretation of New Neuroimaging: CTA with complete left M1 occlusion and otherwise no significant atherosclerotic disease I have reviewed the following Diagnostic Tests and noted significant findings as follows: TTE w/o bubble study: Interpretation Summary The examination is limited quality but adequate for evaluation of the referral indication. The qualitative LV ejection fraction is 60-64% (normal). The LV wall thickness is mildly increased (concentric). No LV segmental wall motion abnormalities. The right ventricular cavity is mildly dilated. The right ventricular systolic function is qualitatively normal. Mild aortic valve stenosis is present. There is no source of cardiac embolus within the limitations of a limited quality transthoracic echo. LABS: Labs reviewed as indicated below: LDL 115 A1c 7.2 IMPRESSION: 74F with history of afib on xarelto, HTN, HLD, DMT2 who presents with L M1 occlusion and is s/p thrombectomy with TICI3. NIHSS today is largely unchanged at 18 and she currently has right sided hemiparesis, dense expressive aphasia, and some facial asymmetry. However, patient is more awake and better at following commands. Etiology of stroke likely cardioembolic given lack of significant atherosclerotic disease and patient has history of atrial fibrillation. She has tried atorvastatin in the past but seems to have gotten myopathies so is on zetia. LDL is not at goal and cannot go higher on zetia so should consider PCSK9 inhibitor agent. RECOMMENDATIONS / PLAN: Left M1 Occlusion s/p thrombectomy Diagnostics -Continue telemetry -MRI brain without contrast when able Monitoring -Neurochecks q1h checks s/p thrombectomy -SBP goal < 180 -stat head CT with changes in mental status or new neuro symptoms Treatment -Continue CREDIT CARD ANALYST Zetia. Can consider PCSK9 inhibitor outpatient -Hold Xarelto for 2 weeks from stroke date. Continue ASA 81 mg daily in the interim. Will discuss patient's candidacy for ASPIRE trial -Patient will need referral to lipid clinic when disharged -HOB flat or below 30 if able. -PT/OT/ST/rehab consults -Stroke Education The patient was examined and was discussed with Dr. Cordero. Cosigned by Solitario Cordero MD at 03/31/2024 4:39 PM EST Associated attestation - Solitario Cordero MD - 03/31/2024 4:39 PM EST I saw and evaluated the patient today. I have reviewed the resident/fellow physician note and agree. Patient seen seated in recliner in no obvious pain or distress. Patient continues to present w/ a predominantly expressive aphasia, with some improvement in receptive language noted. Etiology of stroke is likely related to cardioembolism, and will need to explore medication compliance before conside ring whether switching to alternative DOAC such as Apixaban is warranted. Patient is otherwise safefor transfer out of ICU when cleared by primary team. * Ceasar Chisholm MD - 03/30/2024 10:58 AM EST NEUROLOGICAL SURGERY PROGRESS NOTE [facility] [place]-[address] [address] Name: Verena Field Location: [address] Date: 03/30/2024 Time: 10:58 AM SUBJECTIVE: Transferred to ICU without complication. OBJECTIVE: Most recent vital signs: BP: 170 mmHg/58 mmHg (03/30/24 1000) Pulse: 69 (03/30/24 1000) Resp: 20 (03/30/24 1000) Temp: 36.5 C (03/30/24 1000) Temp Summary: Temp Min: 36.4 C (97.5 F) Max: 36.5 C (97.7 F) SpO2: 95 % (03/30/24 1000) O2 flow rate: Supplemental O2 Delivery: Room Air, None (03/30/24 1000) Vital signs over last 24 hours: Systolic BP: Most Recent Systolic BP Av mmHg Min: 156 mmHg Max: 170 mmHg Temperature: Most Recent Temperature Av.4 C Min: 36.39 C Max: 36.5 C Pulse: Pulse Avg: Pulse Av Min: 69 Max: 71 Respirations: Resp Av Min: 20 Max: 20 SpO2: SpO2 Av.5 % Min: 95 % Max: 96 % SpO2: SpO2 Av.5 % Min: 95 % Max: 96 % FiO2%: No data recorded ICP: No data found.CPP (adult): No data found.Intake Input/Output: (last 24 hours) Intake/Output Summary (Last 24 hours) at 03/30/2024 1058 Last data filed at 03/30/2024 1000 Gross per 24 hour Intake 1000 ml Output 200 ml Net 800 ml Wound Care: clean, dry, intact Neurologic Examination Amrit Coma Scale (GCS): Eyes Open: 4 = spontaneous Best Verbal Response: 2 = incomprehensible, grunts Best Motor Response: 6 = obeys commands appropriate for age PERRL L gaze preference can be overcome RUE/RLE trace withdrawal LUE/LLE follows Sensation grossly intact x4 LABS: Blood count: Lab Results Component Value Date/Time WBC 10.26 03/30/2024 10:07 AM WBC 12.66 (H) 08/11/2014 04:11 PM HGB 13.1 03/30/2024 10:07 AM HGB 14.5 10/01/2022 12:00 AM HGB 16.1 (H) 08/11/2014 04:11 PM HCT 39.5 03/30/2024 10:07 AM HCT 47.5 (H) 08/11/2014 04:11 PM PLT 267 03/30/2024 10:07 AM PLT 398 08/11/2014 04:11 PM Coagulation studies: Lab Results Component Value Date/Time INR 1.3 (H) 08/03/2022 05:52 AM INR 0.94 08/11/2014 04:11 PM Chemistry: Lab Results Component Value Date/Time BUN 16 03/30/2024 10:07 AM BUN 24 (H) 08/11/2014 04:11 PM CREAT 0.5 03/30/2024 10:07 AM CREAT 0.83 10/01/2022 12:00 AM CREAT 0.8 08/11/2014 04:11 PM GFRESTIMATED >60.0 08/11/2014 04:11 PM NA 139 03/30/2024 10:07 AM NA 141 08/11/2014 04:11 PM POTASSIUM 3.9 03/30/2024 10:07 AM POTASSIUM 4.2 10/01/2022 12:00 AM POTASSIUM 4.5 08/11/2014 04:11 PM CO2 17 (L) 03/30/2024 10:07 AM CO2 26 08/11/2014 04:11 PM Imaging studies: No new images Problem list: Active Problems: * No active hospital problems. * Resolved Problems: * No resolved hospital problems. * CLINICAL HISTORY AND PLAN: 74 year old female w/ PMH significant for a-fib (on xarelto), obesity, HTN, HLD, and DM2 who presents to the neurosurgery service for DSA and possible mechanical thrombectomy for L M1 occlusion on CTH/CTA. LKW 03/29 10pm. Found by family to have L gaze, R weakness, and aphasia. OSH NIH 24. No TNK as patient is on xarelto. CTH/CTA with above findings. No s/p L M1 MT TICI3 (03/30/2024, Dr. Monteiro). q1h neuro checks, vitals SBP goal 100-180 Keep bed flat for 6 hours NPO while flat Maintenance fluids as needed MRI brain wo contrast for prognostication stroke care per neurology Antiplatelet/anticoagulation per neurology post angiogram orders as written neurovascular checks as ordered if hemorrhage is noted, please apply direct pressure for 15 minutes; call Neurosurgery service if it persists or hematoma is observed PT/OT/Speech Therapy OOB as tolerated The author of this note may not be honing machine try out setter at this time. Please check the phonebook for the neurosurgery first call for any additional questions. Patient was discussed with attending physician Cosigned by Yannick Monteiro MD, PhD at 03/30/2024 2:28 PM EST Associated attestation - Yannick Monteiro MD, PhD - 03/30/2024 2:28 PM EST I saw and evaluated the patient today. I have reviewed the resident/fellow physician note and agree. Updated daughter and spouse via phone. documented in this encounter H&P Notes * Susanne Porter MD - 03/30/2024 8:48 AM EST HISTORY & PHYSICAL EXAMINATION - Critical Care Medicine [address] [address] Name: Verena Field Location: [facility] [place] A545/[id number] Date: 03/30/2024 Date of admission: 03/30/2024 PRESENTING PROBLEM: Acute ischemic stroke- Proximal LEFT M1 MCA occlusion s/p mechanical thrombectomy HISTORY OF PRESENT ILLNESS: Verena Field is a 74 year old female w/ PMHX Paroxysmal Afib (Xarelto, Flecanide 100 BID and Lopressor 50 BID) Non obstructive CAD RBBB Recurrent PE (last 2016 on Xarelto) Obesity HTN (Triamterne HXTZ 75-50) HLD (crestor 5, Zetia - statin intolerance) T2DM (Metformin, last A1c 7.2) H/o skin cancer: melanoma in situ, right upper back 2022 Hx BCC L midback 04/2017, BCC L clavicle 2008 Hx [place] Hx breast (s/p double mastectomy) and uterine CA (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 LKW was 03/28 at 2200. Found to have. L gaze, R weakness, and aphasia. OSH NIH 24. No TNK as patient is on xarelto. CTH/CTA with M1 occlusion. Taken to angio directly by neurosurgery. Patient returned from thrombectomy and is unable to speak Subjective PAST MEDICAL HISTORY: Past Medical History: Diagnosis Date Atrial fibrillation (HCC) CA IN SITU BREAST (left) 03/15/2003 Endometrial cancer (HCC) 02/01/2013 HTN, goal below 140/90 MALIGN NEOPL BREAST NOS Malignant neoplasm of female breast (HCC) 07/04/1995 bilateral DCIS with involved margins Multiple pulmonary nodules NONE 02/15/2005 left stereo bx at [facility] by Dr. Watt Osteomyelitis of left foot (HCC) 07/30/2022 Pulmonary embolus (HCC) 07/02/2005 Recurrent pulmonary embolism (HCC) PAST SURGICAL HISTORY: Past Surgical History: Procedure Laterality Date BREAST RECONSTRUCTION W/TRAM 01/29/01 right breast COMPLETE REMOVAL OF BREAST, SIMPLE 06/07/05 left simple mas. with implant at [facility] by DRAINAGE OF ABDOMINAL ABSCESS 12/17/2010 DRAINAGE OF ABDOMEN ABSCESS OPEN performed by ELENO BLEDSOE at [facility] INCISION OF BREAST LESION, DEEP 07/04/95 right breast re-excision of involved margins NIPPLE/AREOLA RECONSTRUCTION 01/29/01 fir stage (Dr. Abdalla) PARTIAL AMPUTATION OF TOE Left 07/31/2022 AMPUTATION TOE INTERPHALANGEAL JOINT performed by Yonis Henriquez DO at [facility] PARTIAL MASTECTOMY 07/04/95 left breast segmental mastectomy PROSTHETIC MAT/MESH, ABD, NECROTIC, REMOVAL 12/17/2010 REMOVAL MESH ABDOMINAL WALL NECROTIZING SOFT TISSUE INFECTION performed by ELENO BLEDSOE OR [facility] [place] RADIATION TREATMENT DELIVERY 08/10to09/18/95 left breast 5,040 cGy REMOVAL OF OVARY(S) age 14 Oopherectomy,Uni, REMOVE TONSILS & ADENOIDS, UNDER 12 age 3 Tonsillectomy/Adenoids,<10 Y/O REPAIR INITIAL INCISIONAL OR VENTRAL HERNIA; REDUCIBLE 12/17/2010 REPAIR INITIAL INCISIONAL /VENTRAL HERNIA REDUCIBLE performed by ELENO BLEDSOE at OR [facility] [place] SUCTION REMOVE FAT TISSUE, TRUNK 01/29/01 right breast THIGH OR KNEE SURGERY NEC 1997, 1998 Knee/Leg Other Procedures Unlisted TOTAL ABD HYSTERECTOMY W/WO REMOVAL OF TUBE(S) 12/17/2010 TOTAL ABDOMINAL HYSTERECTOMY WITH OR WITHOUT TUBES AND OVARIES performed by ELENO BLEDSOE at OR [facility] [place] FAMILY HISTORY: non-contributory Family History Problem Relation Name Age of Onset Cancer Father prostate ca Diabetes Mother Heart Disorder Mother Stroke Mother Cancer Grandfather (Paternal) Heart Disorder Grandfather (Maternal) Heart Disorder Grandmother (Maternal) Stroke Grandmother (Maternal) SOCIAL HISTORY: Social History Tobacco Use Smoking status: Never Smokeless tobacco: Never Vaping Use Vaping status: Never Used Substance Use Topics Alcohol use: Yes Comment: rarely Drug use: No PRIOR TO ADMISSION MEDS: Current Outpatient Medications Medication Instructions Acetaminophen (TYLENOL) 650 mg, Oral, Q6H PRN Allopurinol 300 MG Oral Tablet (Zyloprim) 300 mg orally daily; 1 and 1/2 tabs daily Colchicine 0.6 MG Oral Tablet Take 1 tablet by mouth three times daily as needed Ezetimibe (ZETIA) 10 mg, Oral, Daily(AM) flecainide (TAMBOCOR) 100 mg, Oral, BID (.AM/PM) Fluocinonide 0.05 % External Solution Apply to scalp nightly as needed Furosemide 40 MG Oral Tablet (Lasix) TAKE ONE TABLET BY MOUTH EVERY DAY NEEDED FOR SWELLING Hydrocortisone 2.5 % External Cream Apply to affected areas on face (alar creases, left lateral nasal root) twice daily as needed Ketoconazole 2 % External Shampoo (Nizoral) Use as shampoo on scalp at least 3 times weekly, lather, wait 5 min, then rinse LORAzepam (ATIVAN) 0.5 MG Tablet TAKE 1 TABLET BY MOUTH NEEDED FOR ANXIETY. Magnesium 200 MG Oral Tablet Chewable Oral metFORMIN HCl ER 500 MG Oral Tablet Extended Release 24 Hour (Glucophage XR) take 2 tablets by mouth twice daily Metoprolol Tartrate 50 MG Oral Tablet (Lopressor) TAKE ONE TABLET BY MOUTH TWICE A DAY, IN THE MORNING AND BEFORE BEDTIME metroNIDAZOLE 0.75 % External Cream (MetroCream) Apply to affected areas of the face daily for maintenance, twice daily for flares Multivitamin Adult Extra C Oral Tablet Chewable 1 Tablet, Oral, Daily(AM) Potassium Chloride Shaina ER 10 MEQ Oral Tablet Extended Release TAKE 1 TABLET BY MOUTH THREE TIMES AWEEK Rivaroxaban 15 MG Oral Tablet (Xarelto) Take one tablet by mouth every morning Rosuvastatin Calcium 5 MG Oral Tablet (Crestor) Take one tab three days per week. Triamterene-HCTZ 75-50 MG Oral Tablet (Maxzide) TAKE ONE TABLET BY MOUTH THREE DAYS PER WEEK. Vitamin B Complex-C Oral Capsule 1 Capsule, Oral, DAILY NOON ALLERGIES: Levofloxacin ROS: Review of systems could not be completed, patient has global aphasia Objective CONSTITUTIONAL DATA / OBJECTIVE: Vital Signs (Most Recent): Pulse: 70 (03/30/24 1100) BP: 176/69 (03/30/24 1100) Resp: 18 (03/30/24 1100) Temp: 36.5 C (97.7 F) (03/30/24 1000) SpO2: 96 % (03/30/24 1100) Vital Signs (Last 24 Hours): Pulse Av Min: 67 Max: 71 Most Recent Systolic BP Av.5 mmHg Min: 156 mmHg Max: 176 mmHg Resp Av.3 Min: 18 Max: 27 Most Recent Temperature Av.4 C Min: 36.39 C Max: 36.5 C SpO2 Av.7 % Min: 95 % Max: 96 % Ventilatory Support: IPAP: CPAP/EPAP: Ventilator Settings: Intake & Output Summary (Last 24 hours): No intake or output data in the 24 hours ending 03/30/24 0849 Net IO Since Admission: No IO data has been entered for this period [03/30/24 0849] Height & Weight: Weight: 110.4 kg (243 lb 6.2 oz) (03/30/24 0940) Wt Readings from Last 3 Encounters: 03/30/24 110.4 kg (243 lb 6.2 oz) 11/04/23 105.7 kg (233 lb 1.6 oz) 10/06/23 108 kg (238 lb) Weight change: Body mass index is 39.28 kg/m. Physical Examination: General: Patient in no apparent distress. HEENT: normocephalic, atraumatic. HOB at 0 Heart: regular rate and rhythm; S1 and S2 present; no murmurs auscultated Pulmonary: Lungs clear to auscultation bilaterally; no wheezes, rhonchi or crackles. Abdomen: Soft, non-tender, non-distended. Normal bowel sounds and no rebound or guarding. MSK: Patient able to move left arm independently. Not able to raise right arm. Right leg with triple flexion. Left leg wiggles toes. Toe amputation Extremities: No pitting edema present at lower extremity bilaterally Skin: [place], warm, no wounds or lesions present. Neuro: NIH Stroke Scale: 1a. Level of Consciousness: alert = 0 1b. LOC Questions: (month, age): aphasic or stuporous patient who does not comprehend the questions= 2 1c. LOC Commands (open and close eyes, make fist and let go using non-paretic hand): both incorrect= 2 2. Best Gaze (eyes open and patient follows examiner's finger or face): normal = 0 3. Visual (visual threat or finger counting in each quadrant): no loss = 0 4. Facial Palsy (show teeth, raise eye brows and squeeze eyes shut, or grimace symmetry in a comatose patient): partial paralysis (lower face paralysis) = 2 5a. Motor Arm (extend arm (palms down) to 90 degrees and score drift/movement (10 seconds) - Left: no drift = 0 5b. Motor Arm: (extend arm (palms down) to 90 degrees and score drift/movement (10 seconds) - Right: no movement at all = 4 6a. Motor Leg (elevate leg 30 degrees and score drift/ movement (5 seconds) - Left: no drift = 0 6b. Motor Leg (elevate leg 30 degrees and score drift/ movement (5 seconds) - Right: some effort against gravity (extremity drifts downward and hits the bed) = 2 7. Limb Ataxia (finger to nose, heel down recinos): present in two limbs = 2 8. Sensory (pin prick to face, arm, trunk and leg, compare side to side): partial loss (decreased sensation) = 1 9. Best Language: severe aphasia = 2 10. Dysarthria (evaluate speech clarity by patient repeating listed words): mute/anarthic = 2 11. Extinction and Inattention: profound neglect (extinction to more than one modality, or profoundhemi-inattention) = 2 Total: 20 Urethral Catheter Latex;Regular catheter (Active) Number of days: 0 Peripheral Line Left;Lower;Posterior Arm 18 Gauge (Active) Number of days: Peripheral Line Lower;Right Arm 20 Gauge (Active) Number of days: 0 Peripheral Line Left;Lower Arm 20 Gauge (Active) Number of days: 0 Laboratory Values: reviewed. Blood Gas No results in the last 7 days - inpatent use only Chemistry Panel Lab results within last 7 days (see chart for full results) Units 03/30/24 1007 SODIUM mmol/L 139 POTASSIUM mmol/L 3.9 CHLORIDE mmol/L 104 CO2 mmol/L 17* BUN mg/dL 16 CREATININE mg/dL 0.5 GLUCOSE mg/dL 246* CALCIUM mg/dL 7.7* Magnesium mg/dL 2.0 Phosphorus mg/dL 2.8 Complete Blood Count Lab results within last 7 days (see chart for full results) Units 03/30/24 1007 WBC K/uL 10.26 HGB g/dL 13.1 HCT % 39.5 PLT K/uL 267 MCV fL 95.2 Cardiac Studies No results in the last 7 days - inpatent use only Coagulation Studies Lab results within last 7 days (see chart for full results) Units 03/30/24 1041 Prothrombin Time seconds 13.3 INR 1.0 aPTT seconds 25 Liver Function Panel Lab results within last 7 days (see chart for full results) Units 03/30/24 1007 Albumin g/dL 3.1* Protein g/dL 5.7* Bilirubin, Total mg/dL 0.3 AST U/L 16 ALT U/L 12 Alkaline Phosphatase U/L 90 Toxicology Studies No results in the last 7 days - inpatent use only Infectious Studies: No results in the last 7 days - inpatent use only Cultures: reviewed. No results in the last 7 days - inpatent use only Recent Cultures (2 Weeks) No lab values to display. Radiographic Studies: reviewed. No imaging results in the last 72 hours Assessment & Plan CRITICAL CARE SYSTEM REVIEW & ASSESSMENT/PLAN: Active Problems: * No active hospital problems. * POA = Present On Admission NEUROLOGICAL: Acute ischemic stroke Proximal LEFT M1 MCA occlusion s/p mechanical thrombectomy + 6 vessel angiogram TICI score 3. Neurosurgery consulted, appreciate recs HOB flat for 6 hours MRI CTH tomorrow Neurology consulted, appreciate recs RASS Goal: 0 RASS Assessment: -1 Drowsy (03/30/24 1000) Analgesia/Sedation: none Pain Control: none Current Paralytic: none Spontaneous Awakening Trial (SAT): daily, per protocol N/A Delirium/Confusion Assessment: PULMONARY / RESPIRATORY: No acute issues SpO2 >92% CARDIOVASCULAR: Hx of Paroxysmal Afib Hx Non obstructive CAD Hx RBBB Hx Recurrent PE (last 2017 on Xarelto) Hx of HTN Hx of HLD Vasopressors: None Goal: Normotension MAP goal > 65. sbp 100-180 Antiplatelets per Neurology ASA ok Hold CREDIT CARD ANALYST Xarelto, Flecanide 100 BID and Lopressor 50 BID GASTROINTESTINAL / HEPATOBILIARY: No acute issues Bowel Regimen: held for NPO . Stress Ulcer Prophylaxis: not indicated at this time.. Diet / Nutrition: NPO until cleared by speech RENAL / METABOLIC / FLUIDS: No acute issues Baseline Cr 0.5-0.7. Most Recent: Creatinine clearance cannot be calculated (Unknown ideal weight.) Monitor electrolytes at least daily. Replete electrolytes as indicated. Avoid Nephrotoxins including NSAIDS and IV contrast when able Strict monitoring of fluid intake and output. Renal dosing and medication considerations adjusted for glomerular filtration rate. Daily weights. INFECTIOUS DISEASES: No acute concerns ENDOCRINE: T2DM SSI Blood Glucose Monitoring (BGM) Goal: 140-180. 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 / MOBILITY: Ischemic stroke Speech Rehab PT/OT DERMATOLOGIC / WOUND CARE: No acute concerns Wound care PRN LINES / DRAINS / TUBES: LINES ALL Duration Peripheral Line Left;Lower;Posterior Arm 18 Gauge -- days Peripheral Line Left;Lower Arm 20 Gauge <1 day Peripheral Line Lower;Right Arm 20 Gauge <1 day Supplemental Airway NRB <1 day Urethral Catheter Latex;Regular catheter <1 day List of services consulted/following: ADULT OCCUPATIONAL THERAPY CONSULT IP ADULT PHYSICAL THERAPY CONSULT IP ADULT SPEECH THERAPY CONSULT IP (ACUTE CARE REHAB) CARE MANAGEMENT CONSULT IP NEUROLOGY CONSULT IP REHAB CONSULT IP GLOBAL ISSUES: Code Status: Full Code Analgesia: no pain Sedation: N/A Delirium/Confusion Assessment Method for ICU (CAM-ICU): CAM-ICU negative HOB Elevation: contraindicated Nutrition: NPO DVT Prophylaxis: pneumatic compression devices alone due to chemoprophylaxis contraindication Stress Ulcer Prophylaxis: not indicated Glycemic Control: controlled - protocol Oral hygiene every four hours Chlorhexidine mouth rinse every twelve hours Central Line Necessity Reviewed: N/A Barry: reviewed and needed Disposition: keep in ICU Patient's decisional capacity: does not have capacity to make decisions Communication with Patient/Family: No meeting held. Conversation over the phone - family will be atbedside later today Goals of Care: stabilize hemodynamic status Patient was discussed with attending physician, MD Susanne Hartmann MD Resident Physician This chart was completed in part utilizing Udex Speech Voice Recognition Software. Grammatical errors, random word insertions, pronoun errors, and incomplete sentences are an occasional consequence of this system due to software limitations, ambient noise, and hardware issues. Any formal questions or concerns about the content, text, or information contained within the body of this dictation should be directly addressed to the provider for clarification. Cosigned by Art Ybarra MD at 03/30/2024 1:47 PM EST Associated attestation - Art Ybarra MD - 03/30/2024 1:47 PM EST I saw and evaluated the patient today. I have reviewed the resident/fellow physician note and agree. L MCA CVA with M1 occlusion - s.p thrombectomy Atrial fibrillation-on Xarelto Chronic issues: Hypertension,, DM type 2, breast cancer needing bilateral mastectomy and uterine cancer, recurrent PE - q.1h neuro checks. She has dense motor and sensory aphasia with right-sided efraín-neglect and hemiplegia. Right facial weakness and left gaze preference noted. - plan for CT head in 24 hours and MRI without contrast stroke protocol to assess stroke burden. - maintain SBP less than 180 mmHg. Slowly reintroduce her [employer] antihypertensives from tomorrow. - hold off on systemic anticoagulation until MRI is completed and timing of resumption of anticoagulation can be decided thereafter. Start aspirin and Zetia. - obtain echocardiogram. - Neurology and Neurosurgery evaluation/follow-up. - speech therapy and physical therapy evaluation. Likely to need NG tube. - rest as per resident's note. 35 minutes of critical time spent in direct patient care exclusive of procedures and other providers. Art Ybarra MD This chart was completed in part utilizing [employer] Speech Voice Recognition Software. Grammatical errors, random word insertions, pronoun errors, and incomplete sentences are an occasional consequence of this system due to software limitations, ambient noise, and hardware issues. Any formal questions or concerns about the content, text, or information contained within the body of this dictation should be directly addressed to the provider for clarification. documented in this encounter Procedure Notes * Stephen Geronimo MD - 03/30/2024 11:46 AM ESTAssociated Order(s): EKG REASON FOR STUDY: STROKE CONCLUSIONS: Normal sinus rhythm with 1st degree AV block Right bundle branch block Abnormal ECG When compared with ECG of 04-Nov-2023 09:36, No significant change was found Ventricular Rate: 71 Atrial Rate: 71 [place] Interval: 206 QRS Duration: 144 QT/QTc: 484/525 ms P-R-T Evant: 81 : 33 : 32 degrees documented in this encounter Consult Notes * David Troncoso MD - 04/01/2024 10:26 PM ESTAssociated Order(s): REHAB CONSULT IP See consult note from 03/31 and progress note on 04/01. Will continue to follow. * Mariangel Gan MSW - 03/31/2024 11:51 AM ESTAssociated Order(s): CARE MANAGEMENT CONSULT IP Please see ancillary notes. CM to continue to follow throughout hospitalization. Thanks * Jaimie Plata OTR/Jennifer - 03/31/2024 10:33 AM ESTAssociated Order(s): ADULT OCCUPATIONAL THERAPY CONSULT IP GENERAL EVALUATION - Occupational Therapy [address] [address] Name: Verena Field Location: [facility] [place] A545/A Date: 03/31/2024 Time: 3:17 PM Verena Field is a 74 year old female. Patient Status: Inpatient Insurance: Payor: [facility] Plan: [facility] [employer] PREFERRED ENHANCED MP-DD Product Type: *No Product type* Patient Seen: at bedside, nursing cleared patient for therapy Patient Identified By: Name, ID Band and Date Diagnosis: stroke (03/31/24 1033) Status of treatment: Evaluation completed (03/31/241032) Orders: OT evaluation and treatment;OT OOB (03/31/241032) Weight Bearing Status: Weight bearing as tolerated (03/31/241032) Precautions: Alarms;Falls;Safety (03/31/24 103) Total Treatment Time: 24 (03/31/24 103) Past Medical History: Past Medical History: Diagnosis Date Atrial fibrillation (HCC) CA IN SITU BREAST (left) 03/15/2003 Endometrial cancer (HCC) 02/01/2013 HTN, goal below 140/90 MALIGN NEOPL BREAST NOS Malignant neoplasm of female breast (HCC) 07/04/1995 bilateral DCIS with involved margins Multiple pulmonary nodules NONE 02/15/2005 left stereo bx at [facility] by Dr. Watt Osteomyelitis of left foot (HCC) 07/30/2022 Pulmonary embolus (HCC) 07/02/2005 Recurrent pulmonary embolism (HCC) Past Surgical History: Past Surgical History: Procedure Laterality Date BREAST RECONSTRUCTION W/TRAM 01/29/01 right breast CAROTID (INTERNAL) ARTERY CATHETHER PLACEMENT N/A 03/30/2024 CATHETER PLACEMENT INTERNAL CAROTID ARTERY performed by Yannick Monteiro MD, PhD at OR [facility] [place] COMPLETE REMOVAL OF BREAST, SIMPLE 06/07/05 left simple mas. with implant at [facility] by DRAINAGE OF ABDOMINAL ABSCESS 12/17/2010 DRAINAGE OF ABDOMEN ABSCESS OPEN performed by ELENO BLEDSOE at [facility] INCISION OF BREAST LESION, DEEP 07/04/95 right breast re-excision of involved margins NIPPLE/AREOLA RECONSTRUCTION 01/29/01 [facility] stage (Dr. Abdalla) PARTIAL AMPUTATION OF TOE Left 07/31/2022 AMPUTATION TOE INTERPHALANGEAL JOINT performed by Yonis Henriquez DO at [facility] PARTIAL MASTECTOMY 07/04/95 left breast segmental mastectomy PROSTHETIC MAT/MESH, ABD, NECROTIC, REMOVAL 12/17/2010 REMOVAL MESH ABDOMINAL WALL NECROTIZING SOFT TISSUE INFECTION performed by ELENO BLEDSOE at [facility] RADIATION TREATMENT DELIVERY 08/10to09/18/95 left breast 5,040 cGy REMOVAL OF OVARY(S) age 14 Oopherectomy,Uni, REMOVE TONSILS & ADENOIDS, UNDER 10 age 3 Tonsillectomy/Adenoids,<10 Y/O REPAIR INITIAL INCISIONAL OR VENTRAL HERNIA; REDUCIBLE 12/17/2010 REPAIR INITIAL INCISIONAL /VENTRAL HERNIA REDUCIBLE performed by ELENO BLEDSOE at OR [facility] [place] SUCTION REMOVE FAT TISSUE, TRUNK 01/29/01 right breast THIGH OR KNEE SURGERY NEC 1997, 1998 Knee/Leg Other Procedures Unlisted TOTAL ABD HYSTERECTOMY W/WO REMOVAL OF TUBE(S) 12/17/2010 TOTAL ABDOMINAL HYSTERECTOMY WITH OR WITHOUT TUBES AND OVARIES performed by ELENO BLEDSOE at OR [facility] [place] VERTEBRAL ARTERY CATHETER PLACEMENT N/A 03/30/2024 CATHETER PLACEMENT VERTEBRAL ARTERY, performed by Yannick Monteiro MD, PhD at OR [facility] [place] Social History/Disposition Lives with: Unable to obtain from patient/family (03/31/241032) Prior Level of Function Reported by: Unable to obtain from patient / family (03/31/241032) Observations Consciousness: Alert (03/31/241032) Cognitive Limitations: Visual attention;Processing (03/31/241032) Psychosocial: Patient cannot communicate basic needs. (Pt cannot communicate verbally) (03/31/241032) Sitting posture: Forward head;Rounded shoulders;Right lateral lean (03/31/241032) Standing posture: Rounded shoulders;Right lateral lean;Forward head (03/31/241032) Safety awareness: Needs cueing supervision. (03/31/241032) Other Findings Endurance: Functional activity;Fair (03/31/241032) Coordination: RUE;Gross motor;Fine motor;Impaired (03/31/241032) Current Functional Status: Bilateral Upper Extremity Range of Motion: WFL, except (03/31/241032) LUE: (WFL) (03/31/241032) RUE: (WFL via PROM) (03/31/241032) Strength Assessment: Deficits noted (03/31/241032) LUE: 3/5 (03/31/241032) RUE: 0/5 (03/31/241032) Self Care Able to provide self care: Yes (03/31/241032) Feeding: Minimal Assistance (Pt able to bring left hand to mouth while holding form but unable to process the need of piercing food with utensil) (03/31/241032) Grooming: Minimal Assistance (comb hair with left hand) (03/31/241032) Dressing Upper Body: Maximal Assistance (03/31/241032) Lower Body: Dependent (03/31/241032) Bed Mobility Supine-Sit: Maximal Assistance (x2) (03/31/241032) OT Transfers Sit-Stand: Maximal Assistance (x2) (03/31/241032) Stand-Sit: Maximal Assistance (x2) (03/31/241032) Bed-Chair: Maximal Assistance (x2 via stand pivot) (03/31/241032) Balance Sit (Static): Poor (03/31/241032) Sit (Dynamic): Poor (-) (03/31/241032) Stand (Static): Poor (-) (03/31/241032) Stand (Dynamic): Poor (-) (03/31/241032) Alarm Status Patient positioned in: Chair (03/31/241032) With: Pressure pad alarm intact and functioning and call el in reach (03/31/241032) Patient and Family Goals: to get well Patient Education Education Topic: Role of OT;Plan of care goals (03/31/241032) Review of Precautions: Safety;Fall (03/31/241032) Barriers to learning: Medical status (03/31/241032) Preferred learning method: Combination (03/31/241032) Treatment Provided: Therapeutic Activity: 14 minutes Evaluation Moderate Complexity 10 minutes - [id number]: Patient was cooperative during treatment session. Moderate complexity evaluation performed and 3-5 activity limitations were identified, including ADL deficit, functional mobility deficit, bed mobility deficit, decreased strength, decreased endurance, and impaired balance. Minimal or moderate modification of the functional task was necessary to complete the evaluation. Deficits Requiring O.T. Treatment: Deficits requiring O.T. treatment needs: ADL/self-care;Balance;Endurance;Functional mobility;Upper extremity strength;Safety;Weakness (03/31/241032) Goal Time Frame: 10 visits Assessment: Pt is a 74 year old female admitted to [facility] [place] with a dx of L M1 occlusion. Pt currently presents with deficits in aphasia, however it appears to be mostly expressive aphasia, as she was ableto demonstrate command follow of at least 50%. Pt presents with RUE weakness, as she is 0/5 strength throughout all joints. Pt also noted to have a left gaze preference, but is able to slightly visually track to the right. Pt is able to cross midline with left UE. Pt was unable to verbally communicate, however was able to give "thumbs up" for "yes." Pt completed bed mobility with Max Ax2. Pt sat EOB ~10 minutes, presenting with a right lateral lean, as she was pushing with LUE to the side. Pt required Min A for grooming while using left hand, and needed Max A to total assistance for dressing ADLs, secondary to decreased balance and decreased ability to complete tasks one-handed. Pt completed sit to stand transfer from EOB with Max Ax2. Pt continued to present with a right lateral lean in standing. Pt completed stand pivot transfer to bedside chair with Max Ax2. Pt would benefit from skilled OT services in order to increase independence and facilitate a safe transition to next level ofcare. Please consider post-acute care services which may include home health, mcc, outpatient therapy or inpatient rehabilitation. The level of care will be determined in collaboration with patient, family/caregiver and care team members. This therapist recommended pt to wear a right resting hand splint, secondary to pt having no activeROM in right wrist and digits. Pt noted to have slight tone in elbow with quick extension stretch. Therapist reached out to pt's physician for permission to provide pt with resting hand splint. Therapist donned splint onto pt's right hand/wrist. Pt should wear splint for 4 hours on, 4 hrs off in order to decrease risk of joint contractures and protect overall joint integrity. Splint should be deferred if pt has skin breakdown. Goals: BUE Strength/ROM Increase BUE strength to at least one muscle grade. Improve RUE ROM to WFL in order to increase independence with ADLs. Pt will tolerate right resting hand splint for 4 hrs without c/o discomfort ADLs Increase UE dressing to Min A. Increase UE bathing to Min A. Increase LE dressing to Mod a. Increase LE bathing to Mod A. Increase grooming to supervision. Increase self-feeding to supervision with use of adaptive utensils if needed Bed Mobility/Functional Mobility Increase bed mobility to Min Ax2 Functional Transfers Increase functional sit to stand transfers during ADLs to Min Ax2. Increase transfers to toilet to Min Ax2 via stand pivot. Increase transfers from bed to chair with Min Ax2 via stand pivot.. Balance Increase sitting balance at EOB to poor+ during ADLs. Increase standing balance to poor during ADLs. Treatment Plan: Safety, Bed mobility training, Functional Ambulation, Transfer training, Upper extremity strengthening, Balance activities, ADL training , and Endurance Anticipated Frequency (on eval): 3 to 5 times per week (03/31/241032) AM-PAC Help From Another Person Eating Meals: A little (03/31/241032) Help From Another Person Taking Care of Personal Grooming: A little (03/31/241032) Help From Another Person To Put On/Take Off Upper Body Clothing: A lot (03/31/241032) Help From Another Person To Put On/Take Off Lower Body Clothing: Total (03/31/241032) Help From Another Person Toileting: Total (03/31/241032) Help From Another Person Bathing: Total (03/31/241032) OT AM-PAC Score: 11 (03/31/241032) OT AM-PAC t-Scale Score: 29.04 (03/31/241032) HLM (Highest Level of Mobility) Goal: Level 4 move to chair/commode (03/31/24 0841) A portion of this AM-PAC assessment not scored based on functional assessment, rather clinical decsion making utilized based on current findings and/or prior level of function. Please refer to futureAM-PAC calculations of functional ability as they become available. * Soraya Turner SLP - 03/31/2024 9:46 AM EST COGNITIVE COMMUNICATION ASSESSMENT - Speech-Language Pathology [address] [address] Name: Verena Field Location: [facility] [place] A545/A Date: 03/31/2024 Time: 9:46 AM Patient Status: Inpatient Insurance: Payor: [facility] [employer] / Plan: [facility] [employer] PREFERRED ENHANCED MP-DD / Product Type: *No Product type* / Patient Age: [age] year old Referring Physician: Susanne Porter MD Admission Date: 03/30/2024 History: Per Epic H&P "Verena Field is a 74 year old female w/ PMHX Paroxysmal Afib (Xarelto, Flecanide 100 BID and Lopressor 50 BID) Non obstructive CAD RBBB Recurrent PE (last 2016 on Xarelto) Obesity HTN (Triamterne HXTZ 75-50) HLD (crestor 5, Zetia - statin intolerance) T2DM (Metformin, last A1c 7.2) H/o skin cancer: melanoma in situ, right upper back 2022 Hx BCC L midback 04/2017, BCC L clavicle 2008 Hx [place] Hx breast (s/p double mastectomy) and uterine CA (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 LKW was 03/28 at 2200. Found to have. L gaze, R weakness, and aphasia. OSH NIH 24. No TNK as patient is on xarelto. CTH/CTA with M1 occlusion. Taken to angio directly by neurosurgery. Patient returned from thrombectomy and is unable to speak." Past Medical History: Diagnosis Date Atrial fibrillation (HCC) CA IN SITU BREAST (left) 03/15/2003 Endometrial cancer (HCC) 02/01/2013 HTN, goal below 140/90 MALIGN NEOPL BREAST NOS Malignant neoplasm of female breast (HCC) 07/04/1995 bilateral DCIS with involved margins Multiple pulmonary nodules NONE 02/15/2005 left stereo bx at [facility] by Dr. Watt Osteomyelitis of left foot (HCC) 07/30/2022 Pulmonary embolus (HCC) 07/02/2005 Recurrent pulmonary embolism (HCC) Past Surgical History: Procedure Laterality Date BREAST RECONSTRUCTION W/TRAM 01/29/01 right breast COMPLETE REMOVAL OF BREAST, SIMPLE 06/07/05 left simple mas. with implant at [facility] by DRAINAGE OF ABDOMINAL ABSCESS 12/17/2010 DRAINAGE OF ABDOMEN ABSCESS OPEN performed by ELENO BLEDSOE at [facility] INCISION OF BREAST LESION, DEEP 07/04/95 right breast re-excision of involved margins NIPPLE/AREOLA RECONSTRUCTION 01/29/01 [facility] stage (Dr. Abdalla) PARTIAL AMPUTATION OF TOE Left 07/31/2022 AMPUTATION TOE INTERPHALANGEAL JOINT performed by Yonis Henriquez DO at [facility] PARTIAL MASTECTOMY 07/04/95 left breast segmental mastectomy PROSTHETIC MAT/MESH, ABD, NECROTIC, REMOVAL 12/17/2010 REMOVAL MESH ABDOMINAL WALL NECROTIZING SOFT TISSUE INFECTION performed by ELENO BLEDSOE at OR [facility] [place] RADIATION TREATMENT DELIVERY 08/10to09/18/95 left breast 5,040 cGy REMOVAL OF OVARY(S) age 14 Oopherectomy,Uni, REMOVE TONSILS & ADENOIDS, UNDER 12 age 3 Tonsillectomy/Adenoids,<10 Y/O REPAIR INITIAL INCISIONAL OR VENTRAL HERNIA; REDUCIBLE 12/17/2010 REPAIR INITIAL INCISIONAL /VENTRAL HERNIA REDUCIBLE performed by ELENO BLEDSOE at OR [facility] [place] SUCTION REMOVE FAT TISSUE, TRUNK 01/29/01 right breast THIGH OR KNEE SURGERY NEC 1997, 1998 Knee/Leg Other Procedures Unlisted TOTAL ABD HYSTERECTOMY W/WO REMOVAL OF TUBE(S) 12/17/2010 TOTAL ABDOMINAL HYSTERECTOMY WITH OR WITHOUT TUBES AND OVARIES performed by ELENO BLEDSOE at OR [facility] [place] Imaging: CT HEAD/BRAIN WO CONTRAST 03/31/24 "IMPRESSION: Evolving large early subacute infarction involving the left CORINA and MCA territories without significantly increased mass effect or evidence of hemorrhagic transformation. No other areas suspicious for acute infarction identified. Chronic microvascular white matter disease and parenchymal volume loss. Additional findings as above." Educational History: Unable to obtain from pt Prior Functional Level: Reported by Unable to obtain from pt Money Management is done by: Unable to obtain from pt Homemaking: Unable to obtain from pt Shopping: Unable to obtain from pt Occupation: Unable to obtain from pt Barriers to Learning: None Known and Medical Status Hearing Acuity: Deferred Best Learning Method: Combination Patient/Family Goal(s): None stated Pain: No Complaints of Pain Assessment / Diagnosis: Pt presents with severe language impairments impacting expressive and receptive language. Pt requires mod-max assist to follow simple commands- does best with direct imitation. Perseveration on head shake to indicate "yes" for all y/n questions. Pt with limited attempts to communicate via any modality. Pt was observed to attempt to repeat clinician's verbally presented stimuli, as evidenced by mouth movements; however, attempt aborted with no verbal output. Unable to assess cognition d/t severity of language impairments. Cognitive-Communication Rehab Potential: Fair RECOMMENDATIONS / TREATMENT PLAN: Tfxloi-Cylatxbw-Sivpxwymb-Communication Therapy: Indicated for length of hospital stay Communication Goals: Pt will identify the correct object in a field of 2 with 80% accuracy when given max clinician cues. Pt will follow simple 1-step commands with 80% accuracy and mod clinician assistance. Pt will answer simple y/n questions with 80% accuracy and mod clinician assistance. Pt will answer simple wh questions regarding personal information with 60% accuracy and max clinician assistance. Pt will name items with 60% accuracy with max clinician assistance. ANTICIPATED FREQUENCY (ON EVAL): 1-3 times per week PATIENT/FAMILY EDUCATION: Topic(s): Role of speech tx and rationale for evaluation Method of Education: Verbal discussion and explanation provided to pt: Pt will require additional education Additional Recommendations: n/a Evaluations Results: Speech-Language Skills AUDITORY COMPREHENSION: Yes/No Questions Impaired Body Part Identification Impaired Right/Left Discrimination: Impaired Commands Simple Impaired Complex Did not test Comprehension Words Impaired Sentences Impaired Paragraphs Did not test Conversation Impaired VERBAL EXPRESSION: Naming Responsive Impaired Confrontation Impaired Repetition Impaired Automatic Speech Impaired Spontaneous Utterances Words Impaired Sentences Did not test Conversation Impaired Paraphasias/Jargon did not test Gestures/Augmentative Impaired Perseveration present (gestural yes responses) READING COMPREHENSION: Oral: Words Impaired Sentences Did not test Paragraphs Did not test Comprehension Words Impaired Sentences Did not test Paragraphs Did not test WRITTEN EXPRESSION: Biographical Information Impaired Copying Did not test Spontaneous: Words Impaired Sentences Did not test Narrative Did not test SPEECH MECHANISM: Oral Motor Impaired Speech Intelligibility Did not test Dysarthria did not test Apraxia Oral not present Verbal did not test LEVEL OF ALERTNESS: alert/focused COGNITIVE-COMMUNICATION SKILLS: ATTENTION/CONCENTRATION: Sustained (1:1 environment) Within normal limits Selective with distractions Did not test Alternating between tasks Did not test Divided between tasks Did not test MEMORY: Immediate Memory Did not test Short Term Memory: Daily Events/Activities Did not test Novel Information Did not test Delayed memory Did not test Cell Inspector Memory Did not test PROBLEM SOLVING/REASONING: Verbal Problem Solving Did not test Functional Problem Solving: Simple Did not test Complex Did not test Functional Math: Math Calculations Did not test Time Management Did not test Money Management Did not test Abstract Reasoning Did not test Deficit Reasoning Did not test Safety Awareness Did not test VISUAL PERCEPTION: Spatial Organization Impaired ?R inattention Distribution of Attention Did not test Written Organization Impaired ORIENTATION: Person Within normal limits Place Impaired Time Impaired Situation Did not test EXECUTIVE FUNCTIONS: Initiation Impaired Organization Did not test Planning/Decision Making Did not test Self Monitoring Did not test Self Correction Did not test BEHAVIORAL OBSERVATIONS NOTED: flat affect * Soraya Turner SLP - 03/31/2024 9:40 AM ESTAssociated Order(s): ADULT SPEECH THERAPY CONSULT IP (ACUTE CARE REHAB) CLINICAL BEDSIDE SWALLOW EVALUATION - Speech-Language Pathology [address] [address] Name: Verena Field Location: [address] Date: 03/31/2024 Time: 9:40 AM Patient Status: Inpatient Insurance: Payor: [facility] [employer] / Plan: [facility] [employer] PREFERRED ENHANCED MP-DD / Product Type: *No Product type* / GENERAL INFORMATION: Admission Date: 03/30/2024 Referring Physician: Susanne Porter MD Pertinent Medical History: Per Epic H&P "Verena Field is a 74 year old female w/ PMHX Paroxysmal Afib (Xarelto, Flecanide 100 BID and Lopressor 50 BID) Non obstructive CAD RBBB Recurrent PE (last 2016 on Xarelto) Obesity HTN (Triamterne HXTZ 75-50) HLD (crestor 5, Zetia - statin intolerance) T2DM (Metformin, last A1c 7.2) H/o skin cancer: melanoma in situ, right upper back 2022 Hx BCC L midback 04/2017, BCC L clavicle 2008 Hx [place] Hx breast (s/p double mastectomy) and uterine CA (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 LKW was 03/28 at 2200. Found to have. L gaze, R weakness, and aphasia. OSH NIH 24. No TNK as patient is on xarelto. CTH/CTA with M1 occlusion. Taken to angio directly by neurosurgery. Patient returned from thrombectomy and is unable to speak." Past Medical History: Diagnosis Date Atrial fibrillation (HCC) CA IN SITU BREAST (left) 03/15/2003 Endometrial cancer (HCC) 02/01/2013 HTN, goal below 140/90 MALIGN NEOPL BREAST NOS Malignant neoplasm of female breast (HCC) 07/04/1995 bilateral DCIS with involved margins Multiple pulmonary nodules NONE 02/15/2005 left stereo bx at [facility] by Dr. Watt Osteomyelitis of left foot (HCC) 07/30/2022 Pulmonary embolus (HCC) 07/02/2005 Recurrent pulmonary embolism (HCC) Past Surgical History: Procedure Laterality Date BREAST RECONSTRUCTION W/TRAM 01/29/01 right breast COMPLETE REMOVAL OF BREAST, SIMPLE 06/07/05 left simple mas. with implant at [facility] by DRAINAGE OF ABDOMINAL ABSCESS 12/17/2010 DRAINAGE OF ABDOMEN ABSCESS OPEN performed by ELENO BLEDSOE at OR [facility] [place] INCISION OF BREAST LESION, DEEP 07/04/95 right breast re-excision of involved margins NIPPLE/AREOLA RECONSTRUCTION 01/29/01 fir stage (Dr. Abdalla) PARTIAL AMPUTATION OF TOE Left 07/31/2022 AMPUTATION TOE INTERPHALANGEAL JOINT performed by Yonis Henriquez DO at [facility] PARTIAL MASTECTOMY 07/04/95 left breast segmental mastectomy PROSTHETIC MAT/MESH, ABD, NECROTIC, REMOVAL 12/17/2010 REMOVAL MESH ABDOMINAL WALL NECROTIZING SOFT TISSUE INFECTION performed by ELENO BLEDSOE at OR [facility] [place] RADIATION TREATMENT DELIVERY 08/10to09/18/95 left breast 5,040 cGy REMOVAL OF OVARY(S) age 14 Oopherectomy,Uni, REMOVE TONSILS & ADENOIDS, UNDER 12 age 3 Tonsillectomy/Adenoids,<10 Y/O REPAIR INITIAL INCISIONAL OR VENTRAL HERNIA; REDUCIBLE 12/17/2010 REPAIR INITIAL INCISIONAL /VENTRAL HERNIA REDUCIBLE performed by ELENO BLEDSOE at OR [facility] [place] SUCTION REMOVE FAT TISSUE, TRUNK 01/29/01 right breast THIGH OR KNEE SURGERY NEC 1997, 1998 Knee/Leg Other Procedures Unlisted TOTAL ABD HYSTERECTOMY W/WO REMOVAL OF TUBE(S) 12/17/2010 TOTAL ABDOMINAL HYSTERECTOMY WITH OR WITHOUT TUBES AND OVARIES performed by ELENO BLEDSOE at OR [facility] [place] Imaging: CT HEAD/BRAIN WO CONTRAST 03/31/24 "IMPRESSION: Evolving large early subacute infarction involving the left CORINA and MCA territories without significantly increased mass effect or evidence of hemorrhagic transformation. No other areas suspicious for acute infarction identified. Chronic microvascular white matter disease and parenchymal volume loss. Additional findings as above." Current Diet/Dysphagia History: Pt currently NPO. Pt failed nursing dysphagia screening 03/31/24 d/t reduced Cognitive-Communication:Pt remained awake and alert. Pt requires mod-max assist to follow commands.Pt with minimal attempts to communicate, observed to move mouth to repeat after clinician; however,no verbal output. Barriers to Learning: Medical Status Hearing Acuity: Deferred Best Learning Method: Auditory Pain: No complaints of pain ORAL MECHANISM EXAM: Facial Symmetry Reduced on L Labial Function Unable to assess d/t limited ability to follow commands Lingual Function WFL Velar Function Unable to assess d/t limited ability to follow commands Dentition: Natural PROTECTIVE MECHANISMS: Volitional Swallow Did not test Volitional Throat Clearing Did not test Volitional Cough Did not test Vocal Quality Unable to assess d/t no verbal output Tracheostomy Tube: Not Present Ventilator Status: Not Applicable SWALLOWING FUNCTION: Pt was presented with trials of thin liquid via cup and straw, puree solids, soft and bite sized solids, and regular solids. ORAL PREPARATION PHASE: Puree (IDDSI Level 4): WFL Soft and Bite-Sized (IDDSI Level 6): WFL Regular (IDDSI Level 7): WFL Thin Liquid (IDDSI Level 0): WFL ORAL PHASE: Puree (IDDSI Level 4): WFL Soft and Bite-Sized (IDDSI Level 6): WFL Regular (IDDSI Level 7): WFL Thin Liquid (IDDSI Level 0): WFL PHARYNGEAL PHASE Puree (IDDSI Level 4): WFL Soft and Bite-Sized (IDDSI Level 6): WFL Regular (IDDSI Level 7): WFL Thin Liquid (IDDSI Level 0): WFL RECOMMENDATIONS/PLAN: Videofluoroscopy: Not indicated Diet Level: Regular Liquid Level: Thin Presentation of Medication: As tolerated Positioning: Seated with 90 degree hip flexion Level of Supervision: Total assist Use of Straws: allowed Compensatory Techniques to be Utilized During PO Intake: Small Bites/Sips, Alternate Solids & Liquids, Check for Pocketing, and Slow Rate of Intake Compensatory Strategies Utilized: as above Additional findings: N/A ANTICIPATED FREQUENCY (ON EVAL): Not indicated DIAGNOSIS/IMPRESSIONS: Diagnosis/Impressions: Oral phase WFL. Pharyngeal phase dysphagia not suspected 2/2 absence of overt s/sx of aspiration and/or distress. Pt observed to have productive cough prior to PO intake. No coughing with PO intake. Rehab Potential: N/A TREATMENT PLAN: Swallowing Treatment: Not Indicated Treatment Goals: N/A Additional Recommendations: If s/sx of aspiration and/or distress are appreciated, please downgradeas nsg safety measure, and re-consult [facility] services. The above information was discussed with the patient/family. Yes The patient/family was in Agreement A * Ricardo Birch MD - 03/31/2024 9:33 AM ESTAssociated Order(s): REHAB CONSULT IP CONSULT - Physical Medicine & Rehabilitation [address] [id number] Name: Verena Field Location: [facility] [place] A545/A Date: 03/31/2024 Time: 9:33 AM Consulting Service: Critical Care Reason for Consultation: :disposition Admission Date: 03/30/2024 Attending Physician/Provider: Art Ybarra MD Subjective HPI: Verena Field is a(n) 74 year old female with PMHx Afib on Xarelto, recurrent PE, CAD, RBBB, HTN,T2DM, breast cancer s/p mastectomy, osteomyelitis of L foot s/p toe amputation in 2022 who presented to the ED for L gaze, R sided weakness, and aphasia witnessed by family on 03/29. NIHSS was 24 and CTA showed L M1 occlusion. Mechanical thrombectomy for L M1 occlusion was done yesterday and admitted to ICU. TICI 3. Patient was seen and evaluated by rehab. Patient was sitting in the chair comfortably. Cleared for thin/regular diet. Patient was not able to verbal. Showed minimal understanding with questions and informations. Pending PT/OT/ST evaluation. PREVIOUS FUNCTIONAL STATUS: Home Set-up and Support System: Assistive Devices Used: Recent Physical Therapy Assessment: Recent Occupational Therapy Assessments: CURRENT LEVEL OF FUNCTION: Bed Mobility: Transfer: Ambulation: Review of Systems: as per HPI Past Medical History: Diagnosis Date Atrial fibrillation (HCC) CA IN SITU BREAST (left) 03/15/2003 Endometrial cancer (HCC) 02/01/2013 HTN, goal below 140/90 MALIGN NEOPL BREAST NOS Malignant neoplasm of female breast (HCC) 07/04/1995 bilateral DCIS with involved margins Multiple pulmonary nodules NONE 02/15/2005 left stereo bx at [facility] by Dr. Watt Osteomyelitis of left foot (HCC) 07/30/2022 Pulmonary embolus (HCC) 07/02/2005 Recurrent pulmonary embolism (HCC) Past Surgical History: Procedure Laterality Date BREAST RECONSTRUCTION W/TRAM 01/29/01 right breast COMPLETE REMOVAL OF BREAST, SIMPLE 06/07/05 left simple mas. with implant at [facility] by DRAINAGE OF ABDOMINAL ABSCESS 12/17/2010 DRAINAGE OF ABDOMEN ABSCESS OPEN performed by ELENO BLEDSOE at [facility] INCISION OF BREAST LESION, DEEP 07/04/95 right breast re-excision of involved margins NIPPLE/AREOLA RECONSTRUCTION 01/29/01 [facility] stage (Dr. Abdalla) PARTIAL AMPUTATION OF TOE Left 07/31/2022 AMPUTATION TOE INTERPHALANGEAL JOINT performed by Yonis Henriquez DO at [facility] PARTIAL MASTECTOMY 07/04/95 left breast segmental mastectomy PROSTHETIC MAT/MESH, ABD, NECROTIC, REMOVAL 12/17/2010 REMOVAL MESH ABDOMINAL WALL NECROTIZING SOFT TISSUE INFECTION performed by ELENO BLEDSOE at OR [facility] [place] RADIATION TREATMENT DELIVERY 08/10to09/18/95 left breast 5,040 cGy REMOVAL OF OVARY(S) age 14 Oopherectomy,Uni, REMOVE TONSILS & ADENOIDS, UNDER 12 age 3 Tonsillectomy/Adenoids,<10 Y/O REPAIR INITIAL INCISIONAL OR VENTRAL HERNIA; REDUCIBLE 12/17/2010 REPAIR INITIAL INCISIONAL /VENTRAL HERNIA REDUCIBLE performed by ELENO BLEDSOE at OR [facility] [place] SUCTION REMOVE FAT TISSUE, TRUNK 01/29/01 right breast THIGH OR KNEE SURGERY NEC 1997, 1998 Knee/Leg Other Procedures Unlisted TOTAL ABD HYSTERECTOMY W/WO REMOVAL OF TUBE(S) 12/17/2010 TOTAL ABDOMINAL HYSTERECTOMY WITH OR WITHOUT TUBES AND OVARIES performed by ELENO BLEDSOE at OR [facility] [place] Social History Tobacco Use Smoking status: Never Smokeless tobacco: Never Vaping Use Vaping status: Never Used Substance Use Topics Alcohol use: Yes Comment: rarely Drug use: No Family History Problem Relation Name Age of Onset Cancer Father prostate ca Diabetes Mother Heart Disorder Mother Stroke Mother Cancer Grandfather (Paternal) Heart Disorder Grandfather (Maternal) Heart Disorder Grandmother (Maternal) Stroke Grandmother (Maternal) Review of patient's allergies indicates: Allergen Reactions Levofloxacin Other (Please comment) and Rash Prolonged QT, interfered with Fleconide Current Facility-Administered Medications Medication Dose Route Frequency Provider Acetaminophen (Tylenol) supp 650 mg 650 mg Rectal Q4H PRN Mohammad, Susanne, MD aspirin supp 75 mg 75 mg Rectal Daily(AM) Susanne Porter MD chlorHEXIDINE (Periogard) 0.12 % oral rinse 15 mL 15 mL Oral mucosal membrane BID (799,1999) Susanne Porter MD dextrose 50% inj 25 mL 25 mL IV Push PRN Georgette Dick MD dextrose 50% inj 50 mL 50 mL IV Push PRN Georgette Dick MD Ezetimibe (Zetia) tab 10 mg 10 mg Oral Daily(AM) Susanne Porter MD glucagon (Glucagen) inj 1 mg 1 mg Intramuscular PRN Georgette Dick MD Glucose (Glutose 15) 40 % gel 15 g of glucose 15 g of glucose Oral PRN Georgette Dick MD Glucose (Glutose 15) 40 % gel 30 g of glucose 30 g of glucose Oral PRN Georgette Dick MD glucose chew tab 16 g 16 g Oral PRN Georgette Dick MD insulin aspart (NovoLOG) inj Subcutaneous Q6H Georgette Dick MD Oral Hygiene: Mouth Swab with dentifrice Oral Q4H Limited (00;04;12;16) Susanne Porter MD Objective PHYSICAL EXAM: BP: 157 mmHg/64 mmHg (03/31/24699) Pulse: 68 (03/31/24699) Resp: 21 (03/31/24699) Temp: 37 C (03/31/24799) Temp Summary: Temp Min: 36.2 C (97.2 F) Max: 37.2 C (99 F) SpO2: 96 % (03/31/24699) O2 flow rate: Supplemental O2 Delivery: Room Air, None (03/31/24699) Vital Signs Last 24 Hours: BP Min: 141/59 Max: 176/69 Pulse Av.6 Min: 63 Max: 77 Most Recent Temperature Av.7 C Min: 36.22 C Max: 37.22 C Resp Av.5 Min: 18 Max: 27 General: NAD; resting comfortably Respiratory: non labored breathing on room air Skin: no erythema, surgical site present : Barry catheter present Psychiatric: appropriate mood and affect NEURO/MSK: Mental Status & Orientation: awake, alert, not oriented to questions Memory: not able to speak Attention: diminished Knowledge: doesn't knows current and prior president Language: aphasia Speech: not speaking Cranial Nerves: CN 2 - no visual defect on confrontation and pupils round, equal, reactive to light CN 3, 4, 6 - L gaze preference CN 5 - facial sensation intact V1-3 CN 7 - R facial droop CN 8 - intact hearing CN 9, 10 - palate symmetric, uvula midline, no deviation CN 11 - shoulder shrug full strength CN 12 - tongue protrudes midline Motor: RIGHT arm Flaccid LEFT 3/5 Shoulder Abduction I 4/5 Elbow Flexion | 4/5 Elbow Extension | 4/5 Wrist Extension | 5/5 Finger Flexion | 5/5 Finger Abduction RIGHT leg Flaccid LEFT 3/5 Hip Flexion | 3/5 Knee Extension | 4/5 Ankle Dorsiflexion | 4/5 EHL | 5/5 Ankle Plantar Flexion DATA REVIEW: Hemoglobin A1c Results: Lab Results Component Value Date/Time HEMOGLOBIN A1C - [facility] 7.2 (H) 03/30/2024 10:41 AM HEMOGLOBIN A1C - [facility] 7.6 (H) 08/11/2014 04:11 PM HEMOGLOBIN A1C - [facility] 5.5 08/25/2009 03:32 PM HEMOGLOBIN A1C - [facility] 5.6 01/08/2008 09:08 AM Recent Results (from the past 24 hours) COMPREHENSIVE METABOLIC PANEL Collection Time: 03/30/24 10:07 AM Result Value Ref Range BUN 16 6 - 20 mg/dL CREATININE 0.5 0.5 - 1.0 mg/dL EGFR >90 >=60 mL/min SODIUM 139 135 - 146 mmol/L POTASSIUM 3.9 3.5 - 5.1 mmol/L CHLORIDE 104 98 - 107 mmol/L CO2 17 (L) 22 - 32 mmol/L ANION GAP 18 (H) 7 - 15 mmol/L GLUCOSE 246 (H) 70 - 120 mg/dL Albumin 3.1 (L) 3.8 - 5.0 g/dL AST 16 10 - 35 U/L Alkaline Phosphatase 90 35 - 130 U/L Bilirubin, Total 0.3 <=1.2 mg/dL CALCIUM 7.7 (L) 8.4 - 10.2 mg/dL Protein 5.7 (L) 6.0 - 8.3 g/dL ALT 12 10 - 35 U/L CBC Collection Time: 03/30/24 10:07 AM Result Value Ref Range WBC 10.26 4.00 - 10.80 K/uL RBC 4.15 3.85 - 5.15 M/uL HGB 13.1 12.0 - 15.3 g/dL HCT 39.5 36.0 - 45.2 % MCV 95.2 81.5 - 97.5 fL MCH 31.6 27.0 - 34.0 pg MCHC 33.2 32.0 - 36.0 g/dL RDW 12.6 11.5 - 15.5 % PLT 267 140 - 400 K/uL MPV 11.3 6.6 - 11.1 fL nRBCs 0 <=0 /100 WBCs MAGNESIUM Collection Time: 03/30/24 10:07 AM Result Value Ref Range Magnesium 2.0 1.5 - 2.6 mg/dL PHOSPHORUS Collection Time: 03/30/24 10:07 AM Result Value Ref Range Phosphorus 2.8 2.5 - 4.8 mg/dL APTT Collection Time: 03/30/24 10:41 AM Result Value Ref Range aPTT 25 21 - 38 seconds PT INR Collection Time: 03/30/24 10:41 AM Result Value Ref Range Prothrombin Time 13.3 11.6 - 15.2 seconds INR 1.0 0.8 - 1.2 HEMOGLOBIN A1C Collection Time: 03/30/24 10:41 AM Result Value Ref Range Hemoglobin A1C 7.2 (H) 4.0 - 5.6 % Estimated Average Glucose 160 (H) <126 mg/dL GLUCOSE METER, POINT OF CARE Collection Time: 03/30/24 11:59 AM Result Value Ref Range GLUCOSE - POCT 224 (H) 70 - 120 mg/dL ECHO, COMPLETE (2D), TRANS-THORACIC Collection Time: 03/30/24 2:10 PM Result Value Ref Range LEFT VENTRICULAR EJECTION FRACTION 60 % GLUCOSE METER, POINT OF CARE Collection Time: 03/30/24 5:58 PM Result Value Ref Range GLUCOSE - POCT 131 (H) 70 - 120 mg/dL MRSA SCREEN, PCR Collection Time: 03/30/24 7:50 PM Result Value Ref Range MRSA PCR Result Negative Negative GLUCOSE METER, POINT OF CARE Collection Time: 03/30/24 10:59 PM Result Value Ref Range GLUCOSE - POCT 150 (H) 70 - 120 mg/dL CBC Collection Time: 03/31/24 4:24 AM Result Value Ref Range WBC 8.81 4.00 - 10.80 K/uL RBC 3.91 3.85 - 5.15 M/uL HGB 12.3 12.0 - 15.3 g/dL HCT 37.4 36.0 - 45.2 % MCV 95.7 81.5 - 97.5 fL MCH 31.5 27.0 - 34.0 pg MCHC 32.9 32.0 - 36.0 g/dL RDW 12.7 11.5 - 15.5 % PLT 258 140 - 400 K/uL MPV 11.5 6.6 - 11.1 fL nRBCs 0 <=0 /100 WBCs BASIC METABOLIC PANEL Collection Time: 03/31/24 4:24 AM Result Value Ref Range BUN 11 6 - 20 mg/dL CREATININE 0.6 0.5 - 1.0 mg/dL EGFR >90 >=60 mL/min SODIUM 142 135 - 146 mmol/L POTASSIUM 3.7 3.5 - 5.1 mmol/L CHLORIDE 106 98 - 107 mmol/L CO2 23 22 - 32 mmol/L ANION GAP 13 7 - 15 mmol/L GLUCOSE 187 (H) 70 - 120 mg/dL CALCIUM 7.9 (L) 8.4 - 10.2 mg/dL LIPID PANEL WITH DIRECT LDL IF TG IS HIGH Collection Time: 03/31/24 4:24 AM Result Value Ref Range Triglycerides 235 (H) <=174 mg/dL Cholesterol 191 <200 mg/dL HDL Cholesterol 29 (L) >49 mg/dL Non-HDL Cholesterol 162 (H) <=159 mg/dL LDL Cholesterol 115 <=129 mg/dL GLUCOSE METER, POINT OF CARE Collection Time: 03/31/24 5:15 AM Result Value Ref Range GLUCOSE - POCT 188 (H) 70 - 120 mg/dL LABS: CBC Lab Results Component Value Date/Time WBC 8.81 03/31/2024 04:24 AM WBC 12.66 (H) 08/11/2014 04:11 PM RBC 3.91 03/31/2024 04:24 AM RBC 5.03 08/11/2014 04:11 PM HGB 12.3 03/31/2024 04:24 AM HGB 14.5 10/01/2022 12:00 AM HGB 16.1 (H) 08/11/2014 04:11 PM HCT 37.4 03/31/2024 04:24 AM HCT 47.5 (H) 08/11/2014 04:11 PM MCV 95.7 03/31/2024 04:24 AM MCV 94.4 08/11/2014 04:11 PM MCH 31.5 03/31/2024 04:24 AM MCH 32.0 08/11/2014 04:11 PM MCHC 32.9 03/31/2024 04:24 AM MCHC 33.9 08/11/2014 04:11 PM RDW 12.7 03/31/2024 04:24 AM RDW 13.0 08/11/2014 04:11 PM PLT 258 03/31/2024 04:24 AM PLT 398 08/11/2014 04:11 PM MPV 11.5 03/31/2024 04:24 AM NEUTS 72.8 (H) 08/24/2022 04:49 AM NEUTS 9.90 (H) 08/24/2022 04:49 AM LYMP 29 08/11/2014 04:11 PM MONOS 8.7 08/24/2022 04:49 AM MONOS 1.20 (H) 08/24/2022 04:49 AM MONOS 8 08/11/2014 04:11 PM EOS 0.9 08/24/2022 04:49 AM EOS 1 08/11/2014 04:11 PM BASOS 0.10 08/24/2022 04:49 AM BASOS 0.5 08/24/2022 04:49 AM BASOS 1 08/11/2014 04:11 PM LABS: BMP Lab Results Component Value Date/Time BUN 11 03/31/2024 04:24 AM BUN 24 (H) 08/11/2014 04:11 PM CREAT 0.6 03/31/2024 04:24 AM CREAT 0.83 10/01/2022 12:00 AM CREAT 0.8 08/11/2014 04:11 PM GFRESTIMATED >60.0 08/11/2014 04:11 PM NA 142 03/31/2024 04:24 AM NA 141 08/11/2014 04:11 PM POTASSIUM 3.7 03/31/2024 04:24 AM POTASSIUM 4.2 10/01/2022 12:00 AM POTASSIUM 4.5 08/11/2014 04:11 PM CL 106 03/31/2024 04:24 AM CL 99 08/11/2014 04:11 PM CO2 23 03/31/2024 04:24 AM CO2 26 08/11/2014 04:11 PM AGP 13 03/31/2024 04:24 AM AGP 16 (H) 08/11/2014 04:11 PM CA 7.9 (L) 03/31/2024 04:24 AM CA 9.9 08/11/2014 04:11 PM IMAGING STUDIES: CT HEAD/BRAIN WO CONTRAST Narrative: EXAM: CT HEAD WITHOUT CONTRAST - 03/31/2024 8:27 am HISTORY: Post mechanical thrombectomy on 03/30 TECHNIQUE: CT of the head was performed without intravenous contrast. Multiplanar reformats were generated. COMPARISON: CT head 03/30/2024. CTA neck 03/30/2024. FINDINGS: Large evolving left MCA territory infarction status post mechanical thrombectomy. No significant associated mass effect or evidence of hemorrhagic transformation. Patchy areas of low attenuation throughout the deep white matter which are nonspecific but likely related to chronic microvascular disease. Diffuse parenchymal volume loss with proportionate ventricular and sulcal prominence. No hydrocephalus. No extra-axial fluid collections. Intracranial atherosclerotic calcifications. Minimal mucosal thickening of the ethmoidal sinuses. The mastoid air cells are predominantly clear.Orbits appear unremarkable. Hyperostosis frontalis with otherwise intact calvarium. Impression: IMPRESSION: This impression is a preliminary interpretation by the resident and is subject to changes followingreview by an attending radiologist. Be sure to review a final report to be signed by a staff radiologist for any discrepancies with this preliminary interpretation. Large evolving left MCA territory infarction status post mechanical thrombectomy. No significant associated mass effect or evidence of hemorrhagic transformation. Chronic microvascular white matter disease and parenchymal volume loss. ASSESSMENT: Active Problems: Acute ischemic left MCA stroke (HCC) (POA: Unknown) Right hemiparesis (HCC) (POA: Unknown) Mixed aphasia (POA: Unknown) POA = Present On Admission Verena Field is a(n) 74 year old female PMHx Afib on Xarelto, recurrent PE, CAD, RBBB, HTN, T2DM, breast cancer s/p mastectomy, osteomyelitis of L foot s/p toe amputation in 2022 who presents withmobility and ADL deficits secondary to L MCA stroke . PLAN: Disposition Recommendation: IRF vs SNF, pending PT/OT Physiatry-Focused Considerations(s): Rehabilitation Diagnosis: Stroke Pertinent Medical Post-Acute Care Information: L MCA s/p thrombectomy with TICI 3 Ambulatory Dysfunction: not tested Speech/Cognition/Swallow: regular/thin Skin: prevent pressure injury Bowel: Miralax/Colace prn Bladder: barry cath. Pain: Tylenol prn Sleep: Melatonin prn PM&R will continue to follow. Please reach out if patient's functional or medical status changes. Thank you for consulting Physical Medicine and Rehabilitation (PM&R / Physiatry). We appreciatethe opportunity to assist in the care of your patient. Please contact service via [employer] Role for further questions or concerns: PMRRESIDENTCONSULTS Patient seen, discussed, and examined with Dr. Troncoso. Ricardo Birch MD PGY-3, PM&R Resident Physician 03/31/2024 Cosigned by David Troncoso MD at 04/01/2024 9:20 AM EST Associated attestation - David Troncoso MD - 04/01/2024 9:20 AM EST I saw and evaluated the patient 03/31/2024. I have reviewed the resident/fellow physician note and agree. * Lyly Cash, PT - 03/31/2024 8:41 AM ESTAssociated Order(s): ADULT PHYSICAL THERAPY CONSULT IP GENERAL EVALUATION - Physical Therapy [address] [phone] Name: Verena Field Location: [facility] [place] A545/A Date: 03/31/2024 Time: 2:29 PM Verena Field is a/an 74 year old female. Patient Status: Inpatient Insurance: Payor: [facility] Plan: [facility] PREFERRED ENHANCED MP-DD Product Type: *No Product type* Patient Seen: at bedside, nursing cleared patient for therapy Patient Identified By: Name, ID Band and Date Diagnosis: stroke (03/31/24840) Status of treatment: Evaluation completed (03/31/24840) Orders: PT evaluation and treatment (03/31/24840) Weight Bearing Status: Weight bearing as tolerated (03/31/24840) Precautions: Barry (03/31/24840) Total Treatment Time--free text: 28 (03/31/24840) Past Medical History: Past Medical History: Diagnosis Date Atrial fibrillation (HCC) CA IN SITU BREAST (left) 03/15/2003 Endometrial cancer (HCC) 02/01/2013 HTN, goal below 140/90 MALIGN NEOPL BREAST NOS Malignant neoplasm of female breast (HCC) 07/04/1995 bilateral DCIS with involved margins Multiple pulmonary nodules NONE 02/15/2005 left stereo bx at [facility] by Dr. Watt Osteomyelitis of left foot (HCC) 07/30/2022 Pulmonary embolus (HCC) 07/02/2005 Recurrent pulmonary embolism (HCC) Past Surgical History: Past Surgical History: Procedure Laterality Date BREAST RECONSTRUCTION W/TRAM 01/29/01 right breast CAROTID (INTERNAL) ARTERY CATHETHER PLACEMENT N/A 03/30/2024 CATHETER PLACEMENT INTERNAL CAROTID ARTERY performed by Yannick Monteiro MD, PhD at OR [facility] [place] COMPLETE REMOVAL OF BREAST, SIMPLE 06/07/05 left simple mas. with implant at [facility] by DRAINAGE OF ABDOMINAL ABSCESS 12/17/2010 DRAINAGE OF ABDOMEN ABSCESS OPEN performed by ELENO BLEDSOE at [facility] INCISION OF BREAST LESION, DEEP 07/04/95 right breast re-excision of involved margins NIPPLE/AREOLA RECONSTRUCTION 01/29/01 [facility] stage (Dr. Abdalla) PARTIAL AMPUTATION OF TOE Left 07/31/2022 AMPUTATION TOE INTERPHALANGEAL JOINT performed by Yonis Henriquez DO at OR [facility] PARTIAL MASTECTOMY 07/04/95 left breast segmental mastectomy PROSTHETIC MAT/MESH, ABD, NECROTIC, REMOVAL 12/17/2010 REMOVAL MESH ABDOMINAL WALL NECROTIZING SOFT TISSUE INFECTION performed by ELENO BLEDSOE at OR [facility] [place] RADIATION TREATMENT DELIVERY 08/10to09/18/95 left breast 5,040 cGy REMOVAL OF OVARY(S) age 14 Oopherectomy,Uni, REMOVE TONSILS & ADENOIDS, UNDER 12 age 3 Tonsillectomy/Adenoids,<10 Y/O REPAIR INITIAL INCISIONAL OR VENTRAL HERNIA; REDUCIBLE 12/17/2010 REPAIR INITIAL INCISIONAL /VENTRAL HERNIA REDUCIBLE performed by ELENO BLEDSOE at OR [facility] [place] SUCTION REMOVE FAT TISSUE, TRUNK 01/29/01 right breast THIGH OR KNEE SURGERY NEC 1997, 1998 Knee/Leg Other Procedures Unlisted TOTAL ABD HYSTERECTOMY W/WO REMOVAL OF TUBE(S) 12/17/2010 TOTAL ABDOMINAL HYSTERECTOMY WITH OR WITHOUT TUBES AND OVARIES performed by ELENO BLEDSOE at OR [facility] [place] VERTEBRAL ARTERY CATHETER PLACEMENT N/A 03/30/2024 CATHETER PLACEMENT VERTEBRAL ARTERY, performed by Yannick Monteiro MD, PhD at OR [facility] [place] Subjective: Pt in bed and able to follow commands to within abilities. Social History/Disposition Lives with: Unable to obtain from patient/family (03/31/24840) Prior Level of Function Reported by: Unable to obtain from patient / family (03/31/24840) Observations Consciousness: Alert (03/31/24840) Orientation: (unable to assess due to non verbal at this time.) (03/31/24840) Psychosocial: Patient cannot communicate basic needs.;Patient cannot converse in a social setting. (03/31/24840) Pain: Nonverbal; unable to express pain, no evidence of pain observed. Range of Motion Range of Motion: WFL (03/31/24840) Strength Assessment Strength Assessment: Deficits noted (03/31/24840) WNL, except: LLE;RLE (03/31/24840) LLE: 4-/5 (03/31/24840) RLE: 1/5 (03/31/24840) P.T. Bed Mobility Supine-Sit: Maximal Assistance (Ax2) (03/31/24840) Transfers Sit-Stand: Maximal Assistance (Ax2) (03/31/24840) Stand-Sit: Maximal Assistance (Ax2) (03/31/24840) W/C-Bed/Mat: Maximal Assistance (Ax2) (03/31/24840) Ambulation: Unable to take steps Balance Sit (Static): Poor (03/31/24840) Sit (Dynamic): Poor (03/31/24840) Stand (Static): Poor (P-) (03/31/24840) Stand (Dynamic): Poor (P-) (03/31/24840) Patient and or Family Goal(s): unable to obtain Patient Education Review of Precautions: Safety (03/31/24840) Safety Awareness: Needs cueing supervision (03/31/24840) Preferred learning method: Combination (03/31/24840) Barriers to learning: Medical Status;Speaking (03/31/24840) Method of Education: Verbalized to patient (03/31/24840) Topic of Education: Safety with mobility and Goals/plan of care Method of Education: Verbal discussion and explanation provided to patient: demonstrated the exercise and or task Treatment Provided: Therapeutic Activities 10 minutes: bed mobility training transfer training Evaluation Moderate Complexity 18 minutes - [id number]: Patient was cooperative during treatment session. Moderate complexity evaluation performed and 1-2 personal factors or comorbidities were identifiedthat will impact plan of care, including cardiac history and history of CVA. Patient presents with limitations in strength, bed mobility, transfers, gait, and balance, which will impact plan of care.These limitations will be addressed by the goals set for this patient. Alarm Status Patient positioned in: Chair (03/31/24840) With: Pressure pad alarm intact and functioning and call el in reach (03/31/24840) Following session patient seated OOB in chair with chair alarm activated. Chair alarm (did not havecord to plug into call el system and/or room did not have port to plug cord into call el system). Patient's nurse July was made aware. Treatment Status: Treatment at bedside (03/31/24840) Goals: Demonstrate Bed Mobility with: Supine to Sit: contact guard Sit to supine: contact guard Demonstrate Transfers with: Sit to stand: contact guard Stand to sit: contact guard Bed to chair: contact guard Demonstrate Ambulation: assistive device: least restrictive device distance in feet: 10 ft level of assistance on level surface: minimal assistance (pt does 75%) Increase Strength of: BLE's to by 1/2 muscle grade Increase Balance: F dynamic standing Time Frame: 10 visits Assessment: Pt presented to the hospital on 03/30 with L M1 occlusion and underwent thrombectomy for same. Pt currently non verbal and unable to communicate prior level of function. Pt was able to follow commands and visually track but notes with L side gaze preference. Pt with 1/5 strength RLE. She was able to complete supine to sit with Max Ax2 and able to sit edge of bed for about 8 minutes with R lean. She was then able to stand and complete a stand pivot transfer bed to chair in 2 increments with Max Ax2. Each time pt stood she was able to tolerated standing for about 30 seconds. She washowever unable to take steps. Feel pt would benefit from PT services in order to increase overall functional mobility as well as activity tolerance. Please consider post-acute care services which mayinclude home health, mcc, outpatient therapy or inpatient rehabilitation. The level of care will be determined in collaboration with patient, family/caregiver and care team members. Deficits requiring P.T. treatment needs: Safety;Mobility;Balance;Weakness;Lower extremity strength (03/31/24840) Equipment Needs: Treatment Plan: Bed mobility training, Transfer training, Gait training, Strengthening exercises: BLE's, and Balance activities Anticipated Frequency (on eval): 3 to 5 times per week (03/31/24840) AM PAC Score with Stairs: 10 A portion of this AM-PAC assessment not scored based on functional assessment due to no assessment of ambulation and elevations; rather clinical decision making utilized based on current findings and/or prior level of function. Please refer to future AM-PAC calculations of functional ability as they become available. * Arian Russell DO - 03/30/2024 9:24 AM ESTAssociated Order(s): NEUROLOGY CONSULT IP CONSULT - Stroke / Vascular Neurology [facility] [place]-[address] [address] Name: Verena Field Location: OR [facility] [place]/OR Date: 03/30/2024 Time: 9:25 AM Date and Time Service was Contacted: Date: 03/30/2024 REQUESTING SERVICE: Critical Care Medicine PRESENTING PROBLEM: stroke like symptoms REASON FOR CONSULT: L M1 occlusion s/p thrombectomy Last Known Well (LKW): Time: 2199 Date: 03/29/2024 HPI: Verena Field is a 74 year old female with stroke risk factors as outlined below, who presented to [facility] with right sided weakness and aphasia. LKW was 2200 last night. NIHSS 24 and CTA found L M1 occlusion so she was sent to [facility] [place] for thrombectomy. She completed the procedure and and is now admitted to the ICU for post thrombectomy care. Ischemic Stroke Risk Factors Hypertension Dyslipidemia Diabetes Atrial Fibrillation / Flutter Hemorrhagic Stroke Risk Factors Hypertension Currently taking antithrombotic medication Stroke Mimic Risk Factors None CREDIT CARD ANALYST Medications Reviewed: yes Recent Antithrombotics: Rivaroxaban (Xarelto) Last Dose Taken: within 48 hours CURRENT MEDICATIONS: Note that completed medications (per the MAR) continue to display for 24 hours. Ordered medicationsto be given in the future also display. Current Facility-Administered Medications Medication Dose Route Frequency Provider Acetaminophen (Tylenol) supp 650 mg 650 mg Rectal Q4H PRN Susanne Porter MD aspirin supp 75 mg 75 mg Rectal Daily(AM) Susanne Porter MD chlorHEXIDINE (Periogard) 0.12 % oral rinse 15 mL 15 mL Oral mucosal membrane BID (799,1999) Susanne Porter MD dextrose 50% inj 25 mL 25 mL IV Push PRN Georgette Dick MD dextrose 50% inj 50 mL 50 mL IV Push PRN Georgette Dick MD glucagon (Glucagen) inj 1 mg 1 mg Intramuscular PRN Georgette Dick MD Glucose (Glutose 15) 40 % gel 15 g of glucose 15 g of glucose Oral PRN Georgette Dick MD Glucose (Glutose 15) 40 % gel 30 g of glucose 30 g of glucose Oral PRN Georgette Dick MD glucose chew tab 16 g 16 g Oral PRN Georgette Dick MD insulin aspart (NovoLOG) inj Subcutaneous Q6H Georgette Dick MD Oral Hygiene: Mouth Swab with dentifrice Oral Q4H Limited (00;04;12;16) Susanne Porter MD Facility-Administered Medications Ordered in Other Encounters Medication Dose Route Frequency Provider perflutren lipid microsphere inj SUSP 1.956 mg 1.956 mg Intravenous Once PRN Susanne Porter MD ALLERGIES: Levofloxacin PAST MEDICAL HISTORY: Past Medical History: Diagnosis Date Atrial fibrillation (HCC) CA IN SITU BREAST (left) 03/15/2003 Endometrial cancer (HCC) 02/01/2013 HTN, goal below 140/90 MALIGN NEOPL BREAST NOS Malignant neoplasm of female breast (HCC) 07/04/1995 bilateral DCIS with involved margins Multiple pulmonary nodules NONE 02/15/2005 left stereo bx at [facility] by Dr. Watt Osteomyelitis of left foot (HCC) 07/30/2022 Pulmonary embolus (HCC) 07/02/2005 Recurrent pulmonary embolism (HCC) PAST SURGICAL HISTORY: Past Surgical History: Procedure Laterality Date BREAST RECONSTRUCTION W/TRAM 01/29/01 right breast COMPLETE REMOVAL OF BREAST, SIMPLE 06/07/05 left simple mas. with implant at [facility] by DRAINAGE OF ABDOMINAL ABSCESS 12/17/2010 DRAINAGE OF ABDOMEN ABSCESS OPEN performed by ELENO BLEDSOE at [facility] INCISION OF BREAST LESION, DEEP 07/04/95 right breast re-excision of involved margins NIPPLE/AREOLA RECONSTRUCTION 01/29/01 fir stage (Dr. Abdalla) PARTIAL AMPUTATION OF TOE Left 07/31/2022 AMPUTATION TOE INTERPHALANGEAL JOINT performed by Yonis Henriquez DO at [facility] PARTIAL MASTECTOMY 07/04/95 left breast segmental mastectomy PROSTHETIC MAT/MESH, ABD, NECROTIC, REMOVAL 12/17/2010 REMOVAL MESH ABDOMINAL WALL NECROTIZING SOFT TISSUE INFECTION performed by ELENO BLEDSOE at OR [facility] [place] RADIATION TREATMENT DELIVERY 08/10to09/18/95 left breast 5,040 cGy REMOVAL OF OVARY(S) age 14 Oopherectomy,Uni, REMOVE TONSILS & ADENOIDS, UNDER 10 age 3 Tonsillectomy/Adenoids,<10 Y/O REPAIR INITIAL INCISIONAL OR VENTRAL HERNIA; REDUCIBLE 12/17/2010 REPAIR INITIAL INCISIONAL /VENTRAL HERNIA REDUCIBLE performed by ELENO BLEDSOE at OR [facility] [place] SUCTION REMOVE FAT TISSUE, TRUNK 01/29/01 right breast THIGH OR KNEE SURGERY NEC 1997, 1998 Knee/Leg Other Procedures Unlisted TOTAL ABD HYSTERECTOMY W/WO REMOVAL OF TUBE(S) 12/17/2010 TOTAL ABDOMINAL HYSTERECTOMY WITH OR WITHOUT TUBES AND OVARIES performed by ELENO LBEDSOE at OR [facility] [place] FAMILY HISTORY: Family History Problem Relation Name Age of Onset Cancer Father prostate ca Diabetes Mother Heart Disorder Mother Stroke Mother Cancer Grandfather (Paternal) Heart Disorder Grandfather (Maternal) Heart Disorder Grandmother (Maternal) Stroke Grandmother (Maternal) Family History: non contributory SOCIAL HISTORY: Social History Tobacco Use Smoking status: Never Smokeless tobacco: Never Vaping Use Vaping status: Never Used Substance Use Topics Alcohol use: Yes Comment: rarely Drug use: No ROS: All negative other than as noted in HPI PHYSICAL EXAMINATION: Most Recent Vital Signs: BP: 171 mmHg/63 mmHg (03/30/24 1200) Pulse: 69 (03/30/24 1200) Resp: 21 (03/30/24 1200) Temp: 36.61 C (03/30/24 1200) Temp Summary: Temp Min: 36.4 C (97.5 F) Max: 36.6 C (97.9 F) SpO2: 96 % (03/30/24 1200) O2 flow rate: Supplemental O2 Delivery: Room Air, None (03/30/24 1200) Weight: 110.4 kg (243 lb 6.2 oz) (03/30/24 0940) Body mass index is 39.28 kg/m. Vital Signs Last 24 Hours: Systolic BP: Most Recent Systolic BP Av.5 mmHg Min: 156 mmHg Max: 176 mmHg Temperature: Most Recent Temperature Av.5 C Min: 36.39 C Max: 36.61 C Pulse: Pulse Av Min: 67 Max: 71 Respirations: Resp Av.4 Min: 18 Max: 27 SpO2: SpO2 Av.9 % Min: 95 % Max: 97 % General Examination: Constitutional: Appearance no deformities, well groomed, ill appearing, and in bed Head/face, ears, nose, throat: normocephalic, atraumatic Cardiovascular: normal heart sounds, regular rate, regular rhythm, normal pulses, and no carotid bruit Psychiatric: Unable to assess Neurologic Examination: Ophthalmoscopic: deferred Mental Status and Orientation: alert and awake Memory: KAITLIN given aphasia Attention: normal Knowledge:aphasia Language: expressive aphasia and following commands Speech: aphasic Cranial Nerves: CN 2 - no visual defect on confrontation and pupils round, equal, reactive to light CN 3, 4, 6 - extra-ocular movements intact and no nystagmus CN 5 - KAITLIN CN 7 - some facial asymmetry CN 8 - intact hearing CN 9, 10 - did not assess CN 11 - KAITLIN CN 12 - KAITLIN Sensory: withdraws all 4 extremities to pain Coordination: KAITLIN Gait: deferred due to fall risk Muscle Tone: right side flaccid Muscle exam: See below Reflexes: deferred SEVERITY SCORES: National [employer] Stroke Scale: 1A. LOC: 0 1B. Question: 2 1C. Commands: 0 2. Gaze: 0 3. Visual Schofield: 0 4. Facial Palsy: 2 5A. Arm Left: 0 5B. Arm Right: 4 6A. Leg Left: 1 6B. Leg Right: 3 7. Ataxia: untestable 8. Sensory: 0 9. Aphasia: 3 10. Dysarthria: 2 11. Extinction: 0 Total: 17 Baseline / Pre-morbid Level of Function by Modified [place] Scale: 0 - No Sxs; 6 - 3 - Mod disability can walk independently 1 - Sxs no disability 4 - Mod disability walks w/ assistance 2 - Sxs slight disability 5 - Severe disability bedridden Modified Birmingham Scale = 2 - Slight disability. Able to look after own affairs without assistance, but unable to carry out all previous activities. ABCD2 (Age, BP, Clinical Features of TIA, Duration, Diabetes) Score: N/A ASPECTS (CT Scan): 10 ASPECTS (CT Angiogram-Source Images): N/A ASPECTS (MRI Brain Diffusion Images): N/A Intracerebral Hemorrhage (ICH) Score: N/A Ann & Naranjo Score: N/A Mendoza SAH Grade: N/A Personal Review of Neuroimaging, my interpretations are as follows: CTA with complete left M1 occlusion and otherwise no significant atherosclerotic disease LABS: Labs reviewed as indicated below: A1c 7.2 CONSIDERATION OF ACUTE STROKE THERAPIES: IV Thrombolysis Exclusion Criteria: - Last known well beyond the 4.5 hour time period IV Thrombolysis Relative Exclusion Criteria: - None IV Thrombolytic Therapy Considerations and Discussion: Patient is not eligible for IV thrombolytic therapy due to having the exclusion criteria above, andrisk to benefit is considered unfavorable. IV Thrombolysis Administration Recommendation: Do not administer IV thrombolytic agent. See any additional recommendations below for acute stroke care. Reason for delay in thrombolytic initiated > 30 minutes after hospital arrival: None. Endovascular Therapy Exclusion Criteria: - None Endovascular Therapy Relative Exclusion Criteria: - None Endovascular Therapy Assessment: - Patient is a candidate for endovascular acute stroke therapy considering the above exclusion criteria, and risk to benefit is considered favorable. Reason for delay in endovascular therapy: None. IMPRESSION: 74F with history of afib on xarelto, HTN, HLD, DMT2 who presents with L M1 occlusion and is s/p thrombectomy with TICI3. NIHSS improved from 21 to 17 on exam after procedure and she currently has right sided hemiparesis, dense expressive aphasia, and some facial asymmetry. Etiology of stroke likely cardioembolic given lack of significant atherosclerotic disease and patient has history of atrial fibrillation. She has tried atorvastatin in the past but seems to have gotten myopathies so is on zetia. If LDL is not at goal, may need to consider PCSK9 inhibitor. RECOMMENDATIONS / PLAN: Left M1 Occlusion s/p thrombectomy Diagnostics -TTE - to investigate for cardiac causes. -MRI brain without contrast when able -please check Lipid panel, A1C, TSH Monitoring -Neurochecks q1h checks s/p thrombectomy -Please allow for permissive HTN for 24-48 hours by holding blood pressure medications if able, will treat BP if >180/90 -stat head CT with changes in mental status or new neuro symptoms Treatment -Start CREDIT CARD ANALYST zetia when able. If LDL still not at goal, can consider PCSK9 inhibitor -Hold Xarelto until MRI brain. Can start ASA 81mg daily in meantime. Will discuss patient's candidacy for ASPIRE trial. -HOB flat or below 30 if able. -PT/OT/ST/rehab consults -Stroke Education The patient was examined and was discussed with Dr. Cordero. Cosigned by Solitario Cordero MD at 03/30/2024 12:58 PM EST Associated attestation - Solitario Cordero MD - 03/30/2024 12:58 PM EST I saw and evaluated the patient today. I have reviewed the resident/fellow physician note and agree. * Ceasar Chisholm MD - 03/30/2024 8:15 AM EST NEUROLOGICAL SURGERY CONSULT NOTE [facility] [place]-[address] [phone] Name: Verena Field Location: OR [facility] [place]/OR Date: 03/30/2024 Time: 8:16 AM Requesting service: Critical Care Medicine Reason for consult: "L M1 occlusion" HISTORY OF PRESENT ILLNESS: 74 year old female w/ PMH significant for a-fib (on xarelto), obesity, HTN, HLD, and DM2 who presents to the neurosurgery service for DSA and possible mechanical thrombectomy for L M1 occlusion on CTH/CTA. LKW 12/ 10pm. Found by family to have L gaze, R weakness, and aphasia. OSH NIH 24. No TNK as patient is on xarelto. CTH/CTA with above findings. Taken to angio. 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 Watt Osteomyelitis of left foot (HCC) 07/30/2022 Pulmonary embolus (HCC) 07/02/2005 Recurrent pulmonary embolism (HCC) CREDIT CARD ANALYST Meds Prior to Admission medications Medication Sig Last Dose Discont. Doxycycline Monohydrate 100 MG Oral Capsule Take 1 Capsule by mouth in the morning and 1 Capsule before bedtime. Do all this for 14 days. Hydrocortisone 2.5 % External Cream Apply to affected areas on face (alar creases, left lateral nasal root) twice daily as needed metroNIDAZOLE 0.75 % External Cream (MetroCream) Apply to affected areas of the face daily for maintenance, twice daily for flares Flecainide Acetate 100 MG Oral Tablet (Tambocor) Take 1 Tablet by mouth in the morning and 1 Tabletbefore bedtime. Magnesium 200 MG Oral Tablet Chewable Take by mouth. Fluocinonide 0.05 % External Solution Apply to scalp nightly as needed metFORMIN HCl ER 500 MG Oral Tablet Extended Release 24 Hour (Glucophage XR) take 2 tablets by mouth twice daily Ketoconazole 2 % External Shampoo (Nizoral) Use as shampoo on scalp at least 3 times weekly, lather, wait 5 min, then rinse Metoprolol Tartrate 50 MG Oral Tablet (Lopressor) TAKE ONE TABLET BY MOUTH TWICE A DAY, IN THE MORNING AND BEFORE BEDTIME Allopurinol 300 MG Oral Tablet (Zyloprim) 300 mg orally daily; 1 and 1/2 tabs daily Furosemide 40 MG Oral Tablet (Lasix) TAKE ONE TABLET BY MOUTH EVERY DAY NEEDED FOR SWELLING Triamterene-HCTZ 75-50 MG Oral Tablet (Maxzide) TAKE ONE TABLET BY MOUTH THREE DAYS PER WEEK. Rivaroxaban 15 MG Oral Tablet (Xarelto) Take one tablet by mouth every morning Ezetimibe 10 MG Oral Tablet (Zetia) Take 1 Tablet by mouth in the morning. Colchicine 0.6 MG Oral Tablet Take 1 tablet by mouth three times daily as needed Patient not taking: Reported on 11/04/2023 Multivitamin Adult Extra C Oral Tablet Chewable Take 1 Tablet by mouth in the morning. Vitamin B Complex-C Oral Capsule Take 1 Capsule by mouth daily at noon. Acetaminophen 325 MG Oral Tablet (Tylenol) Take 2 Tablets by mouth every 6 hours as needed for Pain, Mild or Fever >38C(100.5F). Rosuvastatin Calcium 5 MG Oral Tablet (Crestor) Take one tab three days per week. Patient not taking: Reported on 09/26/2022 Potassium Chloride Shaina ER 10 MEQ Oral Tablet Extended Release TAKE 1 TABLET BY MOUTH THREE TIMES AWEEK LORAzepam (ATIVAN) 0.5 MG Tablet TAKE 1 TABLET BY MOUTH NEEDED FOR ANXIETY. PSHx Past Surgical History: Procedure Laterality Date BREAST RECONSTRUCTION W/TRAM 01/29/01 right breast COMPLETE REMOVAL OF BREAST, SIMPLE 06/07/05 left simple mas. with implant at [facility] by DRAINAGE OF ABDOMINAL ABSCESS 12/17/2010 DRAINAGE OF ABDOMEN ABSCESS OPEN performed by ELENO BLEDSOE at [facility] INCISION OF BREAST LESION, DEEP 07/04/95 right breast re-excision of involved margins NIPPLE/AREOLA RECONSTRUCTION 01/29/01 [facility] stage (Dr. Abdalla) PARTIAL AMPUTATION OF TOE Left 07/31/2022 AMPUTATION TOE INTERPHALANGEAL JOINT performed by Yonis Henriquez DO at OR [facility] PARTIAL MASTECTOMY 07/04/95 left breast segmental mastectomy PROSTHETIC MAT/MESH, ABD, NECROTIC, REMOVAL 12/17/2010 REMOVAL MESH ABDOMINAL WALL NECROTIZING SOFT TISSUE INFECTION performed by ELENO BLEDSOE at OR [facility] [place] RADIATION TREATMENT DELIVERY 08/10to09/18/95 left breast 5,040 cGy REMOVAL OF OVARY(S) age 14 Oopherectomy,Uni, REMOVE TONSILS & ADENOIDS, UNDER 12 age 3 Tonsillectomy/Adenoids,<10 Y/O REPAIR INITIAL INCISIONAL OR VENTRAL HERNIA; REDUCIBLE 12/17/2010 REPAIR INITIAL INCISIONAL /VENTRAL HERNIA REDUCIBLE performed by ELENO BLEDSOE at OR [facility] [place] SUCTION REMOVE FAT TISSUE, TRUNK 01/29/01 right breast THIGH OR KNEE SURGERY NEC 1997, 1998 Knee/Leg Other Procedures Unlisted TOTAL ABD HYSTERECTOMY W/WO REMOVAL OF TUBE(S) 12/17/2010 TOTAL ABDOMINAL HYSTERECTOMY WITH OR WITHOUT TUBES AND OVARIES performed by ELENO BLEDSOE at OR [facility] [place] Social Hx Social History Tobacco Use Smoking status: Never Smokeless tobacco: Never Vaping Use Vaping status: Never Used Substance Use Topics Alcohol use: Yes Comment: rarely Drug use: No Fam Hx Family History Problem Relation Name Age of Onset Cancer Father prostate ca Diabetes Mother Heart Disorder Mother Stroke Mother Cancer Grandfather (Paternal) Heart Disorder Grandfather (Maternal) Heart Disorder Grandmother (Maternal) Stroke Grandmother (Maternal) Allergies Levofloxacin REVIEW OF SYSTEMS: Per HPI PHYSICAL EXAMINATION: Vital signs over last 24 hours: BP: / No data recorded Pulse: No data recorded Temperature: No data recorded Respirations: No data recorded SpO2: No data recorded ICP: No data recorded CPP: No data recorded NEUROLOGIC EXAMINATION: Exam deferred for angio LABS: Chemistry: Lab Results Component Value Date/Time BUN 25 (H) 08/24/2022 04:49 AM BUN 24 (H) 08/11/2014 04:11 PM CREAT 0.83 10/01/2022 12:00 AM CREAT 0.8 08/11/2014 04:11 PM GFRESTIMATED >60.0 08/11/2014 04:11 PM NA 139 08/24/2022 04:49 AM NA 141 08/11/2014 04:11 PM POTASSIUM 4.2 10/01/2022 12:00 AM POTASSIUM 4.5 08/11/2014 04:11 PM CO2 25 08/24/2022 04:49 AM CO2 26 08/11/2014 04:11 PM Coagulation studies: Lab Results Component Value Date/Time INR 1.3 (H) 08/03/2022 05:52 AM INR 0.94 08/11/2014 04:11 PM Blood count: Lab Results Component Value Date/Time WBC 13.7 (H) 08/24/2022 04:49 AM WBC 12.66 (H) 08/11/2014 04:11 PM HGB 14.5 10/01/2022 12:00 AM HGB 16.1 (H) 08/11/2014 04:11 PM HCT 40.7 08/24/2022 04:49 AM HCT 47.5 (H) 08/11/2014 04:11 PM PLT 347 08/24/2022 04:49 AM PLT 398 08/11/2014 04:11 PM IMAGING STUDIES: - CTH/CTA - L M1 occlusion IMPRESSION: 74 year old female w/ PMH significant for a-fib (on xarelto), obesity, HTN, HLD, and DM2 who presents to the neurosurgery service for DSA and possible mechanical thrombectomy for L M1 occlusion on CTH/CTA. LKW 12 10pm. Found by family to have L gaze, R weakness, and aphasia. OSH NIH 24. No TNK as patient is on xarelto. CTH/CTA with above findings. Taken to angio. RECOMMENDATIONS: Direct to angio More recs to follow Case was discussed with attending physician Cosigned by Yannick Monteiro MD, PhD at 03/30/2024 2:27 PM EST Associated attestation - Yannick Monteiro MD, PhD - 03/30/2024 2:27 PM EST I saw and evaluated the patient today. I have reviewed the resident/fellow physician note and agree. documented in this encounter Nursing Notes * Joana Akers RN - 03/31/2024 5:05 PM EST Dual Licensed Skin Assessment completed by Joana Akers RN and Shara Doyle RN. The patient is/has a N/A Skin Breakdown (includes non blanchable erythema): No R groin site, covered with dressing. * July Ayala RN - 03/30/2024 4:31 PM EST Dual Licensed Skin Assessment completed by July Ayala RN and Isidra Hill RN. The patient is/has a N/A Skin Breakdown (includes non blanchable erythema): No Proplylactic foam dressing applied to sacrum. Turn and reposition Q2 hours to off load pressure andheel off loading protective boots applied. * Shara Ovalle RN - 03/30/2024 10:30 AM EST VAT- Paged by bedside nurse for second PIV. Patient is a double limb alert d/t bilateral mastectomy. Bilateral upper extremities assessed with US. Veins at 1cm or greater in depth. Therefore, if additional IV access or IV medications are required would recommend alternate access such as EJ, IJ etc. * Pawel Baig RN - 03/30/2024 7:41 AM EST Neuroendovascular RN note Name: Verena Field Date: 03/30/2024 Time: 7:41 AM Location: OR [facility] [place] Date of Service: 03/30/2024 Patient arrived at 0734 to [facility] [place] OR 25 for a Intaarterial (IA) Thrombolysis or Mechanical treatment. Patient ID band checked using two identifiers. Patient placed supine on procedure table with comfort measures intact; bilateral arm boards and safety strap in place. Hemodynamic monitoring placed with anesthesia staff remaining at bedside for direct care. 0907 Barry catheter inserted by nurse as ordered. Distal pulses dopplered and marked, No distal pulses detectable in right lower extremity. RT staff prepares and preps for procedure. Anesthesia: General Procedure by physician. 0816 Groin puncture. Access obtained on right. 8 Fr sheath placed. Catheter positioning under fluoroscopy. Angiogram in progress. (This section must only be Documented on when charting for Mechanical Thrombectomy "STROKE CASES" )Interventional details if applicable 0821: Guide catheter placement 0823: Microcatheter placement 0825: Aspiration First pass 0828: stop 0833: Aspiration Second pass 0836: stop 0839: Treatment completed Imaging finished. Catheters removed. 0850 Angioseal placed. Sheath removed and manual pressure to site. Procedure ends. 0900 Hemostasis obtained. Area cleaned. Gauze and Tegaderm dressing applied. Distal pulse unchanged. Patient tolerated well. Reported by RT: Total contrast used: 62 ml DAP plane A: 0.20 Gy DAP plane B: 0.04 Gy Fluoro time plane A: 13.3 minutes Fluoro time plane B: 9.5 minutes documented in this encounter OR Notes * OR Surgeon - Yannick Monteiro MD, PhD - 03/30/2024 9:00 AM EST [facility] [place] [address] [facility] [id number] OPERATIVE REPORT Name: Verena Field Date: 03/30/2024 Time: 9:01 AM Location: OR [facility] [place] Service: Neurosurgery Date of Operation: 03/30/2024 Pre-op Diagnosis: 1. Acute ischemic stroke. 2. L M1 MCA occlusion. Post-op Diagnosis: 1. Successful revascularization of proximal LEFT M1 MCA occlusion, TICI score 3. 2. Negative cerebral angiographic study with no evidence of branch occlusion, aneurysm, AVM, or dAVF. Operation: 1. Mechanical thrombectomy of L M1 MCA occlusion. 2. 6-vessel cerebral angiogram. Surgeon: Yannick Monteiro MD, PhD Assistants: None. Anesthesia: General endotracheal anesthesia Estimated Blood Loss: 100 ml. IV Fluids: 1000 ml. Urine Output: N/A. Drains: None. Specimens/Disposition: None. Apparent Intraoperative Complications: None. Patient Condition: Stable. Disposition: Intensive Care Unit. Attestation: I performed the procedure. Indications and history: 74 year old female. The patient presented with acute onset of right side plegia and aphasia. Last known normal was 2200. NIHSS on presentation was 21. On NCCT, the ASPECTS was 10. Head CTA showed a LM1 MCA occlusion. Xarelto for AFIB/DVT, no thrombolytics given. After discussion with the on-call stroke neurologist, we decided that the patient is a candidate for mechanical thrombectomy. As the patient was not able to signs the consent for the procedure and as there were no family contact with the patient or listed on file, we decided to proceed and perform the procedure as an emergency procedure. Procedure: The patient was brought into the endovascular suite and placed on the table. The patient was identified using two identifiers and a time-out was performed. After prepping and draping both femoral regions in the usual sterile fashion, a micropuncture kit was used to puncture the right femoral artery. Using regular Seldinger technique, 6F sheath was inserted and then upsized to an 8F sheath over a 260 J and attached to a heparinized flush. A 90 cm Neuron Max long guide catheter under constant heparinized saline irrigation was navigated over a 5F VTK catheter and a 0.038 Terumo Glidewire and used to selectively catheterize: - Left Common Carotid Artery. - Left Internal Carotid Artery. for guide catheter placement. In triaxial fashion a Freeclimb 70 with Dave and 014 Synchro Standard was navigated into the L M1 MCA. Continuous aspiration with an aspiration pump was performed. 50cc syringe was applied to the Dalia catheter. After waiting for full 3 minutes the aspiration catheter was retrieved under flow reversal. The device was inspected and organized thrombus was seen. A post thrombectomy run performed showing improved flow consistent with TICI 0 in the Left Hemisphere. This process was repeated 1 times (total of 2 aspiration passes) with final TICI 3 recanalization. The guide catheter was removed and a diagnostic catheter (5 Fr John SELECT) , then advanced over a long-taper 0.035 Terumo Glidewire and used to selectively catheterize the following arteries to obtain better angiographic definition of collateral supply. Right vertebral artery was selected. AP and lateral views of the posterior intracranial circluationwere obtained. Right common carotid artery was selected. AP and lateral views of the carotid bifurcation were obtained. Right internal carotid artery was selected. AP and lateral views of the anterior intracranial circluation were obtained. Right external carotid artery was selected. AP and lateral views of the extracranial carotid circluation were obtained. Left common carotid artery was selected. AP and lateral views of the carotid bifurcation were obtained. Left internal carotid artery was selected. AP and lateral views of the anterior intracranial circluation were obtained. Left external carotid artery was selected. AP and lateral views of the extracranial carotid circluation were obtained. Left vertebral artery was selected. AP and lateral views of the posterior intracranial circluation were obtained. Right common femoral artery. AP views were obtained. At the end of the procedure, the diagnostic catheter was removed and the arteriotomy site was closed with 8 Fr Angioseal. A 3D rotational dynaCTH was obtained and processed at a separate workstation. Findings: Right vertebral artery angiogram: The posterior circulation is unremarkable. No evidence of aneurysm, arteriovenous malformation, vasospasm, or other intracranial vascular abnormality. Right common carotid artery angiogram: The carotid bifurcation is well visualized and without significant arteriosclerotic disease or stenosis. Right internal carotid artery angiogram: The anterior intracranial circulation is unremarkable. No evidence of aneurysm, arteriovenous malformation, vasospasm, or other intracranial vascular abnormality. Right external carotid artery angiogram: The extracranial carotid circulation is unremarkable. Left common carotid artery angiogram: The carotid bifurcation is well visualized and without significant arteriosclerotic disease or stenosis. Prior to attempt #1: Left internal carotid artery angiogram: Proximal LEFT M1 MCA occlusion, TICI 0, rAOL 0. Post thrombectomy attempt #2: Left internal carotid artery angiogram: The anterior intracranial circulation is unremarkable, recanalization rAOL 3 and reperfusion TICI 3. Left external carotid artery angiogram: The extracranial carotid circulation is unremarkable. Left vertebral artery angiogram: The posterior circulation is unremarkable. No evidence of aneurysm, arteriovenous malformation, vasospasm, or other intracranial vascular abnormality. Right common femoral artery: The arteriotomy is above the femoral artery bifurcation. DynaCTH without obvious intracranial hemorrhage or contrast staining in ischemic territory. Impression: 1. Successful revascularization of L M1 MCA occlusion, TICI score 3. 2. Negative cerebral angiographic study with no evidence of branch occlusion, aneurysm, AVM, or dAVF. 3. No obvious ICH on dynaCTH. This chart was completed in part utilizing [employer] Speech Voice Recognition Software. Grammatical errors, random word insertions, prounoun erros, and incomplete sentences are an occasional consequence of this system due to software limitations, ambient noise, and hardware issues. Any formal questions or concerns about the content, text, or information contained within the body of this dictation should be directly addressed to the provider for clarification. Yannick Monteiro MD, PhD Staff Neurosurgeon [facility] [place] documented in this encounter Miscellaneous Notes * Communication - Yannick Monteiro MD, PhD - 04/06/2024 1:45 PM EST [facility]endovascular QOD note Name: Verena Field Date: 04/06/2024 Time: 1:49 PM Location: OR [facility] [place] Date of Service: 03/30/2024 Anesthesia: General Procedure type: For ischemic stroke Last known well (date and time): 2200h, NIHSS: 21 ASPECTS: 10 Pre-morbid mRS: ICH on presenting radiographs?: no Time of final reperfusion: 0839h Time of procedure end: 0850h Final TICI score: yes - TICI score available Modified Treatment in Cerebral Ischemia Scale (mTICI) Grade 3 with Complete antegrade reperfusion of the previously occluded target artery ischemic territory, with absence of visualized occlusion in all distal branches. (TICI = thrombolysis in cerebral infarction) Pre procedure imaging: CT and CTA Intubated prior to arrival in angio suite: Location of occlusion on first angiogram: left MCA Number of thrombectomy passes, total: 2 Embolization in NEW territory? NO Embolization in distal (same as target vessel) territory? NO Intra-procedural Complications: None Enrolled in clinical trial/registry: no Implants: * No implants in log * * Care Plan - Lashell Blake RN - 04/05/2024 6:33 PM EST Clinical Goal(s): pt will remain free from falls or injury during this shift (04/05/24 0700) Possible barriers to meeting goal(s)/advancing plan of care: Stroke dx Stability of the patient: Moderately stable - low risk of patient condition declining or worsening Summary regarding today's goal(s): Met: met Recommendations: continue purposeful hourly rounding * Ancillary Progress Note - Mariangel Gan MSW - 04/05/2024 12:57 PM EST CARE MANAGEMENT - ADULT DISCHARGE NOTE [facility] [place] [address] Name: Verena Field Location: [facility] [place] A461/A Date: 04/05/2024 Time: 12:58 PM The following coordination of care and discharge plan has been coordinated with the care team, patient, family and/or caregiver according to the patients needs and preferences. Discharge Discharge Second Notice Important Message from Medicare delivered: Not Applicable (04/05/24 1258) Was Caregiver/Family/Facility contacted regarding discharge: Yes (04/05/24 125) Discharge Transportation: BLS (04/05/24 1258) Date of scheduled discharge transportation: 04/05/24 (04/05/24 1258) Time of scheduled discharge transportation: 1315 (04/05/24 1258) Patient declined post-hospital transition of care recommendation: N/A (04/05/24 1258) Final Discharge Plan (Complete only at time of Discharge): IP Rehab (04/05/24 1258) Destination - Admitted Since 03/30/2024 Service Provider Services Address Phone Fax Patient Preferred Last Updated [facility] [address] [place] [address] [phone] -- Mariangel Gan MSW 04/05/2024 1037 Narrative: Per service, patient is medically ready for discharge tomorrow. Transportation confirmedfor 1:15pm. Service, bedside nurse, Cristina with [facility], patient's Kenneth, and patient's daughter Caryl all updated. [place] slip with [facility] [place]. Contact CM if discharge plan changes. * Ancillary Progress Note - Gema Edwards PTA - 04/05/2024 10:20 AM EST PROGRESS NOTE - Physical Therapy [facility] [place]-[address] [address] Name: Verena Field Location: [facility] [place] A461/A Date: 04/05/2024 Time: 10:20 AM Attempted to see patient for physical therapy services however patient is currently off the floor at [facility] at this time making her unavailable for services. Will continue to follow patient as able. * Ancillary Progress Note - Isis Stanley COTA - 04/05/2024 10:20 AM EST Occupational Therapy Progress Note Verena Field [facility] [place] A461/A [id number] 04/05/2024 Attempted to see patient today for Occupational therapy treatment session. Patient currently off the floor at imaging at this time. Will continue to follow as able. * Ancillary Progress Note - Mariangel Gan MSW - 04/05/2024 9:40 AM EST CARE MANAGEMENT - ADULT TRANSITION NOTE [facility] [place] [address] Name: Verena Field Location: [facility] [place] A461/A Date: 04/05/2024 Time: 9:40 AM Risk Stratification Risk Stratification Psycho Social / Medical Concerns Identified: Adjustment to illness/injury (03/31/24 1147) OBRA or OPTIONS needed for placement: No (03/31/24 1147) Readmission Risk Score: 10.57 (04/05/24 0801) AM-PAC Score With Stairs : 7 (04/04/24 0800) Caregiver Information Emergency Contacts Name Relation Home Work Mobile Kenneth Field Spouse [phone] Other Contacts Name Relation Home Work Mobile Hamida Field Adult Child [phone] Marisela Edwards Adult Child [phone] Transition of Care Checklist Narrative: At this time, auth is pending for [facility]. HUI updated Cristina with [facility]. HUI to continue to follow. 1038: Auth approved for [facility]; auth number [id number]. HUI updated service and Cristina with [facility]. HUI requested transport for 2pm today. HUI called patient's Kenneth ([phone]) and provided update. HUI to continue to follow. 1123: Transportation confirmed for 4:15pm. HUI updated service and Cristina with [facility]. Cristina stated she will confirm they are able to accept patient today. SW to continue to follow. 1132: Per Cristina, they will have a bed available for patient tomorrow. Cristina asked SW to request a ride after 1pm tomorrow. SW moved ride request to 1:15pm tomorrow. Service, Cristina with [facility], and patient's all updated. SW to continue to follow. UPDATE: Transportation confirmed for 1:15pm tomorrow to [facility] tomorrow. Service, bedside nurse, Cristina with [facility], patient's , and patient's daughter Caryl all updated. [place] slip with [facility]. SW to continue to follow. Anticipated Transportation at Discharge: BLS Patient/Family Expectations: IRF Transition Planning Transition Planning Transition Plan/Considerations: Needs uncertain at this time - Continue monitoring for needs (03/31/24 1147) Additional Considerations: --- Care Management will continue to monitor and assist with discharge planning needs * Ancillary Progress Note - Cheryle Meneses, AIRLINE STATION AGENT - 04/04/2024 2:47 PM EST PATIENT DRIVEN PROTOCOL - Respiratory Care Services [address] [address] Name: Verena Field Location: [facility] [place] A461/A Date: 04/04/2024 Time: 2:06 PM Patient Driven Protocol Summary: Re-evaluation . This Treatment Plan and medications will be reviewed by the Primary Care Team for any contraindications. Respiratory Care Treatment Plan Pulmonary Volume Expansion Therapy: Deep Breathing/Cough PRN to enhance mobilization of secretions and prevent or treat alveolar consolidation and atelectasis. Secretion Management Treatment: Flutter TherapyPRN to enhance mobilization of secretions. Additional Secretion Management Protocols: CPT BID to enhance mobilization of secretions. The patient will be re-evaluated: within 72 hours. The Triage Level is: (Assessment Score = 6 -10) Level 4. Triage Level Definitions: Level 1 Severe Respiratory/Airway Compromise Level 2 Moderate Respiratory/Airway Compromise or high risk for pulmonary complications Level 3 Mild Respiratory/Airway Compromise or moderate risk for pulmonary complications Level 4 Episodic Respiratory/Airway Compromise or low risk for pulmonary complications Level 5 No Respiratory/Airway Compromise Triage 1 Triage 2 Triage 3 Triage 4 Triage 5 greater than 20 16 - 20 11 - 15 6 - 10 0 - 5 Medical Record Assessment Clinical Findings Pulmonary Status: 0 - No History Surgical Status: 1 - General Surgery Chest X-Ray: 2 - Infiltrates and/or Atelectasis Assessment Score: 3 Patient Assessment Clinical Findings Respiratory Pattern: 0 - RR 12 - 20; Patient only gets breathless with strenuous exercise. Breath Sounds: 2 - Diminished bilaterally Cough Effectiveness: 2 - Weak non-productive Sputum Production: 0 - No sputum production Level of Activity: 1 - Ambulatory with assist O2 needed to keep SpO2 greater than or equal to 92%: 0 - Room Air Assessment Score: 5 Total Assessment Score: 8 Breath Sounds: Inspiratory and expiratory diminished bilaterally.. Cough and Sputum: A loose cough produced no sputum... CXR: FINDINGS Bilateral coarsened lung markings and similar left lower basilar ground-glass opacities are again seen, without significant change compared to 03/31/2024. There is no pleural effusion or pneumothorax. The pulmonary vasculature and cardiomediastinal silhouette are within normal limits. Degenerative osseous changes. No acute osseous abnormality. IMPRESSION Similar left basilar opacities, may represent atelectasis, aspiration or pneumonia.. Vital Signs: Resp: 18 (04/04/24 1431) Pulse: 102 (04/04/24 1431) Temp: 36.5 C (97.7 F) (04/04/24 1431) BP: 116/69 (04/04/24 1431) SpO2: 94 % (04/04/24 1431) Primary Service: Neurology - Stroke. Admitting Diagnosis: Pain [R52] Stroke (HCC) [I63.9] Pulmonary Diagnosis: Atelectasis. Prescriptions/Home Medications/Durable Medical Equipment: none. Recommended New home medications/durable medical equipment/outpatient pulmonary/sleep referral n/a. * Care Plan - Kitty Jang, RN - 04/04/2024 2:15 PM EST Clinical Goal(s): Patiet will remain free from falls this shift (04/04/24 0700) Possible barriers to meeting goal(s)/advancing plan of care: weakness Stability of the patient: Moderately stable - low risk of patient condition declining or worsening Summary regarding today's goal(s): Met: Patient remains free from falls Recommendations: Continue fall precautions and purposeful hourly rounding * Ancillary Progress Note - Crystal Gamboa RN - 04/04/2024 10:16 AM EST CARE MANAGEMENT - ADULT TRANSITION NOTE [facility] [place]-[address] [address] Name: Verena Field Location: [facility] [place] A461/A Date: 04/04/2024 Time: 10:17 AM Risk Stratification Risk Stratification Psycho Social / Medical Concerns Identified: Adjustment to illness/injury (03/31/24 1147) OBRA or OPTIONS needed for placement: No (03/31/24 1147) Readmission Risk Score: 10.64 (04/04/24 0800) AM-PAC Score With Stairs : 7 (04/03/24 0912) Caregiver Information Emergency Contacts Name Relation Home Work Mobile Kenneth Field Spouse [phone] Other Contacts Name Relation Home Work Mobile Hamida Field Adult Child [phone] Marisela Edwards Adult Child [phone] Transition of Care Checklist Narrative: LILIAM has been following Verena's hospital course. Discussed in IDT rounds. Verena is currently medically stable for discharge. Therapy evaluated yesterday, auth began today for [facility]. Authorization #[id number] Tracking #[id number] CM will continue to follow for additional discharge needs/plans. Anticipated Transportation at Discharge: BLS Patient/Family Expectations: IRF [facility] Transition Planning Transition Planning Transition Plan/Considerations: Needs uncertain at this time - Continue monitoring for needs (03/31/24 1147) Additional Considerations: Care Management will continue to monitor and assist with discharge planning needs * Care Plan - Marybeth Mckeon RN - 04/03/2024 5:21 PM EST Clinical Goal(s): Pt will be free from injury this shift (04/03/24 0700) Possible barriers to meeting goal(s)/advancing plan of care: stroke Stability of the patient: Moderately stable - low risk of patient condition declining or worsening Summary regarding today's goal(s): Met: generalized weakness Recommendations: continue purposeful hourly rounding * Ancillary Progress Note - Chad Boykin PTA - 04/03/2024 9:12 AM EST PROGRESS NOTE - Physical Therapy [address] [address] Name: Verena Field Location: [facility] [place] A4/A Date: 04/03/2024 Time: 9:12 AM Verena Field is a/an 74 year old female. Patient Status: Inpatient Insurance: Payor: Milena ELIAS Plan: P CURT PREFERRED ENHANCED MP-DD Product Type: *No Product type* Patient Seen: at bedside, nursing cleared patient for therapy Patient Identified By: Name, ID Band and Date Diagnosis: stroke (04/03/24911) Status of treatment: Treatment completed (04/03/24911) Orders: PT evaluation and treatment (04/03/24911) Weight Bearing Status: Weight bearing as tolerated (04/03/24911) Precautions: Barry (04/03/24911) Total Treatment Time--free text: 28 (04/03/24911) Subjective: Patient agreeable to mobilize with therapy Pain: No complaints of pain P.T. Bed Mobility Supine-Sit: Dependent (x2) (04/03/24911) Sit-Supine: Dependent (x2) (04/03/24911) Balance Sit (Static): (Fair- to Poor) (04/03/24911) Sit (Dynamic): (Fair- to Poor-) (04/03/24911) Stand (Static): Not Tested (04/03/24911) Stand (Dynamic): Not Tested (04/03/24911) Patient and or Family Goal(s): unable to obtain Topic of Education: Safety with mobility and Fall prevention Extremity Exercise Supine: Hip;Knee;Ankle (Passive ROM on RLE, Active ROM on LLE) (04/03/24911) Hip : Bilateral LE;Flexion;Adduction;Abduction;1 set of 10 (04/03/24911) Knee : Bilateral LE;Heel slide;SAQ;1 set of 10 (04/03/24911) Ankle: Bilateral LE;Plantar flexion;Dorsiflexion;1 set of 10 (04/03/24911) Method of Education: Verbal discussion and explanation provided to patient: verbalized understanding and or agreement of this information Treatment Provided: Therapeutic Activities 18 minutes: bed mobility training Therapeutic Exercises: 10 minutes Alarm Status Patient positioned in: Chair (04/03/24911) With: Pressure pad alarm intact and functioning and call el in reach (04/03/24911) Patient Education Review of Precautions: Safety (04/03/24911) Safety Awareness: Needs cueing supervision (04/03/24911) Preferred learning method: Combination (04/03/24911) Barriers to learning: Medical Status;Speaking (04/03/24911) Method of Education: Verbalized to patient (04/03/24911) Assessment: Patient found supine in bed, awake and alert on arrival. Completed Passive ROM exercises to RLE (no active movement, minimal tone) and Active ROM exercises to LLE. Patient was Dependent x2 for supine to sit transition. Initially, patient needed Maximal Assistance to maintain her sittingbalance on the edge of the bed (balance loss mostly to her right and posteriorly), but with time and after weight shifting exercises, patient improve to a Contact Guard Level and was able to initiateself correction during balance loss. Patient completed assisted trunk flexion/reaching, medial-lateral movements, and rotations with assistance. Provided passive weight bearing on RUE. Patient did have a tendency of pushing himself toward his right using LUE. Patient returned to supine in bed aftersession, alarm activated and call el within reach. Please consider post-acute care services whichmay include home health, [facility], outpatient therapy or inpatient rehabilitation. The levelof care will be determined in collaboration with patient, family/caregiver and care team members. Deficits requiring P.T. treatment needs: Safety;Mobility;Balance;Weakness;Lower extremity strength (04/03/24911) Plan: Continue with current treatment plan established on evaluation. AM PAC Score with Stairs: 7. A portion of this AM-PAC assessment not scored based on functional assessment; rather clinical decision making utilized based on current findings and/or prior level of function. Please refer to future AM- PAC calculations of functional ability as they become available. * Ancillary Progress Note - Lyla Turner COTA/Jennifer - 04/03/2024 8:44 AM EST PROGRESS NOTE - Occupational Therapy [address] [address] Name: Verena Field Location: [facility] [place] A461/A Date: 04/03/2024 Time: 8:44 AM Verena Field is a 74 year old female. Patient Status: Inpatient Insurance: Payor: [facility] [place] Plan: [facility] GOLD PREFERRED ENHANCED MP-DD Product Type: *No Product type* Patient Seen: at bedside, nursing cleared patient for therapy Patient Identified By: Name, ID Band and Date Diagnosis: stroke (04/03/24843) Status of treatment: Treatment completed (04/03/24843) Orders: OT evaluation and treatment;OT OOB (03/31/24 1033) Weight Bearing Status: Weight bearing as tolerated (04/03/24843) Precautions: Alarms;Falls;Safety (04/03/24843) Total Treatment Time: 28 (04/03/24843) Subjective: Agreeable, communicated through head nods and thumbs up/down. Pain: No complaints of pain Observations Consciousness: Alert (04/03/24843) Cognitive Limitations: Visual attention;Processing (03/31/241032) Psychosocial: Patient cannot communicate basic needs. (Pt cannot communicate verbally) (03/31/241032) Sitting posture: Forward head;Rounded shoulders;Right lateral lean (03/31/241032) Standing posture: Rounded shoulders;Right lateral lean;Forward head (03/31/241032) Safety awareness: Needs cueing supervision. (03/31/241032) Current Functional Status: Activities of Daily Living: Self Care Able to provide self care: Yes (03/31/241032) Feeding: Minimal Assistance (Pt able to bring left hand to mouth while holding form but unable to process the need of piercing food with utensil) (03/31/241032) Grooming: Supervision (Please comment) (wash face) (04/03/24843) Dressing Upper Body: Maximal Assistance (manage gown) (04/03/24843) Lower Body: Dependent (manage socks) (04/03/24843) Functional Ambulation Assistive Device: No device (04/03/24843) Distance in feet:: 0 (04/03/24843) Level of Assistance: Not Tested (04/03/24843) Bed Mobility Supine-Sit: Dependent (x2) (04/03/24843) Sit-Supine: Dependent (x2) (04/03/24843) Balance Sit (Static): Poor (- to fair -) (04/03/24843) Sit (Dynamic): Poor (- to fair -) (04/03/24843) Stand (Static): Not Tested (04/03/24843) Stand (Dynamic): Not Tested (04/03/24843) Patient Education Education Topic: Role of OT;Plan of care goals (04/03/24843) Review of Precautions: Safety;Fall (04/03/24843) Barriers to learning: Medical status (04/03/24843) Preferred learning method: Combination (04/03/24843) Alarm Status Patient positioned in: Bed (04/03/24843) With: Bed alarm intact and functioning and call el in reach (04/03/24843) Treatment Provided: Self Shelter Management Trainin minutes Therapeutic Activity: 18 minutes Deficits requiring O.T. treatment needs: ADL/self-care;Balance;Endurance;Fine motor coordination;Functional mobility;Safety;Upper extremity strength;Upper extremity range of motion;Weakness () Assessment: Patient lying supine in bed upon entry. Patient responded to touch on all 4 extremities, and able to follow commands throughout session. Patient completed bed mobility with use of bed rail. She sat on EOB and was able to track therapist's finger however noted that when looking to right,patient would begin to move her head as well. Patient then completed self righting exercises, presented with a R lateral lean. She would push into her lean with her left hand which increased with fatigue. Patient able to correct lean/sitting posture with cues. She was able to complete ADLs at abovelevels, therapist unable to locate resting hand splint at this time therefore not donned, performedgentle stretching/ROM on RUE and once returned to bed positioned RUE elevated on pillow with hand open. Patient left in bed with all needs met, improved sitting balance and activity tolerance this session. Please consider post-acute care services which may include home health, mcc, outpatient therapy or inpatient rehabilitation. The level of care will be determined in collaboration with patient, family/caregiver and care team members. Plan: continue per plan of care Anticipated Frequency (on eval): 3 to 5 times per week (04/03/24843) AM-PAC Help From Another Person Eating Meals: A little (04/03/24843) Help From Another Person Taking Care of Personal Grooming: A little (04/03/24843) Help From Another Person To Put On/Take Off Upper Body Clothing: A lot (04/03/24843) Help From Another Person To Put On/Take Off Lower Body Clothing: Total (04/03/24843) Help From Another Person Toileting: Total (04/03/24843) Help From Another Person Bathing: Total (04/03/24843) OT AM-PAC Score: 11 (04/03/24843) OT AM-PAC t-Scale Score: 29.04 (04/03/24843) HLM (Highest Level of Mobility) Goal: Level 3 sit at edge of bed (04/03/24799) A portion of this AM-PAC assessment not scored based on functional assessment; rather clinical decision making utilized based on current findings and/or prior level of function. Please refer to future AM-PAC calculations of functional ability as they become available. * Care Plan - Cony Melgar RN - 04/03/2024 4:46 AM EST Clinical Goal(s): safety (04/02/24 2300) Possible barriers to meeting goal(s)/advancing plan of care: weakness Stability of the patient: Moderately stable - low risk of patient condition declining or worsening Summary regarding today's goal(s): Met: no falls/injury this shift Recommendations: continue plan of care, fall precautions in place * Care Plan - Lashell Blake RN - 04/02/2024 6:40 PM EST Clinical Goal(s): pt will remain free from falls or injury during this shift (04/02/24 0700) Possible barriers to meeting goal(s)/advancing plan of care: weakness Stability of the patient: Moderately stable - low risk of patient condition declining or worsening Summary regarding today's goal(s): Met: met Recommendations: continue purposeful hourly rounding * Ancillary Progress Note - Casie Joe RRT - 04/02/2024 5:06 PM EST PATIENT DRIVEN PROTOCOL - Respiratory Care Services [address] [address] Name: Verena Field Location: [facility] [place] A461/A Date: 04/02/2024 Time: 5:06 PM Patient Driven Protocol Summary: Re-evaluation . This Treatment Plan and medications will be reviewed by the Primary Care Team for any contraindications. Respiratory Care Treatment Plan Pulmonary Volume Expansion Therapy: Deep Breathing/Cough PRN to enhance mobilization of secretions and prevent or treat alveolar consolidation and atelectasis. . Secretion Management Treatment: Flutter TherapyPRN to enhance mobilization of secretions. Additional Secretion Management Protocols: CPT BID + PRN to enhance mobilization of secretions. . The patient will be re-evaluated: within 48 hours. The Triage Level is: (Assessment Score = 6 -10) Level 4. Triage Level Definitions: Level 1 Severe Respiratory/Airway Compromise Level 2 Moderate Respiratory/Airway Compromise or high risk for pulmonary complications Level 3 Mild Respiratory/Airway Compromise or moderate risk for pulmonary complications Level 4 Episodic Respiratory/Airway Compromise or low risk for pulmonary complications Level 5 No Respiratory/Airway Compromise Triage 1 Triage 2 Triage 3 Triage 4 Triage 5 greater than 20 16 - 20 11 - 15 6 - 10 0 - 5 Medical Record Assessment Clinical Findings Pulmonary Status: 0 - No History Surgical Status: 1 - General Surgery Chest X-Ray: 2 - Infiltrates and/or Atelectasis Assessment Score: 3 Patient Assessment Clinical Findings Respiratory Pattern: 0 - RR 12 - 20; Patient only gets breathless with strenuous exercise. Breath Sounds: 2 - Diminished bilaterally Cough Effectiveness: 2 - Weak non-productive Sputum Production: 0 - No sputum production Level of Activity: 1 - Ambulatory with assist O2 needed to keep SpO2 greater than or equal to 92%: 0 - Room Air Assessment Score: 5 Total Assessment Score: 8 Breath Sounds: Inspiratory and expiratory diminished bilaterally.. Cough and Sputum: A loose cough produced no sputum... CXR: FINDINGS Bilateral coarsened lung markings and similar left lower basilar ground-glass opacities are again seen, without significant change compared to 03/31/2024. There is no pleural effusion or pneumothorax. The pulmonary vasculature and cardiomediastinal silhouette are within normal limits. Degenerative osseous changes. No acute osseous abnormality. IMPRESSION Similar left basilar opacities, may represent atelectasis, aspiration or pneumonia.. Vital Signs: Resp: 20 (04/02/24 141) Pulse: 75 (04/02/24 141) Temp: 36.9 C (98.4 F) (04/02/241413) BP: 110/68 (04/02/241413) SpO2: 92 % (04/02/241413) Primary Service: Neurology - Stroke. Admitting Diagnosis: Pain [R52] Stroke (HCC) [I63.9] Pulmonary Diagnosis: Atelectasis. Prescriptions/Home Medications/Durable Medical Equipment: none. Recommended New home medications/durable medical equipment/outpatient pulmonary/sleep referral n/a. * Ancillary Progress Note - Mariangel Gan MSW - 04/02/2024 8:22 AM EST CARE MANAGEMENT - ADULT TRANSITION NOTE [facility] [place]-[address] [address] Name: Verena Field Location: [facility] [place] A461/A Date: 04/02/2024 Time: 8:22 AM Risk Stratification Risk Stratification Psycho Social / Medical Concerns Identified: Adjustment to illness/injury (03/31/241146) OBRA or OPTIONS needed for placement: No (03/31/241146) Readmission Risk Score: 11.34 (04/02/24 0800) AM-PAC Score With Stairs : 8 (04/01/242036) Caregiver Information Emergency Contacts Name Relation Home Work Mobile Kenneth Field Spouse [phone] Other Contacts Name Relation Home Work Mobile Hamida Field Adult Child [phone] Marisela Edwards Adult Child [phone] Transition of Care Checklist Narrative: Awaiting updated PT/OT notes to assist with discharge planning. HUI to continue to follow. 1006: SW received a call from Cristina with [facility], who reported she got a call from asking for [facility] to review patient. [facility] asked SW to open referral in [facility] for them to review. HUI called patient's Kenneth ([phone]) and left message requesting a call back to discussdischarge planning. SW to continue to follow. 1107: HUI called patient's Kenneth ([phone]) to discuss discharge planning. Kenneth requested referral to [facility]. HUI reported if [facility] cannot accept, will have to look at SNFs. HUI left list of SNFs in patient's room for to review. SW to continue to follow. 1330: Bedside nurse reported patient's family would like to speak with HUI regarding discharge planning. SW met with and daughter Hamida at bedside per their request. asked for update on referral to [facility]. SW provided update; Cristina is reviewing referral at this time. SW informed of recommendation from PM&R for SNF; still would like to try referral to [facility] at this time. Family requested to speak with service regarding medical update/questions. Service updated. SW to continue to follow. 1434: Cristina with [facility] reported they are able to offer a bed for patient. Cristina asked SW to submit for auth. SW requested STAT PT/OT for tomorrow morning in order for weekend CM to submit for auth. SW spoke with patient's and daughter Hamida to provide update. agreeable to submit auth for [facility]. SW updated service. SW to continue to follow. Anticipated Transportation at Discharge: S Patient/Family Expectations: SNF/IRF Transition Planning Transition Planning Transition Plan/Considerations: Needs uncertain at this time - Continue monitoring for needs (03/31/24 1147) Additional Considerations: --- Care Management will continue to monitor and assist with discharge planning needs * Care Plan - Shara Funes, LISA - 04/02/2024 5:47 AM EST Clinical Goal(s): Pt will remain free from falls (04/01/24 1900) Possible barriers to meeting goal(s)/advancing plan of care: weakness Stability of the patient: Moderately stable - low risk of patient condition declining or worsening Summary regarding today's goal(s): Met: pt remained free from falls Recommendations: fall precautions, hourly rounding, pain mgmt * Care Plan - Joana Akers RN - 04/01/2024 3:41 PM EST Clinical Goal(s): remain free of injury (04/01/24 0720) Possible barriers to meeting goal(s)/advancing plan of care: stroke, weakness Stability of the patient: Moderately stable - low risk of patient condition declining or worsening Summary regarding today's goal(s): Met: free of injury Recommendations: continue safety precautions and hourly rounding * Ancillary Progress Note - Mariangel Gan MSW - 04/01/2024 10:05 AM EST CARE MANAGEMENT - ADULT TRANSITION NOTE [facility] [place]-[address] [address] Name: Verena Field Location: [facility] [place] A461/A Date: 04/01/2024 Time: 10:05 AM Risk Stratification Risk Stratification Psycho Social / Medical Concerns Identified: Adjustment to illness/injury (03/31/24 114) OBRA or OPTIONS needed for placement: No (03/31/241146) Readmission Risk Score: 10.4 (04/01/24 0801) AM-PAC Score With Stairs : 8 (04/01/24 0720) Caregiver Information Emergency Contacts Name Relation Home Work Mobile Kenneth Field Spouse [phone] Other Contacts Name Relation Home Work Mobile Hamida Field Adult Child [phone] Marisela Edwards Adult Child [phone] Transition of Care Checklist Narrative: SW participated in IDT rounds. Per service, patient was febrile overnight; not medicallyready for discharge today. SW to continue to follow. Anticipated Transportation at Discharge: medical Patient/Family Expectations: SNF/IRF Transition Planning Transition Planning Transition Plan/Considerations: Needs uncertain at this time - Continue monitoring for needs (03/31/241146) Additional Considerations: --- Care Management will continue to monitor and assist with discharge planning needs * Ancillary Progress Note - Kita Agosto SLP - 04/01/2024 10:01 AM EST PROGRESS NOTE - Speech-Language Pathology [facility] [place]-[address] [address] Name: Verena Field Location: [facility] [place] A461/A Date: 04/01/2024 Time: 10:01 AM Patient Status: Inpatient Insurance: Payor: [facility] / Plan: [facility] GOLD PREFERRED ENHANCED MP-DD / Product Type: *No Product type* / Patient Age: [age] year old Pt seen this date for dysphagia f/u and swallowing treatment Pt currently NPO- RN reports coughing with thin and pocketing of solids last night Pt awake, alert, and cooperative, sitting upright in bed upon arrival to room Pt continues with L sided facial weakness and asymmetry Pt presented with thin via tsp/cup/straw, puree, soft and bite sized, and regular solids. Oral-pharyngeal skills appear to be within functional limits at this time. Pt with intermittent prolonged mastication and swallow initiation with regular solids. No overt s/sx of pharyngeal dysphagiawith any PO trials. No pocketing appreciated. Per discussion with RN, pt would best tolerate soft and bite sized. Recommendations: -Soft and bite sized -Thin -Meds as tolerated -Total assistance for meals -Check for pocketing, small bites/sips -Upright with 90 degree hip flexion for all PO -Frequent oral care for pt comfort/hygiene ST to continue to f/u for cognitive-communication * Care Plan - Shara Funes RN - 04/01/2024 12:21 AM EST Clinical Goal(s): Pt will remain free from falls (03/31/24 2300) Possible barriers to meeting goal(s)/advancing plan of care: weakness Stability of the patient: Moderately stable - low risk of patient condition declining or worsening Summary regarding today's goal(s): Met: pt remained free from falls Recommendations: fall precautions,hourly rounding, pain mgmt * Care Plan - Joana Akers RN - 03/31/2024 5:08 PM EST Clinical Goal(s): remain free of injury (03/31/24 1649) Possible barriers to meeting goal(s)/advancing plan of care: stroke, weakness Stability of the patient: Moderately stable - low risk of patient condition declining or worsening Summary regarding today's goal(s): Met: free of injury Recommendations: continue safety precautions and hourly rounding * Ancillary Progress Note - Mariangel Gan MSW - 03/31/2024 11:43 AM EST CARE MANAGEMENT - ADULT INITIAL SCREENING [facility] [place]-[address] [address] Name: Verena Field Location: [facility] [place] A545/A Date: 03/31/2024 Time: 11:43 AM Discussed patient with the interdisciplinary care team. This Pit Boss performed a chart review and spoke with patient's to complete admission screen and assessed needs for transition planning. The home health care respiratory therapist role and services were explained and emotional support was provided. Chief Complaint: No chief complaint on file. Prior Living Arrangements What was your living situation prior to admission/observation?: Independently;With Spouse () Living Quarters: House (03/31/241146) Number of steps to enter living quarters:: no MARYJO (03/31/24 114) History of falling: Yes (03/31/24 0800) Prior Level of Functioning Describe the patient's ability prior to admission/observation to perform ADLs: Performs independently (03/31/241146) Describe the patient's mobility status prior to admission: Patient ambulates independently (03/31/241146) Patient uses assistive device: No (03/31/241146) Caregiver Information Emergency Contacts Name Relation Home Work Mobile Kenneth Field Spouse [phone] Other Contacts Name Relation Home Work Mobile HAMIDA Adult Child [phone] LONG MARISELA Adult Child [phone] Risk Stratification/Psychosocial/Care Gaps Risk Stratification Psycho Social / Medical Concerns Identified: Adjustment to illness/injury (03/31/241146) OBRA or OPTIONS needed for placement: No (03/31/241146) Readmission Risk Score: 9.32 (03/31/24 08) AM-PAC Score With Stairs : 7 (03/31/24799) Prior to Admission Services Services Prior to Admission CREDIT CARD ANALYST Services (Services received within the last 30 days with exception, Psych within last two years): N/A (03/31/241146) [place] Dept[employer] 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 Patient lives with her in a one story home with no MARYJO; steps to basement. Patient was independent with ADLs, uses no DME. 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 reported no history of SNF/IRF/HH for patient. Patient's open to considering SNF/IRF if recommended. SW to continue to follow to assist with discharge planning needs as they arise. For further screening information, please refer to the Care Management flow document. * Pt Handout (on AVS) - SHARMAINE, PATIENT HANDOUT - 03/31/2024 8:28 AM EST Images from the original note were not included. [id number] What Is Ischemic Stroke? The brain needs a constant supply of blood to work. During a stroke, blood stops flowing to part ofthe brain. The affected area is damaged. Its functions are harmed or even lost. Most strokes are caused by a blockage in a blood vessel that supplies the brain. This is an ischemic stroke. They can also occur if a blood vessel in the brain ruptures (hemorrhagic stroke). The carotids are large arteries that carry blood from the heart to the brain. From the heart to the brain The heart is a pump. It sends oxygen-rich blood out through blood vessels called arteries. If an artery between the heart and the brain is blocked, the brain can?t get enough oxygen. Some artery blockages are caused by fatty deposits (plaque). Arteries can also be blocked by blood clots. Some clotsform on the plaque. Others can form in the heart?especially in people with atrial fibrillation, an irregular heart rhythm. If a piece of plaque or clot breaks off and enters the bloodstream, it can block flow to the brain and cause a stroke. How a stroke occurs Ischemic stroke occurs when an artery that supplies the brain is greatly narrowed or blocked. This can be caused by a buildup of plaque. It can also occur when small pieces of plaque or blood clot (emboli) break off from the blood vessel or heart into the bloodstream. The emboli flow in the blood until they get stuck in a small blood vessel that limits blood flow to the brain. Healthy arteries. In a healthy artery, the lining of the artery wall is smooth. This lets blood flow freely from the heart to the rest of the body. The brain gets all the blood it needs to function well. Damaged arteries. High blood pressure, cigarette smoking, high cholesterol, or other problems can roughen artery duque. This allows plaque to build up in the duque. Blood clots may also form on the plaque. This can narrow the artery and limit blood flow. Healthy arteries Damaged arteries Know the symptoms of a stroke Weakness. You may feel a sudden weakness, tingling, or a loss of feeling on one side of your face or body including your arm or leg. Vision problems. You may have sudden double vision or trouble seeing in one or both eyes. Speech problems. You may have sudden trouble talking, slurred speech, or problems understanding others. Movement problems. You may have sudden trouble walking, dizziness, a feeling of spinning, a lossof balance, a feeling of falling, or blackouts. Remember: If you have any of these symptoms, call 911 and your doctor as soon as possible. B.E. F.A.S.T. is an easy way to remember the signs of a stroke. When you see the signs, you will know what you need to call 911 fast. B.E. F.A.S.T. stands for: B is for balance. Sudden loss of balance or coordination. E is for eyes. Vision changes in one or both eyes. F is for face drooping. One side of the face is drooping or numb. When the person smiles, the smile is uneven. A is for arm weakness. One arm is weak or numb. When the person lifts both arms and the same time, one arm may drift downward. S is for speech difficulty. You may notice slurred speech or trouble speaking. The person can't repeat a simple sentence correctly when asked. T is for time to call 911. If someone shows any of these symptoms, even if they go away, call 911 right away. Make note of the time the symptoms first appeared. Last Reviewed Date: 2023 00:00:00 [id number] [employer]. All rights reserved. This information is not intended as a substitute for professional medical care. Always follow your healthcare professional's instructions. * Pt Handout (on AVS) - SHARMAINE PATIENT HANDOUT - 03/31/2024 8:28 AM EST Images from the original note were not included. [id number] Symptoms of a Stroke During a stroke, blood stops flowing to part of the brain or there is bleeding in the brain. This can damage areas in the brain that control the rest of the body. A stroke can happen to anyone at anyage. Call 911 and get help right away if any of these symptoms come on suddenly, even if the symptoms don?t last. Know the symptoms of a stroke A sudden feeling of weakness on one side of your body may be a sign that you are having a stroke. Weakness. You may feel a sudden weakness, tingling, or a loss of feeling on one side of your face or body including your arm or leg. Vision problems. You may have sudden double vision or trouble seeing in one or both eyes. Speech problems. You may have sudden trouble talking, slurred speech, or problems understanding others. Headache. You may have a sudden, severe headache. Movement problems. You may have sudden trouble walking, dizziness, a feeling of spinning, a lossof balance, a feeling of falling, or blackouts. Seizure. You may also have a seizure as the first symptom of a stroke. When to call 911 Remember: If you have any of these symptoms, or if someone you are with has these symptoms, call 911 as soon as possible. Never drive yourself or the person with symptoms to the hospital. The ambulance can alert the hospital and start treatment right away. B.E. F.A.S.T. is an easy way to remember the signs of a stroke. When you see these signs, you will know that you need to call 911 fast. B.E. F.A.S.T. stands for: B is for balance. Sudden loss of balance or coordination. E is for eyes. Vision changes in one or both eyes. F is for face drooping. One side of the face is drooping or numb. When the person smiles, the smile is uneven. A is for arm weakness. One arm is weak or numb. When the person lifts both arms at the same time, one arm may drift downward. S is for speech difficulty. You may notice slurred speech or difficulty speaking. The person can't repeat a simple sentence correctly when asked. T is for time to dial 911. If someone shows any of these symptoms, even if they go away, call 911 right away. Make note of the time the symptoms first appeared. Last Reviewed Date: 2024 00:00:00 [id number] [employer]. All rights reserved. This information is not intended as a substitute for professional medical care. Always follow your healthcare professional's instructions. * Pt Handout (on AVS) - [facility] PATIENT HANDOUT - 03/31/2024 8:28 AM EST [id number] Risk Factors for Stroke Certain health and lifestyle issues?called risk factors?increase your chances of having a stroke. The biggest risk factor for stroke is high blood pressure. But there are many other factors that alsoput you at risk. The list below can help you identify which risk factors you have. That way, you know where you need to make healthy changes. Talk with your healthcare provider about ways to help redu ce your risk factors. What are your risk factors? Risk factors are different for each person. Check off the factors that apply to you. Keep in mind that some factors, such as your age, can?t be changed. But others can be managed. Health risk factors You have high blood pressure. You?re overweight. You have unhealthy cholesterol levels. You have atrial fibrillation. You have atrial flutter. You?ve had a heart attack. You have narrowed arteries. You have diabetes. You are a man. You are an . You are an . You are an . Lifestyle risk factors You rarely exercise. You often eat salty, fried, or greasy foods. You smoke. You have more than 2 alcoholic drinks per day. Age and family history You?re over age 60. A parent, brother, or sister has had a stroke. Metabolic syndrome Any of the factors above may put you at increased risk for stroke. But having 3 or more of 5 certain risk factors raises your risk more. This is a condition called metabolic syndrome. These factors include: Too much weight around your waist (or apple shaped body) High blood pressure High blood sugar Low levels of HDL (good) cholesterol levels High levels of triglycerides If you're a woman, your risks may also include polycystic ovary syndrome. If you have any of these risk factors, be sure to talk with your provider about how to decrease your risk of stroke and improve your overall health. Last Reviewed Date: 2023 00:00:00 5913-7017 [employer]. All rights reserved. This information is not intended as a substitute for professional medical care. Always follow your healthcare professional's instructions. * Pt Handout (on AVS) - JOHN SCHMID HANDOUT - 03/31/2024 8:28 AM EST [id number] Discharge Instructions for Stroke You have a high risk for a stroke, or a TIA (transient ischemic attack). During a stroke, blood stops flowing to part of your brain. This can damage areas in the brain that control other parts of thebody. Symptoms from a stroke depend on which part of the brain has been affected. Stroke risk factors Once you?ve had a stroke, you?re at greater risk for another one. Listed below are some other factors that can raise your risk for a stroke: High blood pressure High cholesterol Cigarette or cigar smoking Diabetes Carotid or other artery disease Atrial fibrillation, atrial flutter, or other heart disease Not being physically active Obesity Certain blood disorders, such as sickle cell anemia Drinking too much alcohol Abusing street drugs Race Gender Family history of stroke Diet high in salty, fried, or greasy foods Changes in daily living Doing some everyday tasks may be hard after you?ve had a stroke. But you can learn new ways to manage. In fact, doing daily activities may help you to regain muscle strength. This can help your affected arm or leg work more normally. Be patient. Give yourself time to adjust. And appreciate the progress you make. Daily activities You may be at risk of falling. Make changes to your home to help you walk more easily. A therapist will decide if you need an assistive device, such as a cane or walker, to walk safely. You may need to see an occupational therapist (OT). Or you may see a physical therapist (PT). Thesehealthcare providers can help you to learn new ways of doing things. For example, you may need to make changes in how you bathe or dress. You may also need a speech therapist. This is someone who helps you speak normally again and be able to swallow. Tips for showering or bathing Test the water temperature with a hand or foot that was not affected by the stroke. Use grab bars, a shower seat, a handheld showerhead, and a long-handled brush. Use any other device as advised by your therapists. Tips for getting dressed Dress while sitting, starting with the affected side or limb. Wear shirts that pull easily over your head. Wear pants or skirts with elastic waistbands. Use zippers with loops attached to the pull tabs. Lifestyle changes Take your medicines exactly as directed. Don?t skip doses. Begin an exercise program. Ask your provider how to get started. Ask how much activity you should try to get every day or week. You can benefit from simple activities such as walking or gardening. Limit how much alcohol you drink. Control your cholesterol level. Follow your provider?s advice about how to do this. If you are a smoker, quit now. Join a stop-smoking program to improve your chances of success. Ask your provider about medicines or other methods to help you quit. Learn stress management methods. These can help you deal with stress in your home and work life. Diet Your healthcare provider will guide you on changes you may need to make to your diet. They may advise that you see a registered dietitian for help with changes. The changes can improve your cholesterol, blood pressure, and blood sugar. Changes may include: Reducing the amount of fat and cholesterol you eat Reducing the amount of salt (sodium) in your diet, especially if you have high blood pressure Eating more vegetables and fruits Eating more lean proteins, such as fish, poultry, and beans and peas (legumes) Eating less red meat and processed meats Using low-fat dairy products Limiting vegetable oils and nut oils Limiting sweets and processed foods such as chips, cookies, and baked goods Not eating trans fats. These are often found in processed foods. Don't eat any food that has hydrogenated oils listed in its ingredients. Follow-up care Keep your medical appointments. Close follow-up is important to stroke rehabilitation and recovery. Some medicines require blood tests to check for progress or problems. Keep follow-up appointments for any blood tests ordered by your providers. Call 911 Call 911 right away if you have any of the following symptoms of stroke: Weakness, tingling, or loss of feeling on one side of your face or body Sudden double vision or trouble seeing in one or both eyes Sudden trouble talking or slurred speech Trouble understanding others Sudden, severe headache Dizziness, loss of balance, or a sense of falling Blackouts or seizures B.E. F.A.S.T. is an easy way to remember the signs of stroke. When you see these signs, you know that you need to call 911 fast. B.E. F.A.S.T. stands for: B is for balance. Sudden loss of balance or coordination. E is for eyes. Vision changes in one or both eyes. F is for face drooping. One side of the face is drooping or numb. When the person smiles, the smile is uneven. A is for arm weakness. One arm is weak or numb. When the person lifts both arms at the same time, one arm may drift downward. S is for speech difficulty. You may notice slurred speech or trouble speaking. The person can't repeat a simple sentence correctly when asked. T is for time to call 911. If someone shows any of these symptoms, even if they go away, call 911 right away. Make note of the time the symptoms first appeared. Last Reviewed Date: 2021 00:00:00 [id number] [employer]. All rights reserved. This information is not intended as a substitute for professional medical care. Always follow your healthcare professional's instructions. * Care Plan - Jan Kapoor RN - 03/31/2024 5:37 AM EST Clinical Goal(s): Patient will maintain GCS >11 this shift (03/30/241999) Possible barriers to meeting goal(s)/advancing plan of care: acute CVA Stability of the patient: Moderately unstable - medium risk of patient condition declining or worsening Summary regarding today's goal(s): Met: Patient maintained GCS >11 this shift Recommendations: continue to reorient patient * Respiratory Progress Note - Crystal Collins RRT - 03/30/2024 5:39 PM EST PATIENT DRIVEN PROTOCOL - Respiratory Care Services [address] [address] Name: Verena Field Location: [facility] [place] A545/A Date: 03/30/2024 Time: 5:39 PM Patient Driven Protocol Summary: Initial evaluation performed. This Treatment Plan and medications will be reviewed by the Primary Care Team for any contraindications. Respiratory Care Treatment Plan Pulmonary Volume Expansion Therapy: Incentive Spirometry PRN to prevent or treat alveolar consolidation and atelectasis. . Secretion Management Treatment: Flutter TherapyPRN to enhance mobilization of secretions. . The patient will be re-evaluated: within 48 hours. The Triage Level is: (Assessment Score = 0 - 5) Level 5. Triage Level Definitions: Level 1 Severe Respiratory/Airway Compromise Level 2 Moderate Respiratory/Airway Compromise or high risk for pulmonary complications Level 3 Mild Respiratory/Airway Compromise or moderate risk for pulmonary complications Level 4 Episodic Respiratory/Airway Compromise or low risk for pulmonary complications Level 5 No Respiratory/Airway Compromise Triage 1 Triage 2 Triage 3 Triage 4 Triage 5 greater than 20 16 - 20 11 - 15 6 - 10 0 - 5 Medical Record Assessment Clinical Findings Pulmonary Status: 0 - No History Surgical Status: 1 - General Surgery Chest X-Ray: 0 - Not Performed or performed greater than 3 days ago Assessment Score: 1 Patient Assessment Clinical Findings Respiratory Pattern: 0 - RR 12 - 20; Patient only gets breathless with strenuous exercise. Breath Sounds: 0 - Clear to auscultation Cough Effectiveness: 2 - Weak non-productive Sputum Production: 0 - No sputum production Level of Activity: 2 - Temporarily non-ambulatory O2 needed to keep SpO2 greater than or equal to 92%: 0 - Room Air Assessment Score: 4 Total Assessment Score: 5 Breath Sounds: Inspiratory and expiratory clear and diminished bilaterally.. Cough and Sputum: No cough was present.. CXR: not performed . Vital Signs: Resp: 21 (03/30/24 1700) Pulse: 68 (03/30/24 1700) Temp: 36.9 C (98.4 F) (03/30/24 1600) BP: 155/58 (03/30/24 1700) SpO2: 96 % (03/30/24 1700) Patient unable to perform Inspiratory Capacity. Reason: patient cannot coordinate . Primary Service: Critical Care Red. Admitting Diagnosis: Pain [R52] Stroke (HCC) [I63.9] Pulmonary Diagnosis: none . Prescriptions/Home Medications/Durable Medical Equipment: none. Recommended New home medications/durable medical equipment/outpatient pulmonary/sleep referral none. * Ancillary Progress Note - Soraya Turner SLP - 03/30/2024 11:23 AM EST PROGRESS NOTE - Speech-Language Pathology [facility] [place]-[address] [place] [address] Name: Verena Field Location: [facility] [place] A545/A Date: 03/30/2024 Time: 11:23 AM Patient Status: Inpatient Insurance: Payor: [facility] CURT / Plan: P CURT PREFERRED ENHANCED MP-DD / Product Type: *No Product type* / Patient Age: [age] year old Consult received and appreciated. MONUMENT CARVER attempt to complete consult this date. Per discussion with nursing, pt to remain HOB flat post-procedure. MONUMENT CARVER to f/u to complete as pt is available and appropriate. documented in this encounter Plan of Treatment Upcoming Encounters Date Type Department Care Team (Late st Contact Info) Description 04/07/2024 5:30 AM EST Laboratory Lab Mobile Phlebotomy [facility] [address] [place] [address] [facility] [address] [place] [address] Arrived 06/02/2024 9:20 AM EST Telemedicine Neurology [place] [address] [place] [address] Solitario Cordero MD [address] [place] [address] [facility] [address] [place] [address] 06/10/2024 1:00 PM EST Office Visit Neurosurgery, [place] [address] [place] [address] Sunny Reyes PA-C [facility] [address] [place], [place] [id number] 11/03/2024 9:30 AM EDT Office Visit Gynecology/Oncology, [place] [address] [place] [address] [facility]ara Garcia [facility]C [address] [facility] [phone] 01/06/2025 8:00 AM EDT Office Visit Cardiology, [facility] [address] [place] [address] Ralph Bauer MD [address] [place] [address] Scheduled Referrals Name Type Priority Associated Diagnoses Orde r Schedule CARDIOLOGY REFERRAL OP Referral Within 30 days (routine) Statin intolerance Dyslipidemia, goal LDL below 70 Ordered: 04/06/2024 Health Maintenance Due Date Last Done Comments [...] this encounter Medical Devices Implanted Type Area News Internship Device Identifier Shelf Expiration Date Model / Serial / Lot Mesh C-Qur 4 X 6 Inch 13685 - [id number] Implanted:Qty: 1 on 12/17/2010 at OR [facility] [place] N/A: Abdomen [employer] [id number] / / [id number] documented as of this encounter Procedures Procedure Name Priority Date/Time Associated Diagnosis Comments GLUCOSE METER, POINT OF CARE KAREN 04/06/2024 11:50 AM EST GLUCOSE METER, POINT OF CARE KAREN 04/06/2024 7:18 AM EST GLUCOSE METER, POINT OF CARE KAREN 04/05/2024 9:28 PM EST GLUCOSE METER, POINT OF CARE KAREN 04/05/2024 5:04 PM EST GLUCOSE METER, POINT OF CARE KAREN 04/05/2024 12:17 PM EST GLUCOSE METER, POINT OF CARE KAREN 04/05/2024 11:42 AM EST XR ABDOMEN 1 VIEW Routine 04/05/2024 10: 33 AM EST GLUCOSE METER, POINT OF CARE KAREN 04/05/2024 7:41 AM EST BASIC METABOLIC PANEL Routine 04/05/2024 6:50 AM EST CBC Routine 04/05/2024 6:50 AM EST GLUCOSE METER, POINT OF CARE KAREN 04/04/2024 9:58 PM EST GLUCOSE METER, POINT OF CARE KAREN 04/04/2024 4:50 PM EST GLUCOSE METER, POINT OF CARE KAREN 04/04/2024 12:20 PM EST CBC Routine 04/04/2024 10:16 AM EST GLUCOSE METER, POINT OF CARE [facility] 04/04/2024 7:50 AM EST BASIC METABOLIC PANEL Routine 04/04/2024 7:23 AM EST GLUCOSE METER, POINT OF CARE [facility] 04/03/2024 9:08 PM EST GLUCOSE METER, POINT OF CARE [facility] 04/03/2024 4:53 PM EST GLUCOSE METER, POINT OF CARE [facility] 04/03/2024 12:44 PM EST GLUCOSE METER, POINT OF CARE [facility] 04/03/2024 8:45 AM EST BNP (NT-PROBNP) Add-on 04/03/2024 6:54 AM EST BASIC METABOLIC PANEL Routine 04/03/2024 6:54 AM EST CBC Routine 04/03/2024 6:54 AM EST GLUCOSE METER, POINT OF CARE [facility] 04/02/2024 8:47 PM EST GLUCOSE METER, POINT OF CARE [facility] 04/02/2024 4:59 PM EST GLUCOSE METER, POINT OF CARE [facility] 04/02/2024 12:04 PM EST GLUCOSE METER, POINT OF CARE [facility] 04/02/2024 7:35 AM EST BASIC METABOLIC PANEL Routine 04/02/2024 5:56 AM EST CBC Routine 04/02/2024 5:56 AM EST GLUCOSE METER, POINT OF CARE [facility] 04/01/2024 9:22 PM EST GLUCOSE METER, POINT OF CARE [facility] 04/01/2024 4:25 PM EST GLUCOSE METER, POINT OF CARE K[facility] 04/01/2024 11:26 AM EST XR CHEST 1 VIEW Routine 04/01/2024 9:43 AM EST Other nonspecific abnormal finding of lung field BASIC METABOLIC PANEL Routine 04/01/2024 7:21 AM EST CBC Routine 04/01/2024 7:21 AM EST GLUCOSE METER, POINT OF CARE KAREN 04/01/2024 7:[address] HEAD/BRAIN WO CONTRAST Routine 04/01/2024 6:41 AM EST MRI BRAIN WITHOUT CONTRAST Routine 03/31/2024 11:43 PM EST PT INR Routine 03/31/2024 10:25 PM EST APTT Routine 03/31/2024 10:25 PM EST CBC Routine 03/31/2024 10:25 PM EST GLUCOSE METER, POINT OF CARE KAREN 03/31/2024 9:01 PM EST XR CHEST 1 VIEW Routine 03/31/2024 6:44 PM EST Centrilobular emphysema (HCC) GLUCOSE METER, POINT OF CARE KAREN 03/31/2024 5:07 PM EST GLUCOSE METER, POINT OF CARE KAREN 03/31/2024 11:[address] HEAD/BRAIN WO CONTRAST STAT 03/31/2024 8:27 AM EST GLUCOSE METER, POINT OF CARE KAREN 03/31/2024 5:15 AM EST TROPONIN T, HIGH SENSITIVITY Add-on 03/31/2024 4:24 AM EST LIPID PANEL WITH DIRECT LDL IF TG IS HIGH Routine 03/31/2024 4:24 AM EST BASIC METABOLIC PANEL Routine 03/31/2024 4:24 AM EST CBC Routine 03/31/2024 4:24 AM EST GLUCOSE METER, POINT OF CARE KAREN 03/30/2024 10:59 PM EST MRSA SCREEN, PCR Routine 03/30/2024 7:50 PM EST GLUCOSE METER, POINT OF CARE KAREN 03/30/2024 5:58 PM EST ECHO, COMPLETE (2D), TRANS-THORACIC Routine 03/30/2024 2:10 PM EST Stroke (HCC) GLUCOSE METER, POINT OF CARE KAREN 03/30/2024 11:59 AM EST HC ECG TRACING ONLY Routine 03/30/2024 1 1:46 AM EST Stroke (HCC) HEMOGLOBIN A1C Add-on 03/30/2024 10:41 AM EST PT INR STAT 03/30/2024 10:41 AM EST APTT STAT 03/30/2024 10:41 AM EST COMPREHENSIVE METABOLIC PANEL STAT 03/30/2024 10:07 AM EST PHOSPHORUS STAT 03/30/2024 10:07 AM EST CBC STAT 03/30/2024 10:07 AM EST MAGNESIUM STAT 03/30/2024 10:07 AM EST NEURO IR IMAGING Routine 03/30/2024 9:18 AM EST VERTEBRAL ARTERY CATHETER PLACEMENT 03/30/2024 3:45 AM EST Pain CAROTID (INTERNAL) ARTERY CATHETHER PLACEMENT 03/30/2024 3:45 AM EST Pain documented in this encounter Results * (ABNORMAL) GLUCOSE METER, POINT OF CARE (04/06/2024 11:50 AM EST) GLUCOSE - POCT 225(H) 70 - 120 mg/dL 04/06/2024 12:06 PM EST Varioptic Blood Whole blood specimen / Unknown 04/06/2024 11:50 AM EST 04/06/2024 12:06 PM EST Aries Yee MD LAB POINT OF CA RE TEST DOCKED DEVICE UNSOLICITED RESULTS Final Result Performing Organization Address City/[facility]/ZIP Co de Phone Number [facility] [address] [place] [address] * (ABNORMAL) GLUCOSE METER, POINT OF CARE (04/06/2024 7:18 AM EST) GLUCOSE - POCT 231(H) 70 - 120 mg/dL 04/06/2024 12:22 PM EST Varioptic Blood Whole blood specimen / Unknown 04/06/2024 7:18 AM EST 04/06/2024 12:22 PM EST us Aries Yee MD LAB POINT OF CA RE TEST DOCKED DEVICE UNSOLICITED RESULTS Final Result [facility] [address] [place] [address] * (ABNORMAL) GLUCOSE METER, POINT OF CARE (04/05/2024 9:28 PM EST) GLUCOSE - POCT 221(H) 70 - 120 mg/dL 04/05/2024 9:44 PM EST Varioptic Blood Whole blood specimen / Unknown 04/05/2024 9:28 PM EST 04/05/2024 9:44 PM EST Solitario Cordero MD LAB POI NT OF CARE TEST DOCKED DEVICE UNSOLICITED RESULTS Final Result [facility] [address] [place] [address] * (ABNORMAL) GLUCOSE METER, POINT OF CARE (04/05/2024 5:04 PM EST) GLUCOSE - POCT 215(H) 70 - 120 mg/dL 04/05/2024 5:09 PM EST Varioptic Blood Whole blood specimen / Unknown 04/05/2024 5:04 PM EST 04/05/2024 5:09 PM EST us Solitario Cordero MD LAB POI NT OF CARE TEST DOCKED DEVICE UNSOLICITED RESULTS Final Result Performing Organization Address [facility]/ZIP Co de Phone Number [facility] [address] [place] [address] * (ABNORMAL) GLUCOSE METER, POINT OF CARE (04/05/2024 12:17 PM EST) GLUCOSE - POCT 209(H) 70 - 120 mg/dL 04/05/2024 12:32 PM EST Varioptic Blood Whole blood specimen / Unknown 04/05/2024 12:17 PM EST 04/05/2024 12:32 PM EST Solitario Cordero MD LAB POI NT OF CARE TEST DOCKED DEVICE UNSOLICITED RESULTS Final Result [facility] [address] [place] [address] * (ABNORMAL) GLUCOSE METER, POINT OF CARE (04/05/2024 11:42 AM EST) GLUCOSE - POCT 239(H) 70 - 120 mg/dL 04/05/2024 12:03 PM EST Varioptic Blood Whole blood specimen / Unknown 04/05/2024 11:42 AM EST 04/05/2024 12:03 PM EST Solitario Cordero MD LAB POI NT OF CARE TEST DOCKED DEVICE UNSOLICITED RESULTS Final Result [facility] [address] [place] [address] * XR ABDOMEN 1 VIEW (04/05/2024 10:33 AM EST) Anatomical Region Laterality Modality Abdomen, Pelvis Digital Radiogra phy 04/05/2024 10:5 1 AM EST Impressions 04/05/2024 10:49 AM EST IMPRESSION Mild stool burden. Narrative 04/05/2024 10:49 AM EST EXAM XR ABDOMEN 1 VIEW-04/05/2024 10:33 am HISTORY constipation, abdominal pain COMPARISON 12/17/2010 radiograph TECHNIQUE Frontal view of the abdomen. FINDINGS Support apparatus:None Lumbar levoscoliosis with degenerative changes. Nonobstructive bowel gas pattern. Mild stool burden. Pelvic phleboliths. Procedure Note Garfield Jain II, MD - 04/05/2024 EXAM XR ABDOMEN 1 VIEW-04/05/2024 10:33 am HISTORY constipation, abdominal pain COMPARISON 12/17/2010 radiograph TECHNIQUE Frontal view of the abdomen. FINDINGS Support apparatus:None Lumbar levoscoliosis with degenerative changes. Nonobstructive bowel gaspattern. Mild stool burden. Pelvic phleboliths. IMPRESSION IMPRESSION Mild stool burden. Arian Russell DO RADIOLOGY (RAD GENERAL) Final Result * (ABNORMAL) GLUCOSE METER, POINT OF CARE (04/05/2024 7:41 AM EST) GLUCOSE - POCT 224(H) 70 - 120 mg/dL 04/05/2024 7:58 AM EST [facility] [place] Blood Whole blood specimen / Unknown 04/05/2024 7:41 AM EST 04/05/2024 7:58 AM EST Solitario Cordero MD LAB POI NT OF CARE TEST DOCKED DEVICE UNSOLICITED RESULTS Final Result [facility] [address] [place] [address] * (ABNORMAL) CBC (04/05/2024 6:50 AM EST) WBC 9.51 4.00 - 10.80 K/uL 04/05/2024 7:33 AM EST [facility] RBC 4.82 3.85 - 5.15 M/uL 04/05/2024 7:33 AM EST [facility] HGB 15.3 12.0 - 15.3 g/dL 04/05/2024 7:33 AM EST [facility] HCT 46.2(H) 36.0 - 45.2 % 04/05/2024 7:33 AM EST [facility] MCV 95.9 81.5 - 97.5 fL 04/05/2024 7:33 AM EST [facility] MCH 31.7 27.0 - 34.0 pg 04/05/2024 7:33 AM EST [facility] MCHC 33.1 32.0 - 36.0 g/dL 04/05/2024 7:33 AM EST [facility] RDW 13.2 11.5 - 15.5 % 04/05/2024 7:33 AM EST [facility] PLT 367 140 - 400 K/uL 04/05/2024 7:33 AM EST [facility] MPV 11.7 6.6 - 11.1 fL 04/05/2024 7:33 AM EST [facility] nRBCs 0 <=0 /100 WBCs 04/05/2024 7:33 AM EST [facility] Blood Venous blood specimen / Unknown Venipuncture / Unknown 04/05/2024 6:50 AM EST 04/05/2024 7:25 AM EST us Isidra Vitale McPhedran DO LAB BLOOD ORDER JASPER Final Result [facility] [address] [place] [address] * (ABNORMAL) BASIC METABOLIC PANEL (04/05/2024 6:50 AM EST) BUN 37(H) 6 - 20 mg/dL 04/05/2024 7:55 AM EST [facility] CREATININE 0.7 0.5 - 1.0 mg/dL 04/05/2024 7:55 AM EST [facility] EGFR >90 >=60 mL/min 04/05/2024 7:55 AM EST [facility] Comment:eGFR is calculated b ased on the CKD-EPI 2020 equation. SODIUM 136 135 - 146 mmol/L 04/05/2024 7:55 AM EST [facility] POTASSIUM 04/05/2024 7:55 AM EST [facility] Comment:Specimen too hemolyz ed. Reorder if needed. CHLORIDE 102 98 - 107 mmol/L 04/05/2024 7:55 AM EST [facility] CO2 04/05/2024 7:55 AM EST [facility] Comment:Specimen too hemolyz ed. Reorder if needed. ANION GAP 04/05/2024 7:55 AM EST [facility] Comment:Not calculated. GLUCOSE 203(H) 70 - 120 mg/dL 04/05/2024 7:55 AM EST [facility] CALCIUM 8.7 8.4 - 10.2 mg/dL 04/05/2024 7:55 AM EST [facility] Blood Venous blood specimen / Unknown Venipuncture / Unknown 04/05/2024 6:50 AM EST 04/05/2024 7:25 AM EST Isidra Santillan DO LAB BLOOD ORDER JASPER Final Result [facility] [address] [place] [address] * (ABNORMAL) GLUCOSE METER, POINT OF CARE (04/04/2024 9:58 PM EST) GLUCOSE - POCT 244(H) 70 - 120 mg/dL 04/04/2024 10:04 PM EST [facility] Blood Whole blood specimen / Unknown 04/04/2024 9:58 PM EST 04/04/2024 10:04 PM EST us Solitario Cordero MD LAB POI NT OF CARE TEST DOCKED DEVICE UNSOLICITED RESULTS Final Result [facility] [address] [place] [address] * (ABNORMAL) GLUCOSE METER, POINT OF CARE (04/04/2024 4:50 PM EST) GLUCOSE - POCT 189(H) 70 - 120 mg/dL 04/04/2024 5:05 PM EST [facility] Blood Whole blood specimen / Unknown 04/04/2024 4:50 PM EST 04/04/2024 5:05 PM EST us Solitario Cordero MD LAB POI NT OF CARE TEST DOCKED DEVICE UNSOLICITED RESULTS Final Result Performing Organization Address City/[facility]/ZIP Co de Phone Number [facility] [address] [place] [address] * (ABNORMAL) GLUCOSE METER, POINT OF CARE (04/04/2024 12:20 PM EST) GLUCOSE - POCT 233(H) 70 - 120 mg/dL 04/04/2024 12:30 PM EST [facility] Blood Whole blood specimen / Unknown 04/04/2024 12:20 PM EST 04/04/2024 12:30 PM EST us Solitario Cordero MD LAB POI NT OF CARE TEST DOCKED DEVICE UNSOLICITED RESULTS Final Result [facility] [address] [place] [address] * (ABNORMAL) CBC (04/04/2024 10:16 AM EST) WBC 12.11(H) 4.00 - 10.80 K/uL 04/04/2024 10:38 AM EST [facility] RBC 4.75 3.85 - 5.15 M/uL 04/04/2024 10:38 AM EST [facility] HGB 14.7 12.0 - 15.3 g/dL 04/04/2024 10:38 AM EST [facility] HCT 45.7(H) 36.0 - 45.2 % 04/04/2024 10:38 AM EST [facility] MCV 96.2 81.5 - 97.5 fL 04/04/2024 10:38 AM EST [facility] MCH 30.9 27.0 - 34.0 pg 04/04/2024 10:38 AM EST [facility] MCHC 32.2 32.0 - 36.0 g/dL 04/04/2024 10:38 AM EST [facility] RDW 13.0 11.5 - 15.5 % 04/04/2024 10:38 AM EST [facility] PLT 390 140 - 400 K/uL 04/04/2024 10:38 AM EST [facility] MPV 11.6 6.6 - 11.1 fL 04/04/2024 10:38 AM EST [facility] nRBCs 0 <=0 /100 WBCs 04/04/2024 10:38 AM EST [facility] Blood Venous blood specimen / Unknown Venipuncture / Unknown 04/04/2024 10:16 AM EST 04/04/2024 10:30 AM EST us Arian Russell DO LAB BLOOD ORDERABLES Final Re sult LABORATORY [facility] [address] [place] [address] * (ABNORMAL) GLUCOSE METER, POINT OF CARE (04/04/2024 7:50 AM EST) [facility] GLUCOSE - POCT 225(H) 70 - 120 mg/dL 04/04/2024 8:16 AM EST [facility] Blood Whole blood specimen / Unknown 04/04/2024 7:50 AM EST 04/04/2024 8:16 AM EST us Solitario Cordero MD LAB POI NT OF CARE TEST DOCKED DEVICE UNSOLICITED RESULTS Final Result [facility] [address] [place] [address] * (ABNORMAL) BASIC METABOLIC PANEL (04/04/2024 7:23 AM EST) BUN 34(H) 6 - 20 mg/dL 04/04/2024 7:51 AM EST [facility] CREATININE 0.7 0.5 - 1.0 mg/dL 04/04/2024 7:51 AM EST [facility] EGFR 88 >=60 mL/min 04/04/2024 7:51 AM EST [facility] Comment:eGFR is calculated b ased on the CKD-EPI 2020 equation. SODIUM 136 135 - 146 mmol/L 04/04/2024 7:51 AM EST [facility] POTASSIUM 4.7 3.5 - 5.1 mmol/L 04/04/2024 7:51 AM EST [facility] Comment:Results may be false ly elevated due to hemolysis. CHLORIDE 102 98 - 107 mmol/L 04/04/2024 7:51 AM EST [facility] CO2 20(L) 22 - 32 mmol/L 04/04/2024 7:51 AM EST [facility] ANION GAP 14 7 - 15 mmol/L 04/04/2024 7:51 AM EST [facility] GLUCOSE 213(H) 70 - 120 mg/dL 04/04/2024 7:51 AM EST [facility] CALCIUM 8.8 8.4 - 10.2 mg/dL 04/04/2024 7:51 AM EST [facility] Blood Venous blood specimen / Unknown Venipuncture / Unknown 04/04/2024 7:23 AM EST 04/04/2024 7:28 AM EST us Arian Russell DO LAB BLOOD ORDERABLES Final Re sult [facility] [address] [place] [address] * (ABNORMAL) GLUCOSE METER, POINT OF CARE (04/03/2024 9:08 PM EST) Pathologist [facility] GLUCOSE - POCT 233(H) 70 - 120 mg/dL 04/03/2024 9:20 PM EST [facility] Blood Whole blood specimen / Unknown 04/03/2024 9:08 PM EST 04/03/2024 9:20 PM EST us Solitario Cordero MD LAB POI NT OF CARE TEST DOCKED DEVICE UNSOLICITED RESULTS Final Result [facility] [address] [place] [address] * (ABNORMAL) GLUCOSE METER, POINT OF CARE (04/03/2024 4:53 PM EST) GLUCOSE - POCT 246(H) 70 - 120 mg/dL 04/03/2024 6:04 PM EST [facility] Blood Whole blood specimen / Unknown 04/03/2024 4:53 PM EST 04/03/2024 6:04 PM EST us Solitario Cordero MD LAB POI NT OF CARE TEST DOCKED DEVICE UNSOLICITED RESULTS Final Result Performing Organization Address City/[facility]/ZIP Co de Phone Number [facility] [address] [place] [address] * (ABNORMAL) GLUCOSE METER, POINT OF CARE (04/03/2024 12:44 PM EST) GLUCOSE - POCT 210(H) 70 - 120 mg/dL 04/03/2024 12:53 PM EST [facility] Blood Whole blood specimen / Unknown 04/03/2024 12:44 PM EST 04/03/2024 12:53 PM EST us Solitario Cordero MD LAB POI NT OF CARE TEST DOCKED DEVICE UNSOLICITED RESULTS Final Result Performing Organization Address City/[facility]/ZIP Co de Phone Number [facility] [address] [place] [address] * (ABNORMAL) GLUCOSE METER, POINT OF CARE (04/03/2024 8:45 AM EST) GLUCOSE - POCT 167(H) 70 - 120 mg/dL 04/03/2024 8:48 AM EST [facility] Blood Whole blood specimen / Unknown 04/03/2024 8:45 AM EST 04/03/2024 8:47 AM EST us Solitario Cordero MD LAB POI NT OF CARE TEST DOCKED DEVICE UNSOLICITED RESULTS Final Result [facility] [address] [place] [address] * (ABNORMAL) BNP, NT-PRO (04/03/2024 6:54 AM EST) BNP, NT-Pro 2,058(H) <300 pg/mL 04/03/2024 10:12 AM EST LABORATORY [facility] Blood Venous blood specimen / Unknown Venipuncture / Unknown 04/03/2024 6:54 AM EST 04/03/2024 7:23 AM EST Narrative LABORATORY [facility] - 04/03/2024 10:12 AM EST Exclude Heart Failure: <300 pg/mL Diagnose Heart Failure: Age <50 yr: >450 pg/mL 50-75 yr: >900 pg/mL >75 yr: >1800 pg/mL GFR is 30-59 mL/min: >1200 pg/mL or Age-adjusted values GFR <30 mL/min: do not use, not reliable Prognostic threshold: 1000 pg/mL us Arian Russell DO LAB BLOOD ORDERABLES Final Re sult LABORATORY [facility] [address] [place] [address] * CBC (04/03/2024 6:54 AM EST) WBC 7.94 4.00 - 10.80 K/uL 04/03/2024 7:53 AM EST LABORATORY [facility] RBC 4.37 3.85 - 5.15 M/uL 04/03/2024 7:53 AM EST [facility] HGB 14.0 12.0 - 15.3 g/dL 04/03/2024 7:53 AM EST [facility] HCT 42.0 36.0 - 45.2 % 04/03/2024 7:53 AM EST [facility] MCV 96.1 81.5 - 97.5 fL 04/03/2024 7:53 AM EST [facility] MCH 32.0 27.0 - 34.0 pg 04/03/2024 7:53 AM EST [facility] MCHC 33.3 32.0 - 36.0 g/dL 04/03/2024 7:53 AM EST [facility] RDW 12.9 11.5 - 15.5 % 04/03/2024 7:53 AM EST [facility] PLT 246 140 - 400 K/uL 04/03/2024 7:53 AM EST [facility] MPV 12.3 6.6 - 11.1 fL 04/03/2024 7:53 AM EST [facility] nRBCs 0 <=0 /100 WBCs 04/03/2024 7:53 AM EST [facility] Blood Venous blood specimen / Unknown Venipuncture / Unknown 04/03/2024 6:54 AM EST 04/03/2024 7:25 AM EST us Arianshravan Mccain Drew HUNTER LAB BLOOD ORDERABLES Final Re sult [facility] [address] [place] [address] * (ABNORMAL) BASIC METABOLIC PANEL (04/03/2024 6:54 AM EST) BUN 26(H) 6 - 20 mg/dL 04/03/2024 7:51 AM EST [facility] CREATININE 0.7 0.5 - 1.0 mg/dL 04/03/2024 7:51 AM EST [facility] EGFR 90 >=60 mL/min 04/03/2024 7:51 AM EST [facility] Comment:eGFR is calculated b ased on the CKD-EPI 2020 equation. SODIUM 137 135 - 146 mmol/L 04/03/2024 7:51 AM EST [facility] POTASSIUM 4.1 3.5 - 5.1 mmol/L 04/03/2024 7:51 AM EST [facility] CHLORIDE 103 98 - 107 mmol/L 04/03/2024 7:51 AM EST [facility] CO2 22 22 - 32 mmol/L 04/03/2024 7:51 AM EST [facility] ANION GAP 12 7 - 15 mmol/L 04/03/2024 7:51 AM EST [facility] GLUCOSE 180(H) 70 - 120 mg/dL 04/03/2024 7:51 AM EST [facility] CALCIUM 8.3(L) 8.4 - 10.2 mg/dL 04/03/2024 7:51 AM EST [facility] Blood Venous blood specimen / Unknown Venipuncture / Unknown 04/03/2024 6:54 AM EST 04/03/2024 7:23 AM EST us Arain Russell DO LAB BLOOD ORDERABLES Final Re sult [facility] [address] [place] [address] * (ABNORMAL) GLUCOSE METER, POINT OF CARE (04/02/2024 8:47 PM EST) GLUCOSE - POCT 233(H) 70 - 120 mg/dL 04/02/2024 9:08 PM EST [facility] Blood Whole blood specimen / Unknown 04/02/2024 8:47 PM EST 04/02/2024 9:08 PM EST us Solitario Cordero MD LAB POI NT OF CARE TEST DOCKED DEVICE UNSOLICITED RESULTS Final Result [facility] [address] [place] [address] * (ABNORMAL) GLUCOSE METER, POINT OF CARE (04/02/2024 4:59 PM EST) GLUCOSE - POCT 170(H) 70 - 120 mg/dL 04/02/2024 5:09 PM EST [facility] Blood Whole blood specimen / Unknown 04/02/2024 4:59 PM EST 04/02/2024 5:09 PM EST us Solitario Cordero MD LAB POI NT OF CARE TEST DOCKED DEVICE UNSOLICITED RESULTS Final Result [facility] [address] [place] [address] * (ABNORMAL) GLUCOSE METER, POINT OF CARE (04/02/2024 12:04 PM EST) GLUCOSE - POCT 224(H) 70 - 120 mg/dL 04/02/2024 12:16 PM EST [facility] Blood Whole blood specimen / Unknown 04/02/2024 12:04 PM EST 04/02/2024 12:16 PM EST us Solitario Cordero MD LAB POI NT OF CARE TEST DOCKED DEVICE UNSOLICITED RESULTS Final Result Performing Organization Address City/[facility]/ZIP Co de Phone Number [facility] [address] [place] [address] * (ABNORMAL) GLUCOSE METER, POINT OF CARE (04/02/2024 7:35 AM EST) GLUCOSE - POCT 198(H) 70 - 120 mg/dL 04/02/2024 7:38 AM EST [facility] Blood Whole blood specimen / Unknown 04/02/2024 7:35 AM EST 04/02/2024 7:38 AM EST us Solitario Cordero MD LAB POI NT OF CARE TEST DOCKED DEVICE UNSOLICITED RESULTS Final Result [facility] [address] [place] [address] * CBC (04/02/2024 5:56 AM EST) WBC 9.18 4.00 - 10.80 K/uL 04/02/2024 6:32 AM EST [facility] RBC 4.38 3.85 - 5.15 M/uL 04/02/2024 6:32 AM EST [facility] HGB 13.8 12.0 - 15.3 g/dL 04/02/2024 6:32 AM EST [facility] HCT 41.3 36.0 - 45.2 % 04/02/2024 6:32 AM EST [facility] MCV 94.3 81.5 - 97.5 fL 04/02/2024 6:32 AM EST [facility] MCH 31.5 27.0 - 34.0 pg 04/02/2024 6:32 AM EST [facility] MCHC 33.4 32.0 - 36.0 g/dL 04/02/2024 6:32 AM EST [facility] RDW 12.5 11.5 - 15.5 % 04/02/2024 6:32 AM EST [facility] PLT 276 140 - 400 K/uL 04/02/2024 6:32 AM EST [facility] MPV 11.6 6.6 - 11.1 fL 04/02/2024 6:32 AM EST [facility] nRBCs 0 <=0 /100 WBCs 04/02/2024 6:32 AM EST [facility] Blood Venous blood specimen / Unknown Venipuncture / Unknown 04/02/2024 5:56 AM EST 04/02/2024 6:17 AM EST us Arian Russell DO LAB BLOOD ORDERABLES Final Re sult [facility] [address] [place] [address] * (ABNORMAL) BASIC METABOLIC PANEL (04/02/2024 5:56 AM EST) BUN 17 6 - 20 mg/dL 04/02/2024 6:47 AM EST [facility] CREATININE 0.6 0.5 - 1.0 mg/dL 04/02/2024 6:47 AM EST [facility] EGFR >90 >=60 mL/min 04/02/2024 6:47 AM EST [facility] Comment:eGFR is calculated b ased on the CKD-EPI 2020 equation. SODIUM 135 135 - 146 mmol/L 04/02/2024 6:47 AM EST [facility] POTASSIUM 4.5 3.5 - 5.1 mmol/L 04/02/2024 6:47 AM EST [facility] CHLORIDE 104 98 - 107 mmol/L 04/02/2024 6:47 AM EST [facility] CO2 20(L) 22 - 32 mmol/L 04/02/2024 6:47 AM EST [facility] ANION GAP 11 7 - 15 mmol/L 04/02/2024 6:47 AM EST [facility] GLUCOSE 184(H) 70 - 120 mg/dL 04/02/2024 6:47 AM EST [facility] CALCIUM 8.3(L) 8.4 - 10.2 mg/dL 04/02/2024 6:47 AM EST [facility] Blood Venous blood specimen / Unknown Venipuncture / Unknown 04/02/2024 5:56 AM EST 04/02/2024 6:17 AM EST us Arian Russell DO LAB BLOOD ORDERABLES Final Re sult [facility] [address] [place] [address] * (ABNORMAL) GLUCOSE METER, POINT OF CARE (04/01/2024 9:22 PM EST) [facility] GLUCOSE - POCT 146(H) 70 - 120 mg/dL 04/01/2024 9:24 PM EST [facility] Blood Whole blood specimen / Unknown 04/01/2024 9:22 PM EST 04/01/2024 9:24 PM EST us Solitario Cordero MD LAB POI NT OF CARE TEST DOCKED DEVICE UNSOLICITED RESULTS Final Result [facility] [address] [place] [address] * (ABNORMAL) GLUCOSE METER, POINT OF CARE (04/01/2024 4:25 PM EST) GLUCOSE - POCT 205(H) 70 - 120 mg/dL 04/01/2024 4:44 PM EST [facility] Blood Whole blood specimen / Unknown 04/01/2024 4:25 PM EST 04/01/2024 4:44 PM EST us Solitario Cordero MD LAB POI NT OF CARE TEST DOCKED DEVICE UNSOLICITED RESULTS Final Result Performing Organization Address City/[facility]/ZIP Co de Phone Number [address] [address] * (ABNORMAL) GLUCOSE METER, POINT OF CARE (04/01/2024 11:26 AM EST) GLUCOSE - POCT 193(H) 70 - 120 mg/dL 04/01/2024 11:34 AM EST [facility] Blood Whole blood specimen / Unknown 04/01/2024 11:26 AM EST 04/01/2024 11:34 AM EST us Solitario Cordero MD LAB POI NT OF CARE TEST DOCKED DEVICE UNSOLICITED RESULTS Final Result Performing Organization Address City/[facility] Co de Phone Number [address] [address] * XR CHEST 1 VIEW (04/01/2024 9:43 AM EST) Anatomical Region Laterality Modality Chest Computed Radiogr aphy 04/01/2024 10:0 6 AM EST Impressions 04/01/2024 10:37 AM EST IMPRESSION Similar left basilar opacities, may represent atelectasis, aspiration or pneumonia. I have personally reviewed this examination and agree with the resident/fellow physician's interpretation. Narrative 04/01/2024 10:37 AM EST EXAM XR CHEST 1 VIEW-04/01/2024 9:43 am HISTORY concern for aspiration pneumonia COMPARISON Chest radiograph 03/31/2024, CT chest 11/24/2023 TECHNIQUE AP view of the chest. FINDINGS Bilateral coarsened lung markings and similar left lower basilar ground-glass opacities are again seen, without significant change compared to 03/31/2024. There is no pleural effusion or pneumothorax. The pulmonary vasculature and cardiomediastinal silhouette are within normal limits. Degenerative osseous changes. No acute osseous abnormality. Procedure Note Kris Martel MD - 04/01/2024 EXAM XR CHEST 1 VIEW-04/01/2024 9:43 am HISTORY concern for aspiration pneumonia COMPARISON Chest radiograph 03/31/2024, CT chest 11/24/2023 TECHNIQUE AP view of the chest. FINDINGS Bilateral coarsened lung markings and similar left lower basilarground-glass opacities are again seen, without significant change comparedto 03/31/2024. There is no pleural effusion or pneumothorax. Thepulmonary vasculature and cardiomediastinal silhouette are within normallimits. Degenerative osseous changes. No acute osseous abnormality. IMPRESSION IMPRESSION Similar left basilar opacities, may represent atelectasis, aspiration orpneumonia. I have personally reviewed this examination and agree with the resident/fellow physician's interpretation. us Arian Russell DO RADIOLOGY (RAD GENERAL) Final Result * CBC (04/01/2024 7:21 AM EST) WBC 8.55 4.00 - 10.80 K/uL 04/01/2024 7:42 AM EST [facility] RBC 4.02 3.85 - 5.15 M/uL 04/01/2024 7:42 AM EST [facility] HGB 12.6 12.0 - 15.3 g/dL 04/01/2024 7:42 AM EST [facility] HCT 37.2 36.0 - 45.2 % 04/01/2024 7:42 AM EST [facility] MCV 92.5 81.5 - 97.5 fL 04/01/2024 7:42 AM EST [facility] MCH 31.3 27.0 - 34.0 pg 04/01/2024 7:42 AM EST [facility] MCHC 33.9 32.0 - 36.0 g/dL 04/01/2024 7:42 AM EST [facility] RDW 12.7 11.5 - 15.5 % 04/01/2024 7:42 AM EST [facility] PLT 236 140 - 400 K/uL 04/01/2024 7:42 AM EST [facility] MPV 11.8 6.6 - 11.1 fL 04/01/2024 7:42 AM EST [facility] nRBCs 0 <=0 /100 WBCs 04/01/2024 7:42 AM EST [facility] Blood Capillary blood specimen / Unknown Capillary / Unknown 04/01/2024 7:21 AM EST 04/01/2024 7:26 AM EST us Arian Russell DO LAB BLOOD ORDERABLES Final Re sult [facility] [address] [place] [address] * (ABNORMAL) BASIC METABOLIC PANEL (04/01/2024 7:21 AM EST) BUN 16 6 - 20 mg/dL 04/01/2024 7:55 AM EST [facility] CREATININE 0.7 0.5 - 1.0 mg/dL 04/01/2024 7:55 AM EST [facility] EGFR >90 >=60 mL/min 04/01/2024 7:55 AM EST [facility] Comment:eGFR is calculated b ased on the CKD-EPI 2020 equation. SODIUM 137 135 - 146 mmol/L 04/01/2024 7:55 AM EST [facility] POTASSIUM 4.5 3.5 - 5.1 mmol/L 04/01/2024 7:55 AM EST [facility] CHLORIDE 106 98 - 107 mmol/L 04/01/2024 7:55 AM EST [facility] CO2 20(L) 22 - 32 mmol/L 04/01/2024 7:55 AM EST [facility] ANION GAP 11 7 - 15 mmol/L 04/01/2024 7:55 AM EST [facility] GLUCOSE 198(H) 70 - 120 mg/dL 04/01/2024 7:55 AM EST [facility] CALCIUM 8.2(L) 8.4 - 10.2 mg/dL 04/01/2024 7:55 AM EST [facility] Blood Capillary blood specimen / Unknown Capillary / Unknown 04/01/2024 7:21 AM EST 04/01/2024 7:26 AM EST us Arian Mccain Drew HUNTER LAB BLOOD ORDERABLES Final Re sult [facility] [address] [place] [address] * (ABNORMAL) GLUCOSE METER, POINT OF CARE (04/01/2024 7:19 AM EST) GLUCOSE - POCT 191(H) 70 - 120 mg/dL 04/01/2024 7:32 AM EST [employer] [facility] Blood Whole blood specimen / Unknown 04/01/2024 7:19 AM EST 04/01/2024 7:32 AM EST us Solitario Cordero MD LAB POI NT OF CARE TEST DOCKED DEVICE UNSOLICITED RESULTS Final Result Performing Organization Address City/[facility]/ZIP Co de Phone Number [facility] [address] [place] [address] * CT HEAD/BRAIN WO CONTRAST (04/01/2024 6:41 AM EST) Anatomical Region Laterality Modality Head Computed Tomogra phy 04/01/2024 8:08 AM EST Impressions 04/01/2024 8:06 AM EST IMPRESSION 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 Narrative 04/01/2024 8:[address] HEAD/BRAIN WO CONTRAST - 04/01/2024 6:41 am HISTORY interval changes TECHNIQUE Axial scans were obtained through the brain using standard protocol. Coronal and sagittal reconstructions were performed. COMPARISON CT head, MRI brain 03/31/2024 FINDINGS Evolving left middle and anterior cerebral artery distribution infarcts as noted on prior exams, with hypoattenuation and loss of cornelius-white differentiation. There is local mass effect with effacement of sulci. There is some petechial hemorrhage particularly in the sylvian cortex but no large hemorrhage identified. No midline shift or downward herniation. No hydrocephalus. Procedure Note Yumiko Vazquez MD - 04/01/[address] HEAD/BRAIN WO CONTRAST - 04/01/2024 6:41 am HISTORY interval changes TECHNIQUE Axial scans were obtained through the brain using standard protocol.Coronal and sagittal reconstructions were performed. COMPARISON CT head, MRI brain 03/31/2024 FINDINGS Evolving left middle and anterior cerebral artery distribution infarcts asnoted on prior exams, with hypoattenuation and loss of cornelius-whitedifferentiation. There is local mass effect with effacement of sulci.There is some petechial hemorrhage particularly in the sylvian cortex butno large hemorrhage identified. No midline shift or downward herniation.No hydrocephalus. IMPRESSION IMPRESSION Evolving left MCA and CORINA distribution infarcts not significantly changed,no new abnormality identified. us Lamjunior Son MD RAD CT Final R esult * MRI BRAIN WITHOUT CONTRAST (03/31/2024 11:43 PM EST) Anatomical Region Laterality Modality Neuro, Head Magnetic Resonan ce 04/01/2024 12:3 8 AM EST Impressions 04/01/2024 12:36 AM EST IMPRESSION Scattered areas of acute/subacute infarcts throughout the left MCA territory with predominantly petechial type hemorrhagic transformation. No significant mass effect. Short-term follow-up CT is recommended. Narrative 04/01/2024 12:36 AM EST EXAM BRAIN MRI WITHOUT CONTRAST-03/31/2024 HISTORY Left M1 occlusion status post thrombectomy. COMPARISON Outside CTA head 03/30/2024. TECHNIQUE Multiplanar, multisequence MRI of the brain was performed without intravenous contrast. FINDINGS Scattered areas of acute/subacute infarcts are seen within the left MCA territory with areas of parenchymal hemorrhagic transformation throughout the infarct territory however with no significant mass effect. Age-appropriate generalized parenchymal atrophy of the brain. Scattered foci of T2 signal abnormality in the bilateral periventricular and subcortical white matter likely reflect the sequela of chronic microvascular ischemia in this age group. Intraorbital contents are unremarkable. No significant paranasal sinus disease. Bilateral mastoid air cells are clear. Procedure Note Ad Vu MD - 04/01/2024 EXAM BRAIN MRI WITHOUT CONTRAST-03/31/2024 HISTORY Left M1 occlusion status post thrombectomy. COMPARISON Outside CTA head 03/30/2024. TECHNIQUE Multiplanar, multisequence MRI of the brain was performed withoutintravenous contrast. FINDINGS Scattered areas of acute/subacute infarcts are seen within the left MCAterritory with areas of parenchymal hemorrhagic transformation throughoutthe infarct territory however with no significant mass effect. Age-appropriate generalized parenchymal atrophy of the brain. Scattered foci of T2 signal abnormality in the bilateral periventricularand subcortical white matter likely reflect the sequela of chronicmicrovascular ischemia in this age group. Intraorbital contents are unremarkable. No significant paranasal sinusdisease. Bilateral mastoid air cells are clear. IMPRESSION IMPRESSION Scattered areas of acute/subacute infarcts throughout the left MCAterritory with predominantly petechial type hemorrhagic transformation. Nosignificant mass effect. Short-term follow-up CT is recommended. Georgette Dick MD RAD MRI-MRA Final Result * APTT (03/31/2024 10:25 PM EST) aPTT 27 21 - 38 seconds 03/31/2024 11:05 PM EST LABORATORY [facility] Blood Venous blood specimen / Unknown Venipuncture / Unknown 03/31/2024 10:25 PM EST 03/31/2024 10:34 PM EST [facility] LABORATORY [facility] - 03/31/2024 11:05 PM EST Anticoagulation may affect testing. Refer to [employer] [facility] Test Catalog for a list of effects. Juliette Son MD LAB BLOOD ORDERABLES Fi nal Result LABORATORY [facility] [address] [place] [address] * PT INR (03/31/2024 10:25 PM EST) Prothrombin Time 13.9 11.6 - 15.2 seconds 03/31/2024 11:04 PM EST LABORATORY [facility] [place] INR 1.1 0.8 - 1.2 03/31/2024 11:04 PM EST LABORATORY [facility] [place] Blood Venous blood specimen / Unknown Venipuncture / Unknown 03/31/2024 10:25 PM EST 03/31/2024 10:34 PM EST Narrative LABORATORY [facility] - 03/31/2024 11:04 PM EST Warfarin Therapy INR: 2.0-3.0 conventional anticoagulation INR: 2.5-3.5 high intensity anticoagulation Lamjunior Son MD LAB BLOOD ORDERABLES Fi nal Result LABORATORY [facility] [address] [place] [address] * CBC (03/31/2024 10:25 PM EST) [facility] WBC 9.64 4.00 - 10.80 K/uL 03/31/2024 10:42 PM EST LAB[facility]ATORY [facility] RBC 3.90 3.85 - 5.15 M/uL 03/31/2024 10:42 PM EST LABORATORY [facility] HGB 12.4 12.0 - 15.3 g/dL 03/31/2024 10:42 PM EST LAB[facility]ATORY [facility] HCT 36.7 36.0 - 45.2 % 03/31/2024 10:42 PM EST LAB[facility] MCV 94.1 81.5 - 97.5 fL 03/31/2024 10:42 PM EST LAB[facility] MCH 31.8 27.0 - 34.0 pg 03/31/2024 10:42 PM EST LAB[facility] MCHC 33.8 32.0 - 36.0 g/dL 03/31/2024 10:42 PM EST [facility] RDW 12.9 11.5 - 15.5 % 03/31/2024 10:42 PM EST LAB[facility]ATORY [facility] PLT 243 140 - 400 K/uL 03/31/2024 10:42 PM EST LAB[facility]ATORY [facility] MPV 10.9 6.6 - 11.1 fL 03/31/2024 10:42 PM EST LAB[facility]ORY [facility] nRBCs 0 <=0 /100 WBCs 03/31/2024 10:42 PM EST [facility]ATORY [facility] Blood Venous blood specimen / Unknown Venipuncture / Unknown 03/31/2024 10:25 PM EST 03/31/2024 10:34 PM EST Lamees Percy Son MD LAB BLOOD ORDERABLES Fi nal Result LABORATORY [facility] [address] [place] [address] * (ABNORMAL) GLUCOSE METER, POINT OF CARE (03/31/2024 9:01 PM EST) GLUCOSE - POCT 180(H) 70 - 120 mg/dL 03/31/2024 9:03 PM EST [facility] [employer] [facility] Blood Whole blood specimen / Unknown 03/31/2024 9:01 PM EST 03/31/2024 9:03 PM EST us Solitario Cordero MD LAB POI NT OF CARE TEST DOCKED DEVICE UNSOLICITED RESULTS Final Result Performing Organization Address City/[facility] Co de Phone Number [facility] [address] [place] [address] * XR CHEST 1 VIEW (03/31/2024 6:44 PM EST) Anatomical Region Laterality Modality Chest Computed Radiogr aphy 03/31/2024 9:07 PM EST Impressions 03/31/2024 9:04 PM EST IMPRESSION Slightly prominent left mid and lower lung field airspace opacities are indeterminate for atelectasis or infection. Narrative 03/31/2024 9:04 PM EST EXAM XR CHEST 1 VIEW - 03/31/2024 6:44 pm HISTORY Concern for pneumonia COMPARISON Chest radiograph 08/11/2014. TECHNIQUE Portable upright AP view of the chest was obtained. FINDINGS Catheters: None Tubes: None Foreign bodies: None seen Slightly prominent left mid and lower lung field airspace opacities. Cardiomediastinal silhouette and pulmonary vasculature are within normal limits. Degenerative changes of spine. Pleural effusion. No pneumothorax. Procedure Note Ad Vu MD - 03/31/2024 EXAM XR CHEST 1 VIEW - 03/31/2024 6:44 pm HISTORY Concern for pneumonia COMPARISON Chest radiograph 08/11/2014. TECHNIQUE Portable upright AP view of the chest was obtained. FINDINGS Catheters: None Tubes: None Foreign bodies: None seen Slightly prominent left mid and lower lung field airspace opacities.Cardiomediastinal silhouette and pulmonary vasculature are within normallimits. Degenerative changes of spine. Pleural effusion. Nopneumothorax. IMPRESSION IMPRESSION Slightly prominent left mid and lower lung field airspace opacities areindeterminate for atelectasis or infection. Juliette Son MD RADIOLOGY ([facility]) Final Result * (ABNORMAL) GLUCOSE METER, POINT OF CARE (03/31/2024 5:07 PM EST) GLUCOSE - POCT 168(H) 70 - 120 mg/dL 03/31/2024 5:10 PM EST [facility] Blood Whole blood specimen / Unknown 03/31/2024 5:07 PM EST 03/31/2024 5:10 PM EST Solitario Cordero MD LAB POI NT OF CARE TEST DOCKED DEVICE UNSOLICITED RESULTS Final Result [facility] [address] [place] [address] * (ABNORMAL) GLUCOSE METER, POINT OF CARE (03/31/2024 11:51 AM EST) GLUCOSE - POCT 222(H) 70 - 120 mg/dL 03/31/2024 4:41 PM EST [facility] Blood Whole blood specimen / Unknown 03/31/2024 11:51 AM EST 03/31/2024 4:41 PM EST Solitario Cordero MD LAB POI NT OF CARE TEST DOCKED DEVICE UNSOLICITED RESULTS Final Result [facility] [address] [place] [address] * CT HEAD/BRAIN WO CONTRAST (03/31/2024 8:27 AM EST) Anatomical Region Laterality Modality Head Computed Tomogra phy 03/31/2024 9:14 AM EST Impressions 03/31/2024 9:35 AM EST IMPRESSION: Evolving large early subacute infarction involving the left CORINA and MCA territories without significantly increased mass effect or evidence of hemorrhagic transformation. No other areas suspicious for acute infarction identified. Chronic microvascular white matter disease and parenchymal volume loss. Additional findings as above. I have personally reviewed this examination and agree with the resident/fellow physician's interpretation. Narrative 03/31/2024 9:35 AM EST EXAM: CT HEAD WITHOUT CONTRAST - 03/31/2024 8:27 am HISTORY: Follow-up status post mechanical thrombectomy on 03/30/2024 TECHNIQUE: CT of the head was performed without intravenous contrast. Multiplanar reformats were generated. COMPARISON: CT head 03/30/2024. CTA neck 03/30/2024. FINDINGS: Motion degraded examination. Progressive delineation of an evolving early subacute left CORINA and MCA infarction predominantly involving portions of the left anterior cerebral hemisphere. Stable associated mass effect without evidence of hemorrhagic transformation. No other areas suspicious for acute infarction identified. Patchy and confluent areas of low attenuation throughout the periventricular, subcortical, and deep white matter which are nonspecific but likely related to chronic microvascular disease. Diffuse parenchymal volume loss with proportionate ventricular and sulcal prominence. No hydrocephalus. No extra-axial fluid collections. Intracranial atherosclerotic calcifications. Mild mucosal thickening scattered throughout the ethmoid air cells. The paranasal sinuses are otherwise grossly clear. The mastoid air cells are clear. Orbits appear unremarkable. Hyperostosis frontalis internus. Procedure Note Mike Miller MD - 03/31/2024 EXAM: CT HEAD WITHOUT CONTRAST - 03/31/2024 8:27 am HISTORY: Follow-up status post mechanical thrombectomy on 03/30/2024 TECHNIQUE: CT of the head was performed without intravenous contrast. Multiplanarreformats were generated. COMPARISON: CT head 03/30/2024. CTA neck 03/30/2024. FINDINGS: Motion degraded examination. Progressive delineation of an evolving early subacute left CORINA and MCAinfarction predominantly involving portions of the left anterior cerebralhemisphere. Stable associated mass effect without evidence of hemorrhagictransformation. No other areas suspicious for acute infarction identified. Patchy andconfluent areas of low attenuation throughout the periventricular,subcortical, and deep white matter which are nonspecific but likelyrelated to chronic microvascular disease. Diffuse parenchymal volume loss with proportionate ventricular and sulcalprominence. No hydrocephalus. No extra-axial fluid collections.Intracranial atherosclerotic calcifications. Mild mucosal thickening scattered throughout the ethmoid air cells. Theparanasal sinuses are otherwise grossly clear. The mastoid air cells areclear. Orbits appear unremarkable. Hyperostosis frontalis internus. IMPRESSION IMPRESSION: Evolving large early subacute infarction involving the left CORINA and MCAterritories without significantly increased mass effect or evidence ofhemorrhagic transformation. No other areas suspicious for acuteinfarction identified. Chronic microvascular white matter disease and parenchymal volume loss.Additional findings as above. I have personally reviewed this examination and agree with the resident/fellow physician's interpretation. Susanne Porter MD RAD CT Final Result * (ABNORMAL) GLUCOSE METER, POINT OF CARE (03/31/2024 5:15 AM EST) Pathologist [facility] GLUCOSE - POCT 188(H) 70 - 120 mg/dL 03/31/2024 5:17 AM EST [facility] Blood Whole blood specimen / Unknown 03/31/2024 5:15 AM EST 03/31/2024 5:17 AM EST Art Ybarra MD LAB POINT OF CARE TE ST DOCKED DEVICE UNSOLICITED RESULTS Final Result [facility] [address] [place] [address] * (ABNORMAL) TROPONIN T, HIGH SENSITIVITY (03/31/2024 4:24 AM EST) [facility] Troponin T, High Sensitivity 18(H) <=14 ng/L 03/31/2024 5:50 PM EST LABORATORY [facility] Blood Venous blood specimen / Unknown Venipuncture / Unknown 03/31/2024 4:24 AM EST 03/31/2024 4:58 AM EST Isidra Santillan DO LAB BLOOD ORDER JASPER Final Result LABORATORY [facility] [address] [place] [address] * (ABNORMAL) BASIC METABOLIC PANEL (03/31/2024 4:24 AM EST) BUN 11 6 - 20 mg/dL 03/31/2024 5:27 AM EST [facility] CREATININE 0.6 0.5 - 1.0 mg/dL 03/31/2024 5:27 AM EST [facility] EGFR >90 >=60 mL/min 03/31/2024 5:27 AM EST [facility] Comment:eGFR is calculated b ased on the CKD-EPI 2020 equation. SODIUM 142 135 - 146 mmol/L 03/31/2024 5:27 AM EST [facility] POTASSIUM 3.7 3.5 - 5.1 mmol/L 03/31/2024 5:27 AM EST [facility] CHLORIDE 106 98 - 107 mmol/L 03/31/2024 5:27 AM EST [facility] CO2 23 22 - 32 mmol/L 03/31/2024 5:27 AM EST [facility] ANION GAP 13 7 - 15 mmol/L 03/31/2024 5:27 AM EST [facility] GLUCOSE 187(H) 70 - 120 mg/dL 03/31/2024 5:27 AM EST [facility] CALCIUM 7.9(L) 8.4 - 10.2 mg/dL 03/31/2024 5:27 AM EST [facility] Blood Venous blood specimen / Unknown Venipuncture / Unknown 03/31/2024 4:24 AM EST 03/31/2024 4:58 AM EST us Susanne Porter MD LAB BLOOD ORDERABLES Final Re sult [facility]ATORY [facility] [address] [facility] [place] [address] * CBC (03/31/2024 4:24 AM EST) WBC 8.81 4.00 - 10.80 K/uL 03/31/2024 5:07 AM EST [facility] RBC 3.91 3.85 - 5.15 M/uL 03/31/2024 5:07 AM EST [facility] HGB 12.3 12.0 - 15.3 g/dL 03/31/2024 5:07 AM EST LABORATORY [facility] HCT 37.4 36.0 - 45.2 % 03/31/2024 5:07 AM EST LABORATORY [facility] MCV 95.7 81.5 - 97.5 fL 03/31/2024 5:07 AM EST LABORATORY [facility] MCH 31.5 27.0 - 34.0 pg 03/31/2024 5:07 AM EST LABORATORY [facility] MCHC 32.9 32.0 - 36.0 g/dL 03/31/2024 5:07 AM EST LABORATORY [facility] RDW 12.7 11.5 - 15.5 % 03/31/2024 5:07 AM EST LABORATORY [facility] PLT 258 140 - 400 K/uL 03/31/2024 5:07 AM EST LABORATORY [facility] MPV 11.5 6.6 - 11.1 fL 03/31/2024 5:07 AM EST LABORATORY [facility] nRBCs 0 <=0 /100 WBCs 03/31/2024 5:07 AM EST LABORATORY [facility] Blood Venous blood specimen / Unknown Venipuncture / Unknown 03/31/2024 4:24 AM EST 03/31/2024 4:58 AM EST us Susanne Porter MD LAB BLOOD ORDERABLES Final Re sult LABORATORY [facility] [address] [place] [address] * (ABNORMAL) LIPID PANEL WITH DIRECT LDL IF TG IS HIGH (03/31/2024 4:24 AM EST) Triglycerides 235(H) <=174 mg/dL 03/31/2024 5:27 AM EST LABORATORY [facility] Comment: Triglyceride Reference Ranges (mg/dL): <150 Acceptable 150-174 Borderline high 175-499 High >=500 Very high Cholesterol 191 <200 mg/dL 03/31/2024 5:27 AM EST LABORATORY [facility] Comment: Total Cholesterol Reference Ranges (mg/dL): <200 Desirable 200-239 Borderline high >=240 High HDL Cholesterol 29(L) >49 mg/dL 5:27 AM EST LABORATORY [facility] Comment: HDL Cholesterol Reference Ranges (mg/dL): >=60 High (Desirable) <50 Low (Undesirable) For Females <40 Low (Undesirable) For Males Non-HDL Cholesterol 162(H) <=159 mg/dL 03/31/2024 5:27 AM EST LABORATORY [facility] Comment: Non-HDL Cholesterol Reference Range (mg/dL): <100 Target level for high risk ASCVD patient <130 Optimal for general population 130-159 Near optimal for general population 160-189 Borderline High 190-219 High >=220 Very High LDL Cholesterol 115 <=129 mg/dL 03/31/2024 5:27 AM EST LABORATORY [facility] Comment: LDL Cholesterol Reference Ranges (mg/dL): <70 Target level for high risk ASCVD patient <100 Optimal for general population 100-129 Near optimal for general population 130-159 Borderline high 160-189 High >=190 Very high Blood Venous blood specimen / Unknown Venipuncture / Unknown 03/31/2024 4:24 AM EST 03/31/2024 4:58 AM EST us Susanne Porter MD LAB BLOOD ORDERABLES Final Re sult LABORATORY [place] [address] [place] [address] * (ABNORMAL) GLUCOSE METER, POINT OF CARE (03/30/2024 10:59 PM EST) [facility] GLUCOSE - POCT 150(H) 70 - 120 mg/dL 03/30/2024 11:03 PM EST [facility] Blood Whole blood specimen / Unknown 03/30/2024 10:59 PM EST 03/30/2024 11:03 PM EST us Art Ybarra MD LAB POINT OF CARE TE ST DOCKED DEVICE UNSOLICITED RESULTS Final Result [facility] [address] [place] [address] * MRSA SCREEN, PCR (03/30/2024 7:50 PM EST) [facility] MRSA PCR Result Negative Negative 10:33 PM EST LABORATORY [facility] Comment:No Methicillin resis tant Staphylococcus aureus detected by PCR (amplified probe). Upper Respiratory Swab of internal nose / Unknown Non-blood Collection / Unknown 03/30/2024 7:50 PM EST 03/30/2024 8:17 PM EST us Susanne Porter MD LAB MICRO - GENERAL ORDERABLE S Final Result LABORATORY [facility] [address] [place] [address] * (ABNORMAL) GLUCOSE METER, POINT OF CARE (03/30/2024 5:58 PM EST) GLUCOSE - POCT 131(H) 70 - 120 mg/dL 03/30/2024 6:44 PM EST [employer] [facility] Blood Whole blood specimen / Unknown 03/30/2024 5:58 PM EST 03/30/2024 6:44 PM EST Art Ybarra MD LAB POINT OF CARE TE ST DOCKED DEVICE UNSOLICITED RESULTS Final Result [facility] [address] [place] [address] * ECHO, COMPLETE (2D), TRANS-THORACIC (03/30/2024 2:10 PM EST) LEFT VENTRICULAR EJECTION FRACTION 60 % [facility] CARDIOLOGY 03/30/2024 12:3 5 PM EST us Susanne Porter MD ECHOCARDIOLOGY Final Result [facility] CARDIOLOGY * (ABNORMAL) GLUCOSE METER, POINT OF CARE (03/30/2024 11:59 AM EST) GLUCOSE - POCT 224(H) 70 - 120 mg/dL 03/30/2024 6:44 PM EST [facility] Blood Whole blood specimen / Unknown 03/30/2024 11:59 AM EST 03/30/2024 6:44 PM EST us Atr Ybarra MD LAB POINT OF CARE TE ST DOCKED DEVICE UNSOLICITED RESULTS Final Result [facility] MEDICAL [facility] [address] [place] [address] * EKG (03/30/2024 11:46 AM EST) 03/30/2024 11:4 6 AM EST Narrative Procedure Note Stephen Geronimo MD - 03/30/2024 11:46 AM EST REASON FOR STUDY: STROKE CONCLUSIONS: Normal sinus rhythm with 1st degree AV block Right bundle branch block Abnormal ECG When compared with ECG of 04-Nov-2023 09:36, No significant change was found Ventricular Rate: 71 Atrial Rate: 71 [place] Interval: 206 QRS Duration: 144 QT/QTc: 484/525 ms P-R-T Evant: 81 : 33 : 32 degrees Susanne Porter MD EKG Final Result Performing Organization Address [facility] Co de Phone Number [facility] CARDIOLOG[facility] * (ABNORMAL) HEMOGLOBIN A1C (03/30/2024 10:41 AM EST) Hemoglobin A1C 7.2(H) 4.0 - 5.6 % 03/30/2024 11:07 AM EST LABORATORY [facility] Comment:The use of HbA1c to monitor glycemic status is based on normal hemoglobin and HbA composition. This test should not be used in patients with abnormal hemoglobin that affects the half life of the red blood cell or the in vivo glycation rates. Estimated Average Glucose 160(H) <126 mg/dL 03/30/2024 11:07 AM EST LABORATORY [facility] Blood Venous blood specimen / Unknown Venipuncture / Unknown 03/30/2024 10:41 AM EST 03/30/2024 10:48 AM EST Susanne Porter MD LAB BLOOD ORDERABLES Final Re sult [facility]ATORY [facility] [address] [place] [address] * PT INR (03/30/2024 10:41 AM EST) Prothrombin Time 13.3 11.6 - 15.2 seconds 03/30/2024 11:09 AM EST LABORATORY [facility] INR 1.0 0.8 - 1.2 03/30/2024 11:09 AM EST LABORATORY [facility] Blood Venous blood specimen / Unknown Venipuncture / Unknown 03/30/2024 10:41 AM EST 03/30/2024 10:47 AM EST Narrative LABORATORY [facility] - 03/30/2024 11:09 AM EST Warfarin Therapy INR: 2.0-3.0 conventional anticoagulation INR: 2.5-3.5 high intensity anticoagulation [facility] BLOOD ORDERABLES Mary l Result LABORATORY [address] [address] * APTT (03/30/2024 10:41 AM EST) aPTT 25 21 - 38 seconds 03/30/2024 11:10 AM EST LABORATORY [facility] Blood Venous blood specimen / Unknown Venipuncture / Unknown 03/30/2024 10:41 AM EST 03/30/2024 10:47 AM EST Narrative LABORATORY [facility] - 03/30/2024 11:10 AM EST Anticoagulation may affect testing. Refer to [employer] Test Catalog for a list of effects. [facility] LAB BLOOD ORDERABLES Mary l Result LABORATORY [address] [address] * PHOSPHORUS (03/30/2024 10:07 AM EST) Phosphorus 2.8 2.5 - 4.8 mg/dL 03/30/2024 10:51 AM EST LABORATORY [facility] Blood Venous blood specimen / Unknown Venipuncture / Unknown 03/30/2024 10:07 AM EST 03/30/2024 10:23 AM EST us Suasnne Porter MD LAB BLOOD ORDERABLES Final Re sult Performing Organization Address City/[facility]/ZIP Co de Phone Number LAB[facility]ATORY [facility] [address] [place] [address] * MAGNESIUM (03/30/2024 10:07 AM EST) Magnesium 2.0 1.5 - 2.6 mg/dL 03/30/2024 10:51 AM EST LAB[facility]ORY [facility] Blood Venous blood specimen / Unknown Venipuncture / Unknown 03/30/2024 10:07 AM EST 03/30/2024 10:23 AM EST Susanne Porter MD LAB BLOOD ORDERABLES Final Re sult Performing Organization Address City/[facility]/ZIP Co de Phone Number LAB[facility]ORY [facility] [address] [place] [address] * CBC (03/30/2024 10:07 AM EST) WBC 10.26 4.00 - 10.80 K/uL 03/30/2024 10:31 AM EST LAB[facility]ORY [facility] RBC 4.15 3.85 - 5.15 M/uL 03/30/2024 10:31 AM EST [facility] HGB 13.1 12.0 - 15.3 g/dL 03/30/2024 10:31 AM EST [facility] HCT 39.5 36.0 - 45.2 % 03/30/2024 10:31 AM EST [facility] MCV 95.2 81.5 - 97.5 fL 03/30/2024 10:31 AM EST [facility] MCH 31.6 27.0 - 34.0 pg 03/30/2024 10:31 AM EST [facility] MCHC 33.2 32.0 - 36.0 g/dL 03/30/2024 10:31 AM EST [facility] RDW 12.6 11.5 - 15.5 % 03/30/2024 10:31 AM EST LAB[facility]ORY [facility] PLT 267 140 - 400 K/uL 03/30/2024 10:31 AM EST LABORATORY [facility] MPV 11.3 6.6 - 11.1 fL 03/30/2024 10:31 AM EST LABORATORY [facility] nRBCs 0 <=0 /100 WBCs 03/30/2024 10:31 AM EST LABORATORY [facility] Blood Venous blood specimen / Unknown Venipuncture / Unknown 03/30/2024 10:07 AM EST 03/30/2024 10:23 AM EST us Susanne Porter MD LAB BLOOD ORDERABLES Final Re sult LABORATORY [facility] [address] [place] [address] * (ABNORMAL) COMPREHENSIVE METABOLIC PANEL (03/30/2024 10:07 AM EST) BUN 16 6 - 20 mg/dL 03/30/2024 10:51 AM EST [facility] CREATININE 0.5 0.5 - 1.0 mg/dL 03/30/2024 10:51 AM EST [facility]ORY [facility] EGFR >90 >=60 mL/min 03/30/2024 10:51 AM EST LAB[facility]ORY [facility] Comment:eGFR is calculated b ased on the CKD-EPI 2020 equation. SODIUM 139 135 - 146 mmol/L 03/30/2024 10:51 AM EST [facility] POTASSIUM 3.9 3.5 - 5.1 mmol/L 03/30/2024 10:51 AM EST [facility] CHLORIDE 104 98 - 107 mmol/L 03/30/2024 10:51 AM EST [facility] CO2 17(L) 22 - 32 mmol/L 03/30/2024 10:51 AM EST [facility] ANION GAP 18(H) 7 - 15 mmol/L 03/30/2024 10:51 AM EST [facility] GLUCOSE 246(H) 70 - 120 mg/dL 03/30/2024 10:51 AM EST [facility] Albumin 3.1(L) 3.8 - 5.0 g/dL 03/30/2024 10:51 AM EST [facility] AST 16 10 - 35 U/L 03/30/2024 10:51 AM EST [facility]ORY [facility] Alkaline Phosphatase 90 35 - 130 U/L 03/30/2024 10:51 AM EST [facility] Bilirubin, Total 0.3 <=1.2 mg/dL 03/30/2024 10:51 AM EST [facility] CALCIUM 7.7(L) 8.4 - 10.2 mg/dL 03/30/2024 10:51 AM EST [facility] Protein 5.7(L) 6.0 - 8.3 g/dL 03/30/2024 10:51 AM EST [facility] ALT 12 10 - 35 U/L 03/30/2024 10:51 AM EST [facility] Blood Venous blood specimen / Unknown Venipuncture / Unknown 03/30/2024 10:07 AM EST 03/30/2024 10:23 AM EST us Susanne Porter MD LAB BLOOD ORDERABLES Final Re sult [facility]ATORY [facility] [address] [place] [address] * NEURO IR IMAGING (03/30/2024 9:18 AM EST) Narrative Scheduling, Silent - 03/30/2024 9:19 AM EST This procedure will not be read by a Radiologist. Please see operative note. us Yannick Monteiro MD, PhD RAD SPECIAL PROCEDURES F inal Result documented in this encounter Visit Diagnoses Diagnosis Acute ischemic left MCA stroke (HCC)- Primary Unspecified cerebral artery occlusion with cerebral infarction Stroke (HCC) Unspecified cerebral artery occlusion with cerebral infarction Chest pain Chest pain, unspecified Cerebral infarction due to unspecified occlusion or stenosis of left middle cerebral artery (HCC) Aphasia Hemiplegia, unspecified affecting right dominant side (HCC) Nihss score 21 Unspecified atrial fibrillation (HCC) custodial (current) use of anticoagulants Long-term (current) use of anticoagulants Personal history of other venous thrombosis and embolism Centrilobular emphysema (HCC) Other emphysema Other nonspecific abnormal finding of lung field Paroxysmal atrial fibrillation (HCC) Atrial fibrillation HTN, goal below 140/90 Unspecified essential hypertension Statin intolerance Other drug allergy Dyslipidemia, goal LDL below 70 Other and unspecified hyperlipidemia Right hemiparesis (HCC) Hemiplegia, unspecified, affecting unspecified side Mixed aphasia Aphasia Gait abnormality Abnormality of gait Impaired mobility and ADLs Mechanical problems with limbs Dysphagia due to recent stroke Dysphagia, late effect of cerebrovascular disease documented in this encounter Administered Medications Inactive Administered Medications - up to 3 most recent administrations Medication Order MAR Action Action Date Dose Rate Site Acetaminophen (Ofirmev) inj 1,000 mg 1,000 mg, Intravenous, ONCE, 1 dose, On Fri03/31/24 at 2100, Administer over 15 Minutes, Administer undiluted over 15 minutes! NOTE: Maximum of 4000 mg per 24 hours of acetaminophen from all acetaminophen containing products., Indication: Patient is strictly NPO New Bag 03/31/2024 10:08 PM EST 1,000 mg 400 mL/hr ampicillin-sulbactam in NSS (Unasyn) ivpb 1.5 g 1.5 g, IV Piggyback, Q6H, 20 doses, First dose on Fri04/01/24 at 0000, Last dose on Fri04/05/24 at 1800, MIX BEFORE ADMINISTERING! New Bag 04/01/2024 5:24 AM EST 1.5 g 104 mL/hr New Bag 04/01/2024 12:10 AM EST 1.5 g 104 mL/hr aspirin chew tab 81 mg 81 mg, Oral, Daily(AM), First dose on Fri04/01/24 at 0900, Until Discontinued Given 04/06/2024 9:00 AM EST 81 mg Given 04/05/2024 9:17 AM EST 81 mg Given 04/04/2024 8:33 AM EST 81 mg aspirin supp 75 mg 75 mg, Rectal, Daily(AM), First dose on Fri03/30/24 at 1215, Until Discontinued, Refrigerate Given 03/31/2024 8:43 AM EST 75 mg Given 03/30/2024 4:06 PM EST 75 mg chlorHEXIDINE (Periogard) 0.12 % oral rinse 15 mL 15 mL, Oral mucosal membrane, BID (799,1999), First dose on Fri03/30/24 at 2000, Until Discontinued, Include oral/gum/tooth brushing with medication. Use prepackaged oral kit suction tooth brush if available. Given 03/31/2024 8:52 AM EST 15 mL Given 03/30/2024 7:49 PM EST 15 mL dextrose 50% inj 25 mL 25 mL, IV Push, PRN Hypoglycemia, Other, For blood glucose 54 - 69 mg/dL or 70 - 100 mg/dL with symptoms AND patient is unresponsive, NPO, OR unable to swallow, Starting on Fri03/30/24 at 1110, Until Fri04/06/24 at 1746, Administer IV. Recheck blood glucose after 15 minutes. Notify provider. dextrose 50% inj 50 mL 50 mL, IV Push, PRN Hypoglycemia, Other, For blood glucose below 54 mg/dL AND patient unresponsive, NPO, OR unable to swallow, Starting on Fri03/30/24 at 1110, Until Fri04/06/24 at 1746, Administer IV. Recheck blood glucose in 15 minutes. Notify provider. Enoxaparin (Lovenox) inj 40 mg 40 mg, Subcutaneous, Daily(AM), First dose on Laisha 04/01/24 at 0900, Until Discontinued, If patient is on warfarin, inform provider if daily INR value is 2 or greater! Given 04/06/2024 9:01 AM EST 40 mg Abdom en Left Lower Given 04/05/2024 9:17 AM EST 40 mg Ab domen Left Lower Given 04/04/2024 8:32 AM EST 40 mg Ab domen Left Upper Ezetimibe (Zetia) tab 10 mg 10 mg, Oral, Daily(AM), First dose on Fri03/31/24 at 0900, Until Discontinued Given 04/06/2024 9:01 AM EST 10 mg Given 04/05/2024 9:17 AM EST 10 mg Given 04/04/2024 8:33 AM EST 10 mg flecainide (Tambocor) tab 100 mg 100 mg, Oral, Q12H, First dose on Fri03/31/24 at 1015, Until Discontinued Given 04/06/2024 9:01 AM EST 100 mg Given 04/05/2024 9:49 PM EST 100 mg Given 04/05/2024 9:17 AM EST 100 mg Furosemide (Lasix) inj 20 mg 20 mg, IV Push, ONCE, On Fri04/02/24 at 0945, For 1 dose Given 04/02/2024 10:02 AM EST 20 mg Furosemide (Lasix) inj 40 mg 40 mg, IV Push, ONCE, On Fri04/02/24 at 1645, For 1 dose Given 04/02/2024 5:33 PM EST 40 mg Furosemide (Lasix) inj 40 mg 40 mg, IV Push, ONCE, On 04/05/24 at 1000, For 1 dose Given 04/05/2024 12:10 PM EST 40 mg Furosemide (Lasix) inj 60 mg 60 mg, IV Push, ONCE, On 04/03/24 at 1000, For 1 dose Given 04/03/2024 10:30 AM EST 60 mg glucagon (Glucagen) inj 1 mg 1 mg, Intramuscular, PRN Hypoglycemia, Other, If patient is unresponsive, or NPO and has no IV access, Starting on Fri03/30/24 at 1110, Until Fri04/06/24 at 1746, NPO and no IV access with either 1) blood glucose less than 100 mg/dL and symptomatic OR 2) blood glucose less than 70 mg/dL and asymptomatic Glucose (Glutose 15) 40 % gel 15 g of glucose 15 g of glucose, Oral, PRN Hypoglycemia (low sugar), Other, For blood glucose 54 - 69 mg/dL or 70 - 100 mg/dL with symptoms AND patient alert WITH difficulty chewing/swallowing, Starting on Fri03/30/24 at 1110, Until Fri04/06/24 at 1746, Administer gel. Recheck blood glucose after 15 minutes. Notify provider. 37.5 gram tube = 15 grams glucose = 1 each Glucose (Glutose 15) 40 % gel 30 g of glucose 30 g of glucose, Oral, PRN Hypoglycemia (low sugar), Other, For blood glucose below 54 mg/dL AND patient alert WITH difficulty chewing/swallowing, Starting on Fri03/30/24 at 1110, Until Fri04/06/24 at 1746, Administer gel. Recheck blood glucose after 15 minutes. Notify provider. 37.5 gram tube = 15 grams glucose = 1 each glucose chew tab 16 g 16 g, Oral, PRN Hypoglycemia, Other, For blood glucose 54 - 69 mg/dL or 70 - 100 mg/dL with symptoms and patient alert without difficulty chewing/swallowing., Starting on Fri03/30/24 at 1110, Until Fri04/06/24 at 1746 hydrALAZINE (Apresoline) inj 10 mg 10 mg, Intravenous, Q6H PRN Hypertension, Give when SBP over 180, Starting on Laisha 04/01/24 at 0916, Until Fri04/06/24 at 1746 Given 04/01/2024 9:41 AM EST 10 mg insulin aspart (NovoLOG) inj Subcutaneous, Q6H, First dose on Fri03/30/24 at 1200, Until Discontinued, MEDIUM DOSE (Usual starting dose): Sliding Scale Correctional insulin may be given if the patient is NPO. Dose based on standard build from Insulin Calculator. Do not modify insulin doses in administration instructions!, Glucose less than 70 instructions: Obtain STAT lab blood glucose and call covering provider., Glucose 80-150 (units): 0, Glucose 151-200 (units): 2, Glucose 201-250 (units): 4, Glucose 251-300 (units): 6, Glucose greater than 300 (units): 8, Glucose greater than 300 instructions: Give suggested insulin dose and call covering provider. Given 03/31/2024 5:18 AM EST 2 Units Abdomen Right Lower Given 03/30/2024 12:10 PM EST 4 Units A rm Left Upper insulin aspart (NovoLOG) inj Subcutaneous, W/MEALS AND HS, First dose (after last modification) on Fri03/31/24 at 1200, Until Discontinued, MEDIUM DOSE (Usual starting dose): Sliding Scale Correctional insulin may be given if the patient is NPO. Dose based on standard build from Insulin Calculator. Do not modify insulin doses in administration instructions!, Glucose less than 70 instructions: Obtain STAT lab blood glucose and call covering provider., Glucose 80-150 (units): 0, Glucose 151-200 (units): 2, Glucose 201-250 (units): 4, Glucose 251-300 (units): 6, Glucose greater than 300 (units): 8, Glucose greater than 300 instructions: Give suggested insulin dose and call covering provider. Given 04/02/2024 1:00 PM EST 4 Units Abdomen Left Lower Given 04/02/2024 10:02 AM EST 2 Units A bdomen Left Lower Given 04/01/2024 4:51 PM EST 4 Units Ab domen Left Upper insulin aspart (NovoLOG) inj Subcutaneous, WITH MEALS, First dose on Fri03/31/24 at 1200, Until Discontinued, Dose equals 1 unit of insulin per 15 grams of carbohydrate consumed. Hold dose if patient does not eat Given 03/31/2024 1:50 PM EST 3 Units Arm Left Upper insulin aspart (NovoLOG) inj Subcutaneous, W/MEALS AND HS, First dose on Fri04/02/24 at 1700, Until Discontinued, HIGH DOSE (Moderately Insulin Resistance): Sliding Scale Correctional insulin may be given if the patient is NPO. Dose based on standard build from Insulin Calculator. Do not modify insulin doses in administration instructions!, Glucose less than 70 instructions: Obtain STAT lab blood glucose and call covering provider., Glucose 80-150 (units): 0, Glucose 151-200 (units): 3, Glucose 201-250 (units): 6, Glucose 251-300 (units): 9, Glucose greater than 300 (units): 12, Glucose greater than 300 instructions: Give suggested insulin dose and call covering provider. Given 04/05/2024 9:59 PM EST 6 Units Arm Left Upper Given 04/05/2024 6:14 PM EST 6 Units Ab domen Left Lower Given 04/05/2024 12:49 PM EST 6 Units A bdomen Left Lower insulin aspart (NovoLOG) inj Subcutaneous, W/MEALS AND HS, First dose on Fri04/06/24 at 0845, Until Discontinued, HIGH DOSE, Insulin sensitivity factor (ISF) = 30 (Moderately Insulin Resistance) Serum Blood Sugarless than 70 mg/dl or symptomatic (obtain STAT lab blood sugar and notify provider); 151 - 180 mg/dl (1 units); 181 - 210 mg/dl (2 units); 211 - 240 mg/dl (3 units); 241 - 270 mg/dl (4 units); 271 - 300 mg/dl (5 units); 301 - 330 mg/dl (6 units); 331 - 360 mg/dl (7 units); 361 - 390 mg/dl (8 units); greater than 390 mg/dl (call provider) Correctional insulin may be given if the patient is NPO. Given 04/06/2024 9:04 AM EST 3 Units Arm Right Upper insulin aspart (NovoLOG) inj Subcutaneous, WITH MEALS, First dose on Fri04/06/24 at 1200, Until Discontinued, Dose equals 1 unit of insulin per 10 grams of carbohydrate consumed. Hold dose if patient does not eat Insulin Glargine (Lantus) inj 16 Units 16 Units, Subcutaneous, HSINSULIN, First dose on Fri04/04/24 at 2200, Until Discontinued, "IF DOSE IS HELD- NOTIFY COVERING PROVIDER!" Given 04/05/2024 9:48 PM EST 16 Units Arm Right Upper Given 04/04/2024 10:16 PM EST 16 Units A rm Right Upper Insulin Glargine (Lantus) inj 20 Units 20 Units, Subcutaneous, HSINSULIN, First dose (after last modification) on Fri04/06/24 at 2200, Until Discontinued, "IF DOSE IS HELD- NOTIFY COVERING PROVIDER!" Lisinopril (Prinivil) tab 10 mg 10 mg, Oral, Daily(AM), First dose on Laisha 04/01/24 at 1330, Until Discontinued Given 04/02/2024 10:03 AM EST 10 mg Given 04/01/2024 1:58 PM EST 10 mg Lisinopril (Prinivil) tab 40 mg 40 mg, Oral, Daily(AM), First dose (after last modification) on Fri04/06/24 at 0900, Until Discontinued Given 04/06/2024 9:00 AM EST 40 mg Lisinopril (Prinivil) tab 5 mg 5 mg, Oral, Daily(AM), First dose (after last modification) on Fri04/03/24 at 0900, Until Discontinued Given 04/05/2024 9:17 AM EST 5 mg Given 04/04/2024 8:33 AM EST 5 mg Given 04/03/2024 8:44 AM EST 5 mg Metoprolol Tartrate (Lopressor) inj 5 mg 5 mg, IV Push, Q12H, First dose on Fri03/31/24 at 2100, Until Discontinued Given 04/01/2024 8:28 AM EST 5 mg Given 03/31/2024 9:22 PM EST 5 mg Metoprolol Tartrate (Lopressor) tab 100 mg 100 mg, Oral, BID (.AM/PM), First dose (after last modification) on Fri04/02/24 at 2100, Until Discontinued, Hold for HR less than 60 or SBP below 100 and notify service if dose is held Given 04/06/2024 9:01 AM EST 100 mg Given 04/05/2024 9:49 PM EST 100 mg Given 04/05/2024 9:17 AM EST 100 mg Metoprolol Tartrate (Lopressor) tab 50 mg 50 mg, Oral, BID (.AM/PM), First dose on Fri03/31/24 at 1015, Until Discontinued, Hold for HR less than 60 or SBP below 100 and notify service if dose is held Given 03/31/2024 10:58 AM EST 50 mg Metoprolol Tartrate (Lopressor) tab 50 mg 50 mg, Oral, BID (.AM/PM), First dose on Fri04/01/24 at 2100, Until Discontinued, Hold for HR less than 60 or SBP below 100 and notify service if dose is held Given 04/02/2024 10:03 AM EST 50 mg Given 04/01/2024 8:37 PM EST 50 mg Metoprolol Tartrate (Lopressor) tab 50 mg 50 mg, Oral, ONCE, On Fri04/02/24 at 1400, For 1 dose, Hold for HR less than 60 or SBP below 100 and notify service if dose is held Given 04/02/2024 3:01 PM EST 50 mg Oral Hygiene: Mouth Swab with dentifrice Oral, Q4H LIMITED (00;04;12;16), First dose on Fri03/30/24 at 1200, Until Discontinued, To be used with 1.5% hydrogen peroxide solution or 0.05% cetylpyridium chloride oral rinse Given 03/31/2024 11:56 AM EST Given 03/31/2024 4:00 AM EST Given 03/31/2024 12:00 AM EST Polyethylene Glycol 3350 (Miralax) oral powder 17 g 17 g (1 Packet), Oral, Daily(AM), First dose on Fri04/02/24 at 0900, Until Discontinued, Mix in 8 oz of water, juice, soda, coffee, or tea. Given 04/02/2024 9: 00 AM EST 17 g Polyethylene Glycol 3350 (Miralax) oral powder 34 g 34 g (2 Packet), Oral, BID (0900,2100), First dose (after last modification) on Fri04/03/24 at 0900, Until Discontinued, Mix in 8 oz of water, juice, soda, coffee, or tea. Given 04/06/2024 9:01 AM EST 34 g Given 04/05/2024 9:49 PM EST 34 g Given 04/05/2024 9:19 AM EST 34 g rosuvastatin (Crestor) tab 5 mg 5 mg, Oral, Daily(AM), First dose on Fri03/31/24 at 1015, Until Discontinued Given 03/31/2024 10:59 AM EST 5 mg senna-docusate (Senokot-S) 1 Tablet 1 Tablet, Oral, Daily(AM), First dose on Fri04/02/24 at 0900, Until Discontinued Given 04/02/2024 10:03 AM EST 1 Tablet senna-docusate (Senokot-S) 2 Tablet 2 Tablet, Oral, Daily(AM), First dose (after last modification) on Fri04/03/24 at 0900, Until Discontinued Given 04/04/2024 8:32 AM EST 2 Tablets Given 04/03/2024 8:44 AM EST 2 Tablets senna-docusate (Senokot-S) 2 Tablet 2 Tablet, Oral, BID (.AM/PM), First dose (after last modification) on Fri04/05/24 at 0900, Until Discontinued Given 04/06/2024 9:00 AM EST 2 Tablets Given 04/05/2024 9:48 PM EST 2 Tablets Given 04/05/2024 9:17 AM EST 2 Tablets tap water enema 1 Enema 1 Enema, Rectal, ONCE, On Fri04/05/24 at 1000, For 1 dose Given 04/05/2024 10:00 AM EST 1 Enema documented in this encounter Active and Recently Administered Medications Times are shown in EST. Scheduled Medication Order 04/04/2024 04/05/2024 04/06/2024 aspirin chew tab 81 mg 81 mg, Oral, Daily(AM), First dose on Fri04/01/24 at 0900, Until Discontinued 0833 (Given - Provider: Kitty Jang RN) 0917 (Given - Provider: Lashell Blake RN) 0900 (Given - Provider: Nikky Funes RN) Enoxaparin (Lovenox) inj 40 mg 40 mg, Subcutaneous, Daily(AM), First dose on Fri04/01/24 at 0900, Until Discontinued, If patient is on warfarin, inform provider if daily INR value is 2 or greater! 0832 (Given - Provider: Kitty Jang RN) 09 (Given - Provider: Lashell Blake RN) 09 (Given - Provider: Nikyk Funes RN) Ezetimibe (Zetia) tab 10 mg 10 mg, Oral, Daily(AM), First dose on Fri03/31/24 at 0900, Until Discontinued 0833 (Given - Provider: Kitty Jang RN) 09 (Given - Provider: Lashell Blake RN) 09 (Given - Provider: Nikky Funes RN) flecainide (Tambocor) tab 100 mg 100 mg, Oral, Q12H, First dose on Fri03/31/24 at 1015, Until Discontinued 08 (Given - Provider: Kitty Jang RN)2214 (Given - Provider: Lolis Mendez, LISA) 916 (Given - Provider: Lashell Blake RN)214 (Given - Provider: Teddy Lim RN) 900 (Given - Provider: Nikky Funes RN) Furosemide (Lasix) inj 40 mg (COMPLETED) 40 mg, IV Push, ONCE, On Fri04/05/24 at 1000, For 1 dose 1210 (Given - Provider: Lashell Blake RN) insulin aspart (NovoLOG) inj (CANCELED) Subcutaneous, W/MEALS AND HS, First dose on Fri04/02/24 at 1700, Until Discontinued, HIGH DOSE (Moderately Insulin Resistance): Sliding Scale Correctional insulin may be given if the patient is NPO. Dose based on standard build from Insulin Calculator. Do not modify insulin doses in administration instructions!, Glucose less than 70 instructions: Obtain STAT lab blood glucose and call covering provider., Glucose 80-150 (units): 0, Glucose 151-200 (units): 3, Glucose 201-250 (units): 6, Glucose 251-300 (units): 9, Glucose greater than 300 (units): 12, Glucose greater than 300 instructions: Give suggested insulin dose and call covering provider. 0832 (Given - Provider: Kitty Jang RN)1241 (Given - Provider: Kitty Jang RN)1657 (Given - Provider: Kitty Jang RN)221 (Given - Provider: Lolis Mendez RN) 0917 (Given - Provider: Lashell Blake RN)1249 (Given - Provider: Lashell Blake RN)1814 (Given - Provider: Lashell Blake RN)215 (Given - Provider: Teddy Lim, LISA) 0800 (Not Given - Provider: Nikky Funes RN - Reason: Order Discontinued) insulin aspart (NovoLOG) inj Subcutaneous, W/MEALS AND HS, First dose on Fri04/06/24 at 0845, Until Discontinued, HIGH DOSE, Insulin sensitivity factor (ISF) = 30 (Moderately Insulin Resistance) Serum Blood Sugarless than 70 mg/dl or symptomatic (obtain STAT lab blood sugar and notify provider); 151 - 180 mg/dl (1 units); 181 - 210 mg/dl (2 units); 211 - 240 mg/dl (3 units); 241 - 270 mg/dl (4 units); 271 - 300 mg/dl (5 units); 301 - 330 mg/dl (6 units); 331 - 360 mg/dl (7 units); 361 - 390 mg/dl (8 units); greater than 390 mg/dl (call provider) Correctional insulin may be given if the patient is NPO. 0904 (Given - Provider: Nikky Funes RN)1200 (Due) insulin aspart (NovoLOG) inj Subcutaneous, WITH MEALS, First dose on Fri04/06/24 at 1200, Until Discontinued, Dose equals 1 unit of insulin per 10 grams of carbohydrate consumed. Hold dose if patient does not eat 1200 (Due) Insulin Glargine (Lantus) inj 16 Units (CANCELED) 16 Units, Subcutaneous, HSINSULIN, First dose on Fri04/04/24 at 2200, Until Discontinued, "IF DOSE IS HELD- NOTIFY COVERING PROVIDER!" 2215 (Given - Provider: Lolis Mendez RN) 2147 (Given - Provider: Teddy Lim RN) Insulin Glargine (Lantus) inj 20 Units 20 Units, Subcutaneous, HSINSULIN, First dose (after last modification) on Fri04/06/24 at 2200, Until Discontinued, "IF DOSE IS HELD- NOTIFY COVERING PROVIDER!" Lisinopril (Prinivil) tab 40 mg 40 mg, Oral, Daily(AM), First dose (after last modification) on Fri04/06/24 at 0900, Until Discontinued 0900 (Given - Provider: Nikky Funes RN) Lisinopril (Prinivil) tab 5 mg (CANCELED) 5 mg, Oral, Daily(AM), First dose (after last modification) on Fri04/03/24 at 0900, Until Discontinued 0833 (Given - Provider: Kitty Jang RN) 09 (Given - Provider: Lashell Blake RN) Metoprolol Tartrate (Lopressor) tab 100 mg 100 mg, Oral, BID (.AM/PM), First dose (after last modification) on Fri04/02/24 at 2100, Until Discontinued, Hold for HR less than 60 or SBP below 100 and notify service if dose is held 0833 (Given - Provider: Kitty Jang RN)221 (Given - Provider: Lolis Mendez RN) 916 (Given - Provider: Lashell Blake RN)2148 (Given - Provider: Teddy Lim, LISA) 900 (Given - Provider: Nikky Funes RN) Polyethylene Glycol 3350 (Miralax) oral powder 34 g 34 g (2 Packet), Oral, BID (899,2099), First dose (after last modification) on Fri04/03/24 at 0900, Until Discontinued, Mix in 8 oz of water, juice, soda, coffee, or tea. 0832 (Given - Provider: Kitty Jang RN)2099 (Given - Provider: Lolis Mendez RN) 918 (Given - Provider: Lashell Blake RN)2148 (Given - Provider: Teddy Lim RN) 09 (Given - Provider: Nikky Funes RN) senna-docusate (Senokot-S) 2 Tablet (CANCELED) 2 Tablet, Oral, Daily(AM), First dose (after last modification) on Fri04/03/24 at 0900, Until Discontinued 0832 (Given - Provider: Kitty Jang RN) senna-docusate (Senokot-S) 2 Tablet 2 Tablet, Oral, BID (.AM/PM), First dose (after last modification) on Fri04/05/24 at 0900, Until Discontinued 916 (Given - Provider: Lashell Blake RN)2147 (Given - Provider: Teddy Lim RN) 0900 (Given - Provider: Nikky Funes RN) tap water enema 1 Enema (COMPLETED) 1 Enema, Rectal, ONCE, On Fri04/05/24 at 1000, For 1 dose 1000 (Given - Provider: Lashell Blake RN) PRN Medication Order 04/04/2024 04/05/2024 04/06/2024 dextrose 50% inj 25 mL 25 mL, IV Push, PRN Hypoglycemia, Other, For blood glucose 54 - 69 mg/dL or 70 - 100 mg/dL with symptoms AND patient is unresponsive, NPO, OR unable to swallow, Starting on Fri03/30/24 at 1110, Until Fri04/06/24 at 1746, Administer IV. Recheck blood glucose after 15 minutes. Notify provider. dextrose 50% inj 50 mL 50 mL, IV Push, PRN Hypoglycemia, Other, For blood glucose below 54 mg/dL AND patient unresponsive, NPO, OR unable to swallow, Starting on Fri03/30/24 at 1110, Until Fri04/06/24 at 1746, Administer IV. Recheck blood glucose in 15 minutes. Notify provider. glucagon (Glucagen) inj 1 mg 1 mg, Intramuscular, PRN Hypoglycemia, Other, If patient is unresponsive, or NPO and has no IV access, Starting on Fri03/30/24 at 1110, Until Fri04/06/24 at 1746, NPO and no IV access with either 1) blood glucose less than 100 mg/dL and symptomatic OR 2) blood glucose less than 70 mg/dL and asymptomatic Glucose (Glutose 15) 40 % gel 15 g of glucose 15 g of glucose, Oral, PRN Hypoglycemia (low sugar), Other, For blood glucose 54 - 69 mg/dL or 70 - 100 mg/dL with symptoms AND patient alert WITH difficulty chewing/swallowing, Starting on Fri03/30/24 at 1110, Until Fri04/06/24 at 1746, Administer gel. Recheck blood glucose after 15 minutes. Notify provider. 37.5 gram tube = 15 grams glucose = 1 each Glucose (Glutose 15) 40 % gel 30 g of glucose 30 g of glucose, Oral, PRN Hypoglycemia (low sugar), Other, For blood glucose below 54 mg/dL AND patient alert WITH difficulty chewing/swallowing, Starting on Fri03/30/24 at 1110, Until Fri04/06/24 at 1746, Administer gel. Recheck blood glucose after 15 minutes. Notify provider. 37.5 gram tube = 15 grams glucose = 1 each glucose chew tab 16 g 16 g, Oral, PRN Hypoglycemia, Other, For blood glucose 54 - 69 mg/dL or 70 - 100 mg/dL with symptoms and patient alert without difficulty chewing/swallowing., Starting on Fri03/30/24 at 1110, Until Fri04/06/24 at 1746 hydrALAZINE (Apresoline) inj 10 mg 10 mg, Intravenous, Q6H PRN Hypertension, Give when SBP over 180, Starting on Laisha 04/01/24 at 0916, Until Fri04/06/24 at 1746 documented in this encounter Advance Directives * [...] and were consensually agreed upon. Care Teams Finishing Room Supervisor Relationship Specialty Start Date End Date Monika Loco CRNP [address] [place] [address] CHANDNI ALBERTO [id number] PCP - General Nurse Practitioner 12/08/18 documented as of this encounter
--- OUTSIDE RECORDS SUMMARY | 2024-04-24 13:57 | External Medical Summary ---
Author Name Unknown Address Unknown Organization : Laboratory Report Ordering Provider Test Date Status SHILPA HI 04/06/2024 07:18:55 Final Observation Date Value Abnormality Reference (Units ) Status Glucose Point of Care 04/06/2024 07:18:55 231 Above high normal 70-120 (mg/dL) Final Performing Location
--- OUTSIDE RECORDS SUMMARY | 2024-04-24 13:57 | External Medical Summary ---
Author Name Unknown Address Unknown Organization [id number]:LAB[facility]ATORY [facility] [place] - [facility] [address] [place] [id number] Laboratory Report Ordering Provider Test Date Status SHAKEEL GIL 04/03/2024 06:54:00 Final Exclude Heart Failure: <300 pg/mL
Diagnose Heart Failure:
Age <50 yr: >450 pg/mL
50-75 yr: >900 pg/mL
>75 yr: >1800 pg/mL
GFR is 30-59 mL/min: >1200 pg/mL or Age- adjusted values
GFR <30 mL/min: do not use, not reliable

Prognostic threshold: 1000 pg/mL Observation Date Value Abnormality Reference (Units ) Status BNP, Pro-hormone 04/03/2024 06:54:00 2057 Above high no rmal <300 (pg/mL) Final Performing Location LAB[facility]ATORY [facility] [place] - [facility] [address] [place] [id number]
--- OUTSIDE RECORDS SUMMARY | 2024-04-24 13:57 | External Medical Summary ---
Author Name Unknown Address Unknown Organization [id number]:[facility] [place] [address] Laboratory Report Ordering Provider Test Date Status VIRGINIA COOPER 04/07/2024 06:29:52 Final Observation Date Value Abnormality Reference (Units ) Status BUN 04/07/2024 06:29:52 74 Above high normal 6- 20 (mg/dL) Final Results rechecked. Creatinine 04/07/2024 06:29:52 1.6 Above high normal 0 .5-1.0 (mg/dL) Final Results rechecked. Glomerular filtration rate/1.73 sq M.predicted [Volume Rate/Area] in Serum, Plasma or Blood by Creatinine-based formula (CKD-EPI) 04/07/2024 06:29:52 33 Below low normal >=60 (mL/min) Fin al eGFR is calculated based on the CKD-EPI 2020 equation. Sodium 04/07/2024 06:29:52 140 135-146 (m mol/L) Final Potassium 04/07/2024 06:29:52 5.5 Above high normal 3. 5-5.1 (mmol/L) Final Cl 04/07/2024 06:29:52 100 98-107 (mm ol/L) Final CO2 04/07/2024 06:29:52 17 Below low normal 22- 32 (mmol/L) Final Anion gap 04/07/2024 06:29:52 23 Above high normal 7- 15 (mmol/L) Final Glucose 04/07/2024 06:29:52 170 Above high normal 70 -120 (mg/dL) Final Calcium 04/07/2024 06:29:52 9.4 8.4-10.2 ( mg/dL) Final Performing Location [facility] [place] [address]
--- OUTSIDE RECORDS SUMMARY | 2024-04-24 13:57 | External Medical Summary ---
Author Name Unknown Address Unknown Organization K09:[facility] [address] [id number] Laboratory Report Ordering Provider Test Date Status VIRGINIA COOPER 04/07/2024 06:29:52 Final Observation Date Value Abnormality Reference (Units ) Status WBC, Total 04/07/2024 06:29:52 15.18 Above high normal 4 .00-10.80 (K/uL) Final RBC 04/07/2024 06:29:52 5.28 3.85-5.15 (M/uL) Final Hemoglobin 04/07/2024 06:29:52 16.7 Above high normal 1 2.0-15.3 (g/dL) Final HCT 04/07/2024 06:29:52 51.0 Above high normal 36 .0-45.2 (%) Final MCV 04/07/2024 06:29:52 96.6 81.5-97.5 (fL) Final MCH 04/07/2024 06:29:52 31.6 27.0-34.0 (pg) Final MCHC 04/07/2024 06:29:52 32.7 32.0-36.0 (g/dL) Final RDW 04/07/2024 06:29:52 14.4 11.5-15.5 (%) Final Platelets 04/07/2024 06:29:52 391 140-400 (K /uL) Final MPV 04/07/2024 06:29:52 12.1 6.6-11.1 ( fL) Final Performing Location [facility] [place] [address]
--- OUTSIDE RECORDS SUMMARY | 2024-04-24 13:57 | External Medical Summary ---
Author Name Unknown Address Unknown Organization [id number][place] [place] [facility] [address] [facility] [address] Laboratory Report Ordering Provider Test Date Status JENIFER PAGAN 04/05/2024 06:50:00 Final Observation Date Value Abnormality Reference (Units ) Status BUN 04/05/2024 06:50:00 37 Above high normal 6-20 (mg/dL) Final Creatinine 04/05/2024 06:50:00 0.7 0.5-1.0 (mg/dL) Final Glomerular filtration rate/1.73 sq M.predicted [Volume Rate/Area] in Serum, Plasma or Blood by Creatinine-based formula (CKD-EPI) 04/05/2024 06:50:00 >90 >=60 (mL/min) Final eGFR is calculated based on the CKD-EPI 2020 equation. Sodium 04/05/2024 06:50:00 136 135-146 (m mol/L) Final Potassium 04/05/2024 06:50:00 Final Specimen too hemolyzed. Reor carmen if needed. Cl 04/05/2024 06:50:00 102 98-107 (mm ol/L) Final CO2 04/05/2024 06:50:00 Final Specimen too hemolyzed. Reor carmen if needed. Anion gap 04/05/2024 06:50:00 Final Not calculated.
Glucose 04/05/2024 06:50:00 203 Above high normal 70 -120 (mg/dL) Final Calcium 04/05/2024 06:50:00 8.7 8.4-10.2 ( mg/dL) Final Performing Location [facility] [place] [address] [place] [address]
--- OUTSIDE RECORDS SUMMARY | 2024-04-24 13:57 | External Medical Summary ---
Author Name Unknown Address Unknown Organization : Laboratory Report Ordering Provider Test Date Status ARBEN BERGMAN 04/03/2024 12:44:14 Final Observation Date Value Abnormality Reference (Units ) Status Glucose Point of Care 04/03/2024 12:44:14 210 Above high normal 70-120 (mg/dL) Final Performing Location
--- OUTSIDE RECORDS SUMMARY | 2024-04-24 13:57 | External Medical Summary ---
Author Name Unknown Address Unknown Organization : Laboratory Report Ordering Provider Test Date Status ARBEN BERGMAN 04/05/2024 21:28:24 Final Observation Date Value Abnormality Reference (Units ) Status Glucose Point of Care 04/05/2024 21:28:24 221 Above high normal 70-120 (mg/dL) Final Performing Location
--- OUTSIDE RECORDS SUMMARY | 2024-04-24 13:57 | External Medical Summary ---
Author Name Unknown Address Unknown Organization : Laboratory Report Ordering Provider Test Date Status ARBEN BERGMAN 04/02/2024 16:59:54 Final Observation Date Value Abnormality Reference (Units ) Status Glucose Point of Care 04/02/2024 16:59:54 170 Above high normal 70-120 (mg/dL) Final Performing Location
--- OUTSIDE RECORDS SUMMARY | 2024-04-24 13:57 | External Medical Summary ---
Author Name Unknown Address Unknown Organization : Laboratory Report Ordering Provider Test Date Status ARBEN BERGMAN 04/02/2024 20:47:45 Final Observation Date Value Abnormality Reference (Units ) Status Glucose Point of Care 04/02/2024 20:47:45 233 Above high normal 70-120 (mg/dL) Final Performing Location
--- OUTSIDE RECORDS SUMMARY | 2024-04-24 13:57 | External Medical Summary ---
Author Name Unknown Address Unknown Organization : Laboratory Report Ordering Provider Test Date Status ARBEN BERGMAN 04/04/2024 21:58:28 Final Observation Date Value Abnormality Reference (Units ) Status Glucose Point of Care 04/04/2024 21:58:28 244 Above high normal 70-120 (mg/dL) Final Performing Location
--- OUTSIDE RECORDS SUMMARY | 2024-04-24 13:57 | External Medical Summary ---
Author Name Unknown Address Unknown Organization K01:[place] [facility] [place] [address] [place] [address] Laboratory Report Ordering Provider Test Date Status SHAKEEL GIL 04/03/2024 06:54:00 Final Observation Date Value Abnormality Reference (Units ) Status WBC, Total 04/03/2024 06:54:00 7.94 4.00-10.80 (K/uL) Final RBC 04/03/2024 06:54:00 4.37 3.85-5.15 (M/uL) Final Hemoglobin 04/03/2024 06:54:00 14.0 12.0-15.3 (g/dL) Final HCT 04/03/2024 06:54:00 42.0 36.0-45.2 (%) Final MCV 04/03/2024 06:54:00 96.1 81.5-97.5 (fL) Final MCH 04/03/2024 06:54:00 32.0 27.0-34.0 (pg) Final MCHC 04/03/2024 06:54:00 33.3 32.0-36.0 (g/dL) Final RDW 04/03/2024 06:54:00 12.9 11.5-15.5 (%) Final Platelets 04/03/2024 06:54:00 246 140-400 (K/uL) Final MPV 04/03/2024 06:54:00 12.3 6.6-11.1 (fL) Final Nucleated erythrocytes/100 leukocytes [Ratio] in Blood by Automated count 04/03/2024 06:54:00 0 <=0 (/100 WBCs) Final Performing Location [facility]ORY [facility] [place] [address] [place] [address]
--- OUTSIDE RECORDS SUMMARY | 2024-04-24 13:57 | External Medical Summary ---
Author Name Unknown Address Unknown Organization : Laboratory Report Ordering Provider Test Date Status ARBEN BERGMAN 04/05/2024 07:41:01 Final Observation Date Value Abnormality Reference (Units ) Status Glucose Point of Care 04/05/2024 07:41:01 224 Above high normal 70-120 (mg/dL) Final Performing Location
--- OUTSIDE RECORDS SUMMARY | 2024-04-24 13:57 | External Medical Summary ---
Author Name Unknown Address Unknown Organization K01:[place] [facility] [place] [address] [place] [address] Laboratory Report Ordering Provider Test Date Status JENIFER PAGAN 04/05/2024 06:50:00 Final Observation Date Value Abnormality Reference (Units ) Status WBC, Total 04/05/2024 06:50:00 9.51 4.00-10.80 (K/uL) Final RBC 04/05/2024 06:50:00 4.82 3.85-5.15 (M/uL) Final Hemoglobin 04/05/2024 06:50:00 15.3 12.0-15.3 (g/dL) Final HCT 04/05/2024 06:50:00 46.2 Above high normal 36.0-45.2 (%) Final MCV 04/05/2024 06:50:00 95.9 81.5-97.5 (fL) Final MCH 04/05/2024 06:50:00 31.7 27.0-34.0 (pg) Final MCHC 04/05/2024 06:50:00 33.1 32.0-36.0 (g/dL) Final RDW 04/05/2024 06:50:00 13.2 11.5-15.5 (%) Final Platelets 04/05/2024 06:50:00 367 140-400 (K/uL) Final MPV 04/05/2024 06:50:00 11.7 6.6-11.1 (fL) Final Nucleated erythrocytes/100 leukocytes [Ratio] in Blood by Automated count 04/05/2024 06:50:00 0 <=0 (/100 WBCs) Final Performing Location [facility] [place] [address] [place] [address]
--- OUTSIDE RECORDS SUMMARY | 2024-04-24 13:57 | External Medical Summary ---
Author Name Unknown Address Unknown Organization : Laboratory Report Ordering Provider Test Date Status ARBEN BERGMAN 04/05/2024 12:17:14 Final Observation Date Value Abnormality Reference (Units ) Status Glucose Point of Care 04/05/2024 12:17:14 209 Above high normal 70-120 (mg/dL) Final Performing Location
--- OUTSIDE RECORDS SUMMARY | 2024-04-24 13:57 | External Medical Summary ---
Author Name Unknown Address Unknown Organization K01:LAB[facility]ATORY [facility] [place] [address] [place] [address] Laboratory Report Ordering Provider Test Date Status SHAKEEL GIL 04/03/2024 06:54:00 Final Observation Date Value Abnormality Reference (Units ) Status BUN 04/03/2024 06:54:00 26 Above high normal 6-20 (mg/dL) Final Creatinine 04/03/2024 06:54:00 0.7 0.5-1.0 (mg/dL) Final Glomerular filtration rate/1.73 sq M.predicted [Volume Rate/Area] in Serum, Plasma or Blood by Creatinine-based formula (CKD-EPI) 04/03/2024 06:54:00 90 >=60 (mL/min) Final eGFR is calculated based on the CKD-EPI 2020 equation. Sodium 04/03/2024 06:54:00 137 135-146 (m mol/L) Final Potassium 04/03/2024 06:54:00 4.1 3.5-5.1 (m mol/L) Final Cl 04/03/2024 06:54:00 103 98-107 (mm ol/L) Final CO2 04/03/2024 06:54:00 22 22-32 (mmo l/L) Final Anion gap 04/03/2024 06:54:00 12 7-15 (mmol /L) Final Glucose 04/03/2024 06:54:00 180 Above high normal 70 -120 (mg/dL) Final Calcium 04/03/2024 06:54:00 8.3 Below low normal 8.4 -10.2 (mg/dL) Final Performing Location LABORATORY [facility] [place] - [address] [place] [address]
--- OUTSIDE RECORDS SUMMARY | 2024-04-24 13:57 | External Medical Summary ---
Author Name Unknown Address Unknown Organization : Laboratory Report Ordering Provider Test Date Status ARBEN BERGMAN 04/04/2024 12:20:36 Final Observation Date Value Abnormality Reference (Units ) Status Glucose Point of Care 04/04/2024 12:20:36 233 Above high normal 70-120 (mg/dL) Final Performing Location
--- OUTSIDE RECORDS SUMMARY | 2024-04-24 13:57 | External Medical Summary ---
Author Name Unknown Address Unknown Organization : Laboratory Report Ordering Provider Test Date Status ARBEN BERGMAN 04/05/2024 17:04:14 Final Observation Date Value Abnormality Reference (Units ) Status Glucose Point of Care 04/05/2024 17:04:14 215 Above high normal 70-120 (mg/dL) Final Performing Location
--- OUTSIDE RECORDS SUMMARY | 2024-04-24 13:57 | External Medical Summary ---
Author Name Unknown Address Unknown Organization : Laboratory Report Ordering Provider Test Date Status ARBEN BERGMAN 04/05/2024 11:42:21 Final Observation Date Value Abnormality Reference (Units ) Status Glucose Point of Care 04/05/2024 11:42:21 239 Above high normal 70-120 (mg/dL) Final Performing Location
--- OUTSIDE RECORDS SUMMARY | 2024-04-24 13:57 | External Medical Summary ---
Author Name Unknown Address Unknown Organization : Laboratory Report Ordering Provider Test Date Status ARBEN BERGMAN 04/04/2024 16:50:26 Final Observation Date Value Abnormality Reference (Units ) Status Glucose Point of Care 04/04/2024 16:50:26 189 Above high normal 70-120 (mg/dL) Final Performing Location
--- OUTSIDE RECORDS SUMMARY | 2024-04-24 13:58 | External Medical Summary ---
Author Name Unknown Address Unknown Organization K01:[place] [facility] [place] [facility] [address] [facility] [address] Laboratory Report Ordering Provider Test Date Status TIFFANY MCDOWELL 03/31/2024 22:25:00 Final Observation Date Value Abnormality Reference (Units ) Status WBC, Total 03/31/2024 22:25:00 9.64 4.00-10.80 (K/uL) Final RBC 03/31/2024 22:25:00 3.90 3.85-5.15 (M/uL) Final Hemoglobin 03/31/2024 22:25:00 12.4 12.0-15.3 (g/dL) Final HCT 03/31/2024 22:25:00 36.7 36.0-45.2 (%) Final MCV 03/31/2024 22:25:00 94.1 81.5-97.5 (fL) Final MCH 03/31/2024 22:25:00 31.8 27.0-34.0 (pg) Final MCHC 03/31/2024 22:25:00 33.8 32.0-36.0 (g/dL) Final RDW 03/31/2024 22:25:00 12.9 11.5-15.5 (%) Final Platelets 03/31/2024 22:25:00 243 140-400 (K/uL) Final MPV 03/31/2024 22:25:00 10.9 6.6-11.1 (fL) Final Nucleated erythrocytes/100 leukocytes [Ratio] in Blood by Automated count 03/31/2024 22:25:00 0 <=0 (/100 WBCs) Final Performing Location LAB[facility] [place] - [address] [place] [address]
--- OUTSIDE RECORDS SUMMARY | 2024-04-24 13:58 | External Medical Summary ---
Author Name Unknown Address Unknown Organization : Laboratory Report Ordering Provider Test Date Status ARBEN BERGMAN 04/01/2024 07:19:38 Final Observation Date Value Abnormality Reference (Units ) Status Glucose Point of Care 04/01/2024 07:19:38 191 Above high normal 70-120 (mg/dL) Final Performing Location
--- OUTSIDE RECORDS SUMMARY | 2024-04-24 13:58 | External Medical Summary ---
Author Name Unknown Address Unknown Organization : Laboratory Report Ordering Provider Test Date Status LAURIE FOFANA 03/31/2024 05:15:23 Final Observation Date Value Abnormality Reference (Units ) Status Glucose Point of Care 03/31/2024 05:15:23 188 Above high normal 70-120 (mg/dL) Final Performing Location
--- OUTSIDE RECORDS SUMMARY | 2024-04-24 13:58 | External Medical Summary ---
Author Name Unknown Address Unknown Organization : Laboratory Report Ordering Provider Test Date Status ARBEN BERGMAN 04/02/2024 07:35:12 Final Observation Date Value Abnormality Reference (Units ) Status Glucose Point of Care 04/02/2024 07:35:12 198 Above high normal 70-120 (mg/dL) Final Performing Location
--- OUTSIDE RECORDS SUMMARY | 2024-04-24 13:58 | External Medical Summary | Summary of Care ---
Author Name Unknown Organization [facility] Address [address] [place] [address] Phone [phone] Care Team Providers Care Dam Operator Name Role Phone Monika Loco Primary Care Provide r Reason for Visit * Reason Onset Date Comments Mycode Lab Reorder 04/01/2024 Encounter Details Date Type Department Care Team (Late st Contact Info) Description 04/01/2024 Orders Only [facility] Research Department [address] [place] [address] Jess Quiroz CHRA MyCode Research Other*[id number]* Allergies Active Allergy Reactions Criticality Noted Date Comments Levofloxacin Other (Please comment),Rash High 02/24/2017 Prolonged QT, interfered with Fleconide documented as of this encounter (statuses as of 04/01/2024) Medications LORAzepam (ATIVAN) 0.5 MG TabletIndication s:Follow-up examination, following other surgery TAKE 1 TABLET BY MOUTH NEEDED FOR ANXIETY. 20 Tab 0 5 Suspended Acetaminophen 325 MG Oral Tablet (Tylenol) Take 2 Tablets by mouth every 6 hours as needed for Pain, Mild or Fever >38C(100.5F) . 30 Tablet 3 Suspended Multivitamin Adult Extra C Oral Tablet Chewable Take 1 Tablet by mouth in the morning. 2 Suspended Vitamin B Complex-C Oral Capsule Take 1 Capsule by mouth daily at noon. 2 Suspended Potassium Chloride Shaina ER 10 MEQ Oral Tablet Extended Release TAKE 1 TABLET BY MOUTH THREE TIMES A WEEK 40 Tablet 3 2 Suspended Colchicine 0.6 MG Oral Tablet Take 1 tablet by mouth three times daily as needed 90 Tablet 07/17/2023 3:22 PM EDT 3 Suspended Ezetimibe 10 MG Oral Tablet (Zetia)Indicatio ns:Dyslipidemia, goal LDL below 100 Take 1 Tablet by mouth in the morning. 90 Tablet 3 11/28/2023 8:13 AM EDT 3 Suspended Rivaroxaban 15 MG Oral Tablet (Xarelto) Take one tablet by mouth every morning 90 Tablet 3 2024 5:12 PM EDT 3 Suspended Triamterene-HCTZ 75-50 MG Oral Tablet (Maxzide)Indicat ions:HTN, goal below 140/90 TAKE ONE TABLET BY MOUTH THREE DAYS PER WEEK. 40 Tablet 3 4 05/12/19 25 Suspended Furosemide 40 MG Oral Tablet (Lasix)Indicatio ns:Paroxysmal atrial fibrillation (HCC),Stasis edema TAKE ONE TABLET BY MOUTH EVERY DAY NEEDED FOR SWELLING 100 Tablet 3 03/13/2024 9:15 AM EST 4 06/28/19 25 Suspended Allopurinol 300 MG Oral Tablet (Zyloprim) 300 mg orally daily; 1 and 1/2 tabs daily 135 Tablet 2 10/14/2023 5:33 PM EDT 4 Suspended Metoprolol Tartrate 50 MG Oral Tablet (Lopressor)Indic ations:Paroxysma l atrial fibrillation (HCC),HTN, goal below 140/90 TAKE ONE TABLET BY MOUTH TWICE A DAY, IN THE MORNING AND BEFORE BEDTIME 180 Tablet 3 03/01/2024 3:06 PM EST 4 07/17/19 25 Suspended Ketoconazole 2 % External Shampoo (Nizoral) Use as shampoo on scalp at least 3 times weekly, lather, wait 5 min, then rinse 120 mL 5 11/03/2023 2:18 PM EDT 4 Suspended metFORMIN HCl ER 500 MG Oral Tablet Extended Release 24 Hour (Glucophage XR) take 2 tablets by mouth twice daily 360 Tablet 3 02/03/2024 1:26 PM EDT 4 Suspended Fluocinonide 0.05 % External Solution Apply to scalp nightly as needed 60 mL 3 11/04/2023 5:47 PM EDT 4 Suspended Flecainide Acetate 100 MG Oral Tablet (Tambocor)Indica tions:Paroxysmal atrial fibrillation (HCC),HTN, goal below 140/90 Take 1 Tablet by mouth in the morning and 1 Tablet before bedtime. 180 Tablet 3 12/29/2023 9:20 AM EDT 4 Suspended metroNIDAZOLE 0.75 % External Cream (MetroCream) Apply to affected areas of the face daily for maintenance, twice daily for flares 45 g 3 01/08/2024 5:49 PM EDT 4 Suspended Hydrocortisone 2.5 % External Cream Apply to affected areas on face (alar creases, left lateral nasal root) twice daily as needed 60 g 3 01/08/2024 5:49 PM EDT 4 Suspended Magnesium 500 MG Oral Capsule Take 1 Capsule by mouth in the morning. Suspended documented as of this encounter (statuses as of 04/01/2024) Active Problems Problem Noted Date Diagnosed Date Gait abnormality 04/01/2024 Impaired mobility and ADLs 04/01/2024 Acute ischemic left MCA stroke 03/30/2024 [...] #19 ICD-10 update of inactive term CHEST [id number] 12/17/2005 Atrial fibrillation 08/21/2005 nursing home current use of anticoagulant therapy 0 07/02/2005 Overview (01/20/2017): ICD-10 update of inactive term HISTORY OF CANCER OF BREAST 03/27/2005 documented as of this encounter (statuses as of 04/01/2024) Resolved Problems Problem Noted Date Diagnosed Date [...] as of this encounter (statuses as of 04/01/2024) Immunizations Name Administration Dates Next Due COVID-19 mRNA, LNP-s, No Pre serve, 2-Dose Series (Icecreamlabs) 01/18/2021,06/16/2020,05/26/2020 COVID-19, LNP-s, No Preserve , Villa-sucrose, [...] Industry Job Start Date Job End Date [employer]PECT[employer] Not on file Not on file Not [...] Assessment Author No 07/31/2022 5:35 PM Kirstin Ferderick RN * Do you have difficulty dressing [...] Author No 07/31/2022 5:35 PM EDT Kirstin Matsno RN documented as of this encounter Mental Status * Because of a physical, mental, or emotional condition, do you have serious difficulty concentrating, remembering, or making decisions? (5 years old or older) Answer Entry Date Author No 07/31/2022 5:35 PM EDT Kirstin Matson RN documented in this encounter Progress Notes * Jess Quiroz CHRA - 04/01/2024 1:34 PM EST MyCode lab reordered. documented in this encounter Plan of Treatment Upcoming Encounters Date Type Department Care Team (Late st Contact Info) Description 06/02/2024 9:20 AM EST Telemedicine Neurology [facility] [place] [address] [place] [address] Solitario Cordero MD [address], [place] [id number] [facility] [address] [place] [address] 06/10/2024 1:00 PM EST Office Visit Neurosurgery, [place] [address] [place] [address] Sunny Reyes PA-C [address] [place], [place] [id number] 11/03/2024 9:30 AM EDT Office Visit Gynecology/Oncology, [place] [address] [place] [address] Chiara Garcia PA-C [address] [facility] [place] [address] 01/06/2025 8:00 AM EDT Office Visit Cardiology, [facility] [address] [place] [address] Ralph Bauer MD [address] [place] [address] Scheduled Orders Name Type Priority Associated Diagnoses Orde r Schedule MYCODE SUBSEQUENT ADULT Lab Routine MyCode Research Other*[id number] Every 6 Months for 2 Occurrences starting 04/01/2024 until 04/21/2025 Health Maintenance Due Date Last Done Comments Depression Monitoring 1960 Albumin/Creatinine Ratio 01/22/1966 Diabetic Foot Exam 01/22/1966 COVID-19 Vaccine ( season) 2023 02/26/2022, 07/26/2021, 01/18/2021, Additional history exists HbA1c 09/28/2024 03/30/2024, 07/20, 02/20/2022, Additional history exists Diabetic Eye Exam 01/20/2025 01/21/2024, , 01/28/2023, Additional history exists GFR 04/01/2025 04/01/2024, 03/21, 03/30/2024, Additional history exists DTap/Tdap Vaccines (2 - [...] this encounter Medical Devices Implanted Type Area Lacing Presser Device Identifier Shelf Expiration Date Model / Serial / Lot Mesh C-Qur 4 X 6 Inch 08671 - [id number] Implanted:Qty: 1 on 12/17/2010 at OR [facility] [place] N/A: Abdomen [employer] [id number] / / [id number] documented as of this encounter Visit Diagnoses Diagnosis MyCode Research Other*[id number]- Primary documented in this encounter Advance Directives * Full Code (Latest Code Status on File) Date Activated Date Inactivated Comments 03/30/2024 10:30 AM This order r eflects the patients wishes [...] and were consensually agreed upon. Care Teams Dam Operator Relationship Specialty Start Date End Date Monika Loco CRNP [address] [place], [place] [address] [address] PCP - General Nurse Practitioner 12/08/18 documented as of this encounter
--- OUTSIDE RECORDS SUMMARY | 2024-04-24 13:58 | External Medical Summary ---
Author Name Unknown Address Unknown Organization : Laboratory Report Ordering Provider Test Date Status LAURIE FOFANA 03/30/2024 22:59:45 Final Observation Date Value Abnormality Reference (Units ) Status Glucose Point of Care 03/30/2024 22:59:45 150 Above high normal 70-120 (mg/dL) Final Performing Location
--- OUTSIDE RECORDS SUMMARY | 2024-04-24 13:58 | External Medical Summary ---
Author Name Unknown Address Unknown Organization K01:[place] [facility] [place] [address] [place] [address] Laboratory Report Ordering Provider Test Date Status TIFFANY MCDOWELL 03/31/2024 22:25:00 Final Warfarin Therapy
INR: 2 .0-3.0 conventional anticoagulation
INR: 2.5- 3.5 high intensity anticoagulation Observation Date Value Abnormality Reference (Units ) Status PT 03/31/2024 22:25:00 13.9 11.6-15.2 (seconds) Final INR 03/31/2024 22:25:00 1.1 0.8-1.2 Final Performing Location [place] [facility] [address] [place] [address]
--- OUTSIDE RECORDS SUMMARY | 2024-04-24 13:58 | External Medical Summary ---
Author Name Unknown Address Unknown Organization K01:LABORATORY [facility] [place] [address] [place] [address] Laboratory Report Ordering Provider Test Date Status JESSICA ANDREWSDARCY 03/30/2024 19:50:16 Final Observation Date Value Abnormality Reference (Units ) Status Methicillin resistant Staphylococcus aureus (MRSA) DNA [Presence] in Nose by DIAMOND with probe detection 03/30/2024 19:50:16 Negative Negative Final No Methicillin resistant Sta phylococcus aureus detected by PCR (amplified probe). Performing Location LABORATORY [facility] [place] - [address] [place] [address]
--- OUTSIDE RECORDS SUMMARY | 2024-04-24 13:58 | External Medical Summary ---
Author Name Unknown Address Unknown Organization : Laboratory Report Ordering Provider Test Date Status ARBEN BERGMAN 04/01/2024 21:22:22 Final Observation Date Value Abnormality Reference (Units ) Status Glucose Point of Care 04/01/2024 21:22:22 146 Above high normal 70-120 (mg/dL) Final Performing Location
--- OUTSIDE RECORDS SUMMARY | 2024-04-24 13:58 | External Medical Summary ---
Author Name Unknown Address Unknown Organization : Laboratory Report Ordering Provider Test Date Status ARBEN BERGMAN 03/31/2024 11:51:21 Final Observation Date Value Abnormality Reference (Units ) Status Glucose Point of Care 03/31/2024 11:51:21 222 Above high normal 70-120 (mg/dL) Final Performing Location
--- OUTSIDE RECORDS SUMMARY | 2024-04-24 13:58 | External Medical Summary | Continuity of Care Document ---
Author Name Unknown Organization [facility] [address] Address [address] [place], [place] [id number] Care Team Providers Care Client Support Associate Name Role Phone Monika Loco Primary Care Physician [phone] [id number] Date(s): 03/30/24 - 03/30/24 [facility] [address] [place], [place] [id number] Discharge Disposition: Home or Self Care Attending Physician: MD Sethi Raymond K Referring Physician: DO Al Kasandra A Social History Social History Type Response Sex Female Sex Representation Female (finding) Patient Care team information Care Team Personnel Name: ADINA Loco Candace Position: Referring Member Role: Primary Care Provider Address: [address] [place] [id number] [place]
--- OUTSIDE RECORDS SUMMARY | 2024-04-24 13:58 | External Medical Summary ---
Author Name Unknown Address Unknown Organization K01:LABORATORY [facility] [place] [address] [place] [address] Laboratory Report Ordering Provider Test Date Status TIFFANY MCDOWELL 03/31/2024 22:25:00 Final Anticoagulation may affect t esting. Refer to [facility] Test Catalog for a list of effects. Observation Date Value Abnormality Reference (Units ) Status aPTT panel - Platelet poor plasma 03/31/2024 22:25:00 27 21-38 (seconds) Final Performing Location LABORATORY [facility] [place] - [address] [place] [address]
--- OUTSIDE RECORDS SUMMARY | 2024-04-24 13:58 | External Medical Summary | Summary of Care ---
Author Name Unknown Organization [facility] Address [address] [place] [address] Phone [phone] Care Team Providers Care Grocery Team Member Name Role Phone Monika Loco Primary Care Provide r Reason for Visit * Reason Comments Retrieval Encounter Details Date Type Department Care Team (Late st Contact Info) Description 03/30/2024 4:00 AM EST Documentation [facility] [place] [address] [place] [address] 1, [facility] [address] [place], [place] [id number] Acute ischemic left MCA stroke (HCC)* Allergies Active Allergy Reactions Criticality Noted Date Comments Levofloxacin Other (Please comment),Rash High 02/24/2017 Prolonged QT, interfered with Fleconide documented as of this encounter (statuses as of 03/30/2024) Medications LORAzepam (ATIVAN) 0.5 MG TabletIndication s:Follow-up examination, following other surgery TAKE 1 TABLET BY MOUTH NEEDED FOR ANXIETY. 20 Tab 0 03/06/20 15 Suspended Rosuvastatin Calcium 5 MG Oral Tablet (Crestor)Indicat ions:Dyslipidemi a, goal LDL below 100 Take one tab three days per week. 30 Tablet 11 05/22/19 23 Suspended Additional Information Patient not taking.Reported on 09/26/2022 Acetaminophen 325 MG Oral Tablet (Tylenol) Take 2 Tablets by mouth every 6 hours as needed for Pain, Mild or Fever >38C(100.5F). 30 Tablet 08/04/19 23 Suspended Multivitamin Adult Extra C Oral Tablet Chewable Take 1 Tablet by mouth in the morning. 01/22/20 Suspended Vitamin B Complex-C Oral Capsule Take 1 Capsule by mouth daily at noon. 01/22/20 Suspended Potassium Chloride Shaina ER 10 MEQ Oral Tablet Extended Release TAKE 1 TABLET BY MOUTH THREE TIMES A WEEK 40 Tablet 3 01/03/20 22 Suspended Colchicine 0.6 MG Oral Tablet Take 1 tablet by mouth three times daily as needed 90 Tablet 4 3:22 PM EDT 02/08/20 23 Suspended Additional Information Patient not taking.Reported on 11/04/2023 Ezetimibe 10 MG Oral Tablet (Zetia)Indicatio ns:Dyslipidemia, goal LDL below 100 Take 1 Tablet by mouth in the morning. 90 Tablet 3 4 8:13 AM EDT 03/04/20 23 Suspended Rivaroxaban 15 MG Oral Tablet (Xarelto) Take one tablet by mouth every morning 90 Tablet 3 4 5:12 PM EDT 03/18/20 23 Suspended Triamterene-HCTZ 75-50 MG Oral Tablet (Maxzide)Indicat ions:HTN, goal below 140/90 TAKE ONE TABLET BY MOUTH THREE DAYS PER WEEK. 40 Tablet 3 05/13/19 24 025 Suspended Furosemide 40 MG Oral Tablet (Lasix)Indicatio ns:Paroxysmal atrial fibrillation (HCC),Stasis edema TAKE ONE TABLET BY MOUTH EVERY DAY NEEDED FOR SWELLING 100 Tablet 3 4 9:15 AM EST 06/06/19 24 025 Suspended Allopurinol 300 MG Oral Tablet (Zyloprim) 300 mg orally daily; 1 and 1/2 tabs daily 135 Tablet 2 4 5:33 PM EDT 07/14/19 24 Suspended Metoprolol Tartrate 50 MG Oral Tablet (Lopressor)Indic ations:Paroxysma l atrial fibrillation (HCC),HTN, goal below 140/90 TAKE ONE TABLET BY MOUTH TWICE A DAY, IN THE MORNING AND BEFORE BEDTIME 180 Tablet 3 4 3:06 PM EST 07/17/19 24 025 Suspended Ketoconazole 2 % External Shampoo (Nizoral) Use as shampoo on scalp at least 3 times weekly, lather, wait 5 min, then rinse 120 mL 5 4 2:18 PM EDT 08/07/19 24 Suspended metFORMIN HCl ER 500 MG Oral Tablet Extended Release 24 Hour (Glucophage XR) take 2 tablets by mouth twice daily 360 Tablet 3 4 1:26 PM EDT 09/04/19 24 Suspended Fluocinonide 0.05 % External Solution Apply to scalp nightly as needed 60 mL 3 4 5:47 PM EDT 11/03/19 24 Suspended Magnesium 200 MG Oral Tablet Chewable Take by mouth. Suspe nded Flecainide Acetate 100 MG Oral Tablet (Tambocor)Indica tions:Paroxysmal atrial fibrillation (HCC),HTN, goal below 140/90 Take 1 Tablet by mouth in the morning and 1 Tablet before bedtime. 180 Tablet 3 4 9:20 AM EDT 12/10/19 24 Suspended metroNIDAZOLE 0.75 % External Cream (MetroCream) Apply to affected areas of the face daily for maintenance, twice daily for flares 45 g 3 4 5:49 PM EDT 01/08/20 24 Suspended Hydrocortisone 2.5 % External Cream Apply to affected areas on face (alar creases, left lateral nasal root) twice daily as needed 60 g 3 4 5:49 PM EDT 01/08/20 24 Suspended documented as of this encounter (statuses as of 03/30/2024) Active Problems Problem Noted Date Diagnosed Date Acute ischemic left MCA stroke 03/30/2024 Right [...] #19 ICD-10 update of inactive term CHEST [id number] 12/17/2005 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 0 07/02/2005 Overview (01/20/2017): ICD-10 update of inactive term HISTORY OF CANCER OF BREAST 03/27/2005 documented as of this encounter (statuses as of 03/30/2024) Resolved Problems Problem Noted Date Diagnosed Date [...] as of this encounter (statuses as of 03/30/2024) Immunizations Name Administration Dates Next Due COVID-19 [...] 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 [facility] [address] [address] Point of Continuous Linter Drier Operator (zip code required): Hospital - [facility] - [address] [facility] [address] [facility]; [place] [address] Destination (Specify Name/Address): [facility] - [address]; [place] [address] Patient transported to nearest facility (capable of mgmt for Pt's condition): YES Total number of Loaded Miles: 79.1 miles Mode of Transport: Ground ALS1 ALS Assessment (Community Relations Representative) IV Completed by: Fransisco Barker RN documented in this encounter Plan of Treatment Upcoming Encounters Date Type Department Care Team (Late st Contact Info) Description 03/31/2024 10:00 AM EST Hospital Encounter CRS Waiting [facility], Cardiac Recovery Suite Waiting Unit, H [address] [place] [address] Paty Macias MD [address] [place] [address] 03/31/2024 10:00 AM EST - 03/31/2024 10:30 AM EST Surgery CRS Waiting [facility], Cardiac Recovery Suite Waiting Unit, [address] [place] [phone] [place], Cardiac Garbage Collection Supervisor [address] [place] [address] OBSERVATION 06/10/2024 1:00 PM EST Office Visit Neurosurgery, [place] [address] [place] [address] Sunny Reyes PA-C [address] [place] [address] 11/03/2024 9:30 AM EDT Office Visit Gynecology/Oncology, [place] [address] [place] [address] Chiara Garcia PA-C [address] [place] [address] 01/06/2025 8:00 AM EDT Office Visit Cardiology, [facility] [address] [facility] [place] [address] Ralph Bauer MD [address] [facility] [place] [address] Scheduled Procedures Name Priority Associated Diagnoses Date/Ti me CATHETER PLACEMENT INTERNAL CAROTID ARTERY Pain 03/30/2024 3:45 AM EST CATHETER PLACEMENT VERTEBRAL ARTERY, Pain 03/30/2024 3:45 AM EST OBSERVATION Presence of Watchman left atrial appendage closure device 03/31/2024 10:00 AM EST Health Maintenance Due Date Last Done Comments Depression Monitoring 1960 Albumin/Creatinine Ratio 01/22/1966 Diabetic Foot Exam 01/22/1966 COVID-19 Vaccine ( season) 2023 02/26/2022, 07/26/2021, 01/18/2021, Additional history exists HbA1c 09/28/2024 03/30/2024, 04/04/2022, 02/20/2022, Additional history exists Diabetic Eye Exam 01/20/2025 01/21/2024, , 01/28/2023, Additional history exists GFR 03/30/2025 03/30/2024, 09/19, 08/24/2022, Additional history exists DTap/Tdap Vaccines (2 - [...] this encounter Medical Devices Implanted Type Area Priest Device Identifier Shelf Expiration Date Model / Serial / Lot Mesh C-Qur 4 X 6 Inch [id number] - [id number] Implanted:Qty: 1 on 12/17/2010 at [place] [facility] N/A: Abdomen [employer] [id number] / / [id number] documented as of this encounter Visit Diagnoses Diagnosis Acute ischemic left MCA stroke (HCC)- Primary Unspecified cerebral artery occlusion with cerebral infarction Presence of Watchman left atrial appendage closure device documented in this encounter Advance Directives * [...] and were consensually agreed upon. Care Teams Grocery Team Member Relationship Specialty Start Date End Date Monika Loco CRNP [address] [place], [place] [address] [address] PCP - General Nurse Practitioner 12/08/18 documented as of this encounter
--- OUTSIDE RECORDS SUMMARY | 2024-04-24 13:58 | External Medical Summary ---
Author Name Unknown Address Unknown Organization : Laboratory Report Ordering Provider Test Date Status LAURIE FOFANA 03/30/2024 17:58:51 Final Observation Date Value Abnormality Reference (Units ) Status Glucose Point of Care 03/30/2024 17:58:51 131 Above high normal 70-120 (mg/dL) Final Performing Location
--- OUTSIDE RECORDS SUMMARY | 2024-04-24 13:58 | External Medical Summary ---
Author Name Unknown Address Unknown Organization : Laboratory Report Ordering Provider Test Date Status ARBEN BERGMAN 04/01/2024 16:25:59 Final Observation Date Value Abnormality Reference (Units ) Status Glucose Point of Care 04/01/2024 16:25:59 205 Above high normal 70-120 (mg/dL) Final Performing Location
--- OUTSIDE RECORDS SUMMARY | 2024-04-24 13:58 | External Medical Summary ---
Author Name Unknown Address Unknown Organization K01:[facility] [place] [address] [place] [address] Laboratory Report Ordering Provider Test Date Status SHAKEEL GIL 04/01/2024 07:21:00 Final Observation Date Value Abnormality Reference (Units ) Status WBC, Total 04/01/2024 07:21:00 8.55 4.00-10.80 (K/uL) Final RBC 04/01/2024 07:21:00 4.02 3.85-5.15 (M/uL) Final Hemoglobin 04/01/2024 07:21:00 12.6 12.0-15.3 (g/dL) Final HCT 04/01/2024 07:21:00 37.2 36.0-45.2 (%) Final MCV 04/01/2024 07:21:00 92.5 81.5-97.5 (fL) Final MCH 04/01/2024 07:21:00 31.3 27.0-34.0 (pg) Final MCHC 04/01/2024 07:21:00 33.9 32.0-36.0 (g/dL) Final RDW 04/01/2024 07:21:00 12.7 11.5-15.5 (%) Final Platelets 04/01/2024 07:21:00 236 140-400 (K/uL) Final MPV 04/01/2024 07:21:00 11.8 6.6-11.1 (fL) Final Nucleated erythrocytes/100 leukocytes [Ratio] in Blood by Automated count 04/01/2024 07:21:00 0 <=0 (/100 WBCs) Final Performing Location [facility] [place] [address] [place] [address]
--- OUTSIDE RECORDS SUMMARY | 2024-04-24 13:58 | External Medical Summary ---
Author Name Unknown Address Unknown Organization K01:[facility]ORY [facility] - [address] [facility] [address] Laboratory Report Ordering Provider Test Date Status BIRDIE ANDREWS 03/31/2024 04:24:00 Final Observation Date Value Abnormality Reference (Units ) Status Triglyceride 03/31/2024 04:24:00 235 Above high normal <=174 (mg/dL) Final Triglyceride Reference Range s (mg/dL):
<150 Acceptable
150-174 Borderline high
175-499 High
>=500 Very high Cholesterol 03/31/2024 04:24:00 191 <200 (mg /dL) Final Total Cholesterol Reference Ranges (mg/dL):
<200 Desirable
200-239 Borderline high
>=240 High HDL 03/31/2024 04:24:00 29 Below low normal >49 (mg/dL) Final HDL Cholesterol Reference Ra nges (mg/dL):
>=60 High (Desirable)
<50 Low (Undesirable) For Females
<40 Low (Undesirable) For Males NON-HDL CHOLESTEROL 03/31/2024 04:24:00 162 Above high normal <=159 (mg/dL) Final Non-HDL Cholesterol Referenc e Range (mg/dL):
<100 Target level for high risk ASCVD patient
<130 Optimal for general population
130-159 Near optimal for general population
160-189 Borderline High
190-219 High
>=220 Very High LDL, (calculated) 03/31/2024 04:24:00 115 <= 129 (mg/dL) Final LDL Cholesterol Reference Ra nges (mg/dL):
<70 Target level for high risk ASCVD patient
<100 Optimal for general population
100-129 Near optimal for general population
130-159 Borderline high
160-189 High
>=190 Very high Performing Location [facility]ORY [facility] - [address] [facility] [address]
--- OUTSIDE RECORDS SUMMARY | 2024-04-24 13:58 | External Medical Summary ---
Author Name Unknown Address Unknown Organization : Laboratory Report Ordering Provider Test Date Status ARBEN BERGMAN 04/01/2024 11:26:01 Final Observation Date Value Abnormality Reference (Units ) Status Glucose Point of Care 04/01/2024 11:26:01 193 Above high normal 70-120 (mg/dL) Final Performing Location
--- OUTSIDE RECORDS SUMMARY | 2024-04-24 13:58 | External Medical Summary ---
Author Name Unknown Address Unknown Organization K01:[facility] [place] [facility] [address] [facility] [place] [address] Laboratory Report Ordering Provider Test Date Status SHAKEEL GIL 04/02/2024 05:56:00 Final Observation Date Value Abnormality Reference (Units ) Status WBC, Total 04/02/2024 05:56:00 9.18 4.00-10.80 (K/uL) Final RBC 04/02/2024 05:56:00 4.38 3.85-5.15 (M/uL) Final Hemoglobin 04/02/2024 05:56:00 13.8 12.0-15.3 (g/dL) Final HCT 04/02/2024 05:56:00 41.3 36.0-45.2 (%) Final MCV 04/02/2024 05:56:00 94.3 81.5-97.5 (fL) Final MCH 04/02/2024 05:56:00 31.5 27.0-34.0 (pg) Final MCHC 04/02/2024 05:56:00 33.4 32.0-36.0 (g/dL) Final RDW 04/02/2024 05:56:00 12.5 11.5-15.5 (%) Final Platelets 04/02/2024 05:56:00 276 140-400 (K/uL) Final MPV 04/02/2024 05:56:00 11.6 6.6-11.1 (fL) Final Nucleated erythrocytes/100 leukocytes [Ratio] in Blood by Automated count 04/02/2024 05:56:00 0 <=0 (/100 WBCs) Final Performing Location [facility] [place] [address] [place] [address]
--- OUTSIDE RECORDS SUMMARY | 2024-04-24 13:58 | External Medical Summary | Summary of Care ---
Author Name Unknown Organization [facility] Address [address] [place] [address] Phone [phone] Care Team Providers Care Overhead Worker Name Role Phone Monika Loco Primary Care Provide r Encounter Details Date Type Department Care Team (Latest Contact Info) Description 03/30/2024 2:20 AM EST - 03/30/2024 7:33 AM EST Hospital Encounter Radiology Film [facility] [address] [place] [address] Arrived Discharge Disposition: Home - Self Care Allergies Active Allergy Reactions Criticality Noted Date Comments Levofloxacin Other (Please comment),Rash High 02/24/2017 Prolonged QT, interfered with Fleconide documented as of this encounter (statuses as of 04/01/2024) Medications LORAzepam (ATIVAN) 0.5 MG TabletIndication s:Follow-up examination, following other surgery TAKE 1 TABLET BY MOUTH NEEDED FOR ANXIETY. 20 Tab 0 03/06/20 15 Suspended Acetaminophen 325 MG Oral Tablet (Tylenol) Take 2 Tablets by mouth every 6 hours as needed for Pain, Mild or Fever >38C(100.5F). 30 Tablet 08/04/19 23 Suspended Multivitamin Adult Extra C Oral Tablet Chewable Take 1 Tablet by mouth in the morning. 01/22/20 22 Suspended Vitamin B Complex-C Oral Capsule Take 1 Capsule by mouth daily at noon. 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 (15 years old or older) Answer Date of Assessment Author No 07/31/2022 5:35 PM EDT Kirstni Matson RN documented as of this encounter [...] Description 06/02/2024 9:20 AM EST Telemedicine Neurology [address] [place] [address] Solitario Cordero MD [address] [place], [place] [phone] [facility] [address] [place] [address] 06/10/2024 1:00 PM EST Office Visit Neurosurgery, [place] [address] [place], [place] [id number] Sunny Reyes PA-C [address] [place], [place] [id number] 11/03/2024 9:30 AM EDT Office Visit Gynecology/Oncology, [place] [address] [place], [place] [phone] Chiara Garcia PA-C [address] [place] [address] 01/06/2025 8:00 AM EDT Office Visit [facility], [facility] [address] [facility] [place] [address] Ralph Bauer MD [address] [facility] [place] [address] Health Maintenance Due Date Last Done Comments [...] this encounter Medical Devices Implanted Type Area Agriscience Technology Instructor Device Identifier Shelf Expiration Date Model / Serial / Lot Mesh C-Qur 4 X 6 Inch [id number] - [id number] Implanted:Qty: 1 on 12/17/2010 at [place] [facility] N/A: Abdomen [employer] [id number] / / [id number] documented as of this encounter Procedures Procedure Name Priority Date/Time Associated Diagnosis Comments RADIOLOGY EXAM - CT (IMAGES ONLY, NO REPORT) Routine 03/30/2024 2:20 AM EST documented in this encounter Results * RADIOLOGY EXAM - CT (IMAGES ONLY, NO REPORT) (03/30/2024 2:20 AM EST) 03/30/2024 2:08 AM EST Narrative Scheduling, Silent - 03/31/2024 12:24 PM EST This is an imaging study not interpreted or resulted by a [facility] or [facility] radiologist. us Ceasar Chisholm MD RAD CT Final R esult documented in this encounter Advance Directives * [...] and were consensually agreed upon. Care Teams Overhead Worker Relationship Specialty Start Date End Date Monika Loco CRNP [address] [place], [place] [address] [address] PCP - General Nurse Practitioner 12/08/18 documented as of this encounter
--- OUTSIDE RECORDS SUMMARY | 2024-04-24 13:58 | External Medical Summary ---
Author Name Unknown Address Unknown Organization : Laboratory Report Ordering Provider Test Date Status ARBEN BERGMAN 04/02/2024 12:04:03 Final Observation Date Value Abnormality Reference (Units ) Status Glucose Point of Care 04/02/2024 12:04:03 224 Above high normal 70-120 (mg/dL) Final Performing Location
--- OUTSIDE RECORDS SUMMARY | 2024-04-24 13:58 | External Medical Summary ---
Author Name Unknown Address Unknown Organization K01:[facility]ORY [facility] [place] - [address] [place] [address] Laboratory Report Ordering Provider Test Date Status SHAKEEL GIL 04/02/2024 05:56:00 Final Observation Date Value Abnormality Reference (Units ) Status BUN 04/02/2024 05:56:00 17 6-20 (mg/dL) Final Creatinine 04/02/2024 05:56:00 0.6 0.5-1.0 (mg/dL) Final Glomerular filtration rate/1.73 sq M.predicted [Volume Rate/Area] in Serum, Plasma or Blood by Creatinine-based formula (CKD-EPI) 04/02/2024 05:56:00 >90 >=60 (mL/min) Final eGFR is calculated based on the CKD-EPI 2020 equation. Sodium 04/02/2024 05:56:00 135 135-146 (m mol/L) Final Potassium 04/02/2024 05:56:00 4.5 3.5-5.1 (m mol/L) Final Cl 04/02/2024 05:56:00 104 98-107 (mm ol/L) Final CO2 04/02/2024 05:56:00 20 Below low normal 22- 32 (mmol/L) Final Anion gap 04/02/2024 05:56:00 11 7-15 (mmol /L) Final Glucose 04/02/2024 05:56:00 184 Above high normal 70 -120 (mg/dL) Final Calcium 04/02/2024 05:56:00 8.3 Below low normal 8.4 -10.2 (mg/dL) Final Performing Location LAB[facility]ORY [facility] - [address] [place] [address]
--- OUTSIDE RECORDS SUMMARY | 2024-04-24 13:58 | External Medical Summary ---
Author Name Unknown Address Unknown Organization K01:LABORATORY [facility] [place] - [facility] [address] [facility] [address] [place] [address] Laboratory Report Ordering Provider Test Date Status BIRDIE ANDREWS 03/31/2024 04:24:00 Final Observation Date Value Abnormality Reference (Units ) Status WBC, Total 03/31/2024 04:24:00 8.81 4.00-10.80 (K/uL) Final RBC 03/31/2024 04:24:00 3.91 3.85-5.15 (M/uL) Final Hemoglobin 03/31/2024 04:24:00 12.3 12.0-15.3 (g/dL) Final HCT 03/31/2024 04:24:00 37.4 36.0-45.2 (%) Final MCV 03/31/2024 04:24:00 95.7 81.5-97.5 (fL) Final MCH 03/31/2024 04:24:00 31.5 27.0-34.0 (pg) Final MCHC 03/31/2024 04:24:00 32.9 32.0-36.0 (g/dL) Final RDW 03/31/2024 04:24:00 12.7 11.5-15.5 (%) Final Platelets 03/31/2024 04:24:00 258 140-400 (K/uL) Final MPV 03/31/2024 04:24:00 11.5 6.6-11.1 (fL) Final Nucleated erythrocytes/100 leukocytes [Ratio] in Blood by Automated count 03/31/2024 04:24:00 0 <=0 (/100 WBCs) Final Performing Location LAB[facility]ATORY [facility] [place] - [address] [place] [address]
--- OUTSIDE RECORDS SUMMARY | 2024-04-24 13:58 | External Medical Summary | Summary of Care ---
Author Name Unknown Organization [facility] Address [address] [place] [address] Phone [phone] Care Team Providers Care Crib Clerk Name Role Phone Monika Loco Primary Care Provide r Reason for Visit * Auth/Cert Specialty Diagnoses / Procedures Referred By Abdias man Referred To Contact Diagnoses Pain Pain [R52] Procedures CAROTID (INTERNAL) ARTERY CATHETHER PLACEMENT VERTEBRAL ARTERY CATHETER PLACEMENT CATHETER PLACEMENT INTERNAL CAROTID ARTERY CATHETER PLACEMENT VERTEBRAL ARTERY, Yannick Monteiro MD, PhD [address] [place] [address] Phone: tel: fax: [place] [facility] [place] [facility] [place] [facility] [address] [place] [address] Phone: tel: Referral ID Status Reason Start Date Expiration Date Visits Re quested Visits Authorized [id number] Encounter Details Date Type Department Care Team (Latest Contact Info) Description 03/30/2024 10:54 AM EST - 03/30/2024 11:59 PM EST Hospital Encounter Cardiac Studies [facility] [address] [place] [address] Discharge Disposition: Home - Self Care Allergies Active Allergy Reactions Criticality Noted Date Comments Levofloxacin Other (Please comment),Rash High 02/24/2017 Prolonged QT, interfered with Fleconide documented as of this encounter (statuses as of 03/31/2024) Medications LORAzepam (ATIVAN) 0.5 MG TabletIndication s:Follow-up [...] 1 Tablet by mouth in the morning. Suspended Flecainide Acetate 100 MG Oral Tablet [...] 4 5:49 PM EDT 01/08/20 24 Suspended Doxycycline Monohydrate 100 MG Oral Capsule Take 1 Capsule by mouth in the morning and 1 Capsule before bedtime. Do all this for 14 days. 28 Capsule 4 4:17 PM EDT 01/08/20 24 024 Discontinued (Medication List Clean Up) Hydrocortisone 2.5 % External Cream Apply to affected areas on face (alar creases, left lateral nasal root) twice daily as needed 60 g 3 4 5:49 PM EDT 01/08/20 24 Suspended documented as of this encounter (statuses as of 03/31/2024) Active Problems Problem Noted Date Diagnosed Date [...] L midback 04/2017, BCC L clavicle 2008 Obesity, morbid (more than 1 00 lbs over ideal weight or BMI > 40) 10/03/2009 Overview (07/10/2015): Per Obesity Protocol, #19 ICD-10 update of inactive term CHEST [id number] 12/17/2005 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 0 07/02/2005 Overview (01/20/2017): ICD-10 update of inactive term HISTORY OF CANCER OF BREAST 03/27/2005 documented as of this encounter (statuses as of 03/31/2024) Resolved Problems Problem Noted Date Diagnosed Date [...] as of this encounter (statuses as of 03/31/2024) Immunizations Name Administration Dates Next Due COVID-19 mRNA, LNP-s, No Pre serve, 2-Dose Series ([employer]) 01/18/2021,06/16/2020,05/26/2020 COVID-19, LNP-s, No Preserve , Villa-sucrose, [...] 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 Not [...] Entry Date Author No 07/31/2022 5:35 PM Kirstin Frederick RN documented in this encounter Plan of Treatment Upcoming Encounters Date Type Department Care Team (Late st Contact Info) Description 06/02/2024 9:20 AM EST Telemedicine Neurology [address] [place] [phone] Solitario Cordero MD [address] [facility] [place] [address] [facility] [address] [facility] [place] [address] 06/10/2024 1:00 PM EST Office Visit Neurosurgery, [place] [address] [place] [address] Sunny Reyes PA-C [address] [place], [place] [phone] 11/03/2024 9:30 AM EDT Office Visit Gynecology/Oncology, [place] [address] [place], [place] [phone] Chiara Garcia PA-C [address] [place] [address] 01/06/2025 8:00 AM EDT Office Visit Cardiology, [facility] [address] [place] [address] Ralph Bauer MD [address] [place] [address] Health Maintenance Due Date Last Done Comments Depression Monitoring 1960 Albumin/Creatinine Ratio 01/22/1966 Diabetic Foot Exam 01/22/1966 COVID-19 Vaccine ( season) 2023 02/26/2022, 07/26/2021, 01/18/2021, Additional history exists HbA1c 09/28/2024 03/30/2024, 07/20, 02/20/2022, Additional history exists Diabetic Eye Exam 01/20/2025 01/21/2024, , 01/28/2023, Additional history exists GFR 03/31/2025 03/31/2024, 03/21, 10/01/2022, Additional history exists DTap/Tdap Vaccines (2 - [...] this encounter Medical Devices Implanted Type Area Storage Garage Attendant Device Identifier Shelf Expiration Date Model / Serial / Lot Mesh C-Qur 4 X 6 Inch [id number] - [id number] Implanted:Qty: 1 on 12/17/2010 at [facility] N/A: Abdomen [employer] [id number] / / [id number] documented as of this encounter Procedures Procedure Name Priority Date/Time Associated Diagnosis Comments ECHO, COMPLETE (2D), TRANS-THORACIC Routine 03/30/2024 2:10 PM EST Stroke (HCC) documented in this encounter Visit Diagnoses Diagnosis HISTORY OF CANCER OF BREAST- Primary Personal history of malignant neoplasm of breast Obesity, morbid (more than 100 lbs over ideal weight or BMI > 40) (HCC) Morbid obesity HTN, goal below 140/90 Unspecified essential hypertension documented in this encounter Administered Medications Inactive Administered Medications - up to 3 most recent administrations Medication Order MAR Action Action Date Dose Rate Site perflutren lipid microsphere inj SUSP 1.956 mg 1.956 mg, Intravenous, ONCE PRN Other, For Echo Only - Suboptimal Echo Images, Starting on 03/30/24 at 1235, Until 03/30/24 at 1434, For 2 hours, Administer IVP over 45 seconds, Cardiac Studies_HODHOVIndications:Perso nal history of malignant neoplasm of breast,Obesity, morbid (more than 100 lbs over ideal weight or BMI > 40) (HCC),HTN, goal below 140/90 Given 03/30/2024 12:35 PM EST 1.956 mg documented in this encounter Advance Directives * [...] and were consensually agreed upon. Care Teams Crib Clerk Relationship Specialty Start Date End Date Monika Loco CRNP [address] [place], [place] [address] [address] PCP - General Nurse Practitioner 12/08/18 documented as of this encounter
--- OUTSIDE RECORDS SUMMARY | 2024-04-24 13:58 | External Medical Summary ---
Author Name Unknown Address Unknown Organization [id number]:LABORATORY [facility] [place] - [address] [place] [address] Laboratory Report Ordering Provider Test Date Status SHAKEEL GIL 04/01/2024 07:21:00 Final Observation Date Value Abnormality Reference (Units ) Status BUN 04/01/2024 07:21:00 16 6-20 (mg/dL) Final Creatinine 04/01/2024 07:21:00 0.7 0.5-1.0 (mg/dL) Final Glomerular filtration rate/1.73 sq M.predicted [Volume Rate/Area] in Serum, Plasma or Blood by Creatinine-based formula (CKD-EPI) 04/01/2024 07:21:00 >90 >=60 (mL/min) Final eGFR is calculated based on the CKD-EPI 2020 equation. Sodium 04/01/2024 07:21:00 137 135-146 (m mol/L) Final Potassium 04/01/2024 07:21:00 4.5 3.5-5.1 (m mol/L) Final Cl 04/01/2024 07:21:00 106 98-107 (mm ol/L) Final CO2 04/01/2024 07:21:00 20 Below low normal 22- 32 (mmol/L) Final Anion gap 04/01/2024 07:21:00 11 7-15 (mmol /L) Final Glucose 04/01/2024 07:21:00 198 Above high normal 70 -120 (mg/dL) Final Calcium 04/01/2024 07:21:00 8.2 Below low normal 8.4 -10.2 (mg/dL) Final Performing Location LABORATORY [facility] [place] - [address] [place] [address]
--- OUTSIDE RECORDS SUMMARY | 2024-04-24 13:58 | External Medical Summary | Summary of Care ---
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 0 07/02/2005 [...] 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 Not [...] Description 06/02/2024 9:20 AM EST Telemedicine Neurology [place] [phone] Solitario Cordero MD [address] [place], [place] [phone] [facility] [address] [place] [address] 06/10/2024 1:00 PM EST Office Visit Neurosurgery, [place] [address] [facility] [place], [place] [phone] Sunny Reyes PA-C [address] [place], [place] [phone] 11/03/2024 9:30 AM EDT Office Visit Gynecology/Oncology, [place] [address] [place] [address] Chiara Garcia PA-C [address] [facility] [place] [address] 01/06/2025 8:00 AM EDT Office Visit Cardiology, [facility] [address] [place] [address] Ralph Bauer MD [address] [place] [address] Health Maintenance Due Date Last Done Comments [...] this encounter Medical Devices Implanted Type Area Magazine Publisher Device Identifier Shelf Expiration Date Model / Serial / Lot Mesh C-Qur 4 X 6 Inch [id number] - [id number] Implanted:Qty: 1 on 12/17/2010 at [place] [facility] [place]: Abdomen [employer] [id number] / / [id number] documented as of this encounter Procedures Procedure Name Priority Date/Time Associated Diagnosis Comments RADIOLOGY EXAM - CT (IMAGES ONLY, NO REPORT) Routine 03/30/2024 2:10 AM EST documented in this encounter Results * RADIOLOGY EXAM - CT (IMAGES ONLY, NO REPORT) (03/30/2024 2:10 AM EST) 03/30/2024 2:08 AM EST Narrative Scheduling, Silent - 03/30/2024 8:52 AM EST This is an imaging study not interpreted or resulted by a Influitive or Influitive contracted radiologist. Ceasar Chisholm MD RAD CT Final R [...] and were consensually agreed upon. Care Teams Wood Planer Relationship Specialty Start Date End Date Monika Loco CRNP [address] [place], [place] [address] [address] PCP - General Nurse Practitioner 12/08/18 documented as of this encounter
--- OUTSIDE RECORDS SUMMARY | 2024-04-24 13:58 | External Medical Summary ---
Author Name Unknown Address Unknown Organization : Laboratory Report Ordering Provider Test Date Status ARBEN BERGMAN 03/31/2024 17:07:46 Final Observation Date Value Abnormality Reference (Units ) Status Glucose Point of Care 03/31/2024 17:07:46 168 Above high normal 70-120 (mg/dL) Final Performing Location
--- OUTSIDE RECORDS SUMMARY | 2024-04-24 13:58 | External Medical Summary | Summary of Care ---
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 0 07/02/2005 [...] 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 Not [...] [place] [phone] Solitario Cordero MD [address] [place], [place] [phone] [facility] [address] [place] [address] 06/10/2024 1:00 PM EST Office Visit Neurosurgery, [place] [address] [facility] [place], [place] [phone] Sunny Reyes PA-C [address] [place], [place] [phone] 11/03/2024 9:30 AM EDT Office Visit Gynecology/Oncology, [place] [address] [place] [address] Chiara Garcia PA-C [address] [facility] [place] [address] 01/06/2025 8:00 AM EDT Office Visit Cardiology, [facility] [address] [place] [address] Ralph Bauer MD [address] [place] [address] Health Maintenance Due Date Last Done Comments [...] this encounter Medical Devices Implanted Type Area Filter Bed Placer Device Identifier Shelf Expiration Date Model / Serial / Lot Mesh C-Qur 4 X 6 Inch [id number] - [id number] [place]planted:Q[place] 1 [place] 12[place]17/[place] [facility] [place]: Abdomen [employer] [id number] / / [id number] documented as of this encounter Procedures Procedure Name Priority Date/Time Associated Diagnosis Comments RADIOLOGY EXAM - CT (IMAGES ONLY, NO REPORT) Routine 03/30/2024 2:15 AM EST documented in this encounter Results * RADIOLOGY EXAM - CT (IMAGES ONLY, NO REPORT) (03/30/2024 2:15 AM EST) 03/30/2024 2:08 AM EST Narrative Scheduling, Silent - 03/30/2024 10:13 AM EST This is an imaging study not interpreted or resulted by a 5k Fans or [employer] Fans contracted radiologist. Ceasar Chisholm MD RAD CT [...] and were consensually agreed upon. Care Teams Pr Specialist Relationship Specialty Start Date End Date Monika Loco CRNP [address] [place], [place] [address] [address] PCP - General Nurse Practitioner 12/08/18 documented as of this encounter
--- OUTSIDE RECORDS SUMMARY | 2024-04-24 13:58 | External Medical Summary ---
Author Name Unknown Address Unknown Organization [id number]:[facility]ORY [facility] [place] [address] [place] [address] Laboratory Report Ordering Provider Test Date Status JENIFER PAGAN 03/31/2024 04:24:00 Final Observation Date Value Abnormality Reference (Units ) Status Troponin T 03/31/2024 04:24:00 18 Above high normal < =14 (ng/L) Final Performing Location LABORATORY C - [address] [place] [address]
--- OUTSIDE RECORDS SUMMARY | 2024-04-24 13:58 | External Medical Summary ---
Author Name Unknown Address Unknown Organization : Laboratory Report Ordering Provider Test Date Status ARBEN BERGMAN 03/31/2024 21:01:22 Final Observation Date Value Abnormality Reference (Units ) Status Glucose Point of Care 03/31/2024 21:01:22 180 Above high normal 70-120 (mg/dL) Final Performing Location
--- OUTSIDE RECORDS SUMMARY | 2024-04-24 13:58 | External Medical Summary | Summary of Care ---
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 0 07/02/2005 [...] mRNA, LNP-s, No Pre serve, 2-Dose Series ([employer]) 01/18/2021,06/16/2020,05/26/2020 COVID-19, LNP-s, No Preserve , Villa-sucrose, [...] 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 Not [...] [place] [phone] Solitario Cordero MD [address] [place], [place] [phone] [facility] [address] [place] [address] 06/10/2024 1:00 PM EST Office Visit Neurosurgery, [place] [address] [place] [address] Sunny Reyes PA-C [address] [place] [address] 11/03/2024 9:30 AM EDT Office Visit Gynecology/Oncology, [place] [address] [place], [place] [phone] Chiara Garcia PA-C [address] [place] [address] 01/06/2025 8:00 AM EDT Office Visit Cardiology, [facility] [address] [place] [address] Ralph Bauer MD [address] [place] [address] Health Maintenance Due Date Last Done Comments [...] this encounter Medical Devices Implanted Type Area Car Rental Agency Manager Device Identifier Shelf Expiration Date Model / Serial / Lot Mesh C-Qur 4 X 6 Inch 16975 - [id number] Implanted:Qty: 1 on 12/17/2010 at [place] [facility] [place] N/A: Abdomen [employer] [id number] / / [id number] documented as of this encounter Procedures [...] interpreted or resulted by a [facility] or [facility] contracted radiologist. us Ceasar Chisholm MD RAD [...] and were consensually agreed upon. Care Teams Cuffing Machine Operator Relationship Specialty Start Date End Date Monika Loco CRNP [address] [place] [address] [place] [address] PCP - General Nurse Practitioner 12/08/18 documented as of this encounter
--- OUTSIDE RECORDS SUMMARY | 2024-04-24 13:59 | External Medical Summary ---
Author Name Unknown Address Unknown Organization K01:[facility]ORY [facility] [place] [address] [facility] [address] Laboratory Report Ordering Provider Test Date Status BIRDIE ANDREWS 03/30/2024 10:41:00 Final Observation Date Value Abnormality Reference (Units ) Status HbA1C 03/30/2024 10:41:00 7.2 Above high normal 4. 0-5.6 (%) Final The use of HbA1c to monitor glycemic status is based on normal hemoglobin and HbA composition. This test should not be used in patients with abnormal hemoglobin that affects the half life of the red blood cell or the in vivo glycation rates. Glucose, estimated average 03/30/2024 10:41:00 160 Above high normal <126 (mg/dL) Adair al Performing Location [facility] [place] [address] [facility] [address]
--- OUTSIDE RECORDS SUMMARY | 2024-04-24 13:59 | External Medical Summary | Summary of Care ---
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 0 [...] 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 Not on file Not [...] Care Team (Late st Contact Info) Description 11/03/2024 9:30 AM EDT Office Visit Gynecology/Oncology, [place] [address] [place] [address] Chiara Garcia PA-C [address] [place] [address] 01/06/2025 8:00 AM EDT Office Visit Cardiology, [facility] [address] [place] [address] Ralph Bauer MD [address] [place] [address] Scheduled Procedures Name Priority Associated Diagnoses Date/Ti me CATHETER PLACEMENT INTERNAL CAROTID ARTERY Pain 03/30/2024 3:45 AM EST CATHETER PLACEMENT VERTEBRAL ARTERY, Pain 03/30/2024 3:45 AM EST Health Maintenance Due Date Last Done Comments Depression Monitoring 1960 Albumin/Creatinine Ratio 01/22/1966 Diabetic Foot Exam 01/22/1966 HbA1c 01/29/2023 07/30/2022, 05/2021, 02/15/2021, Additional history exists GFR 10/02/2023 10/01/2022, 09/2022, 08/11/2022, Additional history exists COVID-19 Vaccine ( season) 2023 02/26/2022, 07/26/2021, 01/18/2021, Additional history exists Diabetic Eye Exam 01/20/2025 01/21/2024, , 01/28/2023, Additional history exists DTap/Tdap Vaccines (2 - [...] this encounter Medical Devices Implanted Type Area Pin Drafter Operator Device Identifier Shelf Expiration Date Model / Serial / Lot Mesh C-Qur 4 X 6 Inch 00253 - [id number] Implanted:Qty: 1 on 12/17/2010 at [place] [facility] [place] N/A: Abdomen Whe[place]ox [id number] / / [id number] documented as of this encounter Procedures [...] interpreted or resulted by a [facility] or [facility] contracted radiologist. Ceasar Chisholm MD RAD CT Final R esult documented in this encounter Advance Directives * Full Code (Latest Code Status on File) Date Activated Date Inactivated Comments 03/30/2024 9:45 AM This order re flects the patients wishes [...] and were consensually agreed upon. Care Teams Turkey Boner Relationship Specialty Start Date End Date Monika Loco CRNP [address] [place] [address] [place] [address] PCP - General Nurse Practitioner 12/08/18 documented as of this encounter
--- OUTSIDE RECORDS SUMMARY | 2024-04-24 13:59 | External Medical Summary ---
Author Name Unknown Address Unknown Organization K01:[facility] [address] [place] [address] Laboratory Report Ordering Provider Test Date Status JAYNE DIAMOND 03/30/2024 10:41:00 Final Warfarin Therapy
INR: 2 .0-3.0 conventional anticoagulation
INR: 2.5- 3.5 high intensity anticoagulation Observation Date Value Abnormality Reference (Units ) Status PT 03/30/2024 10:41:00 13.3 11.6-15.2 (seconds) Final INR 03/30/2024 10:41:00 1.0 0.8-1.2 Final Performing Location [facility] [place] [address] [place] [address]
--- OUTSIDE RECORDS SUMMARY | 2024-04-24 13:59 | External Medical Summary ---
Author Name Unknown Address Unknown Organization K01:LAB[facility]ORY [facility] [place] - [address] [place] [address] Laboratory Report Ordering Provider Test Date Status BIRDIE ANDREWS 03/30/2024 10:07:00 Final Observation Date Value Abnormality Reference (Units ) Status Magnesium 03/30/2024 10:07:00 2.0 1.5-2.6 (m g/dL) Final Performing Location LABORATORY [facility] - [address] [place] [address]
--- OUTSIDE RECORDS SUMMARY | 2024-04-24 13:59 | External Medical Summary ---
Author Name Unknown Address Unknown Organization : Laboratory Report Ordering Provider Test Date Status LAURIE FOFANA 03/30/2024 11:59:12 Final Observation Date Value Abnormality Reference (Units ) Status Glucose Point of Care 03/30/2024 11:59:12 224 Above high normal 70-120 (mg/dL) Final Performing Location
--- OUTSIDE RECORDS SUMMARY | 2024-04-24 13:59 | External Medical Summary ---
Author Name Unknown Address Unknown Organization K01:LABORATORY [facility] - [address] [place] [address] Laboratory Report Ordering Provider Test Date Status BIRDIE ANDREWS 03/30/2024 10:07:00 Final Observation Date Value Abnormality Reference (Units ) Status Phosphate 03/30/2024 10:07:00 2.8 2.5-4.8 (m g/dL) Final Performing Location LABORATORY [facility] - [address] [place] [address]
--- OUTSIDE RECORDS SUMMARY | 2024-04-24 13:59 | External Medical Summary ---
Author Name Unknown Address Unknown Organization K01[place] [place] [facility] [address] [facility] [address] Laboratory Report Ordering Provider Test Date Status BIRDIE ANDREWS 03/30/2024 10:07:00 Final Observation Date Value Abnormality Reference (Units ) Status WBC, Total 03/30/2024 10:07:00 10.26 4.00-10.80 (K/uL) Final RBC 03/30/2024 10:07:00 4.15 3.85-5.15 (M/uL) Final Hemoglobin 03/30/2024 10:07:00 13.1 12.0-15.3 (g/dL) Final HCT 03/30/2024 10:07:00 39.5 36.0-45.2 (%) Final MCV 03/30/2024 10:07:00 95.2 81.5-97.5 (fL) Final MCH 03/30/2024 10:07:00 31.6 27.0-34.0 (pg) Final MCHC 03/30/2024 10:07:00 33.2 32.0-36.0 (g/dL) Final RDW 03/30/2024 10:07:00 12.6 11.5-15.5 (%) Final Platelets 03/30/2024 10:07:00 267 140-400 (K/uL) Final MPV 03/30/2024 10:07:00 11.3 6.6-11.1 (fL) Final Nucleated erythrocytes/100 leukocytes [Ratio] in Blood by Automated count 03/30/2024 10:07:00 0 <=0 (/100 WBCs) Final Performing Location [facility] [place] [address] [place] [address]
--- OUTSIDE RECORDS SUMMARY | 2024-04-24 13:59 | External Medical Summary | Summary of Care ---
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 0 07/02/2005 [...] mRNA, LNP-s, No Pre serve, 2-Dose Series ([employer]) 01/18/2021,06/16/2020,05/26/2020 COVID-19, LNP-s, No Preserve , Villa-sucrose, [...] 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 Not [...] Assessment Author No 07/31/2022 5:35 PM EDT Mirta Matson RN * Because of a physical, [...] 11/03/2024 9:30 AM EDT Office Visit Gynecology/Oncology, [facility] [address] [place] [address] Chiara Garcia PA-C [address] [place] [address] 01/06/2025 8:00 AM EDT Office Visit Cardiology, [facility] [address] [place] [address] Ralph Bauer MD [address] [place] [address] Scheduled Procedures Name Priority Associated Diagnoses Date/Ti me CATHETER PLACEMENT INTERNAL CAROTID ARTERY Pain 03/30/2024 3:45 AM EST CATHETER PLACEMENT VERTEBRAL ARTERY, Pain 03/30/2024 3:45 AM EST Health Maintenance Due Date Last Done Comments Depression Monitoring 1960 Albumin/Creatinine Ratio 01/22/1966 Diabetic Foot Exam 01/22/1966 HbA1c 01/29/2023 07/30/2022, 1105/2021, 02/15/2021, Additional history exists GFR 10/02/2023 10/01/2022, 050 09/2022, 08/11/2022, Additional history exists COVID-19 Vaccine [...] this encounter Medical Devices Implanted Type Area Sales Representative Gas Service Device Identifier Shelf Expiration Date Model / Serial / Lot Mesh C-Qur 4 X 6 Inch [id number] - [id number] Implanted:Qty: 1 on 12/17/2010 at [place] [facility] [place]A: Abdomen [employer] [id number] / / [id number] documented as of this encounter Procedures [...] study not interpreted or resulted by a [facility] or [facility] contracted radiologist. us Ceasar Chisholm MD RAD CT Final R esult documented in this encounter Advance Directives * Full Code (Latest Code Status on File) Date Activated Date Inactivated Comments 07/30/2022 5:31 AM 08/03/2022 5:43 PM This order r eflects the patients wishes and were consensually agreed upon. Question Answer Comments Discussion of Advance Directives occurred with: Patient * Full Code Date Activated Date Inactivated Comments 12/17/2010 1:35 PM 12/21/2010 4:37 PM This order re flects the patients wishes and were consensually agreed upon. Care Teams Cytology Supervisor Relationship Specialty Start Date End Date Monika Loco CRNP [address] [place] [address] [phone] PCP - General Nurse Practitioner 12/08/18 documented as of this encounter
--- OUTSIDE RECORDS SUMMARY | 2024-04-24 13:59 | External Medical Summary ---
Author Name Unknown Address Unknown Organization [id number]:[facility] [place] [address] [facility] [address] Laboratory Report Ordering Provider Test Date Status JAYNE DIAMOND 03/30/2024 10:41:00 Final Anticoagulation may affect t esting. Refer to [facility] Test Catalog for a list of effects. Observation Date Value Abnormality Reference (Units ) Status aPTT panel - Platelet poor plasma 03/30/2024 10:41:00 25 21-38 (seconds) Final Performing Location [facility] [place] [address] [place] [id number]
[2024-04-24] MEDS: MoRPHine SULFATE 4 MG/ML 1 ML CARP\\VIAL IV STA ×3 (14:58→23:38)
[2024-04-24] MEDS: SODIUM CHLORIDE 0.9% 1,000 ML IV ONE (14:58)
[2024-04-24] MEDS: ONDANSETRON INJ 2 MG/ML 2 ML VIAL IV STA (14:58)
[2024-04-24 15:30] LABS: Basophils # (auto) 0.04 K/uL (0.00-0.20); Basophils % (auto) 0.5 %; Eosinophils # (auto) 0.05 K/uL (0.00-0.50); Eosinophils % (auto) 0.7 %; Hematocrit (blood only) 40.6 % (37.0-47.0); Hemoglobin 13.6 g/dl (12.0-16.0); Immature Granulocytes # (auto) 0.02 K/uL (0.01-0.20); Immature Granulocytes % (auto) 0.3 %; Lymphocytes # (auto) 1.67 K/uL (1.20-3.40); Lymphocytes % (auto) 22.4 %; Mean Corpuscular Hemoglobin 31.4 pg (25.0-34.0); Mean Corpuscular Hgb Conc 33.5 g/dL (32.0-36.0); Mean Corpuscular Volume 93.8 fL (80.0-100.0); Mean Platelet Volume 11.1 fL (9.4-12.4); Monocytes # (auto) 0.51 K/uL (0.11-0.59); Monocytes % (auto) 6.9 %; Neutrophils # (auto) 5.15 K/uL (1.40-6.50); Neutrophils % (auto) 69.2 %; Platelet Count 320 K/uL (130-400); RDW Standard Deviation 47.9 fL (36.4-46.3); Red Blood Count 4.33 M/uL (4.20-5.40); White Blood Count 7.44 K/ul (4.8-10.8)
[2024-04-24 15:41] LABS: Albumin Globulin Ratio 1.2 (0.9-2); BUN Creatinine Ratio 32.3 (10-20); Bilirubin,Total 0.4 mg/dl (0.2-1.0); Calcium 8.4 mg/dl (8.6-10.3); Creatinine Clr Calc Pharmacy 100.3 ml/min; Globulin 2.6 gm/dl (2.5-4.0); Potassium 4.1 mmol/L (3.5-5.1); Total Protein 5.6 gm/dl (6.0-8.3)
[2024-04-24 15:52] LABS: Prothrombin Time 10.4 Seconds (9.0-12.0)
[2024-04-24 15:52] LABS: Appearance Urine Clear (Clear); Bacteria Urine Automated None Seen (None Seen); Bilirubin Urine Negative (Negative); Blood Urine Negative (Negative); Cast Urine Automated 0-2 /lpf (0-2); Color Urine Yellow; Epithelial Cell Urine Auto 0-2 /hpf (0-2); Glucose Urine UA Negative (Negative); Ketones Urine Negative (Negative); Leukocyte Esterase Urine 2+ (Negative); Nitrite Urine Negative (Negative); Protein Urine Negative (Negative); Specific Gravity Urine 1.013 (1.000-1.030); Urobilinogen Urine Negative (Negative); pH Urine 7.5 (4.5-7.5)
[2024-04-24] MEDS: OPTIRAY 320 100ml IV ONE (16:45)
--- NOTE | 2024-04-24 18:01 | CT Scan Report ---
EXAM: CT lumbar spine w con CLINICAL HISTORY: back pain/spasms. TECHNIQUE: CT scan with contrast lumbar spine done. 92 ml Optiray 320 was administered for post contrast images. Axial images were obtained with reformatted coronal and sagittal images and submitted for interpretation. One of the following dose reduction techniques were utilized for this exam: Automated exposure control, adjustment of the mA and/or kV according to patient size, and use of iterative reconstruction. COMPARISON: None. FINDINGS: Vertebrae: Marked silicotic deformity to the left side. Partial fusion of L3 and L4 vertebral bodies. Osteopenia. Advanced spondylodegnerative changes are evidenced by a marked reduction in the height of scanned discs and vertebral end plates osteophytes. No fractures, lytic or sclerotic lesions. Multilevel disc herniations with osteophytes abutting the thecal sac and partially encroaching upon neural recesses and foramina. Bilateral multilevel facet joint arthropathy. Soft Tissues: L2/L3 anterior yolanda vertebral soft tissue lesion measuring 39X18 likely anterior disc herniation. No abnormal masses, fluid collections, or signs of inflammation. Vascular Structures: Normal appearance and enhancement of the abdominal aorta and other major vessels. No evidence of aneurysm, dissection, or significant atherosclerosis. N.B rectal fecaloma is noted with increased mural thickening and surrounding mild fat stranding Mild right hydronephrosis and hydroureter. Mild bilateral degenerative sacro-illitis IMPRESSION: 1. No acute fracture. 2. Osteopenia. 3. Marked scoliotic deformity to the left side. 4. Advanced spondylodegnerative Multilevel disc herniations with osteophytes abutting the thecal sac and partially encroaching upon neural recesses and foramina, further assessment by MRI is recommended. 5. Mild bilateral degenerative sacro-illitis. 6. rectal fecaloma with increased mural thickening and surrounding mild fat stranding suggestive of an associated mild inflammatory process. 7. Mild right hydronephrosis and hydroureter. 8. L2/L3 anterior yolanda vertebral soft tissue lesion measuring 39 X 18 likely anterior disc herniation. Electronically signed by Abdi Mcdaniel 04-24-2024 5:57 PM
--- NOTE | 2024-04-24 18:06 | CT Scan Report ---
EXAM: CT abd pelvis IV con only CLINICAL HISTORY: Back pain/spasms. TECHNIQUE: CT of the abdomen and pelvis was performed with contrast 92 ml Optiray 320, with the following protocol: axial images with, and reconstructed coronal and sagittal images. One of the following dose reduction techniques was utilized for this exam: Automated exposure control, adjustment of the mA and/or kV according to patient size, and use of iterative reconstruction. COMPARISON: No prior studies available for comparison. FINDINGS: Lung bases: Mild bilateral pleural thickening. Subsegmetal atelectasis in the left lung base. Abdomen: Liver: Normal in size, shape, and density. No focal lesions, cysts, or masses were identified. Hepatic vasculature and biliary ducts are unremarkable. Gallbladder and Biliary System: The gallbladder is normal in size and shape. No wall thickening, pericholecystic fluid, or gallstones were identified. The common bile duct is normal in caliber without dilation. Pancreas: Pancreatic head, body, and tail are visualized and appear normal in size and density. No pancreatic masses or calcifications were noted. The pancreatic duct is not dilated. Spleen: Normal in size, shape, and density. No splenic lesions or masses were identified. Kidneys and Adrenal Glands: Both kidneys are normal in size, shape, and position. Cortical thickness is within normal limits. No renal calculi Mild right hydroureteronephrosis down to the mid pelvic ureter at the level of the distended rectum with no detected stones further postcontrast study with delayed images is advised for better evaluation The lateral limb of the left adrenal gland appears nodular. The right adrenal gland is normal. Pelvis: Urinary Bladder: Underfilled. Barry catheter is situ. Uterus: Not seen. Ovaries: Not well visualized but no gross abnormalities noted. Vagina: Normal in contour and wall thickness. Cervix: No evidence of mass or abnormal thickening. Peritoneal and Retroperitoneal Structures: No free fluid or abnormal fluid collections were identified within the abdomen or pelvis. No lymphadenopathy was noted. Bowel: Fecal loaded colon. Dilated rectum which is seen distended with fecaloma with associated mild mural thickening of a stool and mild perirectal fat stranding , suggesting Stercoral colitis, clinical correlation is advised The rest of the visualized bowel loops are normal in caliber and appearance. No evidence of bowel obstruction or wall thickening. Bones and Soft Tissues: Lower thoracic and lumbar levoscoliosis. Severe degenerative changes of the lumbar spine. Large anterior abdominal wall hernia herniating bowel loops with no signs of complications IMPRESSION: 1. Dilated rectum which is seen distended with fecaloma with associated mild mural thickening of a stool and mild perirectal fat stranding , suggesting Stercoral colitis, clinical correlation is advised. 2. Mild right hydroureteronephrosis down to the mid pelvic ureter at the level of the distended rectum with no detected stones further postcontrast study with delayed images is advised for better evaluation. 3. The lateral limb of the left adrenal gland appears nodular. 4. Lower thoracic and lumbar levoscoliosis. 5. Severe degenerative changes of the lumbar spine. Electronically signed by Abdi Mcdaniel 04-24-2024 6:05 PM
--- NOTE | 2024-04-24 18:14 | XRay Report ---
INDICATION: Pain TECHNIQUE: 2 views of the right femur were obtained. COMPARISON: None FINDINGS: No displaced acute osseous process is identified. Evaluation of the upper segment of the femur somewhat limited due to overlying soft tissues and underpenetration. IMPRESSION: No displaced acute osseous process is identified. Evaluation of the upper segment of the femur somewhat limited due to overlying soft tissues and underpenetration. Electronically signed by Jose F Argueta 04-24-2024 6:14 PM
--- NOTE | 2024-04-24 18:27 | Emergency Department Note ---
ED Visit Note I assumed care at the change of shift. MRI of the lumbar spine was pending. Patient was complaining of some additional back pain, IV morphine was ordered. Given the constipation seen on CT imaging, a milk and molasses enema was ordered. Lumbar spine MRI did not show mass, fluid collection/abscess or fracture. There was disc disease seen but nothing showing significant spinal stenosis or the need for acute surgical intervention. The patient has been here now for almost 10 hours. She continually is asking for pain medication. She is quite constipated to the point of having inflammation around the rectal tissues. This certainly could be contributing to her discomfort. She has findings on CT imaging of the lumbar spine and MRI imaging of the lumbar spine showing significant arthritis and disc disease. Given the circumstances, I do think a hospital stay is warranted. I did talk to case management, the on-call hospitalist was consulted. .
[2024-04-24] MEDS: GADOBUTROL 65ML VIAL IV ONE (21:35)
--- NOTE | 2024-04-24 23:18 | Magnetic Resonance Report ---
Exam(s): MRI L SPINE W/WO Contrast EXAM: MR Lumbar Spine Without and With Intravenous Contrast CLINICAL HISTORY: Reason for exam: Lower back pain, disc herniations on CT. TECHNIQUE: Magnetic resonance images of the lumbar spine without and with intravenous contrast in multiple planes. CONTRAST: Contrast must be dictated COMPARISON: Prior CT scan of the lumbar spine from April 24, 2024. FINDINGS: This study is limited secondary to motion artifact. Vertebrae: There are 5 lumbar type vertebral bodies with advanced levoscoliosis and shallow lumbar lordosis. There is normal vertebral body height and alignment. The bone marrow signal is heterogeneous with reactive endplate changes. No acute fracture. Spinal cord: The conus demonstrates a stretch morphology, terminating at L3-4. No abnormal enhancement. Soft tissues: Unremarkable. DISCS/SPINAL CANAL/NEURAL FORAMINA: L1-L2: There is ankylosis across these segments. There is mild facet joint arthropathy with mild synovitis. L2-L3: There is ankylosis across these segments. There is mild facet arthropathy with mild synovitis. L3-L4: There is ankylosis across these segments with residual annular disc bulge causing a mild subarticular recess stenosis. There is mild facet arthropathy with mild synovitis. L4-L5: Moderate disc degeneration with annular disc bulge causing a mild left subarticular recess stenosis with disc and osteophyte extending to the right neural foramen causing a moderate stenosis with mild impingement moderate facet arthropathy with advanced right and moderate left synovitis with bone marrow edema and inflammation of the surrounding soft tissues. L5-S1: Moderate disc degeneration with annular disc bulge causing a mild left subarticular recess stenosis with disc and osteophyte extending to the neural foramina causing a mild left stenosis without evidence of neural impingement. There is mild to advanced facet joint arthropathy with mild to moderate synovitis. IMPRESSION: 1. Moderate disc degeneration at L4-5 and L5-S1 with annular disc bulging causing a mild subarticular recess stenosis. There is ankylosis across the L1-2, L2-3 and L3-4 disc spaces. 2. There is no spinal canal stenosis. 3. There is moderate right L4-5, and a mild left L5-S1 neuroforaminal stenosis without evidence of neural impingement. 4. There is mild to advanced facet arthropathy with mild to advanced synovitis, most significant at L5-S1. 5. 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 6. No evidence of fracture, infection, tumor. Electronically signed by: Kelly Jay MD 04/24/24 23:17 PM
[2024-04-25] MEDS ORDERED: ONDANSETRON INJ 2 MG/ML 2 ML VIAL IV PRN (01:32)
[2024-04-25] MEDS ORDERED: DEXTROSE 50% 50 ML SYRINGE IV PRN (01:33)
[2024-04-25] MEDS ORDERED: GLUCOSE 10 TAB/TUBE PO PRN (01:33)
[2024-04-25] MEDS ORDERED: CARBOHYDRATES FOR HYPOGLYCEMIA PO PRN (01:33)
[2024-04-25] MEDS ORDERED: GLUCOSE 40% GEL 15 GM TUBE PO PRN (01:33)
[2024-04-25] MEDS ORDERED: GLUCAGON FOR INJ 1 MG VIAL SQ PRN (01:33)
[2024-04-25] MEDS: PANTOprazole 40 MG/10 ML SYR IV ONE (01:46)
[2024-04-25] MEDS: SODIUM CHLORIDE 0.9% 1,000 ML IV ONE (01:49)
[2024-04-25] MEDS ORDERED: VANCOMYCIN CONSULT ACTIVE PRN (01:50)
[2024-04-25] MEDS: 4.5GM X1 IV STA (01:54)
--- NOTE | 2024-04-25 02:09 | History & Physical Report ---
Date of Service April 25, 2024 Assessment & Plan (1) Stercoral colitis: (2) Left acute arterial ischemic stroke, MCA (middle cerebral artery): (3) History of pulmonary embolism: (4) Atrial fibrillation: Plan The patient is a 74-year-old female with a past medical history including breast cancer, uterine cancer, skin cancer, gout, vitamin D deficiency, type 2 diabetes mellitus, hypertension, hyperlipidemia, diabetic neuropathy, depression anxiety, atrial fibrillation. Patient had a significant acute ischemic left MCA territory infarct on 03/30/2024, for which she was seen at [facility] in [place]. She was discharged for 04/05/2024 to [facility]. She did have an embolectomy performed while at [place], and reportedly has not been able to communicate well since that time. Patient had evidently developed low back pain, and was sent to [facility] for assessment. She had multiple imaging studies performed, which will need to be verified by our daytime radiology. The most ongoing concern is that of stercoral colitis, for which patient was referred to the hospital service after a 12-hour stay in the emergency department. #Stercoral colitis- Most reliable finding that we can determine on CT scan as responsible for patient's low back pain Placed on vancomycin IV and Zosyn IV N.p.o. Pantoprazole 40 mg IV daily Give normal saline 1 L bolus now, then NSS plus KCl 20 mEq at 100 mL/h x 2 L Acetaminophen 1 g IV every 8 hours as needed for mild pain or fever Zofran 4 mg IV every 6 hours as needed Follow-up clinical examination Of note, multiple images performed assessing orthopedic function, of unclear relevance at this time Will ask daytime radiologist at [facility] to further interpret for clarity History of acute ischemic left MCA CVA on 03/30/2024, status post embolectomy- Patient with residual communication deficit and physical deficits Has been sent from [facility], which anticipate she will be to return there once GI issues have been treated Diabetes mellitus- Placed on Accu-Cheks with NovoLog SSI Holding insulin glargine at this time due to decreased oral intake History of PE/atrial fibrillation- Records review indicates patient has been on apixaban and flecainide at some time, this will need to be clarified during the daytime records. History of Present Illness Chief Complaint: The patient presented to emergency department from [facility] due to concerns regarding low back pain, for which she had been started recently on baclofen for 3 days. Patient underwent a 12-hour workup in the emergency department, with multiple se ts of radiation evaluations, due to concerns regarding possible lumbar spine disease. The patient was referred to [facility] hospitalist service after this length of time, with the potential diagnosis of stercoral colitis, and treatment was begun at this interval Primary Care Provider: ADINA Wilkes The patient is a 74-year-old female with a past medical history including breast cancer, uterine cancer, skin cancer, gout, vitamin D deficiency, type 2 diabetes mellitus, hypertension, hyperlipidemia, diabetic neuropathy, depression anxiety, atrial fibrillation. Patient had a significant acute ischemic left MCA territory infarct on 03/30/2024, for which she was seen at [facility] in [place]. She was discharged for 04/05/2024 to [facility]. She did have an embolectomy performed while at [place], and reportedly has not been able to communicate well since that time. Patient had evidently developed low back pain, and was sent to [facility] for assessment. She had multiple imaging studies performed, which will need to be verified by our daytime radiology. The most ongoing concern is that of stercoral colitis, for which patient was referred to the hospital service after a 12-hour stay in the emergency department. Allergies Allergy/AdvReac Type Severity Reaction Status Date / Time levofloxacin Allergy Severe Rash Verified 02/27/24 14:52 Home Medications Medication Instructions Recorded Confirmed Type flecainide 100 mg tablet 100 mg PO Q12H 12/25/18 04/24/24 History lorazepam 0.5 mg tablet 0.5 mg PO DAILY PRN anxiety #20 02/23/24 04/24/24 Rx tabs Fleet Enema 133 ml ONCE constipation 04/24/24 04/24/24 History Insta-Glucose 15 g PO ONCE PRN Hypoglycemia 04/24/24 04/24/24 History acetaminophen 325 mg tablet 650 mg PO Q6H PRN Pain 04/24/24 04/24/24 History (Tylenol) apixaban 5 mg tablet 5 mg PO BID 04/24/24 04/24/24 History aspirin 81 mg capsule 81 mg PO DAILY 04/24/24 04/24/24 History baclofen 10 mg tablet 10 mg PO TID 04/24/24 04/24/24 History bisacodyl 10 mg rectal suppository 10 mg CA DAILY PRN Constipation 04/24/24 04/24/24 History cefdinir 300 mg capsule 300 mg PO Q12H 04/24/24 04/24/24 History docusate sodium 100 mg capsule 100 mg PO BID 04/24/24 04/24/24 History escitalopram oxalate 10 mg tablet 10 mg PO DAILY 04/24/24 04/24/24 History (Lexapro) ezetimibe 10 mg tablet 10 mg PO DAILY 04/24/24 04/24/24 History glucagon HCl 1 mg solution for 1 mg subcut ONCE PRN Hypoglycemia 04/24/24 04/24/24 History injection guaifenesin 600 mg tablet, 600 mg PO Q12H 04/24/24 04/24/24 History extended release 12 hr insulin glargine 100 unit/mL (3 32 unit subcut PM 04/24/24 04/24/24 History mL) subcutaneous pen, sensor magnesium hydroxide 400 mg/5 mL 30 ml PO DAILY PRN Constipation 04/24/24 04/24/24 History oral suspension metoprolol tartrate 25 mg tablet 25 mg PO BID 04/24/24 04/24/24 History ondansetron HCl 4 mg tablet 4 mg PO Q4H 04/24/24 04/24/24 History pantoprazole 40 mg tablet,delayed 40 mg PO DAILY 04/24/24 04/24/24 History release polyethylene glycol 3350 17 17 g PO DAILY 04/24/24 04/24/24 History gram/dose oral powder sennosides 8.6 mg-docusate sodium 1 tab-cap PO DAILY PRN Constipation 04/24/24 04/24/24 History 50 mg tablet (Senokot-S) simethicone 80 mg tablet 160 mg PO Q8H PRN flatulence 04/24/24 04/24/24 History zinc oxide 20 % topical ointment 1 applic topical BID 04/24/24 04/24/24 History Past Med/Surg History Problem List (Updated 04/25/24 @ 06:35 by Terell Aldana MD) Left acute arterial ischemic stroke, MCA (middle cerebral artery) History of pulmonary embolism 5 years ago following injury 15 years ago while on Tamoxifen Atrial fibrillation follows with Dr. Juancarlos Oliveira colitis Back pain (Acute) Abnormal findings on diagnostic imaging of limbs Edema of left lower extremity History of breast cancer dx'd 1993 BL - lumpectomy + radiation recurrence 1999 Rt breast - Rt mastectomy recurrence 2004 Lt breast - Lt mastectomy History of uterine cancer 2011 - treated surgically History of skin cancer removed Abnormal x-ray of knee Left knee pain Gout Hair loss History of colon polyps Encounter for pre-operative examination Statin intolerance Vitamin D deficiency (Chronic) Venous insufficiency (Chronic) Type 2 diabetes mellitus without complication (Chronic) Peripheral edema (Chronic) Insomnia (Chronic) Hypertension (Chronic) Hyperlipidemia (Chronic) Diabetic neuropathy (Chronic) Depression with anxiety (Chronic) Atrial fibrillation (Chronic) Medical History Osteomyelitis of third toe of left foot Fear of needles On anticoagulant therapy History of cardioversion Limb alert care status History of pulmonary embolism Atrial fibrillation Tubular adenoma of colon Diverticulosis of intestine Surgical History History of toe surgery History of lumpectomy of both breasts History of surgery History of tonsillectomy History of hernia surgery History of breast biopsy History of colonoscopy History of total abdominal hysterectomy and bilateral salpingo-oophorectomy History of modified radical mastectomy of both breasts History of hysteroscopy History of dilation and curettage Status post debridement History of breast reconstruction Family History Father Prostate cancer Family/Other Myocardial infarction Denies family history of Ovarian cancer Breast cancer Colorectal cancer Social History Smoking Status: Never smoker Second Hand Exposure: No; Do You Dip or Chew Tobacco: No; Hx Alcohol Use: No Hx Substance Use: No Preferred Language: Polish Communication Ability: Impaired Communication Ability Comment: Yes or no, shaking head Visual Impairment: No Limitations Hearing Ability: Normal Dioramist Required: No Beliefs That Will Affect Care: None marital status: Current Living Situation: Spouse current occupational status: retired current occupation: [employer] How many Children do You have: 2 Feels Safe at Home: Yes Childhood Exposure to Second-Hand Smoke: No Diet: diabetic caffeine: Yes Dental Care, Regularly: Yes Physical Activity Frequency: Daily Seatbelt Use: always Sunscreen Use: No Assistive Devices: None Review of Systems Review of Systems: Review of systems and HPI are significant limited to the patient's inability to communicate, and information is gathered from the emergency department, and record of [facility] Physical Exam Physical Exam: The patient is awake, minimally responsive, but tries to communicate. normocephalic and atraumatic, lying in bed and in no acute distress. HEENT--PERRL, EOMI, mucous membranes and oropharynx mildly dry. Neck--supple. No JVD. No bruits. Thyroid normal, trachea midline, no adenopathy. Heart--normal S1 and S2. No murmurs, rubs or gallops. Lungs--clear bilaterally, no respiratory distress, no accessory muscle use. Abdomen--normal bowel sounds and soft. Nontender. Nondistended, no hernias or masses, no organomegaly. Extremities--no cyanosis or clubbing. No edema. There are good distal pulses b/l. Dermatologic--normal skin turgor, normal color, no abnormal lymph nodes, no rash. Neurologic--cranial nerves II through XII grossly intact. Rheumatologic--limited exam Psychiatric--minimally responsive to indicate Results & Data Results & Data Vital Signs (Past 12 Hours) Vital Signs Pulse Pulse Resp BP Pulse Ox O2 Del Method 04/25/24 01:00 83 18 105/84 92 04/24/24 23:45 92 H 04/24/24 21:56 97 H 22 115/84 95 Room Air 04/24/24 19:50 77 04/24/24 19:19 80 15 123/54 L 04/24/24 17:00 75 18 132/62 96 04/24/24 15:51 73 04/24/24 15:00 80 24 104/83 99 Room Air Laboratory Results Laboratory Results WBC 5.83 K/ul (4.8-10.8) 04/25/24 02:47 RBC 3.56 M/uL (4.20-5.40) L 04/25/24 02:47 Hgb 11.2 g/dl (12.0-16.0) L 04/25/24 02:47 Hct 34.4 % (37.0-47.0) L 04/25/24 02:47 MCV 96.6 fL (80.0-100.0) 04/25/24 02:47 MCH 31.5 pg (25.0-34.0) 04/25/24 02:47 MCHC 32.6 g/dL (32.0-36.0) 04/25/24 02:47 RDW Std Deviation 50.2 fL (36.4-46.3) H 04/25/24 02:47 RDW Coeff of Linda 14.2 % (11.5-14.5) 04/25/24 02:47 Plt Count 243 K/uL (130-400) 04/25/24 02:47 MPV 10.7 fL (9.4-12.4) 04/25/24 02:47 Immature Gran % (Auto) 0.3 % 04/25/24 02:47 Neut % (Auto) 65.1 % 04/25/24 02:47 Lymph % (Auto) 25.7 % 04/25/24 02:47 Miner % (Auto) 7.7 % 04/25/24 02:47 Eos % (Auto) 0.5 % 04/25/24 02:47 Baso % (Auto) 0.7 % 04/25/24 02:47 Neut # (Auto) 3.79 K/uL (1.40-6.50) 04/25/24 02:47 Lymph # (Auto) 1.50 K/uL (1.20-3.40) 04/25/24 02:47 Miner # (Auto) 0.45 K/uL (0.11-0.59) 04/25/24 02:47 Eos # (Auto) 0.03 K/uL (0.00-0.50) 04/25/24 02:47 Baso # (Auto) 0.04 K/uL (0.00-0.20) 04/25/24 02:47 Immature Gran # (Auto) 0.02 K/uL (0.01-0.20) 04/25/24 02:47 PT 10.4 Seconds (9.0-12.0) 04/24/24 14:50 INR 1.0 (0.9-1.1) 04/24/24 14:50 Sodium 143 mmol/L (136-145) 04/25/24 02:47 Potassium 3.6 mmol/L (3.5-5.1) 04/25/24 02:47 Chloride 117 mmol/L (98-107) H 04/25/24 02:47 Carbon Dioxide 23 mmol/L (21-32) 04/25/24 02:47 Anion Gap 3 (3-11) 04/25/24 02:47 BUN 17 mg/dl (6-23) 04/25/24 02:47 Creatinine 0.49 mg/dl (0.6-1.2) L 04/25/24 02:47 Est Cr Clr Drug Dosing 126.9 ml/min 04/25/24 02:47 eGFR 97.62 04/25/24 02:47 BUN/Creatinine Ratio 34.7 (10-20) H 04/25/24 02:47 Glucose 140 mg/dl (70-99(Fasting)) H 04/25/24 02:47 POC Glucose 158 mg/dl (70-99) H 04/25/24 01:42 Calcium 6.1 mg/dl (8.6-10.3) L D 04/25/24 02:47 Magnesium 1.4 mg/dl (1.7-2.4) L 04/25/24 02:47 Total Bilirubin 0.4 mg/dl (0.2-1.0) 04/25/24 02:47 AST 12 U/L (13-39) L 04/25/24 02:47 ALT 14 U/L (7-52) 04/25/24 02:47 Alkaline Phosphatase 60 U/L (34-104) 04/25/24 02:47 Total Protein 3.8 gm/dl (6.0-8.3) L D 04/25/24 02:47 Albumin 2.1 gm/dl (3.4-5.0) L 04/25/24 02:47 Globulin 1.7 gm/dl (2.5-4.0) L 04/25/24 02:47 Albumin/Globulin Ratio 1.2 (0.9-2) 04/25/24 02:47 Lipase 23 U/L (11-82) 04/24/24 14:50 Urine Color Yellow 04/24/24 15:31 Urine Appearance Clear (Clear) 04/24/24 15:31 Urine pH 7.5 (4.5-7.5) 04/24/24 15:31 Ur Specific [place] 1.013 (1.000-1.030) 04/24/24 15:31 Urine Protein Negative (Negative) 04/24/24 15:31 Urine Glucose (UA) Negative (Negative) 04/24/24 15:31 Urine Ketones Negative (Negative) 04/24/24 15:31 Urine Blood Negative (Negative) 04/24/24 15:31 Urine Nitrite Negative (Negative) 04/24/24 15: Urine Bilirubin Negative (Negative) 04/24/24 15:31 Urine Urobilinogen Negative (Negative) 04/24/24 15:31 Ur Leukocyte Esterase 2+ (Negative) H 04/24/24 15:31 Urine WBC (Auto) 11-20 /hpf (0-5) H 04/24/24 15:31 Urine RBC (Auto) 3-5 /hpf (0-2) H 04/24/24 15:31 U Hyaline Cast (Auto) 0-2 /lpf (0-2) 04/24/24 15: U Epithel Cells (Auto) 0-2 /hpf (0-2) 04/24/24 15:31 Urine Bacteria (Auto) None Seen (None Seen) 04/24/24 15:31 Impressions Abdomen/Pelvis CT 04/24/24 13:53 EXAM: CT abd pelvis IV con only CLINICAL HISTORY: Back pain/spasms. TECHNIQUE: CT of the abdomen and pelvis was performed with contrast 92 ml Optiray 320, with the following protocol: axial images with, and reconstructed coronal and sagittal images. One of the following dose reduction techniques was utilized for this exam: Automated exposure control, adjustment of the mA and/or kV according to patient size, and use of iterative reconstruction. COMPARISON: No prior studies available for comparison. FINDINGS: Lung bases: Mild bilateral pleural thickening. Subsegmetal atelectasis in the left lung base. Abdomen: Liver: Normal in size, shape, and density. No focal lesions, cysts, or masses were identified. Hepatic vasculature and biliary ducts are unremarkable. Gallbladder and Biliary System: The gallbladder is normal in size and shape. No wall thickening, pericholecystic fluid, or gallstones were identified. The common bile duct is normal in caliber without dilation. Pancreas: Pancreatic head, body, and tail are visualized and appear normal in size and density. No pancreatic masses or calcifications were noted. The pancreatic duct is not dilated. Spleen: Normal in size, shape, and density. No splenic lesions or masses were identified. Kidneys and Adrenal Glands: Both kidneys are normal in size, shape, and position. Cortical thickness is within normal limits. No renal calculi Mild right hydroureteronephrosis down to the mid pelvic ureter at the level of the distended rectum with no detected stones further postcontrast study with delayed images is advised for better evaluation The lateral limb of the left adrenal gland appears nodular. The right adrenal gland is normal. Pelvis: Urinary Bladder: Underfilled. Barry catheter is situ. Uterus: Not seen. Ovaries: Not well visualized but no gross abnormalities noted. Vagina: Normal in contour and wall thickness. Cervix: No evidence of mass or abnormal thickening. Peritoneal and Retroperitoneal Structures: No free fluid or abnormal fluid collections were identified within the abdomen or pelvis. No lymphadenopathy was noted. Bowel: Fecal loaded colon. Dilated rectum which is seen distended with fecaloma with associated mild mural thickening of a stool and mild perirectal fat stranding , suggesting Stercoral colitis, clinical correlation is advised The rest of the visualized bowel loops are normal in caliber and appearance. No evidence of bowel obstruction or wall thickening. Bones and Soft Tissues: Lower thoracic and lumbar levoscoliosis. Severe degenerative changes of the lumbar spine. Large anterior abdominal wall hernia herniating bowel loops with no signs of complications IMPRESSION: 1. Dilated rectum which is seen distended with fecaloma with associated mild mural thickening of a stool and mild perirectal fat stranding , suggesting Stercoral colitis, clinical correlation is advised. 2. Mild right hydroureteronephrosis down to the mid pelvic ureter at the level of the distended rectum with no detected stones further postcontrast study with delayed images is advised for better evaluation. 3. The lateral limb of the left adrenal gland appears nodular. 4. Lower thoracic and lumbar levoscoliosis. 5. Severe degenerative changes of the lumbar spine. Electronically signed by Abdi Mcdaniel 04-24-2024 6:[address] 04/24/24 13:53 EXAM: CT lumbar spine w con CLINICAL HISTORY: back pain/spasms. TECHNIQUE: CT scan with contrast lumbar spine done. 92 ml Optiray 320 was administered for post contrast images. Axial images were obtained with reformatted coronal and sagittal images and submitted for interpretation. One of the following dose reduction techniques were utilized for this exam: Automated exposure control, adjustment of the mA and/or kV according to patient size, and use of iterative reconstruction. COMPARISON: None. FINDINGS: Vertebrae: Marked silicotic deformity to the left side. Partial fusion of L3 and L4 vertebral bodies. Osteopenia. Advanced spondylodegnerative changes are evidenced by a marked reduction in the height of scanned discs and vertebral end plates osteophytes. No fractures, lytic or sclerotic lesions. Multilevel disc herniations with osteophytes abutting the thecal sac and partially encroaching upon neural recesses and foramina. Bilateral multilevel facet joint arthropathy. Soft Tissues: L2/L3 anterior yolanda vertebral soft tissue lesion measuring [id number] likely anterior disc herniation. No abnormal masses, fluid collections, or signs of inflammation. Vascular Structures: Normal appearance and enhancement of the abdominal aorta and other major vessels. No evidence of aneurysm, dissection, or significant atherosclerosis. N.B rectal fecaloma is noted with increased mural thickening and surrounding mild fat stranding Mild right hydronephrosis and hydroureter. Mild bilateral degenerative sacro-illitis IMPRESSION: 1. No acute fracture. 2. Osteopenia. 3. Marked scoliotic deformity to the left side. 4. Advanced spondylodegnerative Multilevel disc herniations with osteophytes abutting the thecal sac and partially encroaching upon neural recesses and foramina, further assessment by MRI is recommended. 5. Mild bilateral degenerative sacro-illitis. 6. rectal fecaloma with increased mural thickening and surrounding mild fat stranding suggestive of an associated mild inflammatory process. 7. Mild right hydronephrosis and hydroureter. 8. L2/L3 anterior yolanda vertebral soft tissue lesion measuring 39 X 18 likely anterior disc herniation. Electronically signed by Abdi Mcdaniel 04-24-2024 5:57 PM Femur X-Ray 04/24/24 17:11 INDICATION: Pain TECHNIQUE: 2 views of the right femur were obtained. COMPARISON: None FINDINGS: No displaced acute osseous process is identified. Evaluation of the upper segment of the femur somewhat limited due to overlying soft tissues and underpenetration. IMPRESSION: No displaced acute osseous process is identified. Evaluation of the upper segment of the femur somewhat limited due to overlying soft tissues and underpenetration. Electronically signed by Jose F Argueta 04-24-2024 6:14 PM Lumbar Spine MRI 04/24/24 18:26 Exam(s): MRI L SPINE W/WO Contrast EXAM: MR Lumbar Spine Without and With Intravenous Contrast CLINICAL HISTORY: Reason for exam: Lower back pain, disc herniations on CT. TECHNIQUE: Magnetic resonance images of the lumbar spine without and with intravenous contrast in multiple planes. CONTRAST: Contrast must be dictated COMPARISON: Prior CT scan of the lumbar spine from April 24, 2024. FINDINGS: This study is limited secondary to motion artifact. Vertebrae: There are 5 lumbar type vertebral bodies with advanced levoscoliosis and shallow lumbar lordosis. There is normal vertebral body height and alignment. The bone marrow signal is heterogeneous with reactive endplate changes. No acute fracture. Spinal cord: The conus demonstrates a stretch morphology, terminating at L3-4. No abnormal enhancement. Soft tissues: Unremarkable. DISCS/SPINAL CANAL/NEURAL FORAMINA: L1-L2: There is ankylosis across these segments. There is mild facet joint arthropathy with mild synovitis. L2-L3: There is ankylosis across these segments. There is mild facet arthropathy with mild synovitis. L3-L4: There is ankylosis across these segments with residual annular disc bulge causing a mild subarticular recess stenosis. There is mild facet arthropathy with mild synovitis. L4-L5: Moderate disc degeneration with annular disc bulge causing a mild left subarticular recess stenosis with disc and osteophyte extending to the right neural foramen causing a moderate stenosis with mild impingement moderate facet arthropathy with advanced right and moderate left synovitis with bone marrow edema and inflammation of the surrounding soft tissues. L5-S1: Moderate disc degeneration with annular disc bulge causing a mild left subarticular recess stenosis with disc and osteophyte extending to the neural foramina causing a mild left stenosis without evidence of neural impingement. There is mild to advanced facet joint arthropathy with mild to moderate synovitis. IMPRESSION: 1. Moderate disc degeneration at L4-5 and L5-S1 with annular disc bulging causing a mild subarticular recess stenosis. There is ankylosis across the L1-2, L2-3 and L3-4 disc spaces. 2. There is no spinal canal stenosis. 3. There is moderate right L4-5, and a mild left L5-S1 neuroforaminal stenosis without evidence of neural impingement. 4. There is mild to advanced facet arthropathy with mild to advanced synovitis, most significant at L5-S1. 5. 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 6. No evidence of fracture, infection, tumor. Electronically signed by: Kelly Jay MD 04/24/24 23:17 PM Code Status & VTE Plan Code Status Full code VTE Prophylaxis Plan VTE Prophylaxis will be ordered: Yes PG Care Time/CCT Total # of Minutes Spent Total Time Spent with Patient: Total time spent is greater than 50% in coordination of care (as documented) at patient's floor/unit and/or counseling patient: Coding Level of Care Code 87354 INT INP/OBS CARE 3/75MIN Diagnoses Stercoral colitis K52.89 Left acute arterial ischemic stroke, MCA (middle cerebral artery) I63.512 History of pulmonary embolism Z86.711 Atrial fibrillation I48.91
[2024-04-25] MEDS: VANCOMYCIN HCL 2,250 MG in SODIUM CHLORIDE 0.9% 500 ML IV ONE (02:26)
[2024-04-25 03:04] LABS: Basophils # (auto) 0.04 K/uL (0.00-0.20); Basophils % (auto) 0.7 %; Eosinophils # (auto) 0.03 K/uL (0.00-0.50); Eosinophils % (auto) 0.5 %; Hematocrit (blood only) 34.4 % (37.0-47.0); Hemoglobin 11.2 g/dl (12.0-16.0); Immature Granulocytes # (auto) 0.02 K/uL (0.01-0.20); Immature Granulocytes % (auto) 0.3 %; Lymphocytes % (auto) 25.7 %; Mean Corpuscular Hemoglobin 31.5 pg (25.0-34.0); Mean Corpuscular Hgb Conc 32.6 g/dL (32.0-36.0); Mean Corpuscular Volume 96.6 fL (80.0-100.0); Mean Platelet Volume 10.7 fL (9.4-12.4); Monocytes # (auto) 0.45 K/uL (0.11-0.59); Monocytes % (auto) 7.7 %; Neutrophils # (auto) 3.79 K/uL (1.40-6.50); Neutrophils % (auto) 65.1 %; Platelet Count 243 K/uL (130-400); RDW Coefficient of Variation 14.2 % (11.5-14.5); RDW Standard Deviation 50.2 fL (36.4-46.3); Red Blood Count 3.56 M/uL (4.20-5.40); White Blood Count 5.83 K/ul (4.8-10.8)
[2024-04-25 03:23] LABS: Albumin Globulin Ratio 1.2 (0.9-2); Albumin Level 2.1 gm/dl (3.4-5.0); BUN Creatinine Ratio 34.7 (10-20); Bilirubin,Total 0.4 mg/dl (0.2-1.0); Calcium 6.1 mg/dl (8.6-10.3); Creatinine Clr Calc Pharmacy 126.9 ml/min; Globulin 1.7 gm/dl (2.5-4.0); Magnesium 1.4 mg/dl (1.7-2.4); Potassium 3.6 mmol/L (3.5-5.1); Total Protein 3.8 gm/dl (6.0-8.3)
[2024-04-25] MEDS: NSS + 20MEQ KCL 20 MEQ/1,000 ML BAG IV SCH (03:47)
[2024-04-25] MEDS: INSULIN ASPART PER UNIT CHARGE SC SCH (07:37)
--- NOTE | 2024-04-25 07:56 | Hospitalist Progress Note ---
Date of Service April 25, 2024 Assessment & Plan (1) Stercoral colitis: (2) Left acute arterial ischemic stroke, MCA (middle cerebral artery): (3) History of pulmonary embolism: (4) Atrial fibrillation: Plan The patient is a 74-year-old female with a past medical history including breast cancer, uterine cancer, skin cancer, gout, vitamin D deficiency, type 2 diabetes mellitus, hypertension, hyperlipidemia, diabetic neuropathy, depression anxiety, atrial fibrillation. Patient had a significant acute ischemic left MCA territory infarct on 03/30/2024, for which she was seen at [facility] in [place]. She was discharged for 04/05/2024 to [facility]. She did have an embolectomy performed while at [place], and reportedly has not been able to communicate well since that time. Patient had evidently developed low back pain, and was sent to [facility] for assessment. She had multiple imaging studies performed, which will need to be verified by our daytime radiology. The most ongoing concern is that of stercoral colitis, for which patient was referred to the hospital service after a 12-hour stay in the emergency department. #Stercoral colitis- Most reliable finding that we can determine on CT scan as responsible for patient's low back pain Placed on vancomycin IV and Zosyn IV Of note, multiple images performed assessing orthopedic function, of unclear relevance at this time rectal without stool ball, cathartic agents ordered #right sided hydronephrosis with recent treatment of Klebsiella uti at [facility], possible hydro from stool ball in rectum, renal us #back pain, possible L2-3 herniated disc, also spondylogenic multilevel valles es/osteophytes , MRI without significant impingement currently on pain control scheduled tylenol, will not use steroids until infection ruled out History of acute ischemic left MCA CVA on 03/30/2024, status post embolectomy- Patient with residual communication deficit and physical deficits typically on aspirin, and anticoagulated wtih apixiban Diabetes mellitus- Placed on Accu-Cheks with basal bolus insulin History of PE/atrial fibrillation- on apixaban, metoprolol and flecainide , Admission and Anticipated Discharge Date Admission Date: April 25, 2024 Subjective pt is aphasic, can answer yes or no did rectal no stool ball felt in vault, copious soft brown stool Physical Exam Physical Exam: did not seem in distress at this time rectal without opstipation, stool maybe higher up abd is soft normal bowel sounds non tender Results & Data Results & Data Vital Signs (Past 12 Hours) Vital Signs Pulse Pulse Resp BP Pulse Ox O2 Del Method 04/25/24 07:22 105 H 04/25/24 03:36 83 18 100/76 93 Room Air 04/25/24 01:00 83 18 105/84 92 04/24/24 23:45 92 H 04/24/24 21:56 97 H 22 115/84 95 Room Air PG Care Time/CCT Total # of Minutes Spent Total Time Spent with Patient: Total time spent is greater than 50% in coordination of care (as documented) at patient's floor/unit and/or counseling patient: Coding Level of Care Code 17208 SUB INP/OBS CARE 3/50MIN Diagnoses Stercoral colitis K52.89 Left acute arterial ischemic stroke, MCA (middle cerebral artery) I63.512 History of pulmonary embolism Z86.711 Atrial fibrillation I48.91
[2024-04-25] MEDS: ACETAMINOPHEN 1000 MG/100 ML IV IV PRN (09:17)
[2024-04-25 09:22] LABS: Basophils # (auto) 0.04 K/uL (0.00-0.20); Basophils % (auto) 0.7 %; Eosinophils # (auto) 0.03 K/uL (0.00-0.50); Eosinophils % (auto) 0.5 %; Hematocrit (blood only) 37.6 % (37.0-47.0); Hemoglobin 12.4 g/dl (12.0-16.0); Immature Granulocytes # (auto) 0.02 K/uL (0.01-0.20); Immature Granulocytes % (auto) 0.3 %; Lymphocytes # (auto) 1.48 K/uL (1.20-3.40); Lymphocytes % (auto) 24.2 %; Mean Corpuscular Hemoglobin 31.2 pg (25.0-34.0); Mean Corpuscular Volume 94.7 fL (80.0-100.0); Mean Platelet Volume 10.6 fL (9.4-12.4); Monocytes # (auto) 0.51 K/uL (0.11-0.59); Monocytes % (auto) 8.3 %; Neutrophils # (auto) 4.03 K/uL (1.40-6.50); Platelet Count 273 K/uL (130-400); RDW Coefficient of Variation 14.5 % (11.5-14.5); RDW Standard Deviation 49.8 fL (36.4-46.3); Red Blood Count 3.97 M/uL (4.20-5.40); White Blood Count 6.11 K/ul (4.8-10.8)
[2024-04-25] MEDS: PIPERACILLIN/TAZOBACTAM 4.5 GM/100 ML BAG IV SCH (09:26)
[2024-04-25] MEDS: PANTOprazole 40 MG/10 ML SYR IV SCH (09:31)
[2024-04-25 09:40] LABS: Albumin Globulin Ratio 1.2 (0.9-2); Albumin Level 2.7 gm/dl (3.4-5.0); Bilirubin,Total 0.5 mg/dl (0.2-1.0); Calcium 7.8 mg/dl (8.6-10.3); Creatinine Clr Calc Pharmacy 100.3 ml/min; Globulin 2.3 gm/dl (2.5-4.0); Potassium 4.6 mmol/L (3.5-5.1)
[2024-04-25] MEDS: FLECAINIDE ACETATE 100 MG TABLET PO SCH (10:08)
[2024-04-25] MEDS: APIXABAN 5 MG TABLET PO SCH (10:09)
[2024-04-25] MEDS: ASPIRIN 81 MG ECTAB PO SCH (10:09)
[2024-04-25] MEDS: METOPROLOL TARTRATE 25 MG TAB PO SCH (10:10)
[2024-04-25] MEDS: ESCITALOPRAM OXALATE 10 MG TAB PO SCH (10:10)
[2024-04-25] MEDS: PANTOprazole 40 MG TAB PO SCH (10:10)
[2024-04-25] MEDS: MoRPHine SULFATE 2 MG/ML CARP IV PRN (10:11)
[2024-04-25] MEDS: DOCUSATE SODIUM 100 MG CAP PO SCH (10:26)
[2024-04-25] MEDS: POLYETHYLENE (MIRALAX) 17 GM PACK PO SCH (10:27)
--- NOTE | 2024-04-25 10:54 | Pharmacy Report ---
Pharmacy PK ABX Note - Date of Service April 25, 2024 - Assessment and Plan Assessment 74 year old F receiving vancomycin and zosyn for treatment of stercoral colitis. Urine culture pending. Renal function stable. Day #1 of antimicrobial therapy. Plan Vancomycin * Loading dose: 2250 mg IV x 1 * Maintenance dose: 1000 mg IV every 12 hours * Regimen is predicted to achieve target AUC/MAGDIEL of 400-600 mg/L.hr * Will obtain a level if therapy continued beyond 48h Pharmacy will continue to follow and will adjust dose/frequency as necessary. Thank you. Pharmacy has transitioned to AUC monitoring for vancomycin. AUC/MAGDIEL is the preferred PK/PD target and is associated with decreased risk of nephrotoxicity compared to traditional trough targets.
[2024-04-25] MEDS: bisacodyL 10 MG SUPP PR STA (12:36)
[2024-04-25] MEDS: VANCOMYCIN HCL 1,000 MG/270 ML BAG IV SCH (14:03)
[2024-04-25] MEDS ORDERED: oxyCODONE HCL IR 5 MG TAB (IMMEDIATE RELEASE) PO PRN (16:44)
--- NOTE | 2024-04-25 18:49 | Ultrasound Report ---
Renal ultrasound History: Evaluate for hydronephrosis Comparison: CT from 04/24/2024 Technique: Grayscale and color Doppler ultrasound of the kidneys and urinary bladder performed Findings: Right kidney: The right kidney measures 10.1 cm in length. No visualized mass or hydronephrosis. Left kidney: The left kidney measures 10.8 cm in length. No visualized mass or hydronephrosis. The urinary bladder is nondistended and not visualized. Impression: Normal renal ultrasound. No hydronephrosis currently seen. Electronically signed by Sunny Funes 04-25-2024 6:49 PM
[2024-04-25] MEDS: ACETAMINOPHEN 500 MG TAB PO SCH (20:33)
[2024-04-25] MEDS: MoRPHine SULFATE 4 MG/ML 1 ML CARP\\VIAL IV PRN (20:41)
[2024-04-26 07:32] LABS: Basophils # (auto) 0.04 K/uL (0.00-0.20); Basophils % (auto) 0.7 %; Eosinophils # (auto) 0.08 K/uL (0.00-0.50); Eosinophils % (auto) 1.5 %; Hematocrit (blood only) 36.9 % (37.0-47.0); Hemoglobin 12.1 g/dl (12.0-16.0); Immature Granulocytes # (auto) 0.01 K/uL (0.01-0.20); Immature Granulocytes % (auto) 0.2 %; Lymphocytes # (auto) 2.05 K/uL (1.20-3.40); Lymphocytes % (auto) 38.2 %; Mean Corpuscular Hemoglobin 31.3 pg (25.0-34.0); Mean Corpuscular Hgb Conc 32.8 g/dL (32.0-36.0); Mean Corpuscular Volume 95.3 fL (80.0-100.0); Mean Platelet Volume 10.9 fL (9.4-12.4); Monocytes # (auto) 0.52 K/uL (0.11-0.59); Monocytes % (auto) 9.7 %; Neutrophils # (auto) 2.67 K/uL (1.40-6.50); Neutrophils % (auto) 49.7 %; Platelet Count 242 K/uL (130-400); RDW Coefficient of Variation 14.7 % (11.5-14.5); RDW Standard Deviation 50.7 fL (36.4-46.3); Red Blood Count 3.87 M/uL (4.20-5.40); White Blood Count 5.37 K/ul (4.8-10.8)
[2024-04-26 07:44] LABS: Albumin Globulin Ratio 1.1 (0.9-2); Albumin Level 2.6 gm/dl (3.4-5.0); BUN Creatinine Ratio 31.7 (10-20); Bilirubin,Total 0.5 mg/dl (0.2-1.0); Calcium 7.7 mg/dl (8.6-10.3); Creatinine Clr Calc Pharmacy 102.3 ml/min; Globulin 2.4 gm/dl (2.5-4.0); Magnesium 1.8 mg/dl (1.7-2.4); Potassium 4.2 mmol/L (3.5-5.1)
--- NOTE | 2024-04-26 12:24 | XRay Report ---
KUB HISTORY: stercoral colitis COMPARISON: None. FINDINGS: There is moderate retained stool. No bowel obstruction seen. No gross free air. Stable scol iosis. IMPRESSION: No acute findings. Electronically signed by: Miguel Duarte 04/26/2024 12:23 PM
--- NOTE | 2024-04-26 12:52 | Hospitalist Progress Note ---
Date of Service April 26, 2024 Assessment & Plan (1) Stercoral colitis: (2) Left acute arterial ischemic stroke, MCA (middle cerebral artery): (3) History of pulmonary embolism: (4) Atrial fibrillation: Plan The patient is a 74-year-old female with a past medical history including breast cancer, uterine cancer, skin cancer, gout, vitamin D deficiency, type 2 diabetes mellitus, hypertension, hyperlipidemia, diabetic neuropathy, depression anxiety, atrial fibrillation. Patient had a significant acute ischemic left MCA territory infarct on 03/30/2024, for which she was seen at [facility] in [place]. She was discharged for 04/05/2024 to [facility]. She did have an embolectomy performed while at [place], and reportedly has not been able to communicate well since that time. Patient had evidently developed low back pain, and was sent to [facility] for assessment. She had multiple imaging studies performed, which will need to be verified by our daytime radiology. The most ongoing concern is that of stercoral colitis, for which patient was referred to the hospital service after a 12-hour stay in the emergency department. #Stercoral colitis- Most reliable finding that we can determine on CT scan as responsible for patient's low back pain Placed on vancomycin IV and Zosyn IV N.p.o. Pantoprazole 40 mg IV daily Give normal saline 1 L bolus now, then NSS plus KCl 20 mEq at 100 mL/h x 2 L Acetaminophen 1 g IV every 8 hours as needed for mild pain or fever Zofran 4 mg IV every 6 hours as needed will repeat KUB and order soap suds enema. will increase miralax to TID. will stop vancomycin. Of note, multiple images performed assessing orthopedic function, of unclear relevance at this time Will ask daytime radiologist at [facility] to further interpret for clarity History of acute ischemic left MCA CVA on 03/30/2024, status post embolectomy- Patient with residual communication deficit and physical deficits Has been sent from [facility], which anticipate she will be to return there once GI issues have been treated Diabetes mellitus- Placed on Accu-Cheks with NovoLog SSI Holding insulin glargine at this time due to decreased oral intake History of PE/atrial fibrillation- Records review indicates patient has been on apixaban and flecainide at some time, this will need to be clarified during the daytime records. Admission and Anticipated Discharge Date Admission Date: April 25, 2024 Subjective Patient with expressive aphasia. She does nod her head, she reports having some discomfort. Review of Systems Review of Systems: All systems reviewed & are unremarkable except as noted in HPI & below Physical Exam Physical Exam: Laying in bed, not in any distress. abd is soft normal bowel sounds non tender Results & Data Results & Data Vital Signs (Past 12 Hours) Vital Signs Temp Pulse Resp BP Pulse Ox O2 Del Method 04/26/24 10:43 Room Air 04/26/24 10:32 36.4 C L 60 18 116/74 97 Room Air 04/26/24 07:30 36.6 C 87 18 127/85 96 Room Air 04/26/24 04:15 36.8 C 90 18 133/83 97 Room Air PG Care Time/CCT Total # of Minutes Spent Total Time Spent with Patient: Total time spent is greater than 50% in coordination of care (as documented) at patient's floor/unit and/or counseling patient: Coding Level of Care Code 32262 SUB INP/OBS CARE 3/50MIN Diagnoses Stercoral colitis K52.89 Left acute arterial ischemic stroke, MCA (middle cerebral artery) I63.512 History of pulmonary embolism Z86.711 Atrial fibrillation I48.91
[2024-04-26] MEDS: POLYETHYLENE (MIRALAX) 17 GM PACK PO SCH (13:23)
--- NOTE | 2024-04-26 15:46 | Electrocardiogram Report ---
Test Reason : Blood Pressure : */* mmHG Vent. Rate : 81 BPM Atrial Rate : * BPM P-R Int : * ms QRS Dur : 148 ms QT Int : 432 ms P-R-T Axes : * 41 -17 degrees QTcB Int : 501 ms Atrial fibrillation Non-specific intra-ventricular conduction block Abnormal ECG When compared with ECG of 30-Mar-2024 02:24, Atrial fibrillation has replaced Sinus rhythm Non-specific intra-ventricular conduction block has replaced Right bundle branch block Confirmed by Koffi Longoria ([id number]) on 04/26/2024 3:45:55 PM Referred By: REFERRED SELF Confirmed By: Koffi Longoria
--- NOTE | 2024-04-26 15:47 | Gastrointestinal Consultation ---
Date of Consultation April 26, 2024 Assessment & Plan (1) Abnormal CT scan, colon: Patient seen and evaluated with Dr. Aldrich. Discussed GI imaging with radiology team. -Would favor tap water enema over soapsud enema. Order changed. -Ok to continue with bowel regimen of Miralax 17 gm TID, but titrate as needed. -Consider repeat abdominal imaging in 1-2 days or sooner if symptoms worsening significantly/change. -Check thyroid function. -Continue treatment of back pain per hospitalist team as it does not appear related to the constipation. Plan I saw and examined this patient with our nurse practitioner and agree with her assessment and plan. And with radiology most consistent with large amount of stool throughout the colon especially in the rectum. Doubt significant colitis. Suspect recent stroke with limited mobility has contributed to fecal burden. Her underlying disease also may be contributing to bowel dysfunction. Complaining appears to be related to her back pain and leg pain. Recommend avoiding soapsuds enemas and just use tapwater enemas as needed and continue her MiraLAX regimen. No need for any endoscopic intervention at this time. History of Present Illness Reason for Consultation: "stercoral colitis" Attending Physician: Hunter Palomares History of Present Illness Patient is a 74 yo female with recent ischemic L MCA infarct requiring embolectomy at [facility]. She returned to the ED due to back pain she was experiencing at [facility]. GI has been consulted due to possible CT findings of stercoral colitis. She had a KUB this morning that indicates fecal retention as well. It appears that her bowel regimen has adjusted today to be Miralax 17 gm TID. She has some issues with expressive aphasia. She notes to us at the time of evaluation that she has severe back pain. MRI & CT work-up has been performed and treatment is ongoing per hospitalist service. She had a loose small stool today. Last colonoscopy 2021 with polyps noted. No further family history was able to be obtained during the evaluation due to expressive aphasia. Allergies Allergy/AdvReac Type Severity Reaction Status Date / Time levofloxacin Allergy Severe Rash Verified 02/27/24 14:52 Home Medications Medication Instructions Recorded Confirmed Type flecainide 100 mg tablet 100 mg PO Q12H 12/25/18 04/24/24 History lorazepam 0.5 mg tablet 0.5 mg PO DAILY PRN anxiety #20 02/23/24 04/24/24 Rx tabs Fleet Enema 133 ml ONCE constipation 04/24/24 04/24/24 History Insta-Glucose 15 g PO ONCE PRN Hypoglycemia 04/24/24 04/24/24 History acetaminophen 325 mg tablet 650 mg PO Q6H PRN Pain 04/24/24 04/24/24 History (Tylenol) apixaban 5 mg tablet 5 mg PO BID 04/24/24 04/24/24 History aspirin 81 mg capsule 81 mg PO DAILY 04/24/24 04/24/24 History baclofen 10 mg tablet 10 mg PO TID 04/24/24 04/24/24 History bisacodyl 10 mg rectal suppository 10 mg ME DAILY PRN Constipation 04/24/24 04/24/24 History cefdinir 300 mg capsule 300 mg PO Q12H 04/24/24 04/24/24 History docusate sodium 100 mg capsule 100 mg PO BID 04/24/24 04/24/24 History escitalopram oxalate 10 mg tablet 10 mg PO DAILY 04/24/24 04/24/24 History (Lexapro) ezetimibe 10 mg tablet 10 mg PO DAILY 04/24/24 04/24/24 History glucagon HCl 1 mg solution for 1 mg subcut ONCE PRN Hypoglycemia 04/24/24 04/24/24 History injection guaifenesin 600 mg tablet, 600 mg PO Q12H 04/24/24 04/24/24 History extended release 12 hr insulin glargine 100 unit/mL (3 32 unit subcut PM 04/24/24 04/24/24 History mL) subcutaneous pen, sensor magnesium hydroxide 400 mg/5 mL 30 ml PO DAILY PRN Constipation 04/24/24 04/24/24 History oral suspension metoprolol tartrate 25 mg tablet 25 mg PO BID 04/24/24 04/24/24 History ondansetron HCl 4 mg tablet 4 mg PO Q4H 04/24/24 04/24/24 History pantoprazole 40 mg tablet,delayed 40 mg PO DAILY 04/24/24 04/24/24 History release polyethylene glycol 3350 17 17 g PO DAILY 04/24/24 04/24/24 History gram/dose oral powder sennosides 8.6 mg-docusate sodium 1 tab-cap PO DAILY PRN Constipation 04/24/24 04/24/24 History 50 mg tablet (Senokot-S) simethicone 80 mg tablet 160 mg PO Q8H PRN flatulence 04/24/24 04/24/24 History zinc oxide 20 % topical ointment 1 applic topical BID 04/24/24 04/24/24 History Patient History Medical History Osteomyelitis of third toe of left foot Fear of needles avoid IV in hand if possible. requests numbing spray if available. On anticoagulant therapy History of cardioversion x 2 Limb alert care status RUE Tubular adenoma of colon Diverticulosis of intestine Surgical History History of toe surgery removal of left middle toe 07/2022 History of lumpectomy of both breasts History of surgery tumor removed from ovary History of tonsillectomy History of hernia surgery History of breast biopsy History of colonoscopy History of total abdominal hysterectomy and bilateral salpingo-oophorectomy History of modified radical mastectomy of both breasts History of hysteroscopy History of dilation and curettage Status post debridement for Necrot Infect with removal of mesh History of breast reconstruction Family History Father Prostate cancer Family/Other Myocardial infarction Denies family history of Ovarian cancer Breast cancer Colorectal cancer Social History Smoking Status: Never smoker Second Hand Exposure: No; Do You Dip or Chew Tobacco: No; Hx Alcohol Use: No Hx Substance Use: No Preferred Language: Guatemalan Communication Ability: Unable Communication Ability Comment: Yes or no, shaking head Visual Impairment: No Limitations Hearing Ability: Normal Car Ferry Captain Required: No Beliefs That Will Affect Care: None marital status: Current Living Situation: Spouse current occupational status: 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 How many Children do You have: 2 Feels Safe at Home: Yes Childhood Exposure to Second-Hand Smoke: No Diet: diabetic caffeine: Yes Dental Care, Regularly: Yes Physical Activity Frequency: Daily Seatbelt Use: always Sunscreen Use: No Assistive Devices: None Review of Systems Review of Systems: limited due to expressive issues from recent stroke Musculoskeletal: back pain Physical Exam Respiratory: Auscultation: lungs clear to auscultation bilaterally Cardiovascular: Rate/Rhythm: regular rate Heart Sounds: normal S1 and normal S2 Gastrointestinal (Abdomen): Inspection/Auscultation: normal bowel sounds Percussion/Palpation: abdomen soft; no guarding and abdomen not rigid Results & Data Vital Signs (Past 12 Hours) Vital Signs Temp Pulse Resp BP Pulse Ox O2 Del Method 04/26/24 10:43 Room Air 04/26/24 10:32 36.4 C L 60 18 116/74 97 Room Air 04/26/24 07:30 36.6 C 87 18 127/85 96 Room Air 04/26/24 04:15 36.8 C 90 18 133/83 97 Room Air Laboratory Results Laboratory Results - last 48 hr 04/25/24 04/25/24 04/25/24 01:42 02:47 07:27 WBC 5.83 RBC 3.56 L Hgb 11.2 L Hct 34.4 L MCV 96.6 MCH 31.5 MCHC 32.6 RDW Std Deviation 50.2 H RDW Coeff of Linda 14.2 Plt Count 243 MPV 10.7 Immature Gran % (Auto) 0.3 Neut % (Auto) 65.1 Lymph % (Auto) 25.7 Gaston % (Auto) 7.7 Eos % (Auto) 0.5 Baso % (Auto) 0.7 Neut # (Auto) 3.79 Lymph # (Auto) 1.50 Gaston # (Auto) 0.45 Eos # (Auto) 0.03 Baso # (Auto) 0.04 Immature Gran # (Auto) 0.02 Sodium 143 Potassium 3.6 Chloride 117 H Carbon Dioxide 23 Anion Gap 3 BUN 17 Creatinine 0.49 L Est Cr Clr Drug Dosing 126.9 eGFR 97.62 BUN/Creatinine Ratio 34.7 H Glucose 140 H POC Glucose 158 H 132 H Calcium 6.1 L D Magnesium 1.4 L Total Bilirubin 0.4 AST 12 L ALT 14 Alkaline Phosphatase 60 Total Protein 3.8 L D Albumin 2.1 L Globulin 1.7 L Albumin/Globulin Ratio 1.2 04/25/24 04/25/24 04/25/24 09:03 12:35 18:49 WBC 6.11 RBC 3.97 L Hgb 12.4 Hct 37.6 MCV 94.7 MCH 31.2 MCHC 33.0 RDW Std Deviation 49.8 H RDW Coeff of Linda 14.5 Plt Count 273 MPV 10.6 Immature Gran % (Auto) 0.3 Neut % (Auto) 66.0 Lymph % (Auto) 24.2 Gaston % (Auto) 8.3 Eos % (Auto) 0.5 Baso % (Auto) 0.7 Neut # (Auto) 4.03 Lymph # (Auto) 1.48 Gaston # (Auto) 0.51 Eos # (Auto) 0.03 Baso # (Auto) 0.04 Immature Gran # (Auto) 0.02 Sodium 139 Potassium 4.6 D Chloride 109 H Carbon Dioxide 26 Anion Gap 4 BUN 18 Creatinine 0.62 Est Cr Clr Drug Dosing 100.3 eGFR 92.24 BUN/Creatinine Ratio 29.0 H Glucose 133 H POC Glucose 163 H 208 H Calcium 7.8 L Magnesium Total Bilirubin 0.5 AST 15 ALT 17 Alkaline Phosphatase 93 Total Protein 5.0 L D Albumin 2.7 L Globulin 2.3 L Albumin/Globulin Ratio 1.2 04/25/24 04/26/24 04/26/24 21:07 06:59 07:48 WBC 5.37 RBC 3.87 L Hgb 12.1 Hct 36.9 L MCV 95.3 MCH 31.3 MCHC 32.8 RDW Std Deviation 50.7 H RDW Coeff of Linda 14.7 H Plt Count 242 MPV 10.9 Immature Gran % (Auto) 0.2 Neut % (Auto) 49.7 Lymph % (Auto) 38.2 Gaston % (Auto) 9.7 Eos % (Auto) 1.5 Baso % (Auto) 0.7 Neut # (Auto) 2.67 Lymph # (Auto) 2.05 Gaston # (Auto) 0.52 Eos # (Auto) 0.08 Baso # (Auto) 0.04 Immature Gran # (Auto) 0.01 Sodium 139 Potassium 4.2 Chloride 110 H Carbon Dioxide 26 Anion Gap 3 BUN 19 Creatinine 0.60 Est Cr Clr Drug Dosing 102.3 eGFR 92.97 BUN/Creatinine Ratio 31.7 H Glucose 119 H POC Glucose 137 H 122 H Calcium 7.7 L Magnesium 1.8 Total Bilirubin 0.5 AST 14 ALT 15 Alkaline Phosphatase 72 Total Protein 5.0 L Albumin 2.6 L Globulin 2.4 L Albumin/Globulin Ratio 1.1 04/26/24 11:55 WBC RBC Hgb Hct MCV MCH MCHC RDW Std Deviation RDW Coeff of Linda Plt Count MPV Immature Gran % (Auto) Neut % (Auto) Lymph % (Auto) Gaston % (Auto) Eos % (Auto) Baso % (Auto) Neut # (Auto) Lymph # (Auto) Gaston # (Auto) Eos # (Auto) Baso # (Auto) Immature Gran # (Auto) Sodium Potassium Chloride Carbon Dioxide Anion Gap BUN Creatinine Est Cr Clr Drug Dosing eGFR BUN/Creatinine Ratio Glucose POC Glucose 173 H Calcium Magnesium Total Bilirubin AST ALT Alkaline Phosphatase Total Protein Albumin Globulin Albumin/Globulin Ratio Diagnostic Findings Renal Ultrasound 04/25/24 16:38 Renal ultrasound History: Evaluate for hydronephrosis Comparison: CT from 04/24/2024 Technique: Grayscale and color Doppler ultrasound of the kidneys and urinary bladder performed Findings: Right kidney: The right kidney measures 10.1 cm in length. No visualized mass or hydronephrosis. Left kidney: The left kidney measures 10.8 cm in length. No visualized mass or hydronephrosis. The urinary bladder is nondistended and not visualized. Impression: Normal renal ultrasound. No hydronephrosis currently seen. Electronically signed by Sunny Funes 04-25-2024 6:49 PM KUB X-Ray 04/26/24 10:11 KUB HISTORY: stercoral colitis COMPARISON: None. FINDINGS: There is moderate retained stool. No bowel obstruction seen. No gross free air. Stable scoliosis. IMPRESSION: No acute findings. Electronically signed by: Miguel Duarte 04/26/2024 12:23 PM PG Care Time/CCT Total # of Minutes Spent Total Time Spent with Patient: Total time spent is greater than 50% in coordination of care (as documented) at patient's floor/unit and/or counseling patient: Coding Level of Care Code 01760 INT INP/OBS CARE 3/75MIN Diagnoses Abnormal CT scan, colon R93.3
[2024-04-26 16:35] LABS: Thyroid Stimulating Hormone 4.23 uIu/ml (0.300-4.500)
[2024-04-26] MEDS: BACLOFEN 10 MG TAB PO SCH (21:47)
[2024-04-27 06:44] LABS: Basophils # (auto) 0.04 K/uL (0.00-0.20); Basophils % (auto) 0.9 %; Eosinophils # (auto) 0.07 K/uL (0.00-0.50); Eosinophils % (auto) 1.5 %; Hematocrit (blood only) 37.9 % (37.0-47.0); Hemoglobin 12.5 g/dl (12.0-16.0); Immature Granulocytes # (auto) 0.02 K/uL (0.01-0.20); Immature Granulocytes % (auto) 0.4 %; Lymphocytes # (auto) 1.52 K/uL (1.20-3.40); Lymphocytes % (auto) 32.7 %; Mean Corpuscular Hemoglobin 31.3 pg (25.0-34.0); Mean Platelet Volume 10.6 fL (9.4-12.4); Monocytes # (auto) 0.38 K/uL (0.11-0.59); Monocytes % (auto) 8.2 %; Neutrophils # (auto) 2.62 K/uL (1.40-6.50); Neutrophils % (auto) 56.3 %; Platelet Count 240 K/uL (130-400); RDW Coefficient of Variation 14.5 % (11.5-14.5); Red Blood Count 3.99 M/uL (4.20-5.40); White Blood Count 4.65 K/ul (4.8-10.8)
[2024-04-27 06:54] LABS: Albumin Globulin Ratio 1.1 (0.9-2); Albumin Level 2.7 gm/dl (3.4-5.0); BUN Creatinine Ratio 26.1 (10-20); Bilirubin,Total 0.6 mg/dl (0.2-1.0); C Reactive Protein 1.77 mg/dl (0-0.5); Calcium 7.9 mg/dl (8.6-10.3); Creatinine Clr Calc Pharmacy 88.9 ml/min; Globulin 2.4 gm/dl (2.5-4.0); Magnesium 1.7 mg/dl (1.7-2.4); Potassium 3.8 mmol/L (3.5-5.1); Total Protein 5.1 gm/dl (6.0-8.3)
--- NOTE | 2024-04-27 10:30 | Gastroenterology Progress Note ---
Date of Service April 27, 2024 Assessment & Plan (1) Abnormal CT scan, colon: Plan: -Continue Miralax 17 gm po TID; can titrate as needed based on response -Consider repeat KUB in AM to ensure improvement of fecal burden Admission and Anticipated Discharge Date Admission Date: April 25, 2024 Supervising Physician Co-Signing Physician Notes I saw and examined this patient with our nurse practitioner and agree with her assessment and plan. Clinically improved. Less back pain. Denies abdominal pain. Has had multiple bowel movements status post tapwater enemas and MiraLAX orally. Continue present bowel regimen. No need for any endoscopic intervention at this time. Await repeat KUB. Subjective Patient is a 74 yo female with constipation/abnormal CT scan colon. Since our encounter on 04/26/24, she had a tapwater enema. She continues with Miralax 17 gm TID dosing. Discussed with RN. She is moving her bowels. No abdominal pain. Some back pain continues. Review of Systems Gastrointestinal: no abdominal pain, no diarrhea/loose stools and no blood in stools Musculoskeletal: no back pain Physical Exam Constitutional: well developed Respiratory: normal respiratory effort Cardiovascular: Rate/Rhythm: regular rate Gastrointestinal (Abdomen): normal bowel sounds, soft, nontender, no hepatosplenomegaly Neurologic: expressive aphasia Psychiatric: Orientation: alert Results & Data Results & Data Vital Signs (Past 12 Hours) Vital Signs Temp Pulse Pulse Resp BP Pulse Ox O2 Del Method 04/27/24 07:26 90 04/27/24 07:26 Room Air 04/27/24 07:25 36.5 C 90 18 115/83 98 Room Air 04/27/24 02:57 36.5 C 83 18 110/73 98 Room Air 04/27/24 00:00 95 H 04/26/24 22:28 36.5 C 95 H 18 128/84 97 Room Air PG Care Time/CCT Total # of Minutes Spent Total Time Spent with Patient: Total time spent is greater than 50% in coordination of care (as documented) at patient's floor/unit and/or counseling patient: Coding Level of Care Code 35862 SUB INP/OBS CARE 2/35MIN Diagnoses Abnormal CT scan, colon R93.3
--- NOTE | 2024-04-27 14:45 | XRay Report ---
KUB HISTORY: stool burden COMPARISON STUDY: 04/26/2024 FINDINGS: There is moderate retained stool. No bowel obstruction seen. No gross free air. Stable scol iosis. IMPRESSION: Moderate retained stool. ACT 112: Negative or not required by law. The above report was generated using voice recognition software. It may contain grammatical, syntax o r spelling errors. Electronically signed by: Miguel Duarte M.D. 04/27/2024 2:43 PM
--- NOTE | 2024-04-27 21:46 | Hospitalist Progress Note ---
Date of Service April 27, 2024 Assessment & Plan (1) Stercoral colitis: (2) Left acute arterial ischemic stroke, MCA (middle cerebral artery): (3) History of pulmonary embolism: (4) Atrial fibrillation: Plan The patient is a 74-year-old female with a past medical history including breast cancer, uterine cancer, skin cancer, gout, vitamin D deficiency, type 2 diabetes mellitus, hypertension, hyperlipidemia, diabetic neuropathy, depression anxiety, atrial fibrillation. Patient had a significant acute ischemic left MCA territory infarct on 03/30/2024, for which she was seen at [facility] in [place]. She was discharged for 04/05/2024 to [facility]. She did have an embolectomy performed while at [place], and reportedly has not been able to communicate well since that time. Patient had evidently developed low back pain, and was sent to [facility] for assessment. She had multiple imaging studies performed, which will need to be verified by our daytime radiology. The most ongoing concern is that of stercoral colitis, for which patient was referred to the hospital service after a 12-hour stay in the emergency department. #Stercoral colitis- Large fecal ball noted on imaging. Most reliable finding that we can determine on CT scan as responsible for patient's low back pain Placed on vancomycin IV and Zosyn IV Now on zosyn Tap water enema ordered. appreciate GI. Pantoprazole 40 mg IV daily Give normal saline 1 L bolus now, then NSS plus KCl 20 mEq at 100 mL/h x 2 L Acetaminophen 1 g IV every 8 hours as needed for mild pain or fever Zofran 4 mg IV every 6 hours as needed due to cramping will cut back on miralax. repeat kub, shows retained stool. order repeat kub Of note, multiple images performed assessing orthopedic function, of unclear relevance at this time History of acute ischemic left MCA CVA on 03/30/2024, status post embolectomy- Patient with residual communication deficit and physical deficits Has been sent from [facility]hab, which anticipate she will be to return there once GI issues have been treated Diabetes mellitus- Placed on Accu-Cheks with NovoLog SSI Holding insulin glargine at this time due to decreased oral intake History of PE/atrial fibrillation- Records review indicates patient has been on apixaban and flecainide at some time, this will need to be clarified during the daytime records. Admission and Anticipated Discharge Date Admission Date: April 25, 2024 Subjective Patient complaining of cramping "gas" pain. Patient had moderate BM. Physical Exam Physical Exam: Laying in bed, not in any distress. abd is soft normal bowel sounds non tender Results & Data Results & Data Vital Signs (Past 12 Hours) Vital Signs Temp Pulse Resp BP Pulse Ox O2 Del Method 04/27/24 19:37 36.5 C 98 H 20 115/73 94 Room Air 04/27/24 15:33 36.2 C L 87 18 113/73 96 Room Air 04/27/24 10:57 36.4 C L 84 18 105/70 95 Room Air PG Care Time/CCT Total # of Minutes Spent Total Time Spent with Patient: Total time spent is greater than 50% in coordination of care (as documented) at patient's floor/unit and/or counseling patient: Coding Level of Care Code 10992 SUB INP/OBS CARE 2/35MIN Diagnoses Stercoral colitis K52.89 Left acute arterial ischemic stroke, MCA (middle cerebral artery) I63.512 History of pulmonary embolism Z86.711 Atrial fibrillation I48.91
[2024-04-28 08:27] LABS: Hematocrit (blood only) 39.1 % (37.0-47.0); Hemoglobin 12.9 g/dl (12.0-16.0); Mean Platelet Volume 11.2 fL (9.4-12.4); Platelet Count 232 K/uL (130-400); RDW Coefficient of Variation 14.6 % (11.5-14.5); Red Blood Count 4.16 M/uL (4.20-5.40); White Blood Count 4.61 K/ul (4.8-10.8)
[2024-04-28 08:28] LABS: BUN Creatinine Ratio 28.6 (10-20); C Reactive Protein 2.06 mg/dl (0-0.5); Calcium 7.9 mg/dl (8.6-10.3); Creatinine Clr Calc Pharmacy 109.2 ml/min; Magnesium 1.6 mg/dl (1.7-2.4); Potassium 3.8 mmol/L (3.5-5.1)
[2024-04-28] MEDS: POLYETHYLENE (MIRALAX) 17 GM PACK PO SCH (09:17)
--- NOTE | 2024-04-28 11:07 | XRay Report ---
KUB HISTORY: Constipation COMPARISON STUDY: 04/27/2024 FINDINGS: There is mild retained stool, improved. No bowel obstruction seen. No gross free air. Stabl e scoliosis. IMPRESSION: Mild retained stool, improved. ACT 112: Negative or not required by law. The above report was generated using voice recognition software. It may contain grammatical, syntax o r spelling errors. Electronically signed by: Miguel Duarte M.D. 04/28/2024 11:06 AM
[2024-04-28] MEDS: CELECOXIB 100 MG CAP PO ONE (17:03)
--- NOTE | 2024-04-28 22:32 | Hospitalist Progress Note ---
Date of Service April 28, 2024 Assessment & Plan (1) Stercoral colitis: (2) Left acute arterial ischemic stroke, MCA (middle cerebral artery): (3) History of pulmonary embolism: (4) Atrial fibrillation: Plan The patient is a 74-year-old female with a past medical history including breast cancer, uterine cancer, skin cancer, gout, vitamin D deficiency, type 2 diabetes mellitus, hypertension, hyperlipidemia, diabetic neuropathy, depression anxiety, atrial fibrillation. Patient had a significant acute ischemic left MCA territory infarct on 03/30/2024, for which she was seen at [facility] in [place]. She was discharged for 04/05/2024 to [facility]hab. She did have an embolectomy performed while at [place], and reportedly has not been able to communicate well since that time. Patient had evidently developed low back pain, and was sent to [facility] for assessment. She had multiple imaging studies performed, which will need to be verified by our daytime radiology. The most ongoing concern is that of stercoral colitis, for which patient was referred to the hospital service after a 12-hour stay in the emergency department. #Stercoral colitis- Large fecal ball noted on imaging. Most reliable finding that we can determine on CT scan as responsible for patient's low back pain Placed on vancomycin IV and Zosyn IV Now on zosyn Tap water enema completed. appreciate GI. Pantoprazole 40 mg IV daily Acetaminophen 1 g IV every 8 hours as needed for mild pain or fever. Added one dose of celebrex for pain. stopped narcotics as this can worsened fecal retention. Zofran 4 mg IV every 6 hours as needed due to cramping miralax is now once a day. repeat KUB now showing improvement fecal retention. Informed case management, working on placement. Of note, multiple images performed assessing orthopedic function, of unclear r elevance at this time History of acute ischemic left MCA CVA on 03/30/2024, status post embolectomy- Patient with residual communication deficit and physical deficits Has been sent from [facility], which anticipate she will be to return there once GI issues have been treated Diabetes mellitus- Placed on Accu-Cheks with NovoLog SSI Holding insulin glargine at this time due to decreased oral intake History of PE/atrial fibrillation- Records review indicates patient has been on apixaban and flecainide; will contiue. Admission and Anticipated Discharge Date Admission Date: April 25, 2024 Subjective 74 yo female having multiple bowel movements today. Physical Exam Physical Exam: Laying in bed, not in any distress. abd is soft normal bowel sounds non tender Results & Data Results & Data Vital Signs (Past 12 Hours) Vital Signs Temp Pulse Pulse Resp BP Pulse Ox O2 Del Method 04/28/24 22:26 Room Air 04/28/24 19:33 36.6 C 88 20 121/74 95 Room Air 04/28/24 15:47 36.9 C 90 19 108/68 95 Room Air 04/28/24 15:09 80 04/28/24 11:19 36.4 C L 86 18 115/77 96 Room Air PG Care Time/CCT Total # of Minutes Spent Total Time Spent with Patient: Total time spent is greater than 50% in coordination of care (as documented) at patient's floor/unit and/or counseling patient: Coding Level of Care Code 16004 SUB INP/OBS CARE 3/50MIN Diagnoses Stercoral colitis K52.89 Left acute arterial ischemic stroke, MCA (middle cerebral artery) I63.512 History of pulmonary embolism Z86.711 Atrial fibrillation I48.91
[2024-04-29 07:37] LABS: Hematocrit (blood only) 38.1 % (37.0-47.0); Hemoglobin 12.8 g/dl (12.0-16.0); Mean Corpuscular Hemoglobin 31.9 pg (25.0-34.0); Mean Corpuscular Hgb Conc 33.6 g/dL (32.0-36.0); Mean Platelet Volume 11.2 fL (9.4-12.4); Platelet Count 257 K/uL (130-400); RDW Coefficient of Variation 14.5 % (11.5-14.5); RDW Standard Deviation 49.9 fL (36.4-46.3); Red Blood Count 4.01 M/uL (4.20-5.40); White Blood Count 4.26 K/ul (4.8-10.8)
[2024-04-29 08:25] LABS: C Reactive Protein 2.2 mg/dl (0-0.5); Creatinine Clr Calc Pharmacy 94.2 ml/min; Potassium 3.8 mmol/L (3.5-5.1)
[2024-04-29] MEDS: LIDOCAINE 5% 1 PATCH TD STA (11:36)
--- NOTE | 2024-04-29 22:46 | Hospitalist Progress Note ---
Date of Service April 29, 2024 Assessment & Plan (1) Stercoral colitis: (2) Left acute arterial ischemic stroke, MCA (middle cerebral artery): (3) History of pulmonary embolism: (4) Atrial fibrillation: Plan The patient is a 74-year-old female with a past medical history including breast cancer, uterine cancer, skin cancer, gout, vitamin D deficiency, type 2 diabetes mellitus, hypertension, hyperlipidemia, diabetic neuropathy, depression anxiety, atrial fibrillation. Patient had a significant acute ischemic left MCA territory infarct on 03/30/2024, for which she was seen at [facility] in [place]. She was discharged for 04/05/2024 to [facility]. She did have an embolectomy performed while at [place], and reportedly has not been able to communicate well since that time. Patient had evidently developed low back pain, and was sent to [facility] for assessment. She had multiple imaging studies performed, which will need to be verified by our daytime radiology. The most ongoing concern is that of stercoral colitis, for which patient was referred to the hospital service after a 12-hour stay in the emergency department. #Stercoral colitis- Large fecal ball noted on imaging. Most reliable finding that we can determine on CT scan as responsible for patient's low back pain Placed on vancomycin IV and Zosyn IV Now on zosyn Tap water enema completed. appreciate GI. Pantoprazole 40 mg IV daily Acetaminophen 1 g IV every 8 hours as needed for mild pain or fever. Added one dose of celebrex for pain. stopped narcotics as this can worsened fecal retention. Zofran 4 mg IV every 6 hours as needed Continue miralax once a day. Appears that fecal retention is resolved. Informed case management, working on placement. Of note, multiple images performed assessing orthopedic function, of unclear relevance at this time History of acute ischemic left MCA CVA on 03/30/2024, status post embolectomy- Patient with residual communication deficit and physical deficits Has been sent from [facility], which anticipate she will be to return there once GI issues have been treated Diabetes mellitus- Placed on Accu-Cheks with NovoLog SSI Holding insulin glargine at this time due to decreased oral intake History of PE/atrial fibrillation- Records review indicates patient has been on apixaban and flecainide; will contiue. Admission and Anticipated Discharge Date Admission Date: April 25, 2024 Subjective Patient reports pain is controlled. No symptoms of bowel obstruction. Physical Exam Physical Exam: Laying in bed, not in any distress. abd is soft normal bowel sounds non tender Results & Data Results & Data Vital Signs (Past 12 Hours) Vital Signs Temp Pulse Pulse Resp BP Pulse Ox O2 Del Method 04/29/24 19:47 37.0 C 91 H 22 104/65 96 Room Air 04/29/24 16:45 81 04/29/24 16:00 36.5 C 91 H 18 123/70 97 Room Air 04/29/24 12:00 36.5 C 85 18 102/56 L 97 Room Air PG Care Time/CCT Total # of Minutes Spent Total Time Spent with Patient: Total time spent is greater than 50% in coordination of care (as documented) at patient's floor/unit and/or counseling patient: Coding Level of Care Code 94962 SUB INP/OBS CARE 2/35MIN Diagnoses Stercoral colitis K52.89 Left acute arterial ischemic stroke, MCA (middle cerebral artery) I63.512 History of pulmonary embolism Z86.711 Atrial fibrillation I48.91
[2024-04-30] MEDS: MELATONIN 3 MG TAB PO PRN (00:38)
[2024-04-30] MEDS: LIDOCAINE 5% 1 PATCH TD SCH (09:06)
[2024-04-30 09:08] LABS: Hematocrit (blood only) 38.4 % (37.0-47.0); Hemoglobin 13.1 g/dl (12.0-16.0); Mean Corpuscular Hemoglobin 32.1 pg (25.0-34.0); Mean Corpuscular Hgb Conc 34.1 g/dL (32.0-36.0); Mean Corpuscular Volume 94.1 fL (80.0-100.0); Platelet Count 247 K/uL (130-400); RDW Coefficient of Variation 14.5 % (11.5-14.5); Red Blood Count 4.08 M/uL (4.20-5.40); White Blood Count 4.49 K/ul (4.8-10.8)
[2024-04-30 09:24] LABS: BUN Creatinine Ratio 21.4 (10-20); C Reactive Protein 1.7 mg/dl (0-0.5); Creatinine Clr Calc Pharmacy 107.7 ml/min; Potassium 3.6 mmol/L (3.5-5.1)
[2024-04-30] MEDS: ADVANCED PROBIOTIC 625 MG CAPSULE PO SCH (11:12)
--- NOTE | 2024-04-30 22:59 | Hospitalist Progress Note ---
Date of Service April 30, 2024 Assessment & Plan (1) Stercoral colitis: (2) Left acute arterial ischemic stroke, MCA (middle cerebral artery): (3) History of pulmonary embolism: (4) Atrial fibrillation: Plan The patient is a 74-year-old female with a past medical history including breast cancer, uterine cancer, skin cancer, gout, vitamin D deficiency, type 2 diabetes mellitus, hypertension, hyperlipidemia, diabetic neuropathy, depression anxiety, atrial fibrillation. Patient had a significant acute ischemic left MCA territory infarct on 03/30/2024, for which she was seen at [facility] in [place]. She was discharged for 04/05/2024 to [facility]. She did have an embolectomy performed while at [place], and reportedly has not been able to communicate well since that time. Patient had evidently developed low back pain, and was sent to [facility] for assessment. She had multiple imaging studies performed, which will need to be verified by our daytime radiology. The most ongoing concern is that of stercoral colitis, for which patient was referred to the hospital service after a 12-hour stay in the emergency department. #Stercoral colitis- Large fecal ball noted on imaging. Most reliable finding that we can determine on CT scan as responsible for patient's low back pain Placed on vancomycin IV and Zosyn IV Stopped zosyn. Tap water enema completed. appreciate GI. Pantoprazole 40 mg IV daily Acetaminophen 1 g IV every 8 hours as needed for mild pain or fever. Added one dose of celebrex for pain. stopped narcotics as this can worsened fecal retention. Zofran 4 mg IV every 6 hours as needed Continue miralax once a day but now PRN. Appears that fecal retention is resolved. Informed case management, working on placement. Of note, multiple images performed assessing orthopedic function, of unclear relevance at this time History of acute ischemic left MCA CVA on 03/30/2024, status post embolectomy- Patient with residual communication deficit and physical deficits Has been sent from [facility], which anticipate she will be to return there once GI issues have been treated Diabetes mellitus- Placed on Accu-Cheks with NovoLog SSI Holding insulin glargine at this time due to decreased oral intake History of PE/atrial fibrillation- Records review indicates patient has been on apixaban and flecainide; will continue. Right hip pain Patient continues to have this. Trying to limit narcotics given that patient came in with stercoral colitis. Risk of bleeding with NSAIDs due to eliquis use. on tylenol, lidocaine patch baclofen. Admission and Anticipated Discharge Date Admission Date: April 25, 2024 Subjective 74 yo female contiues to have right hip pain. Physical Exam Physical Exam: Laying in bed, not in any distress. abd is soft normal bowel sounds non tender Results & Data Results & Data Vital Signs (Past 12 Hours) Vital Signs Temp Pulse Resp BP Pulse Ox O2 Del Method 04/30/24 19:43 36.8 C 92 H 18 124/79 96 Room Air 04/30/24 16:45 37.0 C 93 H 18 130/79 94 Room Air PG Care Time/CCT Total # of Minutes Spent Total Time Spent with Patient: Total time spent is greater than 50% in coordination of care (as documented) at patient's floor/unit and/or counseling patient: Coding Level of Care Code 62090 SUB INP/OBS CARE 3/50MIN Diagnoses Stercoral colitis K52.89 Left acute arterial ischemic stroke, MCA (middle cerebral artery) I63.512 History of pulmonary embolism Z86.711 Atrial fibrillation I48.91
[2024-05-01 06:09] LABS: Hematocrit (blood only) 37.5 % (37.0-47.0); Hemoglobin 12.4 g/dl (12.0-16.0); Mean Corpuscular Hemoglobin 31.3 pg (25.0-34.0); Mean Corpuscular Hgb Conc 33.1 g/dL (32.0-36.0); Mean Corpuscular Volume 94.7 fL (80.0-100.0); Platelet Count 243 K/uL (130-400); RDW Coefficient of Variation 14.6 % (11.5-14.5); RDW Standard Deviation 51.2 fL (36.4-46.3); Red Blood Count 3.96 M/uL (4.20-5.40); White Blood Count 5.21 K/ul (4.8-10.8)
[2024-05-01 06:20] LABS: BUN Creatinine Ratio 20.6 (10-20); Calcium 8.1 mg/dl (8.6-10.3); Creatinine Clr Calc Pharmacy 95.7 ml/min; Potassium 3.9 mmol/L (3.5-5.1)
--- NOTE | 2024-05-01 21:34 | Hospitalist Progress Note ---
Date of Service May 01, 2024 Assessment & Plan (1) Stercoral colitis: (2) Left acute arterial ischemic stroke, MCA (middle cerebral artery): (3) History of pulmonary embolism: (4) Atrial fibrillation: Plan The patient is a 74-year-old female with a past medical history including breast cancer, uterine cancer, skin cancer, gout, vitamin D deficiency, type 2 diabetes mellitus, hypertension, hyperlipidemia, diabetic neuropathy, depression anxiety, atrial fibrillation. Patient had a significant acute ischemic left MCA territory infarct on 03/30/2024, for which she was seen at [facility] in [place]. She was discharged for 04/05/2024 to [facility]hab. She did have an embolectomy performed while at [place], and reportedly has not been able to communicate well since that time. Patient had evidently developed low back pain, and was sent to [facility] for assessment. She had multiple imaging studies performed, which will need to be verified by our daytime radiology. The most ongoing concern is that of stercoral colitis, for which patient was referred to the hospital service after a 12-hour stay in the emergency department. #Stercoral colitis- Large fecal ball noted on imaging. Most reliable finding that we can determine on CT scan as responsible for patient's low back pain Placed on vancomycin IV and Zosyn IV Stopped zosyn. Tap water enema completed. appreciate GI. Pantoprazole 40 mg IV daily Acetaminophen 1 g IV every 8 hours as needed for mild pain or fever. Added one dose of celebrex for pain. stopped narcotics as this can worsened fecal retention. Zofran 4 mg IV every 6 hours as needed Continue miralax once a day but now PRN. Appears that fecal retention is resolved. now with loose stools, will monitor. keep urinary catheter until stools form as purewick could get contaminated with stool becoming a source for infection. Informed case management, working on placement. Of note, multiple images performed assessing orthopedic function, of unclear relevance at this time History of acute ischemic left MCA CVA on 03/30/2024, status post embolectomy- Patient with residual communication deficit and physical deficits Has been sent from [facility]hab, which anticipate she will be to return there once GI issues have been treated Diabetes mellitus- Placed on Accu-Cheks with NovoLog SSI Holding insulin glargine at this time due to decreased oral intake History of PE/atrial fibrillation- Records review indicates patient has been on apixaban and flecainide; will continue. Right hip pain Patient continues to have this. Trying to limit narcotics given that patient came in with stercoral colitis. Risk of bleeding with NSAIDs due to eliquis use. on tylenol, lidocaine patch baclofen. Admission and Anticipated Discharge Date Admission Date: April 25, 2024 Subjective 74 yo female re prots no new symptoms. Physical Exam Physical Exam: Laying in bed, not in any distress. abd is soft normal bowel sounds non tender Results & Data Results & Data Vital Signs (Past 12 Hours) Vital Signs Temp Pulse Resp BP Pulse Ox O2 Del Method 05/01/24 19:30 36.8 C 88 16 108/62 96 Room Air 05/01/24 15:34 36.4 C L 86 18 112/76 95 Room Air 05/01/24 11:18 36.6 C 83 18 120/80 97 Room Air PG Care Time/CCT Total # of Minutes Spent Total Time Spent with Patient: Total time spent is greater than 50% in coordination of care (as documented) at patient's floor/unit and/or counseling patient: Coding Level of Care Code 30974 SUB INP/OBS CARE 2/35MIN Diagnoses Stercoral colitis K52.89 Left acute arterial ischemic stroke, MCA (middle cerebral artery) I63.512 History of pulmonary embolism Z86.711 Atrial fibrillation I48.91
[2024-05-02] MEDS: GABAPENTIN 100 MG CAP PO ONE (01:03)
--- NOTE | 2024-05-02 16:45 | Hospitalist Progress Note ---
Date of Service May 02, 2024 Assessment & Plan (1) Stercoral colitis: (2) Left acute arterial ischemic stroke, MCA (middle cerebral artery): (3) History of pulmonary embolism: (4) Atrial fibrillation: Plan The patient is a 74-year-old female with a past medical history including breast cancer, uterine cancer, skin cancer, gout, vitamin D deficiency, type 2 diabetes mellitus, hypertension, hyperlipidemia, diabetic neuropathy, depression anxiety, atrial fibrillation. Patient had a significant acute ischemic left MCA territory infarct on 03/30/2024, for which she was seen at [facility] in [place]. She was discharged for 04/05/2024 to [facility]. She did have an embolectomy performed while at [place], and reportedly has not been able to communicate well since that time. Patient had evidently developed low back pain, and was sent to [facility] for [facility]. She had multiple imaging studies performed, which will need to be verified by our daytime radiology. The most ongoing concern is that of stercoral colitis, for which patient was referred to the hospital service after a 12-hour stay in the emergency department. #Stercoral colitis- # stercoral ulceration Large fecal ball noted on imaging. Most reliable finding that we can determine on CT scan as responsible for patient's low back pain Placed on vancomycin IV and Zosyn IV Now that bowel movements resumed: holding antibiotics. Tap water enema completed. appreciate GI. Pantoprazole 40 mg IV daily Acetaminophen 1 g IV every 8 hours as needed for mild pain or fever. Added one dose of celebrex for pain. stopped narcotics as this can worsened fecal retention. Zofran 4 mg IV every 6 hours as needed Continue miralax once a day but now PRN. now with loose stools, will monitor. transition to purewick cath once stools are more formed to limit source of possible ifection Informed case management, working on placement. Of note, multiple images performed assessing orthopedic function, of unclear r elevance at this time History of acute ischemic left MCA CVA on 03/30/2024, status post embolectomy- Patient with residual communication deficit and physical deficits Has been sent from [facility], which anticipate she will be to return there once GI issues have been treated Diabetes mellitus- Placed on Accu-Cheks with NovoLog SSI Holding insulin glargine at this time due to decreased oral intake History of PE/atrial fibrillation- Records review indicates patient has been on apixaban and flecainide; will continue. Right hip pain Patient continues to have this. Trying to limit narcotics given that patient came in with stercoral colitis. Risk of bleeding with NSAIDs due to eliquis use. on tylenol, lidocaine patch baclofen. Admission and Anticipated Discharge Date Admission Date: April 25, 2024 Subjective Patient appears comfortable. Patient with aphasia but can nod to yes and no questions. Physical Exam Physical Exam: Laying in bed, not in any distress. abd is soft normal bowel sounds non tender Results & Data Results & Data Vital Signs (Past 12 Hours) Vital Signs Temp Pulse Pulse Resp BP Pulse Ox O2 Del Method 05/02/24 16:12 36.6 C 67 18 113/70 96 Room Air 05/02/24 12:10 36.3 C L 53 L 18 109/67 98 Room Air 05/02/24 08:00 Room Air 05/02/24 07:44 36.3 C L 90 18 133/80 97 Room Air 05/02/24 06:43 85 PG Care Time/CCT Total # of Minutes Spent Total Time Spent with Patient: Total time spent is greater than 50% in coordination of care (as documented) at patient's floor/unit and/or counseling patient: Coding Level of Care Code 87592 SUB INP/OBS CARE 2/35MIN Diagnoses Stercoral colitis K52.89 Left acute arterial ischemic stroke, MCA (middle cerebral artery) I63.512 History of pulmonary embolism Z86.711 Atrial fibrillation I48.91
[2024-05-03] MEDS: DICLOFENAC SOD 1% GEL 100 GM TUBE EXT SCH (03:14)
[2024-05-03 06:09] LABS: Hemoglobin 11.8 g/dl (12.0-16.0); Mean Corpuscular Hemoglobin 32.1 pg (25.0-34.0); Mean Corpuscular Hgb Conc 33.7 g/dL (32.0-36.0); Mean Corpuscular Volume 95.1 fL (80.0-100.0); Mean Platelet Volume 10.7 fL (9.4-12.4); Platelet Count 247 K/uL (130-400); RDW Coefficient of Variation 14.8 % (11.5-14.5); Red Blood Count 3.68 M/uL (4.20-5.40)
[2024-05-03 06:21] LABS: BUN Creatinine Ratio 26.6 (10-20); C Reactive Protein 1.36 mg/dl (0-0.5); Calcium 7.9 mg/dl (8.6-10.3); Creatinine Clr Calc Pharmacy 95.6 ml/min; Potassium 3.7 mmol/L (3.5-5.1)
--- NOTE | 2024-05-03 12:38 | Hospitalist Progress Note ---
Date of Service May 03, 2024 Assessment & Plan (1) Stercoral colitis: Plan: Tap water enema completed. appreciate GI. Pantoprazole 40 mg IV daily Acetaminophen 1 g IV every 8 hours as needed for mild pain or fever. Added one dose of celebrex for pain. stopped narcotics as this can worsened fecal retention. Zofran 4 mg IV every 6 hours as needed Continue miralax once a day PRN. (2) Left acute arterial ischemic stroke, MCA (middle cerebral artery): Plan: acute ischemic left MCA CVA on 03/30/2024, status post embolectomy- Patient with residual communication deficit and physical deficits Has been sent from [facility] rehab, which anticipate she will be to return (3) History of pulmonary embolism: Plan: on apixaban (4) Atrial fibrillation: Plan: apixaban and flecainide; will continue. Plan Awaiting placement to rehab once bed available. Admission and Anticipated Discharge Date Admission Date: April 25, 2024 Subjective No events overnight. Pt resting comfortably in bed. Review of Systems Review of Systems: CONST: Negative for fever, body aches and chills. HENT: Negative for neck pain/stiffness, headache, congestion, sore throat, swelling. EYES: Negative for discharge/pain or vision changes. RESP: Negative for cough/hemoptysis and shortness of breath. CV: Negative chest pain, difficulty breathing, palpitations. ABD: Negative pain, nausea, vomiting. : Negative increase frequency, dysuria, blood in urine or stool. MUSC: Negative for muscle aches, edema. SKIN: Negative rash, lesions/sores. NEURO: Negative headache, dizziness, weakness. Physical Exam Physical Exam: GENERAL APPEARANCE NAD, activity normal for age, well developed/ well nourished, no cyanosis, pallor, or diaphoresis. EYES lids/conjunctiva normal. EARS/NOSE/THROAT Mucous membranes moist, nares normal, lips/teeth normal uvula midline without oral pharyngeal erythema, exudate or swelling TMs normal bilaterally. No lymphangitis/lymphedema. HEAD/NECK normocephalic atraumatic, no facial trauma, neck is supple. RESPIRATORY respiratory effort normal, speaks in full sentences, no tripod position, no accessory muscle use. Lungs clear to auscultation without rhonchi, wheezes, rales CARDIAC Regular rate and rhythm, no edema. ABDOMINAL Soft, ND/NT. No evidence of fluid wave. No pulsatile masses on exam, rebound tenderness, Elias sign or pain over Mcburney's point. MUSCLES/EXTREMITIES No abnormal range of motion, no swelling. SKIN Warm, pink and dry. No rashes, dermatoses, petechiae or lesions. NEUROLOGICAL Speech is clear and appropriate. Normal level of consciousness. Gait and coordination are normal. 5/5 strength in all extremities. PSYCH Normal mood and affect. Judgement/competence is appropriate Results & Data Results & Data Vital Signs (Past 12 Hours) Vital Signs Temp Pulse Pulse Resp BP Pulse Ox O2 Del Method 05/03/24 11:30 36.6 C 49 L 16 109/69 97 Room Air 05/03/24 09:02 Room Air 05/03/24 07:49 56 L 05/03/24 07:00 36.8 C 58 L 18 121/75 98 Room Air 05/03/24 03:49 36.8 C 53 L 19 106/66 95 Room Air 05/03/24 00:55 36.8 C 58 L 19 111/69 97 Room Air PG Care Time/CCT Total # of Minutes Spent Total Time Spent with Patient: Total time spent is greater than 50% in coordination of care (as documented) at patient's floor/unit and/or counseling patient: Coding Level of Care Code 53656 SUB INP/OBS CARE 2/35MIN Diagnoses Stercoral colitis K52.89 Left acute arterial ischemic stroke, MCA (middle cerebral artery) I63.512 History of pulmonary embolism Z86.711 Atrial fibrillation I48.91
[2024-05-03] MEDS: ACETAMINOPHEN 1,000 MG/100 ML VIAL IV PRN (17:29)
[2024-05-03] MEDS: ACETAMINOPHEN 500 MG TAB PO SCH (21:28)
--- NOTE | 2024-05-03 21:29 | Communication Note ---
Date of Service: May 03, 2024 RN contacted me to notify patient is experiencing pain in her right hip (hx of fracture). Due to stercoral colitis at time of admission, avoiding narcotic medications that may precipitate constipation. Patient currently on scheduled Tylenol, Baclofen, Lidocaine patches, and Voltaren gel. After discussion, patient also referring having some trouble sleeping. Will order Gabapentin for management of pain and with double effect of helping with sleep. If pain persists, could also consider one time dose of Celecoxib. Resident Activity Tracking Resident Involvement: Resident Care Provided Care Provided: Adult [facility]
[2024-05-03] MEDS: GABAPENTIN 250 MG/5 ML 470 ML BTL PO ONE (21:54)
[2024-05-04] MEDS: MICONAZOLE NITRATE POWDER 85 GM EXT PRN (09:25)
--- NOTE | 2024-05-04 11:50 | Hospitalist Progress Note ---
Date of Service May 04, 2024 Assessment & Plan (1) Stercoral colitis: Plan: Tap water enema completed. appreciate GI. Pantoprazole 40 mg IV daily Acetaminophen 1 g IV every 8 hours as needed for mild pain or fever. Added one dose of celebrex for pain. stopped narcotics as this can worsened fecal retention. Zofran 4 mg IV every 6 hours as needed Continue miralax once a day PRN. (2) Left acute arterial ischemic stroke, MCA (middle cerebral artery): Plan: acute ischemic left MCA CVA on 03/30/2024, status post embolectomy- Patient with residual communication deficit and physical deficits Has been sent from [facility] rehab, which anticipate she will be to return (3) History of pulmonary embolism: Plan: on apixaban (4) Atrial fibrillation: Plan: apixaban and flecainide; will continue. Plan Awaiting placement to rehab once bed available. Admission and Anticipated Discharge Date Admission Date: April 25, 2024 Subjective Pt had complaints of hip pain last night. She is currently resting comfortably in bed with daughter at bedside. Review of Systems Review of Systems: CONST: Negative for fever, body aches and chills. HENT: Negative for neck pain/stiffness, headache, congestion, sore throat, swelling. EYES: Negative for discharge/pain or vision changes. RESP: Negative for cough/hemoptysis and shortness of breath. CV: Negative chest pain, difficulty breathing, palpitations. ABD: Negative pain, nausea, vomiting. : Negative increase frequency, dysuria, blood in urine or stool. MUSC: Negative for muscle aches, edema. SKIN: Negative rash, lesions/sores. NEURO: Negative headache, dizziness, weakness. Physical Exam Physical Exam: GENERAL APPEARANCE NAD, activity normal for age, well developed/ well nourished, no cyanosis, pallor, or diaphoresis. EYES lids/conjunctiva normal. EARS/NOSE/THROAT Mucous membranes moist, nares normal, lips/teeth normal uvula midline without oral pharyngeal erythema, exudate or swelling TMs normal bilaterally. No lymphangitis/lymphedema. HEAD/NECK normocephalic atraumatic, no facial trauma, neck is supple. RESPIRATORY respiratory effort normal, speaks in full sentences, no tripod position, no accessory muscle use. Lungs clear to auscultation without rhonchi, wheezes, rales CARDIAC Regular rate and rhythm, no edema. ABDOMINAL Soft, ND/NT. No evidence of fluid wave. No pulsatile masses on exam, rebound tenderness, Elias sign or pain over Mcburney's point. MUSCLES/EXTREMITIES No abnormal range of motion, no swelling. SKIN Warm, pink and dry. No rashes, dermatoses, petechiae or lesions. NEUROLOGICAL Speech is clear and appropriate. Normal level of consciousness. Gait and coordination are normal. 5/5 strength in all extremities. PSYCH Normal mood and affect. Judgement/competence is appropriate Results & Data Results & Data Vital Signs (Past 12 Hours) Vital Signs Temp Pulse Pulse Resp BP Pulse Ox O2 Del Method 05/04/24 11:20 36.4 C L 48 L 20 115/70 97 Room Air 05/04/24 10:58 54 L 05/04/24 10:49 Room Air 05/04/24 07:33 36.5 C 54 L 20 114/68 97 Room Air 05/04/24 03:34 36.8 C 61 18 121/81 95 Room Air 05/03/24 23:58 59 L PG Care Time/CCT Total # of Minutes Spent Total Time Spent with Patient: Total time spent is greater than 50% in coordination of care (as documented) at patient's floor/unit and/or counseling patient: Coding Level of Care Code 73891 SUB INP/OBS CARE 2/35MIN Diagnoses Stercoral colitis K52.89 Left acute arterial ischemic stroke, MCA (middle cerebral artery) I63.512 History of pulmonary embolism Z86.711 Atrial fibrillation I48.91
[2024-05-04] MEDS: GABAPENTIN 100 MG CAP PO ONE (22:17)
[2024-05-05] MEDS: POLYETHYLENE (MIRALAX) 17 GM PACK PO PRN (08:51)
[2024-05-05] MEDS: DOCUSATE SODIUM 100 MG CAP PO PRN (08:52)
--- NOTE | 2024-05-05 11:11 | Hospitalist Progress Note ---
Date of Service May 05, 2024 Assessment & Plan (1) Stercoral colitis: Plan: Tap water enema completed. appreciate GI. Pantoprazole 40 mg IV daily Acetaminophen 1 g IV every 8 hours as needed for mild pain or fever. Added one dose of celebrex for pain. stopped narcotics as this can worsened fecal retention. Zofran 4 mg IV every 6 hours as needed Continue miralax once a day PRN. (2) Left acute arterial ischemic stroke, MCA (middle cerebral artery): Plan: acute ischemic left MCA CVA on 03/30/2024, status post embolectomy- Patient with residual communication deficit and physical deficits Has been sent from [facility]hab, which anticipate she will be to return (3) History of pulmonary embolism: Plan: on apixaban (4) Atrial fibrillation: Plan: apixaban and flecainide; will continue. Plan Awaiting placement to rehab once bed available. Admission and Anticipated Discharge Date Admission Date: April 25, 2024 Subjective Pt had complaints of hip pain after being moved into chair today. Review of Systems Review of Systems: CONST: Negative for fever, body aches and chills. HENT: Negative for neck pain/stiffness, headache, congestion, sore throat, swelling. EYES: Negative for discharge/pain or vision changes. RESP: Negative for cough/hemoptysis and shortness of breath. CV: Negative chest pain, difficulty breathing, palpitations. ABD: Negative pain, nausea, vomiting. : Negative increase frequency, dysuria, blood in urine or stool. MUSC: Negative for muscle aches, edema. SKIN: Negative rash, lesions/sores. NEURO: Negative headache, dizziness, weakness. Physical Exam Physical Exam: GENERAL APPEARANCE NAD, activity normal for age, well developed/ well nourished, no cyanosis, pallor, or diaphoresis. EYES lids/conjunctiva normal. EARS/NOSE/THROAT Mucous membranes moist, nares normal, lips/teeth normal uvula midline without oral pharyngeal erythema, exudate or swelling TMs normal bilaterally. No lymphangitis/lymphedema. HEAD/NECK normocephalic atraumatic, no facial trauma, neck is supple. RESPIRATORY respiratory effort normal, speaks in full sentences, no tripod position, no accessory muscle use. Lungs clear to auscultation without rhonchi, wheezes, rales CARDIAC Regular rate and rhythm, no edema. ABDOMINAL Soft, ND/NT. No evidence of fluid wave. No pulsatile masses on exam, rebound tenderness, Elias sign or pain over Mcburney's point. MUSCLES/EXTREMITIES No abnormal range of motion, no swelling. SKIN Warm, pink and dry. No rashes, dermatoses, petechiae or lesions. NEUROLOGICAL Speech is clear and appropriate. Normal level of consciousness. Gait and coordination are normal. 5/5 strength in all extremities. PSYCH Normal mood and affect. Judgement/competence is appropriate Results & Data Results & Data Vital Signs (Past 12 Hours) Vital Signs Temp Pulse Pulse Resp BP Pulse Ox O2 Del Method 05/05/24 08:11 36.6 C 54 L 18 127/64 98 Room Air 05/05/24 07:33 46 L 05/05/24 03:54 36.4 C L 50 L 16 122/73 94 Room Air PG Care Time/CCT Total # of Minutes Spent Total Time Spent with Patient: Total time spent is greater than 50% in coordination of care (as documented) at patient's floor/unit and/or counseling patient: Coding Level of Care Code 93791 SUB INP/OBS CARE 2/35MIN Diagnoses Stercoral colitis K52.89 Left acute arterial ischemic stroke, MCA (middle cerebral artery) I63.512 History of pulmonary embolism Z86.711 Atrial fibrillation I48.91
[2024-05-05] MEDS: oxyCODONE/ACETAMINOPHEN 5mg/325mg TAB PO STA (11:46)
[2024-05-05] MEDS: GABAPENTIN 100 MG CAP PO PRN (23:41)
--- NOTE | 2024-05-06 12:01 | Hospitalist Progress Note ---
Date of Service May 06, 2024 Assessment & Plan (1) Stercoral colitis: Plan: Tap water enema completed. appreciate GI. Pantoprazole 40 mg IV daily Acetaminophen 1 g IV every 8 hours as needed for mild pain or fever. Added one dose of celebrex for pain. stopped narcotics as this can worsened fecal retention. Zofran 4 mg IV every 6 hours as needed Continue miralax once a day PRN. (2) Left acute arterial ischemic stroke, MCA (middle cerebral artery): Plan: acute ischemic left MCA CVA on 03/30/2024, status post embolectomy- Patient with residual communication deficit and physical deficits Has been sent from [facility] rehab (3) History of pulmonary embolism: Plan: on apixaban (4) Atrial fibrillation: Plan: apixaban and flecainide; will continue. Plan Awaiting placement to rehab once bed available. Pt's family is appealing denial by [facility]. Admission and Anticipated Discharge Date Admission Date: April 25, 2024 Subjective No events overnight, pt resting in bed. Review of Systems Review of Systems: CONST: Negative for fever, body aches and chills. HENT: Negative for neck pain/stiffness, headache, congestion, sore throat, swelling. EYES: Negative for discharge/pain or vision changes. RESP: Negative for cough/hemoptysis and shortness of breath. CV: Negative chest pain, difficulty breathing, palpitations. ABD: Negative pain, nausea, vomiting. : Negative increase frequency, dysuria, blood in urine or stool. MUSC: Negative for muscle aches, edema. SKIN: Negative rash, lesions/sores. NEURO: Negative headache, dizziness, weakness. Physical Exam Physical Exam: GENERAL APPEARANCE NAD, activity normal for age, well developed/ well nourished, no cyanosis, pallor, or diaphoresis. EYES lids/conjunctiva normal. EARS/NOSE/THROAT Mucous membranes moist, nares normal, lips/teeth normal uvula midline without oral pharyngeal erythema, exudate or swelling TMs normal bilaterally. No lymphangitis/lymphedema. HEAD/NECK normocephalic atraumatic, no facial trauma, neck is supple. RESPIRATORY respiratory effort normal, speaks in full sentences, no tripod position, no accessory muscle use. Lungs clear to auscultation without rhonchi, wheezes, rales CARDIAC Regular rate and rhythm, no edema. ABDOMINAL Soft, ND/NT. No evidence of fluid wave. No pulsatile masses on exam, rebound tenderness, Elias sign or pain over Mcburney's point. MUSCLES/EXTREMITIES No abnormal range of motion, no swelling. SKIN Warm, pink and dry. No rashes, dermatoses, petechiae or lesions. NEUROLOGICAL Speech is clear and appropriate. Normal level of consciousness. Gait and coordination are normal. 5/5 strength in all extremities. PSYCH Normal mood and affect. Judgement/competence is appropriate Results & Data Results & Data Vital Signs (Past 12 Hours) Vital Signs Temp Pulse Pulse Resp BP Pulse Ox O2 Del Method 05/06/24 11:21 36.4 C L 56 L 19 118/70 96 Room Air 05/06/24 10:34 Room Air 05/06/24 08:34 36.4 C L 61 18 131/71 97 Room Air 05/06/24 07:15 54 L 05/06/24 03:05 36.6 C 60 18 126/71 95 Room Air PG Care Time/CCT Total # of Minutes Spent Total Time Spent with Patient: Total time spent is greater than 50% in coordination of care (as documented) at patient's floor/unit and/or counseling patient: Coding Level of Care Code 32775 SUB INP/OBS CARE 235MIN Diagnoses Stercoral colitis K52.89 Left acute arterial ischemic stroke, MCA (middle cerebral artery) I63.512 History of pulmonary embolism Z86.711 Atrial fibrillation I48.91
[2024-05-06] MEDS: GABAPENTIN 100 MG CAP PO SCH (21:58)
--- NOTE | 2024-05-07 11:33 | Hospitalist Progress Note ---
Date of Service May 07, 2024 Assessment & Plan (1) Stercoral colitis: Plan: Tap water enema completed. appreciate GI. Pantoprazole 40 mg IV daily Acetaminophen 1 g IV every 8 hours as needed for mild pain or fever. Added one dose of celebrex for pain. stopped narcotics as this can worsened fecal retention. Zofran 4 mg IV every 6 hours as needed Continue miralax once a day PRN. (2) Left acute arterial ischemic stroke, MCA (middle cerebral artery): Plan: acute ischemic left MCA CVA on 03/30/2024, status post embolectomy- Patient with residual communication deficit and physical deficits Has been sent from [facility] rehab (3) History of pulmonary embolism: Plan: on apixaban (4) Atrial fibrillation: Plan: apixaban and flecainide; will continue. Plan Awaiting placement to rehab once bed available. Pt's family is appealing denial by [facility]. Admission and Anticipated Discharge Date Admission Date: April 25, 2024 Subjective No events overnight, pt resting in bed. Review of Systems Review of Systems: CONST: Negative for fever, body aches and chills. HENT: Negative for neck pain/stiffness, headache, congestion, sore throat, swelling. EYES: Negative for discharge/pain or vision changes. RESP: Negative for cough/hemoptysis and shortness of breath. CV: Negative chest pain, difficulty breathing, palpitations. ABD: Negative pain, nausea, vomiting. : Negative increase frequency, dysuria, blood in urine or stool. MUSC: Negative for muscle aches, edema. SKIN: Negative rash, lesions/sores. NEURO: Negative headache, dizziness, weakness. Physical Exam Physical Exam: GENERAL APPEARANCE NAD, activity normal for age, well developed/ well nourished, no cyanosis, pallor, or diaphoresis. EYES lids/conjunctiva normal. EARS/NOSE/THROAT Mucous membranes moist, nares normal, lips/teeth normal uvula midline without oral pharyngeal erythema, exudate or swelling TMs normal bilaterally. No lymphangitis/lymphedema. HEAD/NECK normocephalic atraumatic, no facial trauma, neck is supple. RESPIRATORY respiratory effort normal, speaks in full sentences, no tripod position, no accessory muscle use. Lungs clear to auscultation without rhonchi, wheezes, rales CARDIAC Regular rate and rhythm, no edema. ABDOMINAL Soft, ND/NT. No evidence of fluid wave. No pulsatile masses on exam, rebound tenderness, Elias sign or pain over Mcburney's point. MUSCLES/EXTREMITIES No abnormal range of motion, no swelling. SKIN Warm, pink and dry. No rashes, dermatoses, petechiae or lesions. NEUROLOGICAL Speech is clear and appropriate. Normal level of consciousness. Gait and coordination are normal. 5/5 strength in all extremities. PSYCH Normal mood and affect. Judgement/competence is appropriate Results & Data Results & Data Vital Signs (Past 12 Hours) Vital Signs Temp Pulse Pulse Resp BP Pulse Ox O2 Del Method 05/07/24 10:55 36.4 C L 51 L 19 122/67 96 Nasal Cannula 05/07/24 08:30 Room Air 05/07/24 07:41 36.6 C 52 L 17 132/66 94 Room Air 05/07/24 05:35 56 L 05/07/24 03:54 36.4 C L 55 L 20 119/59 L 94 Room Air O2 Flow Rate 05/07/24 10:55 2 05/07/24 08:30 05/07/24 07:41 05/07/24 05:35 05/07/24 03:54 PG Care Time/CCT Total # of Minutes Spent Total Time Spent with Patient: Total time spent is greater than 50% in coordination of care (as documented) at patient's floor/unit and/or counseling patient: Coding Level of Care Code 95682 SUB INP/OBS CARE 2/35MIN Diagnoses Stercoral colitis K52.89 Left acute arterial ischemic stroke, MCA (middle cerebral artery) I63.512 History of pulmonary embolism Z86.711 Atrial fibrillation I48.91
--- NOTE | 2024-05-08 10:49 | Hospitalist Progress Note ---
Date of Service May 08, 2024 Assessment & Plan (1) Stercoral colitis: Plan: Tap water enema completed. appreciate GI. Pantoprazole 40 mg IV daily Acetaminophen 1 g IV every 8 hours as needed for mild pain or fever. Added one dose of celebrex for pain. stopped narcotics as this can worsened fecal retention. Zofran 4 mg IV every 6 hours as needed Continue miralax once a day PRN. (2) Left acute arterial ischemic stroke, MCA (middle cerebral artery): Plan: acute ischemic left MCA CVA on 03/30/2024, status post embolectomy- Patient with residual communication deficit and physical deficits Has been sent from [facility] rehab (3) History of pulmonary embolism: Plan: on apixaban (4) Atrial fibrillation: Plan: apixaban and flecainide; will continue. Plan Awaiting placement to rehab once bed available. Pt's family is appealing denial by [facility]. Admission and Anticipated Discharge Date Admission Date: April 25, 2024 Subjective No events overnight, pt resting in bed. Review of Systems Review of Systems: CONST: Negative for fever, body aches and chills. HENT: Negative for neck pain/stiffness, headache, congestion, sore throat, swelling. EYES: Negative for discharge/pain or vision changes. RESP: Negative for cough/hemoptysis and shortness of breath. CV: Negative chest pain, difficulty breathing, palpitations. ABD: Negative pain, nausea, vomiting. : Negative increase frequency, dysuria, blood in urine or stool. MUSC: Negative for muscle aches, edema. SKIN: Negative rash, lesions/sores. NEURO: Negative headache, dizziness, weakness. Physical Exam Physical Exam: GENERAL APPEARANCE NAD, activity normal for age, well developed/ well nourished, no cyanosis, pallor, or diaphoresis. EYES lids/conjunctiva normal. EARS/NOSE/THROAT Mucous membranes moist, nares normal, lips/teeth normal uvula midline without oral pharyngeal erythema, exudate or swelling TMs normal bilaterally. No lymphangitis/lymphedema. HEAD/NECK normocephalic atraumatic, no facial trauma, neck is supple. RESPIRATORY respiratory effort normal, speaks in full sentences, no tripod position, no accessory muscle use. Lungs clear to auscultation without rhonchi, wheezes, rales CARDIAC Regular rate and rhythm, no edema. ABDOMINAL Soft, ND/NT. No evidence of fluid wave. No pulsatile masses on exam, rebound tenderness, Elias sign or pain over Mcburney's point. MUSCLES/EXTREMITIES No abnormal range of motion, no swelling. SKIN Warm, pink and dry. No rashes, dermatoses, petechiae or lesions. NEUROLOGICAL Speech is clear and appropriate. Normal level of consciousness. Gait and coordination are normal. 5/5 strength in all extremities. PSYCH Normal mood and affect. Judgement/competence is appropriate Results & Data Results & Data Vital Signs (Past 12 Hours) Vital Signs Temp Pulse Pulse Resp BP Pulse Ox O2 Del Method 05/08/24 08:35 Room Air 05/08/24 07:20 55 L 05/08/24 07:06 36.6 C 59 L 20 115/75 97 Room Air 05/08/24 03:47 36.7 C 73 22 144/75 H 94 Room Air 05/07/24 23:38 53 L 05/07/24 23:16 36.8 C 77 22 152/82 H 93 Room Air PG Care Time/CCT Total # of Minutes Spent Total Time Spent with Patient: Total time spent is greater than 50% in coordination of care (as documented) at patient's floor/unit and/or counseling patient: Coding Level of Care Code 62697 SUB INP/OBS CARE 2/35MIN Diagnoses Stercoral colitis K52.89 Left acute arterial ischemic stroke, MCA (middle cerebral artery) I63.512 History of pulmonary embolism Z86.711 Atrial fibrillation I48.91
--- NOTE | 2024-05-09 12:22 | Hospitalist Progress Note ---
Date of Service May 09, 2024 Assessment & Plan (1) Stercoral colitis: Plan: Tap water enema completed. appreciate GI consult. Pantoprazole 40 mg IV daily Acetaminophen 1 g IV every 8 hours as needed for mild pain or fever. stopped narcotics as this can worsened fecal retention. Zofran 4 mg IV every 6 hours as needed Continue miralax once a day PRN. (2) Left acute arterial ischemic stroke, MCA (middle cerebral artery): Plan: acute ischemic left MCA CVA on 03/30/2024, status post embolectomy- Patient with residual communication deficit and physical deficits Has been sent from [facility] (3) History of pulmonary embolism: Plan: on apixaban (4) Atrial fibrillation: Plan: apixaban and flecainide Plan The patient is a 74-year-old female with a past medical history including breast cancer, uterine cancer, skin cancer, gout, vitamin D deficiency, type 2 diabetes mellitus, hypertension, hyperlipidemia, diabetic neuropathy, depression anxiety, atrial fibrillation. Patient had a significant acute ischemic left MCA territory infarct on 03/30/2024, for which she was seen at [facility] in [place]. She was discharged on 04/05/2024 to [facility]. She did have an embolectomy performed while at [place]. Patient had evidently developed low back pain, and was sent to [facility] for assessment. She was found to have stercoral colitis and treated during her stay. Now she is awaiting placement and family is appealing denial to [facility]. Awaiting placement to rehab once bed available. Pt's family is appealing denial by [facility]. Admission and Anticipated Discharge Date Admission Date: April 25, 2024 Subjective No events overnight, pt resting in bed. Review of Systems Review of Systems: CONST: Negative for fever, body aches and chills. HENT: Negative for neck pain/stiffness, headache, congestion, sore throat, swelling. EYES: Negative for discharge/pain or vision changes. RESP: Negative for cough/hemoptysis and shortness of breath. CV: Negative chest pain, difficulty breathing, palpitations. ABD: Negative pain, nausea, vomiting. : Negative increase frequency, dysuria, blood in urine or stool. MUSC: Negative for muscle aches, edema. SKIN: Negative rash, lesions/sores. NEURO: Negative headache, dizziness, weakness. Physical Exam Physical Exam: GENERAL APPEARANCE NAD, activity normal for age, well developed/ well nourished, no cyanosis, pallor, or diaphoresis. EYES lids/conjunctiva normal. EARS/NOSE/THROAT Mucous membranes moist, nares normal, lips/teeth normal uvula midline without oral pharyngeal erythema, exudate or swelling TMs normal bilaterally. No lymphangitis/lymphedema. HEAD/NECK normocephalic atraumatic, no facial trauma, neck is supple. RESPIRATORY respiratory effort normal, speaks in full sentences, no tripod position, no accessory muscle use. Lungs clear to auscultation without rhonchi, wheezes, rales CARDIAC Regular rate and rhythm, no edema. ABDOMINAL Soft, ND/NT. No evidence of fluid wave. No pulsatile masses on exam, rebound tenderness, Elias sign or pain over Mcburney's point. MUSCLES/EXTREMITIES No abnormal range of motion, no swelling. SKIN Warm, pink and dry. No rashes, dermatoses, petechiae or lesions. NEUROLOGICAL Speech is clear and appropriate. Normal level of consciousness. Gait and coordination are normal. 5/5 strength in all extremities. PSYCH Normal mood and affect. Judgement/competence is appropriate Results & Data Results & Data Vital Signs (Past 12 Hours) Vital Signs Temp Pulse Pulse Resp BP Pulse Ox O2 Del Method 05/09/24 11:58 36.7 C 50 L 19 131/80 94 Room Air 05/09/24 09:00 36.5 C 51 L 20 127/74 95 Room Air 05/09/24 07:15 Room Air 05/09/24 02:59 63 05/09/24 02:39 36.6 C 62 16 123/76 97 Room Air PG Care Time/CCT Total # of Minutes Spent Total Time Spent with Patient: Total time spent is greater than 50% in coordination of care (as documented) at patient's floor/unit and/or counseling patient: Coding Level of Care Code 06011 SUB INP/OBS CARE 2/35MIN Diagnoses Stercoral colitis K52.89 Left acute arterial ischemic stroke, MCA (middle cerebral artery) I63.512 History of pulmonary embolism Z86.711 Atrial fibrillation I48.91
--- NOTE | 2024-05-10 20:45 | Hospitalist Progress Note ---
Date of Service May 10, 2024 Assessment & Plan (1) Stercoral colitis: Plan: Tap water enema completed. appreciate GI consult. Pantoprazole 40 mg IV daily Acetaminophen 1 g IV every 8 hours as needed for mild pain or fever. stopped narcotics as this can worsened fecal retention. Zofran 4 mg IV every 6 hours as needed Continue miralax once a day PRN. revieweec labs, will downgrade to medical. discussed with case management (2) Left acute arterial ischemic stroke, MCA (middle cerebral artery): Plan: acute ischemic left MCA CVA on 03/30/2024, status post embolectomy- Patient with residual communication deficit and physical deficits Has been sent from [facility] (3) History of pulmonary embolism: Plan: on apixaban (4) Atrial fibrillation: Plan: apixaban and flecainide Plan The patient is a 74-year-old female with a past medical history including breast cancer, uterine cancer, skin cancer, gout, vitamin D deficiency, type 2 diabetes mellitus, hypertension, hyperlipidemia, diabetic neuropathy, depression anxiety, atrial fibrillation. Patient had a significant acute ischemic left MCA territory infarct on 03/30/2024, for which she was seen at [facility] in [place]. She was discharged on 04/05/2024 to [facility]. She did have an embolectomy performed while at [place]. Patient had evidently developed low back pain, and was sent [facility] for assessment. She was found to have stercoral colitis and treated during her stay. Now she is awaiting placement and family is appealing denial to [facility]. Awaiting placement to rehab once bed available. Pt's family is appealing denial by [facility]. Admission and Anticipated Discharge Date Admission Date: April 25, 2024 Subjective Patient reports no new complaints. Physical Exam Physical Exam: Laying in bed, not in any distress. abd is soft normal bowel sounds non tender Results & Data Results & Data Vital Signs (Past 12 Hours) Vital Signs Temp Pulse Pulse Resp BP Pulse Ox O2 Del Method 05/10/24 16:25 36.6 C 50 L 20 127/73 96 Room Air 05/10/24 14:35 53 L 05/10/24 12:28 36.5 C 50 L 17 120/66 97 Room Air 05/10/24 10:02 60 107/62 PG Care Time/CCT Total # of Minutes Spent Total Time Spent with Patient: Total time spent is greater than 50% in coordination of care (as documented) at patient's floor/unit and/or counseling patient: Coding Level of Care Code 78471 SUB INP/OBS CARE 50MIN Diagnoses Stercoral colitis K52.89 Left acute arterial ischemic stroke, MCA (middle cerebral artery) I63.512 History of pulmonary embolism Z86.711 Atrial fibrillation I48.91
--- NOTE | 2024-05-11 22:21 | Hospitalist Progress Note ---
Date of Service May 11, 2024 Assessment & Plan (1) Stercoral colitis: Plan: Tap water enema completed. appreciate GI consult. Pantoprazole 40 mg IV daily Acetaminophen 1 g IV every 8 hours as needed for mild pain or fever. stopped narcotics as this can worsened fecal retention. Zofran 4 mg IV every 6 hours as needed Continue miralax once a day PRN. reviewed labs, vitals discussed with case management (2) Left acute arterial ischemic stroke, MCA (middle cerebral artery): Plan: acute ischemic left MCA CVA on 03/30/2024, status post embolectomy- Patient with residual communication deficit and physical deficits Has been sent from [facility] (3) History of pulmonary embolism: Plan: on apixaban (4) Atrial fibrillation: Plan: apixaban and flecainide Plan The patient is a 74-year-old female with a past medical history including breast cancer, uterine cancer, skin cancer, gout, vitamin D deficiency, type 2 diabetes mellitus, hypertension, hyperlipidemia, diabetic neuropathy, depression anxiety, atrial fibrillation. Patient had a significant acute ischemic left MCA territory infarct on 03/30/2024, for which she was seen at [facility] in [place]. She was discharged on 04/05/2024 to [facility]. She did have an embolectomy performed while at [place]. Patient had evidently developed low back pain, and was sent [facility] for assessment. She was found to have stercoral colitis and treated during her stay. Now she is awaiting placement and family is appealing denial to . Awaiting placement to rehab once bed available. Pt's family is appealing denial by . Admission and Anticipated Discharge Date Admission Date: April 25, 2024 Subjective Patient reports no new symptoms. Physical Exam Physical Exam: Laying in bed, not in any distress. abd is soft normal bowel sounds non tender Results & Data Results & Data Vital Signs (Past 12 Hours) Vital Signs Temp Pulse Resp BP Pulse Ox O2 Del Method 05/11/24 20:52 60 131/73 05/11/24 20:24 36.9 C 57 L 14 114/67 96 Room Air 05/11/24 15:52 36.4 C L 81 18 101/58 L 94 Room Air PG Care Time/CCT Total # of Minutes Spent Total Time Spent with Patient: Total time spent is greater than 50% in coordination of care (as documented) at patient's floor/unit and/or counseling patient: Coding Level of Care Code 99470 SUB INP/OBS CARE MIN Diagnoses Stercoral colitis K52.89 Left acute arterial ischemic stroke, MCA (middle cerebral artery) I63.512 History of pulmonary embolism Z86.711 Atrial fibrillation I48.91
[2024-05-12] MEDS: SENNOSIDES 8.8 MG/5 ML UDC PO PRN (14:47)
[2024-05-12] MEDS: SIMETHICONE 80 MG CHEW PO ONE (17:58)
--- NOTE | 2024-05-12 22:18 | Hospitalist Progress Note ---
Date of Service May 12, 2024 Assessment & Plan (1) Stercoral colitis: Plan: Tap water enema completed. appreciate GI consult. Pantoprazole 40 mg IV daily Acetaminophen 1 g IV every 8 hours as needed for mild pain or fever. stopped narcotics as this can worsened fecal retention. Zofran 4 mg IV every 6 hours as needed Continue miralax once a day will sewitch to scheduled due to constipation. reviewed labs, vitals discussed with case management (2) Left acute arterial ischemic stroke, MCA (middle cerebral artery): Plan: acute ischemic left MCA CVA on 03/30/2024, status post embolectomy- Patient with residual communication deficit and physical deficits Has been sent from [facility] (3) History of pulmonary embolism: Plan: on apixaban (4) Atrial fibrillation: Plan: apixaban and flecainide Plan The patient is a 74-year-old female with a past medical history including breast cancer, uterine cancer, skin cancer, gout, vitamin D deficiency, type 2 diabetes mellitus, hypertension, hyperlipidemia, diabetic neuropathy, depression anxiety, atrial fibrillation. Patient had a significant acute ischemic left MCA territory infarct on 03/30/2024, for which she was seen at [facility] in [place]. She was discharged on 04/05/2024 to [facility]. She did have an embolectomy performed while at [place]. Patient had evidently developed low back pain, and was sent [facility] for assessment. She was found to have stercoral colitis and treated during her stay. Now she is awaiting placement and family is appealing denial to [facility]. Awaiting placement to rehab once bed available. Pt's family is appealing denial by [facility]. Admission and Anticipated Discharge Date Admission Date: April 25, 2024 Subjective Pstient with no new complaints. Physical Exam Physical Exam: Laying in bed, not in any distress. abd is soft normal bowel sounds non tender Results & Data Results & Data Vital Signs (Past 12 Hours) Vital Signs Temp Pulse Resp BP Pulse Ox O2 Del Method 05/12/24 20:00 36.7 C 60 14 108/57 L 93 Room Air 05/12/24 14:13 36.6 C 61 16 116/60 94 Room Air 05/12/24 10:20 Room Air PG Care Time/CCT Total # of Minutes Spent Total Time Spent with Patient: Total time spent is greater than 50% in coordination of care (as documented) at patient's floor/unit and/or counseling patient: Coding Level of Care Code 94708 SUB INP/OBS CARE MIN Diagnoses Stercoral colitis K52.89 Left acute arterial ischemic stroke, MCA (middle cerebral artery) I63.512 History of pulmonary embolism Z86.711 Atrial fibrillation I48.91
[2024-05-13 07:24] VITALS: BP 141/65; PULSE 56; RESP 18; TEMP 98.2; O2SAT 94
[2024-05-13] MEDS ORDERED: POLYETHYLENE (MIRALAX) 17 GM PACK PO SCH (09:00)
[2024-05-13] MEDS: POLYETHYLENE (MIRALAX) 17 GM PACK PO SCH (09:04)
--- NOTE | 2024-05-13 09:55 | XRay Report ---
XR KUB/Abdomen 1 view CLINICAL HISTORY: constipation TECHNIQUE: 1 view of the abdomen was obtained. Comparison: Comparison is made to abdomen radiograph 04/28/2024 FINDINGS: Lung bases are unremarkable. Degenerative changes are seen in the visualized skeleton. Levoscoliosis is noted. Small stool burden is seen. IMPRESSION: Small stool burden without evidence of fecal impaction. ACT 112: Negative or not required by law. Electronically signed by: Van Salinas M.D. 05/13/2024 9:53 AM
== END 2024-05-13 12:15 | DRG 392 ==
LOC: ED 13:46 → SUATTDRO 04-25 02:08 → EDINP 04-25 02:08 → 4W 04-25 03:12 → 3N 05-10 22:18

== ENCOUNTER 2024-11-03 07:26 | Inpatient (IN) ==
--- NOTE | 2024-11-03 07:49 | Emergency Department Note ---
Impression & Plan Acute hypoxemic respiratory failure, Pneumonia, Hypomagnesemia, Leukocytosis, Acute UTI (urinary tract infection) ED Provider Note HISTORY OF PRESENT ILLNESS: Patient is a 74-year-old female presenting with hypoxia. Patient presents from the page hospital side of [facility]. She reportedly has been having progressively worsening illness over the last few days. She was diagnosed with pneumonia 2 days ago per report secondary to aspiration. She is having increasing nasal cannula oxygenation needs. She went from 4 L up to 5 L nasal cannula over the last 24 hours and her saturations are only about 92%. She has a chronic Barry in place. She had a fever of 102 last night and was given Tylenol at 2 AM. Unknown if the patient is on antibiotics at this time, as EMS and [facility] did not give that in report. Patient reports she has been feeling poorly for the last 2 weeks. She denies feeling significantly short of breath or having any chest pain. She is complaining of pain around her Barry catheter insertion site. Denies any abdominal pain, nausea or vomiting. Per documentation Crystal, the patient is full code. ROS: as above PHYSICAL EXAM: Constitutional: Patient appears in no acute distress. HENT: Head: Normocephalic and atraumatic. Eyes: EOMI, PERRL Mouth/Throat: Mucous membranes moist. Neck: Trachea midline. Neck supple. Cardiovascular: RRR, No murmurs, rubs or gallops. Intact distal pulses. Pulmonary/Chest: No respiratory distress. Patient has coarse breath sounds bilaterally. Hypoxic on room air at 87%. She was placed on 6 L nasal cannula with saturations only improving to 89%. She was then converted to 10 L oxy mask with improvement in saturations. Abdominal: Abdomen soft, no tenderness, rebound or guarding. Barry catheter in place. Musculoskeletal: No tenderness or deformity noted. +2 pitting edema of bilateral lower extremities extending to mid-tibias Skin: Warm and dry. No rash, erythema, pallor or cyanosis Neurological: Alert. CN II-XII grossly intact, moving all extremities equally and fully. MDM: - Vitals signs showed fever and hypoxia. - History obtained via patient and EMS, given patient's history of aphasia, stroke. History as above. - Chronic conditions affecting care: Afib; HTN; HLD; DM-2; CVA; breast cancer; hx of PE - Differential diagnoses include, but are not limited to: Congestive heart failure; acute coronary syndrome; COPD/asthma exacerbation; pulmonary edema; pulmonary embolism; pneumonia; pneumothorax; viral syndrome - Order placed for continuous cardiac monitoring. At this time, monitor showed rate of 74 bpm with normal sinus rhythm, per my interpretation. - External medical records reviewed. Discharge summary dated 05/23/2024 was reviewed. Patient was admitted for stercoral colitis. Patient has a history of a left MCA stroke on 03/30/2024 and is status post embolectomy. She has residual communication deficits and physical deficits. - EKG image interpreted by myself showed normal sinus rhythm. Rate 72 bpm. QT 444. No acute ischemic changes. Noted to have some T wave inversions in lead III. - Laboratory workup interpreted by myself showed leukocytosis (WBC 12.52); stable electrolytes other than hypomagnesemia (Mg 1.6); elevated BNP (105); normal troponin; normal lactate; normal procalcitonin - CXR image reviewed by myself shows right lower lobe pneumonia, per my interpretation. - UA showed evidence of infection. - VBG grossly normal - Viral respiratory panel positive for rhinovirus/enterovirus infection - Blood cultures obtained - Patient given 2g IV rocephin. Patient given 1 g IV Tylenol for pain around her Barry catheter. Per report from the patient's fdc, the patient last had her Barry catheter changed on 10/14/2024. She gets it changed monthly. - Patient not given any significant sepsis fluid resuscitation in the emergency department, given her fluid overload status on clinical assessment and significant oxygen requirement. - Given 1g IV magnesium for electrolyte replacement,. - Discussion was had with pillowcase turner about patient's case and need for admission - Hospitalist consulted for admission at 9:42 AM - Patient admitted to [facility] service for further evaluation and management. ASSESSMENT AND PLAN: Diagnosis: Acute hypoxic respiratory failure; pneumonia; hypomagnesemia; leukocytosis; acute UTI Plan: Admit Past Med/Surg History Problem List Acute UTI (urinary tract infection) (Acute) Leukocytosis (Acute) Hypomagnesemia (Acute) Pneumonia (Acute) Acute hypoxemic respiratory failure (Acute) Nephrolithiasis (Acute) Flatulence (Acute) Barry catheter in place (Chronic) Hydroureteronephrosis (Acute) Frequent UTI (Chronic) Abnormal CT scan, colon Left acute arterial ischemic stroke, MCA (middle cerebral artery) (Chronic) History of pulmonary embolism 5 years ago following injury 15 years ago while on Tamoxifen Atrial fibrillation follows with Dr. Juancarlos Oliveira colitis Back pain (Acute) Abnormal findings on diagnostic imaging of limbs Edema of left lower extremity History of breast cancer dx'd 1993 BL - lumpectomy + radiation recurrence 1999 Rt breast - Rt mastectomy recurrence 2004 Lt breast - Lt mastectomy History of uterine cancer 2011 - treated surgically History of skin cancer removed Abnormal x-ray of knee Left knee pain Gout Hair loss History of colon polyps Encounter for pre-operative examination Statin intolerance Vitamin D deficiency (Chronic) Venous insufficiency (Chronic) Type 2 diabetes mellitus without complication (Chronic) Peripheral edema (Chronic) Insomnia (Chronic) Hypertension (Chronic) Hyperlipidemia (Chronic) Diabetic neuropathy (Chronic) Depression with anxiety (Chronic) Atrial fibrillation (Chronic) Medical History Osteomyelitis of third toe of left foot Fear of needles avoid IV in hand if possible. requests numbing spray if available. On anticoagulant therapy History of cardioversion x 2 Limb alert care status RUE Tubular adenoma of colon Diverticulosis of intestine Surgical History History of toe surgery removal of left middle toe 07/2022 History of lumpectomy of both breasts History of surgery tumor removed from ovary History of tonsillectomy History of hernia surgery History of breast biopsy History of colonoscopy History of total abdominal hysterectomy and bilateral salpingo-oophorectomy History of modified radical mastectomy of both breasts History of hysteroscopy History of dilation and curettage Status post debridement for Necrot Infect with removal of mesh History of breast reconstruction Family History Father Prostate cancer Family/Other Myocardial infarction Denies family history of Ovarian cancer Breast cancer Colorectal cancer Social History Smoking Status: Unknown if ever smoked Second Hand Exposure: No; Do You Dip or Chew Tobacco: No; Hx Alcohol Use: No Hx Substance Use: No Preferred Language: Spanish Communication Ability: Unable Communication Ability Comment: Yes or no, shaking head Visual Impairment: No Limitations Hearing Ability: Normal Day Care Home Mother Required: No Beliefs That Will Affect Care: None marital status: Current Living Situation: Spouse current occupational status: retired 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 How many Children do You have: 2 Feels Safe at Home: Yes Childhood Exposure to Second-Hand Smoke: No Diet: diabetic caffeine: Yes Dental Care, Regularly: Yes Physical Activity Frequency: Daily Seatbelt Use: always Sunscreen Use: No Assistive Devices: None Allergies Allergies Allergy/AdvReac Type Severity Reaction Status Date / Time levofloxacin Allergy Severe Rash Verified 09/22/24 14:31 Home Meds Home Medications Medication Instructions Recorded Confirmed Fleet Enema 133 ml ONCE constipation 04/24/24 09/22/24 Insta-Glucose 15 g PO ONCE PRN Hypoglycemia 04/24/24 09/22/24 bisacodyl 10 mg rectal suppository 10 mg ID DAILY PRN Constipation 04/24/24 09/22/24 docusate sodium 100 mg capsule 100 mg PO BID 04/24/24 09/22/24 glucagon HCl 1 mg solution for 1 mg subcut ONCE PRN Hypoglycemia 04/24/24 09/22/24 injection insulin glargine 100 unit/mL (3 32 unit subcut PM 04/24/24 09/22/24 mL) subcutaneous pen, sensor magnesium hydroxide 400 mg/5 mL 30 ml PO DAILY PRN Constipation 04/24/24 09/22/24 oral suspension ondansetron HCl 4 mg tablet 4 mg PO Q4H 04/24/24 09/22/24 sennosides 8.6 mg-docusate sodium 1 tab-cap PO DAILY PRN Constipation 04/24/24 09/22/24 50 mg tablet (Senokot-S) simethicone 80 mg tablet 160 mg PO Q8H PRN flatulence 04/24/24 09/22/24 zinc oxide 20 % topical ointment 1 applic topical BID 04/24/24 09/22/24 Previous Rx's Medication Instructions Recorded L.acidop,casei,lactis,rham-B.lact,jahaira 1 cap PO DAILY #30 caps 05/13/24 625 mg (10 billion cell) capsule (Advanced Probiotic) acetaminophen 325 mg tablet 650 mg (2 x 325 mg) PO Q6H Pain #0 05/13/24 (Tylenol) tabs apixaban 5 mg tablet 5 mg PO BID #60 tabs 05/13/24 baclofen 10 mg tablet 10 mg PO TID #90 tabs 05/13/24 diclofenac sodium 1 % topical gel 2 g EXT QID #100 grams 05/13/24 (Voltaren Arthritis Pain) escitalopram oxalate 10 mg tablet 10 mg PO DAILY #30 tabs 05/13/24 (Lexapro) ezetimibe 10 mg tablet 10 mg PO DAILY #30 tabs 05/13/24 flecainide 100 mg tablet 100 mg PO Q12H #60 tabs 05/13/24 gabapentin 100 mg capsule 100 mg PO HS PRN pain #30 caps 05/13/24 gabapentin 100 mg capsule 100 mg PO TID #90 caps 05/13/24 guaifenesin 600 mg tablet, 600 mg PO Q12H #60 tabs 05/13/24 extended release 12 hr lidocaine 5 % topical patch 1 patch transdermal QAM #30 ea 05/13/24 metoprolol tartrate 25 mg tablet 25 mg PO BID #60 tabs 05/13/24 pantoprazole 40 mg tablet,delayed 40 mg PO DAILY #30 tabs 05/13/24 release polyethylene glycol 3350 17 17 g PO DAILY #119 grams 05/13/24 gram/dose oral powder polyethylene glycol 3350 17 17 g PO PM PRN if no BM today #119 05/13/24 gram/dose oral powder (Miralax) grams cranberry extract 425 mg capsule 425 mg PO DAILY #90 caps 07/22/24 d-mannose 500 mg capsule 500 mg PO DAILY #90 caps 07/22/24 Results & Data (ED) Vital Signs Vital Signs - 24 hr 11/03/24 07:35 11/03/24 07:45 11/03/24 07:45 Temperature 37.7 C H Temperature Source Rectal Pulse Rate 74 73 Pulse Rate [Right Finger] 73 Pulse Rhythm Regular Pulse Rhythm [Right Finger] Regular Pulse Strength Normal Pulse Strength [Right Finger] Normal Respiratory Rate 21 21 Respiratory Effort / Characteristics Non-Labored Non-Labored Respiratory Depth Normal Normal Respiratory Pattern Regular Regular Blood Pressure 110/74 Blood Pressure [Right Arm] 110/74 Blood Pressure Mean 86 Blood Pressure Mean [Right Arm] 86 Blood Pressure Position Lying Blood Pressure Position [Right Arm] Lying Pulse Oximetry 88 L 88 L Oxygen Delivery Method Room Air Room Air Oxygen Flow Rate Sepsis Recent Fever Within 48 Hours Yes Sepsis New/Unexplained Change in Mental Status No Sepsis Action Taken by Nursing No Action Required Oxygen Flow Rate - Titration Pulse Oximetry Post Tiitration 11/03/24 07:45 11/03/24 07:45 11/03/24 08:08 Temperature Temperature Source Pulse Rate Pulse Rate [Right Finger] 75 Pulse Rhythm Pulse Rhythm [Right Finger] Regular Pulse Strength Pulse Strength [Right Finger] Normal Respiratory Rate 20 Respiratory Effort / Characteristics Non-Labored Respiratory Depth Normal Respiratory Pattern Regular Blood Pressure Blood Pressure [Right Arm] 129/67 Blood Pressure Mean Blood Pressure Mean [Right Arm] 87 Blood Pressure Position Blood Pressure Position [Right Arm] Lying Pulse Oximetry 88 L 94 98 Oxygen Delivery Method Room Air Oxymask Room Air Oxymask Oxygen Flow Rate 0 10 Sepsis Recent Fever Within 48 Hours Sepsis New/Unexplained Change in Mental Status Sepsis Action Taken by Nursing Oxygen Flow Rate - Titration 10 Pulse Oximetry Post Tiitration 94 11/03/24 08:16 11/03/24 09:11 Temperature Temperature Source Pulse Rate Pulse Rate [Right Finger] 71 Pulse Rhythm Pulse Rhythm [Right Finger] Regular Pulse Strength Pulse Strength [Right Finger] Normal Respiratory Rate 20 Respiratory Effort / Characteristics Non-Labored Respiratory Depth Normal Respiratory Pattern Regular Blood Pressure Blood Pressure [Right Arm] 140/66 Blood Pressure Mean Blood Pressure Mean [Right Arm] 90 Blood Pressure Position Blood Pressure Position [Right Arm] Lying Pulse Oximetry 88 L 94 Oxygen Delivery Method Room Air Oxymask Oxymask Oxygen Flow Rate 0 10 Sepsis Recent Fever Within 48 Hours Sepsis New/Unexplained Change in Mental Status Sepsis Action Taken by Nursing Oxygen Flow Rate - Titration 10 Pulse Oximetry Post Tiitration 94 Laboratory Data 11/03/24 07:30 11/03/24 07:30 Lab Results 11/03/24 11/03/24 Range/Units 07:30 08:05 WBC 12.52 H (4.8-10.8) K/ul RBC 3.84 L (4.20-5.40) M/uL Hgb 11.2 L (12.0-16.0) g/dl Hct 34.4 L (37.0-47.0) % MCV 89.6 (80.0-100.0) fL MCH 29.2 (25.0-34.0) pg MCHC 32.6 (32.0-36.0) g/dL RDW Std Deviation 56.0 H (36.4-46.3) fL RDW Coeff of Linda 17.0 H (11.5-14.5) % Plt Count 439 H (130-400) K/uL MPV 10.3 (9.4-12.4) fL Immature Gran % (Auto) 0.5 % Neut % (Auto) 76.9 % Lymph % (Auto) 14.8 % Wise % (Auto) 7.3 % Eos % (Auto) 0.2 % Baso % (Auto) 0.3 % Neut # (Auto) 9.63 H (1.40-6.50) K/uL Lymph # (Auto) 1.85 (1.20-3.40) K/uL Wise # (Auto) 0.92 H (0.11-0.59) K/uL Eos # (Auto) 0.02 (0.00-0.50) K/uL Baso # (Auto) 0.04 (0.00-0.20) K/uL Immature Gran # (Auto) 0.06 (0.01-0.20) K/uL PT 11.4 (9.0-12.0) Seconds INR 1.1 (0.9-1.1) APTT 32 H (21-31) Seconds PTT Ratio 1.2 VBG pH 7.44 H (7.36-7.41) VBG pCO2 40 (38-50) mmHg VBG pO2 59 mmHg VBG HCO3 27 mmol/L VBG O2 Saturation 90.8 % VBG Base Excess 2.8 mEq/L Sodium 137 (136-145) mmol/L Potassium 4.1 (3.5-5.1) mmol/L Chloride 103 (98-107) mmol/L Carbon Dioxide 26 (21-32) mmol/L Anion Gap 8 (3-11) BUN 15 (6-23) mg/dl Creatinine 0.44 L (0.6-1.2) mg/dl Est Cr Clr Drug Dosing 123.9 ml/min eGFR 100.18 BUN/Creatinine Ratio 34.1 H (10-20) Glucose 142 H (70-99(Fasting)) mg/dl Lactate 0.8 (0.4-2.0) mmol/L Calcium 8.3 L (8.6-10.3) mg/dl Magnesium 1.6 L (1.7-2.4) mg/dl Total Bilirubin 0.5 (0.2-1.0) mg/dl AST 6 L (13-39) U/L ALT 4 L (7-52) U/L Alkaline Phosphatase 75 (34-104) U/L Troponin I High Sens 5.6 (0-14) pg/ml B-Natriuretic Peptide 105 H (0-100) pg/ml Total Protein 6.3 (6.0-8.3) gm/dl Albumin 2.9 L (3.4-5.0) gm/dl Globulin 3.4 (2.5-4.0) gm/dl Albumin/Globulin Ratio 0.9 (0.9-2) Procalcitonin 0.10 (0-0.5) ng/ml Urine Color Dark Yellow Urine Appearance Cloudy A (Clear) Urine pH 7.5 (4.5-7.5) Ur Specific Hersey 1.026 (1.000-1.030) Urine Protein 1+ H (Negative) Urine Glucose (UA) Negative (Negative) Urine Ketones Trace H (Negative) Urine Blood 1+ H (Negative) Urine Nitrite Positive A (Negative) Urine Bilirubin Negative (Negative) Urine Urobilinogen Negative (Negative) Ur Leukocyte Esterase 3+ H (Negative) Urine WBC (Auto) >50 H (0-5) /hpf Urine RBC (Auto) 6-10 H (0-2) /hpf U Hyaline Cast (Auto) 6-10 H (0-2) /lpf U Epithel Cells (Auto) 0-2 (0-2) /hpf Urine Bacteria (Auto) 4+ H (None Seen) Triple Phos Crystals Present A (None Prsent) Urine Comment Adenovirus (PCR) Not Detected (NotDetected) B. pertussis DNA (PCR) Not Detected (NotDetected) B.parapertussis DNA PCR Not Detected (NotDetected) C. pneumoniae DNA (PCR) Not Detected (NotDetected) Coronavirus OC43 (PCR) Not Detected (NotDetected) Coronavirus HKU1 (PCR) Not Detected (NotDetected) Coronavirus 229E (PCR) Not Detected (NotDetected) SARS-CoV-2 (PCR) Not Detected (NotDetected) Coronavirus NL63 (PCR) Not Detected (NotDetected) Human Metapneumovir PCR Not Detected (NotDetected) Influenza Type A (PCR) Not Detected (NotDetected) Influenza Type B (PCR) Not Detected (NotDetected) M. pneumoniae (PCR) Not Detected (NotDetected) Parainfluenza 1 (PCR) Not Detected (NotDetected) Parainfluenza 2 (PCR) Not Detected (NotDetected) Parainfluenza 3 (PCR) Not Detected (NotDetected) Parainfluenza 4 (PCR) Not Detected (NotDetected) RSV (PCR) Not Detected (NotDetected) Entero/Rhino (PCR) DETECTED A (NotDetected) Administered Medications Magnesium Sulfate/Dextrose (Magnesium Sulfate / D5w) 1 gm in 100 mls @ 100 mls/hr IV NOW STA Stop: 11/03/24 10:42 Last Admin: 11/03/24 09:51 Dose: 100 mls/hr Documented By: QGV Discontinued Medications Ceftriaxone Sodium (Rocephin) 2,000 mg in 50 mls @ 100 mls/hr IV NOW STA Stop: 11/03/24 09:22 Last Infusion: 11/03/24 09:31 Dose: Infused Documented By: Admin: 11/03/24 08:57 Dose: 100 mls/hr Documented By: TEMO Acetaminophen (Ofirmev) 1,000 mg in 100 mls @ 400 mls/hr IV NOW STA Stop: 11/03/24 10:29 Last Admin: 11/03/24 10:24 Dose: 400 mls/hr Documented By: TEMO Imaging Data Radiologist's Impression: Chest X-Ray 11/03/24 07:35 EXAM: XR chest 1V not portable CLINICAL HISTORY: Sepsis. TECHNIQUE: An X-ray image of the chest is obtained in AP projection. COMPARISON: Prior chest X-ray dated 01/31/2020. FINDINGS: Pulmonary Parenchyma: Right lower lung airspace opacity. No evidence of pleural effusion or pleural thickening. The left pleural recess/lung base are partially masked by the cardiac and sift tissue shadow. Heart and Mediastinum: Heart size and shape are normal. No mediastinal widening or masses. No hilar or mediastinal lymphadenopathy. Bony Thorax: Bony thorax appears intact without fractures or deformities. Soft Tissues: Soft tissues overlying the chest wall are unremarkable. IMPRESSION: Right lower lung airspace opacity, suggesting pneumonia clinical correlation needed (new). Electronically signed by Espinoza Vela 11-03-2024 08:46 AM Discharge Plan Visit Data Chief Complaint: Shortness of Breath/Dyspnea ED Provider: Etelvina Banks Discharge Problem: Acute hypoxemic respiratory failure, Pneumonia, Hypomagnesemia, Leukocytosis, Acute UTI (urinary tract infection) Condition: Fair Forms Stand Alone Forms: [facility] [employer] Prescriptions Prescriptions: No Action cranberry extract 425 mg capsule 425 mg PO DAILY Qty: 90 3RF Rx Instructions: administer with a meal d-mannose 500 mg capsule 500 mg PO DAILY Qty: 90 3RF ondansetron HCl 4 mg Tablet 4 mg PO Q4H magnesium hydroxide 400 mg/5 mL Suspension 30 ml PO DAILY PRN (Reason: Constipation) bisacodyl 10 mg Suppository 10 mg ID DAILY PRN (Reason: Constipation) docusate sodium 100 mg Capsule 100 mg PO BID Fleet Enema 133 ml ONCE Insta-Glucose 15 g PO ONCE PRN (Reason: Hypoglycemia) sennosides-docusate sodium [Senokot-S] 8.6-50 mg Tablet 1 tab-cap PO DAILY PRN (Reason: Constipation) zinc oxide 20 % Ointment 1 applic TOPICAL BID simethicone 80 mg Tablet 160 mg PO Q8H PRN (Reason: flatulence) glucagon HCl 1 mg Recon Soln 1 mg subcut ONCE PRN (Reason: Hypoglycemia) insulin glargine 100 unit/mL (3 mL) Insulin Pen, Sensor 32 unit SUBCUT PM diclofenac sodium [Voltaren Arthritis Pain] 1 % Gel 2 g EXT QID Qty: 100 0RF gabapentin 100 mg Capsule 100 mg PO HS PRN (Reason: pain) Qty: 30 0RF gabapentin 100 mg Capsule 100 mg PO TID Qty: 90 0RF lidocaine 5 % Adhesive Patch,Medicated 1 patch transdermal QAM Qty: 30 0RF Advanced Probiotic 625 mg (10 billion cell) Capsule 1 cap PO DAILY Qty: 30 0RF polyethylene glycol 3350 [Miralax] 17 gram/dose powder 17 g PO PM PRN (Reason: if no BM today) Qty: 119 0RF Rx Instructions: second dose if no BM today. acetaminophen [Tylenol] 325 mg Tablet 650 mg PO Q6H Qty: 0 0RF baclofen 10 mg Tablet 10 mg PO TID Qty: 90 0RF pantoprazole 40 mg Tablet,Delayed Release (Dr/Ec) 40 mg PO DAILY Qty: 30 0RF flecainide 100 mg tablet 100 mg PO Q12H Qty: 60 0RF polyethylene glycol 3350 17 gram/dose Powder 17 g PO DAILY Qty: 119 0RF Rx Instructions: hold if diarrhea escitalopram oxalate [Lexapro] 10 mg Tablet 10 mg PO DAILY Qty: 30 0RF ezetimibe 10 mg tablet 10 mg PO DAILY Qty: 30 0RF metoprolol tartrate 25 mg Tablet 25 mg PO BID Qty: 60 0RF apixaban 5 mg Tablet 5 mg PO BID Qty: 60 0RF guaifenesin 600 mg Tablet Extended Release 12hr 600 mg PO Q12H Qty: 60 0RF Referrals Referrals: Monika Loco CRNP [Nurse Practitioner] -
[2024-11-03 07:57] LABS: Base Excess VBG 2.8 mEq/L; HCO3 VBG 27 mmol/L; Oxygen Saturation VBG 90.8 %; PCO2 VBG 40 mmHg (38-50); PO2 VBG 59 mmHg; pH VBG 7.44 (7.36-7.41)
[2024-11-03 08:23] LABS: Alanine Aminotransferase 4.0 U/L (7-52); Albumin Globulin Ratio 0.9 (0.9-2); Alkaline Phosphatase 75.0 U/L (34-104); Anion Gap 8.0 (3-11); Bilirubin,Total 0.5 mg/dl (0.2-1.0); Blood Urea Nitrogen 15.0 mg/dl (6-23); Calcium 8.3 mg/dl (8.6-10.3); Carbon Dioxide 26.0 mmol/L (21-32); Chloride 103.0 mmol/L (98-107); Creatinine Clr Calc Pharmacy 123.9 ml/min; Globulin 3.4 gm/dl (2.5-4.0); Glucose 142.0 mg/dl (70-99(Fasting)); Magnesium 1.6 mg/dl (1.7-2.4); Potassium 4.1 mmol/L (3.5-5.1); Sodium 137.0 mmol/L (136-145); Total Protein 6.3 gm/dl (6.0-8.3)
[2024-11-03 08:34] LABS: Hematocrit (blood only) 34.4 % (37.0-47.0); Hemoglobin 11.2 g/dl (12.0-16.0); Immature Granulocytes # (auto) 0.06 K/uL (0.01-0.20); Immature Granulocytes % (auto) 0.5 %; Mean Corpuscular Hemoglobin 29.2 pg (25.0-34.0); Mean Corpuscular Volume 89.6 fL (80.0-100.0); Platelet Count 439 K/uL (130-400); RDW Standard Deviation 56.0 fL (36.4-46.3); Red Blood Count 3.84 M/uL (4.20-5.40); White Blood Count 12.52 K/ul (4.8-10.8)
[2024-11-03 08:35] LABS: INR 1.1 (0.9-1.1); Partial Thromboplastin Time 32 Seconds (21-31); Prothrombin Time 11.4 Seconds (9.0-12.0)
[2024-11-03 08:40] LABS: Appearance Urine Cloudy (Clear); Bacteria Urine Automated 4+ (None Seen); Epithelial Cell Urine Auto 0-2 /hpf (0-2); Glucose Urine UA Negative (Negative); WBC Urine Automated >50 /hpf (0-5)
--- NOTE | 2024-11-03 08:46 | XRay Report ---
EXAM: XR chest 1V not portable CLINICAL HISTORY: Sepsis. TECHNIQUE: An X-ray image of the chest is obtained in AP projection. COMPARISON: Prior chest X-ray dated 01/31/2020. FINDINGS: Pulmonary Parenchyma: Right lower lung airspace opacity. No evidence of pleural effusion or pleural thickening. The left pleural recess/lung base are partially masked by the cardiac and sift tissue shadow. Heart and Mediastinum: Heart size and shape are normal. No mediastinal widening or masses. No hilar or mediastinal lymphadenopathy. Bony Thorax: Bony thorax appears intact without fractures or deformities. Soft Tissues: Soft tissues overlying the chest wall are unremarkable. IMPRESSION: Right lower lung airspace opacity, suggesting pneumonia clinical correlation needed (new). Electronically signed by Espinoza Vela 11-03-2024 08:46 AM
[2024-11-03 08:47] LABS: Chlamydia pneumoniae PCR Not Detected (NotDetected); Coronavirus 229E PCR Not Detected (NotDetected); Coronavirus CoV-2 (COVID19)PCR Not Detected (NotDetected); Coronavirus HKU1 PCR Not Detected (NotDetected); Coronavirus NL63 PCR Not Detected (NotDetected); Coronavirus OC43PCR Not Detected (NotDetected); Human Metapneumovirus PCR Not Detected (NotDetected); Parainfluenza Virus 1 PCR Not Detected (NotDetected); Parainfluenza Virus 2 PCR Not Detected (NotDetected); Parainfluenza Virus 3 PCR Not Detected (NotDetected); Parainfluenza Virus 4 PCR Not Detected (NotDetected); Respiratory Syncytial VirusPCR Not Detected (NotDetected); Rhinovirus/Enterovirus PCR DETECTED (NotDetected)
[2024-11-03] MEDS: cefTRIAXone SODIUM 2,000 MG/50 ML BAG IV STA (08:57)
[2024-11-03] MEDS: MAGNESIUM SULFATE / D5W 1 GM/100 ML BAG IV STA (09:51)
--- NOTE | 2024-11-03 10:15 | History & Physical Report ---
Date of Service November 03, 2024 Assessment & Plan (1) Acute hypoxemic respiratory failure: (2) Aspiration pneumonia: (3) Enterovirus infection: (4) Complicated UTI (urinary tract infection): (5) Chronic indwelling Lenz catheter: (6) Hypomagnesemia: (7) Type 2 diabetes mellitus without complication: (8) Atrial fibrillation: (9) On anticoagulant therapy: Plan This is a 74-year-old female who has significant past medical history of atrial fibrillation anticoagulated on Eliquis, T2DM, diabetic neuropathy, HTN, HLD, gouty arthropathy, history of left MCA CVA with right hemiparesis, dysphagia and aphasia, chronic RBBB, history of amputation of toe on left foot, history of breast cancer and depression with anxiety who presents to ED due to concerns for pneumonia from snf facility. #Acute hypoxemic respiratory failure #Aspiration Pneumonia in setting of witness Aspiration event at SNF (10/30 choked on grilled cheese) #Entero/Rhinovirus positive (had viral URI sx since 10/27) admit to PCU wean O2 as able IV Cefepime and flagyl consult ST - plan for video swallow when able, will keep full liquid diet for now muccinex, sputum culture, incentive spirometry, flonase, MRSA swab #CA- UTI, POA chronic lenz, recurrent UTI, follows [facility] urology previous cultures grew kleb, e coli and proteus will tx with IV cefepime for adequate coverage await urine/blood cultures have nursing exchange lenz, last done on 10/14 #Hypomagnesemia replace, mag 1.6, 2g mag sulfate ordered in ED # T2DM obtain a1c in a.m., hold metformin lantus/novolog per protocol chronic, stable #PAF on long term acute care registered nurse eliquis continue eliquis, metoprolol and flecanine pt rate/rhythm controlled #Hx of L MCA CVA with residual aphasia, dysphagia and RHP on eliquis and repatha states repatha due 11/03 on day of admission; however recommend pt hold until acute illness improved can resume when return to SNF #DVT ppx: Eliquis FULL CODE - discussed with pt and at bedside PCP: Rico - pt LTC resident at [facility] Dispo: admit to PCU, will need PT/OT eval when approp Pt was seen and examined in collaboration with Dr. Foss, please see addendum I spent a total of 76 minutes coordinating, documenting and providing care for this patient excluding time spent in the performance of separately billed services or time spent by another provider/QHP. History of Present Illness Chief Complaint: Worsening cough/resp sx Primary Care Provider: Bossman Gómez MD This is a 74-year-old female who has significant past medical history of atrial fibrillation anticoagulated on Eliquis, T2DM, diabetic neuropathy, HTN, HLD, gouty arthropathy, history of left MCA CVA with right hemiparesis, dysphagia and aphasia, chronic RBBB, history of amputation of toe on left foot, history of breast cancer and depression with anxiety who presents to ED due to concerns for pneumonia from snf facility. Hx obtained from ED provider, pt and at bedside along with external chart review. Earlier this month she did have a viral URI. She was seen by provider at group home for this on 10/27. She was again seen on 11/01 by provider due to a choking episode that occurred on 10/30 requiring Heimlich maneuver with clearance of a piece of grilled cheese. She did require transient supplemental oxygen and since this event has been having ongoing respiratory symptoms. She has been having documented fevers 10/29. Tmax was 102. Due to this she was referred to ED. She overall feels unwell today. She complains of shortness of breath, cough and feeling feverish. She overall reports feeling unwell for the last few weeks. at bedside states he also has similar symptoms. Overall her appetite has been diminished. She has a chronic Lenz catheter for which was last exchanged on 10/14. She denies any dizziness, lightheadedness, chest pain, palpitations, hemoptysis, nausea, vomiting, abdominal pain. Her last bowel movement was yesterday. She has been taking her medications regularly. At baseline she is mostly in a wheelchair at [facility]. In ED patient required 10 L of supplemental oxygen via facemask due to mouth breathing. She reports mouth breathing due to sinus congestion. Allergies Allergy/AdvReac Type Severity Reaction Status Date / Time levofloxacin Allergy Severe Rash Verified 09/22/24 14:31 Home Medications Medication Instructions Recorded Confirmed Type bisacodyl 10 mg rectal suppository 10 mg WV DAILY PRN Constipation 04/24/24 11/03/24 History docusate sodium 100 mg capsule 100 mg PO BID 04/24/24 11/03/24 History glucagon HCl 1 mg solution for 1 mg subcut ONCE PRN Hypoglycemia 04/24/24 11/03/24 History injection ondansetron HCl 4 mg tablet 4 mg PO Q4H 04/24/24 11/03/24 History sennosides 8.6 mg-docusate sodium 1 tab-cap PO DAILY PRN Constipation 04/24/24 11/03/24 History 50 mg tablet (Senokot-S) simethicone 80 mg tablet 80 mg PO TID PRN flatulence 04/24/24 11/03/24 History escitalopram oxalate 10 mg tablet 10 mg PO DAILY #30 tabs 05/13/24 11/03/24 Rx (Lexapro) ezetimibe 10 mg tablet 10 mg PO DAILY #30 tabs 05/13/24 11/03/24 Rx L.acidop,casei,lactis,rham-B.lact,jahaira 1 cap PO DAILY 11/03/24 11/03/24 History 625 mg (10 billion cell) capsule (Advanced Probiotic) acetaminophen 325 mg tablet 650 mg PO Q4H PRN Pain 11/03/24 11/03/24 History allopurinol 300 mg tablet 450 mg PO DAILY 11/03/24 11/03/24 History apixaban 5 mg tablet 5 mg PO BID 11/03/24 11/03/24 History baclofen 10 mg tablet 10 mg PO BID PRN spasticity 11/03/24 11/03/24 History cranberry extract 425 mg capsule 425 mg PO DAILY 11/03/24 11/03/24 History d-mannose 500 mg capsule 500 mg PO DAILY 11/03/24 11/03/24 History diclofenac sodium 1 % topical gel 2 g EXT QID 11/03/24 11/03/24 History (Voltaren Arthritis Pain) evolocumab 140 mg/mL subcutaneous 140 mg subcut Q14D 11/03/24 11/03/24 History pen injector (Carolyn Laurent) flecainide 100 mg tablet 100 mg PO BID 11/03/24 11/03/24 History furosemide 40 mg tablet 40 mg PO DAILY PRN weight gain 11/03/24 11/03/24 History >than 2 lbs gabapentin 300 mg capsule 300 mg PO HS 11/03/24 11/03/24 History guaifenesin 100 mg/5 mL oral liquid 200 mg PO Q4H PRN Cough 11/03/24 11/03/24 History ipratropium 0.5 mg-albuterol 3 mg 3 ml inhalation Q6H PRN 11/03/24 11/03/24 History (2.5 mg base)/3 mL nebulization cough/SOB/wheeze soln lidocaine HCl 2 % topical gel 1 applic topical Q6H PRN urethral 11/03/24 11/03/24 History pain melatonin 3 mg tablet 3 mg PO HS 11/03/24 11/03/24 History metformin 500 mg tablet,extended 1,000 mg PO BID 11/03/24 11/03/24 History release 24 hr metoprolol tartrate 25 mg tablet 25 mg PO BID 11/03/24 11/03/24 History pantoprazole 40 mg tablet,delayed 40 mg PO DAILY 11/03/24 11/03/24 History release polyethylene glycol 3350 17 17 g PO BID 11/03/24 11/03/24 History gram/dose oral powder Past Med/Surg History Problem List Chronic indwelling Lenz catheter Complicated UTI (urinary tract infection) Enterovirus infection Aspiration pneumonia Acute UTI (urinary tract infection) (Acute) Leukocytosis (Acute) Hypomagnesemia (Acute) Pneumonia (Acute) Acute hypoxemic respiratory failure (Acute) Nephrolithiasis (Acute) Flatulence (Acute) Lenz catheter in place (Chronic) Hydroureteronephrosis (Acute) Frequent UTI (Chronic) Abnormal CT scan, colon Left acute arterial ischemic stroke, MCA (middle cerebral artery) (Chronic) History of pulmonary embolism 5 years ago following injury 15 years ago while on Tamoxifen Atrial fibrillation follows with Dr. Juancarlos Oliveira colitis Back pain (Acute) Abnormal findings on diagnostic imaging of limbs Edema of left lower extremity History of breast cancer dx'd 1993 BL - lumpectomy + radiation recurrence 1999 Rt breast - Rt mastectomy recurrence 2004 Lt breast - Lt mastectomy History of uterine cancer 2011 - treated surgically History of skin cancer removed Abnormal x-ray of knee Left knee pain Gout Hair loss History of colon polyps Encounter for pre-operative examination Statin intolerance Vitamin D deficiency (Chronic) Venous insufficiency (Chronic) Type 2 diabetes mellitus without complication (Chronic) Peripheral edema (Chronic) Insomnia (Chronic) Hypertension (Chronic) Hyperlipidemia (Chronic) Diabetic neuropathy (Chronic) Depression with anxiety (Chronic) Atrial fibrillation (Chronic) Medical History Osteomyelitis of third toe of left foot Fear of needles avoid IV in hand if possible. requests numbing spray if available. On anticoagulant therapy History of cardioversion x 2 Limb alert care status RUE Tubular adenoma of colon Diverticulosis of intestine Surgical History History of toe surgery removal of left middle toe 07/2022 History of lumpectomy of both breasts History of surgery tumor removed from ovary History of tonsillectomy History of hernia surgery History of breast biopsy History of colonoscopy History of total abdominal hysterectomy and bilateral salpingo-oophorectomy History of modified radical mastectomy of both breasts History of hysteroscopy History of dilation and curettage Status post debridement for Necrot Infect with removal of mesh History of breast reconstruction Family History Father Prostate cancer Family/Other Myocardial infarction Denies family history of Ovarian cancer Breast cancer Colorectal cancer Social History Smoking Status: Never smoker Second Hand Exposure: No; Do You Dip or Chew Tobacco: No; Hx Alcohol Use: No Hx Substance Use: No Preferred Language: Portuguese Communication Ability: Impaired Communication Ability Comment: Yes or no, shaking head Visual Impairment: No Limitations Hearing Ability: Normal 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 Required: No Beliefs That Will Affect Care: None marital status: Current Living Situation: [facility] current occupational status: 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 How many Children do You have: 2 Other Information That Helps Us Care for You: No Feels Safe at Home: Yes Safety Concerns: Feels Safe At This Time Childhood Exposure to Second-Hand Smoke: No Diet: diabetic caffeine: Yes Dental Care, Regularly: Yes Physical Activity Frequency: Daily Seatbelt Use: always Sunscreen Use: No Review of Systems Review of Systems: All systems reviewed & are unremarkable except as noted in HPI & below Physical Exam Physical Exam: Constitutional: Chronically ill appearing, F, vitals as above, NAD, sitting up in bed, pleasant, conversing easily; however has aphasia Head: Normocephalic, Atraumatic Eyes: PERRL, conjunctivae normal, anicteric sclerae ENMT: external ear and nose normal, oropharynx normal dry membranes Neck: trachea midline, no thyromegaly normal visual inspection Respiratory: normal respiratory effort, lungs clear to auscultation, no wheeze, rales, rhonchi. Normal insp/exp effort, no accessory muscle use Cardiovascular: RRR, no murmur, no edema Vessels: no JVD or carotid bruit Chest: normal inspection of chest Abdomen: normal bowel sounds, soft, nontender, no hepatosplenomegaly Musculoskeletal: no cyanosis or clubbing, extremities motor strength 5/5 Skin: no rashes, warm and dry normal turgor Neurologic: PERRL, EOMI, accommodation nl, no face palsy, no dysarthria CN's II-XI intact bilaterally and moves all extremities Psychiatric: A+Ox3, euthymic affect Lymphatic: no cervical or axillary lymphadenopathy : deferred Results & Data Results & Data Vital Signs (Past 12 Hours) Vital Signs Temp Pulse Pulse Resp BP BP Pulse Ox 11/03/24 09:11 71 20 140/66 94 11/03/24 08:16 88 L 11/03/24 08:08 75 20 129/67 98 11/03/24 07:45 94 11/03/24 07:45 88 L 11/03/24 07:45 73 21 110/74 88 L 11/03/24 07:45 37.7 C H 73 21 110/74 88 L 11/03/24 07:35 74 O2 Del Method O2 Flow Rate 11/03/24 09:11 Oxymask 10 11/03/24 08:16 Room Air, Oxymask 0 11/03/24 08:08 Oxymask 10 11/03/24 07:45 Room Air 11/03/24 07:45 Room Air, Oxymask 0 11/03/24 07:45 Room Air 11/03/24 07:45 Room Air 11/03/24 07:35 Laboratory Results I have independently reviewed and interpreted patient's admitting labs including CBC, CMP, PTT, PT/INR, procal, bnp, mag and troponin. Diagnostic Findings Chest X-Ray 11/03/24 07:35 EXAM: XR chest 1V not portable CLINICAL HISTORY: Sepsis. TECHNIQUE: An X-ray image of the chest is obtained in AP projection. COMPARISON: Prior chest X-ray dated 01/31/2020. FINDINGS: Pulmonary Parenchyma: Right lower lung airspace opacity. No evidence of pleural effusion or pleural thickening. The left pleural recess/lung base are partially masked by the cardiac and sift tissue shadow. Heart and Mediastinum: Heart size and shape are normal. No mediastinal widening or masses. No hilar or mediastinal lymphadenopathy. Bony Thorax: Bony thorax appears intact without fractures or deformities. Soft Tissues: Soft tissues overlying the chest wall are unremarkable. IMPRESSION: Right lower lung airspace opacity, suggesting pneumonia clinical correlation needed (new). Electronically signed by Espinoza Vela 11-03-2024 08:46 AM Medications Administered Medication List Magnesium Sulfate/Dextrose (Magnesium Sulfate / D5w) 1 gm in 100 mls @ 100 mls/hr IV NOW STA Stop: 11/03/24 10:42 Last Admin: 11/03/24 09:51 Dose: 100 mls/hr Documented By: QGV Discontinued Medications Ceftriaxone Sodium (Rocephin) 2,000 mg in 50 mls @ 100 mls/hr IV NOW STA Stop: 11/03/24 09:22 Last Infusion: 11/03/24 09:31 Dose: Infused Documented By: Admin: 11/03/24 08:57 Dose: 100 mls/hr Documented By: SHB ECG Additional Comments: I have independently reviewed and interpreted patient's admitting EKG which revealed: 72 bpm, RBBB, inferior t wave inversion unchanged from ecg on 04/24/24. COVID-19 Results Results COVID-19 Adm Lab Results: RBC 3.84 M/uL (4.20-5.40) L 11/03/24 WBC 12.52 K/ul (4.8-10.8) H 11/03/24 Hgb 11.2 g/dl (12.0-16.0) L 11/03/24 Hct 34.4 % (37.0-47.0) L 11/03/24 Plt Count 439 K/uL (130-400) H 11/03/24 Neutrophils (%) (Auto) 76.9 % 11/03/24 Lymphocytes (%) (Auto) 14.8 % 11/03/24 Monocytes # (Auto) 0.92 K/uL (0.11-0.59) H 11/03/24 Eosinophils # (Auto) 0.02 K/uL (0.00-0.50) 11/03/24 Immature Granulocyte % (Auto) 0.5 % 11/03/24 Neutrophils # (Auto) 9.63 K/uL (1.40-6.50) H 11/03/24 Lymphocytes # (Auto) 1.85 K/uL (1.20-3.40) 11/03/24 Monocytes # (Auto) 0.92 K/uL (0.11-0.59) H 11/03/24 Eosinophils # (Auto) 0.02 K/uL (0.00-0.50) 11/03/24 Basophils # (Auto) 0.04 K/uL (0.00-0.20) 11/03/24 Immature Granulocyte # (Auto) 0.06 K/uL (0.01-0.20) 5 Na 137 mmol/L (136-145) 11/03/24 K 4.1 mmol/L (3.5-5.1) 11/03/24 Cl 103 mmol/L (98-107) 11/03/24 CO2 26 mmol/L (21-32) 11/03/24 Anion Gap 8 (3-11) 11/03/24 BUN 15 mg/dl (6-23) 11/03/24 Creatinine 0.44 mg/dl (0.6-1.2) L 11/03/24 BUN/Creatinine Ratio 34.1 (10-20) H 11/03/24 Glucose Level 142 mg/dl (70-99(Fasting)) H 11/03/24 Ca 8.3 mg/dl (8.6-10.3) L 11/03/24 Total Bilirubin 0.5 mg/dl (0.2-1.0) 11/03/24 AST/SGOT 6 U/L (13-39) L 11/03/24 ALT/SGPT 4 U/L (7-52) L 11/03/24 Alkaline Phosphatase 75 U/L (34-104) 11/03/24 Total Protein 6.3 gm/dl (6.0-8.3) 11/03/24 Albumin 2.9 gm/dl (3.4-5.0) L 11/03/24 Globulin 3.4 gm/dl (2.5-4.0) 11/03/24 Albumin/Globulin Ratio 0.9 (0.9-2) 11/03/24 Procalcitonin 0.10 ng/ml (0-0.5) 11/03/24 PTT 32 Seconds (21-31) H 11/03/24 INR 1.1 (0.9-1.1) 11/03/24 Adenovirus (PCR) Not Detected (NotDetected) 11/03/24 B. parapertussis DNA (PCR) Not Detected (NotDetected) 10/19 10/13 B. pertussis DNA (PCR) Not Detected (NotDetected) 11/03/24 C. pneumoniae DNA (PCR) Not Detected (NotDetected) 5 Coronavirus Type OC43 (PCR) Not Detected (NotDetected) Coronavirus Type HKU1 (PCR) Not Detected (NotDetected) Coronavirus Type 229E (PCR) Not Detected (NotDetected) COVID-19 PCR Not Detected (NotDetected) 11/03/24 Coronavirus Type NL63 (PCR) Not Detected (NotDetected) Human Metapneumovirus (PCR) Not Detected (NotDetected) Influenza Virus Type A (PCR) Not Detected (NotDetected) Influenza Virus Type B (PCR) Not Detected (NotDetected) M. pneumoniae (PCR) Not Detected (NotDetected) 11/03/24 Parainfluenza Type 1 (PCR) Not Detected (NotDetected) 10/19 10/13 Parainfluenza Type 2 (PCR) Not Detected (NotDetected) 10/19 10/13 Parainfluenza Type 3 (PCR) Not Detected (NotDetected) 10/19 10/13 Parainfluenza Type 4 (PCR) Not Detected (NotDetected) 10/19 10/13 RSV (PCR) Not Detected (NotDetected) 11/03/24 Enterovirus/Rhinovirus (PCR) DETECTED (NotDetected) A 10/19 10/13 Chest X-Ray 11/03/24 Code Status & VTE Plan Code Status FULL CODE Supervising Physician Co-Signing Physician Notes Patient is a 74-year-old female with multiple comorbidities presents from [facility] with history of worsening shortness of breath associated with cough. He was found to be hypoxic in ED requiring supplemental oxygen to maintain saturation. Patient had a choking episode 4 days ago while at nursing facility requiring Heimlich maneuver. She was also noted to be febrile. She denies any chest pain, nausea, vomiting, abdominal pain. Please review HPI for complete details of presentation. I personally reviewed blood work and imaging studies. Chest x-ray concerning for pneumonia. BioFire positive for rhinovirus. Patient currently on 10 L oxygen mask. Physical Exam: Vitals signs as noted above General Appearance: Overweight, no apparent distress, ill-appearing, elderly Head: normocephalic, Atraumatic Eyes: normal inspection, EOMI Neck: supple, Trachea midline Respiratory/Chest: Coarse breath sounds, No accessory muscle use Cardiovascular: S1, S2, No murmur Abdomen/GI:Soft, Non tender, Bowel sounds present Extremities/Musculoskeletal:normal inspection, 1+ edema Neurologic/Psych:AAOX3, grossly no focal neurological deficits Skin: normal color, warm Acute respiratory failure with hypoxia acute respiratory failure with hypoxia Aspiration pneumonia Rhinovirus infection Agree with broad-spectrum antibiotics, Solu-Medrol Speech therapy consulted for video swallow study N.p.o. for now Pulmonary hygiene Replace electrolytes as needed Urinalysis concerning for urinary tract infection On antibiotics as above I personally interviewed and examined the patient at bedside. I have reviewed the advanced practitioner's documentation on the date of service referred in note and agree with plan. Patient's care is coordinated with Eufemia Huitron. Please refer to the documentation above for details of patient's presentation and for discussion of other issues. I spent a total [id number] coordinating, documenting, and providing care for this patient excluding time spent in the performance of separately billed services or time spent by another provider/QHP. (7) Type 2 diabetes mellitus without complication Diabetes mellitus group home insulin use: without group home use Qualified Code(s): E11.9 - Type 2 diabetes mellitus without complications
[2024-11-03] MEDS: ACETAMINOPHEN 1,000 MG/100 ML VIAL IV STA (10:24)
[2024-11-03] MEDS: metroNIDAZOLE 500 MG/100 ML BAG IV STA ×2 (10:52→11:07)
[2024-11-03 12:15] LABS: Base Excess VBG 0.1 mEq/L; HCO3 VBG 25 mmol/L; Oxygen Saturation VBG 93.6 %; PCO2 VBG 39 mmHg (38-50); PO2 VBG 66 mmHg; pH VBG 7.41 (7.36-7.41)
[2024-11-03] MEDS ORDERED: GLUCOSE 10 TAB/TUBE PO PRN (12:16)
[2024-11-03] MEDS ORDERED: FAMOTIDINE 20 MG TAB PO PRN (12:16)
[2024-11-03] MEDS ORDERED: DEXTROSE 50% 50 ML SYRINGE IV PRN (12:16)
[2024-11-03] MEDS ORDERED: GLUCAGON FOR INJ 1 MG VIAL SQ PRN (12:16)
[2024-11-03] MEDS ORDERED: ONDANSETRON INJ 2 MG/ML 2 ML VIAL IV PRN (12:16)
[2024-11-03] MEDS ORDERED: GLUCOSE 40% GEL 15 GM TUBE PO PRN (12:16)
[2024-11-03] MEDS ORDERED: CARBOHYDRATES FOR HYPOGLYCEMIA PO PRN (12:16)
[2024-11-03] MEDS ORDERED: BACLOFEN 10 MG TAB PO PRN (12:16)
[2024-11-03] MEDS: CEFEPIME 2000MG 2,000 MG/20 ML SYR IV SCH (12:51)
[2024-11-03] MEDS: MAGNESIUM SULFATE / D5W 1 GM/100 ML BAG IV ONE (12:51)
[2024-11-03] MEDS: DICLOFENAC SOD 1% GEL 100 GM TUBE EXT SCH (12:51)
[2024-11-03] MEDS: FLUTICASONE PROPIONATE NA SPR 16 GM BTL SCH (12:51)
[2024-11-03] MEDS: ONDANSETRON INJ 2 MG/ML 2 ML VIAL IV STA (12:51)
--- NOTE | 2024-11-03 13:10 | Electrocardiogram Report ---
Test Reason : Blood Pressure : */* mmHG Vent. Rate : 72 BPM Atrial Rate : 72 BPM P-R Int : 188 ms QRS Dur : 130 ms QT Int : 444 ms P-R-T Axes : 74 32 -11 degrees QTcB Int : 486 ms Normal sinus rhythm Non-specific intra-ventricular conduction block T wave abnormality, consider inferior ischemia T wave abnormality, consider anterolateral ischemia Abnormal ECG When compared with ECG of 24-Apr-2024 14:21, Sinus rhythm has replaced Atrial fibrillation Confirmed by Raul Miller ([id number]) on 11/03/2024 1:10:41 PM Referred By: Marine chino [facility] Confirmed By: Raul Miller
[2024-11-03] MEDS: SODIUM CHLORIDE 0.9% 1,000 ML IV SCH (14:23)
[2024-11-03] MEDS: INSULIN ASPART PER UNIT CHARGE SC SCH (16:21)
[2024-11-03] MEDS: metroNIDAZOLE 500 MG/100 ML BAG IV SCH (18:34)
[2024-11-03] MEDS ORDERED: Nursing to Pharmacy Communication SCH (20:15)
[2024-11-03] MEDS: MELATONIN 3 MG TAB PO SCH (20:59)
[2024-11-03] MEDS: guaiFENesin 600 MG TABCR PO SCH (20:59)
[2024-11-03] MEDS: FLECAINIDE ACETATE 100 MG TABLET PO SCH (20:59)
[2024-11-03] MEDS: METOPROLOL TARTRATE 25 MG TAB PO SCH (21:00)
[2024-11-03] MEDS ORDERED: MELATONIN 3 MG TAB PO PRN (21:00)
[2024-11-03] MEDS: GABAPENTIN 300 MG CAP PO SCH (21:00)
[2024-11-03] MEDS: APIXABAN 5 MG TABLET PO SCH (21:00)
[2024-11-03] MEDS: DOCUSATE SODIUM 100 MG CAP PO SCH (21:03)
[2024-11-04] MEDS: INSULIN ASPART PER UNIT CHARGE SC SCH ×2 (00:35→17:25)
[2024-11-04 06:37] LABS: Hematocrit (blood only) 31.6 % (37.0-47.0); Hemoglobin 10.3 g/dl (12.0-16.0); Immature Granulocytes # (auto) 0.06 K/uL (0.01-0.20); Immature Granulocytes % (auto) 0.5 %; Mean Corpuscular Hemoglobin 29.3 pg (25.0-34.0); Mean Corpuscular Volume 89.8 fL (80.0-100.0); Platelet Count 417 K/uL (130-400); RDW Standard Deviation 53.3 fL (36.4-46.3); Red Blood Count 3.52 M/uL (4.20-5.40); White Blood Count 11.04 K/ul (4.8-10.8)
[2024-11-04 07:06] LABS: Alanine Aminotransferase 3.0 U/L (7-52); Albumin Globulin Ratio 0.8 (0.9-2); Alkaline Phosphatase 69.0 U/L (34-104); Anion Gap 6.0 (3-11); Bilirubin,Total 0.3 mg/dl (0.2-1.0); Blood Urea Nitrogen 17.0 mg/dl (6-23); Calcium 8.2 mg/dl (8.6-10.3); Carbon Dioxide 27.0 mmol/L (21-32); Chloride 106.0 mmol/L (98-107); Creatinine Clr Calc Pharmacy 125.5 ml/min; Globulin 3.2 gm/dl (2.5-4.0); Glucose 110.0 mg/dl (70-99(Fasting)); Magnesium 1.9 mg/dl (1.7-2.4); Potassium 4.3 mmol/L (3.5-5.1); Sodium 139.0 mmol/L (136-145); Total Protein 5.8 gm/dl (6.0-8.3)
[2024-11-04 07:07] LABS: Hemoglobin A1C 6.5 % (4.5-5.6)
[2024-11-04] MEDS: EZETIMIBE 10 MG TAB PO SCH (08:55)
[2024-11-04] MEDS: ESCITALOPRAM OXALATE 10 MG TAB PO SCH (08:56)
[2024-11-04] MEDS: POLYETHYLENE (MIRALAX) 17 GM PACK PO SCH (08:58)
[2024-11-04] MEDS: predniSONE 20 MG TAB PO SCH (08:58)
[2024-11-04] MEDS ORDERED: ADVANCED PROBIOTIC 625 MG CAPSULE PO SCH (09:00)
[2024-11-04] MEDS: LACTATED RINGER'S 1,000 ML IV SCH (09:37)
[2024-11-04] MEDS: PIPERACILLIN/TAZOBACTAM 4.5 GM/100 ML BAG IV SCH ×2 (11:19→15:13)
--- NOTE | 2024-11-04 15:27 | Hospitalist Progress Note ---
Date of Service November 04, 2024 Assessment & Plan (1) Acute hypoxemic respiratory failure: (2) Aspiration pneumonia: (3) Enterovirus infection: (4) Complicated UTI (urinary tract infection): (5) Chronic indwelling Lenz catheter: (6) Hypomagnesemia: (7) Type 2 diabetes mellitus without complication: (8) Atrial fibrillation: (9) On anticoagulant therapy: Plan This is a 74-year-old female who has significant past medical history of atrial fibrillation anticoagulated on Eliquis, T2DM, diabetic neuropathy, HTN, HLD, gouty arthropathy, history of left MCA CVA with right hemiparesis, dysphagia and aphasia, chronic RBBB, history of amputation of toe on left foot, history of breast cancer and depression with anxiety who presents to ED due to concerns for pneumonia from assisted facility. #Acute hypoxemic respiratory failure #Aspiration Pneumonia in setting of witness Aspiration event at SNF (10/30 choked on grilled cheese) #Entero/Rhinovirus positive (had viral URI sx since 10/27) -patient has aspiration CAP on the right side on imaging with cough and leukocytosis -on 6L NC -MRSA swab negative Plan: -speech consulted, appreciate recs -NPO for now until formal speech evaluation -continue maintenance fluids -switch to zosyn -continue IS, start flutter valve, start chest vest (given hemiparesis) -muccinex, sputum culture, incentive spirometry, flonase -stop methylprednisolone, continue prednisone (in setting of severe CAP) #CA- UTI -chronic lenz, recurrent UTI, follows [facility] [place] -previous cultures grew kleb, e coli and proteus -continue zosyn #Hypomagnesemia -replace, mag 1.6, 2g mag sulfate ordered in ED #T2DM obtain a1c in a.m., hold metformin lantus/novolog per protocol chronic, stable #PAF on exterminator eliquis -continue eliquis, metoprolol and flecanine -pt rate/rhythm controlled #Hx of L MCA CVA with residual aphasia, dysphagia and RHP -on eliquis and repatha - states repatha due 11/03 on day of admission; however recommend pt hold until acute illness improved -can resume when return to SNF I spent a total of 50 minutes in direct patient care, including [id number] time with the patient and/or family, reviewing medical records, ordering and reviewing diagnostic tests, and coordinating care with other healthcare providers. This time includes: history taking, physical examination, medical decision making, counseling, ECG interpretation, imaging interpretation, lab interpretation, orders, and education, excluding time spent in the performance of separately billed services. Admission and Anticipated Discharge Date Admission Date: November 03, 2024 Subjective Patient seen and examined at bedside. Discussed case with at bedside. Patient is poor historian due to prior right hemiparesis and prior left MCA s troke. Patient is comfortable at this time. Review of Systems Review of Systems: -unable to ask full ROS due to chronic d isability Physical Exam Physical Exam: Gen: A&O 3 NAD HEENT: NCAT, EOMI, not icteric. External ears normal. No rhinorrhea. Moist mucous membranes. Neck: Supple, full range of motion, no observable masses, No meningeal sign. Lungs: severe rhonchi in right lung CV: RRR, no edema. Abdomen: Soft, nondistended, No rebound tenderness. MSK: No joint swelling, no redness. Skin: No rashes, petechiae, lesions. Normal color per patient. Neuro: right hemiparesis is chronic, expressive aphasia Psych: Appropriate for situation. Results & Data Results & Data Vital Signs (Past 12 Hours) Vital Signs Temp Pulse Pulse Resp BP Pulse Ox O2 Del Method 11/04/24 14:18 59 L 11/04/24 11:40 37 C 54 L 20 102/56 L 94 Oxymask 11/04/24 11:37 52 L 11/04/24 09:00 67 120/75 11/04/24 07:50 Oxymask 11/04/24 07:38 36.6 C 57 L 20 114/59 L 97 Oxymask O2 Flow Rate 11/04/24 14:18 11/04/24 11:40 6 11/04/24 11:37 11/04/24 09:00 11/04/24 07:50 7 11/04/24 07:38 7 Laboratory Results -personally reviewed, elevated leukocytosis, creatinine at baseline Medications Administered Allopurinol (Allopurinol 300 Mg Tab) 450 mg PO DAILY [facility] Stop: 12/04/24 08:59 Last Admin: 11/04/24 08:50 Dose: 450 mg Documented By: OO Apixaban (Apixaban 5 Mg Tablet) 5 mg PO BID [facility] Stop: 12/03/24 20:59 Last Admin: 11/04/24 08:53 Dose: 5 mg Documented By: Admin: 11/03/24 21:00 Dose: 5 mg Documented By: VK Diclofenac Sodium (Diclofenac Sod 1% Gel 100 Gm Tube) 2 gm EXT QID [facility]; Protocol Stop: 12/03/24 12:59 Last Admin: 11/04/24 12:20 Dose: 2 gm Documented By: Admin: 11/04/24 09:01 Dose: 2 gm Documented By: Admin: 11/03/24 20:58 Dose: 2 gm Documented By: Admin: 11/03/24 16:21 Dose: 2 gm Documented By: Admin: 11/03/24 12:51 Dose: 2 gm Documented By: OO Docusate Sodium (Docusate Sodium 100 Mg Cap) 100 mg PO BID [facility] Stop: 12/03/24 20:59 Last Admin: 11/04/24 08:49 Dose: 100 mg Documented By: Admin: 11/03/24 21:03 Dose: Not Given Documented By: VK Ezetimibe (Ezetimibe 10 Mg Tab) 10 mg PO DAILY [facility] Stop: 12/04/24 08:59 Last Admin: 11/04/24 08:55 Dose: 10 mg Documented By: OO Escitalopram Oxalate (Escitalopram Oxalate 10 Mg Tab) 10 mg PO DAILY [facility] Stop: 12/04/24 08:59 Last Admin: 11/04/24 08:56 Dose: 10 mg Documented By: OJennifer Flecainide Acetate (Flecainide Acetate 100 Mg Tablet) 100 mg PO BID [facility] Stop: 12/03/24 20:59 Last Admin: 11/04/24 08:55 Dose: 100 mg Documented By: Admin: 11/03/24 20:59 Dose: 100 mg Documented By: VK Fluticasone Propionate (Fluticasone Propionate Na Spr 16 Gm Btl) 2 sprays NA DAILY [facility] Stop: 12/03/24 12:59 Last Admin: 11/04/24 09:01 Dose: 2 sprays Documented By: Admin: 11/03/24 12:51 Dose: 2 sprays Documented By: JenniferO Gabapentin (Gabapentin 300 Mg Cap) 300 mg PO HS [facility] Stop: 12/03/24 20:59 Last Admin: 11/03/24 21:00 Dose: 300 mg Documented By: VK Guaifenesin (Guaifenesin 600 Mg Tabcr) 1,200 mg PO Q12 [facility] Stop: 12/03/24 20:59 Last Admin: 11/04/24 08:52 Dose: 1,200 mg Documented By: Admin: 11/03/24 20:59 Dose: 1,200 mg Documented By: VK Piperacillin Sod/Tazobactam Sod (Zosyn) 4.5 gm in 100 mls @ 25 mls/hr IV Q8H [facility]; Protocol Stop: 11/09/24 13:59 Last Admin: 11/04/24 15:13 Dose: 25 mls/hr Documented By: OO Lactated Ringer's (Lr) 1,000 mls @ 80 mls/hr IV .[id number] [facility] Stop: 11/05/24 00:00 Last Admin: 11/04/24 09:37 Dose: 80 mls/hr Documented By: OO Insulin Aspart (Insulin Aspart Per Unit Charge) 0 units SC Q6 [facility] Stop: 12/04/24 00:00 Last Admin: 11/04/24 12:19 Dose: 1 units Documented By: KRISTINE Co-signed By: TODD Admin: 11/04/24 05:20 Dose: Not Given Documented By: Admin: 11/04/24 00:35 Dose: 1 units Documented By: ELIO Co-signed By: SHARDA Melatonin (Melatonin 3 Mg Tab) 3 mg PO [facility] Stop: 12/03/24 20:59 Last Admin: 11/03/24 20:59 Dose: 3 mg Documented By: VK Metoprolol Tartrate (Metoprolol Tartrate 25 Mg Tab) 25 mg PO BID [facility] Stop: 12/03/24 20:59 Last Admin: 11/04/24 08:57 Dose: 25 mg Documented By: Admin: 11/03/24 21:00 Dose: 25 mg Documented By: VK Pantoprazole Sodium (Pantoprazole 40 Mg Tab) 40 mg PO DAILY [facility] Stop: 12/04/24 08:59 Last Admin: 11/04/24 08:56 Dose: 40 mg Documented By: OO Polyethylene Glycol (Polyethylene (Miralax) 17 Gm Pack) 17 gm PO DAILY [facility] Stop: 12/04/24 08:59 Last Admin: 11/04/24 08:58 Dose: 17 gm Documented By: JenniferO Prednisone (Prednisone 20 Mg Tab) 40 mg PO DAILY [facility] Stop: 12/08/24 08:59 Last Admin: 11/04/24 08:58 Dose: 40 mg Documented By: KRISTINE (7) Type 2 diabetes mellitus without complication Diabetes mellitus residential insulin use: without exterminator use Qualified Code(s): E11.9 - Type 2 diabetes mellitus without complications
[2024-11-04] MEDS: OPTIRAY 320 100ml IV ONE (20:46)
--- NOTE | 2024-11-04 23:01 | CT Scan Report ---
Exam(s): CT CHEST With Contrast IV Amt: 89 ml optiray 320 EXAM: CT Chest With Intravenous Contrast CLINICAL HISTORY: Reason for exam: significant hypoxia for relatively small CAP x-ray. TECHNIQUE: Axial computed tomography images of the chest with intravenous contrast. CTDI is 33.7 mGy and DLP is 1160.7 mGy-cm. Automated exposure control was utilized for the study. A dose lowering technique was utilized adhering to the principles of ALARA. CONTRAST: Patient received 89 ml optiray 320 of IV contrast COMPARISON: 09/22/2017. FINDINGS: Lungs: There are bilateral lower lobe areas of consolidation. There are small patchy areas of groundglass infiltrate in the right upper lobe. Pleural space: There are small bilateral pleural effusions.. No pneumothorax. Heart: The heart is enlarged. Bones/joints: There is a scoliosis of the spine with degenerative changes.. Soft tissues: There are postoperative changes in the right breast. There is a left breast implant noted.. Vasculature: There are atherosclerotic changes. Again noted, there is a 4.2 cm aneurysm noted of the ascending aorta.. Lymph nodes: No enlarged lymph nodes. IMPRESSION: There are bilateral lower lobe areas of consolidation with small bilateral pleural effusions.. There are small patchy areas of groundglass infiltrate in the right upper lobe. Electronically signed by: Timi Santos MD 11/04/24 23:00 PM
[2024-11-05 07:17] LABS: Hematocrit (blood only) 33.0 % (37.0-47.0); Hemoglobin 10.7 g/dl (12.0-16.0); Mean Corpuscular Hemoglobin 29.3 pg (25.0-34.0); Mean Corpuscular Volume 90.4 fL (80.0-100.0); Platelet Count 475 K/uL (130-400); RDW Standard Deviation 53.6 fL (36.4-46.3); Red Blood Count 3.65 M/uL (4.20-5.40); White Blood Count 11.99 K/ul (4.8-10.8)
[2024-11-05 07:26] LABS: Anion Gap 8.0 (3-11); Calcium 8.2 mg/dl (8.6-10.3); Carbon Dioxide 25.0 mmol/L (21-32); Chloride 107.0 mmol/L (98-107); Magnesium 1.6 mg/dl (1.7-2.4); Potassium 4.0 mmol/L (3.5-5.1); Sodium 140.0 mmol/L (136-145)
[2024-11-05 07:32] LABS: Blood Urea Nitrogen 17.0 mg/dl (6-23); Creatinine Clr Calc Pharmacy 107.3 ml/min; Glucose 106.0 mg/dl (70-99(Fasting))
[2024-11-05 08:30] LABS: HCO3 ABG 28 mmol/L (19-24); Oxygen Saturation ABG 91.4 % (90-95); PCO2 ABG 38 mmHg (35-46); PO2 ABG 60 mmHg (80-95)
[2024-11-05] MEDS: FUROSEMIDE INJ 20 MG/2 ML VIAL IV SCH (09:16)
[2024-11-05 09:44] LABS: Allen Test Pos (Pos)
--- NOTE | 2024-11-05 15:17 | Fluoroscopy Report ---
FL video swallow CLINICAL HISTORY: r/o aspiration. TECHNIQUE: Video fluoroscopic evaluation of swallowing was performed in the AP and lateral projection s by the speech pathology staff. The patient is fed nectar-thick and thin liquid barium, a barium coa rosalind wafer, and barium pudding. FLUOROSCOPY TIME: 1 minute 22 seconds. COMPARISON: None FINDINGS: There is mild intermittent penetration with liquids. No aspiration seen with any barium con sistency. IMPRESSION: No aspiration seen. ACT 112: Negative or not required by law. Electronically signed by: Miguel Duarte M.D. 11/05/2024 3:16 PM
--- NOTE | 2024-11-05 16:44 | Hospitalist Progress Note ---
Date of Service November 05, 2024 Assessment & Plan (1) Acute hypoxemic respiratory failure: (2) Aspiration pneumonia: (3) Enterovirus infection: (4) Complicated UTI (urinary tract infection): (5) Chronic indwelling Lenz catheter: (6) Hypomagnesemia: (7) Type 2 diabetes mellitus without complication: (8) Atrial fibrillation: (9) On anticoagulant therapy: Plan This is a 74-year-old female who has significant past medical history of atrial fibrillation anticoagulated on Eliquis, T2DM, diabetic neuropathy, HTN, HLD, gouty arthropathy, history of left MCA CVA with right hemiparesis, dysphagia and aphasia, chronic RBBB, history of amputation of toe on left foot, history of breast cancer and depression with anxiety who presents to ED due to concerns for pneumonia from [facility] facility. #Acute hypoxemic respiratory failure #Aspiration Pneumonia in setting of witness Aspiration event at SNF (10/30 choked on grilled cheese) #Entero/Rhinovirus positive (had viral URI sx since 10/27) #Bilateral Lung Atelectasis -patient has aspiration CAP on the right side on imaging with cough and leukocytosis -on high flow NC -had aspiration event on Friday requiring Heimlich manouver -MRSA swab negative, ABG reassuring -CT scan personally revealed reveals bilateral small pleural effusions, bilateral atelectasis and HAP Plan: -speech consulted, appreciate recs -start 20 IV bid lasix, aggressive bronchopulm hygiene -start deep suctioning given poor cough effort --continue IS, start flutter valve, continue chest vest (given hemiparesis) -continue zosyn -muccinex, sputum culture, incentive spirometry, flonase -continue prednisone (in setting of severe CAP) -check echo given bilateral pleural effusions -if no improvement by tomorrow will consider pulmonology consultation #CA- UTI -chronic lenz, recurrent UTI, follows [facility] [place] -previous cultures grew kleb, e coli and proteus -continue zosyn #Hypomagnesemia -replenished #T2DM -obtain a1c in a.m., hold metformin -lantus/novolog per protocol -chronic, stable #PAF on body component engineer eliquis -continue eliquis, metoprolol and flecanine -pt rate/rhythm controlled #Hx of L MCA CVA with residual aphasia, dysphagia and RHP -on eliquis and repatha - states repatha due 11/03 on day of admission; however recommend pt hold until acute illness improved -can resume when return to SNF I spent a total of 55 minutes in direct patient care, including [id number]-uh-[id number] time with the patient and/or family, reviewing medical records, ordering and reviewing diagnostic tests, and coordinating care with other healthcare providers. This time includes: history taking, physical examination, medical decision making, counseling, ECG interpretation, imaging interpretation, lab interpretation, orders, and education, excluding time spent in the performance of separately billed services. Admission and Anticipated Discharge Date Admission Date: November 03, 2024 Subjective Patient seen and examined at bedside. Daughter present as well. Patient is comfortable this morning, on quite a bit of oxygen at this time. Review of Systems Review of Systems: -unable to ask full ROS due to chronic d isability Physical Exam Physical Exam: Gen: A&O 3 NAD HEENT: NCAT, EOMI, not icteric. External ears normal. No rhinorrhea. Moist mucous membranes. Neck: Supple, full range of motion, no observable masses, No meningeal sign. Lungs: severe rhonchi in right lung, same as prior CV: RRR, no edema. Abdomen: Soft, nondistended, No rebound tenderness. MSK: No joint swelling, no redness. Skin: No rashes, petechiae, lesions. Normal color per patient. Neuro: right hemiparesis is chronic, expressive aphasia Psych: Appropriate for situation. Results & Data Results & Data Vital Signs (Past 12 Hours) Vital Signs Temp Pulse Pulse Resp BP BP Pulse Ox 11/05/24 16:10 36.9 C 68 22 152/72 H 90 11/05/24 13:45 60 11/05/24 12:37 67 11/05/24 11:27 36.6 C 56 L 20 110/57 L 94 11/05/24 11:23 95 11/05/24 09:10 64 132/71 90 11/05/24 08:19 36.6 C 61 24 115/63 90 11/05/24 07:10 11/05/24 05:55 92 11/05/24 05:50 70 L O2 Del Method O2 Flow Rate 11/05/24 16:10 High Flow Nasal Cannula 11/05/24 13:45 11/05/24 12:37 11/05/24 11:27 High Flow Nasal Cannula 6 11/05/24 11:23 High Flow Nasal Cannula 6 11/05/24 09:10 High Flow Nasal Cannula 8 11/05/24 08:19 Nasal Cannula 8 11/05/24 07:10 High Flow Nasal Cannula 8 11/05/24 05:55 High Flow Nasal Cannula 8 11/05/24 05:50 High Flow Nasal Cannula 5 Laboratory Results -personally reviewed, uptrending leukocytosis, Hgb stable, creatinine at baseline, Mg of 1.6 and replenished Medications Administered Allopurinol (Allopurinol 300 Mg Tab) 450 mg PO DAILY [facility] Stop: 12/04/24 08:59 Last Admin: 11/05/24 09:09 Dose: 450 mg Documented By: Admin: 11/04/24 08:50 Dose: 450 mg Documented By: KRISTINE Apixaban (Apixaban 5 Mg Tablet) 5 mg PO BID [facility] Stop: 12/03/24 20:59 Last Admin: 11/05/24 09:13 Dose: 5 mg Documented By: Admin: 11/04/24 21:05 Dose: 5 mg Documented By: Admin: 11/04/24 08:53 Dose: 5 mg Documented By: Admin: 11/03/24 21:00 Dose: 5 mg Documented By: ELIO Diclofenac Sodium (Diclofenac Sod 1% Gel 100 Gm Tube) 2 gm EXT QID [facility]; Protocol Stop: 12/03/24 12:59 Last Admin: 11/05/24 12:26 Dose: 2 gm Documented By: Admin: 11/05/24 09:14 Dose: 2 gm Documented By: Admin: 11/04/24 21:03 Dose: 2 gm Documented By: Admin: 11/04/24 16:33 Dose: 2 gm Documented By: OJennifer Admin: 11/04/24 12:20 Dose: 2 gm Documented By: OJennifer Admin: 11/04/24 09:01 Dose: 2 gm Documented By: Admin: 11/03/24 20:58 Dose: 2 gm Documented By: Admin: 11/03/24 16:21 Dose: 2 gm Documented By: Admin: 11/03/24 12:51 Dose: 2 gm Documented By: KRISTINE Docusate Sodium (Docusate Sodium 100 Mg Cap) 100 mg PO BID [facility] Stop: 12/03/24 20:59 Last Admin: 11/05/24 09:07 Dose: 100 mg Documented By: OJennifer Admin: 11/04/24 21:05 Dose: Not Given Documented By: Admin: 11/04/24 08:49 Dose: 100 mg Documented By: OJennifer Admin: 11/03/24 21:03 Dose: Not Given Documented By: ELIO Ezetimibe (Ezetimibe 10 Mg Tab) 10 mg PO DAILY [facility] Stop: 12/04/24 08:59 Last Admin: 11/05/24 09:12 Dose: 10 mg Documented By: Admin: 11/04/24 08:55 Dose: 10 mg Documented By: KRISTINE Escitalopram Oxalate (Escitalopram Oxalate 10 Mg Tab) 10 mg PO DAILY [facility] Stop: 12/04/24 08:59 Last Admin: 11/05/24 09:19 Dose: 10 mg Documented By: OJennifer Admin: 11/04/24 08:56 Dose: 10 mg Documented By: KRISTINE Flecainide Acetate (Flecainide Acetate 100 Mg Tablet) 100 mg PO BID [facility] Stop: 12/03/24 20:59 Last Admin: 11/05/24 09:11 Dose: 100 mg Documented By: OJennifer Admin: 11/04/24 21:04 Dose: 100 mg Documented By: Admin: 11/04/24 08:55 Dose: 100 mg Documented By: OJennifer Admin: 11/03/24 20:59 Dose: 100 mg Documented By: ELIO Fluticasone Propionate (Fluticasone Propionate Na Spr 16 Gm Btl) 2 sprays NA DAILY [facility] Stop: 12/03/24 12:59 Last Admin: 11/05/24 09:14 Dose: 2 sprays Documented By: OJennifer Admin: 11/04/24 09:01 Dose: 2 sprays Documented By: OJennifer Admin: 11/03/24 12:51 Dose: 2 sprays Documented By: KRISTINE Furosemide (Furosemide Inj 20 Mg/2 Ml Vial) 20 mg IV BID17 [facility] Stop: 12/05/24 08:59 Last Admin: 11/05/24 09:16 Dose: 20 mg Documented By: KRISTINE Gabapentin (Gabapentin 300 Mg Cap) 300 mg PO HS [facility] Stop: 12/03/24 20:59 Last Admin: 11/04/24 21:05 Dose: 300 mg Documented By: Admin: 11/03/24 21:00 Dose: 300 mg Documented By: VK Guaifenesin (Guaifenesin 600 Mg Tabcr) 1,200 mg PO Q12 [facility] Stop: 12/03/24 20:59 Last Admin: 11/05/24 09:08 Dose: 1,200 mg Documented By: Admin: 11/04/24 21:04 Dose: 1,200 mg Documented By: Admin: 11/04/24 08:52 Dose: 1,200 mg Documented By: Admin: 11/03/24 20:59 Dose: 1,200 mg Documented By: VK Piperacillin Sod/Tazobactam Sod (Zosyn) 4.5 gm in 100 mls @ 25 mls/hr IV Q8H [facility]; Protocol Stop: 11/09/24 13:59 Last Admin: 11/05/24 15:11 Dose: 25 mls/hr Documented By: OJennifer Infusion: 11/05/24 09:29 Dose: Infused Documented By: Admin: 11/05/24 05:16 Dose: 25 mls/hr Documented By: Infusion: 11/05/24 01:22 Dose: Infused Documented By: Admin: 11/04/24 21:22 Dose: 25 mls/hr Documented By: Infusion: 11/04/24 19:13 Dose: Infused Documented By: Admin: 11/04/24 15:13 Dose: 25 mls/hr Documented By: OO Insulin Aspart (Insulin Aspart Per Unit Charge) 0 units SC ACHS [facility] Stop: 12/04/24 16:44 Last Admin: 11/05/24 12:25 Dose: 3 units Documented By: OO Co-signed By: MTP Admin: 11/05/24 08:36 Dose: Not Given Documented By: Admin: 11/04/24 21:14 Dose: 2 units Documented By: VK Co-signed By: TMG Admin: 11/04/24 17:25 Dose: 5 units Documented By: OO Co-signed By: LMP Melatonin (Melatonin 3 Mg Tab) 3 mg PO HS [facility] Stop: 12/03/24 20:59 Last Admin: 11/04/24 21:04 Dose: 3 mg Documented By: Admin: 11/03/24 20:59 Dose: 3 mg Documented By: VK Metoprolol Tartrate (Metoprolol Tartrate 25 Mg Tab) 25 mg PO BID [facility] Stop: 12/03/24 20:59 Last Admin: 11/05/24 09:13 Dose: 25 mg Documented By: Admin: 11/04/24 21:03 Dose: Not Given Documented By: Admin: 11/04/24 08:57 Dose: 25 mg Documented By: Admin: 11/03/24 21:00 Dose: 25 mg Documented By: ELIO Pantoprazole Sodium (Pantoprazole 40 Mg Tab) 40 mg PO DAILY [facility] Stop: 12/04/24 08:59 Last Admin: 11/05/24 09:12 Dose: 40 mg Documented By: Admin: 11/04/24 08:56 Dose: 40 mg Documented By: KRISTINE Polyethylene Glycol (Polyethylene (Miralax) 17 Gm Pack) 17 gm PO DAILY [facility] Stop: 12/04/24 08:59 Last Admin: 11/05/24 09:16 Dose: Not Given Documented By: Admin: 11/04/24 08:58 Dose: 17 gm Documented By: OJennifer Prednisone (Prednisone 20 Mg Tab) 40 mg PO DAILY [facility] Stop: 12/08/24 08:59 Last Admin: 11/05/24 09:15 Dose: 40 mg Documented By: Admin: 11/04/24 08:58 Dose: 40 mg Documented By: KRISTINE (7) Type 2 diabetes mellitus without complication Diabetes mellitus body component engineer insulin use: without body component engineer use Qualified Code(s): E11.9 - Type 2 diabetes mellitus without complications
[2024-11-05] MEDS: MAGNESIUM SULFATE / D5W 1 GM/100 ML BAG IV SCH (17:13)
[2024-11-05] MEDS: CALCIUM GLUCONATE 1,000 MG/60 ML BAG IV ONE (18:00)
[2024-11-05 21:47] LABS: HCO3 ABG 29 mmol/L (19-24); Oxygen Saturation ABG 99.1 % (90-95); PCO2 ABG 41 mmHg (35-46); PO2 ABG 114 mmHg (80-95)
[2024-11-05 21:50] LABS: Allen Test Pos (Pos)
[2024-11-06 06:08] LABS: Hematocrit (blood only) 32.4 % (37.0-47.0); Hemoglobin 10.7 g/dl (12.0-16.0); Mean Corpuscular Hemoglobin 29.2 pg (25.0-34.0); Mean Corpuscular Volume 88.5 fL (80.0-100.0); Platelet Count 505 K/uL (130-400); RDW Standard Deviation 52.4 fL (36.4-46.3); Red Blood Count 3.66 M/uL (4.20-5.40); White Blood Count 9.55 K/ul (4.8-10.8)
[2024-11-06 06:36] LABS: Anion Gap 7.0 (3-11); Blood Urea Nitrogen 15.0 mg/dl (6-23); Calcium 8.1 mg/dl (8.6-10.3); Carbon Dioxide 30.0 mmol/L (21-32); Chloride 103.0 mmol/L (98-107); Creatinine Clr Calc Pharmacy 98.9 ml/min; Glucose 114.0 mg/dl (70-99(Fasting)); Potassium 3.2 mmol/L (3.5-5.1); Sodium 140.0 mmol/L (136-145)
[2024-11-06] MEDS: ALBUTEROL 0.083% NEBU SOLN 3 ML VIAL NEB PRN (07:41)
--- NOTE | 2024-11-06 08:18 | XRay Report ---
Clinical History: Worsening hypoxia Technique: 2 frontal views of the chest were obtained Comparison is made with the prior examination dated 11/03/2024 Findings: There are bilateral lower lobe hazy opacities, concerning for pneumonia. The heart size is at the upper limit of normal. No definite pleural effusion or pneumothorax is seen. There is no definite pulmonary nodule. No fracture is noted. There is thoracic scoliosis and degenerative disc disease Impression: Suspected bilateral lower lobe pneumonia ACT 112: Positive. There are findings on this exam that require communication between the performing entity and the patient following Patient Test Result Information Act ([place] ACT 112) guidelines. Electronically signed by Sarabjit Irving 11-06-2024 08:17 AM
[2024-11-06] MEDS: POTASSIUM CHLORIDE CRTAB 20 MEQ TABCR PO STA (08:51)
--- NOTE | 2024-11-06 08:53 | Pulmonology Progress Note ---
Date of Service November 06, 2024 Assessment & Plan (1) Mucus plugging of bronchi: (2) Atelectasis: (3) Acute hypoxemic respiratory failure: Admission and Anticipated Discharge Date Admission Date: November 03, 2024 Review of Systems Review of Systems: Please refer to hospitalist notes. No additions or deletions Physical Exam Constitutional: + obese; no acute distress Neck: trachea midline, no thyromegaly Respiratory: no respiratory distress, no labored breathing, no cough and not tachypneic Auscultation: + diminished lung sounds; no wheezes Cardiovascular: RRR, no murmur, no edema Gastrointestinal (Abdomen): normal bowel sounds, soft, nontender, no hepatosplenomegaly Musculoskeletal: Extremities: extremities normal to inspection Skin: no rashes, warm and dry Neurologic: Nonfocal exam Lymphatic: no cervical lymphadenopathy Results & Data Results & Data Vital Signs (Past 12 Hours) Vital Signs Temp Pulse Pulse Resp BP Pulse Ox O2 Del Method 11/06/24 08:28 37.0 C 63 20 120/59 L 95 Nasal Cannula 11/06/24 07:48 60 22 95 Nasal Cannula 11/06/24 04:18 36.5 C 59 L 20 112/69 93 BiPAP 11/06/24 03:54 74 21 96 11/05/24 23:05 36.5 C 63 21 128/62 98 BiPAP 11/05/24 21:39 62 11/05/24 21:27 64 33 H 92 O2 Flow Rate FiO2 11/06/24 08:28 15.0 11/06/24 07:48 14 11/06/24 04:18 11/06/24 03:54 40 11/05/24 23:05 11/05/24 21:39 11/05/24 21:27 60 Critical Care Results & Data Vital Signs (Past 12 Hours) Vital Signs Temp Pulse Pulse Resp BP Pulse Ox O2 Del Method 11/06/24 08:28 37.0 C 63 20 120/59 L 95 Nasal Cannula 11/06/24 07:48 60 22 95 Nasal Cannula 11/06/24 04:18 36.5 C 59 L 20 112/69 93 BiPAP 11/06/24 03:54 74 21 96 11/05/24 23:05 36.5 C 63 21 128/62 98 BiPAP 11/05/24 21:39 62 11/05/24 21:27 64 33 H 92 O2 Flow Rate FiO2 11/06/24 08:28 15.0 11/06/24 07:48 14 11/06/24 04:18 11/06/24 03:54 40 11/05/24 23:05 11/05/24 21:39 11/05/24 21:27 60 Lab & Micro Results (Past 24 Hours) RBC 3.66 M/uL (4.20-5.40) L 11/06/24 WBC 9.55 K/ul (4.8-10.8) 11/06/24 Hgb 10.7 g/dl (12.0-16.0) L 11/06/24 Hct 32.4 % (37.0-47.0) L 11/06/24 MCV 88.5 fL (80.0-100.0) 11/06/24 MCH 29.2 pg (25.0-34.0) 11/06/24 MCHC 33.0 g/dL (32.0-36.0) 11/06/24 RDW Standard Deviation 52.4 fL (36.4-46.3) H 11/06/24 RDW Coefficient of Variation 16.0 % (11.5-14.5) H 11/06/24 Plt Count 505 K/uL (130-400) H 11/06/24 MPV 9.6 fL (9.4-12.4) 11/06/24 Na 140 mmol/L (136-145) 11/06/24 K 3.2 mmol/L (3.5-5.1) L 11/06/24 Cl 103 mmol/L (98-107) 11/06/24 CO2 30 mmol/L (21-32) 11/06/24 Anion Gap 7 (3-11) 11/06/24 BUN 15 mg/dl (6-23) 11/06/24 Creatinine 0.52 mg/dl (0.6-1.2) L 11/06/24 BUN/Creatinine Ratio 28.8 (10-20) H 11/06/24 Glu 114 mg/dl (70-99(Fasting)) H 11/06/24 Ca 8.1 mg/dl (8.6-10.3) L 11/06/24 Calcium Level 8.1 mg/dl (8.6-10.3) L 11/06/24 05:35 Arterial Blood pH 7.46 (7.35-7.45) H 11/05/24 21:40 Arterial Blood Partial Pressure CO2 41 mmHg (35-46) 11/05/24 21 :40 Arterial Blood Partial Pressure O2 114 mmHg (80-95) H 11/05/24 21:40 Arterial Blood HCO3 29 mmol/L (19-24) H 11/05/24 21:40 Arterial Blood Base Excess 4.9 mEq/L (-9-1.8) H 11/05/24 21:40 Arterial Blood Oxygen Saturation 99.1 % (90-95) H 11/05/24 21:4 0 Blood Gas Oxygen Given BIPAP 60% 11/05/24 21:40 Johnny Test Pos (Pos) 11/05/24 21:40 Microbiology 11/03/24 08:05 Urine Culture - Final Urine,Straight Cath Proteus mirabilis Klebsiella pneumoniae ESBL 11/03/24 07:58 Aerobic Blood Culture - Preliminary Blood No growth in Aerobic bottle after 48 hours. Anaerobic Blood Culture - Final 11/03/24 07:58 Aerobic Blood Culture - Preliminary Blood No growth in Aerobic bottle after 48 hours. Anaerobic Blood Culture - Final Diagnostic Findings (Past 24 Hours) Videofluoroscopic Swallow 11/05/24 10:30 FL video swallow CLINICAL HISTORY: r/o aspiration. TECHNIQUE: Video fluoroscopic evaluation of swallowing was performed in the AP and lateral projections by the speech pathology staff. The patient is fed nectar-thick and thin liquid barium, a barium coated wafer, and barium pudding. FLUOROSCOPY TIME: 1 minute 22 seconds. COMPARISON: None FINDINGS: There is mild intermittent penetration with liquids. No aspiration seen with any barium consistency. IMPRESSION: No aspiration seen. ACT 112: Negative or not required by law. Electronically signed by: Miguel Duarte M.D. 11/05/2024 3:16 PM Chest X-Ray 11/06/24 07:32 Clinical History: Worsening hypoxia Technique: 2 frontal views of the chest were obtained Comparison is made with the prior examination dated 11/03/2024 Findings: There are bilateral lower lobe hazy opacities, concerning for pneumonia. The heart size is at the upper limit of normal. No definite pleural effusion or pneumothorax is seen. There is no definite pulmonary nodule. No fracture is noted. There is thoracic scoliosis and degenerative disc disease Impression: Suspected bilateral lower lobe pneumonia ACT 112: Positive. There are findings on this exam that require communication between the performing entity and the patient following Patient Test Result Information Act ([place] ACT 112) guidelines. Electronically signed by Sarabjit Irving 11-06-2024 08:17 AM I & O Totals 24 Hours 11/05/24 11/06/24 11/07/24 06:59 06:59 06:59 Intake Total 2955.167 / 2955.167 920 / 920 Output Total 900 / 900 3385 / 3385 Balance 2055.167 / 2055.167 -2465 / -2465 Cumulative 11/03/24 07:16 thru 11/06/24 05:31 Intake Total 4625.167 Output Total 4610 Balance 15.167 RT Ventilator Mngmt (Last Documented) Ventilator Ordered Settings Respiratory Rate 20 11/06/24 08:28 Fraction of Inspired Oxygen 40 11/06/24 03:54 Ventilator - PT Measurements Respiratory Rate 20 PG Care Time/CCT Total # of Minutes Spent Total Time Spent with Patient: Total time spent is greater than 50% in coordination of care (as documented) at patient's floor/unit and/or counseling patient: Coding Diagnoses Mucus plugging of bronchi T17.500A Atelectasis J98.11 Acute hypoxemic respiratory failure J96.01
[2024-11-06] MEDS: FUROSEMIDE INJ 20 MG/2 ML VIAL IV SCH (09:02)
--- NOTE | 2024-11-06 09:13 | Pulmonary Consultation ---
Date of Consultation November 06, 2024 Assessment & Plan (1) Atelectasis: (2) Mucus plugging of bronchi: (3) Aspiration pneumonia: (4) Enterovirus infection: (5) Acute hypoxemic respiratory failure: Plan Impression: Debilitated 74-year-old female admitted from assisted after aspiration event being treated for pneumonia with persistent hypoxemia. CT scan shows fairly dense lower lobe consolidation/atelectasis which is likely resulting in VQ mismatching and persistent hypoxemia. Recommendations: 1. Patient has been aggressively treated with antibiotics. I suspect her infection has likely cleared and I do not see a need for continued antimicrobial agents. In addition, I do not think the patient warrants steroids as this appears to be mostly atelectasis and VQ mismatch rather than pneumonia. 2. The patient is on aggressive pulmonary toilet. He tried to work with the patient to facilitate cough. Her cough is quite weak and ineffectual and will require continued motivation by nursing. Will try and get her upright and out of bed to the chair to see if this might potentially improve her pulmonary toilet. Will observe over the weekend. She has not a great candidate for bronchoscopy given her oxygen requirement, however should the patient fail to improve over the weekend with persistent atelectatic changes and failure to clear secretions, consideration for bronchoscopy might be appropriate. Will need to discuss with the patient's significant other as this may require intubation and mechanical ventilation which would not be ideal in this patient. 3. Hypoxemic respiratory failure: Continue to wean oxygen to maintain saturations at or above 90% Management of the patient's other medical issues per primary admitting service. Will continue to follow with you. Feel free to contact us with questions or concerns History of Present Illness Attending Physician: Gus Hudson MD History of Present Illness Asked by hospitalist to assist in evaluation management this patient with hypoxemic respiratory failure. History is obtained from discussion with the patient as well as review of the electronic medical record and discussion with the admitting service. The patient is a 74-year-old female who was admitted to the hospital 11/03/2024 from her alf facility with concerns about pneumonia. Patient had an aspiration event at her alf facility 10/30. She is required supplemental oxygen and was febrile which prompted emergency room evaluation. She was seen in the emergency room and was found to be positive for rhinovirus. She received cefepime and Flagyl. Speech therapy evaluation was conducted. Pulmonary was consulted due to persistent hypoxemic respiratory failure. The patient was placed on steroids due to concern about severe pneumonia. She had a CT scan performed which revealed occlusion of the lower lobe bronchi with bilateral lower lobe atelectasis. The patient has been placed on aggressive pulmonary toilet including incentive spirometry, flutter valve, vest therapy, and nebulized therapies but unfortunately her cough is relatively ineffectual. Allergies Allergy/AdvReac Type Severity Reaction Status Date / Time levofloxacin Allergy Severe Rash Verified 09/22/24 14:31 Home Medications Medication Instructions Recorded Confirmed Type bisacodyl 10 mg rectal suppository 10 mg ME DAILY PRN Constipation 04/24/24 11/03/24 History docusate sodium 100 mg capsule 100 mg PO BID 04/24/24 11/03/24 History glucagon HCl 1 mg solution for 1 mg subcut ONCE PRN Hypoglycemia 04/24/24 11/03/24 History injection ondansetron HCl 4 mg tablet 4 mg PO Q4H 04/24/24 11/03/24 History sennosides 8.6 mg-docusate sodium 1 tab-cap PO DAILY PRN Constipation 04/24/24 11/03/24 History 50 mg tablet (Senokot-S) simethicone 80 mg tablet 80 mg PO TID PRN flatulence 04/24/24 11/03/24 History escitalopram oxalate 10 mg tablet 10 mg PO DAILY #30 tabs 05/13/24 11/03/24 Rx (Lexapro) ezetimibe 10 mg tablet 10 mg PO DAILY #30 tabs 05/13/24 11/03/24 Rx L.acidop,casei,lactis,rham-B.lact,jahaira 1 cap PO DAILY 11/03/24 11/03/24 History 625 mg (10 billion cell) capsule (Advanced Probiotic) acetaminophen 325 mg tablet 650 mg PO Q4H PRN Pain 11/03/24 11/03/24 History allopurinol 300 mg tablet 450 mg PO DAILY 11/03/24 11/03/24 History apixaban 5 mg tablet 5 mg PO BID 11/03/24 11/03/24 History baclofen 10 mg tablet 10 mg PO BID PRN spasticity 11/03/24 11/03/24 History cranberry extract 425 mg capsule 425 mg PO DAILY 11/03/24 11/03/24 History d-mannose 500 mg capsule 500 mg PO DAILY 11/03/24 11/03/24 History diclofenac sodium 1 % topical gel 2 g EXT QID 11/03/24 11/03/24 History (Voltaren Arthritis Pain) evolocumab 140 mg/mL subcutaneous 140 mg subcut Q14D 11/03/24 11/03/24 History pen injector (ángelcaroline BallMaritza) flecainide 100 mg tablet 100 mg PO BID 11/03/24 11/03/24 History furosemide 40 mg tablet 40 mg PO DAILY PRN weight gain 11/03/24 11/03/24 History >than 2 lbs gabapentin 300 mg capsule 300 mg PO HS 11/03/24 11/03/24 History guaifenesin 100 mg/5 mL oral liquid 200 mg PO Q4H PRN Cough 11/03/24 11/03/24 History ipratropium 0.5 mg-albuterol 3 mg 3 ml inhalation Q6H PRN 11/03/24 11/03/24 History (2.5 mg base)/3 mL nebulization cough/SOB/wheeze soln lidocaine HCl 2 % topical gel 1 applic topical Q6H PRN urethral 11/03/24 11/03/24 History pain melatonin 3 mg tablet 3 mg PO HS 11/03/24 11/03/24 History metformin 500 mg tablet,extended 1,000 mg PO BID 11/03/24 11/03/24 History release 24 hr metoprolol tartrate 25 mg tablet 25 mg PO BID 11/03/24 11/03/24 History pantoprazole 40 mg tablet,delayed 40 mg PO DAILY 11/03/24 11/03/24 History release polyethylene glycol 3350 17 17 g PO BID 11/03/24 11/03/24 History gram/dose oral powder Patient History Medical History Osteomyelitis of third toe of left foot Fear of needles avoid IV in hand if possible. requests numbing spray if available. On anticoagulant therapy History of cardioversion x 2 Limb alert care status RUE Tubular adenoma of colon Diverticulosis of intestine Surgical History History of toe surgery removal of left middle toe 07/2022 History of lumpectomy of both breasts History of surgery tumor removed from ovary History of tonsillectomy History of hernia surgery History of breast biopsy History of colonoscopy History of total abdominal hysterectomy and bilateral salpingo-oophorectomy History of modified radical mastectomy of both breasts History of hysteroscopy History of dilation and curettage Status post debridement for Necrot Infect with removal of mesh History of breast reconstruction Family History Father Prostate cancer Family/Other Myocardial infarction Denies family history of Ovarian cancer Breast cancer Colorectal cancer Social History Smoking Status: Never smoker Second Hand Exposure: No; Do You Dip or Chew Tobacco: No; Hx Alcohol Use: No Hx Substance Use: No Preferred Language: Wolof Communication Ability: Impaired Communication Ability Comment: Yes or no, shaking head Visual Impairment: No Limitations Hearing Ability: Normal Qc Tech Required: No Beliefs That Will Affect Care: None marital status: Current Living Situation: [facility] current occupational status: 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 How many Children do You have: 2 Other Information That Helps Us Care for You: No Feels Safe at Home: Yes Safety Concerns: Feels Safe At This Time Childhood Exposure to Second-Hand Smoke: No Diet: diabetic caffeine: Yes Dental Care, Regularly: Yes Physical Activity Frequency: Daily Seatbelt Use: always Sunscreen Use: No Assistive Devices: Wheelchair Review of Systems Review of Systems: Please refer to hospitalist admission H&P Physical Exam Constitutional: well nourished and + obese; no acute distress Neck: trachea midline, no thyromegaly Respiratory: no respiratory distress, no labored breathing, no cough and not tachypneic Auscultation: + diminished lung sounds; no wheezes Cardiovascular: RRR, no murmur, no edema Gastrointestinal (Abdomen): normal bowel sounds, soft, nontender, no hepatosplenomegaly Musculoskeletal: Extremities: extremities normal to inspection Skin: no rashes, warm and dry Neurologic: Nonfocal exam Lymphatic: no cervical lymphadenopathy Results & Data Results & Data Vital Signs (Past 12 Hours) Vital Signs Temp Pulse Pulse Resp BP Pulse Ox O2 Del Method 11/06/24 08:28 37.0 C 63 20 120/59 L 95 Nasal Cannula 11/06/24 07:48 60 22 95 Nasal Cannula 11/06/24 04:18 36.5 C 59 L 20 112/69 93 BiPAP 11/06/24 03:54 74 21 96 11/05/24 23:05 36.5 C 63 21 128/62 98 BiPAP 11/05/24 21:39 62 11/05/24 21:27 64 33 H 92 O2 Flow Rate FiO2 11/06/24 08:28 15.0 11/06/24 07:48 14 11/06/24 04:18 11/06/24 03:54 40 11/05/24 23:05 11/05/24 21:39 11/05/24 21:27 60 Critical Care Results & Data Vital Signs (Past 12 Hours) Vital Signs Temp Pulse Pulse Resp BP Pulse Ox O2 Del Method 11/06/24 08:28 37.0 C 63 20 120/59 L 95 Nasal Cannula 11/06/24 07:48 60 22 95 Nasal Cannula 11/06/24 04:18 36.5 C 59 L 20 112/69 93 BiPAP 11/06/24 03:54 74 21 96 11/05/24 23:05 36.5 C 63 21 128/62 98 BiPAP 11/05/24 21:39 62 11/05/24 21:27 64 33 H 92 O2 Flow Rate FiO2 11/06/24 08:28 15.0 11/06/24 07:48 14 11/06/24 04:18 11/06/24 03:54 40 11/05/24 23:05 11/05/24 21:39 11/05/24 21:27 60 Lab & Micro Results (Past 24 Hours) RBC 3.66 M/uL (4.20-5.40) L 11/06/24 WBC 9.55 K/ul (4.8-10.8) 11/06/24 Hgb 10.7 g/dl (12.0-16.0) L 11/06/24 Hct 32.4 % (37.0-47.0) L 11/06/24 MCV 88.5 fL (80.0-100.0) 11/06/24 MCH 29.2 pg (25.0-34.0) 11/06/24 MCHC 33.0 g/dL (32.0-36.0) 11/06/24 RDW Standard Deviation 52.4 fL (36.4-46.3) H 11/06/24 RDW Coefficient of Variation 16.0 % (11.5-14.5) H 11/06/24 Plt Count 505 K/uL (130-400) H 11/06/24 MPV 9.6 fL (9.4-12.4) 11/06/24 Na 140 mmol/L (136-145) 11/06/24 K 3.2 mmol/L (3.5-5.1) L 11/06/24 Cl 103 mmol/L (98-107) 11/06/24 CO2 30 mmol/L (21-32) 11/06/24 Anion Gap 7 (3-11) 11/06/24 BUN 15 mg/dl (6-23) 11/06/24 Creatinine 0.52 mg/dl (0.6-1.2) L 11/06/24 BUN/Creatinine Ratio 28.8 (10-20) H 11/06/24 Glu 114 mg/dl (70-99(Fasting)) H 11/06/24 Ca 8.1 mg/dl (8.6-10.3) L 11/06/24 Calcium Level 8.1 mg/dl (8.6-10.3) L 11/06/24 05:35 Arterial Blood pH 7.46 (7.35-7.45) H 11/05/24 21:40 Arterial Blood Partial Pressure CO2 41 mmHg (35-46) 11/05/24 21 :40 Arterial Blood Partial Pressure O2 114 mmHg (80-95) H 11/05/24 21:40 Arterial Blood HCO3 29 mmol/L (19-24) H 11/05/24 21:40 Arterial Blood Base Excess 4.9 mEq/L (-9-1.8) H 11/05/24 21:40 Arterial Blood Oxygen Saturation 99.1 % (90-95) H 11/05/24 21:4 0 Blood Gas Oxygen Given BIPAP 60% 11/05/24 21:40 Johnny Test Pos (Pos) 11/05/24 21:40 Microbiology 11/03/24 08:05 Urine Culture - Final Urine,Straight Cath Proteus mirabilis Klebsiella pneumoniae ESBL 11/03/24 07:58 Aerobic Blood Culture - Preliminary Blood No growth in Aerobic bottle after 48 hours. Anaerobic Blood Culture - Final 11/03/24 07:58 Aerobic Blood Culture - Preliminary Blood No growth in Aerobic bottle after 48 hours. Anaerobic Blood Culture - Final Diagnostic Findings (Past 24 Hours) Videofluoroscopic Swallow 11/05/24 10:30 FL video swallow CLINICAL HISTORY: r/o aspiration. TECHNIQUE: Video fluoroscopic evaluation of swallowing was performed in the AP and lateral projections by the speech pathology staff. The patient is fed nectar-thick and thin liquid barium, a barium coated wafer, and barium pudding. FLUOROSCOPY TIME: 1 minute 22 seconds. COMPARISON: None FINDINGS: There is mild intermittent penetration with liquids. No aspiration seen with any barium consistency. IMPRESSION: No aspiration seen. ACT 112: Negative or not required by law. Electronically signed by: Miguel Duarte M.D. 11/05/2024 3:16 PM Chest X-Ray 11/06/24 07:32 Clinical History: Worsening hypoxia Technique: 2 frontal views of the chest were obtained Comparison is made with the prior examination dated 11/03/2024 Findings: There are bilateral lower lobe hazy opacities, concerning for pneumonia. The heart size is at the upper limit of normal. No definite pleural effusion or pneumothorax is seen. There is no definite pulmonary nodule. No fracture is noted. There is thoracic scoliosis and degenerative disc disease Impression: Suspected bilateral lower lobe pneumonia ACT 112: Positive. There are findings on this exam that require communication between the performing entity and the patient following Patient Test Result Information Act ([place] ACT 112) guidelines. Electronically signed by Sarabjit Irving 11-06-2024 08:17 AM I & O Totals 24 Hours 11/05/24 11/06/24 11/07/24 06:59 06:59 06:59 Intake Total 2955.167 / 2955.167 920 / 920 Output Total 900 / 900 3385 / 3385 Balance 2055.167 / 2055.167 -2465 / -2465 Cumulative 11/03/24 07:16 thru 11/06/24 05:31 Intake Total 4625.167 Output Total 4610 Balance 15.167 RT Ventilator Mngmt (Last Documented) Ventilator Ordered Settings Respiratory Rate 20 11/06/24 08:28 Fraction of Inspired Oxygen 40 11/06/24 03:54 Ventilator - PT Measurements Respiratory Rate 20 PG Care Time/CCT Total # of Minutes Spent Total Time Spent with Patient: Total time spent is greater than 50% in coordination of care (as documented) at patient's floor/unit and/or counseling patient: Coding Level of Care Code 15446 INT INP/OBS CARE MIN Diagnoses Atelectasis J98.11 Mucus plugging of bronchi T17.500A Aspiration pneumonia J69.0 Enterovirus infection B34.1 Acute hypoxemic respiratory failure J96.01
--- NOTE | 2024-11-06 14:40 | Hospitalist Progress Note ---
Date of Service November 06, 2024 Assessment & Plan (1) Acute hypoxemic respiratory failure: (2) Aspiration pneumonia: (3) Enterovirus infection: (4) Complicated UTI (urinary tract infection): (5) Chronic indwelling Lenz catheter: (6) Hypomagnesemia: (7) Type 2 diabetes mellitus without complication: (8) Atrial fibrillation: (9) On anticoagulant therapy: Plan This is a 74-year-old female who has significant past medical history of atrial fibrillation anticoagulated on Eliquis, T2DM, diabetic neuropathy, HTN, HLD, gouty arthropathy, history of left MCA CVA with right hemiparesis, dysphagia and aphasia, chronic RBBB, history of amputation of toe on left foot, history of breast cancer and depression with anxiety who presents to ED due to [facility]. #Acute hypoxemic respiratory failure #Aspiration Pneumonia in setting of witness Aspiration event at SNF (10/30 choked on grilled cheese) #Entero/Rhinovirus positive (had viral URI sx since 10/27) #Bilateral Lung Atelectasis #Acute Decompensated HFpEF -patient has aspiration CAP on the right side on imaging with cough and leukocytosis -on high flow NC, worsening oxygenation at this time -had aspiration event on Friday requiring Heimlich manouver -MRSA swab negative, ABG reassuring -CT scan personally revealed reveals bilateral small pleural effusions, bilateral atelectasis and HAP -chest xray revealing concern for severe bilateral HAP -echo revealing diastolic dysfunction Plan: -speech consulted, appreciate recs -increase to 40 IV bid lasix, aggressive bronchopulm hygiene -continue deep suctioning given poor cough effort -continue IS, start flutter valve, continue chest vest (given hemiparesis) -continue zosyn, start doxycycline IV -muccinex, sputum culture, incentive spirometry, flonase -continue prednisone (in setting of severe CAP) -check echo given bilateral pleural effusions -pulmonology consult, appreciate recs #CA- UTI -chronic lenz, recurrent UTI, follows [facility] urology -previous cultures grew kleb, e coli and proteus -continue zosyn #Hypomagnesemia -replenished #T2DM -obtain a1c in a.m., hold metformin -lantus/novolog per protocol -chronic, stable #PAF on prison eliquis -continue eliquis, metoprolol and flecanine -pt rate/rhythm controlled #Hx of L MCA CVA with residual aphasia, dysphagia and RHP -on eliquis and repatha - states repatha due 11/03 on day of admission; however recommend pt hold until acute illness improved -can resume when return to SNF I spent a total of 60 minutes in direct patient care, including [id number] time with the patient and/or family, reviewing medical records, ordering and reviewing diagnostic tests, and coordinating care with other healthcare providers. This time includes: history taking, physical examination, medical decision making, counseling, ECG interpretation, imaging interpretation, lab interpretation, orders, and education, excluding time spent in the performance of separately billed services. Admission and Anticipated Discharge Date Admission Date: November 03, 2024 Subjective Patient seen and examined at bedside. Patient feels better, but is objectively oxygenating worse. Discussed serious nature of patients condition with and patient, who were concerned but appreciative of the update. Review of Systems Review of Systems: -unable to ask full ROS due to chronic d isability Physical Exam Physical Exam: Gen: A&O 3 NAD HEENT: NCAT, EOMI, not icteric. External ears normal. No rhinorrhea. Moist mucous membranes. Neck: Supple, full range of motion, no observable masses, No meningeal sign. Lungs: severe rhonchi in right lung, slightly worse than prior CV: RRR, no edema. Abdomen: Soft, nondistended, No rebound tenderness. MSK: No joint swelling, no redness. Skin: No rashes, petechiae, lesions. Normal color per patient. Neuro: right hemiparesis is chronic, expressive aphasia Psych: Appropriate for situation. Results & Data Results & Data Vital Signs (Past 12 Hours) Vital Signs Temp Pulse Pulse Resp BP Pulse Ox Pulse Ox 11/06/24 13:14 96 11/06/24 13:12 85 L 11/06/24 12:33 87 20 91 11/06/24 12:31 92 11/06/24 12:00 92 11/06/24 11:45 36.7 C 52 L 18 119/62 93 11/06/24 09:00 54 L 11/06/24 09:00 11/06/24 08:28 37.0 C 63 20 120/59 L 95 11/06/24 07:48 60 22 95 07/19/25 04:18 36.5 C 59 L 20 112/69 93 11/06/24 03:54 74 21 96 O2 Del Method O2 Del Method O2 Flow Rate FiO2 11/06/24 13:14 High Flow Nasal Cannula 40 80 11/06/24 13:12 High Flow Nasal Cannula 30 70 11/06/24 12:33 High Flow Nasal Cannula 30 70 11/06/24 12:31 High Flow Nasal Cannula 30 70 11/06/24 12:00 High Flow Nasal Cannula 11/06/24 11:45 Nasal Cannula 14 11/06/24 09:00 11/06/24 09:00 BiPAP, High Flow Nasal Cannula 14 11/06/24 08:28 Nasal Cannula 15.0 11/06/24 07:48 Nasal Cannula 14 11/06/24 04:18 BiPAP 11/06/24 03:54 40 Laboratory Results -personally reviewed, K of 3.2 replenished, leukocytosis downtrending Medications Administered Albuterol (Albuterol 0.083% Nebu Soln 3 Ml Vial) 2.5 mg NEB Q6H PRN; Protocol PRN Reason: Shortness Of Breath Or Wheezing Stop: 12/03/24 12:15 Last Admin: 11/06/24 07:41 Dose: 2.5 mg Documented By: RALPH Allopurinol (Allopurinol 300 Mg Tab) 450 mg PO DAILY [facility] Stop: 12/04/24 08:59 Last Admin: 11/06/24 08:52 Dose: 450 mg Documented By: Admin: 11/05/24 09:09 Dose: 450 mg Documented By: Admin: 11/04/24 08:50 Dose: 450 mg Documented By: KRISTINE Apixaban (Apixaban 5 Mg Tablet) 5 mg PO BID [facility] Stop: 12/03/24 20:59 Last Admin: 11/06/24 08:52 Dose: 5 mg Documented By: Admin: 11/05/24 20:01 Dose: 5 mg Documented By: Admin: 11/05/24 09:13 Dose: 5 mg Documented By: Admin: 11/04/24 21:05 Dose: 5 mg Documented By: Admin: 11/04/24 08:53 Dose: 5 mg Documented By: Admin: 11/03/24 21:00 Dose: 5 mg Documented By: ELIO Diclofenac Sodium (Diclofenac Sod 1% Gel 100 Gm Tube) 2 gm EXT QID ADRIANA; Protocol Stop: 12/03/24 12:59 Last Admin: 11/06/24 12:11 Dose: 2 gm Documented By: Admin: 11/06/24 08:53 Dose: 2 gm Documented By: Admin: 11/05/24 20:01 Dose: 2 gm Documented By: Admin: 11/05/24 17:13 Dose: 2 gm Documented By: Admin: 11/05/24 12:26 Dose: 2 gm Documented By: Admin: 11/05/24 09:14 Dose: 2 gm Documented By: JenniferO Admin: 11/04/24 21:03 Dose: 2 gm Documented By: Admin: 11/04/24 16:33 Dose: 2 gm Documented By: Admin: 11/04/24 12:20 Dose: 2 gm Documented By: Admin: 11/04/24 09:01 Dose: 2 gm Documented By: Admin: 11/03/24 20:58 Dose: 2 gm Documented By: Admin: 11/03/24 16:21 Dose: 2 gm Documented By: Admin: 11/03/24 12:51 Dose: 2 gm Documented By: JenniferO Docusate Sodium (Docusate Sodium 100 Mg Cap) 100 mg PO BID [facility] Stop: 12/03/24 20:59 Last Admin: 11/06/24 09:00 Dose: 100 mg Documented By: Admin: 11/05/24 20:01 Dose: Not Given Documented By: Admin: 11/05/24 09:07 Dose: 100 mg Documented By: Admin: 11/04/24 21:05 Dose: Not Given Documented By: Admin: 11/04/24 08:49 Dose: 100 mg Documented By: Admin: 11/03/24 21:03 Dose: Not Given Documented By: ELIO Ezetimibe (Ezetimibe 10 Mg Tab) 10 mg PO DAILY [facility] Stop: 12/04/24 08:59 Last Admin: 11/06/24 08:51 Dose: 10 mg Documented By: Admin: 11/05/24 09:12 Dose: 10 mg Documented By: Admin: 11/04/24 08:55 Dose: 10 mg Documented By: KRISTINE Escitalopram Oxalate (Escitalopram Oxalate 10 Mg Tab) 10 mg PO DAILY [facility] Stop: 12/04/24 08:59 Last Admin: 11/06/24 08:52 Dose: 10 mg Documented By: Admin: 11/05/24 09:19 Dose: 10 mg Documented By: Admin: 11/04/24 08:56 Dose: 10 mg Documented By: KRISTINE Flecainide Acetate (Flecainide Acetate 100 Mg Tablet) 100 mg PO BID [facility] Stop: 12/03/24 20:59 Last Admin: 11/06/24 08:52 Dose: 100 mg Documented By: Admin: 11/05/24 20:01 Dose: 100 mg Documented By: Admin: 11/05/24 09:11 Dose: 100 mg Documented By: Admin: 11/04/24 21:04 Dose: 100 mg Documented By: Admin: 11/04/24 08:55 Dose: 100 mg Documented By: Admin: 11/03/24 20:59 Dose: 100 mg Documented By: ELIO Fluticasone Propionate (Fluticasone Propionate Na Spr 16 Gm Btl) 2 sprays NA DAILY [facility] Stop: 12/03/24 12:59 Last Admin: 11/06/24 08:53 Dose: 2 sprays Documented By: Admin: 11/05/24 09:14 Dose: 2 sprays Documented By: Admin: 11/04/24 09:01 Dose: 2 sprays Documented By: Admin: 11/03/24 12:51 Dose: 2 sprays Documented By: KRISTINE Furosemide (Furosemide Inj 20 Mg/2 Ml Vial) 40 mg IV BID17 [facility] Stop: 12/06/24 08:59 Last Admin: 11/06/24 09:02 Dose: 40 mg Documented By: CONSTANTINE Gabapentin (Gabapentin 300 Mg Cap) 300 mg PO HS [facility] Stop: 12/03/24 20:59 Last Admin: 11/05/24 20:02 Dose: 300 mg Documented By: Admin: 11/04/24 21:05 Dose: 300 mg Documented By: Admin: 11/03/24 21:00 Dose: 300 mg Documented By: ELIO Guaifenesin (Guaifenesin 600 Mg Tabcr) 1,200 mg PO Q12 [facility] Stop: 12/03/24 20:59 Last Admin: 11/06/24 08:51 Dose: 1,200 mg Documented By: Admin: 11/05/24 20:02 Dose: 1,200 mg Documented By: Admin: 11/05/24 09:08 Dose: 1,200 mg Documented By: Admin: 11/04/24 21:04 Dose: 1,200 mg Documented By: Admin: 11/04/24 08:52 Dose: 1,200 mg Documented By: Admin: 11/03/24 20:59 Dose: 1,200 mg Documented By: VK Piperacillin Sod/Tazobactam Sod (Zosyn) 4.5 gm in 100 mls @ 25 mls/hr IV Q8H ADRIANA; Protocol Stop: 11/09/24 13:59 Last Infusion: 11/06/24 09:48 Dose: Infused Documented By: Admin: 11/06/24 05:45 Dose: 25 mls/hr Documented By: Infusion: 11/06/24 01:23 Dose: Infused Documented By: Admin: 11/05/24 21:23 Dose: 25 mls/hr Documented By: Infusion: 11/05/24 19:11 Dose: Infused Documented By: Admin: 11/05/24 15:11 Dose: 25 mls/hr Documented By: Infusion: 11/05/24 09:29 Dose: Infused Documented By: Admin: 11/05/24 05:16 Dose: 25 mls/hr Documented By: Infusion: 11/05/24 01:22 Dose: Infused Documented By: Admin: 11/04/24 21:22 Dose: 25 mls/hr Documented By: Infusion: 11/04/24 19:13 Dose: Infused Documented By: Admin: 11/04/24 15:13 Dose: 25 mls/hr Documented By: OO Insulin Aspart (Insulin Aspart Per Unit Charge) 0 units SC ACHS ADRIANA Stop: 12/04/24 16:44 Last Admin: 11/06/24 12:11 Dose: 5 units Documented By: CONSTANTINE Co-signed By: JEFF Admin: 11/06/24 07:59 Dose: Not Given Documented By: Admin: 11/05/24 20:15 Dose: 4 units Documented By: ELIO Co-signed By: MPC Admin: 11/05/24 17:14 Dose: 3 units Documented By: OO Co-signed By: MTP Admin: 11/05/24 12:25 Dose: 3 units Documented By: OO Co-signed By: MTP Admin: 11/05/24 08:36 Dose: Not Given Documented By: Admin: 11/04/24 21:14 Dose: 2 units Documented By: VK Co-signed By: REKHAG Admin: 11/04/24 17:25 Dose: 5 units Documented By: OO Co-signed By: TODD Melatonin (Melatonin 3 Mg Tab) 3 mg PO HS AD[facility] Stop: 12/03/24 20:59 Last Admin: 11/05/24 20:01 Dose: 3 mg Documented By: Admin: 11/04/24 21:04 Dose: 3 mg Documented By: Admin: 11/03/24 20:59 Dose: 3 mg Documented By: VK Metoprolol Tartrate (Metoprolol Tartrate 25 Mg Tab) 25 mg PO BID [facility] Stop: 12/03/24 20:59 Last Admin: 11/06/24 08:52 Dose: 25 mg Documented By: Admin: 11/05/24 20:03 Dose: Not Given Documented By: Admin: 11/05/24 09:13 Dose: 25 mg Documented By: OJennifer Admin: 11/04/24 21:03 Dose: Not Given Documented By: Admin: 11/04/24 08:57 Dose: 25 mg Documented By: Admin: 11/03/24 21:00 Dose: 25 mg Documented By: ELIO Pantoprazole Sodium (Pantoprazole 40 Mg Tab) 40 mg PO DAILY [facility] Stop: 12/04/24 08:59 Last Admin: 11/06/24 08:52 Dose: 40 mg Documented By: Admin: 11/05/24 09:12 Dose: 40 mg Documented By: Admin: 11/04/24 08:56 Dose: 40 mg Documented By: KRISTINE Polyethylene Glycol (Polyethylene (Miralax) 17 Gm Pack) 17 gm PO DAILY [facility] Stop: 12/04/24 08:59 Last Admin: 11/06/24 09:00 Dose: 17 gm Documented By: Admin: 11/05/24 09:16 Dose: Not Given Documented By: Admin: 11/04/24 08:58 Dose: 17 gm Documented By: KRISTINE (7) Type 2 diabetes mellitus without complication Diabetes mellitus prison insulin use: without terminologist use Qualified Code(s): E11.9 - Type 2 diabetes mellitus without complications
[2024-11-06] MEDS: DOXYCYCLINE HYCLATE 100 MG in DEXTROSE 5% MINI-B 100 ML IV SCH (14:59)
[2024-11-06 15:37] LABS: Base Excess VBG 8.5 mEq/L; HCO3 VBG 33 mmol/L; Oxygen Saturation VBG 77.7 %; PCO2 VBG 43 mmHg (38-50); PO2 VBG 47 mmHg; pH VBG 7.49 (7.36-7.41)
[2024-11-07 06:10] LABS: Base Excess VBG 11.2 mEq/L; HCO3 VBG 37 mmol/L; Oxygen Saturation VBG 80.8 %; PCO2 VBG 52 mmHg (38-50); PO2 VBG 49 mmHg; pH VBG 7.46 (7.36-7.41)
[2024-11-07 06:13] LABS: Hematocrit (blood only) 37.2 % (37.0-47.0); Hemoglobin 12.3 g/dl (12.0-16.0); Mean Corpuscular Hemoglobin 29.4 pg (25.0-34.0); Mean Corpuscular Volume 89.0 fL (80.0-100.0); Platelet Count 526 K/uL (130-400); RDW Standard Deviation 53.2 fL (36.4-46.3); Red Blood Count 4.18 M/uL (4.20-5.40); White Blood Count 9.56 K/ul (4.8-10.8)
[2024-11-07 06:37] LABS: Anion Gap 9.0 (3-11); Blood Urea Nitrogen 21.0 mg/dl (6-23); Calcium 8.5 mg/dl (8.6-10.3); Carbon Dioxide 32.0 mmol/L (21-32); Chloride 101.0 mmol/L (98-107); Creatinine Clr Calc Pharmacy 83.0 ml/min; Glucose 148.0 mg/dl (70-99(Fasting)); Magnesium 1.5 mg/dl (1.7-2.4); Potassium 3.1 mmol/L (3.5-5.1); Sodium 142.0 mmol/L (136-145)
[2024-11-07] MEDS: POTASSIUM CHLORIDE CRTAB 20 MEQ TABCR PO STA (07:45)
[2024-11-07] MEDS: POTASSIUM CHLORIDE / WTR 10 MEQ/100 ML PLCT IV SCH (07:45)
--- NOTE | 2024-11-07 07:45 | Pulmonology Progress Note ---
Date of Service November 07, 2024 Assessment & Plan (1) Atelectasis: (2) Mucus plugging of bronchi: (3) Aspiration pneumonia: (4) Enterovirus infection: (5) Acute hypoxemic respiratory failure: Plan Impression: Debilitated 74-year-old female admitted from retirement after aspiration event being treated for pneumonia with persistent hypoxemia. CT scan shows fairly dense lower lobe consolidation/atelectasis which is likely resulting in VQ mismatching and persistent hypoxemia. Recommendations: 1. Hypoxemia: Continue to wean oxygen as tolerated. Her hypoxemia is likely result of VQ mismatch and due to significant atelectasis and the patient lying in a supine position.. 2. Atelectasis with mucous plugging. Patient reports she is coughing although it is unclear how effectual her cough is. Will continue aggressive interventions including flutter valve, vest therapy, incentive spirometry, and nebulized bronchodilators. Repeat chest x-ray in AM. If she fails, could consider bronchoscopy however her oxygen requirement currently is somewhat problematic and may require intubation. Will continue conservative measures in the hope of avoiding invasive procedures at this point in time. Patient has completed a full course of Zosyn and doxycycline I think antibiotics can be discontinued at this point in time. 3. Management of the patient's other medical issues per primary admitting service. Will continue to follow with you. Feel free to contact us with questions or concerns Admission and Anticipated Discharge Date Admission Date: November 03, 2024 Subjective Patient seen and examined. EMR reviewed. Discussed with bedside nurse. The patient nurse reports that she has been coughing more. She had increasing oxygen requirement yesterday and is now weaning back down but remains on high flow. Her cough is moist but not really productive despite aggressive interventions. Review of Systems 2 Review of Systems: All systems reviewed & are unremarkable except as noted in Subjective Physical Exam 2 Constitutional: well nourished and + obese; no acute distress Neck: trachea midline, no thyromegaly Respiratory: no respiratory distress, no labored breathing, no cough and not tachypneic Auscultation: + diminished lung sounds; no wheezes Cardiovascular: RRR, no murmur, no edema Gastrointestinal (Abdomen): normal bowel sounds, soft, nontender, no hepatosplenomegaly Musculoskeletal: Extremities: extremities normal to inspection Skin: no rashes, warm and dry Lymphatic: no cervical lymphadenopathy Results & Data Results & Data Vital Signs (Past 12 Hours) Vital Signs Temp Pulse Pulse Resp BP Pulse Ox O2 Del Method 11/07/24 07:38 36.5 C 55 L 20 134/60 93 High Flow Nasal Cannula 11/07/24 03:34 36.5 C 52 L 18 127/67 100 High Flow Nasal Cannula 11/06/24 23:07 36.7 C 63 16 131/86 99 High Flow Nasal Cannula 11/06/24 22:55 60 18 98 High Flow Nasal Cannula 11/06/24 22:50 53 L 11/06/24 20:52 60 22 95 High Flow Nasal Cannula 11/06/24 20:00 High Flow Nasal Cannula O2 Flow Rate FiO2 11/07/24 07:38 11/07/24 03:34 40 11/06/24 23:07 40 11/06/24 22:55 40 40 11/06/24 22:50 11/06/24 20:52 40 50 11/06/24 20:00 40 70 Laboratory Results 11/07/24 05:47 11/07/24 05:47 Diagnostic Findings No new imaging PG Care Time/CCT Total # of Minutes Spent Total Time Spent with Patient: Total time spent is greater than 50% in coordination of care (as documented) at patient's floor/unit and/or counseling patient: Coding Level of Care Code 63388 SUB INP/OBS CARE 2/35MIN Diagnoses Atelectasis J98.11 Mucus plugging of bronchi T17.500A Aspiration pneumonia J69.0 Enterovirus infection B34.1 Acute hypoxemic respiratory failure J96.01
[2024-11-07] MEDS: FUROSEMIDE INJ 20 MG/2 ML VIAL IV SCH (07:46)
[2024-11-07] MEDS: MAGNESIUM SULFATE / D5W 1 GM/100 ML BAG IV SCH (08:10)
[2024-11-07] MEDS: HYDROCORTISONE SOD 50 MG in SYRINGE 0 ML IV SCH (13:10)
--- NOTE | 2024-11-07 14:13 | Hospitalist Progress Note ---
Date of Service November 07, 2024 Assessment & Plan (1) Acute hypoxemic respiratory failure: (2) Aspiration pneumonia: (3) Enterovirus infection: (4) Complicated UTI (urinary tract infection): (5) Chronic indwelling Lenz catheter: (6) Hypomagnesemia: (7) Type 2 diabetes mellitus without complication: (8) Atrial fibrillation: (9) On anticoagulant therapy: Plan This is a 74-year-old female who has significant past medical history of atrial fibrillation anticoagulated on Eliquis, T2DM, diabetic neuropathy, HTN, HLD, gouty arthropathy, history of left MCA CVA with right hemiparesis, dysphagia and aphasia, chronic RBBB, history of amputation of toe on left foot, history of breast cancer and depression with anxiety who presents to ED due to concerns for pneumonia from shelter facility. #Acute hypoxemic respiratory failure #Aspiration Pneumonia in setting of witness Aspiration event at SNF (10/30 choked on grilled cheese) #Entero/Rhinovirus positive (had viral URI sx since 10/27) #Bilateral Lung Atelectasis #Acute Decompensated HFpEF -patient has aspiration CAP on the right side on imaging with cough and leukocytosis -on high flow NC, worsening oxygenation at this time -had aspiration event on Friday requiring Heimlich manouver -MRSA swab negative, ABG reassuring -CT scan personally revealed reveals bilateral small pleural effusions, bilateral atelectasis and HAP -chest xray revealing concern for severe bilateral HAP -echo revealing diastolic dysfunction Plan: -speech consulted, appreciate recs -decrease to 20 IV bid lasix, aggressive bronchopulm hygiene -continue deep suctioning given poor cough effort -continue IS, continue flutter valve, continue chest vest (given hemiparesis) -continue zosyn (day 4/7), continue doxycycline IV (day 2/7) -start hydrocortisone 50mg IV q6hrs for refractory hypoxemia -muccinex, sputum culture, flonase -pulmonology consult, appreciate recs #CA- UTI -chronic lenz, recurrent UTI, [place] [facility] [place]previous cultures grew kleb, e coli and proteus -continue zosyn #Hypomagnesemia -replenished #T2DM -lantus/novolog per protocol -chronic, stable #PAF on nursing home eliquis -continue eliquis, metoprolol and flecanine -pt rate/rhythm controlled #Hx of L MCA CVA with residual aphasia, dysphagia and RHP -on eliquis and repatha - states repatha due 11/03 on day of admission; however recommend pt hold until acute illness improved -can resume when return to SNF I spent a total of 50 minutes in direct patient care, including [id number] time with the patient and/or family, reviewing medical records, ordering and reviewing diagnostic tests, and coordinating care with other healthcare providers. This time includes: history taking, physical examination, medical decision making, counseling, ECG interpretation, imaging interpretation, lab interpretation, orders, and education, excluding time spent in the performance of separately billed services. Admission and Anticipated Discharge Date Admission Date: November 03, 2024 Subjective Patient seen and examined at bedside. Patient feels ok at this time and states she feels better than yesterday. Review of Systems Review of Systems: -unable to ask full ROS due to chronic d isability Physical Exam Physical Exam: Gen: A&O 3 NAD HEENT: NCAT, EOMI, not icteric. External ears normal. No rhinorrhea. Moist mucous membranes. Neck: Supple, full range of motion, no observable masses, No meningeal sign. Lungs: severe rhonchi in right lung, similar to prior CV: RRR, no edema. Abdomen: Soft, nondistended, No rebound tenderness. MSK: No joint swelling, no redness. Skin: No rashes, petechiae, lesions. Normal color per patient. Neuro: right hemiparesis is chronic, expressive aphasia Psych: Appropriate for situation. Results & Data Results & Data Vital Signs (Past 12 Hours) Vital Signs Temp Pulse Pulse Resp BP Pulse Ox O2 Del Method 11/07/24 14:00 71 11/07/24 11:45 36.5 C 68 96 H 126/72 96 Room Air, High Flow Nasal Cannula 11/07/24 09:49 62 20 92 High Flow Nasal Cannula 11/07/24 08:00 53 L 11/07/24 08:00 High Flow Nasal Cannula 11/07/24 07:53 55 L 18 95 High Flow Nasal Cannula 11/07/24 07:38 36.5 C 55 L 20 134/60 93 High Flow Nasal Cannula 11/07/24 03:34 36.5 C 52 L 18 127/67 100 High Flow Nasal Cannula O2 Flow Rate FiO2 11/07/24 14:00 11/07/24 11:45 11/07/24 09:49 60 80 11/07/24 08:00 11/07/24 08:00 11/07/24 07:53 30 35 11/07/24 07:38 11/07/24 03:34 40 Laboratory Results -personally reviewed, K of 3.1 and replenished, creatinine around baseline, Mg 1.5 and replenished Medications Administered Albuterol (Albuterol 0.083% Nebu Soln 3 Ml Vial) 2.5 mg NEB Q6H PRN; Protocol PRN Reason: Shortness Of Breath Or Wheezing Stop: 12/03/24 12:15 Last Admin: 11/07/24 07:52 Dose: 2.5 mg Documented By: Admin: 11/06/24 07:41 Dose: 2.5 mg Documented By: RALPH Allopurinol (Allopurinol 300 Mg Tab) 450 mg PO DAILY [facility] Stop: 12/04/24 08:59 Last Admin: 11/07/24 07:26 Dose: 450 mg Documented By: Admin: 11/06/24 08:52 Dose: 450 mg Documented By: Admin: 11/05/24 09:09 Dose: 450 mg Documented By: Admin: 11/04/24 08:50 Dose: 450 mg Documented By: KRISTINE Apixaban (Apixaban 5 Mg Tablet) 5 mg PO BID [facility] Stop: 12/03/24 20:59 Last Admin: 11/06/24 08:52 Dose: 5 mg Documented By: Admin: 11/05/24 20:01 Dose: 5 mg Documented By: Admin: 11/05/24 09:13 Dose: 5 mg Documented By: Admin: 11/04/24 21:05 Dose: 5 mg Documented By: Admin: 11/04/24 08:53 Dose: 5 mg Documented By: Admin: 11/03/24 21:00 Dose: 5 mg Documented By: ELIO Diclofenac Sodium (Diclofenac Sod 1% Gel 100 Gm Tube) 2 gm EXT QID ADRIANA; Protocol Stop: 12/03/24 12:59 Last Admin: 11/07/24 12:42 Dose: 2 gm Documented By: Admin: 11/07/24 07:27 Dose: 2 gm Documented By: Admin: 11/06/24 21:15 Dose: 2 gm Documented By: Admin: 11/06/24 16:47 Dose: Not Given Documented By: Admin: 11/06/24 12:11 Dose: 2 gm Documented By: Admin: 11/06/24 08:53 Dose: 2 gm Documented By: Admin: 11/05/24 20:01 Dose: 2 gm Documented By: Admin: 11/05/24 17:13 Dose: 2 gm Documented By: Admin: 11/05/24 12:26 Dose: 2 gm Documented By: Admin: 11/05/24 09:14 Dose: 2 gm Documented By: Admin: 11/04/24 21:03 Dose: 2 gm Documented By: Admin: 11/04/24 16:33 Dose: 2 gm Documented By: Admin: 11/04/24 12:20 Dose: 2 gm Documented By: Admin: 11/04/24 09:01 Dose: 2 gm Documented By: Admin: 11/03/24 20:58 Dose: 2 gm Documented By: Admin: 11/03/24 16:21 Dose: 2 gm Documented By: Admin: 11/03/24 12:51 Dose: 2 gm Documented By: OO Docusate Sodium (Docusate Sodium 100 Mg Cap) 100 mg PO BID [facility] Stop: 12/03/24 20:59 Last Admin: 11/07/24 07:26 Dose: 100 mg Documented By: Admin: 11/06/24 21:15 Dose: 100 mg Documented By: Admin: 11/06/24 09:00 Dose: 100 mg Documented By: Admin: 11/05/24 20:01 Dose: Not Given Documented By: Admin: 11/05/24 09:07 Dose: 100 mg Documented By: Admin: 11/04/24 21:05 Dose: Not Given Documented By: Admin: 11/04/24 08:49 Dose: 100 mg Documented By: Admin: 11/03/24 21:03 Dose: Not Given Documented By: VK Ezetimibe (Ezetimibe 10 Mg Tab) 10 mg PO DAILY [facility] Stop: 12/04/24 08:59 Last Admin: 11/07/24 07:25 Dose: 10 mg Documented By: Admin: 11/06/24 08:51 Dose: 10 mg Documented By: Admin: 11/05/24 09:12 Dose: 10 mg Documented By: Admin: 11/04/24 08:55 Dose: 10 mg Documented By: KRISTINE Escitalopram Oxalate (Escitalopram Oxalate 10 Mg Tab) 10 mg PO DAILY [facility] Stop: 12/04/24 08:59 Last Admin: 11/07/24 07:28 Dose: 10 mg Documented By: Admin: 11/06/24 08:52 Dose: 10 mg Documented By: Admin: 11/05/24 09:19 Dose: 10 mg Documented By: Admin: 11/04/24 08:56 Dose: 10 mg Documented By: KRISTINE Flecainide Acetate (Flecainide Acetate 100 Mg Tablet) 100 mg PO BID [facility] Stop: 12/03/24 20:59 Last Admin: 11/07/24 07:28 Dose: 100 mg Documented By: Admin: 11/06/24 21:16 Dose: 100 mg Documented By: Admin: 11/06/24 08:52 Dose: 100 mg Documented By: Admin: 11/05/24 20:01 Dose: 100 mg Documented By: Admin: 11/05/24 09:11 Dose: 100 mg Documented By: Admin: 11/04/24 21:04 Dose: 100 mg Documented By: Admin: 11/04/24 08:55 Dose: 100 mg Documented By: Admin: 11/03/24 20:59 Dose: 100 mg Documented By: ELIO Fluticasone Propionate (Fluticasone Propionate Na Spr 16 Gm Btl) 2 sprays NA DAILY [facility] Stop: 12/03/24 12:59 Last Admin: 11/07/24 07:27 Dose: 2 sprays Documented By: Admin: 11/06/24 08:53 Dose: 2 sprays Documented By: Admin: 11/05/24 09:14 Dose: 2 sprays Documented By: Admin: 11/04/24 09:01 Dose: 2 sprays Documented By: Admin: 11/03/24 12:51 Dose: 2 sprays Documented By: KRISTINE Furosemide (Furosemide Inj 20 Mg/2 Ml Vial) 20 mg IV BID17 [facility] Stop: 12/06/24 08:59 Last Admin: 11/07/24 07:46 Dose: 20 mg Documented By: CONSTANTINE Gabapentin (Gabapentin 300 Mg Cap) 300 mg PO HS [facility] Stop: 12/03/24 20:59 Last Admin: 11/06/24 21:16 Dose: 300 mg Documented By: Admin: 11/05/24 20:02 Dose: 300 mg Documented By: Admin: 11/04/24 21:05 Dose: 300 mg Documented By: Admin: 11/03/24 21:00 Dose: 300 mg Documented By: VK Guaifenesin (Guaifenesin 600 Mg Tabcr) 1,200 mg PO Q12 [facility] Stop: 12/03/24 20:59 Last Admin: 11/07/24 07:26 Dose: 1,200 mg Documented By: Admin: 11/06/24 21:16 Dose: 1,200 mg Documented By: Admin: 11/06/24 08:51 Dose: 1,200 mg Documented By: Admin: 11/05/24 20:02 Dose: 1,200 mg Documented By: Admin: 11/05/24 09:08 Dose: 1,200 mg Documented By: Admin: 11/04/24 21:04 Dose: 1,200 mg Documented By: Admin: 11/04/24 08:52 Dose: 1,200 mg Documented By: JenniferO Admin: 11/03/24 20:59 Dose: 1,200 mg Documented By: ELIO Piperacillin Sod/Tazobactam Sod (Zosyn) 4.5 gm in 100 mls @ 25 mls/hr IV Q8H ADRIANA; Protocol Stop: 11/09/24 13:59 Last Admin: 11/07/24 13:11 Dose: 25 mls/hr Documented By: Infusion: 11/07/24 09:44 Dose: Infused Documented By: Admin: 11/07/24 05:43 Dose: 25 mls/hr Documented By: Infusion: 11/07/24 01:25 Dose: Infused Documented By: Admin: 11/06/24 21:23 Dose: 25 mls/hr Documented By: Infusion: 11/06/24 19:38 Dose: Infused Documented By: Admin: 11/06/24 14:53 Dose: 25 mls/hr Documented By: Infusion: 11/06/24 09:48 Dose: Infused Documented By: Admin: 11/06/24 05:45 Dose: 25 mls/hr Documented By: Infusion: 11/06/24 01:23 Dose: Infused Documented By: Admin: 11/05/24 21:23 Dose: 25 mls/hr Documented By: Infusion: 11/05/24 19:11 Dose: Infused Documented By: Admin: 11/05/24 15:11 Dose: 25 mls/hr Documented By: Infusion: 11/05/24 09:29 Dose: Infused Documented By: Admin: 11/05/24 05:16 Dose: 25 mls/hr Documented By: Infusion: 11/05/24 01:22 Dose: Infused Documented By: Admin: 11/04/24 21:22 Dose: 25 mls/hr Documented By: Infusion: 11/04/24 19:13 Dose: Infused Documented By: Admin: 11/04/24 15:13 Dose: 25 mls/hr Documented By: KRISTINE Doxycycline Hyclate 100 mg/ (Dextrose) 100 mls @ 50 mls/hr IV Q12H ADRIANA Stop: 11/13/24 14:59 Last Admin: 11/07/24 14:04 Dose: 50 mls/hr Documented By: Infusion: 11/07/24 05:43 Dose: Infused Documented By: Admin: 11/07/24 03:42 Dose: 50 mls/hr Documented By: Infusion: 11/06/24 17:08 Dose: Infused Documented By: Admin: 11/06/24 14:59 Dose: 50 mls/hr Documented By: CONSTANTINE Hydrocortisone Sodium (Succinate 50 mg/ Syringe) 1 mls @ 4 mls/min IV Q6H [facility] Stop: 12/07/24 12:44 Last Admin: 11/07/24 13:10 Dose: 4 mls/min Documented By: CONSTANTINE Insulin Aspart (Insulin Aspart Per Unit Charge) 0 units SC ACHS ADRINAA Stop: 12/04/24 16:44 Last Admin: 11/07/24 12:42 Dose: 2 units Documented By: CONSTANTINE Co-signed By: JAIDEN Admin: 11/07/24 07:45 Dose: 3 units Documented By: CONSTANTINE Co-signed By: NMS Admin: 11/06/24 21:14 Dose: 2 units Documented By: AMY Co-signed By: GTH Admin: 11/06/24 16:43 Dose: 5 units Documented By: CONSTANTINE Co-signed By: DTT Admin: 11/06/24 12:11 Dose: 5 units Documented By: CONSTANTINE Co-signed By: AM Admin: 11/06/24 07:59 Dose: Not Given Documented By: Admin: 11/05/24 20:15 Dose: 4 units Documented By: VK Co-signed By: MPC Admin: 11/05/24 17:14 Dose: 3 units Documented By: OO Co-signed By: MTP Admin: 11/05/24 12:25 Dose: 3 units Documented By: OO Co-signed By: MTP Admin: 11/05/24 08:36 Dose: Not Given Documented By: Admin: 11/04/24 21:14 Dose: 2 units Documented By: ELIO Co-signed By: MYKEL Admin: 11/04/24 17:25 Dose: 5 units Documented By: OO Co-signed By: LMP Melatonin (Melatonin 3 Mg Tab) 3 mg PO HS ADRIANA Stop: 12/03/24 20:59 Last Admin: 11/06/24 21:15 Dose: 3 mg Documented By: Admin: 11/05/24 20:01 Dose: 3 mg Documented By: Admin: 11/04/24 21:04 Dose: 3 mg Documented By: Admin: 11/03/24 20:59 Dose: 3 mg Documented By: ELIO Metoprolol Tartrate (Metoprolol Tartrate 25 Mg Tab) 25 mg PO BID [facility] Stop: 12/03/24 20:59 Last Admin: 11/07/24 07:28 Dose: Not Given Documented By: Admin: 11/06/24 21:16 Dose: 25 mg Documented By: Admin: 11/06/24 08:52 Dose: 25 mg Documented By: Admin: 11/05/24 20:03 Dose: Not Given Documented By: Admin: 11/05/24 09:13 Dose: 25 mg Documented By: Admin: 11/04/24 21:03 Dose: Not Given Documented By: Admin: 11/04/24 08:57 Dose: 25 mg Documented By: Admin: 11/03/24 21:00 Dose: 25 mg Documented By: ELIO Pantoprazole Sodium (Pantoprazole 40 Mg Tab) 40 mg PO DAILY [facility] Stop: 12/04/24 08:59 Last Admin: 11/07/24 07:26 Dose: 40 mg Documented By: Admin: 11/06/24 08:52 Dose: 40 mg Documented By: Admin: 11/05/24 09:12 Dose: 40 mg Documented By: Admin: 11/04/24 08:56 Dose: 40 mg Documented By: KRISTINE Polyethylene Glycol (Polyethylene (Miralax) 17 Gm Pack) 17 gm PO DAILY [facility] Stop: 12/04/24 08:59 Last Admin: 11/07/24 07:23 Dose: 17 gm Documented By: Admin: 11/06/24 09:00 Dose: 17 gm Documented By: Admin: 11/05/24 09:16 Dose: Not Given Documented By: Admin: 11/04/24 08:58 Dose: 17 gm Documented By: KRISTINE (7) Type 2 diabetes mellitus without complication Diabetes mellitus terminologist insulin use: without nursing home use Qualified Code(s): E11.9 - Type 2 diabetes mellitus without complications
--- NOTE | 2024-11-07 16:05 | XRay Report ---
Exam: Chest one view portable Reason for exam: Shortness of breath. Previous studies: Portable chest 11/06/2024. FINDINGS: Heart is markedly enlarged with the central pulmonary vascular congestion and interstitial edema as well as moderate bilateral pleural effusions. Findings are compatible with moderate to severe CHF. Underlying areas of lung consolidation/pneumonitis/atelectasis could also be present and obscured. IMPRESSION: Moderate to severe CHF. Underlying areas of lung consolidation/pneumonitis/atelectasis could also be present and obscured. More specific evaluation could be attempted with CT study of the thorax. Electronically signed by Miguel Toribio 11-07-2024 4:05 PM
[2024-11-07] MEDS: OPTIRAY 320 100ml IV ONE (17:01)
[2024-11-07] MEDS: INSULIN ASPART PER UNIT CHARGE SC SCH (17:21)
--- NOTE | 2024-11-07 18:31 | CT Scan Report ---
CT CHEST WITH CONTRAST: HISTORY: Shortness of breath TECHNIQUE: CT of the chest was obtained with intravenous contrast. Coronal and sagittal reformats were created. IV CONTRAST: 100 mL of OMNIPAQUE 300 COMPARISON: Thoracic CT November 04, 2024 FINDINGS: LOWER NECK: Normal thyroid. LYMPH NODES: Again seen are mildly prominent mediastinal and hilar lymph nodes CARDIOVASCULAR: Cardiac size is stable enlarged. Coronary artery and valvular calcifications are noted. No aortic aneurysm. LUNGS: There is notated in the lower lobe airways. Redemonstrated bibasilar consolidations representing atelectasis and pneumonia. New groundglass densities are noted in the right middle lobe and scattered groundglass densities of the right upper lobe have also mildly increased. PLEURA: Small pleural fluids are similar to the previous. There is no pneumothorax. UPPER ABDOMEN: No acute findings. Nodular thickening of the adrenal glands. Hepatosplenomegaly OSSEOUS STRUCTURES: No acute findings CHEST WALL: Bilateral mastectomies. Left breast implant. IMPRESSION: Interval worsening of airspace disease in the right lung as above. Debris is noted in the lower lobe airways indicating aspiration. Electronically signed by Jose F Argueta 11-07-2024 6:31 PM
[2024-11-07] MEDS: SODIUM CHLORIDE 0.65% NA SOLN 45 ML (OCEAN) STA (20:14)
[2024-11-08] MEDS: METOPROLOL TARTRATE 1 MG/ML VIAL IV STA (00:39)
--- NOTE | 2024-11-08 07:54 | XRay Report ---
EXAM: XR chest 1V portable CLINICAL HISTORY: atelectasis TECHNIQUE: Radiograph of chest was acquired. COMPARISON: 11/07/2024 14:39:00 [facility] [employer] FINDINGS: Hazy opacity in bilateral lower zones, likely of infective etiology. Rest of the lungs are clear and well-expanded. The cardiomediastinal silhouette is within normal limits. No acute osseous abnormality. IMPRESSION: 1. Hazy opacity in bilateral lower zones, likely of infective etiology. No significant interval change compared to previous study. Electronically signed by Gunnar Yu 11-08-2024 07:53 AM
[2024-11-08 08:09] LABS: Base Excess VBG 11.9 mEq/L; HCO3 VBG 36 mmol/L; Oxygen Saturation VBG 92.4 %; PCO2 VBG 43 mmHg (38-50); PO2 VBG 61 mmHg; pH VBG 7.53 (7.36-7.41)
[2024-11-08 08:16] LABS: Hematocrit (blood only) 38.9 % (37.0-47.0); Hemoglobin 12.6 g/dl (12.0-16.0); Mean Corpuscular Hemoglobin 28.8 pg (25.0-34.0); Mean Corpuscular Volume 89.0 fL (80.0-100.0); Platelet Count 551 K/uL (130-400); RDW Standard Deviation 53.7 fL (36.4-46.3); Red Blood Count 4.37 M/uL (4.20-5.40); White Blood Count 9.93 K/ul (4.8-10.8)
[2024-11-08 08:38] LABS: Alanine Aminotransferase 8.0 U/L (7-52); Albumin Globulin Ratio 0.9 (0.9-2); Alkaline Phosphatase 63.0 U/L (34-104); Anion Gap 7.0 (3-11); Bilirubin,Total 0.4 mg/dl (0.2-1.0); Blood Urea Nitrogen 22.0 mg/dl (6-23); Calcium 8.6 mg/dl (8.6-10.3); Carbon Dioxide 32.0 mmol/L (21-32); Chloride 102.0 mmol/L (98-107); Creatinine Clr Calc Pharmacy 100.1 ml/min; Globulin 3.3 gm/dl (2.5-4.0); Glucose 174.0 mg/dl (70-99(Fasting)); Magnesium 2.0 mg/dl (1.7-2.4); Potassium 3.4 mmol/L (3.5-5.1); Sodium 141.0 mmol/L (136-145); Total Protein 6.3 gm/dl (6.0-8.3)
[2024-11-08] MEDS: POTASSIUM CHLORIDE / WTR 10 MEQ/100 ML PLCT IV SCH (10:37)
[2024-11-08] MEDS: METOPROLOL TARTRATE 1 MG/ML VIAL IV PRN (10:38)
--- NOTE | 2024-11-08 10:39 | Pulmonology Progress Note ---
Date of Service November 08, 2024 Assessment & Plan (1) Atelectasis: (2) Mucus plugging of bronchi: (3) Aspiration pneumonia: (4) Enterovirus infection: (5) Acute hypoxemic respiratory failure: Plan Impression: Debilitated 74-year-old female admitted from longterm after aspiration event being treated for pneumonia with persistent hypoxemia. CT scan shows fairly dense lower lobe consolidation/atelectasis which is likely resulting in VQ mismatching and persistent hypoxemia. CT chest 11/07/2024 personally reviewed: Patchy groundglass opacity appreciated in the right upper lobe Complete collapse of the left lower lobe Right lower lobe supradiaphragmatic atelectasis No significant mediastinal lymphadenopathy 2D echo 11/05/2024: EF 60-65%, grade 1 diastolic dysfunction, mild MR, mild concentric LVH Social history: Lifetime non-smoker. 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 -- Acute hypoxic respiratory failure Likely secondary to mucous plugging of bilateral lower lobe Continue with aggressive upper airway clearance technique --Multifocal aspiration pneumonia Respiratory BioFire was positive for entero-/rhinovirus on 11/03/2024 Procalcitonin 0.04, nasal MRSA negative --A-fib On Eliquis --History of breast cancer Right-sided initial in 1993 s/p lumpectomy and radiation followed by left sided in 1999 and then relapsed on the right side in 2005 Never got chemotherapy Plan: Overall there is improvement in the mucous plugging/atelectasis of the right lower lobe The left lower lobe still is collapsed even on the chest x-ray today. I am going to add 7% hypertonic saline as well as Mucomyst to the regimen along with CoughAssist but I will repeat a chest x-ray tomorrow in the morning if she still has left lower lobe collapse then bronchoscopy will be pursued. Risk and benefit of the procedure explained to the patient in depth. Patient as well as patient's family understand, they want to think about it and then decide whether they would like to do the procedure tomorrow. Will keep the patient n.p.o. after midnight in case if she is agreeable to do the procedure I spent more than 50 minutes looking in the chart, images, discussing with outgoing physician, discussing the plan of care with the patient, RN as well as primary team Please note the above document was generated using voice recognition software. It may contain grammatical, syntax or spelling errors.Any formal questions or concerns about the content, text or information contained within the body of this dictation should be directly addressed to the provider for clarification. Admission and Anticipated Discharge Date Admission Date: November 03, 2024 Subjective Patient seen and examined at bedside. No acute distress, no adverse events overnight Patient's family was in the room at the time of examination She answers the questions with yes no and few words Stated that she is coughing and bringing up phlegm but still feels a lot of phlegm is within her chest Denies any chest pain Was saturating 95% on 7 L, and went down to 4 L Lifetime non-smoker Review of Systems 2 Review of Systems: All systems reviewed & are unremarkable except as noted in Subjective Physical Exam 2 Physical Exam: Constitutional: No acute distress HEENT: EOMI, PERRLA Respiratory system: Decreased air entry bilaterally, no wheeze, positive rhonchi, positive crackles bilaterally CVS: S1-S2 positive, no murmurs or gallops Abdomen: Soft, nontender, nondistended, positive bowel sounds x4 Extremities: +2 pulses bilaterally radialis/ dorsalis pedis, no cyanosis, no edema, right-sided hemiparesis Neuro: Awake alert oriented to self and place Psych: Normal mood and affect G/U: Positive Barry Skin: no rashes, warm and dry Lymphatic: no cervical or axillary lymphadenopathy Results & Data Results & Data Vital Signs (Past 12 Hours) Vital Signs Temp Pulse Pulse Resp BP BP Pulse Ox 11/08/24 07:43 36.5 C 97 H 19 120/74 93 11/08/24 07:24 108 H 20 95 11/08/24 03:54 36.5 C 104 H 20 117/77 96 11/08/24 03:13 113 H 18 95 11/08/24 00:55 100 H 121/65 11/08/24 00:39 141 H 109/70 11/07/24 23:54 36.5 C 82 22 106/71 95 11/07/24 23:18 67 O2 Del Method O2 Flow Rate FiO2 11/08/24 07:43 High Flow Nasal Cannula 6.0 11/08/24 07:24 Nasal Cannula 8 11/08/24 03:54 High Flow Nasal Cannula 55 55 11/08/24 03:13 High Flow Nasal Cannula 55 55 11/08/24 00:55 11/08/24 00:39 11/07/24 23:54 High Flow Nasal Cannula 55 55 11/07/24 23:18 Laboratory Results 11/08/24 07:55 11/08/24 07:55 PG Care Time/CCT Total # of Minutes Spent Total Time Spent with Patient: Total time spent is greater than 50% in coordination of care (as documented) at patient's floor/unit and/or counseling patient: Coding Level of Care Code 50824 SUB INP/OBS CARE 3/50MIN Diagnoses Atelectasis J98.11 Mucus plugging of bronchi T17.500A Aspiration pneumonia J69.0 Enterovirus infection B34.1 Acute hypoxemic respiratory failure J96.01
[2024-11-08] MEDS: METOPROLOL TARTRATE 25 MG TAB PO ONE (12:04)
--- NOTE | 2024-11-08 13:55 | Hospitalist Progress Note ---
Date of Service November 08, 2024 Assessment & Plan (1) Acute hypoxemic respiratory failure: (2) Aspiration pneumonia: (3) Enterovirus infection: (4) Complicated UTI (urinary tract infection): (5) Chronic indwelling Lenz catheter: (6) Hypomagnesemia: (7) Type 2 diabetes mellitus without complication: (8) Atrial fibrillation: (9) On anticoagulant therapy: Plan This is a 74-year-old female who has significant past medical history of atrial fibrillation anticoagulated on Eliquis, T2DM, diabetic neuropathy, HTN, HLD, gouty arthropathy, history of left MCA CVA with right hemiparesis, dysphagia and aphasia, chronic RBBB, history of amputation of toe on left foot, history of breast cancer and depression with anxiety who presents to ED due to concerns for pneumonia from [facility] facility. #Acute hypoxemic respiratory failure #Aspiration Pneumonia in setting of witness Aspiration event at SNF (10/30 choked on grilled cheese) #Entero/Rhinovirus positive (had viral URI sx since 10/27) #Bilateral Lung Atelectasis #Acute Decompensated HFpEF -patient has aspiration CAP on the right side on imaging with cough and leukocytosis -on high flow NC -had aspiration event on Friday requiring Heimlich manouver -MRSA swab negative, ABG/VBGs reassuring -new CT scan personally revealed reveals bilateral small pleural effusions, bilateral atelectasis and worsening HAP -echo revealing diastolic dysfunction -showing improvement in respiratory status Plan: -speech consulted, appreciate recs -appreciate reevaluation given clinical and imaging findings of aspiration -decrease to 20 IV lasix daily, aggressive bronchopulm hygiene -continue deep suctioning given poor cough effort -continue IS, continue flutter valve, continue chest vest (given hemiparesis) -continue zosyn (day 5/7), continue doxycycline IV (day 3/7) -continue hydrocortisone 50mg IV q6hrs for refractory hypoxemia -muccinex, sputum culture, flonase -pulmonology consult, appreciate recs -appreciate consideration of bronchoscopy for airway disease and better visualization #CA- UTI -chronic lenz, recurrent UTI, follows [facility] urology -previous cultures grew kleb, e coli and proteus -continue zosyn #Hypomagnesemia -replenished #T2DM -lantus/novolog per protocol -chronic, stable #PAF on longterm eliquis -continue eliquis, metoprolol and flecanine -pt rate/rhythm controlled #Hx of L MCA CVA with residual aphasia, dysphagia and RHP -on eliquis and repatha - states repatha due 11/03 on day of admission; however recommend pt hold until acute illness improved -can resume when return to SNF I spent a total of 50 minutes in direct patient care, including [id number]-hyqa time with the patient and/or family, reviewing medical records, ordering and reviewing diagnostic tests, and coordinating care with other healthcare providers. This time includes: history taking, physical examination, medical decision making, counseling, ECG interpretation, imaging interpretation, lab interpretation, orders, and education, excluding time spent in the performance of separately billed services. Admission and Anticipated Discharge Date Admission Date: November 03, 2024 Subjective Patient seen and examined at bedside. Patient appears improved today, more vigorous. States she is breathing better. Sister and at bedside, discussed case extensively with them. Review of Systems Review of Systems: -unable to ask full ROS due to chronic d isability Physical Exam Physical Exam: Gen: A&O 3 NAD HEENT: NCAT, EOMI, not icteric. External ears normal. No rhinorrhea. Moist mucous membranes. Neck: Supple, full range of motion, no observable masses, No meningeal sign. Lungs: severe rhonchi in right lung, similar to prior, poor air movement CV: irregular rate, regular rhythm Abdomen: Soft, nondistended, No rebound tenderness. MSK: No joint swelling, no redness. Skin: No rashes, petechiae, lesions. Normal color per patient. Neuro: right hemiparesis is chronic, expressive aphasia Psych: Appropriate for situation. Results & Data Results & Data Vital Signs (Past 12 Hours) Vital Signs Temp Pulse Pulse Resp BP BP Pulse Ox 11/08/24 12:10 114 H 11/08/24 11:00 36.7 C 19 94 11/08/24 10:38 142 H 114/74 11/08/24 07:43 36.5 C 97 H 19 120/74 93 11/08/24 07:24 108 H 20 95 11/08/24 03:54 36.5 C 104 H 20 117/77 96 11/08/24 03:13 113 H 18 95 O2 Del Method O2 Flow Rate FiO2 11/08/24 12:10 11/08/24 11:00 High Flow Nasal Cannula 7.0 11/08/24 10:38 11/08/24 07:43 High Flow Nasal Cannula 6.0 11/08/24 07:24 Nasal Cannula 8 11/08/24 03:54 High Flow Nasal Cannula 55 55 11/08/24 03:13 High Flow Nasal Cannula 55 55 Laboratory Results -personally reviewed, no leukocytosis, pH with metabolic alkalosis, K of 3.4 r eplenished, creatinine at baseline Medications Administered Albuterol (Albuterol 0.083% Nebu Soln 3 Ml Vial) 2.5 mg NEB Q6H PRN; Protocol PRN Reason: Shortness Of Breath Or Wheezing Stop: 12/03/24 12:15 Last Admin: 11/07/24 16:01 Dose: 2.5 mg Documented By: Admin: 11/07/24 07:52 Dose: 2.5 mg Documented By: Admin: 11/06/24 07:41 Dose: 2.5 mg Documented By: RALPH Allopurinol (Allopurinol 300 Mg Tab) 450 mg PO DAILY [facility] Stop: 12/04/24 08:59 Last Admin: 11/08/24 12:05 Dose: 450 mg Documented By: Admin: 11/07/24 07:26 Dose: 450 mg Documented By: Admin: 11/06/24 08:52 Dose: 450 mg Documented By: Admin: 11/05/24 09:09 Dose: 450 mg Documented By: Admin: 11/04/24 08:50 Dose: 450 mg Documented By: KRISTINE Apixaban (Apixaban 5 Mg Tablet) 5 mg PO BID [facility] Stop: 12/03/24 20:59 Last Admin: 11/06/24 08:52 Dose: 5 mg Documented By: Admin: 11/05/24 20:01 Dose: 5 mg Documented By: Admin: 11/05/24 09:13 Dose: 5 mg Documented By: Admin: 11/04/24 21:05 Dose: 5 mg Documented By: Admin: 11/04/24 08:53 Dose: 5 mg Documented By: Admin: 11/03/24 21:00 Dose: 5 mg Documented By: ELIO Diclofenac Sodium (Diclofenac Sod 1% Gel 100 Gm Tube) 2 gm EXT QID [facility]; Protocol Stop: 12/03/24 12:59 Last Admin: 11/08/24 08:41 Dose: 2 gm Documented By: Admin: 11/07/24 20:14 Dose: 2 gm Documented By: Admin: 11/07/24 17:12 Dose: 2 gm Documented By: Admin: 11/07/24 12:42 Dose: 2 gm Documented By: Admin: 11/07/24 07:27 Dose: 2 gm Documented By: Admin: 11/06/24 21:15 Dose: 2 gm Documented By: Admin: 11/06/24 16:47 Dose: Not Given Documented By: Admin: 11/06/24 12:11 Dose: 2 gm Documented By: Admin: 11/06/24 08:53 Dose: 2 gm Documented By: Admin: 11/05/24 20:01 Dose: 2 gm Documented By: Admin: 11/05/24 17:13 Dose: 2 gm Documented By: Admin: 11/05/24 12:26 Dose: 2 gm Documented By: Admin: 11/05/24 09:14 Dose: 2 gm Documented By: Admin: 11/04/24 21:03 Dose: 2 gm Documented By: Admin: 11/04/24 16:33 Dose: 2 gm Documented By: Admin: 11/04/24 12:20 Dose: 2 gm Documented By: Admin: 11/04/24 09:01 Dose: 2 gm Documented By: Admin: 11/03/24 20:58 Dose: 2 gm Documented By: Admin: 11/03/24 16:21 Dose: 2 gm Documented By: Admin: 11/03/24 12:51 Dose: 2 gm Documented By: OO Docusate Sodium (Docusate Sodium 100 Mg Cap) 100 mg PO BID [facility] Stop: 12/03/24 20:59 Last Admin: 11/08/24 12:10 Dose: Not Given Documented By: Admin: 11/07/24 20:18 Dose: Not Given Documented By: Admin: 11/07/24 07:26 Dose: 100 mg Documented By: Admin: 11/06/24 21:15 Dose: 100 mg Documented By: Admin: 11/06/24 09:00 Dose: 100 mg Documented By: Admin: 11/05/24 20:01 Dose: Not Given Documented By: Admin: 11/05/24 09:07 Dose: 100 mg Documented By: Admin: 11/04/24 21:05 Dose: Not Given Documented By: Admin: 11/04/24 08:49 Dose: 100 mg Documented By: Admin: 11/03/24 21:03 Dose: Not Given Documented By: ELIO Ezetimibe (Ezetimibe 10 Mg Tab) 10 mg PO DAILY [facility] Stop: 12/04/24 08:59 Last Admin: 11/08/24 12:04 Dose: 10 mg Documented By: Admin: 11/07/24 07:25 Dose: 10 mg Documented By: Admin: 11/06/24 08:51 Dose: 10 mg Documented By: Admin: 11/05/24 09:12 Dose: 10 mg Documented By: Admin: 11/04/24 08:55 Dose: 10 mg Documented By: KRISTINE Escitalopram Oxalate (Escitalopram Oxalate 10 Mg Tab) 10 mg PO DAILY [facility] Stop: 12/04/24 08:59 Last Admin: 11/08/24 12:11 Dose: 10 mg Documented By: Admin: 11/07/24 07:28 Dose: 10 mg Documented By: Admin: 11/06/24 08:52 Dose: 10 mg Documented By: Admin: 11/05/24 09:19 Dose: 10 mg Documented By: Admin: 11/04/24 08:56 Dose: 10 mg Documented By: KRISTINE Flecainide Acetate (Flecainide Acetate 100 Mg Tablet) 100 mg PO BID [facility] Stop: 12/03/24 20:59 Last Admin: 11/08/24 12:03 Dose: 100 mg Documented By: Admin: 11/07/24 20:18 Dose: Not Given Documented By: Admin: 11/07/24 07:28 Dose: 100 mg Documented By: Admin: 11/06/24 21:16 Dose: 100 mg Documented By: Admin: 11/06/24 08:52 Dose: 100 mg Documented By: Admin: 11/05/24 20:01 Dose: 100 mg Documented By: Admin: 11/05/24 09:11 Dose: 100 mg Documented By: Admin: 11/04/24 21:04 Dose: 100 mg Documented By: Admin: 11/04/24 08:55 Dose: 100 mg Documented By: Admin: 11/03/24 20:59 Dose: 100 mg Documented By: ELIO Fluticasone Propionate (Fluticasone Propionate Na Spr 16 Gm Btl) 2 sprays NA DAILY [facility] Stop: 12/03/24 12:59 Last Admin: 11/08/24 08:42 Dose: 2 sprays Documented By: Admin: 11/07/24 07:27 Dose: 2 sprays Documented By: Admin: 11/06/24 08:53 Dose: 2 sprays Documented By: Admin: 11/05/24 09:14 Dose: 2 sprays Documented By: Admin: 11/04/24 09:01 Dose: 2 sprays Documented By: Admin: 11/03/24 12:51 Dose: 2 sprays Documented By: KRISTINE Gabapentin (Gabapentin 300 Mg Cap) 300 mg PO HS [facility] Stop: 12/03/24 20:59 Last Admin: 11/07/24 20:18 Dose: Not Given Documented By: Admin: 11/06/24 21:16 Dose: 300 mg Documented By: Admin: 11/05/24 20:02 Dose: 300 mg Documented By: Admin: 11/04/24 21:05 Dose: 300 mg Documented By: Admin: 11/03/24 21:00 Dose: 300 mg Documented By: ELIO Guaifenesin (Guaifenesin 600 Mg Tabcr) 1,200 mg PO Q12 [facility] Stop: 12/03/24 20:59 Last Admin: 11/08/24 12:04 Dose: 1,200 mg Documented By: Admin: 11/07/24 20:18 Dose: Not Given Documented By: Admin: 11/07/24 07:26 Dose: 1,200 mg Documented By: Admin: 11/06/24 21:16 Dose: 1,200 mg Documented By: Admin: 11/06/24 08:51 Dose: 1,200 mg Documented By: Admin: 11/05/24 20:02 Dose: 1,200 mg Documented By: Admin: 11/05/24 09:08 Dose: 1,200 mg Documented By: Admin: 11/04/24 21:04 Dose: 1,200 mg Documented By: Admin: 11/04/24 08:52 Dose: 1,200 mg Documented By: Admin: 11/03/24 20:59 Dose: 1,200 mg Documented By: VK Piperacillin Sod/Tazobactam Sod (Zosyn) 4.5 gm in 100 mls @ 25 mls/hr IV Q8H [facility]; Protocol Stop: 11/09/24 13:59 Last Infusion: 11/08/24 09:07 Dose: Infused Documented By: Admin: 11/08/24 05:07 Dose: 25 mls/hr Documented By: Infusion: 11/08/24 02:40 Dose: Infused Documented By: Admin: 11/07/24 22:39 Dose: 25 mls/hr Documented By: Infusion: 11/07/24 17:18 Dose: Infused Documented By: Admin: 11/07/24 13:11 Dose: 25 mls/hr Documented By: Infusion: 11/07/24 09:44 Dose: Infused Documented By: Admin: 11/07/24 05:43 Dose: 25 mls/hr Documented By: Infusion: 11/07/24 01:25 Dose: Infused Documented By: Admin: 11/06/24 21:23 Dose: 25 mls/hr Documented By: Infusion: 11/06/24 19:38 Dose: Infused Documented By: Admin: 11/06/24 14:53 Dose: 25 mls/hr Documented By: Infusion: 11/06/24 09:48 Dose: Infused Documented By: Admin: 11/06/24 05:45 Dose: 25 mls/hr Documented By: Infusion: 11/06/24 01:23 Dose: Infused Documented By: Admin: 11/05/24 21:23 Dose: 25 mls/hr Documented By: Infusion: 11/05/24 19:11 Dose: Infused Documented By: Admin: 11/05/24 15:11 Dose: 25 mls/hr Documented By: Infusion: 11/05/24 09:29 Dose: Infused Documented By: Admin: 11/05/24 05:16 Dose: 25 mls/hr Documented By: Infusion: 11/05/24 01:22 Dose: Infused Documented By: Admin: 11/04/24 21:22 Dose: 25 mls/hr Documented By: Infusion: 11/04/24 19:13 Dose: Infused Documented By: Admin: 11/04/24 15:13 Dose: 25 mls/hr Documented By: JenniferO Doxycycline Hyclate 100 mg/ (Dextrose) 100 mls @ 50 mls/hr IV Q12H [facility] Stop: 11/13/24 14:59 Last Infusion: 11/08/24 04:27 Dose: Infused Documented By: Admin: 11/08/24 02:25 Dose: 50 mls/hr Documented By: Infusion: 11/07/24 16:13 Dose: Infused Documented By: Admin: 11/07/24 14:04 Dose: 50 mls/hr Documented By: Infusion: 11/07/24 05:43 Dose: Infused Documented By: Admin: 11/07/24 03:42 Dose: 50 mls/hr Documented By: Infusion: 11/06/24 17:08 Dose: Infused Documented By: Admin: 11/06/24 14:59 Dose: 50 mls/hr Documented By: CONSTANTINE Hydrocortisone Sodium (Succinate 50 mg/ Syringe) 1 mls @ 4 mls/min IV Q6H [facility] Stop: 12/07/24 12:44 Last Admin: 11/08/24 12:53 Dose: 4 mls/min Documented By: Admin: 11/08/24 06:26 Dose: 4 mls/min Documented By: Admin: 11/08/24 00:41 Dose: 4 mls/min Documented By: Admin: 11/07/24 17:23 Dose: 4 mls/min Documented By: Admin: 11/07/24 13:10 Dose: 4 mls/min Documented By: CONSTANTINE Insulin Aspart (Insulin Aspart Per Unit Charge) 0 units SC Q6 [facility] Stop: 12/07/24 17:59 Last Admin: 11/08/24 12:50 Dose: 2 units Documented By: DAVID Co-signed By: MAYELIN Admin: 11/08/24 06:26 Dose: 2 units Documented By: AMY Co-signed By: PERRI Admin: 11/08/24 00:41 Dose: 2 units Documented By: AMY Co-signed By: AVINASH Admin: 11/07/24 17:21 Dose: 3 units Documented By: CONSTANTINE Co-signed By: GRACIELA Melatonin (Melatonin 3 Mg Tab) 3 mg PO HS [facility] Stop: 12/03/24 20:59 Last Admin: 11/07/24 20:18 Dose: Not Given Documented By: Admin: 11/06/24 21:15 Dose: 3 mg Documented By: Admin: 11/05/24 20:01 Dose: 3 mg Documented By: Admin: 11/04/24 21:04 Dose: 3 mg Documented By: Admin: 11/03/24 20:59 Dose: 3 mg Documented By: ELIO Metoprolol Tartrate (Metoprolol Tartrate 1 Mg/Ml Vial) 5 mg IV Q4 PRN PRN Reason: sustained HR over 120 Stop: 12/08/24 11:59 Last Admin: 11/08/24 10:38 Dose: 5 mg Documented By: DAVID Pantoprazole Sodium (Pantoprazole 40 Mg Tab) 40 mg PO DAILY [facility] Stop: 12/04/24 08:59 Last Admin: 11/08/24 12:06 Dose: 40 mg Documented By: Admin: 11/07/24 07:26 Dose: 40 mg Documented By: Admin: 11/06/24 08:52 Dose: 40 mg Documented By: Admin: 11/05/24 09:12 Dose: 40 mg Documented By: Admin: 11/04/24 08:56 Dose: 40 mg Documented By: KRISTINE Polyethylene Glycol (Polyethylene (Miralax) 17 Gm Pack) 17 gm PO DAILY [facility] Stop: 12/04/24 08:59 Last Admin: 11/08/24 12:09 Dose: Not Given Documented By: Admin: 11/07/24 07:23 Dose: 17 gm Documented By: Admin: 11/06/24 09:00 Dose: 17 gm Documented By: Admin: 11/05/24 09:16 Dose: Not Given Documented By: Admin: 11/04/24 08:58 Dose: 17 gm Documented By: KRISTINE (7) Type 2 diabetes mellitus without complication Diabetes mellitus longterm insulin use: without long term care administrator use Qualified Code(s): E11.9 - Type 2 diabetes mellitus without complications
[2024-11-08] MEDS: ACETYLCYSTEINE 20% INHAL SOLN 4ML ***DISPENSED BY RESP. INH SCH ×2 (15:30→19:47)
--- NOTE | 2024-11-08 15:33 | Electrocardiogram Report ---
Test Reason : Blood Pressure : */* mmHG Vent. Rate : 104 BPM Atrial Rate : 110 BPM P-R Int : 200 ms QRS Dur : 140 ms QT Int : 354 ms P-R-T Axes : 70 54 -51 degrees QTcB Int : 465 ms Poor data quality, interpretation may be adversely affected Atrial fibrillation Right bundle branch block Marked T-wave abnormality, consider inferolateral ischemia Abnormal ECG When compared with ECG of 03-Nov-2024 07:36, Atrial fibrillation is now Present T wave inversion more evident in Lateral leads Confirmed by Koffi Longoria ([id number]) on 11/08/2024 3:32:56 PM Referred By: Marine Berger Confirmed By: Koffi Longoria
[2024-11-08] MEDS: SODIUM CHLOR 7% 4 ML NEB NEB SCH (19:44)
[2024-11-08] MEDS: METOPROLOL TARTRATE 50 MG TAB PO SCH (20:14)
[2024-11-08] MEDS: INSULIN ASPART PER UNIT CHARGE SC SCH (20:29)
[2024-11-09 05:30] LABS: Base Excess VBG 10.1 mEq/L; HCO3 VBG 36 mmol/L; Oxygen Saturation VBG 64.4 %; PCO2 VBG 50 mmHg (38-50); PO2 VBG 38 mmHg; pH VBG 7.46 (7.36-7.41)
[2024-11-09 05:37] LABS: Hematocrit (blood only) 39.3 % (37.0-47.0); Hemoglobin 12.8 g/dl (12.0-16.0); Mean Corpuscular Hemoglobin 29.2 pg (25.0-34.0); Mean Corpuscular Volume 89.7 fL (80.0-100.0); Platelet Count 556 K/uL (130-400); RDW Standard Deviation 54.1 fL (36.4-46.3); Red Blood Count 4.38 M/uL (4.20-5.40); White Blood Count 9.94 K/ul (4.8-10.8)
[2024-11-09 05:54] LABS: Alanine Aminotransferase 12.0 U/L (7-52); Albumin Globulin Ratio 0.8 (0.9-2); Alkaline Phosphatase 63.0 U/L (34-104); Anion Gap 7.0 (3-11); Bilirubin,Total 0.4 mg/dl (0.2-1.0); Blood Urea Nitrogen 28.0 mg/dl (6-23); Calcium 8.7 mg/dl (8.6-10.3); Carbon Dioxide 32.0 mmol/L (21-32); Chloride 101.0 mmol/L (98-107); Creatinine Clr Calc Pharmacy 82.5 ml/min; Globulin 3.3 gm/dl (2.5-4.0); Glucose 205.0 mg/dl (70-99(Fasting)); Magnesium 1.7 mg/dl (1.7-2.4); Potassium 3.5 mmol/L (3.5-5.1); Sodium 140.0 mmol/L (136-145); Total Protein 6.0 gm/dl (6.0-8.3)
--- NOTE | 2024-11-09 08:17 | Pulmonology Progress Note ---
Date of Service November 09, 2024 Assessment & Plan (1) Atelectasis: (2) Mucus plugging of bronchi: (3) Aspiration pneumonia: (4) Enterovirus infection: (5) Acute hypoxemic respiratory failure: Plan Impression: Debilitated 74-year-old female admitted from halfway after aspiration event being treated for pneumonia with persistent hypoxemia. CT scan shows fairly dense lower lobe consolidation/atelectasis which is likely resulting in VQ mismatching and persistent hypoxemia. CT chest 11/07/2024 personally reviewed: Patchy groundglass opacity appreciated in the right upper lobe Complete collapse of the left lower lobe, no significant change compared to 11/04/2024 Right lower lobe supradiaphragmatic atelectasis, improved compared to CT chest 11/04/2024 No significant mediastinal lymphadenopathy Patient did have CT abdomen pelvis done April 2024 which did not show collapse/atelectasis of bilateral lower lobes 2D echo 11/05/2024: EF 60-65%, grade 1 diastolic dysfunction, mild MR, mild concentric LVH Social history: Lifetime non-smoker. 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 -- Acute hypoxic respiratory failure Likely secondary to mucous plugging of bilateral lower lobe Continue with aggressive upper airway clearance technique --Multifocal aspiration pneumonia Respiratory BioFire was positive for entero-/rhinovirus on 11/03/2024 Procalcitonin 0.04, nasal MRSA negative --A-fib On Eliquis --History of breast cancer Right-sided initial in 1993 s/p lumpectomy and radiation followed by left sided in 1999 and then relapsed on the right side in 2005 Never got chemotherapy Plan: Continue with 7% hypertonic saline, Mucomyst along with CoughAssist Initially when I saw the patient in the morning, patient said that she is not yet decided whether she would want the procedure done. Later in the morning patient's family came by and the patient decided that she would like to proceed with the procedure today. Given the tenacious nature of the patient's secretions we will do the bronchoscopy in the ICU. Risk and benefit of the procedure explained to the patient in depth. Patient understands and wants to go ahead with the procedures Consent signed, witnessed and put in the chart Last dose of Eliquis was 11/06/2024 I spent more than 50 minutes looking in the chart, images, discussing the plan of care with the patient, RN as well as primary team Please note the above document was generated using voice recognition software. It may contain grammatical, syntax or spelling errors.Any formal questions or concerns about the content, text or information contained within the body of this dictation should be directly addressed to the provider for clarification. Admission and Anticipated Discharge Date Admission Date: November 03, 2024 Subjective Patient seen and examined at bedside. No acute distress, no adverse events overnight She was saturating 95% on 8 L, I went down to 5 L She has been using CoughAssist as well as nebulized treatment She is very compliant with it Denied any chest pain, no nausea or vomiting Review of Systems 2 Review of Systems: All systems reviewed & are unremarkable except as noted in Subjective Physical Exam 2 Physical Exam: Constitutional: No acute distress HEENT: EOMI, PERRLA Respiratory system: Decreased air entry bilaterally, no wheeze, positive rhonchi, positive crackles bilaterally CVS: S1-S2 positive, no murmurs or gallops Abdomen: Soft, nontender, nondistended, positive bowel sounds x4 Extremities: +2 pulses bilaterally radialis/ dorsalis pedis, no cyanosis, no edema, right-sided hemiparesis Neuro: Awake alert oriented to self and place Psych: Normal mood and affect G/U: Positive Barry Skin: no rashes, warm and dry Lymphatic: no cervical or axillary lymphadenopathy Results & Data Results & Data Vital Signs (Past 12 Hours) Vital Signs Temp Pulse Pulse Resp BP Pulse Ox O2 Del Method 11/09/24 07:33 36.6 C 96 H 18 107/72 91 Nasal Cannula 11/09/24 07:27 88 20 93 Nasal Cannula 11/09/24 07:07 83 11/09/24 03:19 36.6 C 80 17 105/76 93 Nasal Cannula 11/08/24 23:33 70 11/08/24 22:28 36.5 C 74 20 102/65 98 Nasal Cannula O2 Flow Rate 11/09/24 07:33 5 11/09/24 07:27 5 11/09/24 07:07 11/09/24 03:19 4 11/08/24 23:33 11/08/24 22:28 4 Laboratory Results 11/09/24 05:23 11/09/24 05:23 PG Care Time/CCT Total # of Minutes Spent Total Time Spent with Patient: Total time spent is greater than 50% in coordination of care (as documented) at patient's floor/unit and/or counseling patient: Coding Level of Care Code 05787 SUB INP/OBS CARE 350MIN Diagnoses Atelectasis J98.11 Mucus plugging of bronchi T17.500A Aspiration pneumonia J69.0 Enterovirus infection B34.1 Acute hypoxemic respiratory failure J96.01
[2024-11-09] MEDS: FUROSEMIDE INJ 20 MG/2 ML VIAL IV SCH (08:24)
--- NOTE | 2024-11-09 08:44 | XRay Report ---
XR chest 1V portable CLINICAL HISTORY: f/u COMPARISON STUDY: 11/08/2024 FINDINGS: Stable mild cardiomegaly without pulmonary vascular congestion. There is stable consolidati on at the lung bases, left greater than right. No pneumothorax. IMPRESSION: Stable exam. ACT 112: Negative or not required by law. Electronically signed by: Miguel Duarte M.D. 11/09/2024 8:43 AM
--- NOTE | 2024-11-09 12:12 | Pre Anesthesia Assessment ---
Date of Service November 09, 2024 Pre Sedation Assessment Vital Signs Temp Pulse Pulse Pulse Resp BP Pulse Ox 11/09/24 11:46 36.6 C 68 24 138/98 95 11/09/24 11:02 36.5 C 80 18 112/74 97 11/09/24 10:05 11/09/24 07:33 36.6 C 96 H 18 107/72 91 11/09/24 07:27 88 20 93 11/09/24 07:07 83 11/09/24 03:19 36.6 C 80 17 105/76 93 11/08/24 23:33 70 11/08/24 22:28 36.5 C 74 20 102/65 98 11/08/24 19:48 103 H 24 98 11/08/24 19:28 11/08/24 19:25 36.4 C L 107 H 20 105/69 93 11/08/24 16:40 36.3 C L 116 H 17 92/61 L 92 11/08/24 15:40 97 H 21 94 11/08/24 15:07 88 O2 Del Method O2 Flow Rate 11/09/24 11:46 High Flow Nasal Cannula 5 11/09/24 11:02 Nasal Cannula 5 11/09/24 10:05 High Flow Nasal Cannula 5 11/09/24 07:33 Nasal Cannula 5 11/09/24 07:27 Nasal Cannula 5 11/09/24 07:07 11/09/24 03:19 Nasal Cannula 4 11/08/24 23:33 11/08/24 22:28 Nasal Cannula 4 11/08/24 19:48 Nasal Cannula 4 11/08/24 19:28 High Flow Nasal Cannula 4 11/08/24 19:25 High Flow Nasal Cannula 4 11/08/24 16:40 Nasal Cannula 4 11/08/24 15:40 Nasal Cannula 4 11/08/24 15:07 Pre-Sedation Airway Assessment Smoking Status: Never smoker Mallampati Class: III ASA: ASA3 Procedure Planning Contraindications for Sedation: none Current Medications Reviewed: Yes Notes The planned sedation has been discussed with the patient. Informed Consent was obtained. I have identified the patient, determined the appropriateness of sedation and have assessed the patient immediately prior to the procedure. All medicine(s) and interventions are by my order.
--- NOTE | 2024-11-09 12:14 | Procedure Note ---
Procedure Note: Bronchoscopy Procedure PREOPERATIVE DIAGNOSIS: Left lower lobe collapse POSTOPERATIVE DIAGNOSIS: Mucous plugging of the left lower lobe with friable left-sided mucosa PROCEDURE PERFORMED: Flexible fiberoptic bronchoscopy with mucous plug clearing and bronchial lavage COMPLICATIONS: None. INDICATION: Mucous plugging PROCEDURE: After obtaining an informed consent, the patient was brought to the Bronchoscopy Suite. The patient had appropriate oxygen, blood pressure, heart rate, and respiratory rate monitoring applied and monitored continuously throughout the procedure. Supplemental oxygen via nasal cannula as per nursing records was applied to the nasopharynx with adequate saturations achieved. Topical anesthesia with nebulized 1% lidocaine was achieved. Subsequent to this, the patient was premedicated with 4 mg of midazolam and 100 mcg of fentanyl. Sedation start: 12:23 PM Sedation end: 12:40 PM Bronchoscope was advanced through oral cavity with the help of a bite-block Upper Airway: The oropharynx and larynx were well visualized and showed normal mucosa There was normal vocal cord motion without masses or lesions. Additional topical anesthesia with 1% lidocaine was applied to the trachea and guille. Thick secretions were appreciated around the vallecula which were suctioned out. The trachea appeared normal.The bronchoscope was then advanced through the guille, which was sharp. Grayish-white secretions were appreciated right at the guille coming from the left side. The scope was then advanced into the right main stem and each segment, subsegement in the right upper lobe, right middle lobe and right lower lobe were visualized. There was minimal amount of clear secretion which were suctioned out. There were no other findings including evidence of mass, anatomic distortions, or hemorrhage. The bronchoscope was subsequently withdrawn and advanced into the left mainstem. Mucous plugging was appreciated at the distal left main. The mucosa was edematous and very friable and bled easily even with suctioning. It was difficult to pass the scope because of the significant edema. No specific masses or other lesions were identified throughout the tracheobronchial tree on the left. There was moderate amount of thick cornelius secretion which were suctioned out. The bronchoscope was then wedged in the left lower lobe and bronchoalveolar lavage samples were obtained. 60 ml of saline was instilled and 25 ml of fluid was aspirated back.The bronchoscope was withdrawn and the area was suctioned clear. I did utilize cold saline because of oozing appreciated from the left lower lobe. At the end of the procedure there was no clear bleeding appreciated. The bronchoscope was then withdrawn to the mainstem. The area was suctioned clear. The bronchoscope was then withdrawn. The patient tolerated the procedure well without evidence of desaturation or complications. Bronchoalveolar lavage samples were sent for cell count, Gram stain and bacterial culture, AFB culture and smear, fungal culture and smear and cytology. Estimated blood loss: Less than 5 mL Recommendations: Follow-up micro and cytology Follow-up chest x-ray Please note the above document was generated using voice recognition software. It may contain grammatical, syntax or spelling errors.Any formal questions or concerns about the content, text or information contained within the body of this dictation should be directly addressed to the provider for clarification. [facility] [place] Procedure Codes (Charges) Pulmonary/Thoracic Procedure 1: Pulmonary and Thoracic: 54442 Bronchoscopy, clear airways Procedure 2: Pulmonary and Thoracic: 43086 Dx bronchoscopy/BAL Sedation/Anesthesia Procedure 1: Sedation/Anesthesia: 27855 Mod Sedation by the same physician;Init15 Min C hild Age 5 & Up
[2024-11-09] MEDS: MIDAZOLAM HCL 1 MG/ML 2ML VIAL IV STA (12:23)
--- NOTE | 2024-11-09 12:50 | Post Anesthesia Assessment ---
Date of Service November 09, 2024 Post Sedation Assessment Vital Signs Temp Pulse Pulse Pulse Resp BP Pulse Ox 11/09/24 11:46 36.6 C 68 24 138/98 95 11/09/24 11:02 36.5 C 80 18 112/74 97 11/09/24 10:05 11/09/24 07:33 36.6 C 96 H 18 107/72 91 11/09/24 07:27 88 20 93 11/09/24 07:07 83 11/09/24 03:19 36.6 C 80 17 105/76 93 11/08/24 23:33 70 11/08/24 22:28 36.5 C 74 20 102/65 98 11/08/24 19:48 103 H 24 98 11/08/24 19:28 11/08/24 19:25 36.4 C L 107 H 20 105/69 93 11/08/24 16:40 36.3 C L 116 H 17 92/61 L 92 11/08/24 15:40 97 H 21 94 11/08/24 15:07 88 O2 Del Method O2 Flow Rate 11/09/24 11:46 High Flow Nasal Cannula 5 11/09/24 11:02 Nasal Cannula 5 11/09/24 10:05 High Flow Nasal Cannula 5 11/09/24 07:33 Nasal Cannula 5 11/09/24 07:27 Nasal Cannula 5 11/09/24 07:07 11/09/24 03:19 Nasal Cannula 4 11/08/24 23:33 11/08/24 22:28 Nasal Cannula 4 11/08/24 19:48 Nasal Cannula 4 11/08/24 19:28 High Flow Nasal Cannula 4 11/08/24 19:25 High Flow Nasal Cannula 4 11/08/24 16:40 Nasal Cannula 4 11/08/24 15:40 Nasal Cannula 4 11/08/24 15:07 Discharge Sedation Level of Care: Fast Track Phase II Post Sedation Plan On clinical assessment, the patient appears to have tolerated the sedation without complications. Patient is recovering as anticipated. Patient will continue to be monitored by nursing and may be discharged when sedation discharge criteria are met per below protocol. Upon Completions of procedure up to 15 minutes continue every 5 minute vital signs and the P.A.R. score; then discharge to a Phase I or Fast Track to Phase II per the following guidelines: * Discharge Patient to appropriate Phase II area if PAR is 8 or greater or return to pre- procedure baseline. The post - procedure orders will be as directed. * If PAR score is less than 8 or not return to pre-procedure baseline then patient will follow Phase I monitoring till PAR is reached for Phase II. The Phase I may be done in procedure room or may call to secure a Phase I area. * If naloxone or flumazenil are used for reversal, hold in Phase I for continued monitoring from when last reversal dose was given for a minimum of 60 minutes or longer pending the nurse and/or physician discretion of patient condition before discharge to Phase II. Please call the Sedation Physician to re-evaluate and complete post-note for discharge to Phase II area. Do NOT discharge from procedure sedation or Phase 1 until post- sedation evaluation note is complete by procedure /sedation MD Sedation Discharge Instructions to be given to the patient at discharge to home.
--- NOTE | 2024-11-09 13:22 | XRay Report ---
XR chest 1V portable CLINICAL HISTORY: Post Bronchoscopy COMPARISON STUDY: 11/09/2024 FINDINGS: Heart size and pulmonary vasculature are normal. There is stable rounded opacity at the rig ht lung base. There is persistent opacity at the left lung base with partial obscuration of the left hemidiaphragm, mildly improved. There is no pneumothorax. IMPRESSION: No pneumothorax. Otherwise as described. ACT 112: Negative or not required by law. Electronically signed by: Miguel Duarte M.D. 11/09/2024 1:20 PM
[2024-11-09 14:19] LABS: Lymphocyte Body Fluid Man 4 %; Neutrophil Body Fluid Man 96 %
[2024-11-09] MEDS: MIDAZOLAM HCL 5 MG/ML 2ML VIAL ONE (14:25)
--- NOTE | 2024-11-09 15:52 | Hospitalist Progress Note ---
Date of Service November 09, 2024 Assessment & Plan (1) Acute hypoxemic respiratory failure: (2) Aspiration pneumonia: (3) Enterovirus infection: (4) Complicated UTI (urinary tract infection): (5) Chronic indwelling Lenz catheter: (6) Hypomagnesemia: (7) Type 2 diabetes mellitus without complication: (8) Atrial fibrillation: (9) On anticoagulant therapy: Plan This is a 74-year-old female who has significant past medical history of atrial fibrillation anticoagulated on Eliquis, T2DM, diabetic neuropathy, HTN, HLD, gouty arthropathy, history of left MCA CVA with right hemiparesis, dysphagia and aphasia, chronic RBBB, history of amputation of toe on left foot, history of breast cancer and depression with anxiety who presents to ED due to concerns for pneumonia from shelter facility. #Acute hypoxemic respiratory failure #Aspiration Pneumonia in setting of witness Aspiration event at SNF (10/30 choked on grilled cheese) #Hx of Recent Entero/Rhinovirus #Bilateral Lung Atelectasis #Acute Decompensated HFpEF -patient has aspiration CAP on the right side on imaging with cough and leukocytosis -on high flow NC, oxymask post bronch -had aspiration event on Friday requiring Heimlich manouver -MRSA swab negative, ABG/VBGs reassuring -new CT scan personally revealed reveals bilateral small pleural effusions, bilateral atelectasis and worsening HAP -echo revealing diastolic dysfunction -has stable but overall improved respiratory status since admission Plan: -speech consulted, appreciate recs -continue 20 IV lasix daily, aggressive bronchopulm hygiene -continue deep suctioning given poor cough effort -continue IS, continue flutter valve, continue chest vest (given hemiparesis) -continue zosyn (day 6/7), continue doxycycline IV (day 4/7) -continue hydrocortisone 50mg IV q6hrs for refractory hypoxemia -muccinex, sputum culture, flonase -pulmonology consult, appreciate recs -s/p bronchoscopy on 11/09/2024 with significant airway debris removal, complex anatomy, significant inflammation #CA- UTI -chronic lenz, recurrent UTI, [place] [facility] -previous cultures grew kleb, e coli and proteus -continue zosyn #Hypomagnesemia -replenished #T2DM -lantus/novolog per protocol -chronic, stable #PAF on correction eliquis -continue eliquis, metoprolol and flecanine -pt rate/rhythm controlled #Hx of L MCA CVA with residual aphasia, dysphagia and RHP -on eliquis and repatha, holding repatha at this time -can resume when return to SNF I spent a total of 50 minutes in direct patient care, including [id number] time with the patient and/or family, reviewing medical records, ordering and reviewing diagnostic tests, and coordinating care with other healthcare providers. This time includes: history taking, physical examination, medical decision making, counseling, ECG interpretation, imaging interpretation, lab interpretation, orders, and education, excluding time spent in the performance of separately billed services. Admission and Anticipated Discharge Date Admission Date: November 03, 2024 Subjective Patient seen and examined at bedside. Patient seen after bronch, feels ok at this time. States she feels a little confused. No pain, some SOB. Review of Systems Review of Systems: -unable to ask full ROS due to chronic d isability Physical Exam Physical Exam: Gen: A&O 3 NAD HEENT: NCAT, EOMI, not icteric. External ears normal. No rhinorrhea. Moist mucous membranes. Neck: Supple, full range of motion, no observable masses, No meningeal sign. Lungs: bilateral rhonchi, improved slightly from prior CV: RRR Abdomen: Soft, nondistended, No rebound tenderness. MSK: No joint swelling, no redness. Skin: No rashes, petechiae, lesions. Normal color per patient. Neuro: right hemiparesis is chronic, expressive aphasia Psych: Appropriate for situation. Results & Data Results & Data Vital Signs (Past 12 Hours) Vital Signs Temp Pulse Pulse Pulse Resp BP BP 11/09/24 15:48 36.5 C 59 L 27 H 93/59 L 11/09/24 13:48 63 91/61 L 11/09/24 13:42 11/09/24 13:11 60 25 H 99/61 L 11/09/24 13:00 60 59 L 24 134/70 11/09/24 12:56 57 L 24 97/61 L 11/09/24 12:41 145/77 H 11/09/24 12:41 60 26 H 145/77 H 11/09/24 12:38 72 28 H 157/80 H 11/09/24 12:37 144/91 H 11/09/24 12:37 144/91 H 11/09/24 12:35 152/83 H 11/09/24 12:33 63 27 H 168/93 H 11/09/24 12:24 56 L 30 H 140/73 11/09/24 12:23 56 L 30 H 140/73 11/09/24 11:46 11/09/24 11:46 36.6 C 68 24 138/98 11/09/24 11:02 36.5 C 80 18 112/74 11/09/24 10:05 11/09/24 07:33 36.6 C 96 H 18 107/72 11/09/24 07:27 88 20 11/09/24 07:07 83 Pulse Ox O2 Del Method O2 Flow Rate 11/09/24 15:48 93 Oxymask 15 11/09/24 13:48 95 High Flow Nasal Cannula 5 11/09/24 13:42 Nasal Cannula 11/09/24 13:11 95 High Flow Nasal Cannula 5 11/09/24 13:00 95 High Flow Nasal Cannula 10 11/09/24 12:56 98 High Flow Nasal Cannula 15 11/09/24 12:41 11/09/24 12:41 96 High Flow Nasal Cannula 15 11/09/24 12:38 95 High Flow Nasal Cannula 15 11/09/24 12:37 11/09/24 12:37 11/09/24 12:35 11/09/24 12:33 100 High Flow Nasal Cannula 15 11/09/24 12:24 98 High Flow Nasal Cannula 15 11/09/24 12:23 98 High Flow Nasal Cannula 15 11/09/24 11:46 High Flow Nasal Cannula 5 11/09/24 11:46 95 High Flow Nasal Cannula 5 11/09/24 11:02 97 Nasal Cannula 5 11/09/24 10:05 High Flow Nasal Cannula 5 11/09/24 07:33 91 Nasal Cannula 5 11/09/24 07:27 93 Nasal Cannula 5 11/09/24 07:07 Laboratory Results -personally reviewed, WBC stable, Hgb stable, creatinine stable Medications Administered Acetylcysteine (Acetylcysteine 20% Inhal Soln 4ml Dispensed By Resp.) 5 ml INH BIDR ADRIANA Stop: 12/08/24 18:59 Last Admin: 11/09/24 07:24 Dose: 5 ml Documented By: Admin: 11/08/24 19:47 Dose: 5 ml Documented By: ANGEL Albuterol (Albuterol 0.083% Nebu Soln 3 Ml Vial) 2.5 mg NEB Q6H PRN; Protocol PRN Reason: Shortness Of Breath Or Wheezing Stop: 12/03/24 12:15 Last Admin: 11/09/24 07:24 Dose: 2.5 mg Documented By: Admin: 11/08/24 19:45 Dose: 2.5 mg Documented By: Admin: 11/07/24 16:01 Dose: 2.5 mg Documented By: Admin: 11/07/24 07:52 Dose: 2.5 mg Documented By: Admin: 11/06/24 07:41 Dose: 2.5 mg Documented By: RALPH Allopurinol (Allopurinol 300 Mg Tab) 450 mg PO DAILY [facility] Stop: 12/04/24 08:59 Last Admin: 11/09/24 10:51 Dose: Not Given Documented By: Admin: 11/08/24 12:05 Dose: 450 mg Documented By: Admin: 11/07/24 07:26 Dose: 450 mg Documented By: Admin: 11/06/24 08:52 Dose: 450 mg Documented By: Admin: 11/05/24 09:09 Dose: 450 mg Documented By: Admin: 11/04/24 08:50 Dose: 450 mg Documented By: KRISTINE Apixaban (Apixaban 5 Mg Tablet) 5 mg PO BID [facility] Stop: 12/03/24 20:59 Last Admin: 11/09/24 08:23 Dose: Not Given Documented By: Admin: 11/06/24 08:52 Dose: 5 mg Documented By: Admin: 11/05/24 20:01 Dose: 5 mg Documented By: Admin: 11/05/24 09:13 Dose: 5 mg Documented By: Admin: 11/04/24 21:05 Dose: 5 mg Documented By: Admin: 11/04/24 08:53 Dose: 5 mg Documented By: Admin: 11/03/24 21:00 Dose: 5 mg Documented By: VK Diclofenac Sodium (Diclofenac Sod 1% Gel 100 Gm Tube) 2 gm EXT QID ADRIANA; Protocol Stop: 12/03/24 12:59 Last Admin: 11/09/24 08:22 Dose: 2 gm Documented By: Admin: 11/08/24 20:14 Dose: 2 gm Documented By: Admin: 11/08/24 17:14 Dose: 2 gm Documented By: Admin: 11/08/24 15:48 Dose: Not Given Documented By: Admin: 11/08/24 08:41 Dose: 2 gm Documented By: Admin: 11/07/24 20:14 Dose: 2 gm Documented By: Admin: 11/07/24 17:12 Dose: 2 gm Documented By: Admin: 11/07/24 12:42 Dose: 2 gm Documented By: Admin: 11/07/24 07:27 Dose: 2 gm Documented By: Admin: 11/06/24 21:15 Dose: 2 gm Documented By: Admin: 11/06/24 16:47 Dose: Not Given Documented By: Admin: 11/06/24 12:11 Dose: 2 gm Documented By: Admin: 11/06/24 08:53 Dose: 2 gm Documented By: Admin: 11/05/24 20:01 Dose: 2 gm Documented By: Admin: 11/05/24 17:13 Dose: 2 gm Documented By: Admin: 11/05/24 12:26 Dose: 2 gm Documented By: Admin: 11/05/24 09:14 Dose: 2 gm Documented By: Admin: 11/04/24 21:03 Dose: 2 gm Documented By: Admin: 11/04/24 16:33 Dose: 2 gm Documented By: Admin: 11/04/24 12:20 Dose: 2 gm Documented By: Admin: 11/04/24 09:01 Dose: 2 gm Documented By: Admin: 11/03/24 20:58 Dose: 2 gm Documented By: Admin: 11/03/24 16:21 Dose: 2 gm Documented By: Admin: 11/03/24 12:51 Dose: 2 gm Documented By: OO Docusate Sodium (Docusate Sodium 100 Mg Cap) 100 mg PO BID [facility] Stop: 12/03/24 20:59 Last Admin: 11/09/24 10:51 Dose: Not Given Documented By: Admin: 11/08/24 20:27 Dose: 100 mg Documented By: Admin: 11/08/24 12:10 Dose: Not Given Documented By: Admin: 11/07/24 20:18 Dose: Not Given Documented By: Admin: 11/07/24 07:26 Dose: 100 mg Documented By: Admin: 11/06/24 21:15 Dose: 100 mg Documented By: Admin: 11/06/24 09:00 Dose: 100 mg Documented By: Admin: 11/05/24 20:01 Dose: Not Given Documented By: Admin: 11/05/24 09:07 Dose: 100 mg Documented By: Admin: 11/04/24 21:05 Dose: Not Given Documented By: Admin: 11/04/24 08:49 Dose: 100 mg Documented By: Admin: 11/03/24 21:03 Dose: Not Given Documented By: VK Ezetimibe (Ezetimibe 10 Mg Tab) 10 mg PO DAILY [facility] Stop: 12/04/24 08:59 Last Admin: 11/09/24 10:52 Dose: Not Given Documented By: Admin: 11/08/24 12:04 Dose: 10 mg Documented By: Admin: 11/07/24 07:25 Dose: 10 mg Documented By: Admin: 11/06/24 08:51 Dose: 10 mg Documented By: Admin: 11/05/24 09:12 Dose: 10 mg Documented By: Admin: 11/04/24 08:55 Dose: 10 mg Documented By: OO Escitalopram Oxalate (Escitalopram Oxalate 10 Mg Tab) 10 mg PO DAILY [facility] Stop: 12/04/24 08:59 Last Admin: 11/09/24 10:51 Dose: Not Given Documented By: Admin: 11/08/24 12:11 Dose: 10 mg Documented By: Admin: 11/07/24 07:28 Dose: 10 mg Documented By: Admin: 11/06/24 08:52 Dose: 10 mg Documented By: Admin: 11/05/24 09:19 Dose: 10 mg Documented By: Admin: 11/04/24 08:56 Dose: 10 mg Documented By: OO Flecainide Acetate (Flecainide Acetate 100 Mg Tablet) 100 mg PO BID [facility] Stop: 12/03/24 20:59 Last Admin: 11/09/24 08:20 Dose: 100 mg Documented By: Admin: 11/08/24 20:14 Dose: 100 mg Documented By: Admin: 11/08/24 12:03 Dose: 100 mg Documented By: Admin: 11/07/24 20:18 Dose: Not Given Documented By: Admin: 11/07/24 07:28 Dose: 100 mg Documented By: Admin: 11/06/24 21:16 Dose: 100 mg Documented By: Admin: 11/06/24 08:52 Dose: 100 mg Documented By: Admin: 11/05/24 20:01 Dose: 100 mg Documented By: Admin: 11/05/24 09:11 Dose: 100 mg Documented By: Admin: 11/04/24 21:04 Dose: 100 mg Documented By: Admin: 11/04/24 08:55 Dose: 100 mg Documented By: Admin: 11/03/24 20:59 Dose: 100 mg Documented By: ELIO Fluticasone Propionate (Fluticasone Propionate Na Spr 16 Gm Btl) 2 sprays NA DAILY [facility] Stop: 12/03/24 12:59 Last Admin: 11/09/24 08:22 Dose: 2 sprays Documented By: Admin: 11/08/24 08:42 Dose: 2 sprays Documented By: Admin: 11/07/24 07:27 Dose: 2 sprays Documented By: Admin: 11/06/24 08:53 Dose: 2 sprays Documented By: Admin: 11/05/24 09:14 Dose: 2 sprays Documented By: Admin: 11/04/24 09:01 Dose: 2 sprays Documented By: Admin: 11/03/24 12:51 Dose: 2 sprays Documented By: KRISTINE Furosemide (Furosemide Inj 20 Mg/2 Ml Vial) 20 mg IV DAILY [facility] Stop: 12/09/24 08:59 Last Admin: 11/09/24 08:24 Dose: 20 mg Documented By: GEMMA Gabapentin (Gabapentin 300 Mg Cap) 300 mg PO HS [facility] Stop: 12/03/24 20:59 Last Admin: 11/08/24 20:14 Dose: 300 mg Documented By: Admin: 11/07/24 20:18 Dose: Not Given Documented By: Admin: 11/06/24 21:16 Dose: 300 mg Documented By: Admin: 11/05/24 20:02 Dose: 300 mg Documented By: Admin: 11/04/24 21:05 Dose: 300 mg Documented By: Admin: 11/03/24 21:00 Dose: 300 mg Documented By: ELIO Guaifenesin (Guaifenesin 600 Mg Tabcr) 1,200 mg PO Q12 [facility] Stop: 12/03/24 20:59 Last Admin: 11/09/24 10:52 Dose: Not Given Documented By: Admin: 11/08/24 20:14 Dose: 1,200 mg Documented By: Admin: 11/08/24 12:04 Dose: 1,200 mg Documented By: Admin: 11/07/24 20:18 Dose: Not Given Documented By: Admin: 11/07/24 07:26 Dose: 1,200 mg Documented By: Admin: 11/06/24 21:16 Dose: 1,200 mg Documented By: Admin: 11/06/24 08:51 Dose: 1,200 mg Documented By: Admin: 11/05/24 20:02 Dose: 1,200 mg Documented By: Admin: 11/05/24 09:08 Dose: 1,200 mg Documented By: Admin: 11/04/24 21:04 Dose: 1,200 mg Documented By: Admin: 11/04/24 08:52 Dose: 1,200 mg Documented By: Admin: 11/03/24 20:59 Dose: 1,200 mg Documented By: ELIO Doxycycline Hyclate 100 mg/ (Dextrose) 100 mls @ 50 mls/hr IV Q12H ADRIANA Stop: 11/13/24 14:59 Last Infusion: 11/09/24 05:21 Dose: Infused Documented By: Admin: 11/09/24 03:21 Dose: 50 mls/hr Documented By: Infusion: 11/08/24 17:56 Dose: Infused Documented By: Admin: 11/08/24 15:56 Dose: 50 mls/hr Documented By: Infusion: 11/08/24 04:27 Dose: Infused Documented By: Admin: 11/08/24 02:25 Dose: 50 mls/hr Documented By: Infusion: 11/07/24 16:13 Dose: Infused Documented By: Admin: 11/07/24 14:04 Dose: 50 mls/hr Documented By: Infusion: 11/07/24 05:43 Dose: Infused Documented By: Admin: 11/07/24 03:42 Dose: 50 mls/hr Documented By: Infusion: 11/06/24 17:08 Dose: Infused Documented By: Admin: 11/06/24 14:59 Dose: 50 mls/hr Documented By: CONSTANTINE Hydrocortisone Sodium (Succinate 50 mg/ Syringe) 1 mls @ 4 mls/min IV Q6H AD[facility] Stop: 12/07/24 12:44 Last Admin: 11/09/24 14:28 Dose: 4 mls/min Documented By: Admin: 11/09/24 06:31 Dose: 4 mls/min Documented By: Admin: 11/09/24 00:18 Dose: 4 mls/min Documented By: Admin: 11/08/24 17:18 Dose: 4 mls/min Documented By: Admin: 11/08/24 12:53 Dose: 4 mls/min Documented By: Admin: 11/08/24 06:26 Dose: 4 mls/min Documented By: Admin: 11/08/24 00:41 Dose: 4 mls/min Documented By: Admin: 11/07/24 17:23 Dose: 4 mls/min Documented By: Admin: 11/07/24 13:10 Dose: 4 mls/min Documented By: CONSTANTINE Insulin Aspart (Insulin Aspart Per Unit Charge) 0 units SC ACHS ADRIANA Stop: 12/08/24 20:59 Last Admin: 11/09/24 11:43 Dose: Not Given Documented By: Admin: 11/09/24 08:16 Dose: Not Given Documented By: Admin: 11/08/24 20:29 Dose: 2 units Documented By: AMY Co-signed By: CHERRI Melatonin (Melatonin 3 Mg Tab) 3 mg PO HS ADRIANA Stop: 12/03/24 20:59 Last Admin: 11/08/24 20:14 Dose: 3 mg Documented By: Admin: 11/07/24 20:18 Dose: Not Given Documented By: Admin: 11/06/24 21:15 Dose: 3 mg Documented By: Admin: 11/05/24 20:01 Dose: 3 mg Documented By: Admin: 11/04/24 21:04 Dose: 3 mg Documented By: Admin: 11/03/24 20:59 Dose: 3 mg Documented By: ELIO Metoprolol Tartrate (Metoprolol Tartrate 1 Mg/Ml Vial) 5 mg IV Q4 PRN PRN Reason: sustained HR over 120 Stop: 12/08/24 11:59 Last Admin: 11/08/24 10:38 Dose: 5 mg Documented By: DAVID Metoprolol Tartrate (Metoprolol Tartrate 50 Mg Tab) 50 mg PO BID [facility] Stop: 12/08/24 20:59 Last Admin: 11/09/24 08:19 Dose: 50 mg Documented By: Admin: 11/08/24 20:14 Dose: 50 mg Documented By: AMY Pantoprazole Sodium (Pantoprazole 40 Mg Tab) 40 mg PO DAILY [facility] Stop: 12/04/24 08:59 Last Admin: 11/09/24 10:52 Dose: Not Given Documented By: Admin: 11/08/24 12:06 Dose: 40 mg Documented By: Admin: 11/07/24 07:26 Dose: 40 mg Documented By: Admin: 11/06/24 08:52 Dose: 40 mg Documented By: Admin: 11/05/24 09:12 Dose: 40 mg Documented By: Admin: 11/04/24 08:56 Dose: 40 mg Documented By: KRISTINE Polyethylene Glycol (Polyethylene (Miralax) 17 Gm Pack) 17 gm PO DAILY [facility] Stop: 12/04/24 08:59 Last Admin: 11/09/24 10:52 Dose: Not Given Documented By: Admin: 11/08/24 12:09 Dose: Not Given Documented By: Admin: 11/07/24 07:23 Dose: 17 gm Documented By: Admin: 11/06/24 09:00 Dose: 17 gm Documented By: Admin: 11/05/24 09:16 Dose: Not Given Documented By: Admin: 11/04/24 08:58 Dose: 17 gm Documented By: KRISTINE Sodium Chloride (Sodium Chlor 7% 4 Ml Neb) 4 ml NEB BIDR ADRIANA Stop: 12/08/24 18:59 Last Admin: 11/09/24 07:24 Dose: 4 ml Documented By: Admin: 11/08/24 19:44 Dose: 4 ml Documented By: ANGEL (7) Type 2 diabetes mellitus without complication Diabetes mellitus correction insulin use: without rat exterminator use Qualified Code(s): E11.9 - Type 2 diabetes mellitus without complications
[2024-11-09] MEDS: ACETAMINOPHEN 325 MG TAB PO PRN (18:11)
[2024-11-09] MEDS: METOPROLOL TARTRATE 25 MG TAB PO SCH (20:36)
[2024-11-10 06:14] LABS: Base Excess VBG 10.9 mEq/L; HCO3 VBG 36 mmol/L; Oxygen Saturation VBG 81.8 %; PCO2 VBG 50 mmHg (38-50); PO2 VBG 50 mmHg; pH VBG 7.47 (7.36-7.41)
[2024-11-10 06:24] LABS: Hematocrit (blood only) 37.7 % (37.0-47.0); Hemoglobin 12.5 g/dl (12.0-16.0); Mean Corpuscular Hemoglobin 29.8 pg (25.0-34.0); Mean Corpuscular Volume 89.8 fL (80.0-100.0); Platelet Count 482 K/uL (130-400); RDW Standard Deviation 53.2 fL (36.4-46.3); Red Blood Count 4.20 M/uL (4.20-5.40); White Blood Count 10.33 K/ul (4.8-10.8)
[2024-11-10 06:49] LABS: Alanine Aminotransferase 17.0 U/L (7-52); Albumin Globulin Ratio 1.1 (0.9-2); Alkaline Phosphatase 62.0 U/L (34-104); Anion Gap 9.0 (3-11); Bilirubin,Total 0.4 mg/dl (0.2-1.0); Blood Urea Nitrogen 39.0 mg/dl (6-23); Calcium 8.6 mg/dl (8.6-10.3); Carbon Dioxide 31.0 mmol/L (21-32); Chloride 99.0 mmol/L (98-107); Creatinine Clr Calc Pharmacy 95.5 ml/min; Globulin 2.9 gm/dl (2.5-4.0); Glucose 240.0 mg/dl (70-99(Fasting)); Magnesium 1.7 mg/dl (1.7-2.4); Potassium 3.3 mmol/L (3.5-5.1); Sodium 139.0 mmol/L (136-145); Total Protein 6.1 gm/dl (6.0-8.3)
--- NOTE | 2024-11-10 07:32 | XRay Report ---
EXAM: XR chest 1V portable CLINICAL HISTORY: f/u TECHNIQUE: An X-ray image of the chest is obtained in AP projection. COMPARISON: 11/08/2024 FINDINGS: Pulmonary Parenchyma: Unchanged bilateral lower zonal ill-defined opacities No evidence of pleural effusion or pleural thickening. Heart and Mediastinum: Apparent cardiomegaly Bony Thorax: Bony thorax appears intact without fractures or deformities. Soft Tissues: Soft tissues overlying the chest wall are unremarkable. IMPRESSION: 1. Unchanged bilateral lower zonal ill-defined opacities. Would recommend clinical and lab correlation. 2. No interval changes Electronically signed by Espinoza Vela 11-10-2024 07:31 AM
[2024-11-10] MEDS: POTASSIUM CHLORIDE 20 MEQ/15 ML UDC PO SCH (08:55)
--- NOTE | 2024-11-10 14:02 | Hospitalist Progress Note ---
Date of Service November 10, 2024 Assessment & Plan (1) Acute hypoxemic respiratory failure: (2) Aspiration pneumonia: (3) Enterovirus infection: (4) Complicated UTI (urinary tract infection): (5) Chronic indwelling Barry catheter: (6) Hypomagnesemia: (7) Type 2 diabetes mellitus without complication: (8) Atrial fibrillation: (9) On anticoagulant therapy: Plan Patient with respiratory failure most likely due to aspiration pneumonitis. Patient's oxygen requirement significantly improving/decreasing O2 flow post bronchoscopy yesterday Continue to titrate oxygen as able Transition to oral antibiotics Transition to oral Lasix Start to titrate steroids down Continue chest therapies Therapies at bedside updated on care. Explained to him the anticipated this will take some time at this point. Anticipating return to [facility] Admission and Anticipated Discharge Date Admission Date: November 03, 2024 Subjective Patient awake and conversant. Has been titrating oxygen down. Seems to be improving Physical Exam Physical Exam: Constitutional: Alert, nontoxic HEENT: Mucous membranes moist. Lungs: Decreased breath sounds, coarse rhonchi CV: S1-S2, regular Abdomen: Soft, nontender, nondistended Extremities: No significant edema Neuro: Chronic dysarthria Psych: Cooperative, normal mood Results & Data Results & Data Vital Signs (Past 12 Hours) Vital Signs Temp Pulse Pulse Pulse Resp BP Pulse Ox 11/10/24 10:57 36.5 C 65 16 111/66 97 11/10/24 10:00 11/10/24 08:55 55 L 11/10/24 07:34 36.5 C 50 L 20 112/67 100 11/10/24 07:20 49 L 22 97 11/10/24 06:19 45 L 11/10/24 06:18 97 11/10/24 03:15 36.6 C 45 L 24 110/68 98 11/10/24 02:11 95 O2 Del Method O2 Flow Rate 11/10/24 10:57 Nasal Cannula 2 11/10/24 10:00 Nasal Cannula 3 11/10/24 08:55 11/10/24 07:34 Nebulizer 11/10/24 07:20 Nasal Cannula 3 11/10/24 06:19 11/10/24 06:18 High Flow Nasal Cannula 3 11/10/24 03:15 High Flow Nasal Cannula 11/10/24 02:11 High Flow Nasal Cannula 4 Diagnostic Findings Reviewed imaging, laboratory and diagnostic studies. Pertinent findings as below. WBCs 10.3 ABG reviewed, stable Potassium 3.3 Creatinine 0.54 Glucose was reviewed Personally reviewed chest x-ray, persistent lower lobe infiltrates unchanged (7) Type 2 diabetes mellitus without complication Diabetes mellitus fci insulin use: without fci use Qualified Code(s): E11.9 - Type 2 diabetes mellitus without complications
--- NOTE | 2024-11-10 17:14 | Pulmonology Progress Note ---
Date of Service November 10, 2024 Assessment & Plan (1) Atelectasis: (2) Mucus plugging of bronchi: (3) Aspiration pneumonia: (4) Enterovirus infection: (5) Acute hypoxemic respiratory failure: Plan Impression: Debilitated 74-year-old female admitted from [facility] after [facility] event being treated for pneumonia with persistent hypoxemia. CT scan shows fairly dense lower lobe consolidation/atelectasis which is likely resulting in VQ mismatching and persistent hypoxemia. CT chest 11/07/2024 personally reviewed: Patchy groundglass opacity appreciated in the right upper lobe Complete collapse of the left lower lobe, no significant change compared to 11/04/2024 Right lower lobe supradiaphragmatic atelectasis, improved compared to CT chest 11/04/2024 No significant mediastinal lymphadenopathy Patient did have CT abdomen pelvis done April 2024 which did not show collapse/atelectasis of bilateral lower lobes 2D echo 11/05/2024: EF 60-65%, grade 1 diastolic dysfunction, mild MR, mild concentric LVH Social history: Lifetime non-smoker. 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 -- Acute hypoxic respiratory failure Likely secondary to mucous plugging of bilateral lower lobe Continue with aggressive upper airway clearance technique S/p bronchoscopy 11/09/2024 which showed mucous plugging in the left lower lobe along with edematous and friable mucosa Follow-up culture --Multifocal aspiration pneumonia Respiratory BioFire was positive for entero-/rhinovirus on 11/03/2024 Procalcitonin 0.04, nasal MRSA negative --A-fib On Eliquis --History of breast cancer Right-sided initial in 1993 s/p lumpectomy and radiation followed by left sided in 1999 and then relapsed on the right side in 2005 Never got chemotherapy Plan: Chest x-ray from today on personal review shows improvement compared to yesterday morning mild worsening in the left lower lobe compared to post bronchoscopy Continue with 7% hypertonic saline, Mucomyst along with CoughAssist Okay to resume Eliquis from pulmonary perspective Please note the above document was generated using voice recognition software. It may contain grammatical, syntax or spelling errors.Any formal questions or concerns about the content, text or information contained within the body of this dictation should be directly addressed to the provider for clarification. Admission and Anticipated Discharge Date Admission Date: November 03, 2024 Subjective Patient seen and examined at bedside. No acute distress, no adverse events overnight Patient is feeling much better after bronchoscopy yesterday She was saturating 99-100% on 1 L oxygen Patient's family was also in the room Cough bringing up little bit of bloody phlegm. Denied any chest pain Has been compliant with incentive spirometer as well as CoughAssist Review of Systems 2 Review of Systems: All systems reviewed & are unremarkable except as noted in Subjective Physical Exam 2 Physical Exam: Constitutional: No acute distress HEENT: EOMI, PERRLA Respiratory system: Decreased air entry bilaterally, no wheeze, positive rhonchi, positive crackles bilaterally CVS: S1-S2 positive, no murmurs or gallops Abdomen: Soft, nontender, nondistended, positive bowel sounds x4 Extremities: +2 pulses bilaterally radialis/ dorsalis pedis, no cyanosis, no edema, right-sided hemiparesis Neuro: Awake alert oriented to self and place Psych: Normal mood and affect G/U: Positive Barry Skin: no rashes, warm and dry Lymphatic: no cervical or axillary lymphadenopathy Results & Data Results & Data Vital Signs (Past 12 Hours) Vital Signs Temp Pulse Pulse Pulse Resp BP Pulse Ox 11/10/24 16:44 36.5 C 53 L 19 115/61 98 11/10/24 15:27 36.4 C L 72 18 106/59 L 97 11/10/24 13:53 53 L 11/10/24 10:57 36.5 C 65 16 111/66 97 11/10/24 10:00 11/10/24 08:55 55 L 11/10/24 07:34 36.5 C 50 L 20 112/67 100 11/10/24 07:20 49 L 22 97 11/10/24 06:19 45 L 11/10/24 06:18 97 O2 Del Method O2 Flow Rate 11/10/24 16:44 Room Air 11/10/24 15:27 Room Air 11/10/24 13:53 11/10/24 10:57 Nasal Cannula 2 11/10/24 10:00 Nasal Cannula 3 11/10/24 08:55 11/10/24 07:34 Nebulizer 11/10/24 07:20 Nasal Cannula 3 11/10/24 06:19 11/10/24 06:18 High Flow Nasal Cannula 3 Laboratory Results 11/10/24 05:28 11/10/24 05:28 PG Care Time/CCT Total # of Minutes Spent Total Time Spent with Patient: Total time spent is greater than 50% in coordination of care (as documented) at patient's floor/unit and/or counseling patient: Coding Level of Care Code 35355 SUB INP/OBS CARE 2/35MIN Diagnoses Atelectasis J98.11 Mucus plugging of bronchi T17.500A Aspiration pneumonia J69.0 Enterovirus infection B34.1 Acute hypoxemic respiratory failure J96.01
[2024-11-10] MEDS: DOXYCYCLINE HYCLATE 100 MG CAP PO SCH (21:33)
[2024-11-11 07:38] LABS: Anion Gap 4.0 (3-11); Blood Urea Nitrogen 37.0 mg/dl (6-23); Calcium 8.4 mg/dl (8.6-10.3); Carbon Dioxide 33.0 mmol/L (21-32); Chloride 104.0 mmol/L (98-107); Creatinine Clr Calc Pharmacy 111.1 ml/min; Glucose 134.0 mg/dl (70-99(Fasting)); Potassium 4.0 mmol/L (3.5-5.1); Sodium 141.0 mmol/L (136-145)
--- NOTE | 2024-11-11 08:38 | Pulmonology Progress Note ---
Date of Service November 11, 2024 Assessment & Plan (1) Atelectasis: (2) Mucus plugging of bronchi: (3) Aspiration pneumonia: (4) Enterovirus infection: (5) Acute hypoxemic respiratory failure: Plan Impression: Debilitated 74-year-old female admitted [facility] after aspiration event being treated for pneumonia with persistent hypoxemia. CT scan shows fairly dense lower lobe consolidation/atelectasis which is likely resulting in VQ mismatching and persistent hypoxemia. CT chest 11/07/2024 personally reviewed: Patchy groundglass opacity appreciated in the right upper lobe Complete collapse of the left lower lobe, no significant change compared to 11/04/2024 Right lower lobe supradiaphragmatic atelectasis, improved compared to CT chest 11/04/2024 No significant mediastinal lymphadenopathy Patient did have CT abdomen pelvis done April 2024 which did not show collapse/atelectasis of bilateral lower lobes 2D echo 11/05/2024: EF 60-65%, grade 1 diastolic dysfunction, mild MR, mild concentric LVH Social history: Lifetime non-smoker. 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 -- Acute hypoxic respiratory failure Likely secondary to mucous plugging of bilateral lower lobe Continue with aggressive upper airway clearance technique S/p bronchoscopy 11/09/2024 which showed mucous plugging in the left lower lobe along with edematous and friable mucosa Follow-up culture --Multifocal aspiration pneumonia Respiratory BioFire was positive for entero-/rhinovirus on 11/03/2024 Procalcitonin 0.04, nasal MRSA negative --A-fib On Eliquis --History of breast cancer Right-sided initial in 1993 s/p lumpectomy and radiation followed by left sided in 1999 and then relapsed on the right side in 2005 Never got chemotherapy Plan: Continue with 7% hypertonic saline, Mucomyst along with CoughAssist Would recommend to continue with the same upper airway clearance technique given at home I think hypertonic saline and flutter valve should suffice. If she still has issues then chest vest could be thought of to be given at home. Case was discussed with RN as well as primary team No further recommendation from pulmonary perspective, will sign off Please call directly with any questions Please note the above document was generated using voice recognition software. It may contain grammatical, syntax or spelling errors.Any formal questions or concerns about the content, text or information contained within the body of this dictation should be directly addressed to the provider for clarification. Admission and Anticipated Discharge Date Admission Date: November 03, 2024 Subjective Patient seen and examined at bedside. No acute distress, no adverse events overnight She was saturating 96% on room air Overall stated that her breathing is improving Coughing up bringing up clear phlegm now. No more hemoptysis No nausea or vomiting Was complaining of some discomfort at the site of the Barry catheter Review of Systems 2 Review of Systems: All systems reviewed & are unremarkable except as noted in Subjective Physical Exam 2 Physical Exam: Constitutional: No acute distress HEENT: EOMI, PERRLA Respiratory system: Decreased air entry bilaterally, no wheeze, positive rhonchi, positive crackles bilaterally CVS: S1-S2 positive, no murmurs or gallops Abdomen: Soft, nontender, nondistended, positive bowel sounds x4 Extremities: +2 pulses bilaterally radialis/ dorsalis pedis, no cyanosis, no edema, right-sided hemiparesis Neuro: Awake alert oriented to self and place Psych: Normal mood and affect G/U: Positive Barry Skin: no rashes, warm and dry Lymphatic: no cervical or axillary lymphadenopathy Results & Data Results & Data Vital Signs (Past 12 Hours) Vital Signs Temp Pulse Pulse Resp BP Pulse Ox O2 Del Method 11/11/24 07:14 36.6 C 54 L 16 127/68 98 Room Air 11/11/24 07:07 58 L 18 98 Room Air 11/10/24 21:30 Room Air 11/10/24 21:09 36.4 C L 58 L 18 130/74 94 Room Air Laboratory Results 11/10/24 05:28 11/11/24 06:23 PG Care Time/CCT Total # of Minutes Spent Total Time Spent with Patient: Total time spent is greater than 50% in coordination of care (as documented) at patient's floor/unit and/or counseling patient: Coding Level of Care Code 23369 SUB INP/OBS CARE 2/35MIN Diagnoses Atelectasis J98.11 Mucus plugging of bronchi T17.500A Aspiration pneumonia J69.0 Enterovirus infection B34.1 Acute hypoxemic respiratory failure J96.01
--- NOTE | 2024-11-11 09:17 | XRay Report ---
XR chest 1V portable CLINICAL HISTORY: f/u COMPARISON STUDY: 11/10/2024 FINDINGS: Heart size and pulmonary vasculature are normal. There is stable focal rounded opacity at t he right lung base. Stable consolidation at the left lower lung with obscuration of the left hemidiap hragm. No pneumothorax. IMPRESSION: Stable exam. ACT 112: Negative or not required by law. Electronically signed by: Miguel Duarte M.D. 11/11/2024 9:16 AM
--- NOTE | 2024-11-11 13:26 | Hospitalist Progress Note ---
Date of Service November 11, 2024 Assessment & Plan (1) Acute hypoxemic respiratory failure: (2) Aspiration pneumonia: (3) Enterovirus infection: (4) Complicated UTI (urinary tract infection): (5) Chronic indwelling Barry catheter: (6) Hypomagnesemia: (7) Type 2 diabetes mellitus without complication: (8) Atrial fibrillation: (9) On anticoagulant therapy: Plan Patient with acute hypoxic respiratory failure due to aspiration pneumonia/pneumonitis, significantly improved and is now on room air Reviewed pulmonary recommendations for ongoing upper airway clearance techniques. Otherwise they have signed off titrate steroids Continue oral antibiotics Increase activity Communication with case management, anticipate discharge back to [facility] within 24 to 48 hours Updated via phone. Aware that patient is significantly improved. Aware anticipating probable discharge tomorrow Admission and Anticipated Discharge Date Admission Date: November 03, 2024 Subjective Patient significantly improved. Conversant. On room air Physical Exam Physical Exam: Constitutional: Alert, sitting up in bed, no distress HEENT: Mucous membranes moist. Lungs: Decreased breath sounds, rhonchi significantly improved CV: S1-S2, irregular Abdomen: Soft, nontender, nondistended Extremities: No significant edema Neuro: No focal deficits, generally weak Psych: Cooperative, normal mood Results & Data Results & Data Vital Signs (Past 12 Hours) Vital Signs Temp Pulse Pulse Resp BP Pulse Ox O2 Del Method 11/11/24 10:15 Room Air 11/11/24 07:14 36.6 C 54 L 16 127/68 98 Room Air 11/11/24 07:07 58 L 18 98 Room Air Diagnostic Findings Reviewed imaging, laboratory and diagnostic studies. Pertinent findings as below. Creatinine 0.46, stable Glucoses reviewed Electrolytes stable Chest x-ray stable (7) Type 2 diabetes mellitus without complication Diabetes mellitus assisted insulin use: without assisted use Qualified Code(s): E11.9 - Type 2 diabetes mellitus without complications
[2024-11-12 07:12] VITALS: BP 132/78; TEMP 97.7
[2024-11-12 07:35] VITALS: RESP 18; O2SAT 97
[2024-11-12] MEDS: predniSONE 20 MG TAB PO SCH (08:25)
--- NOTE | 2024-11-12 10:33 | Discharge Summary ---
Discharge Summary Date of Service November 12, 2024 Principal Dx & Hospital Course #1 = Principal Diagnosis (1) Acute hypoxemic respiratory failure: (2) Aspiration pneumonia: (3) Enterovirus infection: (4) Complicated UTI (urinary tract infection): (5) Chronic indwelling Barry catheter: (6) Hypomagnesemia: (7) Type 2 diabetes mellitus without complication: (8) Atrial fibrillation: (9) On anticoagulant therapy: (10) Mucus plugging of bronchi: Plan Patient is a 74-year-old female who currently at [facility] presented to the emergency room with acute hypoxia after choking episode that required a Heimlich maneuver after eating a grilled cheese sandwich. In the emergency room patient was febrile and requiring 10 L of supplemental oxygen. Patient was admitted to the hospital. Started on broad-spectrum antibiotics and supported with oxygen for acute aspiration pneumonia/pneumonitis. She was started on a flutter valve and aggressive chest physiotherapy. She was also started on mucolytics. Patient has a chronic indwelling Barry and empirically treated for possible UTI. Due to her complicated history and hemiparesis and Hubert diaphragm paresis pulmonary consultation was obtained. They supported aggressive pulmonary toilet. Despite these aggressive measures patient's respiratory status continued to decline and her oxygen requirements increased. Recurrent imaging showed continued atele ctasis and infiltrates. It was determined that some of her respiratory failure most likely due to mucous plugging. Patient underwent bronchoscopy with evacuation of numerous mucous plugs. It also showed inflamed and friable tissues. Post bronchoscopy patient rapidly improved. She was titrated off high flow oxygen to room air. Patient maintained on room air for the last 48 hours. Her diet was advanced and she tolerated this well with alterations in the texture due to her history of aspiration. Laboratory studies stabilized. Her strength and ability to interact significantly are improved and returned to baseline. Family had continue to hold her bed at [facility]. On the day of discharge definitely appropriate for [facility]. She completed a course of antibiotics for her aspiration pneumonia while here in the hospital. Benefit from ongoing physical therapies. Also benefit from ongoing chest physiotherapy. Pulmonary is recommending twice daily hypertonic saline and nebulizers and flutter valve. Could consider a chest physiotherapy vest if she continues to have issues with excessive rhonchi and mucous plugging. Family was kept up-to-date throughout her entire hospitalization. Aware and agreeable that she is returning to [facility] today for ongoing care. 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 Hx obtained from ED provider, pt and at bedside along with external chart review. Earlier this month she did have a viral URI. She was [facility] by [facility] for [facility] on 10/27. She was again seen on 11/01 by provider due to a choking episode that occurred on 10/30 requiring Heimlich maneuver with clearance of a piece of grilled cheese. She did require transient supplemental oxygen and since this event has been having ongoing respiratory symptoms. She has been having documented fevers 10/29. Tmax was 102. Due to this she was referred to ED. She overall feels unwell today. She complains of shortness of breath, cough and feeling feverish. She overall reports feeling unwell for the last few weeks. at bedside states he also has similar symptoms. Overall her appetite has been diminished. She has a chronic Barry catheter for which was last exchanged on 10/14. She denies any dizziness, lightheadedness, chest pain, palpitations, hemoptysis, nausea, vomiting, abdominal pain. Her last bowel movement was yesterday. She has been taking her medications regularly. At baseline she is mostly in a wheelchair at [facility]. In ED patient required 10 L of supplemental oxygen via facemask due to mouth breathing. She reports mouth breathing due to sinus congestion. Admission Exam Per Admitting Provider See H&P Discharge Exam Constitutional: Alert, nontoxic, no acute distress HEENT: Mucous membranes moist. Lungs: Decreased breath sounds, few rhonchi that improved with cough CV: S1-S2, irregular Abdomen: Soft, nontender, nondistended Extremities: No significant edema Neuro: Chronic deficits from previous stroke Psych: Cooperative, normal mood Updated Medication List Medication Instructions Recorded Confirmed Type bisacodyl 10 mg rectal suppository 10 mg OK DAILY PRN Constipation 04/24/24 11/03/24 History docusate sodium 100 mg capsule 100 mg PO BID 04/24/24 11/03/24 History glucagon HCl 1 mg solution for 1 mg subcut ONCE PRN Hypoglycemia 04/24/24 11/03/24 History injection ondansetron HCl 4 mg tablet 4 mg PO Q4H 04/24/24 11/03/24 History sennosides 8.6 mg-docusate sodium 1 tab-cap PO DAILY PRN Constipation 04/24/24 11/03/24 History 50 mg tablet (Senokot-S) simethicone 80 mg tablet 80 mg PO TID PRN flatulence 04/24/24 11/03/24 History escitalopram oxalate 10 mg tablet 10 mg PO DAILY #30 tabs 05/13/24 11/03/24 Rx (Lexapro) ezetimibe 10 mg tablet 10 mg PO DAILY #30 tabs 05/13/24 11/03/24 Rx L.acidop,casei,lactis,rham-B.lact,jahaira 1 cap PO DAILY 11/03/24 11/03/24 History 625 mg (10 billion cell) capsule (Advanced Probiotic) acetaminophen 325 mg tablet 650 mg PO Q4H PRN Pain 11/03/24 11/03/24 History allopurinol 300 mg tablet 450 mg PO DAILY 11/03/24 11/03/24 History apixaban 5 mg tablet 5 mg PO BID 11/03/24 11/03/24 History baclofen 10 mg tablet 10 mg PO BID PRN spasticity 11/03/24 11/03/24 History cranberry extract 425 mg capsule 425 mg PO DAILY 11/03/24 11/03/24 History d-mannose 500 mg capsule 500 mg PO DAILY 11/03/24 11/03/24 History diclofenac sodium 1 % topical gel 2 g EXT QID 11/03/24 11/03/24 History (Voltaren Arthritis Pain) evolocumab 140 mg/mL subcutaneous 140 mg subcut Q14D 11/03/24 11/03/24 History pen injector (Repatha Corazonick) flecainide 100 mg tablet 100 mg PO BID 11/03/24 11/03/24 History furosemide 40 mg tablet 40 mg PO DAILY PRN weight gain 11/03/24 11/03/24 History >than 2 lbs gabapentin 300 mg capsule 300 mg PO HS 11/03/24 11/03/24 History guaifenesin 100 mg/5 mL oral liquid 200 mg PO Q4H PRN Cough 11/03/24 11/03/24 History ipratropium 0.5 mg-albuterol 3 mg 3 ml inhalation Q6H PRN 11/03/24 11/03/24 History (2.5 mg base)/3 mL nebulization cough/SOB/wheeze soln lidocaine HCl 2 % topical gel 1 applic topical Q6H PRN urethral 11/03/24 11/03/24 History pain melatonin 3 mg tablet 3 mg PO HS 11/03/24 11/03/24 History metformin 500 mg tablet,extended 1,000 mg PO BID 11/03/24 11/03/24 History release 24 hr metoprolol tartrate 25 mg tablet 25 mg PO BID 11/03/24 11/03/24 History pantoprazole 40 mg tablet,delayed 40 mg PO DAILY 11/03/24 11/03/24 History release polyethylene glycol 3350 17 17 g PO BID 11/03/24 11/03/24 History gram/dose oral powder albuterol sulfate 2.5 mg/3 mL 2.5 mg (3 mL) NEB Q6H PRN 11/12/24 Rx (0.083 %) solution for nebulization shortness of breath or wheezing #90 mL sodium chloride 7 % for 4 ml NEB BIDR #240 mL 11/12/24 Rx nebulization Hospital Stay Data Consultations 11/03/24 09:38 ED Decision to Admit Stat Diagnostic Imagining Performed 11/04/24 17:01 CT chest diagnostic w con Urgent 11/05/24 10:30 Fluoro video [FL video swallow] Routine 11/07/24 16:32 CT chest diagnostic w con Urgent Reviewed imaging, laboratory and diagnostic studies. Pertinent findings as below. WBCs 10.3 Hemoglobin 12.5 Platelets 482 Electrolytes within normal range Creatinine 0.46 Glucose 135 Respiratory viral panel showed rhinovirus. This was diagnosed prior to admission on 10/27/2024 Viral testing from bronchoscopy pending Respiratory secretion culture from bronchoscopy no significant growth Urine culture grew out Proteus and Klebsiella treated while here in the hospital blood cultures no growth at 5 days Pathology from bronchoscopy rare macrophages and benign cells Echocardiogram showed ejection fraction 6065%, no evidence of pulmonary hypertension, minimal valvular disease Pending Results Patient Have Any Pending Studies at Discharge: No Discharge Instructions Given to Patient (Per Discharging Provider) Patient should continue with daily physical therapy and Occupational Therapy Strict expiration precautions Continue lung expansion and flutter valve treatments Total Time Total Time Spent Total Time Spent (In Minutes): 45
[2024-11-12 11:22] VITALS: PULSE 58
== END 2024-11-12 12:11 | DRG 177 ==
LOC: ED 07:26 → SUATTDRO 10:28 → 2S 10:28 → 3W 11-10 16:30